=== PATIENT | female | born 1935 | race Caucasian/White ===

== ENCOUNTER → 2016-07-15 | Outpatient (CLI) | payer OTHER ==
[~2016-07-15] MED LIST: ARTISPR PO; BIOF500T PO; CALC-20 PO; CHLL PO; CHOL1000 PO; CRAN500C2 PO; CYAN1LOZ PO; FEXO1TAB49 PO; FLV1 PO; FLX10 PO; FRS/40 PO; GLC/500 PO; HYDR-5688 PO; HYDR5SYP11 PO; INSU1.2I SC; IPRA0.037 NAE; LORA-741 PO; LOSA1TAB PO; LUTE15CA PO; MAGNTAB4 PO; METH2.5T PO; METO1TAB66 PO; PANT40TA PO; POTA10CA28 PO; PROB1TAB16 PO; SIMV20TA2 PO; SPIR50TA2 PO; TOCI80IN INJ; WARF-283 PO; WARF4TAB8 PO; ZNTT/150 PO
[2016-07-15 09:33] LABS: BASO % 0.4 %; BASO ABS # 0.04 K/uL (0-0.2); COMPLETE YES; EOS % 3.8 %; HEMATOCRIT 40.1 % (37-47); IG% 0.2 %; LYMPH % 17.9 %; LYMPH ABS # 1.76 K/uL (1.2-3.4); MEAN CELL VOLUME 93.7 fL (80-100); MEAN CORPUSCULAR HGB CONC 34.2 g/dl (32-36); MEAN PLATELET VOLUME 9.4 fL (7.4-10.4); MONO % 6.1 %; NEUT % 71.6 %; PLATELET COUNT 269 K/uL (130-400); RED BLOOD COUNT 4.28 M/uL (4.2-5.4); WHITE BLOOD COUNT 9.85 K/uL (4.8-10.8)
[2016-07-15 09:42] LABS: BLOOD UREA NITROGEN 40 mg/dl (7-18); CALCIUM 9.6 mg/dl (8.5-10.1); CARBON DIOXIDE 26 mmol/L (21-32); CHLORIDE 99 mmol/L (98-107); GLUCOSE 165 mg/dl (70-99); PHOSPHORUS 3.2 mg/dl (2.5-4.9); POTASSIUM 4.4 mmol/L (3.5-5.1); SODIUM 137 mmol/L (136-145)
== END | disposition home or self-care (01) ==
LOC: C.LAB1850 08:13
PROVIDERS: ATTEND Internal Medicine Nephrology
DX: I50.22 Chronic systolic (congestive) heart failure (principal); N18.3 Chronic kidney disease, stage 3 (moderate)

== ENCOUNTER → 2016-09-11 | Outpatient (CLI) | payer OTHER ==
[~2016-09-11] MED LIST changes: +METO-452 PO; -METO1TAB66 PO
[2016-09-11 09:52] LABS: ESTIMATED AVERAGE GLUCOSE 166 mg/dl; HA1C FLAG Normal (Normal)
[2016-09-11 10:04] LABS: ALT/SGPT 27 U/L (12-78); BLOOD UREA NITROGEN 36 mg/dl (7-18); BUN/CREATININE RATIO 21.2 (10-20); CALCIUM 9.6 mg/dl (8.5-10.1); CARBON DIOXIDE 26 mmol/L (21-32); CHLORIDE 99 mmol/L (98-107); CHOLESTEROL 134 mg/dl (0-200); GLUCOSE 177 mg/dl (70-99); POTASSIUM 4.2 mmol/L (3.5-5.1); SODIUM 134 mmol/L (136-145); TRIGLYCERIDES 176 mg/dl (0-150); VERY LOW DENSITY LIPOPROT CALC 35 mg/dl
[2016-09-11 10:14] LABS: ALB/GLOB RATIO 1.1 (0.9-2); ALKALINE PHOSPHATASE 65 U/L (45-117); AST/SGOT 20 U/L (15-37); CHOLESTEROL/HDL RATIO 3.4; HDL CHOLESTEROL 40 mg/dl; LDL CHOLESTEROL CALCULATED 59 mg/dl
[2016-09-11 10:54] LABS: RATIO 18.3 mcg/mg (0-30.0)
== END | disposition home or self-care (01) ==
LOC: C.LAB1850 08:50
PROVIDERS: ATTEND Family Medicine
DX: E11.9 Type 2 diabetes mellitus without complications (principal); Z51.81 Encounter for therapeutic drug level monitoring; Z79.01 Long term (current) use of anticoagulants; I48.91 Unspecified atrial fibrillation

== ENCOUNTER → 2017-01-28 | Outpatient (CLI) | payer OTHER ==
[~2017-01-28] MED LIST changes: -CALC-20 PO; -CHOL1000 PO; -CYAN1LOZ PO; -METO-452 PO; +METO1TAB66 PO; -PROB1TAB16 PO
[2017-01-28 09:40] LABS: BASO % 0.4 %; BASO ABS # 0.03 K/uL (0-0.2); COMPLETE YES; EOS % 3.2 %; IG% 0.1 %; LYMPH % 24.2 %; LYMPH ABS # 1.65 K/uL (1.2-3.4); MEAN CELL VOLUME 97.2 fL (80-100); MEAN CORPUSCULAR HEMOGLOBIN 31.8 pg (25-34); MEAN CORPUSCULAR HGB CONC 32.7 g/dl (32-36); MEAN PLATELET VOLUME 9.7 fL (7.4-10.4); MONO % 11.9 %; NEUT % 60.2 %; PLATELET COUNT 242 K/uL (130-400); RED BLOOD COUNT 4.22 M/uL (4.2-5.4); WHITE BLOOD COUNT 6.81 K/uL (4.8-10.8)
[2017-01-28 09:57] LABS: URINE PROTIEN/CREAT RATIO 0.2 (0-0.2); URINE TOTAL PROTEIN 13.2 mg/dl (0-11.9)
[2017-01-28 10:00] LABS: BLOOD UREA NITROGEN 38 mg/dl (7-18); CALCIUM 9.2 mg/dl (8.5-10.1); CARBON DIOXIDE 29 mmol/L (21-32); CHLORIDE 103 mmol/L (98-107); CHOLESTEROL 145 mg/dl (0-200); GLUCOSE 170 mg/dl (70-99); MAGNESIUM 2.2 mg/dl (1.8-2.4); POTASSIUM 4.5 mmol/L (3.5-5.1); SODIUM 138 mmol/L (136-145)
[2017-01-28 10:03] LABS: CHOLESTEROL/HDL RATIO 3.6; HDL CHOLESTEROL 40 mg/dl; LDL CHOLESTEROL CALCULATED 62 mg/dl; PHOSPHORUS 3.1 mg/dl (2.5-4.9); TRIGLYCERIDES 216 mg/dl (0-150); VERY LOW DENSITY LIPOPROT CALC 43 mg/dl
[2017-01-28 10:07] LABS: URINE APPEARANCE CLEAR (CLEAR); URINE BILIRUBIN NEG (NEG); URINE COLOR YELLOW; URINE NITRITE NEG (NEG); URINE PH 5.5 (4.5-7.5); URINE SPECIFIC GRAVITY 1.016 (1.000-1.030); UROBILINOGEN NEG (NEG); ZZUR CULT IF INDIC CLEAN CATCH NO
[2017-01-28 10:18] LABS: MANUAL MICROSCOPIC REQUIRED? NO; REVIEW REQ? NO
[2017-01-28 10:19] LABS: ESTIMATED AVERAGE GLUCOSE 160 mg/dl; HA1C FLAG Normal (Normal)
== END | disposition home or self-care (01) ==
LOC: C.LAB1850 07:55
PROVIDERS: ATTEND Nurse Practitioner Family
DX: N18.3 Chronic kidney disease, stage 3 (moderate) (principal); I48.0 Paroxysmal atrial fibrillation; E78.5 Hyperlipidemia, unspecified; I12.9 Hypertensive chronic kidney disease with stage 1 through stage 4 chronic kidney disease, or unspecified chronic kidney disease; E11.22 Type 2 diabetes mellitus with diabetic chronic kidney disease

== ENCOUNTER → 2017-04-08 | Outpatient (CLI) | payer OTHER ==
[~2017-04-08] MED LIST changes: -CRAN500C2 PO; -LUTE15CA PO; +METO-452 PO; -METO1TAB66 PO; -ZNTT/150 PO
--- NOTE | 2017-04-09 15:22 | MAMMOGRAPHY REPORT ---
BILATERAL DIGITAL SCREENING MAMMOGRAM WITH CAD: 04/08/2017 CLINICAL HISTORY: Routine screening. Patient has no complaints. TECHNIQUE: Current study was also evaluated with a Computer Aided Detection (CAD) system. Bilateral CC and MLO views were obtained. COMPARISON: Comparison is made to exams dated: 04/07/2016 mammogram, 03/21/2015 mammogram, 01/17/2014 m ammogram, 04/28/2013 mammogram, 10/19/2012 mammogram, and 10/17/2012 mammogram - [facility] nter. BREAST COMPOSITION: The tissue of both breasts is heterogeneously dense, which may obscure small mas ses. FINDINGS: No suspicious masses, calcifications, or areas of architectural distortion are noted in ei ther breast. There has been no significant interval change compared to prior exams. Bilateral asymme tries and bilateral benign-appearing calcifications are not significantly changed. A pacemaker proje cts over the left pectoralis muscle. IMPRESSION: ACR BI-RADS CATEGORY 2: BENIGN There is no mammographic evidence of malignancy. A 1 year screening mammogram is recommended. The pa tient will receive written notification of the results. Approximately 10% of breast cancers are not detected with mammography. A negative mammographic report should not delay biopsy if a clinically suggestive mass is present. Arely Agee M.D. ah/:04/08/2017 16:11:15 Motor Vehicle Escort Driver: Ashley ESCOBAR([place])([place])([place]), [facility] letter sent: Normal 1/2 BI-RADS Code: ACR BI-RADS Category 2: Benign
== END | disposition home or self-care (01) ==
LOC: C.MAMM 09:55
PROVIDERS: ATTEND Nurse Practitioner Family
DX: Z12.31 Encounter for screening mammogram for malignant neoplasm of breast (principal)

== ENCOUNTER → 2017-05-03 | Outpatient (CLI) | payer OTHER ==
[2017-05-03 09:41] LABS: URINE APPEARANCE CLEAR (CLEAR); URINE BILIRUBIN NEG (NEG); URINE COLOR YELLOW; URINE NITRITE NEG (NEG); URINE SPECIFIC GRAVITY 1.014 (1.000-1.030); UROBILINOGEN NEG (NEG); ZZUR CULT IF INDIC CLEAN CATCH NO
[2017-05-03 09:42] LABS: MANUAL MICROSCOPIC REQUIRED? NO; REVIEW REQ? NO
[2017-05-03 09:59] LABS: CREATININE, URINE 75.5 mg/dl; URINE PROTIEN/CREAT RATIO 0.2 (0-0.2); URINE TOTAL PROTEIN 11.5 mg/dl (0-11.9)
[2017-05-03 10:00] LABS: BLOOD UREA NITROGEN 33 mg/dl (7-18); BUN/CREATININE RATIO 18.7 (10-20); CARBON DIOXIDE 29 mmol/L (21-32); CHLORIDE 100 mmol/L (98-107); CREATININE 1.78 mg/dl (0.60-1.20); GLUCOSE 136 mg/dl (70-99); MAGNESIUM 2.1 mg/dl (1.8-2.4); POTASSIUM 4.3 mmol/L (3.5-5.1); SODIUM 137 mmol/L (136-145)
[2017-05-03 10:02] LABS: PHOSPHORUS 3.3 mg/dl (2.5-4.9); TRIGLYCERIDES 135 mg/dl (0-150)
[2017-05-03 10:05] LABS: ESTIMATED AVERAGE GLUCOSE 143 mg/dl; HA1C FLAG Normal (Normal)
== END | disposition home or self-care (01) ==
LOC: C.LAB1850 07:51
PROVIDERS: ATTEND Internal Medicine Nephrology
DX: N18.3 Chronic kidney disease, stage 3 (moderate) (principal); E78.5 Hyperlipidemia, unspecified; E11.9 Type 2 diabetes mellitus without complications; E11.42 Type 2 diabetes mellitus with diabetic polyneuropathy

== ENCOUNTER → 2017-07-19 | Outpatient (CLI) | payer OTHER ==
[~2017-07-19] MED LIST changes: -ARTISPR PO; -FEXO1TAB49 PO; -FLX10 PO; -HYDR-5688 PO; -HYDR5SYP11 PO; -LORA-741 PO; -MAGNTAB4 PO; +MONT1TAB5 PO; -POTA10CA28 PO
[2017-07-19 14:59] LABS: HEMATOCRIT 41.4 % (37-47); HEMOGLOBIN 14.2 g/dL (12.0-16.0); MEAN CELL VOLUME 94.1 fL (80-100); MEAN CORPUSCULAR HEMOGLOBIN 32.3 pg (25-34); MEAN CORPUSCULAR HGB CONC 34.3 g/dl (32-36); MEAN PLATELET VOLUME 9.6 fL (7.4-10.4); PLATELET COUNT 223 K/uL (130-400); RED CELL DISTRIBUTION WIDTH CV 14.8 % (11.5-14.5); RED CELL DISTRIBUTION WIDTH SD 49.3 fL (36.4-46.3); WHITE BLOOD COUNT 8.06 K/uL (4.8-10.8)
[2017-07-19 15:29] LABS: ALBUMIN 3.9 gm/dl (3.4-5.0); ALT/SGPT 28 U/L (12-78); AST/SGOT 22 U/L (15-37); BLOOD UREA NITROGEN 42 mg/dl (7-18); CALCIUM 9.3 mg/dl (8.5-10.1); CARBON DIOXIDE 25 mmol/L (21-32); CREATININE 1.97 mg/dl (0.60-1.20); GLUCOSE 110 mg/dl (70-99); POTASSIUM 4.2 mmol/L (3.5-5.1); SODIUM 134 mmol/L (136-145)
[2017-07-19 15:39] LABS: ALKALINE PHOSPHATASE 72 U/L (45-117); TOTAL PROTEIN 7.6 gm/dl (6.4-8.2)
== END | disposition home or self-care (01) ==
LOC: C.LAB1850 14:03
PROVIDERS: ATTEND Physician Assistant
DX: I50.22 Chronic systolic (congestive) heart failure (principal); R06.02 Shortness of breath

== ENCOUNTER → 2017-08-07 | Outpatient (CLI) | payer OTHER ==
[~2017-08-07] MED LIST changes: -GLC/500 PO
[2017-08-07 07:52] LABS: BASO % 0.9 %; BASO ABS # 0.06 K/uL (0-0.2); EOS % 4.6 %; HEMATOCRIT 43.3 % (37-47); HEMOGLOBIN 14.9 g/dL (12.0-16.0); IG# 0.02 K/uL (0.00-0.02); LYMPH % 31.4 %; LYMPH ABS # 2.06 K/uL (1.2-3.4); MEAN CELL VOLUME 93.7 fL (80-100); MEAN CORPUSCULAR HEMOGLOBIN 32.3 pg (25-34); MEAN CORPUSCULAR HGB CONC 34.4 g/dl (32-36); MEAN PLATELET VOLUME 9.3 fL (7.4-10.4); MONO % 10.2 %; MONO ABS # 0.67 K/uL (0.11-0.59); NEUT % 52.6 %; NEUT ABS # 3.46 K/uL (1.4-6.5); PLATELET COUNT 229 K/uL (130-400); RED CELL DISTRIBUTION WIDTH CV 15.5 % (11.5-14.5); RED CELL DISTRIBUTION WIDTH SD 51.6 fL (36.4-46.3); WHITE BLOOD COUNT 6.57 K/uL (4.8-10.8)
[2017-08-07 08:25] LABS: ALBUMIN 4.3 gm/dl (3.4-5.0); ALT/SGPT 30 U/L (12-78); BLOOD UREA NITROGEN 54 mg/dl (7-18); CALCIUM 9.4 mg/dl (8.5-10.1); CARBON DIOXIDE 30 mmol/L (21-32); CHOLESTEROL 156 mg/dl (0-200); CREATININE 2.05 mg/dl (0.60-1.20); CREATININE RANDOM URINE 73.5 mg/dl; GLUCOSE 150 mg/dl (70-99); POTASSIUM 4.1 mmol/L (3.5-5.1); SODIUM 136 mmol/L (136-145)
[2017-08-07 08:33] LABS: ALKALINE PHOSPHATASE 87 U/L (45-117); AST/SGOT 21 U/L (15-37); LDL CHOLESTEROL CALCULATED 79 mg/dl; TOTAL PROTEIN 8.1 gm/dl (6.4-8.2)
== END | disposition home or self-care (01) ==
LOC: C.LAB 06:59
PROVIDERS: ATTEND Nurse Practitioner Family
DX: E78.5 Hyperlipidemia, unspecified (principal); I13.0 Hypertensive heart and chronic kidney disease with heart failure and stage 1 through stage 4 chronic kidney disease, or unspecified chronic kidney disease; N18.3 Chronic kidney disease, stage 3 (moderate); E11.22 Type 2 diabetes mellitus with diabetic chronic kidney disease; K21.9 Gastro-esophageal reflux disease without esophagitis; E11.42 Type 2 diabetes mellitus with diabetic polyneuropathy; I49.3 Ventricular premature depolarization; I50.22 Chronic systolic (congestive) heart failure

== ENCOUNTER → 2017-10-11 | Outpatient (CLI) | payer OTHER | END | disposition home or self-care (01) | LOC: C.LABSPEC 16:48 | PROVIDERS: ATTEND Nurse Practitioner Family | DX: R39.9 Unspecified symptoms and signs involving the genitourinary system (principal); H61.23 Impacted cerumen, bilateral ==

== ENCOUNTER → 2017-11-03 | Outpatient (CLI) | payer OTHER ==
[2017-11-03 16:35] LABS: BASO % 0.6 %; BASO ABS # 0.04 K/uL (0-0.2); EOS % 3.5 %; EOS ABS # 0.25 K/uL (0-0.5); HEMATOCRIT 44.3 % (37-47); HEMOGLOBIN 14.7 g/dL (12.0-16.0); IG# 0.01 K/uL (0.00-0.02); LYMPH % 30.1 %; LYMPH ABS # 2.17 K/uL (1.2-3.4); MEAN CELL VOLUME 96.7 fL (80-100); MEAN CORPUSCULAR HEMOGLOBIN 32.1 pg (25-34); MEAN CORPUSCULAR HGB CONC 33.2 g/dl (32-36); MEAN PLATELET VOLUME 9.9 fL (7.4-10.4); MONO ABS # 0.65 K/uL (0.11-0.59); NEUT % 56.7 %; NEUT ABS # 4.08 K/uL (1.4-6.5); PLATELET COUNT 245 K/uL (130-400); RED CELL DISTRIBUTION WIDTH SD 48.3 fL (36.4-46.3)
[2017-11-03 16:47] LABS: ALBUMIN 4.5 gm/dl (3.4-5.0); BLOOD UREA NITROGEN 39 mg/dl (7-18); CALCIUM 9.3 mg/dl (8.5-10.1); CARBON DIOXIDE 31 mmol/L (21-32); CREATININE 1.94 mg/dl (0.60-1.20); GLUCOSE 110 mg/dl (70-99); POTASSIUM 4.8 mmol/L (3.5-5.1); SODIUM 137 mmol/L (136-145)
[2017-11-03 16:48] LABS: PHOSPHORUS 3.4 mg/dl (2.5-4.9)
== END | disposition home or self-care (01) ==
LOC: C.LAB1850 15:00
PROVIDERS: ATTEND Nurse Practitioner Family
DX: N18.3 Chronic kidney disease, stage 3 (moderate) (principal); R39.9 Unspecified symptoms and signs involving the genitourinary system

== ENCOUNTER 2021-01-22 17:40 | Inpatient (IN) ==
--- NOTE | 2021-01-22 18:50 | Emergency Department Note ---
Impression & Plan Abdominal pain, Vomiting and diarrhea, MARY (acute kidney injury), Ventricular bigeminy ED Provider Note NAME: SWETHA MCCLOUD AGE: 85 SEX: F : 1935 ARRIVES VIA: Walk-In INFORMANT: Patient ED PROVIDER(S): Naeem Red DO CHIEF COMPLAINT: Nausea vomiting diarrhea HPI: Patient is an 85-year-old female who presents the ER for nausea, vomiting, and diarrhea. Her symptoms started in the past 24 hours. She notes that she is unable to keep anything down. She has a biventricular ICD in place. She has been using Coumadin. She has not been able to keep any of her medications down today. She recently started amiodarone 2 days ago when these symptoms started. They question if it is secondary to this. No dysuria, urgency, or frequency. No other exacerbating or remitting factors. She does not have any chest pain. She does have some mild shortness of breath. She does admit to some chest pain he describes as burning in the epigastric region coming up into the chest. ROS: See above HPI for pertinent positives & negatives. A total of 10 systems reviewed and were otherwise negative. PAST MEDICAL HISTORY:See Below PAST SURGICAL HISTORY:See Below FAMILY HISTORY:See Below SOCIAL HISTORY:See Below HOME MEDICATIONS:See Below ALLERGIES:See Below VITALS:See Below PHYSICAL EXAMINATION: GENERAL: Sitting up in bed, alert, chronically ill appearing, well nourished, no distress, non-toxic EYE EXAM: normal conjunctiva. OROPHARYNX: no exudate, no erythema, lips, buccal mucosa, and tongue normal and mucous membranes are moist NECK: supple, no nuchal rigidity, no adenopathy, non-tender CHEST: Pacer in left upper chest wall LUNGS: Clear to auscultation. Normal chest wall mechanics HEART: no murmurs, S1 normal and S2 normal ABDOMEN: abdomen soft, non-tender, normo-active bowel sounds, no masses, no rebound or guarding. UPPER EXTREMITIES: upper extremities are grossly normal. LOWER EXTREMITIES: No pitting edema. NEURO EXAM: Normal sensorium, cranial nerves II-XII grossly intact, normal speech, no gross weakness of arms, no gross weakness of legs. MEDICAL DECISION MAKING: Patient is an 85-year-old female who presents the ER for the above-stated complaint. She was recently in cardiology's office and switched to amiodarone due to ventricular bigeminy which was thought to be causing her slight volume overload as well as her weakness and lethargy with a heart rate in the 40s. IV was established blood was obtained. Labs show a leukocytosis 12,000. No significant anemia. BMP with mild hyponatremia 133. Creatinine at 2.38 up from a baseline of what appears to be 2.1. LFTs bilirubin was unremarkable. Lipase was normal. Troponin was negative. UA was clean. Patient was interrogated and showed paced rhythm per report. Covid was ordered. Discussed with Dr. Yung in regards to switching the amiodarone as I question if this is causing her worsening GI symptoms as she is not able to keep anything down. Also consistent with diarrhea. CT just showed gastroenteritis. Patient was given IV fluids Zofran and GI cocktail. She did feel significantly better. Dr. Copeland recommended observation. Discussed with the hospitalist Mimi Lopez was updated. Triage Nursing notes reviewed. Limited review of prior medical records performed Vital Signs: reviewed and remarkable for no significant abnormalities Differential diagnosis: Differential diagnoses includes but is not limited to gastritis, peptic ulcer disease, GERD, gallbladder disease, pancreatitis, small bowel obstruction, acute coronary syndrome, pericarditis, ischemic bowel, irritable bowel disease, irritable bowel syndrome, appendicitis, diverticulitis, malignancy, hernia, urinary tract infection, torsion, perforation, trauma, infectious. ER treatment provided: See below Diagnostics interpreted by me: ECG: Biventricular paced rated 90 with bigeminy Left axis QTC 501 No significant change from previous Cardiac Monitoring: An order was placed for continuous cardiac monitoring. The monitor shows a rate of 80 with sinus rhythm. Laboratory studies: As stated above and show below. Imaging studies: CT abdomen pelvis shows gastroenteritis Portable AP upright 1 view of the chest was unremarkable Consultation(s): Discussed with Dr. Lars Morrison from cardiology recommended admission Discussed with Mimi Lopez for admission Procedures: none Critical Care: None Past Med/Surg History Medical History Acquired claw toe of right foot Anxiety Asymmetrical right sensorineural hearing loss Biventricular ICD (implantable cardioverter-defibrillator) in place (2015) Chronic systolic congestive heart failure Degenerative joint disease (DJD) of lumbar spine Depression Diabetes mellitus with neuropathy Diabetic peripheral neuropathy Dyslipidemia Foot deformity GERD without esophagitis Hallux abducto valgus, bilateral History of basal cell carcinoma Hypertension Non-ischemic cardiomyopathy Normal coronary arteries (2015) PAC (premature atrial contraction) Rheumatoid arthritis Secondary hyperparathyroidism Sensorineural hearing loss (SNHL) of both ears SNHL (sensorineural hearing loss) Stage III chronic kidney disease Third degree AV block Surgical History S/P cataract extraction and insertion of intraocular lens S/P cholecystectomy S/P total knee arthroplasty S/P tubal ligation Family History Father Heart disease Mother Diabetes Heart disease Myocardial infarction Grandfather (Maternal) Prostate cancer Other Family history non-contributory Denies family history of Ovarian cancer Breast cancer Colorectal cancer Social History Smoking Status: Never smoker Hx Alcohol Use: No Hx Substance Use: No Preferred Language: Occitan Communication Ability: Effective Visual Impairment: No Limitations Hearing Ability: Use of Hearing Aid marital status: Current Living Situation: Spouse current occupational status: retired Feels Safe at Home: Yes Childhood Exposure to Second-Hand Smoke: Yes Dental Care, Regularly: Yes Physical Activity Frequency: Does not Exercise Seatbelt Use: always Sunscreen Use: Yes Allergies Allergies Allergy/AdvReac Type Severity Reaction Status Date / Time aspirin AdvReac Unknown history of Verified 01/22/21 18:52 ulcers nortriptyline AdvReac Unknown DOESN'T Verified 01/22/21 18:52 REMEMBER Home Meds Home Medications Medication Instructions Recorded Confirmed tocilizumab 80 mg/4 mL (20 mg/mL) 0 mg IV Q28D ml 03/03/18 01/22/21 intravenous solution ascorbate calcium-bioflavonoid 1 tab PO QAM 11/11/18 01/22/21 1,000 mg-200 mg tablet (Annamaria-C with Bioflavonoids) calcium polycarbophil 625 mg 650 mg PO QAM PRN 02/10/19 01/22/21 tablet (Fiber (calcium polycarbophil)) methotrexate sodium 2.5 mg tablet 5 mg PO SA tab 03/30/19 01/22/21 diclofenac sodium 1 % topical gel 2 g TOPICAL QID PRN 01/22/21 01/22/21 Previous Rx's Medication Instructions Recorded folic acid 1 mg tablet 1 mg PO DAILY #90 tab 07/14/19 ipratropium bromide 21 mcg (0.03 2 sprays INTNAS BID PRN #30 ml 09/29/19 %) nasal spray meclizine 25 mg tablet 25 mg PO TID PRN #30 tab 12/20/19 blood-glucose meter (OneTouch #1 ea 12/21/19 Ultra2 Meter) lorazepam 0.5 mg tablet 0.5 mg PO BID PRN #60 tab 03/12/20 cholecalciferol (vitamin D3) 50 2,000 unit PO QAM #90 cap 03/25/20 mcg (2,000 unit) capsule (Vitamin D3) blood sugar diagnostic (OneTouch #100 ea 04/17/20 Ultra Blue Test Strip) calcitriol 0.25 mcg capsule 0.25 mcg PO DAILY #90 cap 05/16/20 insulin lispro 100 unit/mL See Rx Instructions SQ AC #15 ml 05/16/20 subcutaneous pen (Humalog KwikPen (U-100) Insulin) spironolactone 50 mg tablet 50 mg PO QAM #90 tab 06/04/20 pen needle, diabetic 32 gauge x #100 ea 08/02/2006/17" (BD Ultra-Fine Micro Pen Needle) cyclobenzaprine 10 mg tablet 10 mg PO TID PRN #30 tab 08/13/20 montelukast 10 mg tablet 10 mg PO DAILY #90 tab 08/21/20 metoprolol succinate 50 mg 75 mg PO BID #270 tab 08/23/20 tablet,extended release 24 hr furosemide 40 mg tablet 40 mg PO .COMPLEX #135 tab 10/04/20 simvastatin 20 mg tablet 20 mg PO DAILY #90 tab 10/04/20 insulin glargine U-300 conc 300 22 unit SUBCUT DAILY #4.5 ml 11/26/20 unit/mL (1.5 mL) subcutaneous pen (Toujeo SoloStar U-300 Insulin) ondansetron 4 mg disintegrating 4 mg PO Q6H PRN #14 tab 12/12/20 tablet omeprazole 40 mg capsule,delayed 40 mg PO DAILY #30 cap 12/16/20 release warfarin 4 mg tablet (Jantoven) See Rx Instructions PO UD #75 tab 01/03/21 amiodarone 200 mg tablet 200 mg PO TID #90 tab 01/20/21 Results & Data (ED) Vital Signs Vital Signs - 24 hr 01/22/21 18:13 01/22/21 18:28 01/22/21 19:20 Temperature 36.5 C Temperature Source Temporal Artery Scan Pulse Rate 41 L 83 Pulse Rate from SpO2 Sensor Respiratory Rate 16 20 Respiratory Effort / Characteristics Non-Labored Spontaneous Respiratory Depth Normal Respiratory Pattern Regular Blood Pressure 117/59 L 130/64 Blood Pressure Mean 78 86 Blood Pressure Position Sitting Pulse Oximetry 93 96 94 Oxygen Delivery Method Room Air Room Air Sepsis Recent Fever Within 48 Hours No Sepsis New/Unexplained Change in Mental Status N/A Sepsis Action Taken by Nursing No Action Required 01/22/21 19:30 01/22/21 20:31 01/22/21 21:00 Temperature Temperature Source Pulse Rate 83 83 79 Pulse Rate from SpO2 Sensor 78 Respiratory Rate 18 21 22 Respiratory Effort / Characteristics Respiratory Depth Respiratory Pattern Blood Pressure 146/62 H 130/65 118/64 Blood Pressure Mean 90 86 82 Blood Pressure Position Pulse Oximetry 95 96 95 Oxygen Delivery Method Sepsis Recent Fever Within 48 Hours Sepsis New/Unexplained Change in Mental Status Sepsis Action Taken by Nursing 01/22/21 21:30 01/22/21 22:00 01/22/21 22:30 Temperature Temperature Source Pulse Rate 76 75 82 Pulse Rate from SpO2 Sensor 70 71 80 Respiratory Rate 18 18 20 Respiratory Effort / Characteristics Respiratory Depth Respiratory Pattern Blood Pressure 128/77 119/75 116/89 Blood Pressure Mean 94 89 98 Blood Pressure Position Pulse Oximetry 95 96 95 Oxygen Delivery Method Sepsis Recent Fever Within 48 Hours Sepsis New/Unexplained Change in Mental Status Sepsis Action Taken by Nursing 01/22/21 23:00 01/22/21 23:31 Temperature Temperature Source Pulse Rate 70 68 Pulse Rate from SpO2 Sensor 69 69 Respiratory Rate 17 20 Respiratory Effort / Characteristics Respiratory Depth Respiratory Pattern Blood Pressure 115/67 116/74 Blood Pressure Mean 83 88 Blood Pressure Position Pulse Oximetry 94 95 Oxygen Delivery Method Sepsis Recent Fever Within 48 Hours Sepsis New/Unexplained Change in Mental Status Sepsis Action Taken by Nursing Laboratory Data Result diagrams: 01/22/21 Unknown 01/22/21 Unknown Lab Results 01/22/21 01/22/21 01/22/21 Range/Units 18:52 22:21 Unknown WBC 12.19 H (4.8-10.8) K/uL RBC 4.33 (4.2-5.4) M/uL Hgb 13.8 (12.0-16.0) g/dL POC Hgb 14.6 (12.0-16.0) g/dl Hct 41.2 (37-47) % POC Hct 43 (37-47) % MCV 95.2 (80-100) fL MCH 31.9 (25-34) pg MCHC 33.5 (32-36) g/dL RDW Std Deviation 51.4 H (36.4-46.3) fL RDW Coeff of Shai 15.1 H (11.5-14.5) % Plt Count 211 (130-400) K/uL MPV 9.7 (7.4-10.4) fL Immature Gran % (Auto) 0.2 % Neut % (Auto) 84.2 % Lymph % (Auto) 11.9 % [place] % (Auto) 2.5 % Eos % (Auto) 1.0 % Baso % (Auto) 0.2 % Neut # (Auto) 10.26 H (1.4-6.5) K/uL Lymph # (Auto) 1.45 (1.2-3.4) K/uL [place] # (Auto) 0.31 (0.11-0.59) K/uL Eos # (Auto) 0.12 (0-0.5) K/uL Baso # (Auto) 0.02 (0-0.2) K/uL Immature Gran # (Auto) 0.03 H (0.00-0.02) K/uL APTT (21.0-31.0) Seconds PTT Ratio POC Sodium 136 (135-144) mmol/L Sodium (136-145) mmol/L POC Potassium 3.9 (3.3-5.0) mmol/L Potassium (3.5-5.1) mmol/L POC Chloride 99 L (101-112) mmol/L Chloride (98-107) mmol/L Carbon Dioxide (21-32) mmol/L POC Total CO2 23 L (24-31) mmol/L Anion Gap (3-11) POC Anion Gap 18.0 (16-25) mmol/L POC BUN 50 H (7-18) mg/dl BUN (7-18) mg/dl Creatinine (0.6-1.2) mg/dl POC Creatinine 2.6 H (0.6-1.3) mg/dl Est Cr Clr Drug Dosing ml/min Est GFR ( Amer) ml/min Est GFR (Non-Af Amer) ml/min BUN/Creatinine Ratio (10-20) Glucose (70-99) mg/dl POC Glucose (other) 127 H (70-99) mg/dl Calcium (8.5-10.1) mg/dl POC Ioniz Calcium Ghassan 1.15 (1.12-1.32) mmol/l Total Bilirubin (0.2-1) mg/dl AST (15-37) U/L ALT (12-78) U/L Alkaline Phosphatase (45-117) U/L Troponin I (0-0.045) ng/ml Total Protein (6.4-8.2) gm/dl Albumin (3.4-5.0) gm/dl Globulin (2.5-4.0) gm/dl Albumin/Globulin Ratio (0.9-2) Lipase (73-393) U/L Urine Color Yellow Urine Appearance Clear (Clear) Urine pH 5.5 (4.5-7.5) Ur Specific [place] 1.009 (1.000-1.030) Urine Protein Negative (Negative) Urine Glucose (UA) Negative (Negative) Urine Ketones Negative (Negative) Urine Blood Negative (Negative) Urine Nitrite Negative (Negative) Urine Bilirubin Negative (Negative) Urine Urobilinogen Negative (Negative) Ur Leukocyte Esterase Negative (Negative) COVID-19 Eval Order 01/22/21 01/22/21 01/23/21 Range/Units Unknown Unknown 00:09 WBC (4.8-10.8) K/uL RBC (4.2-5.4) M/uL Hgb (12.0-16.0) g/dL POC Hgb (12.0-16.0) g/dl Hct (37-47) % POC Hct (37-47) % MCV (80-100) fL MCH (25-34) pg MCHC (32-36) g/dL RDW Std Deviation (36.4-46.3) fL RDW Coeff of Shai (11.5-14.5) % Plt Count (130-400) K/uL MPV (7.4-10.4) fL Immature Gran % (Auto) % Neut % (Auto) % Lymph % (Auto) % [place] % (Auto) % Eos % (Auto) % Baso % (Auto) % Neut # (Auto) (1.4-6.5) K/uL Lymph # (Auto) (1.2-3.4) K/uL [place] # (Auto) (0.11-0.59) K/uL Eos # (Auto) (0-0.5) K/uL Baso # (Auto) (0-0.2) K/uL Immature Gran # (Auto) (0.00-0.02) K/uL APTT 31.5 H (21.0-31.0) Seconds PTT Ratio 1.2 POC Sodium (135-144) mmol/L Sodium 133 L (136-145) mmol/L POC Potassium (3.3-5.0) mmol/L Potassium 3.9 (3.5-5.1) mmol/L POC Chloride (101-112) mmol/L Chloride 101 (98-107) mmol/L Carbon Dioxide 24 (21-32) mmol/L POC Total CO2 (24-31) mmol/L Anion Gap 8.0 (3-11) POC Anion Gap (16-25) mmol/L POC BUN (7-18) mg/dl BUN 50 H (7-18) mg/dl Creatinine 2.38 H (0.6-1.2) mg/dl POC Creatinine (0.6-1.3) mg/dl Est Cr Clr Drug Dosing 20.0 ml/min Est GFR ( Amer) 21.1 ml/min Est GFR (Non-Af Amer) 18.2 ml/min BUN/Creatinine Ratio 21.0 H (10-20) Glucose 124 H (70-99) mg/dl POC Glucose (other) (70-99) mg/dl Calcium 8.9 (8.5-10.1) mg/dl POC Ioniz Calcium Ghassan (1.12-1.32) mmol/l Total Bilirubin 1.2 H (0.2-1) mg/dl AST 26 (15-37) U/L ALT 36 (12-78) U/L Alkaline Phosphatase 92 (45-117) U/L Troponin I < 0.015 (0-0.045) ng/ml Total Protein 7.5 (6.4-8.2) gm/dl Albumin 4.0 (3.4-5.0) gm/dl Globulin 3.5 (2.5-4.0) gm/dl Albumin/Globulin Ratio 1.2 (0.9-2) Lipase 171 (73-393) U/L Urine Color Urine Appearance (Clear) Urine pH (4.5-7.5) Ur Specific [place] (1.000-1.030) Urine Protein (Negative) Urine Glucose (UA) (Negative) Urine Ketones (Negative) Urine Blood (Negative) Urine Nitrite (Negative) Urine Bilirubin (Negative) Urine Urobilinogen (Negative) Ur Leukocyte Esterase (Negative) COVID-19 Eval Order Covid19 at [facility] Administered Medications Discontinued Medications Al Hydrox/Mg Hydrox/Simethicone (Gi Cocktail Ed Use) 1 dose PO ONE ONE Stop: 01/22/21 21:54 Last Admin: 01/22/21 22:22 Dose: 1 dose Documented by: [id number] Sodium Chloride (Nss 1000ml) 1,000 mls @ 999 mls/hr IV .Q1H1M ONE Stop: 01/22/21 21:00 Last Infusion: 01/22/21 22:08 Dose: 0 mls/hr Documented by: [id number] Admin: 01/22/21 20:52 Dose: 999 mls/hr Documented by: [id number] Ondansetron HCl (Ondansetron Inj 2 Mg/Ml 2 Ml Vial) 4 mg IV NOW STA Stop: 01/22/21 20:01 Last Admin: 01/22/21 20:51 Dose: 4 mg Documented by: [id number] Imaging Data Radiologist's Impression: Chest X-Ray 01/22/21 18:28 SINGLE VIEW CHEST CLINICAL HISTORY: Atypical chest pain. FINDINGS: An AP, portable, upright chest radiograph is compared to study dated 12/12/2020. The examination is mildly degraded by portable technique and patient rotation. A multilead cardiac AICD is unchanged in position and partially obscures the left lower chest. The heart is mildly enlarged noting atherosclerotic calcification of the thoracic aorta. The pulmonary vasculature is noncongested. Scarring/atelectasis is noted at the lung bases. There are scattered calcified granulomas. No airspace consolidation or large pleural effusion is identified. No pneumothorax is seen. The skeletal structures are osteopenic. The bony thorax is grossly intact. Degenerative change is seen in the shoulders. IMPRESSION: 1. Cardiomegaly and AICD with no radiographic evidence of congestive failure. 2. No airspace consolidation or large pleural effusion is identified. ACT 112: Negative or not required by law. Electronically signed by: Carlyle Lovelace M.D. 01/22/2021 7:50 PM Abdomen/Pelvis CT 01/22/21 19:17 CT SCAN OF THE ABDOMEN AND PELVIS WITHOUT IV CONTRAST CLINICAL HISTORY: Generalized abdominal pain. COMPARISON STUDY: Abdominal CT dated 12/12/2020 TECHNIQUE: CT scan of the abdomen and pelvis is performed from the lung bases to the proximal femora. Images are reviewed in the axial, sagittal, and coronal planes. IV contrast was not administered for this examination. Note that the examination was performed in significantly suboptimal fashion without oral and IV contrast. A dose lowering technique was utilized adhering to the principles of ALARA. CT DOSE: 858.88 mGy.cm FINDINGS: Lung bases: The heart is normal in size and without pericardial effusion. Pacemaker leads are noted. The lung bases are clear noting bibasilar scarring/atelectasis. Liver: The unenhanced liver is normal in size, contour, and attenuation. There is no intrahepatic biliary ductal dilatation. Pneumobilia is noted. Gallbladder: Surgically absent noting clips in the gallbladder fossa. Spleen: Normal in size and attenuation. Pancreas: The unenhanced pancreas is atrophic and grossly unremarkable. Adrenal glands: Unremarkable. Kidneys: The unenhanced kidneys are atrophic and without hydronephrosis. There are punctate nonobstructing right renal calculi. No ureteral stone is seen. Simple and complex/hyperdense renal cysts are unchanged and measure up to 3.7 cm in diameter. Abdominal vasculature: The abdominal aorta is normal in course and caliber noting advanced atherosclerotic calcification. Bowel: The gastric wall appears thickened. There is advanced colonic diverticulosis without CT evidence of acute diverticulitis. No bowel obstruction is seen. There are small duodenal diverticula. The appendix is well-visualized and normal. Peritoneum: There is no intraperitoneal free air or abdominal ascites. There is a fat-containing umbilical hernia. Lymphadenopathy: None. Pelvic viscera: The bladder, uterus, and adnexa are normal as visualized. Skeletal structures: The skeletal structures are osteopenic. There is advanced lumbosacral spondylosis. No lytic or blastic lesions are seen. Soft tissues: Question a decubitus ulcer overlying the right ischial tuberosity with surrounding infiltration. IMPRESSION: 1. Significantly suboptimal examination without oral and IV contrast 2. The gastric wall appears thickened. This is not well assessed by CT, and could potentially be seen in the setting of gastritis. Clinical correlation will be required. Endoscopy could be considered for further assessment. 3. Question a decubitus ulcer overlying the right ischial tuberosity. This could also represent a prominent skinfold and correlation with direct visualization will required. 4. Advanced colonic diverticulosis without CT evidence of acute diverticulitis. 5. Additional findings as above. ACT 112: Negative or not required by law. Electronically signed by: Carlyle Lovelace M.D. 01/22/2021 9:12 PM Discharge Plan Visit Data Chief Complaint: Cardiac Assessment Stated Complaint: VOMITING, DIARRHEA, DEHYDRATION, CHEST PAIN ED Provider: Naeem Red Discharge Problem: Abdominal pain, Vomiting and diarrhea, MARY (acute kidney injury), Ventricular bigeminy Forms Stand Alone Forms: [facility] [email or web address] Prescriptions Prescriptions: No Action tocilizumab 80 mg/4 mL (20 mg/mL) solution 0 mg IV Q28D RF: 0 folic acid 1 mg tablet 1 mg PO DAILY Qty: 90 RF: 1 ipratropium bromide 0.03 % spray,non-aerosol 2 sprays INTNAS BID PRN (Reason: Congestion) Qty: 30 RF: 1 (DME) blood-glucose meter [OneTouch Ultra2 Meter] Misc See Rx Instructions .ROUTE .MEDSUPPLY Qty: 1 RF: 0 lorazepam 0.5 mg tablet 0.5 mg PO BID PRN (Reason: anxiety) Qty: 60 RF: 2 cholecalciferol (vitamin D3) [Vitamin D3] 50 mcg (2,000 unit) capsule 2,000 unit PO QAM Qty: 90 RF: 3 (DME) OneTouch Ultra Blue Test Strip Strip See Dose Instructions .ROUTE .MEDSUPPLY Qty: 100 RF: 5 Humalog KwikPen Insulin 100 unit/mL insulin pen See Rx Instructions SQ AC Qty: 15 RF: 5 spironolactone 50 mg tablet 50 mg PO QAM Qty: 90 RF: 3 (DME) pen needle, diabetic [BD Ultra-Fine Micro Pen Needle] 32 gauge x 1/4" needle See Dose Instructions .ROUTE .MEDSUPPLY Qty: 100 RF: 5 montelukast 10 mg tablet 10 mg PO DAILY Qty: 90 RF: 1 metoprolol succinate 50 mg tablet extended release 24 hr 75 mg PO BID Qty: 270 RF: 3 simvastatin 20 mg tablet 20 mg PO DAILY Qty: 90 RF: 1 furosemide 40 mg tablet 40 mg PO .COMPLEX Qty: 135 RF: 3 Toujeo SoloStar U-300 Insulin 300 unit/mL (1.5 mL) insulin pen 22 unit subcut DAILY Qty: 4.5 RF: 1 warfarin [Jantoven] 4 mg tablet See Rx Instructions PO UD Qty: 75 RF: 1 methotrexate sodium 2.5 mg tablet 5 mg PO SA RF: 0 calcitriol 0.25 mcg capsule 0.25 mcg PO DAILY Qty: 90 RF: 3 amiodarone 200 mg tablet 200 mg PO TID Qty: 90 RF: 3 meclizine 25 mg tablet 25 mg PO TID PRN (Reason: dizziness) Qty: 30 RF: 0 omeprazole 40 mg capsule,delayed release(DR/EC) 40 mg PO DAILY Qty: 30 RF: 2 cyclobenzaprine 10 mg tablet 10 mg PO TID PRN (Reason: muscle spasm) Qty: 30 RF: 0 Annamaria-C with Bioflavonoids 1,000-200 mg Tablet 1 tab PO QAM RF: 0 calcium polycarbophil [Fiber (calcium polycarbophil)] 625 mg tablet 650 mg PO QAM PRN (Reason: constipation) RF: 0 ondansetron 4 mg tablet,disintegrating 4 mg PO Q6H PRN (Reason: nausea and vomiting) Qty: 14 RF: 0 diclofenac sodium 1 % gel 2 g topical QID PRN (Reason: Pain) RF: 0 Referrals Referrals: Neftaly Allison III, CRNP [Primary Care Provider] - Discharge Problem: Abdominal pain Qualifiers: Abdominal location: unspecified location Qualified Code(s): R10.9 - Unspecified abdominal pain
[2021-01-22 18:56] LABS: Hematocrit (blood only) 41.2 % (37-47); Hemoglobin 13.8 g/dL (12.0-16.0); Mean Corpuscular Hemoglobin 31.9 pg (25-34); Mean Corpuscular Hgb Conc 33.5 g/dL (32-36); Mean Corpuscular Volume 95.2 fL (80-100); Mean Platelet Volume 9.7 fL (7.4-10.4); Platelet Count 211 K/uL (130-400); RDW Coefficient of Variation 15.1 % (11.5-14.5); RDW Standard Deviation 51.4 fL (36.4-46.3); Red Blood Count 4.33 M/uL (4.2-5.4); White Blood Count 12.19 K/uL (4.8-10.8)
[2021-01-22 19:04] LABS: iSTAT Creatinine 2.6 mg/dl (0.6-1.3); iSTAT Hemoglobin 14.6 g/dl (12.0-16.0); iSTAT Ionized Calcium 1.15 mmol/l (1.12-1.32); iSTAT Potassium 3.9 mmol/L (3.3-5.0)
[2021-01-22 19:07] LABS: Partial Thromboplastin Ratio 1.2; Partial Thromboplastin Time 31.5 Seconds (21.0-31.0)
[2021-01-22 19:15] LABS: Alanine Aminotransferase 36 U/L (12-78); Aspartate Aminotransferase 26 U/L (15-37); Blood Urea Nitrogen 50 mg/dl (7-18); Calcium 8.9 mg/dl (8.5-10.1); Carbon Dioxide 24 mmol/L (21-32); Chloride 101 mmol/L (98-107); Est GFR (African American) 21.1 ml/min; Est GFR (Non-African American) 18.2 ml/min; Glucose 124 mg/dl (70-99); Lipase 171 U/L (73-393); Potassium 3.9 mmol/L (3.5-5.1); Sodium 133 mmol/L (136-145)
[2021-01-22 19:33] LABS: Albumin Globulin Ratio 1.2 (0.9-2); Alkaline Phosphatase 92 U/L (45-117); Bilirubin,Total 1.2 mg/dl (0.2-1); Globulin 3.5 gm/dl (2.5-4.0); Total Protein 7.5 gm/dl (6.4-8.2); Troponin I < 0.015 ng/ml (0-0.045)
[2021-01-22 19:34] LABS: Basophils # (auto) 0.02 K/uL (0-0.2); Basophils % (auto) 0.2 %; Eosinophils # (auto) 0.12 K/uL (0-0.5); Immature Granulocytes # (auto) 0.03 K/uL (0.00-0.02); Immature Granulocytes % (auto) 0.2 %; Lymphocytes # (auto) 1.45 K/uL (1.2-3.4); Lymphocytes % (auto) 11.9 %; Monocytes # (auto) 0.31 K/uL (0.11-0.59); Monocytes % (auto) 2.5 %; Neutrophils # (auto) 10.26 K/uL (1.4-6.5); Neutrophils % (auto) 84.2 %
--- NOTE | 2021-01-22 19:51 | XRay Report ---
SINGLE VIEW CHEST CLINICAL HISTORY: Atypical chest pain. FINDINGS: An AP, portable, upright chest radiograph is compared to study dated 12/12/2020. The examinat ion is mildly degraded by portable technique and patient rotation. A multilead cardiac AICD is unchan ged in position and partially obscures the left lower chest. The heart is mildly enlarged noting athe rosclerotic calcification of the thoracic aorta. The pulmonary vasculature is noncongested. Scarring/ atelectasis is noted at the lung bases. There are scattered calcified granulomas. No airspace consoli dation or large pleural effusion is identified. No pneumothorax is seen. The skeletal structures are osteopenic. The bony thorax is grossly intact. Degenerative change is seen in the shoulders. IMPRESSION: 1. Cardiomegaly and AICD with no radiographic evidence of congestive failure. 2. No airspace consolidation or large pleural effusion is identified. ACT 112: Negative or not required by law. Electronically signed by: Carlyle Lovelace M.D. 01/22/2021 7:50 PM
[2021-01-22] MEDS ORDERED: ONDANSETRON INJ 2 MG/ML 2 ML VIAL IV STA (20:00)
[2021-01-22] MEDS ORDERED: SODIUM CHLORIDE 0.9% 1000ML 1,000 ML IV ONE (20:00)
--- NOTE | 2021-01-22 21:14 | CT Scan Report ---
CT SCAN OF THE ABDOMEN AND PELVIS WITHOUT IV CONTRAST CLINICAL HISTORY: Generalized abdominal pain. COMPARISON STUDY: Abdominal CT dated 12/12/2020 TECHNIQUE: CT scan of the abdomen and pelvis is performed from the lung bases to the proximal femora. Images are reviewed in the axial, sagittal, and coronal planes. IV contrast was not administered for this examination. Note that the examination was performed in significantly suboptimal fashion withou t oral and IV contrast. A dose lowering technique was utilized adhering to the principles of ALARA. CT DOSE: 858.88 mGy.cm FINDINGS: Lung bases: The heart is normal in size and without pericardial effusion. Pacemaker leads are noted. The lung bases are clear noting bibasilar scarring/atelectasis. Liver: The unenhanced liver is normal in size, contour, and attenuation. There is no intrahepatic hal iary ductal dilatation. Pneumobilia is noted. Gallbladder: Surgically absent noting clips in the gallbladder fossa. Spleen: Normal in size and attenuation. Pancreas: The unenhanced pancreas is atrophic and grossly unremarkable. Adrenal glands: Unremarkable. Kidneys: The unenhanced kidneys are atrophic and without hydronephrosis. There are punctate nonobstru cting right renal calculi. No ureteral stone is seen. Simple and complex/hyperdense renal cysts are u nchanged and measure up to 3.7 cm in diameter. Abdominal vasculature: The abdominal aorta is normal in course and caliber noting advanced atheroscle rotic calcification. Bowel: The gastric wall appears thickened. There is advanced colonic diverticulosis without CT eviden ce of acute diverticulitis. No bowel obstruction is seen. There are small duodenal diverticula. The a ppendix is well-visualized and normal. Peritoneum: There is no intraperitoneal free air or abdominal ascites. There is a fat-containing umbi lical hernia. Lymphadenopathy: None. Pelvic viscera: The bladder, uterus, and adnexa are normal as visualized. Skeletal structures: The skeletal structures are osteopenic. There is advanced lumbosacral spondylosi s. No lytic or blastic lesions are seen. Soft tissues: Question a decubitus ulcer overlying the right ischial tuberosity with surrounding infi ltration. IMPRESSION: 1. Significantly suboptimal examination without oral and IV contrast 2. The gastric wall appears thickened. This is not well assessed by CT, and could potentially be seen in the setting of gastritis. Clinical correlation will be required. Endoscopy could be considered fo r further assessment. 3. Question a decubitus ulcer overlying the right ischial tuberosity. This could also represent a pro minent skinfold and correlation with direct visualization will required. 4. Advanced colonic diverticulosis without CT evidence of acute diverticulitis. 5. Additional findings as above. ACT 112: Negative or not required by law. Electronically signed by: Carlyle Lovelace M.D. 01/22/2021 9:12 PM
[2021-01-22] MEDS ORDERED: GI COCKTAIL ED USE PO ONE (21:53)
[2021-01-22 22:50] LABS: Appearance Urine Clear (Clear); Bilirubin Urine Negative (Negative); Blood Urine Negative (Negative); Color Urine Yellow; Glucose Urine UA Negative (Negative); Ketones Urine Negative (Negative); Leukocyte Esterase Urine Negative (Negative); Nitrite Urine Negative (Negative); Protein Urine Negative (Negative); Specific Gravity Urine 1.009 (1.000-1.030); Urobilinogen Urine Negative (Negative); pH Urine 5.5 (4.5-7.5)
--- NOTE | 2021-01-23 01:26 | Billing Data ---
Date of Service January 23, 2021 Coding Level of Care Code INT OBSERVATION CARE 50M LVL 2
--- NOTE | 2021-01-23 01:28 | History & Physical Report ---
Date of Service January 23, 2021 Assessment & Plan (1) Vomiting and diarrhea: Plan: Etiology uncertain. Symptoms may be secondary to patient's underlying rhythm, poor perfusion. She is afebrile, HD stable, non-toxic in appearance. She does have a neutrophil predominant leukocytosis possibly reactive. Liver studies, lipase and electrolytes largely unremarkable. CT scan with possible gastritis. No recent antibiotic use. Patient received 1L of NSS in the ER - will hold off on additional fluids for now given cardiac rhythm and chance for volume overload. She doesn't seem overtly overloaded on exam. -Monitor electrolytes -Zofran PRN -Protonix 40mg IV daily (2) Ventricular bigeminy: Plan: Patient with BiV AICD in place, follows with Dr. Lees. Ventricular bigeminy possibly leading to poor perfusion state as well as symptoms of fatigue/dyspnea/SOB. Is on Metoprolol 75mg po BID. Was tried on Amiodarone but unable to tolerate due to GI side effects. -Telemetry monitoring -Monitor electrolytes and replete as needed -Continue Metoprolol 75mg po BID -Cardiology consultation appreciated re: additional rhythm control agents vs pacer adjustment (3) Chronic systolic congestive heart failure: Plan: Chronic. Possibly mild failure although not overtly overloaded -Continue Metoprolol 75mg po BID -Continue Spironolactone (4) Diabetes mellitus: Plan: Chronic. Blood sugar presently 124. Last HgbA1C= 7.1 on 01/02/21 -Continue insulin, novolog sliding scale -Goal blood sugar 100 - 140 -CC diet as tolerated (5) Dyslipidemia: Plan: Chronic -Continue Simvastatin 20mg po daily (6) Hypertension: Plan: Chronic. Well controlled. -Continue Metoprolol and Spironolactone -Continue to monitor (7) Paroxysmal atrial fibrillation: Plan: Ventricular bigeminy as above -Continue Metoprolol 75mg po BID -Continue Coumadin -Check INR (8) Rheumatoid arthritis: Plan: Chronic. Well controlled. On Methotrexate weekly (9) Secondary hyperparathyroidism: Plan: Chronic -Continue Calcitriol 0.25mcg po daily (10) GERD (gastroesophageal reflux disease): Plan: Chronic -Protonix 40mg IV daily for possible gastritis History of Present Illness Chief Complaint: weakness, fatigue Primary Care Provider: Neftaly Allison, [place], [place] Cary Taylor is an 85yo female with multiple medical problems to include steroid dependent RA, DM, HTN, HLP, CHF secondary to NICM with EF of 55-60% per echo 11/[address] place as well as paroxysmal atrial fibrillation. Patient reports several months of weakness, fatigue, decreased exercise tolerance as well as generalized abdominal pain, nausea/vomiting and diarrhea. She has has not tolerated oral intake for several days. She reports SOB and CARRILLO but denies edema/orthopnea/weight gain. Patient was seen in the ER with similar complaint on 12/12/20 and had a negative workup. Patient was contacted by [facility]iology on 01/20 due to concern for some problems with her device, possible volume overload. She follows with Dr. Lees. Per his note on 01/20/21 she has had freaquent PVCs noted by pacemaker as well as EKG which have been interfering with her pacing. She is presently in ventricular bigeminy, has had HR in the 40's although her device is set to 60. Patient was seen by Dr. Lees on 01/20/21 and was started on low dose oral Amiodarone to control ventricular dysrhythmia and improve output. Unfortunately she developed severe nausea with several episodes of non-bloody/non-bilious vomiting as well as multiple episodes of diarrhea. ER Course: Maalox, Zofran, NSS Allergies Allergy/AdvReac Type Severity Reaction Status Date / Time aspirin AdvReac Unknown history of Verified 01/22/21 18:52 ulcers nortriptyline AdvReac Unknown DOESN'T Verified 01/22/21 18:52 REMEMBER Home Medications Medication Instructions Recorded Confirmed Type tocilizumab 80 mg/4 mL (20 mg/mL) 0 mg IV Q28D ml 03/03/18 01/22/21 History intravenous solution ascorbate calcium-bioflavonoid 1 tab PO QAM 11/11/18 01/22/21 History 1,000 mg-200 mg tablet (Annamaria-C with Bioflavonoids) calcium polycarbophil 625 mg 650 mg PO QAM PRN 02/10/19 01/22/21 History tablet (Fiber (calcium polycarbophil)) methotrexate sodium 2.5 mg tablet 5 mg PO SA tab 03/30/19 01/22/21 History folic acid 1 mg tablet 1 mg PO DAILY #90 tab 07/14/19 01/22/21 Rx ipratropium bromide 21 mcg (0.03 2 sprays INTNAS BID PRN #30 ml 09/29/19 01/22/21 Rx %) nasal spray meclizine 25 mg tablet 25 mg PO TID PRN #30 tab 12/20/19 01/22/21 Rx blood-glucose meter (OneTouch #1 ea 12/21/19 01/08/21 Rx Ultra2 Meter) lorazepam 0.5 mg tablet 0.5 mg PO BID PRN #60 tab 03/12/20 01/22/21 Rx cholecalciferol (vitamin D3) 50 2,000 unit PO QAM #90 cap 03/25/20 01/22/21 Rx mcg (2,000 unit) capsule (Vitamin D3) blood sugar diagnostic (OneTouch #100 ea 04/17/20 01/08/21 Rx Ultra Blue Test Strip) calcitriol 0.25 mcg capsule 0.25 mcg PO DAILY #90 cap 05/16/20 01/22/21 Rx insulin lispro 100 unit/mL See Rx Instructions SQ AC #15 ml 05/16/20 01/22/21 Rx subcutaneous pen (Humalog KwikPen (U-100) Insulin) spironolactone 50 mg tablet 50 mg PO QAM #90 tab 06/04/20 01/22/21 Rx pen needle, diabetic 32 gauge x #100 ea 08/02/20 01/08/21 Rx 1/4" (BD Ultra-Fine Micro Pen Needle) cyclobenzaprine 10 mg tablet 10 mg PO TID PRN #30 tab 08/13/20 01/22/21 Rx montelukast 10 mg tablet 10 mg PO DAILY #90 tab 08/21/20 01/22/21 Rx metoprolol succinate 50 mg 75 mg PO BID #270 tab 08/23/20 01/22/21 Rx tablet,extended release 24 hr furosemide 40 mg tablet 40 mg PO .COMPLEX #135 tab 10/04/20 01/22/21 Rx simvastatin 20 mg tablet 20 mg PO DAILY #90 tab 10/04/20 01/22/21 Rx insulin glargine U-300 conc 300 22 unit SUBCUT DAILY #4.5 ml 11/26/20 01/22/21 Rx unit/mL (1.5 mL) subcutaneous pen (Toujeo SoloStar U-300 Insulin) ondansetron 4 mg disintegrating 4 mg PO Q6H PRN #14 tab 12/12/20 01/22/21 Rx tablet omeprazole 40 mg capsule,delayed 40 mg PO DAILY #30 cap 12/16/20 01/22/21 Rx release warfarin 4 mg tablet (Jantoven) See Rx Instructions PO UD #75 tab 01/03/21 01/22/21 Rx amiodarone 200 mg tablet 200 mg PO TID #90 tab 01/20/21 01/22/21 Rx diclofenac sodium 1 % topical gel 2 g TOPICAL QID PRN 01/22/21 01/22/21 History Past Med/Surg History Medical History Acquired claw toe of right foot Anxiety Asymmetrical right sensorineural hearing loss Biventricular ICD (implantable cardioverter-defibrillator) in place (2015) Chronic systolic congestive heart failure Degenerative joint disease (DJD) of lumbar spine Depression Diabetes mellitus with neuropathy Diabetic peripheral neuropathy Dyslipidemia Foot deformity GERD without esophagitis Hallux abducto valgus, bilateral History of basal cell carcinoma Hypertension Non-ischemic cardiomyopathy Normal coronary arteries (2014) PAC (premature atrial contraction) Rheumatoid arthritis Secondary hyperparathyroidism Sensorineural hearing loss (SNHL) of both ears SNHL (sensorineural hearing loss) Stage III chronic kidney disease Third degree AV block Surgical History S/P cataract extraction and insertion of intraocular lens S/P cholecystectomy S/P total knee arthroplasty S/P tubal ligation Family History Father Heart disease Mother Diabetes Heart disease Myocardial infarction Grandfather (Maternal) Prostate cancer Other Family history non-contributory Denies family history of Ovarian cancer Breast cancer Colorectal cancer Social History Smoking Status: Never smoker Hx Alcohol Use: No Hx Substance Use: No Preferred Language: Chilean Communication Ability: Effective Visual Impairment: No Limitations Hearing Ability: Use of Hearing Aid marital status: Current Living Situation: Spouse current occupational status: retired Feels Safe at Home: Yes Childhood Exposure to Second-Hand Smoke: Yes Dental Care, Regularly: Yes Physical Activity Frequency: Does not Exercise Seatbelt Use: always Sunscreen Use: Yes Review of Systems Review of Systems: All systems reviewed & are unremarkable except as noted in HPI & below +Weakness, fatigue, SOB, CARRILLO, nausea, vomiting, diarrhea, poor exercise tolerance Physical Exam Physical Exam: General: patient resting comfortably, NAD, non-toxic in appearance, AA&O x 4 Skin: warm, dry, intact, no rashes or lesions HEENT: NC/AT, PERRL, EOMI, anicteric sclera, conjunctiva without injection, external ear normal to inspection and nontender, nares patent, moist mucus membranes, dentition intact, no oropharyngeal lesions, neck supple, trachea midline, no LAD, no thyromegaly, no JVD Heart: +S1/S2, regular with episodes of regularly irregular rhythm corresponding to ventricular bigeminy on monitor, no m/r/g Lungs: equal air entry bilaterally, crackles in bilateral bases, no rhonchi/wheezes Abd: +BS, soft, ND, mildly tender in LLQ with no rebound/guarding, peritoneal signs, no masses/organomegaly/ascites Ext: warm, 2+ pulses in UE/LE bilaterally, no clubbing/cyanosis or edema Neuro: nonfocal, patient AA&O x 4, speech intact, no facial droop, moving all extremities on command with equal strength 5/5 Results & Data Results & Data ([facility]) Vital Signs (Past 12 Hours) Vital Signs Temp Pulse Resp BP Pulse Ox 01/23/21 01:00 80 19 116/52 L 94 01/23/21 00:30 79 15 95 01/23/21 00:20 75 17 94 01/23/21 00:10 78 20 94 01/22/21 23:31 68 20 116/74 95 01/22/21 23:00 70 17 115/67 94 01/22/21 22:30 82 20 116/89 95 01/22/21 22:00 75 18 119/75 96 01/22/21 21:30 76 18 128/77 95 01/22/21 21:00 79 22 118/64 95 01/22/21 20:31 83 21 130/65 96 01/22/21 19:30 83 18 146/62 H 95 01/22/21 19:20 83 20 130/64 94 01/22/21 18:28 96 01/22/21 18:13 36.5 C 41 L 16 117/59 L 93 Laboratory Results Laboratory Results WBC 12.19 K/uL (4.8-10.8) H 01/22/21 Unknown RBC 4.33 M/uL (4.2-5.4) 01/22/21 Unknown Hgb 13.8 g/dL (12.0-16.0) 01/22/21 Unknown POC Hgb 14.6 g/dl (12.0-16.0) 01/22/21 18:52 Hct 41.2 % (37-47) 01/22/21 Unknown POC Hct 43 % (37-47) 01/22/21 18:52 MCV 95.2 fL (80-100) 01/22/21 Unknown MCH 31.9 pg (25-34) 01/22/21 Unknown MCHC 33.5 g/dL (32-36) 01/22/21 Unknown RDW Std Deviation 51.4 fL (36.4-46.3) H 01/22/21 Unknown RDW Coeff of Shai 15.1 % (11.5-14.5) H 01/22/21 Unknown Plt Count 211 K/uL (130-400) 01/22/21 Unknown MPV 9.7 fL (7.4-10.4) 01/22/21 Unknown Immature Gran % (Auto) 0.2 % 01/22/21 Unknown Neut % (Auto) 84.2 % 01/22/21 Unknown Lymph % (Auto) 11.9 % 01/22/21 Unknown [place] % (Auto) 2.5 % 01/22/21 Unknown Eos % (Auto) 1.0 % 01/22/21 Unknown Baso % (Auto) 0.2 % 01/22/21 Unknown Neut # (Auto) 10.26 K/uL (1.4-6.5) H 01/22/21 Unknown Lymph # (Auto) 1.45 K/uL (1.2-3.4) 01/22/21 Unknown [place] # (Auto) 0.31 K/uL (0.11-0.59) 01/22/21 Unknown Eos # (Auto) 0.12 K/uL (0-0.5) 01/22/21 Unknown Baso # (Auto) 0.02 K/uL (0-0.2) 01/22/21 Unknown Immature Gran # (Auto) 0.03 K/uL (0.00-0.02) H 01/22/21 Unknown APTT 31.5 Seconds (21.0-31.0) H 01/22/21 Unknown PTT Ratio 1.2 01/22/21 Unknown POC Sodium 136 mmol/L (135-144) 01/22/21 18:52 Sodium 133 mmol/L (136-145) L 01/22/21 Unknown POC Potassium 3.9 mmol/L (3.3-5.0) 01/22/21 18:52 Potassium 3.9 mmol/L (3.5-5.1) 01/22/21 Unknown POC Chloride 99 mmol/L (101-112) L 01/22/21 18:52 Chloride 101 mmol/L (98-107) 01/22/21 Unknown Carbon Dioxide 24 mmol/L (21-32) 01/22/21 Unknown POC Total CO2 23 mmol/L (24-31) L 01/22/21 18:52 Anion Gap 8.0 (3-11) 01/22/21 Unknown POC Anion Gap 18.0 mmol/L (16-25) 01/22/21 18:52 POC BUN 50 mg/dl (7-18) H 01/22/21 18:52 BUN 50 mg/dl (7-18) H 01/22/21 Unknown Creatinine 2.38 mg/dl (0.6-1.2) H 01/22/21 Unknown POC Creatinine 2.6 mg/dl (0.6-1.3) H 01/22/21 18:52 Est Cr Clr Drug Dosing 20.0 ml/min 01/22/21 Unknown Est GFR ( Amer) 21.1 ml/min 01/22/21 Unknown Est GFR (Non-Af Amer) 18.2 ml/min 01/22/21 Unknown BUN/Creatinine Ratio 21.0 (10-20) H 01/22/21 Unknown Glucose 124 mg/dl (70-99) H 01/22/21 Unknown POC Glucose (other) 127 mg/dl (70-99) H 01/22/21 18:52 Calcium 8.9 mg/dl (8.5-10.1) 01/22/21 Unknown POC Ioniz Calcium Ghassan 1.15 mmol/l (1.12-1.32) 01/22/21 18:52 Total Bilirubin 1.2 mg/dl (0.2-1) H 01/22/21 Unknown AST 26 U/L (15-37) 01/22/21 Unknown ALT 36 U/L (12-78) 01/22/21 Unknown Alkaline Phosphatase 92 U/L (45-117) 01/22/21 Unknown Troponin I < 0.015 ng/ml (0-0.045) 01/22/21 Unknown Total Protein 7.5 gm/dl (6.4-8.2) 01/22/21 Unknown Albumin 4.0 gm/dl (3.4-5.0) 01/22/21 Unknown Globulin 3.5 gm/dl (2.5-4.0) 01/22/21 Unknown Albumin/Globulin Ratio 1.2 (0.9-2) 01/22/21 Unknown Lipase 171 U/L (73-393) 01/22/21 Unknown Urine Color Yellow 01/22/21 22:21 Urine Appearance Clear (Clear) 01/22/21 22:21 Urine pH 5.5 (4.5-7.5) 01/22/21 22:21 Ur Specific [place] 1.009 (1.000-1.030) 01/22/21 22:21 Urine Protein Negative (Negative) 01/22/21 22:21 Urine Glucose (UA) Negative (Negative) 01/22/21 22:21 Urine Ketones Negative (Negative) 01/22/21 22:21 Urine Blood Negative (Negative) 01/22/21 22:21 Urine Nitrite Negative (Negative) 01/22/21 22:21 Urine Bilirubin Negative (Negative) 01/22/21 22:21 Urine Urobilinogen Negative (Negative) 01/22/21 22:21 Ur Leukocyte Esterase Negative (Negative) 01/22/21 22:21 COVID-19 Eval Order Covid19 at [facility] 01/23/21 00:09 SARS-CoV-2 (PCR) NEGATIVE (Negative) 01/23/21 00:09 Impressions Chest X-Ray 01/22/21 18:28 SINGLE VIEW CHEST CLINICAL HISTORY: Atypical chest pain. FINDINGS: An AP, portable, upright chest radiograph is compared to study dated 12/12/2020. The examination is mildly degraded by portable technique and patient rotation. A multilead cardiac AICD is unchanged in position and partially obscures the left lower chest. The heart is mildly enlarged noting atherosclerotic calcification of the thoracic aorta. The pulmonary vasculature is noncongested. Scarring/atelectasis is noted at the lung bases. There are scattered calcified granulomas. No airspace consolidation or large pleural effusion is identified. No pneumothorax is seen. The skeletal structures are osteopenic. The bony thorax is grossly intact. Degenerative change is seen in the shoulders. IMPRESSION: 1. Cardiomegaly and AICD with no radiographic evidence of congestive failure. 2. No airspace consolidation or large pleural effusion is identified. ACT 112: Negative or not required by law. Electronically signed by: Carlyle Lovelace M.D. 01/22/2021 7:50 PM Abdomen/Pelvis CT 01/22/21 19:17 CT SCAN OF THE ABDOMEN AND PELVIS WITHOUT IV CONTRAST CLINICAL HISTORY: Generalized abdominal pain. COMPARISON STUDY: Abdominal CT dated 12/12/2020 TECHNIQUE: CT scan of the abdomen and pelvis is performed from the lung bases to the proximal femora. Images are reviewed in the axial, sagittal, and coronal planes. IV contrast was not administered for this examination. Note that the examination was performed in significantly suboptimal fashion without oral and IV contrast. A dose lowering technique was utilized adhering to the principles of ALARA. CT DOSE: 858.88 mGy.cm FINDINGS: Lung bases: The heart is normal in size and without pericardial effusion. Pacemaker leads are noted. The lung bases are clear noting bibasilar scarring/atelectasis. Liver: The unenhanced liver is normal in size, contour, and attenuation. There is no intrahepatic biliary ductal dilatation. Pneumobilia is noted. Gallbladder: Surgically absent noting clips in the gallbladder fossa. Spleen: Normal in size and attenuation. Pancreas: The unenhanced pancreas is atrophic and grossly unremarkable. Adrenal glands: Unremarkable. Kidneys: The unenhanced kidneys are atrophic and without hydronephrosis. There are punctate nonobstructing right renal calculi. No ureteral stone is seen. Simple and complex/hyperdense renal cysts are unchanged and measure up to 3.7 cm in diameter. Abdominal vasculature: The abdominal aorta is normal in course and caliber noting advanced atherosclerotic calcification. Bowel: The gastric wall appears thickened. There is advanced colonic diverticulosis without CT evidence of acute diverticulitis. No bowel obstruction is seen. There are small duodenal diverticula. The appendix is well-visualized and normal. Peritoneum: There is no intraperitoneal free air or abdominal ascites. There is a fat-containing umbilical hernia. Lymphadenopathy: None. Pelvic viscera: The bladder, uterus, and adnexa are normal as visualized. Skeletal structures: The skeletal structures are osteopenic. There is advanced lumbosacral spondylosis. No lytic or blastic lesions are seen. Soft tissues: Question a decubitus ulcer overlying the right ischial tuberosity with surrounding infiltration. IMPRESSION: 1. Significantly suboptimal examination without oral and IV contrast 2. The gastric wall appears thickened. This is not well assessed by CT, and could potentially be seen in the setting of gastritis. Clinical correlation will be required. Endoscopy could be considered for further assessment. 3. Question a decubitus ulcer overlying the right ischial tuberosity. This could also represent a prominent skinfold and correlation with direct visualization will required. 4. Advanced colonic diverticulosis without CT evidence of acute diverticulitis. 5. Additional findings as above. ACT 112: Negative or not required by law. Electronically signed by: Carlyle Lovelace M.D. 01/22/2021 9:12 PM ECG Additional Comments: EKG with bigeminy pattern, paced beats followed by intrinsic beat, no acute ischemic changes PG Care Time/CCT Total # of Minutes Spent Total Time Spent with Patient: Total time spent is greater than 50% in coor dination of care (as documented) at patient's floor/unit and/or counseling patient: Coding Level of Care Code INT OBSERVATION CARE 50M LVL 2 Diagnoses Vomiting and diarrhea R11.10; R19.7 Ventricular bigeminy I49.8 Chronic systolic congestive heart failure I50.22 Diabetes mellitus E11.9 Dyslipidemia E78.5 Hypertension I10 Paroxysmal atrial fibrillation I48.0 Rheumatoid arthritis M06.9 Secondary hyperparathyroidism N25.81 GERD (gastroesophageal reflux disease) K21.9
[2021-01-23] MEDS ORDERED: GLUCAGON FOR INJ 1 MG VIAL SQ PRN (04:39)
[2021-01-23] MEDS ORDERED: DEXTROSE 50% 50 ML SYRINGE IV PRN (04:39)
[2021-01-23] MEDS ORDERED: GLUCOSE 10 TABS/TUBE PO PRN (04:39)
[2021-01-23] MEDS ORDERED: GLUCOSE 40% GEL 15 GM TUBE PO PRN (04:39)
[2021-01-23 06:01] LABS: Basophils # (auto) 0.01 K/uL (0-0.2); Basophils % (auto) 0.1 %; Eosinophils # (auto) 0.23 K/uL (0-0.5); Eosinophils % (auto) 3.3 %; Hematocrit (blood only) 38.7 % (37-47); Hemoglobin 12.6 g/dL (12.0-16.0); Immature Granulocytes # (auto) 0.01 K/uL (0.00-0.02); Immature Granulocytes % (auto) 0.1 %; Lymphocytes # (auto) 1.35 K/uL (1.2-3.4); Lymphocytes % (auto) 19.2 %; Mean Corpuscular Hemoglobin 31.3 pg (25-34); Mean Corpuscular Hgb Conc 32.6 g/dL (32-36); Mean Platelet Volume 9.5 fL (7.4-10.4); Monocytes # (auto) 0.37 K/uL (0.11-0.59); Monocytes % (auto) 5.3 %; Neutrophils # (auto) 5.07 K/uL (1.4-6.5); Platelet Count 178 K/uL (130-400); RDW Coefficient of Variation 15.3 % (11.5-14.5); RDW Standard Deviation 52.3 fL (36.4-46.3); Red Blood Count 4.03 M/uL (4.2-5.4); White Blood Count 7.04 K/uL (4.8-10.8)
[2021-01-23 06:06] LABS: INR 2.3 (0.9-1.1)
[2021-01-23] MEDS ORDERED: CYCLOBENZAPRINE HCL 10 MG TAB PO PRN (06:22)
[2021-01-23 06:23] LABS: BUN Creatinine Ratio 22.7 (10-20); Calcium 8.3 mg/dl (8.5-10.1); Creatinine Clr Calc Pharmacy 23.2 ml/min; Est GFR (African American) 24.6 ml/min; Est GFR (Non-African American) 21.2 ml/min; Magnesium 1.6 mg/dl (1.8-2.4); Potassium 3.4 mmol/L (3.5-5.1)
[2021-01-23 06:24] LABS: Phosphorus 2.5 mg/dl (2.5-4.9)
[2021-01-23 07:36] LABS: Estimated Average Glucose 157 mg/dl; Hemoglobin A1C 7.1 % (4.5-5.6)
[2021-01-23] MEDS: CALCITRIOL 0.25 MCG CAPSULE PO SCH (08:50)
[2021-01-23] MEDS: SPIRONOLACTONE 25 MG TAB PO SCH (08:50)
[2021-01-23] MEDS: SIMVASTATIN 20 MG TAB PO SCH (08:51)
[2021-01-23] MEDS: FOLIC ACID 1 MG TAB PO SCH (08:51)
[2021-01-23] MEDS: INSULIN ASPART 100 UNITS/ML 3 ML PEN SC SCH ×4 (08:51→22:00)
[2021-01-23] MEDS: METOPROLOL SUCC 25MG EXT REL TAB PO SCH ×2 (08:51→21:55)
[2021-01-23] MEDS ORDERED: INSULIN GLARGINE SOLOSTAR 100 UNITS/ML 3 ML PEN SC ONE (09:00)
[2021-01-23] MEDS ORDERED: PANTOprazole 40 MG in SYRINGE 0 ML IV SCH (11:00)
[2021-01-23] MEDS: MAGNESIUM SULFATE / D5W 1 GM/100 ML BAG IV SCH ×2 (11:15→13:18)
--- NOTE | 2021-01-23 13:28 | Electrocardiogram Report ---
Test Reason : Blood Pressure : / mmHG Vent. Rate : 090 BPM Atrial Rate : 090 BPM P-R Int : 080 ms QRS Dur : 148 ms QT Int : 410 ms P-R-T Axes : 089 082 261 degrees QTc Int : 501 ms Sinus rhythm with frequent ventricular-paced complexes and Premature supraventricular complexes in a pattern of bigeminy Abnormal ECG When compared with ECG of 12-DEC-2020 16:25, Premature ventricular complexes are no longer Present Premature supraventricular complexes are now Present Vent. rate has increased BY 4 BPM Confirmed by Palomo Chacon ([id number]) on 01/23/2021 1:28:13 PM Referred By: REFERRED SELF Confirmed By:Sam Chacon
--- NOTE | 2021-01-23 13:35 | Cardiology Consultation ---
Date of Consultation January 23, 2021 Assessment & Plan (1) Vomiting and diarrhea: (2) Frequent PVCs: (3) CARRILLO (dyspnea on exertion): (4) Biventricular ICD (implantable cardioverter-defibrillator) in place: (5) Non-ischemic cardiomyopathy: (6) Paroxysmal atrial fibrillation: (7) Anticoagulant long-term use: (8) CKD (chronic kidney disease): 1. Nausea, vomiting, diarrhea: When I saw her in the office 3 days ago she was having diarrhea and gas, I started amiodarone to control her arrhythmia and she has now developed nausea and vomiting as well. The nausea and vomiting could be due to amiodarone, it certainly does have those side effects, however her GI symptoms were present when I started it. Nevertheless I think would be prudent to discontinue it to see whether her symptoms resolved. Since she was only on it for several days I do not think it would be long before her symptoms resolved. If they do I would propose giving IV amiodarone (even if is just a loading dose) to see whether it suppresses the arrhythmia. If it does we can restart amiodarone at a lower dose since the GI side effects are usually dose related. 2. Frequent PVCs: She has developed very frequent premature ventricular beats, although her ejection fraction does not seem to have suffered from there presents she does not feel well and I think a lot of it has to do with the frequency of these beats. We need to suppress them. I still would like to use amiodarone, if that does not work we can consider ablation. 3. Dyspnea on exertion and fatigue: I believe this is due to low cardiac output from an effective low heart rate due to very frequent premature ventricular beats. We can see if she improves with control of her PVCs. 4. Biventricular ICD: Clinically it is working well, we will evaluate it here. 5. Nonischemic cardiomyopathy: Her left ventricular ejection fraction has recovered. We should continue her heart failure medications which she was tolerating before starting amiodarone, although conceivably this is part of the cause of her fatigue but I do not want to adjust them at this point. 6. Paroxysmal atrial fibrillation: This has been detected by the device, she should remain on anticoagulation. 7. Anticoagulation: I would continue her current regimen although we could switch to one of the newer agents. 8. Chronic kidney disease: She has longstanding kidney disease however her creatinine is little bit worse recently, it will be interesting to see whether improvement in her PVC burden will increase renal perfusion and decrease her creatinine by increasing her cardiac output. History of Present Illness Reason for Consultation: Possible amiodarone toxicity Attending Physician: Eunice Harris MD History of Present Illness This is an 85-year-old woman with a history of steroid-dependent rheumatoid arthritis, diabetes. She also has a history of sick sinus syndrome and a dual-ch seth pacemaker implanted on 11/19/2006, although she is in complete heart block and pacer dependent so she may have had implanted for that indication as well. Her device reached [facility] and was replaced on 04/26/2014. She had severe left ventricular dysfunction with an ejection fraction of 20-25% by echocardiography identified on 09/12/2015, she did undergo cardiac catheterization on 06/04/2015 where her coronary arteries were normal. She has a nonischemic cardiomyopathy, this is likely due to right ventricular pacing as she is pacer dependent. She underwent upgrade to a biventricular ICD on 05/2016. Her left degree ejection fraction had normalized as of April 2016. She was in atrial fibrillation following device implantation, she therefore underwent cardioversion in January 2016. Echocardiography on July 23, 2017 showed low normal left ventricular function with ejection fraction of 50 to 55%. She continued to have difficulty with exertion and a nuclear stress test was done on November 19, 2017 which was negative for ischemia and the ejection fraction was calculated at 67%. On November 20, 2020 her left ventricular ejection fraction was 55 to 60%. We have identified frequent premature ventricular beats both by pacemaker monitoring and electrocardiography. As far back as 2017 she was observed to have frequent premature ventricular beats identified by her ICD, this was interfering somewhat with biventricular pacing but with normalization of her ejection fraction we did not pursue further treatment. An electrocardiogram done December 12, 2020 shows an AV paced rhythm with ventricular bigeminy, her ventricular premature beats have been inferiorly directed and leftward axis possibly representing the right ventricular outflow tract. When I saw her in the office 3 days ago she had not been feeling well recently. She had been having weakness and tiredness for at least several months, possibly longer, she also had significant GI symptoms including diarrhea and gas. She also had dyspnea on exertion but she has been careful with diet including fluid and salt, she has been weighing herself regularly and her weight has been stable. She does check her blood pressure and pulse several times a day and notes recently that her blood pressure was a little bit on the low side or normal and her pulse is usually in the mid 40s although her device is programmed to 60. In the office she was having ventricular bigeminy lowering her effective heart rate into the 40s. I suspected a lot of her tiredness and fatigue was due to this slow heart rate and a decreased cardiac output. She was already on a reasonable dose of beta-blockade so I added amiodarone to her regimen, 200 mg 3 times daily since even at that dose it will take some time to reach therapeutic effect. She was only on this for several days before developing nausea and vomiting and she presented to the emergency room with these symptoms in the afternoon of January 22, 2021. At the time of my evaluation in the emergency room she told me she was feeling a little bit better until she ate breakfast and was having some nausea but had not vomited as yet. She has no lightheadedness or dizziness and no chest discomfort. Initial evaluation in the emergency room demonstrated very frequent premature ventricular beats, often in a bigeminal pattern, and her laboratory studies were notable for an elevated white count (which has now normalized) and a negative troponin. Allergies Allergy/AdvReac Type Severity Reaction Status Date / Time aspirin AdvReac Unknown history of Verified 01/22/21 18:52 ulcers nortriptyline AdvReac Unknown DOESN'T Verified 01/22/21 18:52 REMEMBER Home Medications Medication Instructions Recorded Confirmed Type tocilizumab 80 mg/4 mL (20 mg/mL) 0 mg IV Q28D ml 03/03/18 01/22/21 History intravenous solution ascorbate calcium-bioflavonoid 1 tab PO QAM 11/11/18 01/22/21 History 1,000 mg-200 mg tablet (Annamaria-C with Bioflavonoids) calcium polycarbophil 625 mg 650 mg PO QAM PRN 02/10/19 01/22/21 History tablet (Fiber (calcium polycarbophil)) methotrexate sodium 2.5 mg tablet 5 mg PO SA tab 03/30/19 01/22/21 History folic acid 1 mg tablet 1 mg PO DAILY #90 tab 07/14/19 01/22/21 Rx ipratropium bromide 21 mcg (0.03 2 sprays INTNAS BID PRN #30 ml 09/29/19 01/22/21 Rx %) nasal spray meclizine 25 mg tablet 25 mg PO TID PRN #30 tab 12/20/19 01/22/21 Rx blood-glucose meter (OneTouch #1 ea 12/21/19 01/08/21 Rx Ultra2 Meter) lorazepam 0.5 mg tablet 0.5 mg PO BID PRN #60 tab 03/12/20 01/22/21 Rx cholecalciferol (vitamin D3) 50 2,000 unit PO QAM #90 cap 03/25/20 01/22/21 Rx mcg (2,000 unit) capsule (Vitamin D3) blood sugar diagnostic (OneTouch #100 ea 04/17/20 01/08/21 Rx Ultra Blue Test Strip) calcitriol 0.25 mcg capsule 0.25 mcg PO DAILY #90 cap 05/16/20 01/22/21 Rx insulin lispro 100 unit/mL See Rx Instructions SQ AC #15 ml 05/16/20 01/22/21 Rx subcutaneous pen (Humalog KwikPen (U-100) Insulin) spironolactone 50 mg tablet 50 mg PO QAM #90 tab 06/04/20 01/22/21 Rx pen needle, diabetic 32 gauge x #100 ea 08/02/20 01/08/21 Rx 1/4" (BD Ultra-Fine Micro Pen Needle) cyclobenzaprine 10 mg tablet 10 mg PO TID PRN #30 tab 08/13/20 01/22/21 Rx montelukast 10 mg tablet 10 mg PO DAILY #90 tab 08/21/20 01/22/21 Rx metoprolol succinate 50 mg 75 mg PO BID #270 tab 08/23/20 01/22/21 Rx tablet,extended release 24 hr furosemide 40 mg tablet 40 mg PO .COMPLEX #135 tab 10/04/20 01/22/21 Rx simvastatin 20 mg tablet 20 mg PO DAILY #90 tab 10/04/20 01/22/21 Rx insulin glargine U-300 conc 300 22 unit SUBCUT DAILY #4.5 ml 11/26/20 01/22/21 Rx unit/mL (1.5 mL) subcutaneous pen (Touxochitlo SoloStar U-300 Insulin) ondansetron 4 mg disintegrating 4 mg PO Q6H PRN #14 tab 12/12/20 01/22/21 Rx tablet omeprazole 40 mg capsule,delayed 40 mg PO DAILY #30 cap 12/16/20 01/22/21 Rx release warfarin 4 mg tablet (Jantoven) See Rx Instructions PO UD #75 tab 01/03/21 01/22/21 Rx amiodarone 200 mg tablet 200 mg PO TID #90 tab 01/20/21 01/22/21 Rx diclofenac sodium 1 % topical gel 2 g TOPICAL QID PRN 01/22/21 01/22/21 History Patient History Medical History Acquired claw toe of right foot Anxiety Asymmetrical right sensorineural hearing loss Biventricular ICD (implantable cardioverter-defibrillator) in place (2015) Chronic systolic congestive heart failure Degenerative joint disease (DJD) of lumbar spine Depression Diabetes mellitus with neuropathy Diabetic peripheral neuropathy Dyslipidemia Foot deformity GERD without esophagitis Hallux abducto valgus, bilateral History of basal cell carcinoma Hypertension Non-ischemic cardiomyopathy Normal coronary arteries (2014) PAC (premature atrial contraction) Rheumatoid arthritis Secondary hyperparathyroidism Sensorineural hearing loss (SNHL) of both ears SNHL (sensorineural hearing loss) Stage III chronic kidney disease Third degree AV block Surgical History S/P cataract extraction and insertion of intraocular lens S/P cholecystectomy S/P total knee arthroplasty S/P tubal ligation Family History Father Heart disease Mother Diabetes Heart disease Myocardial infarction Grandfather (Maternal) Prostate cancer Other Family history non-contributory Denies family history of Ovarian cancer Breast cancer Colorectal cancer Social History Smoking Status: Never smoker Second Hand Exposure: Yes; Do You Dip or Chew Tobacco: No; Hx Alcohol Use: No Hx Substance Use: No Preferred Language: Ivorian Communication Ability: Effective Visual Impairment: No Limitations Hearing Ability: Use of Hearing Aid Beliefs That Will Affect Care: None marital status: Current Living Situation: Spouse current occupational status: retired Other Information That Helps Us Care for You: No Feels Safe at Home: Yes Safety Concerns: Feels Safe At This Time Childhood Exposure to Second-Hand Smoke: Yes Dental Care, Regularly: Yes Physical Activity Frequency: Does not Exercise Seatbelt Use: always Sunscreen Use: Yes Assistive Devices: Hearing Aid - Bilateral Physical Exam Physical Exam: Constitutional: Alert, cooperative and in no distress. HEENT: Unremarkable Neck: No jugular venous distention, carotid pulses are normal and equal bilaterally without bruits. Pulmonary: Clear to auscultation bilaterally. Cardiac: Regular rhythm with a bigeminal rhythm, no murmur, gallop or rub. Abdomen: Soft, nontender with normal bowel sounds. Extremities: +1 bilateral pedal edema. Distal pulses intact. Neurologic: No focal findings. Gait is steady but slow. Skin: No rash, ecchymoses or petechiae. The ICD site is well-healed without erythema, swelling or tenderness. Results & Data ([facility]) Vital Signs (Past 12 Hours) Vital Signs Temp Pulse Pulse Resp BP BP Pulse Ox 01/23/21 11:35 81 18 117/69 95 01/23/21 08:29 36.9 C 91 H 18 109/57 L 93 01/23/21 04:41 36.8 C 87 15 123/66 96 01/23/21 04:00 79 12 132/61 99 01/23/21 03:30 78 16 114/57 L 98 01/23/21 03:01 75 14 123/55 L 99 01/23/21 02:30 79 12 107/43 L 98 01/23/21 02:00 95 H 16 110/52 L 87 L Laboratory Results Cardiac Enzymes 01/22/21 Range/Units Unknown AST 26 (15-37) U/L Troponin I < 0.015 (0-0.045) ng/ml Coagulation 01/22/21 01/23/21 Range/Units Unknown 05:36 PT 22.0 H (9.0-12.0) Seconds APTT 31.5 H (21.0-31.0) Seconds CBC 01/22/21 01/23/21 Range/Units Unknown 05:36 WBC 12.19 H 7.04 (4.8-10.8) K/uL RBC 4.33 4.03 L (4.2-5.4) M/uL Hgb 13.8 12.6 (12.0-16.0) g/dL Hct 41.2 38.7 (37-47) % Plt Count 211 178 (130-400) K/uL Neut # (Auto) 10.26 H 5.07 (1.4-6.5) K/uL Lymph # (Auto) 1.45 1.35 (1.2-3.4) K/uL [place] # (Auto) 0.31 0.37 (0.11-0.59) K/uL Eos # (Auto) 0.12 0.23 (0-0.5) K/uL Baso # (Auto) 0.02 0.01 (0-0.2) K/uL Comprehensive Metabolic Panel 01/22/21 01/23/21 Range/Units Unknown 05:36 Sodium 133 L 139 (136-145) mmol/L Potassium 3.9 3.4 L (3.5-5.1) mmol/L Chloride 101 108 H (98-107) mmol/L Carbon Dioxide 24 26 (21-32) mmol/L BUN 50 H 48 H (7-18) mg/dl Creatinine 2.38 H 2.10 H (0.6-1.2) mg/dl Glucose 124 H 83 (70-99) mg/dl Calcium 8.9 8.3 L (8.5-10.1) mg/dl AST 26 (15-37) U/L ALT 36 (12-78) U/L Alkaline Phosphatase 92 (45-117) U/L Total Protein 7.5 (6.4-8.2) gm/dl Albumin 4.0 (3.4-5.0) gm/dl Intake and Output 01/22/21 01/23/21 01/23/21 22:59 06:59 14:59 Intake Total 1000 / 1000 0 / 1000 100 / 100 Output Total 0 / 0 Balance 1000 / 1000 0 / 1000 100 / 100 Intake: IV 1000 / 1000 100 / 100 Magnesium Sulfate / D5w 1 gm In 100 / 100 100 ml @ 50 mls/hr IV Q2H [facility] Rx#:[id number] Sodium Chloride 0.9% 1000ML 1, 1000 / 1000 000 ml @ 999 mls/hr IV .Q1H1M ONE Rx#:[id number] Oral 0 / 0 Output: Urine 0 / 0 Other: Weight 88.3 kg 92.4 kg Weight Measurement Method [facility] Diagnostic Findings Monitoring: Frequent unifocal PVCs, bigeminal frequently Electrocardiogram on presentation: AV sequential pacing with ventricular bigeminy PG Care Time/CCT Total # of Minutes Spent Total Time Spent with Patient: Total time spent is greater than 50% in coordination of care (as documented) at patient's floor/unit and/or counseling patient: Coding Level of Care Code 89546 Initial Inpt Care Lvl 3 Diagnoses Vomiting and diarrhea R11.10; R19.7 Biventricular ICD (implantable cardioverter-defibrillator) in place Z95.810 Frequent PVCs I49.3 CARRILLO (dyspnea on exertion) R06.00 Non-ischemic cardiomyopathy I42.8 Paroxysmal atrial fibrillation I48.0 Anticoagulant long-term use Z79.01 CKD (chronic kidney disease) N18.9
[2021-01-23] MEDS: WARFARIN SOD 4 MG TAB PO SCH (17:09)
--- NOTE | 2021-01-23 18:16 | History & Physical Bridge Note ---
Date of Service January 23, 2021 History & Physical Bridge Note I have examined the patient, reviewed the History & Physical and in the interval since the performance of the History & Physical I have noted the following changes of clinical significance: Pt feelin gmuch better already. Ate 3 meals today, no further nausea. Does get indigestion at times despite taking daily Prilosec at home. No CP or SOB. Does not wear O2 at home. Vitals reviewed NAD< AAOx3 RRR no mgr, +ectopy CTAB no wcr Abd +BS soft NT ND Ext no edema 85 yo female here with N/V/D with taking amiodarone. With gastritis on CT abd/pel. -improved after stopping amiodarone and with IV PPI, nausea resolved, diarrhea resolved -increase PPI IV to bid Appreciate Cardiology management of ventricular ectopy-possible start IV amiodarone tomorrow, will await further Cardiology input check CBC< BMP, mag in AM
[2021-01-23] MEDS: PANTOprazole 40 MG in SYRINGE 0 ML IV SCH (21:55)
[2021-01-23] MEDS: LORazepam 0.5 MG TAB PO PRN (22:56)
[2021-01-23] MEDS: CALCIUM CARBONATE 500 MG CHEWABLE TAB PO PRN (23:38)
[2021-01-23] MEDS: ONDANSETRON INJ 2 MG/ML 2 ML VIAL IV PRN (23:39)
[2021-01-24] MEDS ORDERED: LOPERAMIDE HCL 2 MG CAP PO STA (06:01)
[2021-01-24] MEDS: CARBOHYDRATES FOR HYPOGLYCEMIA PO PRN (07:52)
[2021-01-24 08:40] LABS: Hematocrit (blood only) 39.9 % (37-47); Hemoglobin 13.1 g/dL (12.0-16.0); Mean Corpuscular Hemoglobin 31.3 pg (25-34); Mean Corpuscular Hgb Conc 32.8 g/dL (32-36); Mean Corpuscular Volume 95.5 fL (80-100); Mean Platelet Volume 9.8 fL (7.4-10.4); Platelet Count 177 K/uL (130-400); RDW Coefficient of Variation 15.4 % (11.5-14.5); RDW Standard Deviation 52.5 fL (36.4-46.3); Red Blood Count 4.18 M/uL (4.2-5.4); White Blood Count 8.73 K/uL (4.8-10.8)
[2021-01-24] MEDS: INSULIN ASPART 100 UNITS/ML 3 ML PEN SC SCH ×4 (08:46→20:19)
[2021-01-24 08:49] LABS: INR 2.6 (0.9-1.1); Prothrombin Time 24.7 Seconds (9.0-12.0)
[2021-01-24] MEDS: PANTOprazole 40 MG in SYRINGE 0 ML IV SCH ×2 (08:49→20:19)
[2021-01-24] MEDS: METOPROLOL SUCC 25MG EXT REL TAB PO SCH ×2 (08:49→20:19)
[2021-01-24] MEDS ORDERED: INSULIN GLARGINE SOLOSTAR 100 UNITS/ML 3 ML PEN SC SCH ×2 (09:00)
[2021-01-24 09:02] LABS: Anisocytosis Present; Basophils # (auto) 0.02 K/uL (0-0.2); Basophils % (auto) 0.2 %; Eosinophils # (auto) 0.25 K/uL (0-0.5); Eosinophils % (auto) 2.9 %; Immature Granulocytes # (auto) 0.02 K/uL (0.00-0.02); Immature Granulocytes % (auto) 0.2 %; Lymphocytes # (auto) 1.39 K/uL (1.2-3.4); Lymphocytes % (auto) 15.9 %; Monocytes # (auto) 0.93 K/uL (0.11-0.59); Monocytes % (auto) 10.7 %; Neutrophils # (auto) 6.12 K/uL (1.4-6.5); Neutrophils % (auto) 70.1 %
[2021-01-24 09:18] LABS: BUN Creatinine Ratio 21.1 (10-20); Calcium 8.6 mg/dl (8.5-10.1); Est GFR (Non-African American) 18.2 ml/min; Magnesium 2.5 mg/dl (1.8-2.4)
--- NOTE | 2021-01-24 09:30 | Cardiology Progress Note ---
Date of Service January 24, 2021 Assessment & Plan (1) Vomiting and diarrhea: (2) Frequent PVCs: Plan: 1. Vomiting and diarrhea: This preceded starting amiodarone, initially she was complaining of diarrhea and gas although no she reports having nausea and vomiting preceding amiodarone therapy. The symptoms have not completely resolved although they are improved, there seems to be something GI going on that preceded the amiodarone therapy although the amiodarone aggravated it. At this point I will hold off on the intravenous amiodarone until her GI situation is sorted out but I think we should try it at that point. I would use a standard load and drip as an experiment, she would probably only need to stay in the hospital day to see whether it works. 2. Frequent PVCs: I am concerned that her PVCs are affecting her cardiac output which is probably causing a lot of her exertional symptoms, it may be affecting her kidney perfusion and it may not be good for her left ventricular function over the long run. I think we are going to need to address them, as noted above I would try IV amiodarone if we can sort out her GI situation. Other than that ablation is a reasonable option since it seems likely that these come from the right ventricular outflow tract. Admission and Anticipated Discharge Date Admission Date: January 23, 2021 Subjective She is still struggling with nausea, especially after she eats, and having diarrhea. Perhaps it is improved somewhat but not a lot. Physical Exam Physical Exam: Constitutional: Alert, cooperative and in no distress. HEENT: Unremarkable Neck: No jugular venous distention, carotid pulses are normal and equal bilaterally without bruits. Pulmonary: Clear to auscultation bilaterally. Cardiac: Regular rhythm with a bigeminal rhythm, no murmur, gallop or rub. Abdomen: Soft, nontender with normal bowel sounds. Extremities: +1 bilateral pedal edema. Distal pulses intact. Neurologic: No focal findings. Gait is steady but slow. Skin: No rash, ecchymoses or petechiae. The ICD site is well-healed without erythema, swelling or tenderness. Results & Data ([facility]) Vital Signs (Past 12 Hours) Vital Signs Temp Pulse Pulse Resp BP BP Pulse Ox 01/24/21 08:00 36.4 C L 85 20 105/58 L 90 01/24/21 07:33 77 01/24/21 02:52 36.6 C 80 18 103/62 91 01/23/21 22:55 36.3 C L 80 18 113/67 95 Laboratory Results Coagulation 01/24/21 Range/Units 08:20 PT 24.7 H (9.0-12.0) Seconds CBC 01/24/21 Range/Units 08:20 WBC 8.73 (4.8-10.8) K/uL RBC 4.18 L (4.2-5.4) M/uL Hgb 13.1 (12.0-16.0) g/dL Hct 39.9 (37-47) % Plt Count 177 (130-400) K/uL Neut # (Auto) 6.12 (1.4-6.5) K/uL Lymph # (Auto) 1.39 (1.2-3.4) K/uL [place] # (Auto) 0.93 H (0.11-0.59) K/uL Eos # (Auto) 0.25 (0-0.5) K/uL Baso # (Auto) 0.02 (0-0.2) K/uL Comprehensive Metabolic Panel 01/24/21 Range/Units 08:20 Sodium 136 (136-145) mmol/L Potassium 4.0 D (3.5-5.1) mmol/L Chloride 109 H (98-107) mmol/L Carbon Dioxide 21 (21-32) mmol/L BUN 51 H (7-18) mg/dl Creatinine 2.39 H (0.6-1.2) mg/dl Glucose 74 (70-99) mg/dl Calcium 8.6 (8.5-10.1) mg/dl Intake and Output 01/23/21 01/24/21 01/24/21 22:59 06:59 14:59 Intake Total 400 / 1033 450 / 1033 Output Total 475 / 475 Balance -75 / 558 450 / 558 Intake: Oral 400 / 850 450 / 850 Output: Urine 475 / 475 Other: # Unmeasured Voids 2 Weight 88.6 kg Diagnostic Findings Telemetry: When she first came in her PVC count appeared to be slightly down based on the trend although she still had very frequent PVCs, now it has increased somewhat possibly due to amiodarone washout which can be fairly quick when it is first started. Overall heart rate good excluding the PVCs. PG Care Time/CCT Total # of Minutes Spent Total Time Spent with Patient: Total time spent is greater than 50% in coordination of care (as documented) at patient's floor/unit and/or counseling patient: Coding Level of Care Code 25888 Subseq Hosp Care Lvl 3 Diagnoses Frequent PVCs I49.3 Vomiting and diarrhea R11.10; R19.7
[2021-01-24] MEDS: CALCITRIOL 0.25 MCG CAPSULE PO SCH (09:34)
[2021-01-24] MEDS: SPIRONOLACTONE 25 MG TAB PO SCH (09:34)
[2021-01-24] MEDS: SIMVASTATIN 20 MG TAB PO SCH (09:35)
[2021-01-24] MEDS: FOLIC ACID 1 MG TAB PO SCH (09:35)
[2021-01-24] MEDS: CALCIUM CARBONATE 500 MG CHEWABLE TAB PO PRN ×2 (11:37→17:19)
[2021-01-24] MEDS ORDERED: WARFARIN SOD 2 MG TAB PO SCH (16:00)
[2021-01-24] MEDS ORDERED: LOPERAMIDE HCL 2 MG CAP PO PRN (17:38)
--- NOTE | 2021-01-24 18:03 | Hospitalist Progress Note ---
Date of Service January 24, 2021 Assessment & Plan (1) Vomiting and diarrhea: Plan: Etiology uncertain. She has had nausea/vomiting, and diarrhea for several months, but much worse since starting amiodarone a few days prior to admission. She is afebrile, HD stable, non-toxic in appearance. She does have a neutrophil predominant leukocytosis possibly reactive. Liver studies, lipase and electrolytes largely unremarkable. CT scan with possible gastritis. No recent antibiotic use. -Nausea had been somewhat improved and she is able to eat, but will continue with antiemetics as needed -Treating gastritis with IV PPI twice daily -Continue Zofran PRN -Check C. difficile-negative -Check stool culture, ova and parasites -Start Imodium as needed -Consider GI consultation if not improving -Mildly dehydrated with slight rise in creatinine today Avoid IV fluids due to heart failure -We will wait to see if improves with metabolism of amiodarone (2) Ventricular bigeminy: Plan: Patient with BiV AICD in place, follows with Dr. Lees. Ventricular bigeminy possibly leading to poor perfusion state as well as symptoms of fatigue/dyspnea/SOB. Is on Metoprolol 75mg po BID. Was tried on Amiodarone but unable to tolerate due to GI side effects. -Telemetry monitoring shows frequent ventricular bigeminy -Monitor electrolytes and replete as needed -Continue Metoprolol 75mg po BID -Cardiology consultation appreciated re: additional rhythm control agents vs pacer adjustment-awaiting GI symptoms to improve but may need IV amiodarone (3) Chronic systolic congestive heart failure: Plan: Chronic. Volume status is mildly dry due to diarrhea -Continue Metoprolol 75mg po BID -Continue Spironolactone (4) Diabetes mellitus: Plan: Chronic. Blood sugar presently 124. Last HgbA1C= 7.1 on 01/02/21 -Continue insulin, novolog sliding scale -Goal blood sugar 100 - 140 -CC diet as tolerated (5) Dyslipidemia: Plan: Chronic -Continue Simvastatin 20mg po daily (6) Hypertension: Plan: Chronic. Well controlled. -Continue Metoprolol and Spironolactone -Continue to monitor (7) Paroxysmal atrial fibrillation: Plan: Ventricular bigeminy as above -Continue Metoprolol 75mg po BID -Continue Coumadin -INR is therapeutic, follow INR in the morning (8) Rheumatoid arthritis: Plan: Chronic. Well controlled. 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 She is still having nausea but no vomiting. No abdominal pains. She just does not feel well. She reports loose stools for several months but definitely much worse in the last few days. She thinks her last colonoscopy was over 10 years ago. She did have some hypoglycemia this morning and she felt generally weak. Telemetry with paced rhythm and PVCs with rates in the 70s to 80s with frequent ventricular bigeminy Review of Systems Review of Systems: All systems reviewed & are unremarkable except as noted in HPI & below Physical Exam Constitutional: WD/WN, vitals as above Eyes: + anicteric sclerae Neck: trachea midline, no thyromegaly Respiratory: normal respiratory effort, lungs clear to auscultation Cardiovascular: RRR, no murmur, no edema Chest (Breasts): Chest: normal inspection of chest Gastrointestinal (Abdomen): normal bowel sounds, soft, nontender, no hepatosplenomegaly Musculoskeletal: Extremities: extremities normal to inspection; no cyanosis and no clubbing Skin: no rashes, warm and dry Neurologic: moves all extremities and awake; no focal motor deficits Psychiatric: A+Ox3, euthymic affect Lymphatic: no lymphedema Results & Data Results & Data ([facility]) Vital Signs (Past 12 Hours) Vital Signs Temp Pulse Pulse Resp BP BP Pulse Ox 01/24/21 15:44 73 01/24/21 15:33 37.1 C 67 18 113/71 91 01/24/21 10:52 36.6 C 90 18 107/66 91 01/24/21 08:00 36.4 C L 85 20 105/58 L 90 01/24/21 07:33 77 Laboratory Results 01/24/21 01/24/21 01/24/21 Range/Units 20:12 16:29 13:40 WBC (4.8-10.8) K/uL RBC (4.2-5.4) M/uL Hgb (12.0-16.0) g/dL Hct (37-47) % MCV (80-100) fL MCH (25-34) pg MCHC (32-36) g/dL RDW Std Deviation (36.4-46.3) fL RDW Coeff of Shai (11.5-14.5) % Plt Count (130-400) K/uL MPV (7.4-10.4) fL Immature Gran % (Auto) % Neut % (Auto) % Lymph % (Auto) % [place] % (Auto) % Eos % (Auto) % Baso % (Auto) % Neut # (Auto) (1.4-6.5) K/uL Lymph # (Auto) (1.2-3.4) K/uL [place] # (Auto) (0.11-0.59) K/uL Eos # (Auto) (0-0.5) K/uL Baso # (Auto) (0-0.2) K/uL Immature Gran # (Auto) (0.00-0.02) K/uL Anisocytosis PT (9.0-12.0) Seconds INR (0.9-1.1) Sodium (136-145) mmol/L Potassium (3.5-5.1) mmol/L Chloride (98-107) mmol/L Carbon Dioxide (21-32) mmol/L Anion Gap (3-11) BUN (7-18) mg/dl Creatinine (0.6-1.2) mg/dl Est Cr Clr Drug Dosing ml/min Est GFR ( Amer) ml/min Est GFR (Non-Af Amer) ml/min BUN/Creatinine Ratio (10-20) Glucose (70-99) mg/dl POC Glucose 100 H 82 (70-99) mg/dl Calcium (8.5-10.1) mg/dl Magnesium (1.8-2.4) mg/dl Stl C. diff Tox B Gene (Neg) Stool Comments Pending 08/01/24/21 01/24/21 Range/Units 13:40 11:29 08:20 WBC 8.73 (4.8-10.8) K/uL RBC 4.18 L (4.2-5.4) M/uL Hgb 13.1 (12.0-16.0) g/dL Hct 39.9 (37-47) % MCV 95.5 (80-100) fL MCH 31.3 (25-34) pg MCHC 32.8 (32-36) g/dL RDW Std Deviation 52.5 H (36.4-46.3) fL RDW Coeff of Shai 15.4 H (11.5-14.5) % Plt Count 177 (130-400) K/uL MPV 9.8 (7.4-10.4) fL Immature Gran % (Auto) 0.2 % Neut % (Auto) 70.1 % Lymph % (Auto) 15.9 % [place] % (Auto) 10.7 % Eos % (Auto) 2.9 % Baso % (Auto) 0.2 % Neut # (Auto) 6.12 (1.4-6.5) K/uL Lymph # (Auto) 1.39 (1.2-3.4) K/uL [place] # (Auto) 0.93 H (0.11-0.59) K/uL Eos # (Auto) 0.25 (0-0.5) K/uL Baso # (Auto) 0.02 (0-0.2) K/uL Immature Gran # (Auto) 0.02 (0.00-0.02) K/uL Anisocytosis Present PT (9.0-12.0) Seconds INR (0.9-1.1) Sodium (136-145) mmol/L Potassium (3.5-5.1) mmol/L Chloride (98-107) mmol/L Carbon Dioxide (21-32) mmol/L Anion Gap (3-11) BUN (7-18) mg/dl Creatinine (0.6-1.2) mg/dl Est Cr Clr Drug Dosing ml/min Est GFR ( Amer) ml/min Est GFR (Non-Af Amer) ml/min BUN/Creatinine Ratio (10-20) Glucose (70-99) mg/dl POC Glucose 76 (70-99) mg/dl Calcium (8.5-10.1) mg/dl Magnesium (1.8-2.4) mg/dl Stl C. diff Tox B Gene Negative Cdiff Gene (Neg) Stool Comments 01/24/21 01/24/21 01/24/21 Range/Units 08:20 08:20 08:19 WBC (4.8-10.8) K/uL RBC (4.2-5.4) M/uL Hgb (12.0-16.0) g/dL Hct (37-47) % MCV (80-100) fL MCH (25-34) pg MCHC (32-36) g/dL RDW Std Deviation (36.4-46.3) fL RDW Coeff of Shai (11.5-14.5) % Plt Count (130-400) K/uL MPV (7.4-10.4) fL Immature Gran % (Auto) % Neut % (Auto) % Lymph % (Auto) % [place] % (Auto) % Eos % (Auto) % Baso % (Auto) % Neut # (Auto) (1.4-6.5) K/uL Lymph # (Auto) (1.2-3.4) K/uL [place] # (Auto) (0.11-0.59) K/uL Eos # (Auto) (0-0.5) K/uL Baso # (Auto) (0-0.2) K/uL Immature Gran # (Auto) (0.00-0.02) K/uL Anisocytosis PT 24.7 H (9.0-12.0) Seconds INR 2.6 H (0.9-1.1) Sodium 136 (136-145) mmol/L Potassium 4.0 D (3.5-5.1) mmol/L Chloride 109 H (98-107) mmol/L Carbon Dioxide 21 (21-32) mmol/L Anion Gap 7.0 (3-11) BUN 51 H (7-18) mg/dl Creatinine 2.39 H (0.6-1.2) mg/dl Est Cr Clr Drug Dosing 20.0 ml/min Est GFR ( Amer) 21.0 ml/min Est GFR (Non-Af Amer) 18.2 ml/min BUN/Creatinine Ratio 21.1 H (10-20) Glucose 74 (70-99) mg/dl POC Glucose 79 (70-99) mg/dl Calcium 8.6 (8.5-10.1) mg/dl Magnesium 2.5 H (1.8-2.4) mg/dl Stl C. diff Tox B Gene (Neg) Stool Comments 01/24/21 01/24/21 Range/Units 07:49 07:46 WBC (4.8-10.8) K/uL RBC (4.2-5.4) M/uL Hgb (12.0-16.0) g/dL Hct (37-47) % MCV (80-100) fL MCH (25-34) pg MCHC (32-36) g/dL RDW Std Deviation (36.4-46.3) fL RDW Coeff of Shai (11.5-14.5) % Plt Count (130-400) K/uL MPV (7.4-10.4) fL Immature Gran % (Auto) % Neut % (Auto) % Lymph % (Auto) % [place] % (Auto) % Eos % (Auto) % Baso % (Auto) % Neut # (Auto) (1.4-6.5) K/uL Lymph # (Auto) (1.2-3.4) K/uL [place] # (Auto) (0.11-0.59) K/uL Eos # (Auto) (0-0.5) K/uL Baso # (Auto) (0-0.2) K/uL Immature Gran # (Auto) (0.00-0.02) K/uL Anisocytosis PT (9.0-12.0) Seconds INR (0.9-1.1) Sodium (136-145) mmol/L Potassium (3.5-5.1) mmol/L Chloride (98-107) mmol/L Carbon Dioxide (21-32) mmol/L Anion Gap (3-11) BUN (7-18) mg/dl Creatinine (0.6-1.2) mg/dl Est Cr Clr Drug Dosing ml/min Est GFR ( Amer) ml/min Est GFR (Non-Af Amer) ml/min BUN/Creatinine Ratio (10-20) Glucose (70-99) mg/dl POC Glucose 63 L* 62 L* (70-99) mg/dl Calcium (8.5-10.1) mg/dl Magnesium (1.8-2.4) mg/dl Stl C. diff Tox B Gene (Neg) Stool Comments PG Care Time/CCT Total # of Minutes Spent Total Time Spent with Patient: Total time spent is greater than 50% in coordination of care (as documented) at patient's floor/unit and/or counseling patient: Coding Level of Care Code 34756 Subseq Hosp Care Lvl 3 Diagnoses Vomiting and diarrhea R11.10; R19.7 Ventricular bigeminy I49.8 Chronic systolic congestive heart failure I50.22 Diabetes mellitus E11.9 Dyslipidemia E78.5 Hypertension I10 Paroxysmal atrial fibrillation I48.0 Rheumatoid arthritis M06.9 Secondary hyperparathyroidism N25.81 GERD (gastroesophageal reflux disease) K21.9 CKD (chronic kidney disease) N18.9 DVT prophylaxis Z29.9
[2021-01-24] MEDS: ONDANSETRON INJ 2 MG/ML 2 ML VIAL IV PRN (18:06)
[2021-01-24] MEDS: LORazepam 0.5 MG TAB PO PRN (23:22)
[2021-01-25] MEDS: CARBOHYDRATES FOR HYPOGLYCEMIA PO PRN (01:04)
[2021-01-25 06:08] LABS: Basophils # (auto) 0.01 K/uL (0-0.2); Basophils % (auto) 0.1 %; Eosinophils # (auto) 0.24 K/uL (0-0.5); Eosinophils % (auto) 3.3 %; Hematocrit (blood only) 36.1 % (37-47); Immature Granulocytes # (auto) 0.01 K/uL (0.00-0.02); Immature Granulocytes % (auto) 0.1 %; Lymphocytes # (auto) 1.96 K/uL (1.2-3.4); Lymphocytes % (auto) 27.1 %; Mean Corpuscular Hemoglobin 31.7 pg (25-34); Mean Corpuscular Hgb Conc 33.2 g/dL (32-36); Mean Corpuscular Volume 95.5 fL (80-100); Mean Platelet Volume 9.4 fL (7.4-10.4); Monocytes # (auto) 0.78 K/uL (0.11-0.59); Monocytes % (auto) 10.8 %; Neutrophils # (auto) 4.24 K/uL (1.4-6.5); Neutrophils % (auto) 58.6 %; Platelet Count 164 K/uL (130-400); RDW Coefficient of Variation 15.2 % (11.5-14.5); RDW Standard Deviation 51.8 fL (36.4-46.3); Red Blood Count 3.78 M/uL (4.2-5.4); White Blood Count 7.24 K/uL (4.8-10.8)
[2021-01-25 06:35] LABS: Albumin Level 3.2 gm/dl (3.4-5.0); Bilirubin Direct 0.2 mg/dl (0-0.2); Bilirubin,Total 0.6 mg/dl (0.2-1); Calcium 8.2 mg/dl (8.5-10.1); Creatinine Clr Calc Pharmacy 22.8 ml/min; Est GFR (African American) 24.6 ml/min; Est GFR (Non-African American) 21.2 ml/min; Magnesium 2.5 mg/dl (1.8-2.4); Potassium 3.6 mmol/L (3.5-5.1); Total Protein 6.3 gm/dl (6.4-8.2)
[2021-01-25] MEDS ORDERED: INSULIN GLARGINE SOLOSTAR 100 UNITS/ML 3 ML PEN SC SCH (09:00)
[2021-01-25] MEDS: METOPROLOL SUCC 25MG EXT REL TAB PO SCH ×2 (09:38→20:36)
[2021-01-25] MEDS: SPIRONOLACTONE 25 MG TAB PO SCH (09:38)
[2021-01-25] MEDS: CALCITRIOL 0.25 MCG CAPSULE PO SCH (09:38)
[2021-01-25] MEDS: PANTOprazole 40 MG in SYRINGE 0 ML IV SCH ×2 (09:38→20:38)
[2021-01-25] MEDS: INSULIN ASPART 100 UNITS/ML 3 ML PEN SC SCH ×4 (09:38→20:39)
[2021-01-25] MEDS: SIMVASTATIN 20 MG TAB PO SCH (09:38)
[2021-01-25] MEDS ORDERED: POTASSIUM PHOS 3 MMOL/1 ML INFUSION IV STA (10:00)
[2021-01-25] MEDS ORDERED: POTASSIUM PHOSPHATE 15 MMOL in SODIUM CHLORIDE 0.9% 250 ML IV ONE (10:15)
[2021-01-25] MEDS ORDERED: metHOTREXate sodium 2.5 MG TAB PO ONE (15:30)
--- NOTE | 2021-01-25 15:31 | Hospitalist Progress Note ---
Date of Service January 25, 2021 Assessment & Plan (1) Vomiting and diarrhea: Plan: Etiology uncertain. She has had nausea/vomiting, and diarrhea for several months, but much worse since starting amiodarone a few days prior to admission. She is also having significantly loud belching that is frequent She is afebrile, HD stable, non-toxic in appearance. She does have a neutrophil predominant leukocytosis possibly reactive. Liver studies, lipase and electrolytes largely unremarkable. CT scan with possible gastritis. No recent antibiotic use. C. difficile stool is negative Diarrhea is improved with Imodium -Nausea had been somewhat improved and she is able to eat, but will continue with antiemetics as needed -Treating gastritis with IV PPI twice daily -Stool culture, ova and parasites are pending -Continue Imodium as needed diarrhea -Request GI consultation as per family request (2) Ventricular bigeminy: Plan: Patient with BiV AICD in place, follows with Dr. Lees. Has around 30% of daily beats as PVCs as per my discussion with cardiology. Is on Metoprolol 75mg po BID. Was tried on Amiodarone but unable to tolerate due to GI side effects. Patient is unwilling to try IV amiodarone or lower dose of oral amiodarone due to significant GI side effects This is likely contributing to her chronic fatigue and dyspnea on exertion -Telemetry monitoring shows frequent ventricular bigeminy -Monitor electrolytes and replete as needed -Continue Metoprolol 75mg po BID -Cardiology consultation appreciated re: additional rhythm control agents vs pacer adjustment versus ablation-we will see if cardiology wants to try a different antiarrhythmic while she is admitted to the hospital (3) Chronic systolic congestive heart failure: Plan: Chronic. Volume status is mildly dry due to diarrhea but improved today -Continue Metoprolol 75mg po BID -Continue Spironolactone (4) Diabetes mellitus: Plan: Chronic. With hypoglycemia on 2 mornings in a row here Daughter reports patient eats a lot more carbohydrates at home than here in the hospital Discontinue Lantus and loosen correction factor, discontinue carbohydrate coverage Last HgbA1C= 7.1 on 01/02/21 Check a 2 AM glucose tonight to look for hypoglycemia (5) Dyslipidemia: Plan: Chronic -Continue Simvastatin 20mg po daily (6) Hypertension: Plan: Chronic. Well controlled. -Continue Metoprolol and Spironolactone -Continue to monitor (7) Paroxysmal atrial fibrillation: Plan: Ventricular bigeminy as above -Continue Metoprolol 75mg po BID -Continue Coumadin -INR is therapeutic, follow INR in the morning (8) Rheumatoid arthritis: Plan: Chronic. Well controlled except having bilateral shoulder pain and left wrist pain today. 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 Awaiting GI consultation and cardiology decision on further antiarrhythmics Discussed her care with her [id number] at the bedside Admission and Anticipated Discharge Date Admission Date: January 23, 2021 Subjective Patient reports no further diarrhea since taking Imodium yesterday.Still has a little bit of nausea but was able to eat 2 full meals of solid foods today. She denies abdominal pains except for right before she has to move her bowels usually. Her [id number] is at the bedside and is requesting an inpatient GI consultation for the patient's ongoing nausea/vomiting/diarrhea for several months. The patient denies any blood in the stool. The patient and her [id number] also insist that she does not want to start back on amiodarone at all including IV amiodarone as per cardiology's original plan. They would like to discuss with cardiology about other options for controlling her frequent PVCs. Patient denies chest pains or shortness of breath. She just feels generally weak and has decreased exercise tolerance. She was ambulating around the [place] hallways before I saw her today. She was hypoglycemic this morning and her [id number] reports that the patient is eating a much healthier diet here in the hospital than at home. Telemetry with paced rhythm and multiple PVCs and frequent bigeminy. I discussed her care with cardiology, Dr. Becerra, on the phone who will review her case and see her tomorrow. Review of Systems Review of Systems: All systems reviewed & are unremarkable except as noted in HPI & below Complaining of bilateral shoulder pain and left wrist pain today that is consistent with her usual flareup of arthritis Physical Exam Constitutional: WD/WN, vitals as above Eyes: + anicteric sclerae Neck: trachea midline, no thyromegaly Respiratory: normal respiratory effort, lungs clear to auscultation Cardiovascular: RRR, no murmur, no edema (With frequent ectopy) Chest (Breasts): Chest: normal inspection of chest Gastrointestinal (Abdomen): normal bowel sounds, soft, nontender, no hepatosplenomegaly Musculoskeletal: Extremities: extremities normal to inspection; no cyanosis and no clubbing Skin: no rashes, warm and dry Neurologic: moves all extremities and awake; no focal motor deficits Psychiatric: A+Ox3, euthymic affect Lymphatic: no lymphedema Results & Data Results & Data ([place]) Vital Signs (Past 12 Hours) Vital Signs Temp Pulse Resp BP Pulse Ox 01/25/21 12:06 36.6 C 70 18 109/71 92 01/25/21 08:12 36.4 C L 51 L 20 122/74 96 01/25/21 04:39 36.6 C 71 18 118/57 L 90 Laboratory Results 01/25/21 01/25/21 01/25/21 Range/Units 20:14 16:59 11:29 WBC (4.8-10.8) K/uL RBC (4.2-5.4) M/uL Hgb (12.0-16.0) g/dL Hct (37-47) % MCV (80-100) fL MCH (25-34) pg MCHC (32-36) g/dL RDW Std Deviation (36.4-46.3) fL RDW Coeff of Shai (11.5-14.5) % Plt Count (130-400) K/uL MPV (7.4-10.4) fL Immature Gran % (Auto) % Neut % (Auto) % Lymph % (Auto) % [place] % (Auto) % Eos % (Auto) % Baso % (Auto) % Neut # (Auto) (1.4-6.5) K/uL Lymph # (Auto) (1.2-3.4) K/uL [place] # (Auto) (0.11-0.59) K/uL Eos # (Auto) (0-0.5) K/uL Baso # (Auto) (0-0.2) K/uL Immature Gran # (Auto) (0.00-0.02) K/uL Sodium (136-145) mmol/L Potassium (3.5-5.1) mmol/L Chloride (98-107) mmol/L Carbon Dioxide (21-32) mmol/L Anion Gap (3-11) BUN (7-18) mg/dl Creatinine (0.6-1.2) mg/dl Est Cr Clr Drug Dosing ml/min Est GFR ( Amer) ml/min Est GFR (Non-Af Amer) ml/min BUN/Creatinine Ratio (10-20) Glucose (70-99) mg/dl POC Glucose 120 H 102 H 87 (70-99) mg/dl Calcium (8.5-10.1) mg/dl Phosphorus (2.5-4.9) mg/dl Magnesium (1.8-2.4) mg/dl Total Bilirubin (0.2-1) mg/dl Direct Bilirubin (0-0.2) mg/dl AST (15-37) U/L ALT (12-78) U/L Alkaline Phosphatase (45-117) U/L Total Protein (6.4-8.2) gm/dl Albumin (3.4-5.0) gm/dl 01/25/21 01/25/21 01/25/21 Range/Units 07:42 07:08 05:41 WBC (4.8-10.8) K/uL RBC (4.2-5.4) M/uL Hgb (12.0-16.0) g/dL Hct (37-47) % MCV (80-100) fL MCH (25-34) pg MCHC (32-36) g/dL RDW Std Deviation (36.4-46.3) fL RDW Coeff of Shai (11.5-14.5) % Plt Count (130-400) K/uL MPV (7.4-10.4) fL Immature Gran % (Auto) % Neut % (Auto) % Lymph % (Auto) % [place] % (Auto) % Eos % (Auto) % Baso % (Auto) % Neut # (Auto) (1.4-6.5) K/uL Lymph # (Auto) (1.2-3.4) K/uL [place] # (Auto) (0.11-0.59) K/uL Eos # (Auto) (0-0.5) K/uL Baso # (Auto) (0-0.2) K/uL Immature Gran # (Auto) (0.00-0.02) K/uL Sodium 138 (136-145) mmol/L Potassium 3.6 (3.5-5.1) mmol/L Chloride 110 H (98-107) mmol/L Carbon Dioxide 23 (21-32) mmol/L Anion Gap 5.0 (3-11) BUN 46 H (7-18) mg/dl Creatinine 2.10 H (0.6-1.2) mg/dl Est Cr Clr Drug Dosing 22.8 ml/min Est GFR ( Amer) 24.6 ml/min Est GFR (Non-Af Amer) 21.2 ml/min BUN/Creatinine Ratio 22.0 H (10-20) Glucose 48 L* (70-99) mg/dl POC Glucose 93 88 (70-99) mg/dl Calcium 8.2 L (8.5-10.1) mg/dl Phosphorus 2.0 L (2.5-4.9) mg/dl Magnesium 2.5 H (1.8-2.4) mg/dl Total Bilirubin 0.6 (0.2-1) mg/dl Direct Bilirubin 0.2 (0-0.2) mg/dl AST 19 (15-37) U/L ALT 22 (12-78) U/L Alkaline Phosphatase 54 (45-117) U/L Total Protein 6.3 L (6.4-8.2) gm/dl Albumin 3.2 L (3.4-5.0) gm/dl 01/25/21 01/25/21 01/25/21 Range/Units 05:41 01:50 00:58 WBC 7.24 (4.8-10.8) K/uL RBC 3.78 L (4.2-5.4) M/uL Hgb 12.0 (12.0-16.0) g/dL Hct 36.1 L (37-47) % MCV 95.5 (80-100) fL MCH 31.7 (25-34) pg MCHC 33.2 (32-36) g/dL RDW Std Deviation 51.8 H (36.4-46.3) fL RDW Coeff of Shai 15.2 H (11.5-14.5) % Plt Count 164 (130-400) K/uL MPV 9.4 (7.4-10.4) fL Immature Gran % (Auto) 0.1 % Neut % (Auto) 58.6 % Lymph % (Auto) 27.1 % [place] % (Auto) 10.8 % Eos % (Auto) 3.3 % Baso % (Auto) 0.1 % Neut # (Auto) 4.24 (1.4-6.5) K/uL Lymph # (Auto) 1.96 (1.2-3.4) K/uL [place] # (Auto) 0.78 H (0.11-0.59) K/uL Eos # (Auto) 0.24 (0-0.5) K/uL Baso # (Auto) 0.01 (0-0.2) K/uL Immature Gran # (Auto) 0.01 (0.00-0.02) K/uL Sodium (136-145) mmol/L Potassium (3.5-5.1) mmol/L Chloride (98-107) mmol/L Carbon Dioxide (21-32) mmol/L Anion Gap (3-11) BUN (7-18) mg/dl Creatinine (0.6-1.2) mg/dl Est Cr Clr Drug Dosing ml/min Est GFR ( Amer) ml/min Est GFR (Non-Af Amer) ml/min BUN/Creatinine Ratio (10-20) Glucose (70-99) mg/dl POC Glucose 91 64 L* (70-99) mg/dl Calcium (8.5-10.1) mg/dl Phosphorus (2.5-4.9) mg/dl Magnesium (1.8-2.4) mg/dl Total Bilirubin (0.2-1) mg/dl Direct Bilirubin (0-0.2) mg/dl AST (15-37) U/L ALT (12-78) U/L Alkaline Phosphatase (45-117) U/L Total Protein (6.4-8.2) gm/dl Albumin (3.4-5.0) gm/dl 01/25/21 Range/Units 00:56 WBC (4.8-10.8) K/uL RBC (4.2-5.4) M/uL Hgb (12.0-16.0) g/dL Hct (37-47) % MCV (80-100) fL MCH (25-34) pg MCHC (32-36) g/dL RDW Std Deviation (36.4-46.3) fL RDW Coeff of Shai (11.5-14.5) % Plt Count (130-400) K/uL MPV (7.4-10.4) fL Immature Gran % (Auto) % Neut % (Auto) % Lymph % (Auto) % [place] % (Auto) % Eos % (Auto) % Baso % (Auto) % Neut # (Auto) (1.4-6.5) K/uL Lymph # (Auto) (1.2-3.4) K/uL [place] # (Auto) (0.11-0.59) K/uL Eos # (Auto) (0-0.5) K/uL Baso # (Auto) (0-0.2) K/uL Immature Gran # (Auto) (0.00-0.02) K/uL Sodium (136-145) mmol/L Potassium (3.5-5.1) mmol/L Chloride (98-107) mmol/L Carbon Dioxide (21-32) mmol/L Anion Gap (3-11) BUN (7-18) mg/dl Creatinine (0.6-1.2) mg/dl Est Cr Clr Drug Dosing ml/min Est GFR ( Amer) ml/min Est GFR (Non-Af Amer) ml/min BUN/Creatinine Ratio (10-20) Glucose (70-99) mg/dl POC Glucose 57 L* (70-99) mg/dl Calcium (8.5-10.1) mg/dl Phosphorus (2.5-4.9) mg/dl Magnesium (1.8-2.4) mg/dl Total Bilirubin (0.2-1) mg/dl Direct Bilirubin (0-0.2) mg/dl AST (15-37) U/L ALT (12-78) U/L Alkaline Phosphatase (45-117) U/L Total Protein (6.4-8.2) gm/dl Albumin (3.4-5.0) gm/dl PG Care Time/CCT Total # of Minutes Spent Total Time Spent with Patient: Total time spent is greater than 50% in coordination of care (as documented) at patient's floor/unit and/or counseling patient: Coding Level of Care Code 86223 Subseq Hosp Care Lvl 3 Diagnoses Vomiting and diarrhea R11.10; R19.7 Ventricular bigeminy I49.8 Chronic systolic congestive heart failure I50.22 Diabetes mellitus E11.9 Dyslipidemia E78.5 Hypertension I10 Paroxysmal atrial fibrillation I48.0 Rheumatoid arthritis M06.9 Secondary hyperparathyroidism N25.81 GERD (gastroesophageal reflux disease) K21.9 CKD (chronic kidney disease) N18.9 DVT prophylaxis Z29.9 Hypophosphatemia E83.39
[2021-01-25] MEDS: WARFARIN SOD 4 MG TAB PO SCH (16:20)
[2021-01-25] MEDS: DICLOFENAC SOD 1% GEL 100 GM TUBE EXT SCH ×2 (16:21→20:37)
[2021-01-25] MEDS: ACETAMINOPHEN 325 MG TAB PO PRN (22:30)
[2021-01-26] MEDS: CARBOHYDRATES FOR HYPOGLYCEMIA PO PRN (02:10)
[2021-01-26] MEDS: ACETAMINOPHEN 325 MG TAB PO PRN ×2 (02:26→10:32)
[2021-01-26 08:04] LABS: Basophils # (auto) 0.01 K/uL (0-0.2); Basophils % (auto) 0.1 %; Eosinophils # (auto) 0.13 K/uL (0-0.5); Eosinophils % (auto) 1.8 %; Hematocrit (blood only) 37.5 % (37-47); Hemoglobin 12.4 g/dL (12.0-16.0); Immature Granulocytes # (auto) 0.01 K/uL (0.00-0.02); Immature Granulocytes % (auto) 0.1 %; Lymphocytes # (auto) 1.51 K/uL (1.2-3.4); Lymphocytes % (auto) 21.2 %; Mean Corpuscular Hemoglobin 31.4 pg (25-34); Mean Corpuscular Hgb Conc 33.1 g/dL (32-36); Mean Corpuscular Volume 94.9 fL (80-100); Mean Platelet Volume 9.8 fL (7.4-10.4); Monocytes # (auto) 0.85 K/uL (0.11-0.59); Monocytes % (auto) 11.9 %; Neutrophils # (auto) 4.62 K/uL (1.4-6.5); Neutrophils % (auto) 64.9 %; Platelet Count 187 K/uL (130-400); RDW Coefficient of Variation 15.5 % (11.5-14.5); RDW Standard Deviation 52.8 fL (36.4-46.3); Red Blood Count 3.95 M/uL (4.2-5.4); White Blood Count 7.13 K/uL (4.8-10.8)
[2021-01-26] MEDS: PANTOprazole 40 MG in SYRINGE 0 ML IV SCH ×2 (08:10→20:20)
[2021-01-26] MEDS: METOPROLOL SUCC 25MG EXT REL TAB PO SCH ×2 (08:10→20:19)
[2021-01-26] MEDS: SIMVASTATIN 20 MG TAB PO SCH (08:10)
[2021-01-26] MEDS: SPIRONOLACTONE 25 MG TAB PO SCH (08:10)
[2021-01-26] MEDS: CALCITRIOL 0.25 MCG CAPSULE PO SCH (08:11)
[2021-01-26] MEDS: DICLOFENAC SOD 1% GEL 100 GM TUBE EXT SCH ×4 (08:11→20:15)
[2021-01-26] MEDS: FOLIC ACID 1 MG TAB PO SCH (08:11)
[2021-01-26 08:29] LABS: BUN Creatinine Ratio 20.2 (10-20); Calcium 8.5 mg/dl (8.5-10.1); Creatinine Clr Calc Pharmacy 23.4 ml/min; Est GFR (African American) 25.5 ml/min; Magnesium 2.4 mg/dl (1.8-2.4)
[2021-01-26 08:38] LABS: Phosphorus 2.6 mg/dl (2.5-4.9)
[2021-01-26 08:44] LABS: INR 4.1 (0.9-1.1); Prothrombin Time 37.1 Seconds (9.0-12.0)
[2021-01-26] MEDS ORDERED: INSULIN GLARGINE SOLOSTAR 100 UNITS/ML 3 ML PEN SC SCH (09:00)
[2021-01-26] MEDS: INSULIN ASPART 100 UNITS/ML 3 ML PEN SC SCH ×4 (09:58→20:19)
[2021-01-26] MEDS ORDERED: traMADol HCL 50 MG TABLET PO PRN (10:42)
[2021-01-26] MEDS: LORazepam 0.5 MG TAB PO PRN ×2 (10:57→21:42)
--- NOTE | 2021-01-26 13:08 | Gastrointestinal Consultation ---
Date of Consultation January 26, 2021 Assessment & Plan (1) Abdominal pain: (2) Vomiting and diarrhea: Supervising Physician Co-Signing Physician Notes No reports of nausea/vomiting/diarrhea to me. She is on IV PPI. Mild gastritis noted on imaging- this will likely improve with PPI therapy. Can consider carafate 1 gram qid for 28 days as an adjunct if worsening symptoms. No plans for endoscopy at this time. She is on coumadin. History of Present Illness Reason for Consultation: Nausea/vomiting/diarrhea Requesting Physician: Dr. Harris Attending Physician: Eunice Harris MD History of Present Illness 85 yo fm with a history of systolic chf, biv aicd, type 2 dm, steroid dependent ra, afib on coumadin, admitted on 01/23/21 for concerns for nausea/vomiting/diarrhea. She reports all of those symptoms have since improved. She's walking back and forth to the bathroom when I see her but not going to the bathroom bc of diarrhea. No reports of fevers, chills, chest pain, belly, nausea, vomiting, diarrhea currently. Workup thus far shows normal cbc, cmp, CT a/p showing gastritis. On IV PPI. Tolerating PO. Allergies Allergy/AdvReac Type Severity Reaction Status Date / Time aspirin AdvReac Unknown history of Verified 01/22/21 18:52 ulcers nortriptyline AdvReac Unknown DOESN'T Verified 01/22/21 18:52 REMEMBER Home Medications Medication Instructions Recorded Confirmed Type tocilizumab 80 mg/4 mL (20 mg/mL) 0 mg IV Q28D ml 03/03/18 01/22/21 History intravenous solution ascorbate calcium-bioflavonoid 1 tab PO QAM 11/11/18 01/22/21 History 1,000 mg-200 mg tablet (Annamaria-C with Bioflavonoids) calcium polycarbophil 625 mg 650 mg PO QAM PRN 02/10/19 01/22/21 History tablet (Fiber (calcium polycarbophil)) methotrexate sodium 2.5 mg tablet 5 mg PO SA tab 03/30/19 01/22/21 History folic acid 1 mg tablet 1 mg PO DAILY #90 tab 07/14/19 01/22/21 Rx ipratropium bromide 21 mcg (0.03 2 sprays INTNAS BID PRN #30 ml 09/29/19 01/22/21 Rx %) nasal spray meclizine 25 mg tablet 25 mg PO TID PRN #30 tab 12/20/19 01/22/21 Rx blood-glucose meter (OneTouch #1 ea 12/21/19 01/08/21 Rx Ultra2 Meter) lorazepam 0.5 mg tablet 0.5 mg PO BID PRN #60 tab 03/12/20 01/22/21 Rx cholecalciferol (vitamin D3) 50 2,000 unit PO QAM #90 cap 03/25/20 01/22/21 Rx mcg (2,000 unit) capsule (Vitamin D3) blood sugar diagnostic (OneTouch #100 ea 04/17/20 01/08/21 Rx Ultra Blue Test Strip) calcitriol 0.25 mcg capsule 0.25 mcg PO DAILY #90 cap 05/16/20 01/22/21 Rx insulin lispro 100 unit/mL See Rx Instructions SQ AC #15 ml 05/16/20 01/22/21 Rx subcutaneous pen (Humalog KwikPen (U-100) Insulin) spironolactone 50 mg tablet 50 mg PO QAM #90 tab 06/04/20 01/22/21 Rx pen needle, diabetic 32 gauge x #100 ea 08/02/20 01/08/21 Rx 1/4" (BD Ultra-Fine Micro Pen Needle) cyclobenzaprine 10 mg tablet 10 mg PO TID PRN #30 tab 08/13/20 01/22/21 Rx montelukast 10 mg tablet 10 mg PO DAILY #90 tab 08/21/20 01/22/21 Rx metoprolol succinate 50 mg 75 mg PO BID #270 tab 08/23/20 01/22/21 Rx tablet,extended release 24 hr furosemide 40 mg tablet 40 mg PO .COMPLEX #135 tab 10/04/20 01/22/21 Rx simvastatin 20 mg tablet 20 mg PO DAILY #90 tab 10/04/20 01/22/21 Rx insulin glargine U-300 conc 300 22 unit SUBCUT DAILY #4.5 ml 11/26/20 01/22/21 Rx unit/mL (1.5 mL) subcutaneous pen (Toujeo SoloStar U-300 Insulin) ondansetron 4 mg disintegrating 4 mg PO Q6H PRN #14 tab 12/12/20 01/22/21 Rx tablet omeprazole 40 mg capsule,delayed 40 mg PO DAILY #30 cap 12/16/20 01/22/21 Rx release warfarin 4 mg tablet (Jantoven) See Rx Instructions PO UD #75 tab 01/03/21 01/22/21 Rx amiodarone 200 mg tablet 200 mg PO TID #90 tab 01/20/21 01/22/21 Rx diclofenac sodium 1 % topical gel 2 g TOPICAL QID PRN 01/22/21 01/22/21 History Patient History Medical History Acquired claw toe of right foot Anxiety Asymmetrical right sensorineural hearing loss Biventricular ICD (implantable cardioverter-defibrillator) in place (2015) Chronic systolic congestive heart failure Degenerative joint disease (DJD) of lumbar spine Depression Diabetes mellitus with neuropathy Diabetic peripheral neuropathy Dyslipidemia Foot deformity GERD without esophagitis Hallux abducto valgus, bilateral History of basal cell carcinoma Hypertension Non-ischemic cardiomyopathy Normal coronary arteries (2014) PAC (premature atrial contraction) Rheumatoid arthritis Secondary hyperparathyroidism Sensorineural hearing loss (SNHL) of both ears SNHL (sensorineural hearing loss) Stage III chronic kidney disease Third degree AV block Surgical History S/P cataract extraction and insertion of intraocular lens S/P cholecystectomy S/P total knee arthroplasty S/P tubal ligation Family History Father Heart disease Mother Diabetes Heart disease Myocardial infarction Grandfather (Maternal) Prostate cancer Other Family history non-contributory Denies family history of Ovarian cancer Breast cancer Colorectal cancer Social History Smoking Status: Never smoker Second Hand Exposure: Yes; Do You Dip or Chew Tobacco: No; Hx Alcohol Use: No Hx Substance Use: No Preferred Language: Tanzanian Communication Ability: Effective Visual Impairment: No Limitations Hearing Ability: Use of Hearing Aid Beliefs That Will Affect Care: None marital status: Current Living Situation: Spouse current occupational status: retired Other Information That Helps Us Care for You: No Feels Safe at Home: Yes Safety Concerns: Feels Safe At This Time Childhood Exposure to Second-Hand Smoke: Yes Dental Care, Regularly: Yes Physical Activity Frequency: Does not Exercise Seatbelt Use: always Sunscreen Use: Yes Assistive Devices: Cane Review of Systems Review of Systems: All systems reviewed & are unremarkable except as noted in HPI & below Physical Exam Physical Exam: Elderly appearing female in nad, standing up without distress Respiratory: normal respiratory effort, lungs clear to auscultation Gastrointestinal (Abdomen): normal bowel sounds, soft, nontender, no hepatosplenomegaly Skin: Mild scattered moles all over Neurologic: PERRL, EOMI, accommodation nl, no face palsy, no dysarthria Results & Data ([facility]) Vital Signs (Past 12 Hours) Vital Signs Temp Pulse Pulse Resp BP Pulse Ox 01/26/21 08:09 73 148/79 H 01/26/21 07:00 79 01/26/21 06:56 36.5 C 68 18 136/73 95 01/26/21 04:35 37.0 C 65 18 125/70 96 01/26/21 02:[address] a/p reviewed- gastritis (1) Abdominal pain Abdominal location: unspecified location Qualified Code(s): R10.9 - Unspecified abdominal pain
[2021-01-26] MEDS: SUCRALFATE 1 GM/10 ML UDC PO SCH ×2 (17:06→20:20)
--- NOTE | 2021-01-26 17:57 | Hospitalist Progress Note ---
Date of Service January 26, 2021 Assessment & Plan (1) Vomiting and diarrhea: Plan: She has had nausea/vomiting, and diarrhea for several months, but much worse since starting amiodarone a few days prior to admission. She is also having significantly loud belching that is frequent She is afebrile, HD stable, non-toxic in appearance. She does have a neutrophil predominant leukocytosis possibly reactive. Liver studies, lipase and electrolytes largely unremarkable. CT scan with possible gastritis. No recent antibiotic use. C. difficile stool is negative Diarrhea is improved/resolved with taking Imodium Nausea now almost completely resolved nd belching improved since being on IV Protonix bid -continue treating gastritis with IV PPI twice daily and convert to PPI po bid on discharge -Stool culture, ova and parasites are pending -Continue Imodium as needed for diarrhea -Request GI consultation as per family request-recommends no EGD, continue PPI, add Carafate if needed--> will add Carafate qid today (2) Ventricular bigeminy: Plan: Patient with BiV AICD in place, follows with Dr. Lees. Has around 30% of daily beats as PVCs as per my discussion with cardiology. Is on Metoprolol 75mg po BID. Was tried on Amiodarone but unable to tolerate due to GI side effects. Patient is unwilling to try IV amiodarone or lower dose of oral amiodarone due to significant GI side effects This is likely contributing to her chronic fatigue and dyspnea on exertion -Telemetry monitoring shows frequent ventricular bigeminy -Monitor electrolytes and replete as needed -Continue Metoprolol 75mg po BID -Cardiology consultation appreciated re: additional rhythm control agents vs pacer adjustment versus ablation-we will see if cardiology wants to try a different antiarrhythmic while she is admitted to the hospital -awaiting return of Dr. Lees on Wednesday to decide on next step -family and patient concerned-they request that she not be discharged until a solid plan in place for antiarrhythmic she can tolerate (3) Chronic systolic congestive heart failure: Plan: euvolemic -Continue Metoprolol 75mg po BID -Continue Spironolactone, restart lasix 40mg daily in AM now that diarrhea and vomiting resolved (4) Diabetes mellitus: Plan: Chronic. With hypoglycemia several mornings Daughter reports patient eats a lot more carbohydrates at home than here in the hospital On 01/25, Discontinued Lantus and loosened correction factor, discontinued carbohydrate coverage and glucose now improved Last HgbA1C= 7.1 on 01/02/21 Recommend decreased dose of insulin upon discharge. She eats a lot more carbs at home as per daughter so will likely need some Lantus, but perhaps only Lantus 8 units daily (5) Dyslipidemia: Plan: Chronic -Continue Simvastatin 20mg po daily (6) Hypertension: Plan: Chronic. Well controlled. -Continue Metoprolol and Spironolactone, restart lasix -Continue to monitor (7) Paroxysmal atrial fibrillation: Plan: Ventricular bigeminy as above -Continue Metoprolol 75mg po BID -hold Coumadin today for INR 4.1 -follow INR in the morning (8) Rheumatoid arthritis: Plan: Chronic. Well controlled except having bilateral shoulder pain and left wrist pain the last few days. -received her Methotrexate weekly dose on Sat Continue folic acid Continue on Voltaren gel to the shoulders and wrist Heating pad for the shoulders -add tramadol prn for worsening painin wrist and left shoulder, constant (9) Secondary hyperparathyroidism: Plan: Chronic -Continue Calcitriol 0.25mcg po daily (10) GERD (gastroesophageal reflux disease): Plan: Chronic -Protonix 40mg IV twice daily for possible gastritis and then convert to po bid on discharge (11) CKD (chronic kidney disease): Plan: CKD stage III-IV Creatinine is around baseline at 2.1 -Avoid nephrotoxins -renally dose meds when appropriate -follow BMP (12) Hypophosphatemia: Plan: Replaced and resolved (13) DVT prophylaxis: Plan: Coumadin Disposition-continued stay for further treatment of ventricular bigeminy Discussed her care with her son at the bedside Admission and Anticipated Discharge Date Admission Date: January 25, 2021 Subjective Feeling much better today. Has not had a BM or diarrhea since taking one dose of Imodium 2 days ago. Nausea also almost completely gone. Still feels a" little queasy" Belching is still present but improved greatly. No abd pain, is making urine. Overall feeling better. Has left shoulder pain and left wrist pain ongoing but right shoulder pain is now improved. Tried tramadol today which helped a little bit. Review of Systems Review of Systems: All systems reviewed & are unremarkable except as noted in HPI & below Physical Exam Constitutional: WD/WN, vitals as above Eyes: + anicteric sclerae Neck: trachea midline, no thyromegaly Respiratory: normal respiratory effort, lungs clear to auscultation Cardiovascular: RRR, no murmur, no edema (With frequent ectopy) Chest (Breasts): Chest: normal inspection of chest Gastrointestinal (Abdomen): normal bowel sounds, soft, nontender, no hepatosplenomegaly Musculoskeletal: Extremities: extremities normal to inspection; no cyanosis and no clubbing +TTP over left shoulder and wrist no effusion Skin: no rashes, warm and dry Neurologic: moves all extremities and awake; no focal motor deficits Psychiatric: A+Ox3, euthymic affect Lymphatic: no lymphedema Results & Data Results & Data ([facility]) Vital Signs (Past 12 Hours) Vital Signs Temp Pulse Pulse Resp BP Pulse Ox 01/26/21 15:07 36.8 C 77 18 130/68 93 01/26/21 15:00 79 01/26/21 11:31 36.6 C 86 20 118/75 96 01/26/21 08:09 73 148/79 H 01/26/21 07:00 79 01/26/21 06:56 36.5 C 68 18 136/73 95 Laboratory Results 01/26/21 01/26/21 01/26/21 Range/Units 17:02 11:37 07:47 WBC (4.8-10.8) K/uL RBC (4.2-5.4) M/uL Hgb (12.0-16.0) g/dL Hct (37-47) % MCV (80-100) fL MCH (25-34) pg MCHC (32-36) g/dL RDW Std Deviation (36.4-46.3) fL RDW Coeff of Shai (11.5-14.5) % Plt Count (130-400) K/uL MPV (7.4-10.4) fL Immature Gran % (Auto) % Neut % (Auto) % Lymph % (Auto) % Cocke % (Auto) % Eos % (Auto) % Baso % (Auto) % Neut # (Auto) (1.4-6.5) K/uL Lymph # (Auto) (1.2-3.4) K/uL Cocke # (Auto) (0.11-0.59) K/uL Eos # (Auto) (0-0.5) K/uL Baso # (Auto) (0-0.2) K/uL Immature Gran # (Auto) (0.00-0.02) K/uL PT (9.0-12.0) Seconds INR (0.9-1.1) Sodium (136-145) mmol/L Potassium (3.5-5.1) mmol/L Chloride (98-107) mmol/L Carbon Dioxide (21-32) mmol/L Anion Gap (3-11) BUN (7-18) mg/dl Creatinine (0.6-1.2) mg/dl Est Cr Clr Drug Dosing ml/min Est GFR ( Amer) ml/min Est GFR (Non-Af Amer) ml/min BUN/Creatinine Ratio (10-20) Glucose (70-99) mg/dl POC Glucose 115 H 129 H 97 (70-99) mg/dl Calcium (8.5-10.1) mg/dl Phosphorus (2.5-4.9) mg/dl Magnesium (1.8-2.4) mg/dl 01/26/21 01/26/21 01/26/21 Range/Units 07:43 07:43 07:43 WBC 7.13 (4.8-10.8) K/uL RBC 3.95 L (4.2-5.4) M/uL Hgb 12.4 (12.0-16.0) g/dL Hct 37.5 (37-47) % MCV 94.9 (80-100) fL MCH 31.4 (25-34) pg MCHC 33.1 (32-36) g/dL RDW Std Deviation 52.8 H (36.4-46.3) fL RDW Coeff of Shai 15.5 H (11.5-14.5) % Plt Count 187 (130-400) K/uL MPV 9.8 (7.4-10.4) fL Immature Gran % (Auto) 0.1 % Neut % (Auto) 64.9 % Lymph % (Auto) 21.2 % Cocke % (Auto) 11.9 % Eos % (Auto) 1.8 % Baso % (Auto) 0.1 % Neut # (Auto) 4.62 (1.4-6.5) K/uL Lymph # (Auto) 1.51 (1.2-3.4) K/uL Cocke # (Auto) 0.85 H (0.11-0.59) K/uL Eos # (Auto) 0.13 (0-0.5) K/uL Baso # (Auto) 0.01 (0-0.2) K/uL Immature Gran # (Auto) 0.01 (0.00-0.02) K/uL PT 37.1 H (9.0-12.0) Seconds INR 4.1 H (0.9-1.1) Sodium 138 (136-145) mmol/L Potassium 4.0 (3.5-5.1) mmol/L Chloride 111 H (98-107) mmol/L Carbon Dioxide 21 (21-32) mmol/L Anion Gap 6.0 (3-11) BUN 41 H (7-18) mg/dl Creatinine 2.04 H (0.6-1.2) mg/dl Est Cr Clr Drug Dosing 23.4 ml/min Est GFR ( Amer) 25.5 ml/min Est GFR (Non-Af Amer) 22.0 ml/min BUN/Creatinine Ratio 20.2 H (10-20) Glucose 88 (70-99) mg/dl POC Glucose (70-99) mg/dl Calcium 8.5 (8.5-10.1) mg/dl Phosphorus 2.6 (2.5-4.9) mg/dl Magnesium 2.4 (1.8-2.4) mg/dl 01/26/21 01/26/21 01/26/21 Range/Units 05:03 02:26 02:08 WBC (4.8-10.8) K/uL RBC (4.2-5.4) M/uL Hgb (12.0-16.0) g/dL Hct (37-47) % MCV (80-100) fL MCH (25-34) pg MCHC (32-36) g/dL RDW Std Deviation (36.4-46.3) fL RDW Coeff of Shai (11.5-14.5) % Plt Count (130-400) K/uL MPV (7.4-10.4) fL Immature Gran % (Auto) % Neut % (Auto) % Lymph % (Auto) % Cocke % (Auto) % Eos % (Auto) % Baso % (Auto) % Neut # (Auto) (1.4-6.5) K/uL Lymph # (Auto) (1.2-3.4) K/uL Cocke # (Auto) (0.11-0.59) K/uL Eos # (Auto) (0-0.5) K/uL Baso # (Auto) (0-0.2) K/uL Immature Gran # (Auto) (0.00-0.02) K/uL PT (9.0-12.0) Seconds INR (0.9-1.1) Sodium (136-145) mmol/L Potassium (3.5-5.1) mmol/L Chloride (98-107) mmol/L Carbon Dioxide (21-32) mmol/L Anion Gap (3-11) BUN (7-18) mg/dl Creatinine (0.6-1.2) mg/dl Est Cr Clr Drug Dosing ml/min Est GFR ( Amer) ml/min Est GFR (Non-Af Amer) ml/min BUN/Creatinine Ratio (10-20) Glucose (70-99) mg/dl POC Glucose 83 80 73 (70-99) mg/dl Calcium (8.5-10.1) mg/dl Phosphorus (2.5-4.9) mg/dl Magnesium (1.8-2.4) mg/dl 01/26/21 01/25/21 Range/Units 01:59 20:14 WBC (4.8-10.8) K/uL RBC (4.2-5.4) M/uL Hgb (12.0-16.0) g/dL Hct (37-47) % MCV (80-100) fL MCH (25-34) pg MCHC (32-36) g/dL RDW Std Deviation (36.4-46.3) fL RDW Coeff of Shai (11.5-14.5) % Plt Count (130-400) K/uL MPV (7.4-10.4) fL Immature Gran % (Auto) % Neut % (Auto) % Lymph % (Auto) % Cocke % (Auto) % Eos % (Auto) % Baso % (Auto) % Neut # (Auto) (1.4-6.5) K/uL Lymph # (Auto) (1.2-3.4) K/uL Cocke # (Auto) (0.11-0.59) K/uL Eos # (Auto) (0-0.5) K/uL Baso # (Auto) (0-0.2) K/uL Immature Gran # (Auto) (0.00-0.02) K/uL PT (9.0-12.0) Seconds INR (0.9-1.1) Sodium (136-145) mmol/L Potassium (3.5-5.1) mmol/L Chloride (98-107) mmol/L Carbon Dioxide (21-32) mmol/L Anion Gap (3-11) BUN (7-18) mg/dl Creatinine (0.6-1.2) mg/dl Est Cr Clr Drug Dosing ml/min Est GFR ( Amer) ml/min Est GFR (Non-Af Amer) ml/min BUN/Creatinine Ratio (10-20) Glucose (70-99) mg/dl POC Glucose 68 L* 120 H (70-99) mg/dl Calcium (8.5-10.1) mg/dl Phosphorus (2.5-4.9) mg/dl Magnesium (1.8-2.4) mg/dl PG Care Time/CCT Total # of Minutes Spent Total Time Spent with Patient: Total time spent is greater than 50% in coordination of care (as documented) at patient's floor/unit and/or counseling patient: Coding Level of Care Code 78914 Subseq Hosp Care Lvl 2 Diagnoses Vomiting and diarrhea R11.10; R19.7 Ventricular bigeminy I49.8 Chronic systolic congestive heart failure I50.22 Diabetes mellitus E11.9 Dyslipidemia E78.5 Hypertension I10 Paroxysmal atrial fibrillation I48.0 Rheumatoid arthritis M06.9 Secondary hyperparathyroidism N25.81 GERD (gastroesophageal reflux disease) K21.9 CKD (chronic kidney disease) N18.9 Hypophosphatemia E83.39 DVT prophylaxis Z29.9
[2021-01-27 07:10] LABS: INR 3.4 (0.9-1.1); Prothrombin Time 30.9 Seconds (9.0-12.0)
[2021-01-27 07:27] LABS: BUN Creatinine Ratio 19.1 (10-20); Calcium 8.5 mg/dl (8.5-10.1); Creatinine Clr Calc Pharmacy 25.9 ml/min; Est GFR (African American) 27.8 ml/min; Potassium 4.3 mmol/L (3.5-5.1)
[2021-01-27] MEDS: SUCRALFATE 1 GM/10 ML UDC PO SCH ×4 (07:57→20:12)
[2021-01-27] MEDS: FOLIC ACID 1 MG TAB PO SCH (08:01)
[2021-01-27] MEDS: CALCITRIOL 0.25 MCG CAPSULE PO SCH (08:01)
[2021-01-27] MEDS: METOPROLOL SUCC 25MG EXT REL TAB PO SCH ×2 (08:01→20:12)
[2021-01-27] MEDS: SIMVASTATIN 20 MG TAB PO SCH (08:01)
[2021-01-27] MEDS: SPIRONOLACTONE 25 MG TAB PO SCH (08:01)
[2021-01-27] MEDS: PANTOprazole 40 MG in SYRINGE 0 ML IV SCH ×2 (08:02→20:20)
--- NOTE | 2021-01-27 08:29 | Cardiology Progress Note ---
Date of Service January 27, 2021 Assessment & Plan (1) Vomiting and diarrhea: (2) Frequent PVCs: Plan: 1. Vomiting and diarrhea: This preceded starting amiodarone, initially in the office she was complaining of diarrhea and gas although on presentation here she reports having nausea and vomiting preceding amiodarone therapy. The symptoms seem to have resolved with Protonix administration, although she is worried about going through that again. 2. Frequent PVCs: I am concerned that her PVCs are affecting her cardiac output which is probably causing a lot of her exertional symptoms, it may be affecting her kidney perfusion and it may not be good for her left ventricular function over the long run. I think we are going to need to address them, beta-jeffery sometimes work but she is already on fairly high doses (150 mg daily of metoprolol succinate). Amiodarone still may work, the GI symptoms are usually dose related and I did start her at 600 mg daily so it would not take too long to see whether it works. I discussed with her the possibility of intravenous amiodarone, it typically does not cause nausea although it could but it is unlikely it would recreate her clinical situation which was most likely a combination of amiodarone and her reflux or gastritis. If it works then we could switch to low-dose oral amiodarone which would take a long time but would be the best option. She is not certain ablation. Other antiarrhythmics are less effective although we could consider them. Admission and Anticipated Discharge Date Admission Date: January 25, 2021 Subjective She is feeling much better as far as nausea goes, she is eating breakfast and not having nausea. Physical Exam Physical Exam: Constitutional: Alert, cooperative and in no distress. HEENT: Unremarkable Neck: No jugular venous distention, carotid pulses are normal and equal bilaterally without bruits. Pulmonary: Clear to auscultation bilaterally. Cardiac: Regular rhythm with a bigeminal rhythm, no murmur, gallop or rub. Abdomen: Soft, nontender with normal bowel sounds. Extremities: +1 bilateral pedal edema. Distal pulses intact. Neurologic: No focal findings. Gait is steady but slow. Skin: No rash, ecchymoses or petechiae. The ICD site is well-healed without erythema, swelling or tenderness. Results & Data ([facility]) Vital Signs (Past 12 Hours) Vital Signs Temp Pulse Pulse Pulse Resp BP Pulse Ox 01/27/21 07:56 64 135/87 01/27/21 07:00 81 01/27/21 06:56 36.8 C 78 20 132/68 92 01/27/21 03:29 36.9 C 84 20 128/80 90 01/26/21 23:30 36.6 C 68 18 132/68 96 01/26/21 23:29 76 Laboratory Results Coagulation 01/26/21 01/27/21 Range/Units 07:43 06:08 PT 37.1 H 30.9 H (9.0-12.0) Seconds Comprehensive Metabolic Panel 01/26/21 01/27/21 Range/Units 07:43 06:08 Sodium 138 141 (136-145) mmol/L Potassium 4.0 4.3 (3.5-5.1) mmol/L Chloride 111 H 112 H (98-107) mmol/L Carbon Dioxide 21 24 (21-32) mmol/L BUN 41 H 36 H (7-18) mg/dl Creatinine 2.04 H 1.90 H (0.6-1.2) mg/dl Glucose 88 84 (70-99) mg/dl Calcium 8.5 8.5 (8.5-10.1) mg/dl Intake and Output 01/26/21 01/27/21 01/27/21 22:59 06:59 14:59 Intake Total 320 / 1655 320 / 1655 Balance 320 / 1655 320 / 1655 Intake: Oral 320 / 1655 320 / 1655 Other: Weight 94.2 kg Weight Measurement Method Standing Scale Diagnostic Findings Telemetry: Sinus rhythm with frequent PVCs PG Care Time/CCT Total # of Minutes Spent Total Time Spent with Patient: Total time spent is greater than 50% in coordination of care (as documented) at patient's floor/unit and/or counseling patient: Coding Level of Care Code 68293 Subseq Hosp Care Lvl 2 Diagnoses Vomiting and diarrhea R11.10; R19.7 Frequent PVCs I49.3
[2021-01-27] MEDS ORDERED: 0.2 MICRON FILTER SET 1 EA IV ONE (08:30)
[2021-01-27] MEDS ORDERED: AMIODARONE IV BOLUS & DRIP IV STA (08:30)
[2021-01-27] MEDS ORDERED: STAT IV Infusion **Titration per Protocol STA (08:30)
[2021-01-27] MEDS ORDERED: AMIODARONE / D5W 150 MG/100 ML BAG IV STA ×2 (08:30→16:03)
[2021-01-27] MEDS ORDERED: AMIODARONE / D5W 360 MG/200 ML BAG IV ONE ×2 (08:40→16:15)
[2021-01-27] MEDS: DICLOFENAC SOD 1% GEL 100 GM TUBE EXT SCH ×4 (09:24→20:07)
[2021-01-27] MEDS: FUROSEMIDE 40 MG TAB PO SCH (09:53)
[2021-01-27] MEDS: INSULIN ASPART 100 UNITS/ML 3 ML PEN SC SCH ×4 (09:55→20:19)
--- NOTE | 2021-01-27 13:26 | Gastroenterology Progress Note ---
Date of Service January 27, 2021 Assessment & Plan (1) Nausea: Plan: May be secondary to tocilizumab. Amiodorone also causes nausea. Gastritis (on CT) which is likely secondary to prior vomiting or from prednisone, diclofenac, methotrexate. If symptoms recur and persist then suggest EGD, colonoscopy. [facility] Consider an OP GI referral to [facility]. Consider discontinuing tocilizumab. Would discharge on a BID PPI x 1 month then daily; plus Carafate prn. GI will sign off. Present on Admission?: Yes Admission and Anticipated Discharge Date Admission Date: January 25, 2021 Supervising Physician Co-Signing Physician Notes I saw and evaluated the patient. I did have a long discussion with the patient and she wonders if her symptoms correlate with onset of use of Tocilizumab. Review of the medication shows that this is a common cause of nausea in patients. I did discuss the role of upper endoscopy and colonoscopy with the patient, she would presently like to hold on this for the present time. The patient also notes having some problems with constipation. Of note she did initially present with diarrhea. I wonder if this could be related to medication but suggested trial of MiraLAX twice daily for 5 days and then 1 time daily thereafter Recommendations Consider stopping the Tocilizumab Consider use of MiraLAX twice daily for 5 days then 1 time daily thereafter Please call with any questions or concerns GI to sign off Subjective Ms. Taylor is an 85 yr old female pt of Neftaly Allison, with a hx of CAD/CHF on amiodarone, CKD, RA on methotrexate and prednisone, admitted for nausea/vomiting/diarrhea, resolved since arrival on 01/23/21. She tells me that she believes her new infusion med for RhArthritis causes the episodes of nausea, vomiting. (Tacilozumab). Review of Systems Review of Systems: ROS: Gen: Denies weakness, fevers, weight loss Eyes: No eye redness, or pain, no recent vision changes Resp: No SOB, no cough Cardio: No palpitations/irregular beats, no chest pain GI: No abdominal pain, no nausea/vomiting : Denies pain on urination Skin: No jaundice, itching or new rashes Physical Exam Constitutional: WD/WN, vitals as above + overweight Eyes: PERRL, conjunctivae normal, anicteric sclerae ENMT: external ear and nose normal, oropharynx normal Neck: trachea midline, no thyromegaly Respiratory: normal respiratory effort, lungs clear to auscultation Cardiovascular: RRR, no murmur, no edema Chest (Breasts): normal inspection/palpation of breasts Gastrointestinal (Abdomen): normal bowel sounds, soft, nontender, no hepatosplenomegaly Musculoskeletal: no cyanosis or clubbing, extremities motor strength 5/5 Skin: no rashes, warm and dry Neurologic: PERRL, EOMI, accommodation nl, no face palsy, no dysarthria Psychiatric: A+Ox3, euthymic affect Lymphatic: no cervical or axillary lymphadenopathy Results & Data ([facility]) Vital Signs (Past 12 Hours) Vital Signs Temp Pulse Pulse Pulse Resp BP BP 01/27/21 11:45 36.4 C L 81 20 134/84 01/27/21 09:53 71 134/76 01/27/21 07:56 64 135/87 01/27/21 07:00 81 01/27/21 06:56 36.8 C 78 20 132/68 01/27/21 03:29 36.9 C 84 20 128/80 Pulse Ox 01/27/21 11:45 96 01/27/21 09:53 01/27/21 07:56 01/27/21 07:00 01/27/21 06:56 92 01/27/21 03:29 90 Laboratory Results INR 3.4; Na 141, K 4.3, BUN 36, Cr 1.9. Diagnostic Findings Non contrast CTAP 01/22/21: 1. Significantly suboptimal examination without oral and IV contrast 2. The gastric wall appears thickened. This is not well assessed by CT, and could potentially be seen in the setting of gastritis. Clinical correlation will be required. Endoscopy could be considered for further assessment. 3. Question a decubitus ulcer overlying the right ischial tuberosity. This could also represent a prominent skinfold and correlation with direct visualization will required. 4. Advanced colonic diverticulosis without CT evidence of acute diverticulitis. 5. Additional findings as above.
--- NOTE | 2021-01-27 15:52 | Hospitalist Progress Note ---
Date of Service January 27, 2021 Assessment & Plan (1) Vomiting and diarrhea: Plan: She has had nausea/vomiting, and diarrhea for several months, but much worse since starting amiodarone a few days prior to admission. She is also having significantly loud belching that is frequent She is afebrile, HD stable, non-toxic in appearance. She does have a neutrophil predominant leukocytosis possibly reactive. Liver studies, lipase and electrolytes largely unremarkable. CT scan with possible gastritis. No recent antibiotic use. C. difficile stool is negative Diarrhea is improved/resolved with taking Imodium Nausea now almost completely resolved nd belching improved since being on IV Protonix bid -continue treating gastritis with IV PPI twice daily and convert to PPI po bid on discharge -Stool culture, ova and parasites are pending -Continue Imodium as needed for diarrhea -Request GI consultation as per family request-recommends no EGD, continue PPI, add Carafate if needed--> Added Carafate qid on 01/26. Improving. (2) Ventricular bigeminy: Plan: Patient with BiV AICD in place, follows with Dr. Lees. Has around 30% of daily beats as PVCs as per my discussion with cardiology. Is on Metoprolol 75mg po BID. Was tried on Amiodarone but unable to tolerate due to GI side effects. Patient is unwilling to try IV amiodarone or lower dose of oral amiodarone due to significant GI side effects This is likely contributing to her chronic fatigue and dyspnea on exertion -Telemetry monitoring shows frequent ventricular bigeminy -Monitor electrolytes and replete as needed -Continue Metoprolol 75mg po BID -Cardiology consultation appreciated re: additional rhythm control agents vs pacer adjustment versus ablation-we will see if cardiology wants to try a different antiarrhythmic while she is admitted to the hospital -Plan for amiodarone IV today and then a lower oral dose starting tomorrow. Patient will discuss with , but feels this is a good plan. (3) Chronic systolic congestive heart failure: Plan: euvolemic -Continue Metoprolol 75mg po BID -Continue Spironolactone, restart lasix 40mg daily in AM now that diarrhea and vomiting resolved (4) Diabetes mellitus: Plan: Chronic. With hypoglycemia several mornings Daughter reports patient eats a lot more carbohydrates at home than here in the hospital On 01/25, discontinued Lantus and loosened correction factor, discontinued carbohydrate coverage and glucose now improved Last HgbA1C= 7.1 on 01/02/21 Recommend decreased dose of insulin upon discharge. She eats a lot more carbs at home as per daughter so will likely need some Lantus, but perhaps only Lantus 8 units daily (5) Dyslipidemia: Plan: Chronic -Continue Simvastatin 20mg po daily (6) Hypertension: Plan: Chronic. Well controlled. -Continue Metoprolol and Spironolactone, restart lasix -Continue to monitor (7) Paroxysmal atrial fibrillation: Plan: Ventricular bigeminy as above -Continue Metoprolol 75mg po BID -hold Coumadin today for INR 4.1 -follow INR in the morning -> Now down to 3.4. Hold for one more day. Can likely resume tomorrow. (8) Rheumatoid arthritis: Plan: Chronic. Well controlled except having bilateral shoulder pain and left wrist pain the last few days. -received her Methotrexate weekly dose on Sat Continue folic acid Continue on Voltaren gel to the shoulders and wrist Heating pad for the shoulders -add tramadol prn for worsening painin wrist and left shoulder, constant (9) Secondary hyperparathyroidism: Plan: Chronic -Continue Calcitriol 0.25mcg po daily (10) GERD (gastroesophageal reflux disease): Plan: Chronic -Protonix 40mg IV twice daily for possible gastritis and then convert to po bid on discharge (11) CKD (chronic kidney disease): Plan: CKD stage III-IV Creatinine is around baseline at 2.1 -Avoid nephrotoxins -renally dose meds when appropriate -follow BMP -> Cr on 01/27 was 1.9, at baseline. (12) Hypophosphatemia: Plan: Replaced and resolved (13) DVT prophylaxis: Plan: Coumadin Disposition-continued stay for further treatment of ventricular bigeminy Admission and Anticipated Discharge Date Admission Date: January 25, 2021 Subjective No major issues today. Reports no fevers/chills, chest pain, shortness of breath, abdominal pain, nausea, or vomiting. Physical Exam Constitutional: WD/WN, vitals as above Eyes: EOM intact bilaterally; no conjunctival abnormality ENMT: external ear and nose normal, oropharynx normal Neck: trachea midline, no thyromegaly normal visual inspection Respiratory: normal respiratory effort, lungs clear to auscultation no respiratory distress Cardiovascular: RRR, no murmur, no edema Gastrointestinal (Abdomen): Inspection/Auscultation: abdomen normal to inspection; abdomen not distended Musculoskeletal: no cyanosis or clubbing, extremities motor strength 5/5 Skin: no rashes, warm and dry Neurologic: moves all extremities and awake Psychiatric: Orientation: alert, oriented to person and cooperative Results & Data Results & Data ([facility]) Vital Signs (Past 12 Hours) Vital Signs Temp Pulse Pulse Pulse Resp BP BP 01/27/21 11:45 36.4 C L 81 20 134/84 01/27/21 09:53 71 134/76 01/27/21 07:56 64 135/87 01/27/21 07:00 81 01/27/21 06:56 36.8 C 78 20 132/68 Pulse Ox 01/27/21 11:45 96 01/27/21 09:53 01/27/21 07:56 01/27/21 07:00 01/27/21 06:56 92 PG Care Time/CCT Total # of Minutes Spent Total Time Spent with Patient: Total time spent is greater than 50% in coordination of care (as documented) at patient's floor/unit and/or counseling patient: Coding Level of Care Code 81647 Subseq Hosp Care Lvl 2 Diagnoses Vomiting and diarrhea R11.10; R19.7 Ventricular bigeminy I49.8 Chronic systolic congestive heart failure I50.22 Diabetes mellitus E11.9 Dyslipidemia E78.5 Hypertension I10 Paroxysmal atrial fibrillation I48.0 Rheumatoid arthritis M06.9 Secondary hyperparathyroidism N25.81 GERD (gastroesophageal reflux disease) K21.9 CKD (chronic kidney disease) N18.9 Hypophosphatemia E83.39 DVT prophylaxis Z29.9
[2021-01-27] MEDS: AMIODARONE / D5W 360 MG/200 ML BAG IV SCH (22:20)
[2021-01-27] MEDS: LORazepam 0.5 MG TAB PO PRN (22:35)
[2021-01-28 05:40] LABS: Hematocrit (blood only) 39.7 % (37-47); Hemoglobin 13.4 g/dL (12.0-16.0); Mean Corpuscular Hemoglobin 31.8 pg (25-34); Mean Corpuscular Hgb Conc 33.8 g/dL (32-36); Mean Corpuscular Volume 94.3 fL (80-100); Mean Platelet Volume 9.2 fL (7.4-10.4); Platelet Count 219 K/uL (130-400); RDW Coefficient of Variation 15.6 % (11.5-14.5); RDW Standard Deviation 52.7 fL (36.4-46.3); Red Blood Count 4.21 M/uL (4.2-5.4); White Blood Count 5.11 K/uL (4.8-10.8)
[2021-01-28 05:49] LABS: INR 2.1 (0.9-1.1); Prothrombin Time 19.7 Seconds (9.0-12.0)
[2021-01-28 06:14] LABS: BUN Creatinine Ratio 20.7 (10-20); Calcium 8.5 mg/dl (8.5-10.1); Est GFR (Non-African American) 20.8 ml/min
[2021-01-28] MEDS: FUROSEMIDE 40 MG TAB PO SCH (07:50)
[2021-01-28] MEDS: METOPROLOL SUCC 25MG EXT REL TAB PO SCH (07:50)
[2021-01-28] MEDS: SUCRALFATE 1 GM/10 ML UDC PO SCH ×2 (07:50→12:30)
[2021-01-28] MEDS: CALCITRIOL 0.25 MCG CAPSULE PO SCH (07:51)
[2021-01-28] MEDS: SIMVASTATIN 20 MG TAB PO SCH (07:51)
[2021-01-28] MEDS: DICLOFENAC SOD 1% GEL 100 GM TUBE EXT SCH ×2 (07:51→12:29)
[2021-01-28] MEDS: FOLIC ACID 1 MG TAB PO SCH (07:51)
[2021-01-28] MEDS: SPIRONOLACTONE 25 MG TAB PO SCH (07:51)
[2021-01-28] MEDS: PANTOprazole 40 MG in SYRINGE 0 ML IV SCH (07:54)
[2021-01-28] MEDS: INSULIN ASPART 100 UNITS/ML 3 ML PEN SC SCH ×2 (07:56→12:17)
[2021-01-28] MEDS: AMIODARONE / D5W 360 MG/200 ML BAG IV SCH (10:43)
--- NOTE | 2021-01-28 11:37 | Cardiology Progress Note ---
Date of Service January 28, 2021 Assessment & Plan (1) Vomiting and diarrhea: (2) Frequent PVCs: Plan: 1. Vomiting and diarrhea: This preceded starting amiodarone, initially in the office she was complaining of diarrhea and gas although on presentation here she reports having nausea and vomiting preceding amiodarone therapy. The symptoms seem to have resolved with Protonix administration, although she is worried about going through that again. They have not recurred on IV amiodarone. 2. Frequent PVCs: I am concerned that her PVCs are affecting her cardiac output which is probably causing a lot of her exertional symptoms, it may be affecting her kidney perfusion and it may not be good for her left ventricular function over the long run. I think we are going to need to address them, beta-jeffery sometimes work but she is already on fairly high doses (150 mg daily of metoprolol succinate). Amiodarone IV for about 24 hours was not very successful, there may have been a slight decrease in frequency but not enough that I think this will be a beneficial long-term solution. We could try other antiarrhythmics but they are not likely to work. I think the best option is ablation, we can discuss that at a future date. At this point I would discontin ue the IV amiodarone, I did increase her pacing rate to 80 bpm which should make her feel little better by shortening the post PVC interval but this is not a good long-term solution either although for the short-term it should be acceptable since her left ventricular function is normal. I would increase her metoprolol to 200 mg daily, that can be in divided doses, and this may help somewhat with the PVCs. As far as I am concerned she can go home today, I will arrange follow-up visit next week. Admission and Anticipated Discharge Date Admission Date: January 25, 2021 Subjective Physically she is feeling well although she is not tolerating the hospitalization very well, especially the ICU. She remains relatively unaware of her palpitations. She is not having difficulty on IV amiodarone with no nausea and she is able to eat. Physical Exam Physical Exam: Constitutional: Alert, cooperative and in no distress. HEENT: Unremarkable Neck: No jugular venous distention, carotid pulses are normal and equal bilaterally without bruits. Pulmonary: Clear to auscultation bilaterally. Cardiac: Regular rhythm with a bigeminal rhythm, no murmur, gallop or rub. Abdomen: Soft, nontender with normal bowel sounds. Extremities: +1 bilateral pedal edema. Distal pulses intact. Neurologic: No focal findings. Gait is steady but slow. Skin: No rash, ecchymoses or petechiae. The ICD site is well-healed without erythema, swelling or tenderness. Results & Data ([facility]) Vital Signs (Past 12 Hours) Vital Signs Temp Pulse Pulse Resp BP BP Pulse Ox 01/28/21 07:30 36.7 C 86 18 139/65 94 01/28/21 07:20 79 22 01/28/21 07:10 89 22 01/28/21 07:00 77 12 01/28/21 00:11 37.1 C 80 14 110/78 93 01/28/21 00:05 75 Laboratory Results Coagulation 01/28/21 Range/Units 05:30 PT 19.7 H (9.0-12.0) Seconds CBC 01/28/21 Range/Units 05:30 WBC 5.11 (4.8-10.8) K/uL RBC 4.21 (4.2-5.4) M/uL Hgb 13.4 (12.0-16.0) g/dL Hct 39.7 (37-47) % Plt Count 219 (130-400) K/uL Comprehensive Metabolic Panel 01/28/21 Range/Units 05:30 Sodium 138 (136-145) mmol/L Potassium 4.0 (3.5-5.1) mmol/L Chloride 108 H (98-107) mmol/L Carbon Dioxide 25 (21-32) mmol/L BUN 44 H (7-18) mg/dl Creatinine 2.14 H (0.6-1.2) mg/dl Glucose 108 H (70-99) mg/dl Calcium 8.5 (8.5-10.1) mg/dl Intake and Output 01/27/21 01/28/21 01/28/21 22:59 06:59 14:59 Intake Total 300.000 / 1580.000 240 / 1580.000 200.000 / 200.000 Balance 300.000 / 1580.000 240 / 1580.000 200.000 / 200.000 Intake: IV 300.000 / 300.000 200.000 / 200.000 Amiodarone / D5w 150 mg In 100 100 / 100 ml @ 600 mls/hr IV NOW STA Rx#: [id number] Amiodarone / D5w 360 mg In 200 200.000 / 200.000 200.000 / 200.000 ml @ 0.5 MG/MIN 16.667 mls/hr IV .Q12H [facility] Rx#:[id number] Oral 240 / 1280 Other: # Unmeasured Voids 2 2 PG Care Time/CCT Total # of Minutes Spent Total Time Spent with Patient: Total time spent is greater than 50% in coordination of care (as documented) at patient's floor/unit and/or counseling patient: Coding Level of Care Code 03372 Subseq Hosp Care Lvl 2 Diagnoses Vomiting and diarrhea R11.10; R19.7 Frequent PVCs I49.3 CPT Codes Implantable Defib Multi lead programming - [id number] ([id number])
[2021-01-28] MEDS: LORazepam 0.5 MG TAB PO PRN (12:29)
--- NOTE | 2021-01-28 13:22 | Discharge Summary ---
Date of Service January 28, 2021 Admission HPI Per Admitting Provider Cary Taylor is an 85yo female with multiple medical problems to include steroid dependent RA, DM, HTN, HLP, CHF secondary to NICM with EF of 55-60% per echo 11/[address] in place as well as paroxysmal atrial fibrillation. Patient reports several months of weakness, fatigue, decreased exercise tolerance as well as generalized abdominal pain, nausea/vomiting and diarrhea. She has has not tolerated oral intake for several days. She reports SOB and CARRILLO but denies edema/orthopnea/weight gain. Patient was seen in the ER with similar complaint on 12/12/20 and had a negative workup. Patient was contacted by [facility]iology on 01/20 due to concern for some problems with her device, possible volume overload. She follows with Dr. Lees. Per his note on 01/20/21 she has had freaquent PVCs noted by pacemaker as well as EKG which have been interfering with her pacing. She is presently in ventricular bigeminy, has had HR in the 40's although her device is set to 60. Patient was seen by Dr. eLes on 01/20/21 and was started on low dose oral Amiodarone to control ventricular dysrhythmia and improve output. Unfortunately she developed severe nausea with several episodes of non-bloody/non-bilious vomiting as well as multiple episodes of diarrhea. ER Course: Maalox, Zofran, NSS Admission Exam Per Admitting Provider General: patient resting comfortably, NAD, non-toxic in appearance, AA&O x 4 Skin: warm, dry, intact, no rashes or lesions HEENT: NC/AT, PERRL, EOMI, anicteric sclera, conjunctiva without injection, external ear normal to inspection and nontender, nares patent, moist mucus membranes, dentition intact, no oropharyngeal lesions, neck supple, trachea midline, no LAD, no thyromegaly, no JVD Heart: +S1/S2, regular with episodes of regularly irregular rhythm corresponding to ventricular bigeminy on monitor, no m/r/g Lungs: equal air entry bilaterally, crackles in bilateral bases, no rhonchi/wheezes Abd: +BS, soft, ND, mildly tender in LLQ with no rebound/guarding, peritoneal signs, no masses/organomegaly/ascites Ext: warm, 2+ pulses in UE/LE bilaterally, no clubbing/cyanosis or edema Neuro: nonfocal, patient AA&O x 4, speech intact, no facial droop, moving all extremities on command with equal strength 5/5 Principal Diagnosis Atrial fibrillation Discharge Exam GENERAL : No acute distress EYES: No icterus, gaze conjugate NOSE: No evidence of epistaxis MOUTH: No lesions or candidiasis NECK: Supple LUNGS: CTA B/L, no wheezes, rales or rhonchi HEART: Irregular, irregular with a heart rate of 85 bpm ABDOMEN: Soft, NT, ND, BS Present EXTREMITIES: No LE edema, pedal pulses intact NEURO: A&OX3 Discharge Data Allergies Allergy/AdvReac Type Severity Reaction Status Date / Time aspirin AdvReac Unknown history of Verified 01/22/21 18:52 ulcers nortriptyline AdvReac Unknown DOESN'T Verified 01/22/21 18:52 REMEMBER Consultations 01/23/21 00:00 ED Decision to Admit Stat 01/23/21 00:55 Consult Cardiology Routine 01/25/21 15:28 Consult Gastroenterology Routine Ordered Studies 01/22/21 19:17 CT Abd and Pelvis [CT abd pelvis wo con] Stat Hospital Course (1) Paroxysmal atrial fibrillation: Patient with ventricular bigeminy Patient was at 75 mg of Toprol-XL at home as well as amiodarone Patient developed severe nausea vomiting diarrhea It is suspected that this may have been caused by the oral amiodarone Patient was given IV amiodarone while inpatient with little effect and persistent PVCs Patient is being discharged with an increase of Toprol-XL from 75 mg daily to 200 mg daily ICD pacer was adjusted to 80 bpm Patient will follow up with Dr. Lees in the outpatient office setting next week for discussion of atrial ablation The patient was given a handout on atrial ablation to review to formulate questions for Dr. Lees next week. Risk of stroke with heart rate over 100 bpm for prolonged period discussed with patient. They were instructed to call the deaf/hard of hearing specialist or primary care physician in the event the tachycardia was noted. (2) Biventricular ICD (implantable cardioverter-defibrillator) in place: Rate was increased to [address] Lees prior to discharge Further management outpatient (3) Vomiting and diarrhea: Is now resolved. Patient was on amiodarone which could have vomiting diarrhea sequela Patient is also on Tocilizumab for arthritis. This could also be the culprit Discussed this with the patient. For now we will continue with the tocilizumab and discuss with physician gynecologist (4) Ventricular bigeminy: ICD defibrillator/pacer in place Metoprolol increased from 75 mg daily 200 mg daily Outpatient follow-up for discussion of ablation with Dr. Lees (5) Chronic systolic congestive heart failure: Discharge on home dose of Aldactone and furosemide (6) CKD (chronic kidney disease): Baseline Creatinine on day of discharge was 2.14 (7) Diabetes mellitus: Discharge home on Lantus and insulin lispro Discussed with daughter that it may be a good idea to follow-up with endocrinology due to patient's advanced age and diet (8) Dyslipidemia: Continue simvastatin (9) Hypertension: Metoprolol tartrate increased from 75 mg to 200 mg daily Further management per cardiology as an outpatient (10) Rheumatoid arthritis: Outpatient management by rheumatology Patient is on methotrexate and tocilizumab (11) Secondary hyperparathyroidism: Continue Calcitrol (12) GERD (gastroesophageal reflux disease): Change from omeprazole daily to pantoprazole 40 mg p.o. twice daily until seen by gastroenterology Recommend follow-up with Dr. Guallpa or Dr. Pagan for EGD and/or colonoscopy (13) DVT prophylaxis: Patient chronically anticoagulated with warfarin INR on day of discharge was 2.1 Total Time Total Time Spent Total Time Spent (In Minutes): 60 Discharge Plan Discharge Items Patient Disposition: Home - Self-Care Reason For Visit: WEAKNESS, FATIGUE Discharge Diagnosis: Nausea, fatigue, weakness Atrial fibrillation Activity: Resume your previous activity Lifting: Gradually increase as tolerated Bathing: No limitations Exercise/Sports: Gradually increase as tolerated Weightbearing: Full weightbearing Non-emergency contact: Primary Care Provider and Courtroom Deputy Or Calendar Clerk Call non-emergency contact if: you have any medication questions and your symptoms worsen Follow-up/Referrals: Heber Lees MD [Physician] - 02/06/21 2:00 pm Neftaly Allison III, CRNP [Primary Care Provider] - Diet: Carb Consistent or DM2 and Heart Healthy Addtl Attending Provider Instructions: You were admitted with weakness, nausea and vomiting, fatigue. The symptoms can sometimes be attributed to the amiodarone that you are on. They could also be attributed to an arrhythmia which is when your heart is not in normal sinus rhythm. The amiodarone is being discontinued and you are being sent home on a higher dose of Toprol-XL (metoprolol succinate). Your pacemaker/ICD was adjusted by Dr. Lees to help keep your heart rate lower to avoid increased risk of stroke. You should continue take your Coumadin (warfarin) until told to discontinue it by Dr. Lees. If you notice that your heart rate is above 100 bpm for prolonged period, call Dr. Lees's office or your primary care physician for evaluation. Dr. Lees's office should call you with an appointment in the next 10 days. It was also noted that you have some gastritis on imaging. You are being discharged home on pantoprazole (Protonix) 40 mg by mouth twice daily. Please continue this until seen by gastroenterology. She should call and schedule an appointment with Dr. Guallpa or Dr. Pagan with the [facility] gastroenterology team for consideration of EGD and/or colonoscopy. Please take all medications as prescribed. Please review the handouts on atrial ablation, endoscopy, colonoscopy. Pending Studies at Discharge: No Stand-Alone Forms: My [facility] Medications and DC Order Prescriptions: New diclofenac sodium [Voltaren Arthritis Pain] 1 % Gel 2 g EXT QID Qty: 100 RF: 0 sucralfate 100 mg/mL Suspension 3 g PO QID Qty: 420 RF: 0 pantoprazole [Protonix] 40 mg tablet,delayed release (DR/EC) 40 mg PO BID Qty: 60 RF: 0 metoprolol succinate 200 mg tablet extended release 24 hr 200 mg PO DAILY Qty: 30 RF: 0 Continued tocilizumab 80 mg/4 mL (20 mg/mL) solution 0 mg IV Q28D RF: 0 folic acid 1 mg tablet 1 mg PO DAILY Qty: 90 RF: 1 ipratropium bromide 0.03 % spray,non-aerosol 2 sprays INTNAS BID PRN (Reason: Congestion) Qty: 30 RF: 1 (DME) blood-glucose meter [OneTouch Ultra2 Meter] Misc See Rx Instructions .ROUTE .MEDSUPPLY Qty: 1 RF: 0 lorazepam 0.5 mg tablet 0.5 mg PO BID PRN (Reason: anxiety) Qty: 60 RF: 2 cholecalciferol (vitamin D3) [Vitamin D3] 50 mcg (2,000 unit) capsule 2,000 unit PO QAM Qty: 90 RF: 3 (DME) OneTouch Ultra Blue Test Strip Strip See Dose Instructions .ROUTE .MEDSUPPLY Qty: 100 RF: 5 Humalog KwikPen Insulin 100 unit/mL insulin pen See Rx Instructions SQ AC Qty: 15 RF: 5 spironolactone 50 mg tablet 50 mg PO QAM Qty: 90 RF: 3 (DME) pen needle, diabetic [BD Ultra-Fine Micro Pen Needle] 32 gauge x 1/4" needle See Dose Instructions .ROUTE .MEDSUPPLY Qty: 100 RF: 5 montelukast 10 mg tablet 10 mg PO DAILY Qty: 90 RF: 1 simvastatin 20 mg tablet 20 mg PO DAILY Qty: 90 RF: 1 furosemide 40 mg tablet 40 mg PO .COMPLEX Qty: 135 RF: 3 Toujeo SoloStar U-300 Insulin 300 unit/mL (1.5 mL) insulin pen 22 unit subcut DAILY Qty: 4.5 RF: 1 warfarin [Jantoven] 4 mg tablet See Rx Instructions PO UD Qty: 75 RF: 1 methotrexate sodium 2.5 mg tablet 5 mg PO SA RF: 0 calcitriol 0.25 mcg capsule 0.25 mcg PO DAILY Qty: 90 RF: 3 meclizine 25 mg tablet 25 mg PO TID PRN (Reason: dizziness) Qty: 30 RF: 0 cyclobenzaprine 10 mg tablet 10 mg PO TID PRN (Reason: muscle spasm) Qty: 30 RF: 0 Annamaria-C with Bioflavonoids 1,000-200 mg Tablet 1 tab PO QAM RF: 0 calcium polycarbophil [Fiber (calcium polycarbophil)] 625 mg tablet 650 mg PO QAM PRN (Reason: constipation) RF: 0 ondansetron 4 mg tablet,disintegrating 4 mg PO Q6H PRN (Reason: nausea and vomiting) Qty: 14 RF: 0 diclofenac sodium 1 % gel 2 g topical QID PRN (Reason: Pain) RF: 0 Discontinued metoprolol succinate 50 mg tablet extended release 24 hr 75 mg PO BID Qty: 270 RF: 3 amiodarone 200 mg tablet 200 mg PO TID Qty: 90 RF: 3 omeprazole 40 mg capsule,delayed release(DR/EC) 40 mg PO DAILY Qty: 30 RF: 2 Discharge Orders: Discharge Order (Routine); Ordered 01/28/21 Ordered By: Carlyle Sierra/Other Patient Handouts: A1C, Managing Type 2 Diabetes Admission Data Admit Date/Time: 01/25/21 15:31 Attending Provider: Yon Dutton Admit Provider: Denisha Lopez Primary Care Provider: Neftaly Allison III Other Providers: Denisha Lopez ; Heber Lees ; Maricruz Little Other Interventions: Discharge Summary Assessment (RN) Last Done: 01/28/21 14:20 Supervising Physician Co-Signing Physician Notes Attending note: patient seen and examined with Carlyle Krishnamurthy PA-C. I agree with his discharge summary. I personally reviewed the labs and imaging findings. patient doing better, no further nausea discussed plan with Dr. Lees, will increase Toprol, he increased her pacer settings to try to limit PVCs, stop amiodarone he will see her in the office next week family will take patient home, make sure she is okay with medications changes Coding Level of Care Code D/C DAY MANAGEMENT >30 MINS Diagnoses Paroxysmal atrial fibrillation I48.0 Biventricular ICD (implantable cardioverter-defibrillator) in place Z95.810 Vomiting and diarrhea R11.10; R19.7 Ventricular bigeminy I49.8 Chronic systolic congestive heart failure I50.22 CKD (chronic kidney disease) N18.9 Diabetes mellitus E11.9 Dyslipidemia E78.5 Hypertension I10 Rheumatoid arthritis M06.9 Secondary hyperparathyroidism N25.81 GERD (gastroesophageal reflux disease) K21.9 DVT prophylaxis Z29.9 Time Spent (min) 60
== END 2021-01-28 14:59 | disposition home or self-care (01) | DRG 309 ==
LOC: EDINP 17:40 → ED 17:40 → SUATTDRO 01-23 02:25 → 2W 01-23 08:06 → SUATTDRO 01-25 15:31 → 1E 01-27 15:42
DX: N25.81 Secondary hyperparathyroidism of renal origin; K29.70 Gastritis, unspecified, without bleeding; I48.0 Paroxysmal atrial fibrillation; F32.9 Major depressive disorder, single episode, unspecified; Z95.810 Presence of automatic (implantable) cardiac defibrillator; N18.4 Chronic kidney disease, stage 4 (severe); E83.39 Other disorders of phosphorus metabolism; R00.8 Other abnormalities of heart beat; E86.0 Dehydration; Z83.3 Family history of diabetes mellitus; N17.9 Acute kidney failure, unspecified; E78.5 Hyperlipidemia, unspecified; I11.0 Hypertensive heart disease with heart failure; K21.9 Gastro-esophageal reflux disease without esophagitis; I49.3 Ventricular premature depolarization; R19.7 Diarrhea, unspecified; H90.3 Sensorineural hearing loss, bilateral; Z79.4 Long term (current) use of insulin; I42.9 Cardiomyopathy, unspecified; I50.22 Chronic systolic (congestive) heart failure; E11.43 Type 2 diabetes mellitus with diabetic autonomic (poly)neuropathy; Z79.52 Long term (current) use of systemic steroids; E11.649 Type 2 diabetes mellitus with hypoglycemia without coma; M06.9 Rheumatoid arthritis, unspecified; Z96.659 Presence of unspecified artificial knee joint; Z79.82 Long term (current) use of aspirin

== ENCOUNTER 2021-04-15 13:59 | Inpatient (IN) ==
[2021-04-15] MEDS ORDERED: SODIUM CHLORIDE 0.9% 500 ML IV STA (14:18)
[2021-04-15] MEDS ORDERED: MoRPHine SULFATE 2 MG/ML CARP IV STA (14:20)
[2021-04-15] MEDS ORDERED: ONDANSETRON INJ 2 MG/ML 2 ML VIAL IV STA (14:20)
--- NOTE | 2021-04-15 14:22 | Emergency Department Note ---
Impression & Plan Acute hypoxemic respiratory failure due to COVID-19 ADMIT ED Provider Note HPI: The patient is an 85-year-old female with history of rheumatoid arthritis, on methotrexate, recent diagnosis of COVID-19, who presents the emergency department with a chief complaint of arthralgias. Patient states that she has a history of rheumatoid arthritis, states that her pain has been worsening over the past several months and she was recently taken off of the medication by her telecom network manager. She states that she believes her symptoms have been worsening since she was diagnosed with COVID-19 several weeks ago. Patient states she was complaining about her symptoms today to her PCP and was recommended to come to the emergency department for further evaluation. Patient states that her pain is to the point where she is having some difficulty managing her activities of daily living at home, she is having some difficulty walking throughout the house secondary to joint pain and "fatigue". She denies any recent falls, denies any chest pain or shortness of breath. She denies any recent fevers, states she has had a slight cough. On arrival to the ED the patient is afebrile, she is hemodynamically stable, she is saturating well on room air. ROS: -MSK: Arthralgias consistent with arthritis flares -General: Generalized fatigue *10 point review systems was conducted and is otherwise negative unless stated above *Outpatient medications and allergy history reviewed PE: General: Alert, NAD HEENT: Normocephalic, atraumatic, trachea midline Eyes: Extraocular eye movement is intact, no scleral erythema Pulmonary: Slightly diminished bilaterally without any wheezing Cardio: Regular rate and rhythm GI: Abdomen is soft, nontender : No suprapubic tenderness MSK: No evidence of trauma or malformation of the extremities, no edema Skin: No evidence of rash Neuro: Alert, no focal deficits Psychiatric: Cooperative surveillance monitor: Order placed, patient is in a paced rhythm on the monitor EKG: Medical Decision Making: Patient presented to the emergency department vague symptoms of generalized weakness, states she is also having some increasing joint pain that she attributes to her underlying rheumatoid arthritis. She is on methotrexate, on arrival here to the ED she is initially hemodynamically stable, afebrile. On my initial evaluation the patient has somewhat diminished bilateral breath sounds but she is in no acute distress, her abdomen is soft and nontender. Lab work was ordered, there is no leukocytosis, no left shift, chest x-ray shows evidence of a developing left-sided pneumonia, patient does have an underlying diagnosis of COVID-19 from March 28, however in addition to this finding on chest x-ray she also has an elevated procalcitonin level. Blood cultures will be drawn, opted for treatment with IV antibiotics ceftriaxone and azithromycin. I was informed by the bedside RN that the patient had some hypoxia at the bed side, she was noted to have desaturations to 88% with a reliable waveform on the monitor, I did reevaluate the patient and noticed this myself, she was therefore placed on 2 L supplemental nasal cannula oxygen, will add on INR levels as the patient is on Coumadin, also troponin, EKG. Patient denies any chest pain. She denies any shortness of breath but states she does feel very "fatigued" when she is trying to get around her home to the point where she is having difficulty. Given the patient's hypoxia, I did discuss the case with the on-call [facility], Zachary Garcia, patient was accepted to a telemetry bed for further management of COVID-19, hypoxia, and superimposed bacterial pneumonia. Patient was in agreement to the above plan and she was admitted in stable condition. * Diagnosis: COVID-19, hypoxia, community-acquired pneumonia * Disposition: Admission * CRITICAL CARE TIME: 38 min -Stabilization of hypoxia requiring supplemental oxygen via nasal cannula for correction, time spent at the bedside, interpretation of diagnostic studies, discussion with other healthcare providers Eduardo Tamez DO Emergency Medicine Past Med/Surg History Medical History (Updated 04/15/21 @ 16:31 by Eduardo Tamez DO) Anxiety and depression Atrial fibrillation Biventricular ICD (implantable cardioverter-defibrillator) in place (2015) [employer]>GETS CHECKED BY DR. VARGAS Chronic systolic congestive heart failure COVID-19 (~03/2021) Degenerative disc disease Diabetes mellitus, type 2 Diabetic neuropathy Dyslipidemia GERD without esophagitis History of basal cell carcinoma Hx of squamous cell carcinoma Hypertension Non-ischemic cardiomyopathy PAC (premature atrial contraction) Rheumatoid arthritis Sensorineural hearing loss (SNHL) of both ears Stage III chronic kidney disease Third degree AV block Surgical History History of anesthesia reaction CONFUSION WITH GALLBLADDER REMOVAL, AWARENESS DURING COLONOSCOPY History of cataract surgery RT/LEFT History of colonoscopy History of esophagogastroduodenoscopy (EGD) History of tooth extraction S/P cholecystectomy S/P total knee arthroplasty RT/LEFT S/P tubal ligation Family History Father Heart disease Mother Diabetes Heart disease Myocardial infarction Family history of diabetes mellitus Grandfather (Maternal) Prostate cancer Family history of diabetes mellitus Other Family history non-contributory No family history of adverse response to anesthesia Denies family history of Ovarian cancer Breast cancer Colorectal cancer Social History (Updated 04/11/21 @ 13:19 by Joselyn Reyes MA) Smoking Status: Never smoker Second Hand Exposure: Yes ( A CHILD); Hx Alcohol Use: Yes Alcohol type: wine Preferred Language: Welsh Communication Ability: Effective Visual Impairment: No Limitations Hearing Ability: Use of Hearing Aid Psychiatric Nursing Assistant Required: No Beliefs That Will Affect Care: None marital status: Current Living Situation: Spouse current occupational status: retired Feels Safe at Home: Yes Childhood Exposure to Second-Hand Smoke: Yes Dental Care, Regularly: Yes Physical Activity Frequency: Does not Exercise Seatbelt Use: always Sunscreen Use: Yes Assistive Devices: Glasses and Hearing Aid - Bilateral Allergies Allergies Allergy/AdvReac Type Severity Reaction Status Date / Time amiodarone AdvReac Intermediate gi distress Verified 04/15/21 15:18 aspirin AdvReac Intermediate history of Verified 04/15/21 15:18 ulcers nortriptyline AdvReac Unknown DOESN'T Verified 04/15/21 15:18 REMEMBER Home Meds Home Medications Medication Instructions Recorded Confirmed tocilizumab 80 mg/4 mL (20 mg/mL) 0 mg IV Q28D ml 03/03/18 04/15/21 intravenous solution ascorbate calcium-bioflavonoid 1 tab PO QAM 11/11/18 04/15/21 1,000 mg-200 mg tablet (Annamaria-C with Bioflavonoids) calcium polycarbophil 625 mg 650 mg PO QAM PRN 02/10/19 04/15/21 tablet (Fiber (calcium polycarbophil)) methotrexate sodium 2.5 mg tablet 5 mg PO WK tab 03/30/19 04/15/21 furosemide 40 mg tablet 60 mg PO DAILY tab 03/17/21 04/15/21 sucralfate 100 mg/mL oral 1 g PO BID PRN ml 03/17/21 04/15/21 suspension polyethylene glycol 3350 17 17 g PO BID 03/24/21 04/15/21 gram/dose oral powder (Miralax) insulin glargine U-300 conc 300 22 unit SUBCUT QAM 03/26/21 04/15/21 unit/mL (1.5 mL) subcutaneous pen (Toujeo SoloStar U-300 Insulin) warfarin 4 mg tablet (Jantoven) See Rx Instructions .ROUTE 03/26/21 04/15/21 .COMPLEX tab Previous Rx's Medication Instructions Recorded folic acid 1 mg tablet 1 mg PO DAILY #90 tab 07/14/19 ipratropium bromide 21 mcg (0.03 2 sprays INTNAS BID PRN #30 ml 09/29/19 %) nasal spray meclizine 25 mg tablet 25 mg PO TID PRN #30 tab 12/20/19 blood-glucose meter (OneTouch #1 ea 12/21/19 Ultra2 Meter) lorazepam 0.5 mg tablet 0.5 mg PO BID PRN #60 tab 03/12/20 cholecalciferol (vitamin D3) 50 2,000 unit PO QAM #90 cap 03/25/20 mcg (2,000 unit) capsule (Vitamin D3) calcitriol 0.25 mcg capsule 0.25 mcg PO DAILY #90 cap 05/16/20 insulin lispro 100 unit/mL See Rx Instructions SQ AC #15 ml 05/16/20 subcutaneous pen (Humalog KwikPen (U-100) Insulin) spironolactone 50 mg tablet 50 mg PO QAM #90 tab 06/04/20 pen needle, diabetic 32 gauge x #100 ea 08/02/2006/17" (BD Ultra-Fine Micro Pen Needle) simvastatin 20 mg tablet 20 mg PO DAILY #90 tab 10/04/20 diclofenac sodium 1 % topical gel 2 g EXT QID #100 g 01/28/21 (Voltaren Arthritis Pain) blood sugar diagnostic #100 ea 02/06/21 metoprolol succinate 200 mg 200 mg PO DAILY #90 tab 02/19/21 tablet,extended release 24 hr montelukast 10 mg tablet 10 mg PO DAILY #90 tab 02/19/21 pantoprazole 40 mg tablet,delayed 40 mg PO BID #180 tab 02/19/21 release doxycycline hyclate 100 mg tablet 100 mg PO BID 7 Days #14 tab 04/01/21 buspirone 5 mg tablet 5 mg PO BID PRN #60 tab 04/11/21 Results & Data (ED) Vital Signs Vital Signs - 24 hr 04/15/21 14:00 Temperature 37.3 C Temperature Source Oral Pulse Rate 95 H Respiratory Rate 16 Respiratory Effort / Characteristics Non-Labored Spontaneous Respiratory Depth Normal Blood Pressure 150/67 H Blood Pressure Mean 94 Blood Pressure Position Lying Pulse Oximetry 95 Oxygen Delivery Method Room Air Sepsis Recent Fever Within 48 Hours No Sepsis New/Unexplained Change in Mental Status No Sepsis Action Taken by Nursing No Action Required Laboratory Data Result diagrams: 04/15/21 14:40 04/15/21 14:40 Lab Results 04/15/21 04/15/21 04/15/21 Range/Units 14:40 14:40 14:40 WBC 9.98 (4.8-10.8) K/uL RBC 3.53 L (4.2-5.4) M/uL Hgb 11.2 L (12.0-16.0) g/dL Hct 32.3 L (37-47) % MCV 91.5 (80-100) fL MCH 31.7 (25-34) pg MCHC 34.7 (32-36) g/dL RDW Std Deviation 47.0 H (36.4-46.3) fL RDW Coeff of Shai 14.6 H (11.5-14.5) % Plt Count 249 (130-400) K/uL MPV 9.7 (7.4-10.4) fL Immature Gran % (Auto) 0.2 % Neut % (Auto) 88.7 % Lymph % (Auto) 7.4 % [place] % (Auto) 3.7 % Eos % (Auto) 0.0 % Baso % (Auto) 0.0 % Neut # (Auto) 8.85 H (1.4-6.5) K/uL Lymph # (Auto) 0.74 L (1.2-3.4) K/uL [place] # (Auto) 0.37 (0.11-0.59) K/uL Eos # (Auto) 0.00 (0-0.5) K/uL Baso # (Auto) 0.00 (0-0.2) K/uL Immature Gran # (Auto) 0.02 (0.00-0.02) K/uL Sodium 129 L (136-145) mmol/L Potassium 3.6 (3.5-5.1) mmol/L Chloride 95 L (98-107) mmol/L Carbon Dioxide 27 (21-32) mmol/L Anion Gap 7.0 (3-11) BUN 41 H (7-18) mg/dl Creatinine 2.16 H (0.6-1.2) mg/dl Est Cr Clr Drug Dosing 22.2 ml/min Est GFR ( Amer) 23.8 ml/min Est GFR (Non-Af Amer) 20.5 ml/min BUN/Creatinine Ratio 19.2 (10-20) Glucose 166 H (70-99) mg/dl Lactate (0.4-2.0) mmol/L Calcium 9.0 (8.5-10.1) mg/dl Total Bilirubin 1.6 H (0.2-1) mg/dl AST 27 (15-37) U/L ALT 25 (12-78) U/L Alkaline Phosphatase 64 (45-117) U/L Total Protein 7.3 (6.4-8.2) gm/dl Albumin 2.5 L (3.4-5.0) gm/dl Globulin 4.8 H (2.5-4.0) gm/dl Albumin/Globulin Ratio 0.5 L (0.9-2) Procalcitonin 0.55 H (0-0.5) ng/ml Urine Color Urine Appearance (Clear) Urine pH (4.5-7.5) Ur Specific Turner (1.000-1.030) Urine Protein (Negative) Urine Glucose (UA) (Negative) Urine Ketones (Negative) Urine Blood (Negative) Urine Nitrite (Negative) Urine Bilirubin (Negative) Urine Urobilinogen (Negative) Ur Leukocyte Esterase (Negative) Urine WBC (Auto) (0-5) /hpf Urine RBC (Auto) (0-4) /hpf U Hyaline Cast (Auto) (0-5) /lpf U Epithel Cells (Auto) (0-5) /lpf Urine Bacteria (Auto) (Negative) 04/15/21 04/15/21 Range/Units 14:40 15:00 WBC (4.8-10.8) K/uL RBC (4.2-5.4) M/uL Hgb (12.0-16.0) g/dL Hct (37-47) % MCV (80-100) fL MCH (25-34) pg MCHC (32-36) g/dL RDW Std Deviation (36.4-46.3) fL RDW Coeff of Shai (11.5-14.5) % Plt Count (130-400) K/uL MPV (7.4-10.4) fL Immature Gran % (Auto) % Neut % (Auto) % Lymph % (Auto) % [place] % (Auto) % Eos % (Auto) % Baso % (Auto) % Neut # (Auto) (1.4-6.5) K/uL Lymph # (Auto) (1.2-3.4) K/uL [place] # (Auto) (0.11-0.59) K/uL Eos # (Auto) (0-0.5) K/uL Baso # (Auto) (0-0.2) K/uL Immature Gran # (Auto) (0.00-0.02) K/uL Sodium (136-145) mmol/L Potassium (3.5-5.1) mmol/L Chloride (98-107) mmol/L Carbon Dioxide (21-32) mmol/L Anion Gap (3-11) BUN (7-18) mg/dl Creatinine (0.6-1.2) mg/dl Est Cr Clr Drug Dosing ml/min Est GFR ( Amer) ml/min Est GFR (Non-Af Amer) ml/min BUN/Creatinine Ratio (10-20) Glucose (70-99) mg/dl Lactate 0.9 (0.4-2.0) mmol/L Calcium (8.5-10.1) mg/dl Total Bilirubin (0.2-1) mg/dl AST (15-37) U/L ALT (12-78) U/L Alkaline Phosphatase (45-117) U/L Total Protein (6.4-8.2) gm/dl Albumin (3.4-5.0) gm/dl Globulin (2.5-4.0) gm/dl Albumin/Globulin Ratio (0.9-2) Procalcitonin (0-0.5) ng/ml Urine Color Yellow Urine Appearance Clear (Clear) Urine pH 6.5 (4.5-7.5) Ur Specific Turner 1.007 (1.000-1.030) Urine Protein Trace H (Negative) Urine Glucose (UA) Negative (Negative) Urine Ketones Negative (Negative) Urine Blood Negative (Negative) Urine Nitrite Negative (Negative) Urine Bilirubin Negative (Negative) Urine Urobilinogen Negative (Negative) Ur Leukocyte Esterase Negative (Negative) Urine WBC (Auto) 1-5 (0-5) /hpf Urine RBC (Auto) 0-4 (0-4) /hpf U Hyaline Cast (Auto) 0 (0-5) /lpf U Epithel Cells (Auto) >30 H (0-5) /lpf Urine Bacteria (Auto) Negative (Negative) Administered Medications Discontinued Medications Sodium Chloride (Nss) 500 mls @ 999 mls/hr IV .Q31M STA Stop: 04/15/21 14:48 Last Infusion: 04/15/21 15:26 Dose: 0 mls/hr Documented by: [id number] Admin: 04/15/21 14:55 Dose: 999 mls/hr Documented by: [id number] Morphine Sulfate (Morphine Sulfate 2 Mg/Ml Carp) 2 mg IV NOW STA Stop: 04/15/21 14:21 Last Admin: 04/15/21 14:54 Dose: 2 mg Documented by: [id number] Ondansetron HCl (Ondansetron Inj 2 Mg/Ml 2 Ml Vial) 4 mg IV NOW STA Stop: 04/15/21 14:21 Last Admin: 04/15/21 14:55 Dose: 4 mg Documented by: [id number] Imaging Data Radiologist's Impression: Chest X-Ray 04/15/21 14:19 XR chest 1V portable HISTORY: Weakness. COMPARISON: Chest 01/22/2021. FINDINGS: No pneumothorax. The heart remains mildly enlarged. There is a left- sided pacemaker/defibrillator. Stable calcified granuloma within the right lung apex. Stable blunting left lateral costophrenic sulcus. Questionable faint patchy hazy airspace opacities within the left lung base. No evidence for pulmonary edema. IMPRESSION: Possible faint patchy hazy airspace opacity within left lung base. This may represent a developing pneumonia. ACT 112: Negative or not required by law. Electronically signed by: Dexter Bowser M.D. 04/15/2021 3:31 PM Discharge Plan Visit Data Chief Complaint: Pain (Generalized) Stated Complaint: Fever cough ED Provider: Eduardo aTmez Discharge Problem: Acute hypoxemic respiratory failure due to COVID-19 Forms Stand Alone Forms: [facility] Prescriptions Prescriptions: No Action tocilizumab 80 mg/4 mL (20 mg/mL) solution 0 mg IV Q28D RF: 0 warfarin [Jantoven] 4 mg tablet See Rx Instructions .ROUTE .COMPLEX RF: 0 furosemide 40 mg tablet 60 mg PO DAILY RF: 0 sucralfate 100 mg/mL suspension 1 g PO BID PRN (Reason: .) RF: 0 folic acid 1 mg tablet 1 mg PO DAILY Qty: 90 RF: 1 ipratropium bromide 0.03 % spray,non-aerosol 2 sprays INTNAS BID PRN (Reason: Congestion) Qty: 30 RF: 1 (DME) blood-glucose meter [[employer]Touch Ultra2 Meter] Misc See Rx Instructions .ROUTE .MEDSUPPLY Qty: 1 RF: 0 lorazepam 0.5 mg tablet 0.5 mg PO BID PRN (Reason: anxiety) Qty: 60 RF: 2 cholecalciferol (vitamin D3) [Vitamin D3] 50 mcg (2,000 unit) capsule 2,000 unit PO QAM Qty: 90 RF: 3 Humalog KwikPen Insulin 100 unit/mL insulin pen See Rx Instructions SQ AC Qty: 15 RF: 5 spironolactone 50 mg tablet 50 mg PO QAM Qty: 90 RF: 3 (DME) pen needle, diabetic [BD Ultra-Fine Micro Pen Needle] 32 gauge x 1/4" needle See Dose Instructions .ROUTE .MEDSUPPLY Qty: 100 RF: 5 simvastatin 20 mg tablet 20 mg PO DAILY Qty: 90 RF: 1 (DME) blood sugar diagnostic Strip See Dose Instructions .ROUTE .MEDSUPPLY Qty: 100 RF: 5 montelukast 10 mg tablet 10 mg PO DAILY Qty: 90 RF: 1 metoprolol succinate 200 mg tablet extended release 24 hr 200 mg PO DAILY Qty: 90 RF: 1 pantoprazole 40 mg tablet,delayed release (DR/EC) 40 mg PO BID Qty: 180 RF: 3 methotrexate sodium 2.5 mg tablet 5 mg PO WK RF: 0 calcitriol 0.25 mcg capsule 0.25 mcg PO DAILY Qty: 90 RF: 3 doxycycline hyclate 100 mg tablet 100 mg PO BID 7 Days Qty: 14 RF: 0 meclizine 25 mg tablet 25 mg PO TID PRN (Reason: dizziness) Qty: 30 RF: 0 buspirone 5 mg tablet 5 mg PO BID PRN (Reason: anxiety) Qty: 60 RF: 0 Annamaria-C with Bioflavonoids 1,000-200 mg Tablet 1 tab PO QAM RF: 0 calcium polycarbophil [Fiber (calcium polycarbophil)] 625 mg tablet 650 mg PO QAM PRN (Reason: constipation) RF: 0 polyethylene glycol 3350 [Miralax] 17 gram/dose Powder 17 g PO BID RF: 0 Toujeo SoloStar U-300 Insulin 300 unit/mL (1.5 mL) insulin pen 22 unit subcut QAM RF: 0 diclofenac sodium [Voltaren Arthritis Pain] 1 % Gel 2 g EXT QID Qty: 100 RF: 0 Referrals Referrals: Neftaly Allison III, CRNP [Primary Care Provider] -
[2021-04-15 14:53] LABS: Hematocrit (blood only) 32.3 % (37-47); Hemoglobin 11.2 g/dL (12.0-16.0); Immature Granulocytes # (auto) 0.02 K/uL (0.00-0.02); Immature Granulocytes % (auto) 0.2 %; Lymphocytes # (auto) 0.74 K/uL (1.2-3.4); Lymphocytes % (auto) 7.4 %; Mean Corpuscular Hemoglobin 31.7 pg (25-34); Mean Corpuscular Hgb Conc 34.7 g/dL (32-36); Mean Corpuscular Volume 91.5 fL (80-100); Mean Platelet Volume 9.7 fL (7.4-10.4); Monocytes # (auto) 0.37 K/uL (0.11-0.59); Monocytes % (auto) 3.7 %; Neutrophils # (auto) 8.85 K/uL (1.4-6.5); Neutrophils % (auto) 88.7 %; Platelet Count 249 K/uL (130-400); RDW Coefficient of Variation 14.6 % (11.5-14.5); Red Blood Count 3.53 M/uL (4.2-5.4); White Blood Count 9.98 K/uL (4.8-10.8)
[2021-04-15 15:14] LABS: Appearance Urine Clear (Clear); Bacteria Urine Automated Negative (Negative); Bilirubin Urine Negative (Negative); Blood Urine Negative (Negative); Cast Urine Automated 0 /lpf (0-5); Color Urine Yellow; Epithelial Cell Urine Auto >30 /lpf (0-5); Glucose Urine UA Negative (Negative); Ketones Urine Negative (Negative); Leukocyte Esterase Urine Negative (Negative); Nitrite Urine Negative (Negative); Protein Urine Trace (Negative); RBC Urine Automated 0-4 /hpf (0-4); Specific Gravity Urine 1.007 (1.000-1.030); Urobilinogen Urine Negative (Negative); pH Urine 6.5 (4.5-7.5)
[2021-04-15 15:21] LABS: Albumin Level 2.5 gm/dl (3.4-5.0); BUN Creatinine Ratio 19.2 (10-20); Creatinine Clr Calc Pharmacy 22.2 ml/min; Est GFR (African American) 23.8 ml/min; Est GFR (Non-African American) 20.5 ml/min; Potassium 3.6 mmol/L (3.5-5.1)
[2021-04-15 15:23] LABS: Albumin Globulin Ratio 0.5 (0.9-2); Bilirubin,Total 1.6 mg/dl (0.2-1); Globulin 4.8 gm/dl (2.5-4.0); Total Protein 7.3 gm/dl (6.4-8.2)
--- NOTE | 2021-04-15 15:33 | XRay Report ---
XR chest 1V portable HISTORY: Weakness. COMPARISON: Chest 01/22/2021. FINDINGS: No pneumothorax. The heart remains mildly enlarged. There is a left-sided pacemaker/defibri llator. Stable calcified granuloma within the right lung apex. Stable blunting left lateral costophre jimbo sulcus. Questionable faint patchy hazy airspace opacities within the left lung base. No evidence for pulmonary edema. IMPRESSION: Possible faint patchy hazy airspace opacity within left lung base. This may represent a developing pn eumonia. ACT 112: Negative or not required by law. Electronically signed by: Dexetr Bowser M.D. 04/15/2021 3:31 PM
[2021-04-15] MEDS ORDERED: CEFDINIR 300 MG CAP PO STA (15:47)
[2021-04-15] MEDS ORDERED: AZITHROMYCIN 250 MG TAB PO ONE (15:47)
[2021-04-15] MEDS ORDERED: cefTRIAXone SODIUM 1,000 MG/50 ML BAG IV STA (16:07)
[2021-04-15] MEDS ORDERED: AZITHROMYCIN 500 MG in DEXTROSE 5% 250 ML IV ONE (16:07)
[2021-04-15 17:07] LABS: INR 3.4 (0.9-1.1); Prothrombin Time 31.7 Seconds (9.0-12.0)
[2021-04-15 17:19] LABS: Base Excess VBG 3.4 mEq/L; Oxygen Saturation VBG 68.5 %; pH VBG 7.42 (7.36-7.41)
--- NOTE | 2021-04-15 18:13 | History & Physical Report ---
Date of Service April 15, 2021 Assessment & Plan (1) COVID-19: Plan: Patient ~ day 14 of COVID 19 now presents with increase in fatigue and body aches - Supportive care for now secondary to decrease oral intake which is notable by her hyponatremia - Episode of hypoxia in EMD to 88% - steroid prednisone 30mg stress for RA as below - Remains with bilateral ground glass opacities - CRP pending (2) Pneumonia: Plan: Bacterial superimposed infection can not be excluded - await blood cultures - clear sputum - completed course of doxycycline but remains with elevated NLR and PCT - Continue Azithromycin and Rocephin for possible pulmonary source- de- escalation as soon as warranted- - inflammation labs secondary to ? RA/GOUT possible as well. (3) Rheumatoid arthritis: Plan: Multiple arthralgias most noted in right foot- RA flare vs. Gout - uric acid in the morning - Has not received her Toczi infusion in over 3-4 months - ? RA flare- Prednisone 30mg PO now and then daily for 2-3 days- defer to [facility] for taper- CRP 18 (4) Hyponatremia: Plan: Likely secondary to decrease intake and continued diuretic use- NA 129 - Hold diuretics for tomorrow- can likely restart after - Received 500ml saline in EMD- continue with LR x1 liter overnight - follow BMP in morning (5) Paroxysmal atrial fibrillation: Plan: With BIvPacer/AICD- currently a sensed and V paced - appropriate function - Continue Metoprolol - Coumadin on hold with supratherapeutic INR to 3.4 - restart when in goal (6) Anticoagulant long-term use: Plan: Coumadin for Afib (7) Supratherapeutic INR: Plan: As above- hold- likey secondary to decrease in her oral intake of normal foods with Vitamin K (8) Chronic systolic congestive heart failure: Plan: HFrEF non acute not exacerbation - continue BB - Hold Diruetics until euvolemia - BNP 2702 (9) DMII (diabetes mellitus, type 2): Plan: Has noted increase in her glucose levels at home in the setting of illness - Continue Basal bolus insulin - On Toujeo 22 units at home - in house equivalent - Aspart sliding scale with CF 20 and Carb ratio 1:9- follow closely with steroid dosing and oral intake (10) Chronic kidney disease, stage IV (severe): Plan: baseline Creatinine ~2 -repeat BMP am (11) Biventricular ICD (implantable cardioverter-defibrillator) in place: Plan: As above, follows with cardiology - DDDR- Low rate 70; Upper rate 130, antitachycardic pacing and VF/VT therapies on. - no acute needs (12) Dyslipidemia: Plan: Continue statin (13) Hypertension: Plan: As above achieve euvolemia (14) GERD (gastroesophageal reflux disease): Plan: Continue with Carafate and Pantoprazole History of Present Illness Primary Care Provider: Neftaly Allison, III, TRANSCRIPT CLERK 85 YOF with past medical history of: HFrEF, BIv pacer/AICD, NICM, Afib (on Coumadin), Anxiety/Depression, GERD, Hiatal Hernia, RA, sinusitis, COVID. Patient originally with symptoms of COVID starting [id number] with + test on April 03 at outside clinic. She is vaccinated and did not require hospitalization. She was also started on Doxycycline by PCP on 03/28 for 14 days (completed on ). She also declined further imaging or management at that time. Today patient comes to the EMD today via EMS secondary to increased weakness, fatigue, lack of energy and appetite. Patient voices she just feels so run down. She endorses that she still is having some chills, but no overt fevers. Multiple joint arthralgias. In the EMD she had a CXR done and routine labs performed. CXR reveals bilateral haziness and ? "evolving pneumonia". She had one episode of decrease SP02 to 88% requiring supplemental oxygenation. She does endorse a productive cough, with clear sputum, no chest pain, or orthopnea. Does endorse dyspnea with activity and multiple arthralgias in knees, shoulder, and right foot. She was started on Azithromycin and Rocephin for her CXR and elevated NLR with PCT of 0.55, blood cultures were drawn prior to antibiotics. Patient will be admitted for supportive care as this is day 14 of her COVID, follow biomarkers, continue IVF supplementation if needed, will hold diuretics in the setting of her hyponatremia and decrease oral intake. She has not received her Toczi infusion in 3-4 months for her RA- will start prednisone for possible RA flare. Will hold Coumadin for now as well as her INR is 3.4 likely related to her decrease in her normal food intake. Follow daily Patient has had her COVID vaccine and COVID test on admission is: POSITIVE Allergies Allergy/AdvReac Type Severity Reaction Status Date / Time amiodarone AdvReac Intermediate gi distress Verified 04/15/21 15:18 aspirin AdvReac Intermediate history of Verified 04/15/21 15:18 ulcers nortriptyline AdvReac Unknown DOESN'T Verified 04/15/21 15:18 REMEMBER Home Medications Medication Instructions Recorded Confirmed Type tocilizumab 80 mg/4 mL (20 mg/mL) 0 mg IV Q28D ml 03/03/18 04/15/21 History intravenous solution ascorbate calcium-bioflavonoid 1 tab PO QAM 11/11/18 04/15/21 History 1,000 mg-200 mg tablet (Annamaria-C with Bioflavonoids) calcium polycarbophil 625 mg 650 mg PO QAM PRN 02/10/19 04/15/21 History tablet (Fiber (calcium polycarbophil)) methotrexate sodium 2.5 mg tablet 5 mg PO WK tab 03/30/19 04/15/21 History folic acid 1 mg tablet 1 mg PO DAILY #90 tab 07/14/19 04/15/21 Rx ipratropium bromide 21 mcg (0.03 2 sprays INTNAS BID PRN #30 ml 09/29/19 04/15/21 Rx %) nasal spray meclizine 25 mg tablet 25 mg PO TID PRN #30 tab 12/20/19 04/15/21 Rx blood-glucose meter (OneTouch #1 ea 12/21/19 03/26/21 Rx Ultra2 Meter) lorazepam 0.5 mg tablet 0.5 mg PO BID PRN #60 tab 03/12/20 04/15/21 Rx cholecalciferol (vitamin D3) 50 2,000 unit PO QAM #90 cap 03/25/20 04/15/21 Rx mcg (2,000 unit) capsule (Vitamin D3) calcitriol 0.25 mcg capsule 0.25 mcg PO DAILY #90 cap 05/16/20 04/15/21 Rx insulin lispro 100 unit/mL See Rx Instructions SQ AC #15 ml 05/16/20 04/15/21 Rx subcutaneous pen (Humalog KwikPen (U-100) Insulin) spironolactone 50 mg tablet 50 mg PO QAM #90 tab 06/04/20 04/15/21 Rx pen needle, diabetic 32 gauge x #100 ea 08/02/20 03/26/21 Rx 1/4" (BD Ultra-Fine Micro Pen Needle) simvastatin 20 mg tablet 20 mg PO DAILY #90 tab 10/04/20 04/15/21 Rx diclofenac sodium 1 % topical gel 2 g EXT QID #100 g 01/28/21 04/15/21 Rx (Voltaren Arthritis Pain) blood sugar diagnostic #100 ea 02/06/21 03/26/21 Rx metoprolol succinate 200 mg 200 mg PO DAILY #90 tab 02/19/21 04/15/21 Rx tablet,extended release 24 hr montelukast 10 mg tablet 10 mg PO DAILY #90 tab 02/19/21 04/15/21 Rx pantoprazole 40 mg tablet,delayed 40 mg PO BID #180 tab 02/19/21 04/15/21 Rx release furosemide 40 mg tablet 60 mg PO DAILY tab 03/17/21 04/15/21 History sucralfate 100 mg/mL oral 1 g PO BID PRN ml 03/17/21 04/15/21 History suspension polyethylene glycol 3350 17 17 g PO BID 03/24/21 04/15/21 History gram/dose oral powder (Miralax) insulin glargine U-300 conc 300 22 unit SUBCUT QAM 03/26/21 04/15/21 History unit/mL (1.5 mL) subcutaneous pen (Toujeo SoloStar U-300 Insulin) warfarin 4 mg tablet (Jantoven) See Rx Instructions .ROUTE 03/26/21 04/15/21 History .COMPLEX tab doxycycline hyclate 100 mg tablet 100 mg PO BID 7 Days #14 tab 04/01/21 04/15/21 Rx buspirone 5 mg tablet 5 mg PO BID PRN #60 tab 04/11/21 04/15/21 Rx Past Med/Surg History Medical History Anxiety and depression Atrial fibrillation Biventricular ICD (implantable cardioverter-defibrillator) in place (2015) [employer]>GETS CHECKED BY DR. VARGAS Chronic systolic congestive heart failure COVID-19 (~03/2021) Degenerative disc disease Diabetes mellitus, type 2 Diabetic neuropathy Dyslipidemia GERD without esophagitis History of basal cell carcinoma Hx of squamous cell carcinoma Hypertension Non-ischemic cardiomyopathy PAC (premature atrial contraction) Rheumatoid arthritis Sensorineural hearing loss (SNHL) of both ears Stage III chronic kidney disease Third degree AV block Surgical History History of anesthesia reaction CONFUSION WITH GALLBLADDER REMOVAL, AWARENESS DURING COLONOSCOPY History of cataract surgery RT/LEFT History of colonoscopy History of esophagogastroduodenoscopy (EGD) History of tooth extraction S/P cholecystectomy S/P total knee arthroplasty RT/LEFT S/P tubal ligation Family History Father Heart disease Mother Diabetes Heart disease Myocardial infarction Family history of diabetes mellitus Grandfather (Maternal) Prostate cancer Family history of diabetes mellitus Other Family history non-contributory No family history of adverse response to anesthesia Denies family history of Ovarian cancer Breast cancer Colorectal cancer Social History Smoking Status: Never smoker Second Hand Exposure: Yes ( A CHILD); Hx Alcohol Use: No Hx Substance Use: No Preferred Language: Romanian Communication Ability: Effective Visual Impairment: No Limitations Hearing Ability: Use of Hearing Aid Web Support Engineer Required: No Beliefs That Will Affect Care: None marital status: Current Living Situation: Spouse Current Living Situation Comment: home indpendently with current occupational status: retired Other Information That Helps Us Care for You: No Feels Safe at Home: Yes Safety Concerns: Feels Safe At This Time Childhood Exposure to Second-Hand Smoke: Yes Dental Care, Regularly: Yes Physical Activity Frequency: Does not Exercise Seatbelt Use: always Sunscreen Use: Yes Assistive Devices: Brace/Splint/Immobilizer, Glasses and Hearing Aid - Right Assistive Devices Comment: BL wrist braces for RA Review of Systems Review of Systems: REVIEW OF SYSTEMS: Constitutional: (+) chills, No fever, sweats or Eyes: No diplopia, no worsening or blurred vision ENT: (+) difficulty hearing with hearing aids, no trouble swallowing Respiratory: (+) cough, sputum, dyspnea at rest or on exertion Cardiovascular: No chest pain, tightness or palpitations Abdomen: (+) decrease appetitie No pain, nausea, vomiting, diarrhea or constipation Musculoskeletal: (+) joint pain, calf pain, swelling Neurologic: No weakness, numbness/tingling, or balance problems Psychiatric: No anxiety or depression Skin: No rash or itch Physical Exam Physical Exam: PHYSICAL EXAM: General: awake, alert, fatigued appearing Head: Normocephalic, atraumatic ENT: PERRL, EOMI, no pharyngeal exudate, mucous membranes dry Neuro: AAO x 3, speech clear and appropriate, strength intact bilaterally 5/5, sensation intact and equal all extremities and dermatomes, no pronator drift Chest: equal rise and fall of the chest, no accessory muscle use, no heaves or thrills, decreased air movement in the bases, no crackles or wheeze, on room 2LNC, Cardiac: Regular rate and rhythm, telemetry reviewed- V pace- occasional PVCs, skin warm dry, cap refill <3 seconds, peripheral pulses +2 no JVD, no murmur, no edema GI: NABS x 4 quadrants, soft, nontender to palpation, no rebound, guarding or tenderness : Spontaneously voiding, no pain, no CVA tenderness, MSK: shoulder, knee, and right foot pain Psych: Normal mood and affect Skin: no rash or erythema Results & Data Results & Data ([facility]) Vital Signs (Past 12 Hours) Vital Signs Temp Pulse Resp BP Pulse Ox 04/15/21 16:30 86 18 129/77 97 04/15/21 16:00 88 20 134/102 H 97 04/15/21 15:31 20 95 04/15/21 15:30 15 88 L 04/15/21 15:23 95 H 22 90 04/15/21 14:00 37.3 C 95 H 16 150/67 H 95 Laboratory Results Abnormal lab results 04/15/21 04/15/21 04/15/21 Range/Units 14:40 14:40 14:40 RBC 3.53 L (4.2-5.4) M/uL Hgb 11.2 L (12.0-16.0) g/dL Hct 32.3 L (37-47) % RDW Std Deviation 47.0 H (36.4-46.3) fL RDW Coeff of Shai 14.6 H (11.5-14.5) % Neut # (Auto) 8.85 H (1.4-6.5) K/uL Lymph # (Auto) 0.74 L (1.2-3.4) K/uL PT (9.0-12.0) Seconds INR (0.9-1.1) VBG pH (7.36-7.41) Sodium 129 L (136-145) mmol/L Chloride 95 L (98-107) mmol/L BUN 41 H (7-18) mg/dl Creatinine 2.16 H (0.6-1.2) mg/dl Glucose 166 H (70-99) mg/dl Total Bilirubin 1.6 H (0.2-1) mg/dl Albumin 2.5 L (3.4-5.0) gm/dl Globulin 4.8 H (2.5-4.0) gm/dl Albumin/Globulin Ratio 0.5 L (0.9-2) Procalcitonin 0.55 H (0-0.5) ng/ml Urine Protein (Negative) U Epithel Cells (Auto) (0-5) /lpf SARS-CoV-2 (PCR) (Negative) 04/15/21 04/15/21 04/15/21 Range/Units 15:00 16:39 16:39 RBC (4.2-5.4) M/uL Hgb (12.0-16.0) g/dL Hct (37-47) % RDW Std Deviation (36.4-46.3) fL RDW Coeff of Shai (11.5-14.5) % Neut # (Auto) (1.4-6.5) K/uL Lymph # (Auto) (1.2-3.4) K/uL PT 31.7 H (9.0-12.0) Seconds INR 3.4 H (0.9-1.1) VBG pH 7.42 H (7.36-7.41) Sodium (136-145) mmol/L Chloride (98-107) mmol/L BUN (7-18) mg/dl Creatinine (0.6-1.2) mg/dl Glucose (70-99) mg/dl Total Bilirubin (0.2-1) mg/dl Albumin (3.4-5.0) gm/dl Globulin (2.5-4.0) gm/dl Albumin/Globulin Ratio (0.9-2) Procalcitonin (0-0.5) ng/ml Urine Protein Trace H (Negative) U Epithel Cells (Auto) >30 H (0-5) /lpf SARS-CoV-2 (PCR) (Negative) 04/15/21 Range/Units 16:41 RBC (4.2-5.4) M/uL Hgb (12.0-16.0) g/dL Hct (37-47) % RDW Std Deviation (36.4-46.3) fL RDW Coeff of Shai (11.5-14.5) % Neut # (Auto) (1.4-6.5) K/uL Lymph # (Auto) (1.2-3.4) K/uL PT (9.0-12.0) Seconds INR (0.9-1.1) VBG pH (7.36-7.41) Sodium (136-145) mmol/L Chloride (98-107) mmol/L BUN (7-18) mg/dl Creatinine (0.6-1.2) mg/dl Glucose (70-99) mg/dl Total Bilirubin (0.2-1) mg/dl Albumin (3.4-5.0) gm/dl Globulin (2.5-4.0) gm/dl Albumin/Globulin Ratio (0.9-2) Procalcitonin (0-0.5) ng/ml Urine Protein (Negative) U Epithel Cells (Auto) (0-5) /lpf SARS-CoV-2 (PCR) POSITIVE A* (Negative) Diagnostic Findings Chest X-Ray 04/15/21 14:19 XR chest 1V portable HISTORY: Weakness. COMPARISON: Chest 01/22/2021. FINDINGS: No pneumothorax. The heart remains mildly enlarged. There is a left- sided pacemaker/defibrillator. Stable calcified granuloma within the right lung apex. Stable blunting left lateral costophrenic sulcus. Questionable faint patchy hazy airspace opacities within the left lung base. No evidence for pulmonary edema. IMPRESSION: Possible faint patchy hazy airspace opacity within left lung base. This may represent a developing pneumonia. ACT 112: Negative or not required by law. Electronically signed by: Dexter Bowser M.D. 04/15/2021 3:31 PM Medications Administered Home Medications tocilizumab 80 mg/4 mL (20 mg/mL) intravenous solution 0 mg IV Q28D ml 03/03/18 [History Confirmed 04/15/21] ascorbate calcium-bioflavonoid 1,000 mg-200 mg tablet (Annamaria-C with Bioflavonoids) 1 tab PO QAM 11/11/18 [History Confirmed 04/15/21] calcium polycarbophil 625 mg tablet (Fiber (calcium polycarbophil)) 650 mg PO QAM PRN 02/10/19 [History Confirmed 04/15/21] methotrexate sodium 2.5 mg tablet 5 mg PO WK tab 03/30/19 [History Confirmed 04/15/21] folic acid 1 mg tablet 1 mg PO DAILY #90 tab 07/14/19 [Rx Confirmed 04/15/21] ipratropium bromide 21 mcg (0.03 %) nasal spray 2 sprays INTNAS BID PRN #30 ml 09/29/19 [Rx Confirmed 04/15/21] meclizine 25 mg tablet 25 mg PO TID PRN #30 tab 12/20/19 [Rx Confirmed 04/15/21] blood-glucose meter (ClarivoyTouch Ultra2 Meter) #1 ea 12/21/19 [Rx Confirmed 03/26/21] lorazepam 0.5 mg tablet 0.5 mg PO BID PRN #60 tab 03/12/20 [Rx Confirmed 04/15/21] cholecalciferol (vitamin D3) 50 mcg (2,000 unit) capsule (Vitamin D3) 2,000 unit PO QAM #90 cap 03/25/20 [Rx Confirmed 04/15/21] calcitriol 0.25 mcg capsule 0.25 mcg PO DAILY #90 cap 05/16/20 [Rx Confirmed 04/15/21] insulin lispro 100 unit/mL subcutaneous pen (Humalog KwikPen (U-100) Insulin) See Rx Instructions SQ AC #15 ml 05/16/20 [Rx Confirmed 04/15/21] spironolactone 50 mg tablet 50 mg PO QAM #90 tab 06/04/20 [Rx Confirmed 04/15/21] pen needle, diabetic 32 gauge x 1/4" (BD Ultra-Fine Micro Pen Needle) #100 ea 08/02/20 [Rx Confirmed 03/26/21] simvastatin 20 mg tablet 20 mg PO DAILY #90 tab 10/04/20 [Rx Confirmed 04/15/21] diclofenac sodium 1 % topical gel (Voltaren Arthritis Pain) 2 g EXT QID #100 g 01/28/21 [Rx Confirmed 04/15/21] blood sugar diagnostic #100 ea 02/06/21 [Rx Confirmed 03/26/21] metoprolol succinate 200 mg tablet,extended release 24 hr 200 mg PO DAILY #90 tab 02/19/21 [Rx Confirmed 04/15/21] montelukast 10 mg tablet 10 mg PO DAILY #90 tab 02/19/21 [Rx Confirmed 04/15/21] pantoprazole 40 mg tablet,delayed release 40 mg PO BID #180 tab 02/19/21 [Rx Confirmed 04/15/21] furosemide 40 mg tablet 60 mg PO DAILY tab 03/17/21 [History Confirmed 04/15/21] sucralfate 100 mg/mL oral suspension 1 g PO BID PRN ml 03/17/21 [History Confirmed 04/15/21] polyethylene glycol 3350 17 gram/dose oral powder (Miralax) 17 g PO BID 03/24/21 [History Confirmed 04/15/21] insulin glargine U-300 conc 300 unit/mL (1.5 mL) subcutaneous pen (Toujeo SoloStar U-300 Insulin) 22 unit SUBCUT QAM 03/26/21 [History Confirmed 04/15/21] warfarin 4 mg tablet (Jantoven) See Rx Instructions .ROUTE .COMPLEX tab 03/26/21 [History Confirmed 04/15/21] doxycycline hyclate 100 mg tablet 100 mg PO BID 7 Days #14 tab 04/01/21 [Rx Confirmed 04/15/21] buspirone 5 mg tablet 5 mg PO BID PRN #60 tab 04/11/21 [Rx Confirmed 04/15/21] Discontinued Medications Azithromycin (Azithromycin 250 Mg Tab) 500 mg PO NOW ONE Stop: 04/15/21 15:48 Last Admin: 04/15/21 16:48 Dose: Not Given Documented by: [id number] Cefdinir (Cefdinir 300 Mg Cap) 300 mg PO ONE STA Stop: 04/15/21 15:48 Last Admin: 04/15/21 16:48 Dose: Not Given Documented by: [id number] Sodium Chloride (Nss) 500 mls @ 999 mls/hr IV .Q31M STA Stop: 04/15/21 14:48 Last Infusion: 04/15/21 15:26 Dose: 0 mls/hr Documented by: [id number] Admin: 04/15/21 14:55 Dose: 999 mls/hr Documented by: [id number] Azithromycin 500 mg/ Dextrose 255 mls @ 125 mls/hr IV ONE ONE Stop: 04/15/21 18:09 Last Admin: 04/15/21 16:48 Dose: 125 mls/hr Documented by: [id number] Ceftriaxone Sodium (Rocephin) 1,000 mg in 50 mls @ 100 mls/hr IV NOW STA Stop: 04/15/21 16:36 Last Infusion: 04/15/21 17:03 Dose: 0 mls/hr Documented by: [id number] Admin: 04/15/21 16:33 Dose: 100 mls/hr Documented by: [id number] Morphine Sulfate (Morphine Sulfate 2 Mg/Ml Carp) 2 mg IV NOW STA Stop: 04/15/21 14:21 Last Admin: 04/15/21 14:54 Dose: 2 mg Documented by: [id number] Ondansetron HCl (Ondansetron Inj 2 Mg/Ml 2 Ml Vial) 4 mg IV NOW STA Stop: 04/15/21 14:21 Last Admin: 04/15/21 14:55 Dose: 4 mg Documented by: [id number] Additional Comments: AV dual-paced rhythm with frequent Premature ventricular complexes Biventricular pacemaker detected Abnormal ECG When compared with ECG of 22-JAN-2021 18:36, Premature ventricular complexes are now Present Premature supraventricular complexes are no longer Present Vent. rate has decreased BY 2 BPM Code Status & VTE Plan Code Status CODE: FULL VTE: SCDs, Coumadin VTE Prophylaxis Plan VTE Prophylaxis will be ordered: Yes Supervising Physician Co-Signing Physician Notes Attending Attestation and Admission Note: Pt seen/examined, chart reviewed, admission care plan d/w DENVER Garcia. I agree with the cutler components of his documentation. 86yo female with long-standing RA, h/o chronic systolic CHF, CKD stage 4, T2DM, a.fib on coumadin, pacer/ICD - presents with nearly 2 weeks of COVID symptoms. Biggest complaint is that of diffuse joint pains worst in her right hand, left shoulder, and right foot/ankle/big toe. Also with mild pain in left big toe. She has had difficulty walking because of pain. Additionally has had severe weakness and fatigue along with poor oral intake since her COVID illness began. Denies significant pulmonary symptoms. PMH, PSH, allergies, meds, sochx, famhx - reviewed VSS, afebrile gen - NAD, awake, alert; no increased work of breathing mouth - MM dry neck - no JVD heart - irregular, s1 s2 lungs - bibasilar rales, no wheeze abd - soft NT ND BS+ ext - mild right ankle and right foot edema; pulses 2+ b/l musculo - RA changes of numerous joints including fingers, etc; synovitis of multiple small joints of right hand; mild synovitis left shoulder; crepitus b/l knees with passive ROM; right ankle with synovitis and mild pain with passive ROM; right mid-foot erythema, swelling, and discomfort with palpation; bunion deformities b/l feet; active synovitis of right great toe MTP joint; scant swelling MTP joint of left great toe skin - mild erythema right foot labs - Cr 2.1 Na 129 CRP elevated cxr and EKG reviewed INR 3.4 A/P: 1. COVID-19 pneumonia with mild hypoxia 2. long-standing, severe RA; previously on tocilizumab - no infusion since the summer; remains on once weekly Methotrexate; active RA - diffuse synovitis numerous joints 3. right ankle, right mid-foot, and right great toe synovitis - RA? gout? combination? 4. CKD stage 4 5. hyponatremia 6. chronic systolic CHF - most recent echo EF 55-60%, grade 1 diastolic dysfunction (November 2020); thus, EF has improved 7. permanent a.fib supportive care, steroids for #1 check uric acid level am; start prednisone for RA (and/or gout); prednisone will cover lungs as well gentle fluids overnight; repeat BMP am hold lasix for now PT, OT evals hold coumadin; repeat INR am; resume once INR <3 left message for pt's on his cell phone voicemail this evening Jeramy Witt MD PG Care Time/CCT Total # of Minutes Spent Total Time Spent with Patient: Total time spent is greater than 50% in coordination of care (as documented) at patient's floor/unit and/or counseling patient: Coding Level of Care Code 98885 Initial Inpt Care Lvl 3 Diagnoses COVID-19 U07.1 Pneumonia J18.9 Paroxysmal atrial fibrillation I48.0 Anticoagulant long-term use Z79.01 Chronic systolic congestive heart failure I50.22 Biventricular ICD (implantable cardioverter-defibrillator) in place Z95.810 Dyslipidemia E78.5 Hypertension I10 Rheumatoid arthritis M06.9 Hyponatremia E87.1 Supratherapeutic INR R79.1 DMII (diabetes mellitus, type 2) E11.9 GERD (gastroesophageal reflux disease) K21.9 Chronic kidney disease, stage IV (severe) N18.4
[2021-04-15 18:45] LABS: Phosphorus 3.1 mg/dl (2.5-4.9)
[2021-04-15] MEDS ORDERED: predniSONE 20 MG TAB PO ONE (18:49)
[2021-04-15] MEDS ORDERED: GLUCOSE 10 TABS/TUBE PO PRN (20:31)
[2021-04-15] MEDS ORDERED: GLUCAGON FOR INJ 1 MG VIAL SQ PRN (20:31)
[2021-04-15] MEDS ORDERED: CARBOHYDRATES FOR HYPOGLYCEMIA PO PRN (20:31)
[2021-04-15] MEDS ORDERED: DEXTROSE 50% 50 ML SYRINGE IV PRN (20:31)
[2021-04-15] MEDS ORDERED: busPIRone 5 MG TAB PO PRN (20:31)
[2021-04-15] MEDS ORDERED: GLUCOSE 40% GEL 15 GM TUBE PO PRN (20:31)
[2021-04-15] MEDS ORDERED: ACETAMINOPHEN 325 MG TAB PO PRN (20:31)
[2021-04-15] MEDS ORDERED: IPRATROPIUM BROMIDE NASAL SPRAY 0.06% 15ML NAE PRN (21:19)
[2021-04-15] MEDS ORDERED: LACTATED RINGER'S 1,000 ML IV ONE (21:30)
[2021-04-15] MEDS ORDERED: ENOXAPARIN INJ 40 MG/0.4 ML SYR SQ SCH (22:00)
[2021-04-15] MEDS: PANTOprazole 40 MG TAB PO SCH (22:33)
[2021-04-15] MEDS: DICLOFENAC SOD 1% GEL 100 GM TUBE EXT SCH (22:37)
[2021-04-15] MEDS: INSULIN ASPART 100 UNITS/ML 3 ML PEN SC SCH (22:45)
[2021-04-16 07:12] LABS: Hematocrit (blood only) 32.3 % (37-47); Hemoglobin 11.1 g/dL (12.0-16.0); Immature Granulocytes # (auto) 0.01 K/uL (0.00-0.02); Immature Granulocytes % (auto) 0.2 %; Lymphocytes # (auto) 0.41 K/uL (1.2-3.4); Lymphocytes % (auto) 7.2 %; Mean Corpuscular Hemoglobin 31.9 pg (25-34); Mean Corpuscular Hgb Conc 34.4 g/dL (32-36); Mean Corpuscular Volume 92.8 fL (80-100); Mean Platelet Volume 9.8 fL (7.4-10.4); Monocytes # (auto) 0.15 K/uL (0.11-0.59); Monocytes % (auto) 2.6 %; Neutrophils # (auto) 5.15 K/uL (1.4-6.5); Platelet Count 241 K/uL (130-400); RDW Coefficient of Variation 14.6 % (11.5-14.5); RDW Standard Deviation 47.8 fL (36.4-46.3); Red Blood Count 3.48 M/uL (4.2-5.4); White Blood Count 5.72 K/uL (4.8-10.8)
--- NOTE | 2021-04-16 07:36 | Hospitalist Progress Note ---
Date of Service April 16, 2021 Assessment & Plan (1) COVID-19: Plan: Patient ~ presented approximaelty day 14 of COVID 19 increased in fatigue and body aches feels improved maybe steroid response - Supportive care - Episode of hypoxia in EMD to 88% - returns to room air -steroid prednisone 30mg stress for RA as below - Remains with bilateral ground glass opacities - CRP 18.o (2) Pneumonia: Plan: Bacterial superimposed infection can not be excluded - blood culture negative to date - clear sputum - completed course of doxycycline but remains with elevated NLR and PCT - Continue Azithromycin and Rocephin for possible pulmonary source- de- escalation as warranted- - inflammation labs secondary to ? RA/GOUT possible as well. (3) Rheumatoid arthritis: Plan: Multiple arthralgias most noted in right foot- RA flare vs. Gout - uric acid 7.8 - Has not received her Toczi infusion in over 3-4 months - ? RA flare- Prednisone 30mg PO now and then daily for 2-3 days- defer to [facility] for taper- CRP 18 (4) Hyponatremia: Plan: Likely secondary to decrease intake and continued diuretic use- NA 129 - Hold diuretics - Received 500ml saline in EMD- continue with LR x1 liter overnight - follow BMP in morning (5) Paroxysmal atrial fibrillation: Plan: With BIvPacer/AICD- currently a sensed and V paced - appropriate function - Continue Metoprolol - Coumadin on hold with supratherapeutic INR to 3.6 - restart when in goal (6) Anticoagulant long-term use: Plan: Coumadin for Afib (7) Supratherapeutic INR: Plan: As above- continue to hold- likey secondary to decrease in her oral intake of normal foods with Vitamin K (8) Chronic systolic congestive heart failure: Plan: HFrEF non acute not exacerbation - continue BB - Hold Diruetics until euvolemia - BNP 2702 (9) DMII (diabetes mellitus, type 2): Plan: Has noted increase in her glucose levels at home in the setting of illness - Continue Basal bolus insulin - On Toujeo 22 units at home - in house equivalent - Aspart sliding scale with CF 20 and Carb ratio 1:9- follow closely with steroid dosing and oral intake (10) Chronic kidney disease, stage IV (severe): Plan: baseline Creatinine ~2 (11) Biventricular ICD (implantable cardioverter-defibrillator) in place: Plan: As above, follows with cardiology - DDDR- Low rate 70; Upper rate 130, antitachycardic pacing and VF/VT therapies on. - no acute needs (12) Dyslipidemia: Plan: Continue statin (13) Hypertension: Plan: As above achieve euvolemia (14) GERD (gastroesophageal reflux disease): Plan: Continue with Carafate and Pantoprazole Admission and Anticipated Discharge Date Admission Date: April 15, 2021 Subjective Patient states she feels much better just more energy less fatigue she never really felt marked shortness of breath Review of Systems Review of Systems: Mild distress and fatigue no headache, no visual changes no speech or swallowing issues no chest pain, pressure or palpitations no shortness of breath, does have a nonproductive cough no abdominal pain, nausea or vomiting, diarrhea or constipation no dysuria, hematuria or frequency no focal joint pain or swelling no back pain, CVA tenderness or radicular pain no bruising, bleeding or rashes no focal signs of weakness or numbness or altered sensation no complaints of anxiety or depression.. Physical Exam Physical Exam: The patient appeared well nourished and normally developed. Vital signs as documented. Head exam is normocephalic atraumatic Neck is without JVD, thyromegaly, or carotid bruits. Lungs some focal crackles at the left base Cardiac exam, Rhythm is regular.. No murmurs, rubs or gallops. Abdominal exam reveals normal bowel sounds, soft non tender, no masses Extremities are nonedematous and both pedal pulses are present Neurologic exam is alert and oriented, no focal loss of strength or sensation Skin is without bruises or rashes Psychologically is without concerns for anxiety or depression Results & Data Results & Data ([facility]) Vital Signs (Past 12 Hours) Vital Signs Temp Pulse Pulse Resp BP Pulse Ox Pulse Ox 04/16/21 07:28 97.7 F 80 17 143/81 H 100 04/16/21 04:02 98.2 F 84 14 120/72 97 04/16/21 00:00 85 04/15/21 23:26 98.8 F 89 14 105/61 94 97 04/15/21 22:42 98.2 F 87 17 133/78 94 PG Care Time/CCT Total # of Minutes Spent Total Time Spent with Patient: Total time spent is greater than 50% in coordination of care (as documented) at patient's floor/unit and/or counseling patient: Coding Level of Care Code 22693 Subseq Hosp Care Lvl 2 Diagnoses COVID-19 U07.1 Pneumonia J18.9 Rheumatoid arthritis M06.9 Hyponatremia E87.1 Paroxysmal atrial fibrillation I48.0 Anticoagulant long-term use Z79.01 Supratherapeutic INR R79.1 Chronic systolic congestive heart failure I50.22 DMII (diabetes mellitus, type 2) E11.9 Chronic kidney disease, stage IV (severe) N18.4 Biventricular ICD (implantable cardioverter-defibrillator) in place Z95.810 Dyslipidemia E78.5 Hypertension I10 GERD (gastroesophageal reflux disease) K21.9
[2021-04-16 07:37] LABS: INR 3.6 (0.9-1.1); Prothrombin Time 32.8 Seconds (9.0-12.0)
[2021-04-16 07:45] LABS: BUN Creatinine Ratio 20.4 (10-20); Calcium 9.1 mg/dl (8.5-10.1); Creatinine Clr Calc Pharmacy 22.3 ml/min; Est GFR (African American) 24.2 ml/min; Est GFR (Non-African American) 20.8 ml/min; Magnesium 2.1 mg/dl (1.8-2.4); Potassium 4.3 mmol/L (3.5-5.1); Uric Acid 7.8 mg/dl (2.6-7.2)
[2021-04-16] MEDS ORDERED: INSULIN GLARGINE SOLOSTAR 100 UNITS/ML 3 ML PEN SC SCH (09:00)
[2021-04-16] MEDS ORDERED: ENOXAPARIN INJ 30 MG/0.3 ML SYR SQ SCH (09:15)
[2021-04-16] MEDS: INSULIN ASPART 100 UNITS/ML 3 ML PEN SC SCH ×4 (09:33→20:45)
[2021-04-16] MEDS: SUCRALFATE 1 GM/10 ML UDC PO PRN (09:34)
[2021-04-16] MEDS: PANTOprazole 40 MG TAB PO SCH ×2 (09:34→20:45)
[2021-04-16] MEDS: METOPROLOL SUCC 50MG EXT REL TAB PO SCH (09:35)
[2021-04-16] MEDS: MONTELUKAST SODIUM 10 MG TABLET PO SCH (09:35)
[2021-04-16] MEDS: CHOLECALCIFEROL 1,000 UNITS 25 MCG TAB PO SCH (09:35)
[2021-04-16] MEDS: FOLIC ACID 1 MG TAB PO SCH (09:35)
[2021-04-16] MEDS: SPIRONOLACTONE 25 MG TAB PO SCH (09:35)
[2021-04-16] MEDS: SIMVASTATIN 20 MG TAB PO SCH (09:36)
[2021-04-16] MEDS: predniSONE 10 MG TABLET PO SCH (09:36)
[2021-04-16] MEDS: AZITHROMYCIN 250 MG TAB PO SCH (09:36)
[2021-04-16] MEDS: DICLOFENAC SOD 1% GEL 100 GM TUBE EXT SCH ×4 (09:37→20:41)
--- NOTE | 2021-04-16 10:52 | Electrocardiogram Report ---
Test Reason : Blood Pressure : / mmHG Vent. Rate : 088 BPM Atrial Rate : 088 BPM P-R Int : 126 ms QRS Dur : 154 ms QT Int : 432 ms P-R-T Axes : 075 -61 090 degrees QTc Int : 522 ms Poor data quality, interpretation may be adversely affected AV dual-paced rhythm with frequent Premature ventricular complexes Biventricular pacemaker detected Abnormal ECG When compared with ECG of 22-JAN-2021 18:36, Premature ventricular complexes are now Present Premature supraventricular complexes are no longer Present Vent. rate has decreased BY 2 BPM Confirmed by Palomo Chacon ([id number]) on 04/16/2021 10:52:24 AM Referred By: Neftaly Allison Confirmed By:Sam Chacon
[2021-04-16] MEDS: cefTRIAXone SODIUM 2,000 MG in DEXTROSE 5% 50 ML IV SCH (16:45)
[2021-04-16] MEDS: LORazepam 0.5 MG TAB PO PRN (21:52)
[2021-04-17 06:23] LABS: Eosinophils # (auto) 0.01 K/uL (0-0.5); Eosinophils % (auto) 0.1 %; Hematocrit (blood only) 33.7 % (37-47); Hemoglobin 11.4 g/dL (12.0-16.0); Immature Granulocytes # (auto) 0.01 K/uL (0.00-0.02); Immature Granulocytes % (auto) 0.1 %; Lymphocytes # (auto) 0.43 K/uL (1.2-3.4); Lymphocytes % (auto) 4.8 %; Mean Corpuscular Hemoglobin 31.4 pg (25-34); Mean Corpuscular Hgb Conc 33.8 g/dL (32-36); Mean Corpuscular Volume 92.8 fL (80-100); Mean Platelet Volume 9.5 fL (7.4-10.4); Monocytes # (auto) 0.29 K/uL (0.11-0.59); Monocytes % (auto) 3.2 %; Neutrophils # (auto) 8.31 K/uL (1.4-6.5); Neutrophils % (auto) 91.8 %; Platelet Count 264 K/uL (130-400); RDW Coefficient of Variation 14.4 % (11.5-14.5); RDW Standard Deviation 47.4 fL (36.4-46.3); Red Blood Count 3.63 M/uL (4.2-5.4); White Blood Count 9.05 K/uL (4.8-10.8)
[2021-04-17 06:47] LABS: INR 4.3 (0.9-1.1)
[2021-04-17 07:09] LABS: BUN Creatinine Ratio 22.6 (10-20); Calcium 9.4 mg/dl (8.5-10.1); Creatinine Clr Calc Pharmacy 21.4 ml/min; Est GFR (African American) 22.6 ml/min; Est GFR (Non-African American) 19.5 ml/min; Magnesium 2.2 mg/dl (1.8-2.4); Potassium 3.7 mmol/L (3.5-5.1)
[2021-04-17] MEDS: CHOLECALCIFEROL 1,000 UNITS 25 MCG TAB PO SCH (09:04)
[2021-04-17] MEDS: SUCRALFATE 1 GM/10 ML UDC PO PRN (09:04)
[2021-04-17] MEDS: predniSONE 10 MG TABLET PO SCH (09:05)
[2021-04-17] MEDS: METOPROLOL SUCC 50MG EXT REL TAB PO SCH (09:05)
[2021-04-17] MEDS: AZITHROMYCIN 250 MG TAB PO SCH (09:05)
[2021-04-17] MEDS: SPIRONOLACTONE 25 MG TAB PO SCH (09:05)
[2021-04-17] MEDS: SIMVASTATIN 20 MG TAB PO SCH (09:05)
[2021-04-17] MEDS: FOLIC ACID 1 MG TAB PO SCH (09:05)
[2021-04-17] MEDS: MONTELUKAST SODIUM 10 MG TABLET PO SCH (09:05)
[2021-04-17] MEDS: PANTOprazole 40 MG TAB PO SCH ×2 (09:05→20:31)
[2021-04-17] MEDS: DICLOFENAC SOD 1% GEL 100 GM TUBE EXT SCH ×4 (09:10→20:29)
[2021-04-17] MEDS: INSULIN ASPART 100 UNITS/ML 3 ML PEN SC SCH ×4 (09:47→20:30)
[2021-04-17] MEDS: INSULIN GLARGINE SOLOSTAR 100 UNITS/ML 3 ML PEN SC SCH (09:48)
[2021-04-17] MEDS: LORazepam 0.5 MG TAB PO PRN (11:06)
--- NOTE | 2021-04-17 16:32 | Hospitalist Progress Note ---
Date of Service April 17, 2021 Assessment & Plan (1) COVID-19: Plan: Patient ~ presented approximately day 14 of COVID 19 increased in fatigue and body aches actually had fever overnight - Supportive care - Episode of hypoxia in EMD to 88% - returns to room air -steroid prednisone 30mg stress for RA as below - Remains with bilateral ground glass opacities - CRP 18.o (2) Pneumonia: Plan: Bacterial superimposed infection can not be excluded - blood culture negative to date - clear sputum - completed course of doxycycline but remains with elevated NLR and PCT - Continue Azithromycin and Rocephin for possible pulmonary source- fever on antibiotics - inflammation labs secondary to ? RA/GOUT possible as well. (3) Rheumatoid arthritis: Plan: Multiple arthralgias most noted in right foot- RA flare vs. Gout - uric acid 7.8 - Has not received her Toczi infusion in over 3-4 months - ? RA flare- CRP 18 (4) Hyponatremia: Plan: Likely secondary to decrease intake and continued diuretic use- NA 129 - Hold diuretics - Received 500ml saline in EMD- continue with LR x1 liter overnight - follow BMP in morning (5) Paroxysmal atrial fibrillation: Plan: With BIvPacer/AICD- currently a sensed and V paced - appropriate function - Continue Metoprolol - Coumadin on hold with supratherapeutic INR to 3.6 - restart when in goal (6) Anticoagulant long-term use: Plan: Coumadin for Afib, supratherapeutic for 2 days with it going up, will give po vitamin K (7) Supratherapeutic INR: Plan: As above- continue to hold- vitamin K (8) Chronic systolic congestive heart failure: Plan: HFrEF non acute not exacerbation, seems eovolemic - continue BB - BNP 2702 (9) DMII (diabetes mellitus, type 2): Plan: Has noted increase in her glucose levels at home in the setting of illness - Continue Basal bolus insulin - On Toujeo 22 units at home - in house equivalent - Aspart sliding scale with CF 20 and Carb ratio 1:9- follow closely with steroid dosing and oral intake (10) Chronic kidney disease, stage IV (severe): Plan: baseline Creatinine ~2 (11) Biventricular ICD (implantable cardioverter-defibrillator) in place: Plan: As above, follows with cardiology - DDDR- Low rate 70; Upper rate 130, antitachycardic pacing and VF/VT therapies on. - no acute needs (12) Dyslipidemia: Plan: Continue statin (13) Hypertension: Plan: As above achieve euvolemia (14) GERD (gastroesophageal reflux disease): Plan: Continue with Carafate and Pantoprazole Admission and Anticipated Discharge Date Admission Date: April 15, 2021 Subjective Patient states she feels horrible, has had some fever, feels short of breath but is not hypoxic Review of Systems Review of Systems: Moderate distress and fatigue no headache, no visual changes no speech or swallowing issues no chest pain, pressure or palpitations shortness of breath, does have a nonproductive cough no abdominal pain, nausea or vomiting, diarrhea or constipation no dysuria, hematuria or frequency no focal joint pain or swelling no back pain, CVA tenderness or radicular pain no bruising, bleeding or rashes no focal signs of weakness or numbness or altered sensation no complaints of anxiety or depression.. Physical Exam Physical Exam: The patient appeared well nourished and normally developed. she looks much more fatigued Vital signs as documented. Head exam is normocephalic atraumatic Neck is without JVD, thyromegaly, or carotid bruits. Lungs some focal crackles at the right base Cardiac exam, Rhythm is regular.. No murmurs, rubs or gallops. Abdominal exam reveals normal bowel sounds, soft non tender, no masses Extremities are nonedematous and both pedal pulses are present Neurologic exam is alert and oriented, no focal loss of strength or sensation Skin is without bruises or rashes Psychologically is without concerns for anxiety or depression Results & Data Results & Data ([facility]) Vital Signs (Past 12 Hours) Vital Signs Temp Pulse Resp BP Pulse Ox 04/17/21 15:30 97.7 F 92 H 22 110/50 L 94 04/17/21 12:30 100.2 F H 04/17/21 11:20 100.6 F H 101 H 22 107/56 L 94 04/17/21 10:00 101.1 F H 04/17/21 07:15 98.4 F 96 H 20 133/85 95 PG Care Time/CCT Total # of Minutes Spent Total Time Spent with Patient: Total time spent is greater than 50% in coordination of care (as documented) at patient's floor/unit and/or counseling patient: Coding Level of Care Code 09070 Subseq Hosp Care Lvl 3 Diagnoses COVID-19 U07.1 Pneumonia J18.9 Rheumatoid arthritis M06.9 Hyponatremia E87.1 Paroxysmal atrial fibrillation I48.0 Anticoagulant long-term use Z79.01 Supratherapeutic INR R79.1 Chronic systolic congestive heart failure I50.22 DMII (diabetes mellitus, type 2) E11.9 Chronic kidney disease, stage IV (severe) N18.4 Biventricular ICD (implantable cardioverter-defibrillator) in place Z95.810 Dyslipidemia E78.5 Hypertension I10 GERD (gastroesophageal reflux disease) K21.9
[2021-04-17] MEDS ORDERED: PHYTONADIONE 5 MG TAB PO STA (16:41)
[2021-04-17] MEDS: dexAMETHasone 6 MG in SYRINGE 0 ML IV SCH (17:48)
[2021-04-17] MEDS: cefTRIAXone SODIUM 2,000 MG in DEXTROSE 5% 50 ML IV SCH (17:48)
[2021-04-18 07:40] LABS: Hematocrit (blood only) 32.4 % (37-47); Immature Granulocytes # (auto) 0.03 K/uL (0.00-0.02); Immature Granulocytes % (auto) 0.3 %; Lymphocytes # (auto) 0.47 K/uL (1.2-3.4); Mean Corpuscular Hemoglobin 31.1 pg (25-34); Mean Corpuscular Volume 91.5 fL (80-100); Mean Platelet Volume 9.8 fL (7.4-10.4); Monocytes % (auto) 2.6 %; Neutrophils # (auto) 10.81 K/uL (1.4-6.5); Neutrophils % (auto) 93.1 %; Platelet Count 281 K/uL (130-400); RDW Coefficient of Variation 14.4 % (11.5-14.5); RDW Standard Deviation 46.6 fL (36.4-46.3); Red Blood Count 3.54 M/uL (4.2-5.4); White Blood Count 11.61 K/uL (4.8-10.8)
[2021-04-18 07:51] LABS: Prothrombin Time 19.3 Seconds (9.0-12.0)
[2021-04-18 08:12] LABS: BUN Creatinine Ratio 23.8 (10-20); Calcium 9.5 mg/dl (8.5-10.1); Creatinine Clr Calc Pharmacy 25.4 ml/min; Est GFR (African American) 27.6 ml/min; Est GFR (Non-African American) 23.8 ml/min; Magnesium 2.1 mg/dl (1.8-2.4); Potassium 4.1 mmol/L (3.5-5.1)
[2021-04-18] MEDS: dexAMETHasone 6 MG in SYRINGE 0 ML IV SCH (08:52)
[2021-04-18] MEDS: MONTELUKAST SODIUM 10 MG TABLET PO SCH (08:53)
[2021-04-18] MEDS: SPIRONOLACTONE 25 MG TAB PO SCH (08:53)
[2021-04-18] MEDS: SIMVASTATIN 20 MG TAB PO SCH (08:53)
[2021-04-18] MEDS: PANTOprazole 40 MG TAB PO SCH (08:53)
[2021-04-18] MEDS: CHOLECALCIFEROL 1,000 UNITS 25 MCG TAB PO SCH (08:54)
[2021-04-18] MEDS: FOLIC ACID 1 MG TAB PO SCH (08:54)
[2021-04-18] MEDS: AZITHROMYCIN 250 MG TAB PO SCH (08:54)
[2021-04-18] MEDS: METOPROLOL SUCC 50MG EXT REL TAB PO SCH (08:54)
[2021-04-18] MEDS: INSULIN ASPART 100 UNITS/ML 3 ML PEN SC SCH ×2 (08:55→12:57)
[2021-04-18] MEDS: INSULIN GLARGINE SOLOSTAR 100 UNITS/ML 3 ML PEN SC SCH (08:55)
[2021-04-18] MEDS: DICLOFENAC SOD 1% GEL 100 GM TUBE EXT SCH ×2 (08:56→13:15)
--- NOTE | 2021-04-18 16:10 | Discharge Summary ---
Date of Service April 18, 2021 Admission HPI Per Admitting Provider 85 YOF with past medical history of: HFrEF, BIv pacer/AICD, NICM, Afib (on Coumadin), Anxiety/Depression, GERD, Hiatal Hernia, RA, sinusitis, COVID. Patient originally with symptoms of COVID starting [id number] with + test on April 03 at outside clinic. She is vaccinated and did not require hospitalization. She was also started on Doxycycline by PCP on 03/28 for 14 days (completed on ). She also declined further imaging or management at that time. Today patient comes to the EMD today via EMS secondary to increased weakness, fatigue, lack of energy and appetite. Patient voices she just feels so run down. She endorses that she still is having some chills, but no overt fevers. Multiple joint arthralgias. In the EMD she had a CXR done and routine labs performed. CXR reveals bilateral haziness and ? "evolving pneumonia". She had one episode of decrease SP02 to 88% requiring supplemental oxygenation. She does endorse a productive cough, with clear sputum, no chest pain, or orthopnea. Does endorse dyspnea with activity and multiple arthralgias in knees, shoulder, and right foot. She was started on Azithromycin and Rocephin for her CXR and elevated NLR with PCT of 0.55, blood cultures were drawn prior to antibiotics. Patient will be admitted for supportive care as this is day 14 of her COVID, follow biomarkers, continue IVF supplementation if needed, will hold diuretics in the setting of her hyponatremia and decrease oral intake. She has not received her Toczi infusion in 3-4 months for her RA- will start prednisone for possible RA flare. Will hold Coumadin for now as well as her INR is 3.4 likely related to her decrease in her normal food intake. Follow daily Patient has had her COVID vaccine and COVID test on admission is: POSITIVE Principal Diagnosis covid pneumonia elevated glucose Discharge Exam The patient appeared improving Vital signs as documented. Lungs are basilar rales Cardiac exam, Rhythm is regular.. No murmurs, rubs or gallops. Abdominal exam reveals normal bowel sounds, soft non tender, no masses Extremities are trace edematous and both pedal pulses are normal. Neurologic exam is alert and oriented, no focal loss of strength or sensation Skin is without bruises or rashes Psychologically is without concerns for anxiety or depression. Discharge Data Allergies Allergy/AdvReac Type Severity Reaction Status Date / Time amiodarone AdvReac Intermediate gi distress Verified 04/15/21 15:18 aspirin AdvReac Intermediate history of Verified 04/15/21 15:18 ulcers nortriptyline AdvReac Unknown DOESN'T Verified 04/15/21 15:18 REMEMBER Hospital Course (1) COVID-19: Patient ~ presented approximately day 14 of COVID 19 increased in fatigue and body aches no additional fevers was given stress steroids for this and RA flare will complete taper at [facility] - Remains with bilateral ground glass opacities, and clinical exam - CRP 18.o (2) Pneumonia: viral pneumonia, but will complete azithro - blood culture negative to date - clear sputum (3) Rheumatoid arthritis: Multiple arthralgias most noted in right foot- RA flare vs. Gout - uric acid 7.8 - Has not received her Toczi infusion in over 3-4 months - ? RA flare- CRP 18 (4) Hyponatremia: Likely secondary to decrease intake and continued diuretic use- NA 129 - 137 (5) Paroxysmal atrial fibrillation: With BIvPacer/AICD- currently a sensed and V paced - appropriate function - Continue Metoprolol - Coumadin resumed (6) Anticoagulant long-term use: Coumadin for Afib, improved after vitamin K (7) Supratherapeutic INR: resolved (8) Chronic systolic congestive heart failure: HFrEF non acute not exacerbation, seems eovolemic - continue BB, restart diuretic - BNP 2702 (9) DMII (diabetes mellitus, type 2): Has noted increase in her glucose levels at home in the setting of illness - On Toujeo 22 units at home -carb reduced diet (10) Chronic kidney disease, stage IV (severe): baseline Creatinine ~2 (11) Biventricular ICD (implantable cardioverter-defibrillator) in place: As above, follows with cardiology - DDDR- Low rate 70; Upper rate 130, antitachycardic pacing and VF/VT therapies on. - no acute needs (12) Dyslipidemia: Continue statin (13) Hypertension: As above achieve euvolemia (14) GERD (gastroesophageal reflux disease): Continue with Carafate and Pantoprazole Total Time Total Time Spent Total Time Spent (In Minutes): It required greater than 30 minutes to prepare this patient for discharge Discharge Plan Discharge Items Patient Disposition: Home - Self-Care Reason For Visit: COVID, FAITGUE, PNEUMONIA Discharge Diagnosis: covid pneumonia Activity: Per Instructions section Activity Comment: slowly increase activity Non-emergency contact: Primary Care Provider Call non-emergency contact if: you have a fever Follow-up/Referrals: Neftaly Allison III, CRNP [Primary Care Provider] - Diet: Regular Addtl Attending Provider Instructions: Home Isolation COVID-19 Instructions, it would be advised that you remain on home isolation thru the 24 of april. Please wear a mask around people that have not had covid and avoid the public at all possible occasions. The following information about Home Isolation is from the CDC Website: https://www.cdc.gov/coronavirus/2019-ncov/hcp/ujatofyj-sxdxefx-sgbbib.html Stay home except to get medical care People who are mildly ill with COVID-19 are able to isolate at home during their illness. You should restrict activities outside your home, except for getting medical care. Do not go to work, school, or public areas. Avoid using public transportation, ride-sharing, or taxis. Separate yourself from other people and animals in your home People: As much as possible, you should stay in a specific room and away from other people in your home. Also, you should use a separate bathroom, if available. Animals: You should restrict contact with pets and other animals while you are sick with COVID-19, just like you would around other people. Although there have not been reports of pets or other animals becoming sick with COVID-19, it is still recommended that people sick with COVID-19 limit contact with animals until more information is known about the virus. When possible, have another member of your household care for your animals while you are sick. If you are sick with COVID-19, avoid contact with your pet, including petting, snuggling, being kissed or licked, and sharing food. If you must care for your pet or be around animals while you are sick, wash your hands before and after you interact with pets and wear a face mask. Call ahead before visiting your doctor If you have a medical appointment, call the healthcare provider and tell them that you have or may have COVID-19. This will help the healthcare providers office take steps to keep other people from getting infected or exposed. Wear a face mask You should wear a face mask when you are around other people (e.g., sharing a room or vehicle) or pets and before you enter a healthcare providers office. If you are not able to wear a face mask (for example, because it causes trouble breathing), then people who live with you should not stay in the same room with you, or they should wear a face mask if they enter your room. Cover your coughs and sneezes Cover your mouth and nose with a tissue when you cough or sneeze. Throw used tissues in a lined trash can. Immediately wash your hands with soap and water for at least 20 seconds or, if soap and water are not available, clean your hands with an alcohol-based hand cardiopulmonary supervisor that contains at least 60% alcohol. Clean your hands often Wash your hands often with soap and water for at least 20 seconds, especially after blowing your nose, coughing, or sneezing; going to the bathroom; and before eating or preparing food. If soap and water are not readily available, use an alcohol-based hand cardiopulmonary supervisor with at least 60% alcohol, covering all surfaces of your hands and rubbing them together until they feel dry. Soap and water are the best option if hands are visibly dirty. Avoid touching your eyes, nose, and mouth with unwashed hands. Avoid sharing personal household items You should not share dishes, drinking glasses, cups, eating utensils, towels, or bedding with other people or pets in your home. After using these items, they should be washed thoroughly with soap and water. Clean all high-touch surfaces everyday High touch surfaces include counters, tabletops, doorknobs, bathroom fixtures, toilets, phones, keyboards, tablets, and bedside tables. Also, clean any surfaces that may have blood, stool, or body fluids on them. Use a household cleaning spray or wipe, according to the label instructions. Labels contain instructions for safe and effective use of the cleaning product including precautions you should take when applying the product, such as wearing gloves and making sure you have good ventilation during use of the product. Monitor your symptoms Seek prompt medical attention if your illness is worsening (e.g., difficulty breathing).Beforeseeking care, call your healthcare provider and tell them that you have, or are being evaluated for, COVID-19. Put on a face mask before you enter the facility. These steps will help the healthcare providers office to keep other people in the office or waiting room from getting infected or exposed. Ask your healthcare provider to call the local or state health department. Persons who are placed under active monitoring or facilitated self- monitoring should follow instructions provided by their local health department or occupational health professionals, as appropriate. When working with your local health department check their available hours. If you have a medical emergency and need to call 911, notify the dispatch personnel that you have, or are being evaluated for COVID-19. If possible, put on a face mask before emergency medical services arrive. Discontinuing home isolation Patients with confirmed COVID-19 should remain under home isolation precautions until the risk of secondary transmission to others is thought to be low. The decision to discontinue home isolation precautions should be made on a [id number] basis, in consultation with healthcare providers and [facility] and [facility] health departments. Pending Studies at Discharge: No Stand-Alone Forms: My [facility], Smoking Cessation Medications and DC Order Prescriptions: New azithromycin 250 mg Tablet 250 mg PO QAM Qty: 4 RF: 0 prednisone 10 mg tablet 10 mg PO DAILY Qty: 40 RF: 0 Continued tocilizumab 80 mg/4 mL (20 mg/mL) solution 0 mg IV Q28D RF: 0 warfarin [Jantoven] 4 mg tablet See Rx Instructions .ROUTE .COMPLEX RF: 0 furosemide 40 mg tablet 60 mg PO DAILY RF: 0 sucralfate 100 mg/mL suspension 1 g PO BID PRN (Reason: .) RF: 0 folic acid 1 mg tablet 1 mg PO DAILY Qty: 90 RF: 1 ipratropium bromide 0.03 % spray,non-aerosol 2 sprays INTNAS BID PRN (Reason: Congestion) Qty: 30 RF: 1 (DME) blood-glucose meter [OneTouch Ultra2 Meter] Misc See Rx Instructions .ROUTE .MEDSUPPLY Qty: 1 RF: 0 lorazepam 0.5 mg tablet 0.5 mg PO BID PRN (Reason: anxiety) Qty: 60 RF: 2 cholecalciferol (vitamin D3) [Vitamin D3] 50 mcg (2,000 unit) capsule 2,000 unit PO QAM Qty: 90 RF: 3 Humalog KwikPen Insulin 100 unit/mL insulin pen See Rx Instructions SQ AC Qty: 15 RF: 5 spironolactone 50 mg tablet 50 mg PO QAM Qty: 90 RF: 3 (DME) pen needle, diabetic [BD Ultra-Fine Micro Pen Needle] 32 gauge x 1/4" needle See Dose Instructions .ROUTE .MEDSUPPLY Qty: 100 RF: 5 simvastatin 20 mg tablet 20 mg PO DAILY Qty: 90 RF: 1 (DME) blood sugar diagnostic Strip See Dose Instructions .ROUTE .MEDSUPPLY Qty: 100 RF: 5 montelukast 10 mg tablet 10 mg PO DAILY Qty: 90 RF: 1 metoprolol succinate 200 mg tablet extended release 24 hr 200 mg PO DAILY Qty: 90 RF: 1 pantoprazole 40 mg tablet,delayed release (DR/EC) 40 mg PO BID Qty: 180 RF: 3 methotrexate sodium 2.5 mg tablet 5 mg PO WK RF: 0 calcitriol 0.25 mcg capsule 0.25 mcg PO DAILY Qty: 90 RF: 3 meclizine 25 mg tablet 25 mg PO TID PRN (Reason: dizziness) Qty: 30 RF: 0 buspirone 5 mg tablet 5 mg PO BID PRN (Reason: anxiety) Qty: 60 RF: 0 Annamaria-C with Bioflavonoids 1,000-200 mg Tablet 1 tab PO QAM RF: 0 calcium polycarbophil [Fiber (calcium polycarbophil)] 625 mg tablet 650 mg PO QAM PRN (Reason: constipation) RF: 0 polyethylene glycol 3350 [Miralax] 17 gram/dose Powder 17 g PO BID RF: 0 Toujeo SoloStar U-300 Insulin 300 unit/mL (1.5 mL) insulin pen 22 unit subcut QAM RF: 0 diclofenac sodium [Voltaren Arthritis Pain] 1 % Gel 2 g EXT QID Qty: 100 RF: 0 Discontinued doxycycline hyclate 100 mg tablet 100 mg PO BID 7 Days Qty: 14 RF: 0 Discharge Orders: Discharge Order (Routine); Ordered 04/18/21 Ordered By: Nato Sierra/Other Patient Handouts: High Blood Sugar (Hyperglycemia), Managing Type 2 Diabetes, Special Foot Care for Diabetes Admission Data Admit Date/Time: 04/15/21 18:01 Attending Provider: Nato Mcbride Admit Provider: Jeramy Witt Primary Care Provider: Neftaly Allison III Other Interventions: Discharge Summary Assessment (RN) Last Done: 04/18/21 15:03 Coding Level of Care Code D/C DAY MANAGEMENT >30 MINS Diagnoses COVID-19 U07.1 Pneumonia J18.9 Rheumatoid arthritis M06.9 Hyponatremia E87.1 Paroxysmal atrial fibrillation I48.0 Anticoagulant long-term use Z79.01 Supratherapeutic INR R79.1 Chronic systolic congestive heart failure I50.22 DMII (diabetes mellitus, type 2) E11.9 Chronic kidney disease, stage IV (severe) N18.4 Biventricular ICD (implantable cardioverter-defibrillator) in place Z95.810 Dyslipidemia E78.5 Hypertension I10 GERD (gastroesophageal reflux disease) K21.9
[2021-04-19] MEDS ORDERED: metHOTREXate sodium 2.5 MG TAB PO SCH (09:00)
== END 2021-04-18 16:00 | disposition home or self-care (01) | DRG 177 ==
LOC: ED 13:59 → 2E 18:01 → SUATTDRO 18:01 → 2E 19:59

== ENCOUNTER 2022-05-10 19:25 | Inpatient (IN) ==
--- NOTE | 2022-05-10 19:47 | Emergency Department Note ---
Impression & Plan Ambulatory dysfunction ADMIT ED Provider Note HPI: The patient is an 87-year-old female who presents emergency department with a chief complaint of lower back pain and ambulatory dysfunction. Patient states that she has a history of chronic lower back pain, patient states over the past several weeks her pain has been getting worse to the point over the past several days where she is having difficulty walking at home. Patient states that she feels as if her bilateral lower extremities are weak. At times she does get a numb sensation as well in her bilateral lower extremities. On arrival here to the ED the patient is hemodynamically stable, she is in no acute distress on my initial evaluation. States her pain is minimal at rest but does worsen with exertion. Patient states she was concerned that she may need to be placed in a physical rehabilitation facility as she is not able to ambulate at home. ROS: -MSK: Acute on chronic lower back pain, ambulatory dysfunction -Neuro: Bilateral lower extremity weakness/numbness *10 point review systems was conducted and is otherwise negative unless stated above *Outpatient medications and allergy history reviewed PE: General: Alert HEENT: Normocephalic, trachea midline Eyes: Extraocular eye movement is intact, no scleral erythema Pulmonary: Clear to auscultation bilaterally, no wheezing Cardio: Regular rate and rhythm GI: Abdomen is soft, nontender : No suprapubic tenderness MSK: No evidence of trauma or malformation of the extremities, no edema Skin: No evidence of rash Neuro: Alert, no focal deficits Psychiatric: Cooperative cardiac monitor: - An order was placed for continuous cardiac monitoring - Patient was noted to be in sinus rhythm with a rate of 90 CT HEAD: Involutional and chronic small vessel ischemic changes. No ICH, mass-effect, or edema. No skull fracture. Radiologist: Lise Jimenez M.D. CT L SPINE: Airspace opacity left lower lobe may represent pneumonia. Osteopenia and degenerative changes. No acute fracture or subluxation. Multilevel degenerative disc disease, severe at L3-L4 and L4-L5. Multilevel facet arthropathy associated with trace anterolisthesis of L2 on L3, and 5 mm anterolisthesis of L3 on L4. There is multilevel spinal canal and foraminal narrowing. At L2-L3 disc bulging, facet arthropathy, ligamentum flavum thickening produces severe central spinal canal stenosis. There may be a disc extrusion at this level, but characterization is limited by CT. MRI may be performed. There is moderate bilateral foraminal narrowing at this level. At L3-L4, there is severe disc and facet degeneration with degenerative anterolisthesis of L3. There is severe spinal canal stenosis and severe bilateral foraminal narrowing. At L4-L5, severe disc and facet degeneration produces mild to moderate central spinal canal stenosis and severe bilateral foraminal narrowing. At L5-S1, left foramen is severely narrowed. Spinal canal and right foramen are patent. Radiologist: Lise Jimenez M.D. Study ready at 20:44 and initial results transmitted at 21:25 Interventions provided in ED: -IV morphine, IV Zofran Medical Decision Making: Patient presented to the emergency department with ambulatory dysfunction and acute on chronic lower back pain. CT imaging of the head does not show any evidence of any acute intracranial abnormality, no evidence of subacute stroke. CT imaging of the lumbar spine shows evidence of spinal stenosis, multiple degenerative changes noted throughout the lumbar spine. No acute fractures. There is mention of some airspace opacity in the left lower lobe possibly re presentative of pneumonia on CT imaging of the lumbar spine. Chest x-ray does not show any obvious infiltrate in the left lower lobe although difficult to visualize. Upon chart review, patient did test positive for influenza A on 05/06, she is currently on Tamiflu. Lab work shows evidence of a significant leukocytosis of greater than 17,000, given this blood cultures were ordered in the ED and patient was started on cefepime and azithromycin for possible bacterial pneumonia coverage. On my r eassessment patient states her pain is improved however she has had ambulatory dysfunction at home related to her chronic degenerative back pain, she does not feel safe going home given her age and multiple ongoing issues I do feel that she is fit for admission, IV antibiotics, and PT/OT consultation for possible [facility] patient and her family at the bedside are in agreement to the above plan and the patient was admitted in stable condition for further care. Diagnosis: 1. Acute on chronic lower back pain 2. Ambulatory dysfunction 3. Left lower lobe pneumonia 4. Leukocytosis 5. Recent influenza A positive Disposition: Admission Eduardo Tamez DO Emergency Medicine Past Med/Surg History Medical History Anxiety and depression Atrial fibrillation Biventricular ICD (implantable cardioverter-defibrillator) in place (2016) Chronic diarrhea Chronic systolic congestive heart failure COVID-19 (~03/2021) Degenerative disc disease Diabetes mellitus, type 2 Diabetic neuropathy Dyslipidemia GERD without esophagitis History of basal cell carcinoma Hx of squamous cell carcinoma Hypertension Non-ischemic cardiomyopathy PAC (premature atrial contraction) Rheumatoid arthritis Sensorineural hearing loss (SNHL) of both ears Stage III chronic kidney disease Third degree AV block Surgical History History of anesthesia reaction History of cataract surgery History of colonoscopy History of esophagogastroduodenoscopy (EGD) History of tooth extraction S/P cholecystectomy S/P total knee arthroplasty S/P tubal ligation Family History Father Heart disease Mother Diabetes Heart disease Myocardial infarction Family history of diabetes mellitus Grandfather (Maternal) Prostate cancer Family history of diabetes mellitus Other Family history non-contributory No family history of adverse response to anesthesia Denies family history of Ovarian cancer Breast cancer Colorectal cancer Social History (Updated 04/27/22 @ 11:42 by Tori Cook, PT, CPED) Smoking Status: Never smoker Second Hand Exposure: Yes ( A CHILD); Hx Alcohol Use: No Hx Substance Use: No Preferred Language: Romanian Communication Ability: Effective Visual Impairment: No Limitations Hearing Ability: Use of Hearing Aid 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 Beliefs That Will Affect Care: None marital status: / current occupational status: retired Feels Safe at Home: Yes Childhood Exposure to Second-Hand Smoke: Yes Dental Care, Regularly: Yes Physical Activity Frequency: Does not Exercise Seatbelt Use: always Sunscreen Use: Yes Assistive Devices: Hearing Aid - Bilateral Allergies Allergies Allergy/AdvReac Type Severity Reaction Status Date / Time amiodarone AdvReac Intermediate gi distress Verified 04/30/22 09:26 aspirin AdvReac Intermediate history of Verified 04/30/22 09:26 ulcers nortriptyline AdvReac Unknown DOESN'T Verified 04/30/22 09:26 REMEMBER Home Meds Home Medications Medication Instructions Recorded Confirmed methotrexate sodium 2.5 mg tablet 5 mg PO WK 03/30/19 05/10/22 vitamin B complex 1 tab PO DAILY 07/02/21 05/10/22 folic acid 1 mg tablet 2 mg PO DAILY 09/04/21 05/10/22 warfarin 4 mg tablet (Jantoven) See Rx Instructions PO UD 04/29/22 05/10/22 montelukast 10 mg tablet 10 mg PO HS 05/10/22 05/10/22 Previous Rx's Medication Instructions Recorded ipratropium bromide 21 mcg (0.03 2 sprays intranasal BID PRN 09/29/19 %) nasal spray Congestion #30 mL meclizine 25 mg tablet 25 mg PO TID PRN dizziness #30 tabs 12/20/19 cholecalciferol (vitamin D3) 50 2,000 unit PO QAM #90 caps 03/25/20 mcg (2,000 unit) capsule (Vitamin D3) diclofenac sodium 1 % topical gel 2 g EXT QID #100 grams 01/28/21 (Voltaren Arthritis Pain) buspirone 5 mg tablet 5 mg PO BID PRN anxiety #60 tabs 04/11/21 spironolactone 50 mg tablet 50 mg PO QAM #90 tabs 05/05/21 calcitriol 0.25 mcg capsule 0.25 mcg PO DAILY #90 caps 05/27/21 insulin lispro 100 unit/mL See Rx Instructions subcut AC #15 06/20/21 subcutaneous pen (Humalog KwikPen mL (U-100) Insulin) blood sugar diagnostic #100 ea 09/01/21 pen needle, diabetic 32 gauge x #100 ea 09/01/21 1/4" (BD Ultra-Fine Micro Pen Needle) atorvastatin 10 mg tablet 10 mg PO DAILY #90 tabs 09/11/21 flash glucose scanning reader #2 ea 10/16/21 (FreeStyle Goldie 14 Day [place]) flash glucose sensor (FreeStyle #2 ea 10/16/21 Goldie 14 Day Sensor kit) furosemide 40 mg tablet See Rx Instructions .Route 11/18/21 .COMPLEX #135 tabs insulin glargine U-300 conc 300 25 unit (0.0833 mL) subcut QAM 90 01/06/22 unit/mL (1.5 mL) subcutaneous pen days #9 mL (Toujeo SoloStar U-300 Insulin) blood sugar diagnostic #100 ea 02/17/22 walker #1 ea 02/17/22 metoprolol succinate 200 mg 200 mg PO DAILY #90 tabs 02/25/22 tablet,extended release 24 hr pantoprazole 40 mg tablet,delayed 40 mg PO BID #180 tabs 02/25/22 release gabapentin 100 mg capsule 100 mg PO TID #90 caps 04/30/22 lorazepam 0.5 mg tablet 0.5 mg PO BID PRN anxiety #60 tabs 04/30/22 miscellaneous medical supply #1 ea 05/04/22 benzonatate 200 mg capsule 200 mg PO TID PRN cough #30 caps 05/06/22 Results & Data (ED) Vital Signs Vital Signs - 24 hr 05/10/22 19:34 05/10/22 19:34 05/10/22 20:06 Temperature 36.8 C Temperature Source Oral Pulse Rate 83 Pulse Rate [Apical] 81 Pulse Rhythm Regular Regular Pulse Rhythm [Apical] Regular Pulse Strength Normal Pulse Strength [Apical] Normal Respiratory Rate 20 20 Respiratory Effort / Characteristics Non-Labored Non-Labored Respiratory Depth Normal Normal Respiratory Pattern Regular Regular Blood Pressure 130/81 Blood Pressure [Right Arm] Blood Pressure Mean 97 Blood Pressure Mean [Right Arm] Blood Pressure Position Lying Pulse Oximetry 92 91 95 Oxygen Delivery Method Room Air Room Air Room Air Oxygen Flow Rate Sepsis Recent Fever Within 48 Hours No Sepsis New/Unexplained Change in Mental Status No Sepsis Action Taken by Nursing No Action Required 05/10/22 20:30 05/10/22 22:22 Temperature Temperature Source Pulse Rate Pulse Rate [Apical] 81 86 Pulse Rhythm Pulse Rhythm [Apical] Pulse Strength Pulse Strength [Apical] Respiratory Rate 20 20 Respiratory Effort / Characteristics Non-Labored Respiratory Depth Normal Respiratory Pattern Blood Pressure Blood Pressure [Right Arm] 132/79 134/73 Blood Pressure Mean Blood Pressure Mean [Right Arm] 96 93 Blood Pressure Position Pulse Oximetry 95 93 Oxygen Delivery Method Room Air Nasal Cannula Oxygen Flow Rate 2 Sepsis Recent Fever Within 48 Hours Sepsis New/Unexplained Change in Mental Status Sepsis Action Taken by Nursing Laboratory Data Result diagrams: 05/10/22 20:03 05/10/22 20:03 Lab Results 05/10/22 05/10/22 05/10/22 Range/Units 20:03 20:03 20:03 WBC 17.10 H (4.8-10.8) K/ul RBC 4.03 (3.93-5.22) M/uL Hgb 13.1 (12.0-16.0) g/dl Hct 38.7 (34.1-44.9) % MCV 96.0 (80.0-100.0) fL MCH 32.5 (25.0-34.0) pg MCHC 33.9 (32.0-36.0) g/dL RDW Std Deviation 49.6 H (36.4-46.3) fL RDW Coeff of Shai 14.6 H (11.5-14.5) % Plt Count 155 (130-400) K/uL MPV 10.0 (9.4-12.3) fL Immature Gran % (Auto) 0.5 % Neut % (Auto) 89.1 % Lymph % (Auto) 5.6 % Dickinson % (Auto) 4.0 % Eos % (Auto) 0.6 % Baso % (Auto) 0.2 % Neut # (Auto) 15.24 H (1.4-6.5) K/uL Lymph # (Auto) 0.95 L (1.2-3.4) K/uL Dickinson # (Auto) 0.69 (0.24-0.82) K/uL Eos # (Auto) 0.11 (0-0.50) K/uL Baso # (Auto) 0.03 (0-0.2) K/uL Immature Gran # (Auto) 0.08 H (0.00-0.02) K/uL PT Cancelled INR Cancelled Sodium 132 L (136-145) mmol/L Potassium 4.6 (3.5-5.1) mmol/L Chloride 95 L (98-107) mmol/L Carbon Dioxide 29 (21-32) mmol/L Anion Gap 8 (3-11) BUN 46 H (6-23) mg/dl Creatinine 2.22 H (0.6-1.2) mg/dl Est Cr Clr Drug Dosing 21.4 ml/min Est GFR ( Amer) 22.7 ml/min Est GFR (Non-Af Amer) 19.6 ml/min BUN/Creatinine Ratio 20.7 H (10-20) Glucose 288 H (70-99(Fasting)) mg/dl Calcium 9.0 (8.5-10.1) mg/dl Total Bilirubin 1.0 (0.2-1.0) mg/dl AST 45 H (13-39) U/L ALT 28 (7-52) U/L Alkaline Phosphatase 59 (34-104) U/L Total Protein 6.6 (6.0-8.3) gm/dl Albumin 4.0 (3.4-5.0) gm/dl Globulin 2.6 (2.5-4.0) gm/dl Albumin/Globulin Ratio 1.5 (0.9-2) SARS-CoV-2, RNA, NAAT (NEGATIVE) 05/10/22 05/10/22 Range/Units 21:13 21:21 WBC (4.8-10.8) K/ul RBC (3.93-5.22) M/uL Hgb (12.0-16.0) g/dl Hct (34.1-44.9) % MCV (80.0-100.0) fL MCH (25.0-34.0) pg MCHC (32.0-36.0) g/dL RDW Std Deviation (36.4-46.3) fL RDW Coeff of Shai (11.5-14.5) % Plt Count (130-400) K/uL MPV (9.4-12.3) fL Immature Gran % (Auto) % Neut % (Auto) % Lymph % (Auto) % Dickinson % (Auto) % Eos % (Auto) % Baso % (Auto) % Neut # (Auto) (1.4-6.5) K/uL Lymph # (Auto) (1.2-3.4) K/uL Dickinson # (Auto) (0.24-0.82) K/uL Eos # (Auto) (0-0.50) K/uL Baso # (Auto) (0-0.2) K/uL Immature Gran # (Auto) (0.00-0.02) K/uL PT 38.3 H INR 3.9 H Sodium (136-145) mmol/L Potassium (3.5-5.1) mmol/L Chloride (98-107) mmol/L Carbon Dioxide (21-32) mmol/L Anion Gap (3-11) BUN (6-23) mg/dl Creatinine (0.6-1.2) mg/dl Est Cr Clr Drug Dosing ml/min Est GFR ( Amer) ml/min Est GFR (Non-Af Amer) ml/min BUN/Creatinine Ratio (10-20) Glucose (70-99(Fasting)) mg/dl Calcium (8.5-10.1) mg/dl Total Bilirubin (0.2-1.0) mg/dl AST (13-39) U/L ALT (7-52) U/L Alkaline Phosphatase (34-104) U/L Total Protein (6.0-8.3) gm/dl Albumin (3.4-5.0) gm/dl Globulin (2.5-4.0) gm/dl Albumin/Globulin Ratio (0.9-2) SARS-CoV-2, RNA, NAAT NEGATIVE (NEGATIVE) Administered Medications Discontinued Medications Sodium Chloride (Nss 1000ml) 500 mls @ 999 mls/hr IV .Q31M ONE Stop: 05/10/22 22:46 Last Infusion: 05/10/22 22:47 Dose: 0 mls/hr Documented By: Admin: 05/10/22 22:17 Dose: 999 mls/hr Documented By: ES Cefepime HCl (Maxipime) 2,000 mg in 20 mls @ 5 mls/min IV NOW STA; Protocol Stop: 05/10/22 23:12 Last Admin: 05/10/22 23:48 Dose: 5 mls/min Documented By: AN Morphine Sulfate (Morphine Sulfate 4 Mg/Ml 1 Ml Carp\\Vial) 4 mg IV NOW STA Stop: 05/10/22 23:29 Last Admin: 05/10/22 23:47 Dose: 4 mg Documented By: AN Ondansetron HCl (Ondansetron Inj 2 Mg/Ml 2 Ml Vial) Confirm Administered Dose 4 mg .ROUTE .STK-MED ONE Stop: 05/10/22 23:34 Last Admin: 05/10/22 23:39 Dose: Not Given Documented By: AN Ondansetron HCl (Ondansetron Inj 2 Mg/Ml 2 Ml Vial) 4 mg IV NOW STA Stop: 05/10/22 23:38 Last Admin: 05/10/22 23:47 Dose: 4 mg Documented By: AN Discharge Plan Visit Data Chief Complaint: Back Injury/Pain Stated Complaint: BACK PAIN/UNABLE TO AMBULATE/FALLING ED Provider: Eduardo Tamez Discharge Problem: Ambulatory dysfunction Forms Stand Alone Forms: My [facility] Prescriptions Prescriptions: No Action vitamin B complex Tablet 1 tab PO DAILY folic acid 1 mg tablet 2 mg PO DAILY Rx Instructions: per Dr. Gray warfarin [Jantoven] 4 mg tablet See Rx Instructions PO UD Rx Instructions: 4mg [facility] and 2 mg x 3 days per [facility] orally use as directed; ipratropium bromide 0.03 % spray,non-aerosol 2 sprays INTNAS BID PRN (Reason: Congestion) Qty: 30 1RF cholecalciferol (vitamin D3) [Vitamin D3] 50 mcg (2,000 unit) capsule 2,000 unit PO QAM Qty: 90 3RF spironolactone 50 mg tablet 50 mg PO QAM Qty: 90 3RF Label Comments: QAM calcitriol 0.25 mcg capsule 0.25 mcg PO DAILY Qty: 90 3RF Humalog KwikPen Insulin 100 unit/mL insulin pen See Rx Instructions SQ AC Qty: 15 5RF Rx Instructions: Inject 1 unit for every 40 mg/dL over 150 mg/dL SQ AC; (DME) blood sugar diagnostic Strip See Dose Instructions .ROUTE .MEDSUPPLY Qty: 100 5RF Rx Instructions: TEST BLOOD SUGAR THREE TIMES DAILY NEEDED (DME) pen needle, diabetic [BD Ultra-Fine Micro Pen Needle] 32 gauge x 1/4" needle See Dose Instructions .ROUTE .MEDSUPPLY Qty: 100 5RF Dose Instruction: As directed Rx Instructions: Test Four Times Daily OR As directed furosemide 40 mg tablet See Rx Instructions .ROUTE .COMPLEX Qty: 135 3RF Dose Instruction: take one tablet on wednesday, wednesday, , and wednesday and take 1 and a half tablets on wednesday, wednesday, and wednesday Rx Instructions: take one tablet on wednesday, wednesday, , and wednesday and take 1 and a half tablets on wednesday, wednesday, and wednesday (DME) maliha Dupree See Rx Instructions .MEDSUPPLY Qty: 1 0RF Rx Instructions: Jean Marie jett metoprolol succinate 200 mg tablet extended release 24 hr 200 mg PO DAILY Qty: 90 1RF Label Comments: QAM pantoprazole 40 mg tablet,delayed release (DR/EC) 40 mg PO BID Qty: 180 3RF (DME) miscellaneous medical supply Misc See Rx Instructions miscellaneous .MEDSUPPLY Qty: 1 0RF Rx Instructions: Transport wheelchair. As directed methotrexate sodium 2.5 mg tablet 5 mg PO WK Label Comments: takes 2 tabs (5mg) on Saturdays Rx Instructions: TAKES ON WEDNESDAY Cassy Garciaar U-300 Insulin 300 unit/mL (1.5 mL) insulin pen 25 unit subcut QAM 90 Days Qty: 9 3RF (DME) blood sugar diagnostic Strip See Rx Instructions .MEDSUPPLY Qty: 100 5RF Rx Instructions: Test blood glucose three times daily meclizine 25 mg tablet 25 mg PO TID PRN (Reason: dizziness) Qty: 30 0RF buspirone 5 mg tablet 5 mg PO BID PRN (Reason: anxiety) Qty: 60 0RF gabapentin 100 mg capsule 100 mg PO TID Qty: 90 2RF lorazepam 0.5 mg tablet 0.5 mg PO BID PRN (Reason: anxiety) Qty: 60 2RF Rx Instructions: May take 2-3 tablets HS PRN sleep. benzonatate 200 mg capsule 200 mg PO TID PRN (Reason: cough) Qty: 30 0RF atorvastatin 10 mg tablet 10 mg PO DAILY Qty: 90 3RF (DME) FreeStyle Goldie 14 Day [place] Misc See Rx Instructions .MEDSUPPLY Qty: 2 6RF Rx Instructions: Use to test blood glucose 3 times daily (DME) FreeStyle Goldie 14 Day Sensor Kit See Rx Instructions .MEDSUPPLY Qty: 2 6RF Rx Instructions: Use to test blood glucose 3 times daily diclofenac sodium [Voltaren Arthritis Pain] 1 % Gel 2 g EXT QID Qty: 100 0RF montelukast 10 mg tablet 10 mg PO HS Label Comments: QPM Referrals Referrals: Neftaly Allison III, CRNP [Primary Care Provider] -
[2022-05-10 20:16] LABS: Basophils # (auto) 0.03 K/uL (0-0.2); Basophils % (auto) 0.2 %; Eosinophils # (auto) 0.11 K/uL (0-0.50); Eosinophils % (auto) 0.6 %; Hematocrit (blood only) 38.7 % (34.1-44.9); Hemoglobin 13.1 g/dl (12.0-16.0); Immature Granulocytes # (auto) 0.08 K/uL (0.00-0.02); Immature Granulocytes % (auto) 0.5 %; Lymphocytes # (auto) 0.95 K/uL (1.2-3.4); Lymphocytes % (auto) 5.6 %; Mean Corpuscular Hemoglobin 32.5 pg (25.0-34.0); Mean Corpuscular Hgb Conc 33.9 g/dL (32.0-36.0); Monocytes # (auto) 0.69 K/uL (0.24-0.82); Neutrophils # (auto) 15.24 K/uL (1.4-6.5); Neutrophils % (auto) 89.1 %; Platelet Count 155 K/uL (130-400); RDW Coefficient of Variation 14.6 % (11.5-14.5); RDW Standard Deviation 49.6 fL (36.4-46.3); Red Blood Count 4.03 M/uL (3.93-5.22)
[2022-05-10 20:37] LABS: Potassium 4.6 mmol/L (3.5-5.1)
[2022-05-10 20:38] LABS: Albumin Globulin Ratio 1.5 (0.9-2); BUN Creatinine Ratio 20.7 (10-20); Creatinine Clr Calc Pharmacy 21.4 ml/min; Est GFR (African American) 22.7 ml/min; Est GFR (Non-African American) 19.6 ml/min; Globulin 2.6 gm/dl (2.5-4.0); Total Protein 6.6 gm/dl (6.0-8.3)
[2022-05-10 21:48] LABS: INR 3.9 (0.9-1.1); Prothrombin Time 38.3 Seconds (9.0-12.0)
[2022-05-10] MEDS ORDERED: SODIUM CHLORIDE 0.9% 1000ML 500 ML IV ONE (22:16)
[2022-05-10] MEDS ORDERED: AZITHROMYCIN 500 MG in DEXTROSE 5% 250 ML IV STA (23:09)
[2022-05-10] MEDS ORDERED: CEFEPIME 2,000 MG/20 ML VIAL IV STA (23:09)
[2022-05-10] MEDS ORDERED: MoRPHine SULFATE 4 MG/ML 1 ML CARP\\VIAL IV STA (23:28)
[2022-05-10] MEDS ORDERED: ONDANSETRON INJ 2 MG/ML 2 ML VIAL ONE (23:33)
[2022-05-10] MEDS ORDERED: ONDANSETRON INJ 2 MG/ML 2 ML VIAL IV STA (23:37)
--- NOTE | 2022-05-11 00:01 | History & Physical Report ---
Date of Service May 11, 2022 The patient was seen and examined on 05/10/22 Assessment & Plan (1) Ambulatory dysfunction: Plan: Ambulatory dysfunction- Multifactorial: Degenerative lumbar central and foraminal spinal stenosis, rheumatoid arthritis, additional symptomatology produced by influenza A (2) Chronic kidney disease, stage IV (severe): Plan: Creatinine 2.22 upon admission, with range 1.90-2.73 Continue to follow laboratories serially Continue calcitriol, cholecalciferol (3) GERD (gastroesophageal reflux disease): Plan: Continue pantoprazole 40 mg p.o. twice daily (4) Rheumatoid arthritis: Plan: On methotrexate 5 mg weekly as outpatient Continue folic acid, diclofenac sodium topically as needed (5) DMII (diabetes mellitus, type 2): Plan: Continue usual dosing of glargine 25 units subcu every morning Placed on Accu-Cheks before meals and at bedtime with NovoLog SSI (6) Supratherapeutic INR: Plan: Atrial fibrillation/nonischemic cardiomyopathy/biventricular ICD/hypertension- INR 3.9 upon admission Hold dose tonight, recheck in a.m., and dose warfarin when INR less than 3 Continue metoprolol succinate, spironolactone Hold furosemide (7) Pneumonia: Plan: Left lower lobe pneumonia- Noted on CT Likely secondary to decreased immune state secondary to influenza Continue cefepime 2 g IV every 12 hours and azithromycin 500 mg IV daily begun in the ED (8) Obstructive sleep apnea of adult: (9) Non-ischemic cardiomyopathy: (10) Biventricular ICD (implantable cardioverter-defibrillator) in place: (11) Degenerative lumbar spinal stenosis: (12) Anxiety and depression: Plan: Continue lorazepam (13) Atrial fibrillation: (14) Influenza A: Plan: Completed her fourth day of modified Tamiflu 45 mg daily dose for 4 days yesterday (15) Chronic anticoagulation: (16) SNHL (sensorineural hearing loss): (17) Dyslipidemia: Plan: Continue atorvastatin (18) Hypertension: (19) Diabetic neuropathy: Plan: Continue gabapentin History of Present Illness Chief Complaint: The patient presents to the emergency department with complaint of feeling generally weak, with low back pain, and bilateral lower extremity pain, causing significant ambulatory dysfunction, even with her walker. She was recently diagnosed with influenza A on 01/03/2022, and received Tamiflu 45 mg daily x4 days for reduced renal dosing. She received a decreased time of dosing of Tamiflu and said usual 5 days, due to decreased availability of the 30 mg dose. Primary Care Provider: Neftaly Allison, III, [employer] WORK[employer] The patient is an 87-year-old female with a past medical history including hypoglycemia due to insulin, diabetic neuropathy, CKD stage IV, GERD, RA, diabetes mellitus type 2, supratherapeutic INR, hyponatremia, respiratory failure due to COVID-19 infection 04/03, GERD, secondary hyperparathyroidism, SNHL of both ears, paroxysmal defibrillation, long-term anticoagulant use, ANN, ventricular bigeminy, dyslipidemia, hypertension and biventricular ICD in place. She has had chronic low back pain, and has resorted to using a walker to help with balance. She has been going to [facility]. She was diagnosed with influenza A on 05/06/2022, and is received 4 days of modified Tamiflu dosing as noted. She does report some shortness of breath, but this has been an ongoing issue, more recently worsened. She denies any productive cough. Allergies Allergy/AdvReac Type Severity Reaction Status Date / Time amiodarone AdvReac Intermediate gi distress Verified 04/30/22 09:26 aspirin AdvReac Intermediate history of Verified 04/30/22 09:26 ulcers nortriptyline AdvReac Unknown DOESN'T Verified 04/30/22 09:26 REMEMBER Home Medications Medication Instructions Recorded Confirmed Type methotrexate sodium 2.5 mg tablet 5 mg PO WK 03/30/19 05/10/22 History ipratropium bromide 21 mcg (0.03 2 sprays intranasal BID PRN 09/29/19 05/10/22 Rx %) nasal spray Congestion #30 mL meclizine 25 mg tablet 25 mg PO TID PRN dizziness #30 tabs 12/20/19 05/10/22 Rx cholecalciferol (vitamin D3) 50 2,000 unit PO QAM #90 caps 03/25/20 05/10/22 Rx mcg (2,000 unit) capsule (Vitamin D3) diclofenac sodium 1 % topical gel 2 g EXT QID #100 grams 01/28/21 05/10/22 Rx (Voltaren Arthritis Pain) buspirone 5 mg tablet 5 mg PO BID PRN anxiety #60 tabs 04/11/21 05/10/22 Rx spironolactone 50 mg tablet 50 mg PO QAM #90 tabs 05/05/21 05/10/22 Rx calcitriol 0.25 mcg capsule 0.25 mcg PO DAILY #90 caps 05/27/21 05/10/22 Rx insulin lispro 100 unit/mL See Rx Instructions subcut AC #15 06/20/21 05/10/22 Rx subcutaneous pen (Humalog KwikPen mL (U-100) Insulin) vitamin B complex 1 tab PO DAILY 07/02/21 05/10/22 History blood sugar diagnostic #100 ea 09/01/21 04/30/22 Rx pen needle, diabetic 32 gauge x #100 ea 09/01/21 04/30/22 Rx 1/4" (BD Ultra-Fine Micro Pen Needle) folic acid 1 mg tablet 2 mg PO DAILY 09/04/21 05/10/22 History atorvastatin 10 mg tablet 10 mg PO DAILY #90 tabs 09/11/21 05/10/22 Rx flash glucose scanning reader #2 ea 10/16/21 04/30/22 Rx (FreeStyle Goldie 14 Day Whiting) flash glucose sensor (FreeStyle #2 ea 10/16/21 04/30/22 Rx Goldie 14 Day Sensor kit) furosemide 40 mg tablet See Rx Instructions .Route 11/18/21 05/10/22 Rx .COMPLEX #135 tabs insulin glargine U-300 conc 300 25 unit (0.0833 mL) subcut QAM 90 01/06/22 05/10/22 Rx unit/mL (1.5 mL) subcutaneous pen days #9 mL (Cassy SolJosiasar U-300 Insulin) blood sugar diagnostic #100 ea 02/17/22 04/30/22 Rx walker #1 ea 02/17/22 04/30/22 Rx metoprolol succinate 200 mg 200 mg PO DAILY #90 tabs 02/25/22 05/10/22 Rx tablet,extended release 24 hr pantoprazole 40 mg tablet,delayed 40 mg PO BID #180 tabs 02/25/22 05/10/22 Rx release warfarin 4 mg tablet (Jantoven) See Rx Instructions PO UD 04/29/22 05/10/22 History gabapentin 100 mg capsule 100 mg PO TID #90 caps 04/30/22 05/10/22 Rx lorazepam 0.5 mg tablet 0.5 mg PO BID PRN anxiety #60 tabs 04/30/22 05/10/22 Rx miscellaneous medical supply #1 ea 05/04/22 Rx benzonatate 200 mg capsule 200 mg PO TID PRN cough #30 caps 05/06/22 05/10/22 Rx montelukast 10 mg tablet 10 mg PO HS 05/10/22 05/10/22 History Past Med/Surg History Medical History (Updated 05/11/22 @ 03:16 by Cruz Martinez MD) Anxiety and depression Atrial fibrillation Biventricular ICD (implantable cardioverter-defibrillator) in place (2015) [employer]>GETS CHECKED BY DR. VARGAS Chronic diarrhea Chronic systolic congestive heart failure COVID-19 (~03/2021) Degenerative disc disease Degenerative lumbar spinal stenosis Diabetes mellitus, type 2 Diabetic neuropathy Dyslipidemia GERD without esophagitis History of basal cell carcinoma Hx of squamous cell carcinoma Hypertension Non-ischemic cardiomyopathy PAC (premature atrial contraction) Rheumatoid arthritis Sensorineural hearing loss (SNHL) of both ears Stage III chronic kidney disease Third degree AV block Surgical History History of anesthesia reaction CONFUSION WITH GALLBLADDER REMOVAL, AWARENESS DURING COLONOSCOPY History of cataract surgery RT/LEFT History of colonoscopy History of esophagogastroduodenoscopy (EGD) History of tooth extraction S/P cholecystectomy S/P total knee arthroplasty RT/LEFT S/P tubal ligation Family History Father Heart disease Mother Diabetes Heart disease Myocardial infarction Family history of diabetes mellitus Grandfather (Maternal) Prostate cancer Family history of diabetes mellitus Other Family history non-contributory No family history of adverse response to anesthesia Denies family history of Ovarian cancer Breast cancer Colorectal cancer Social History (Updated 04/27/22 @ 11:42 by Tori Cook PT, CPED) Smoking Status: Never smoker Second Hand Exposure: Yes ( A CHILD); Hx Alcohol Use: No Hx Substance Use: No Preferred Language: Andorran Communication Ability: Effective Visual Impairment: No Limitations Hearing Ability: Use of Hearing Aid Binder Sorter Required: No Beliefs That Will Affect Care: None marital status: / current occupational status: retired Feels Safe at Home: Yes Childhood Exposure to Second-Hand Smoke: Yes Dental Care, Regularly: Yes Physical Activity Frequency: Does not Exercise Seatbelt Use: always Sunscreen Use: Yes Assistive Devices: Hearing Aid - Bilateral Review of Systems Review of Systems: The patient denies chest pain, palpitations, cough, lower extremity swelling, sore throat, fevers, chills, sweats, nausea, vomiting, diarrhea , constipation, abdominal pain, pelvic pain, blood in urine or stool, dysuria, urinary frequency or urgency, lightheadedness, dizziness, headache, memory loss, loss of consciousness, rash, abnormal bruising or bleeding, focal or generalized weakness, numbness or tingling in arms, neck pain, or night sweats. The review of systems is otherwise negative other than for that already noted above, and at least 10 systems have been reviewed. Physical Exam Physical Exam: The patient is awake, alert and oriented 3, well developed and well nourished, normocephalic and atraumatic, lying in bed and in no acute distress. HEENT--PERRL, EOMI, mucous membranes and oropharynx mildly dry. Neck--supple. No JVD. No bruits. Thyroid normal, trachea midline, no adenopathy. Heart--normal S1 and S2. No murmurs, rubs or gallops. Lungs-- Decreased breath sounds at bases bilaterally. No respiratory distress, no accessory muscle use. Abdomen--normal bowel sounds and soft. Nontender. Nondistended. Extremities--no cyanosis or clubbing. No edema. Dermatologic--normal skin turgor, normal color, no abnormal lymph nodes, no rash. Neurologic--cranial nerves II through XII grossly intact. Rheumatologic--limited exam due to pain Psychiatric--normal affect. Results & Data Results & Data ([facility]) Vital Signs (Past 12 Hours) Vital Signs Temp Pulse Pulse Resp BP BP Pulse Ox 05/10/22 22:22 86 20 134/73 93 05/10/22 20:30 81 20 132/79 95 05/10/22 20:06 95 05/10/22 19:34 81 20 91 05/10/22 19:34 36.8 C 83 20 130/81 92 O2 Del Method O2 Flow Rate 05/10/22 22:22 Nasal Cannula 2 05/10/22 20:30 Room Air 05/10/22 20:06 Room Air 05/10/22 19:34 Room Air 05/10/22 19:34 Room Air Laboratory Results Laboratory Results WBC 17.10 K/ul (4.8-10.8) H 05/10/22 20:03 RBC 4.03 M/uL (3.93-5.22) 05/10/22 20:03 Hgb 13.1 g/dl (12.0-16.0) 05/10/22 20:03 Hct 38.7 % (34.1-44.9) 05/10/22 20:03 MCV 96.0 fL (80.0-100.0) 05/10/22 20:03 MCH 32.5 pg (25.0-34.0) 05/10/22 20: MCHC 33.9 g/dL (32.0-36.0) 05/10/22 20:03 RDW Std Deviation 49.6 fL (36.4-46.3) H 05/10/22 20:03 RDW Coeff of Shai 14.6 % (11.5-14.5) H 05/10/22 20:03 Plt Count 155 K/uL (130-400) 05/10/22 20:03 MPV 10.0 fL (9.4-12.3) 05/10/22 20:03 Immature Gran % (Auto) 0.5 % 05/10/22 20: Neut % (Auto) 89.1 % 05/10/22 20: Lymph % (Auto) 5.6 % 05/10/22 20:03 Lasalle % (Auto) 4.0 % 05/10/22 20: Eos % (Auto) 0.6 % 05/10/22 20:03 Baso % (Auto) 0.2 % 05/10/22 20:03 Neut # (Auto) 15.24 K/uL (1.4-6.5) H 05/10/22 20: Lymph # (Auto) 0.95 K/uL (1.2-3.4) L 05/10/22 20: [place]alle # (Auto) 0.69 K/uL (0.24-0.82) 05/10/22 20: Eos # (Auto) 0.11 K/uL (0-0.50) 05/10/22 20:03 Baso # (Auto) 0.03 K/uL (0-0.2) 05/10/22 20:03 Immature Gran # (Auto) 0.08 K/uL (0.00-0.02) H 05/10/22 20:03 PT 38.3 Seconds (9.0-12.0) H 05/10/22 21:13 INR 3.9 (0.9-1.1) H 05/10/22 21:13 Sodium 132 mmol/L (136-145) L 05/10/22 20:03 Potassium 4.6 mmol/L (3.5-5.1) 05/10/22 20:03 Chloride 95 mmol/L (98-107) L 05/10/22 20:03 Carbon Dioxide 29 mmol/L (21-32) 05/10/22 20:03 Anion Gap 8 (3-11) 05/10/22 20:03 BUN 46 mg/dl (6-23) H 05/10/22 20:03 Creatinine 2.22 mg/dl (0.6-1.2) H 05/10/22 20:03 Est Cr Clr Drug Dosing 21.4 ml/min 05/10/22 20:03 Est GFR ( Amer) 22.7 ml/min 05/10/22 20:03 Est GFR (Non-Af Amer) 19.6 ml/min 05/10/22 20:03 BUN/Creatinine Ratio 20.7 (10-20) H 05/10/22 20:03 Glucose 288 mg/dl (70-99(Fasting)) H 05/10/22 20:03 Calcium 9.0 mg/dl (8.5-10.1) 05/10/22 20:03 Total Bilirubin 1.0 mg/dl (0.2-1.0) 05/10/22 20:03 AST 45 U/L (13-39) H 05/10/22 20:03 ALT 28 U/L (7-52) 05/10/22 20:03 Alkaline Phosphatase 59 U/L (34-104) 05/10/22 20:03 Total Protein 6.6 gm/dl (6.0-8.3) 05/10/22 20:03 Albumin 4.0 gm/dl (3.4-5.0) 05/10/22 20:03 Globulin 2.6 gm/dl (2.5-4.0) 05/10/22 20:03 Albumin/Globulin Ratio 1.5 (0.9-2) 05/10/22 20:03 Urine Color Yellow 05/10/22 23:50 Urine Appearance Clear (Clear) 05/10/22 23:50 Urine pH 5.5 (4.5-7.5) 05/10/22 23:50 Ur Specific [place] 1.009 (1.000-1.030) 05/10/22 23:50 Urine Protein Negative (Negative) 05/10/22 23:50 Urine Glucose (UA) 2+ (Negative) H 05/10/22 23:50 Urine Ketones Negative (Negative) 05/10/22 23:50 Urine Blood Negative (Negative) 05/10/22 23:50 Urine Nitrite Positive (Negative) A 05/10/22 23:50 Urine Bilirubin Negative (Negative) 05/10/22 23:50 Urine Urobilinogen Negative (Negative) 05/10/22 23:50 Ur Leukocyte Esterase 1+ (Negative) H 05/10/22 23:50 Urine WBC (Auto) 1-5 /hpf (0-5) 05/10/22 23:50 Urine RBC (Auto) 0-4 /hpf (0-4) 05/10/22 23:50 U Hyaline Cast (Auto) 0 /lpf (0-5) 05/10/22 23:50 U Epithel Cells (Auto) 5-10 /lpf (0-5) H 05/10/22 23:50 Urine Bacteria (Auto) 4+ (Negative) H 05/10/22 23:50 SARS-CoV-2, RNA, NAAT NEGATIVE (NEGATIVE) 05/10/22 21:21 Diagnostic Findings [facility] Patient: SWETHA MCCLOUD (Female) : 39 Status: ER Date: 05/10/22 20:41 Room #: History: left extremity weakness Slices: 68 Priors: Tech: IsaacAbner @ [phone] Exams: CT HEAD Contrast: Accession Numbers: [id number] Referring Physician: JANELLE CALL Preliminary Findings Only See Final Report For Complete Findings CT HEAD: Involutional and chronic small vessel ischemic changes. No ICH, mass-effect, or edema. No skull fracture. Radiologist: Lise Jimenez M.D. Study ready at 20:44 and initial results transmitted at 21:19 *This report constitutes a preliminary interpretation only. Non-acute findings felt to be unrelated to the clinical presentation may not be discussed in this report. The study will be interpreted and a final report will be generated by the local Radiologist the following shift. To reach the [facility] radiology department call [phone]. If a discrepancy is found between the preliminary and final interpretations of this study, please notify us via our Client Portal at [email or web address], under QA Exams. You can also fax this report with a description of the discrepancy, or include the final report, to our daytime fax number [phone]. If faxing, please indicate the severity of discrepancy using one of the following categories: [ ] 1 - Agree/Informational [ ] 2 - Unlikely to Affect Management [ ] 3 - Possible Eventual Change of Management [ ] 4 - Probable Immediate Change of Management For all other patient related information, please fax us at [phone]. [id number] [facility] Patient: SWETHA MCCLOUD (Female) : 39 Status: ER Date: 05/10/22 20:42 Room #: History: chronic back pain Slices: [id number] Priors: Tech: Abner Gray @ [phone] Exams: CT L SPINE Contrast: Accession Numbers: [id number] Referring Physician: JANELLE CALL Preliminary Findings Only See Final Report For Complete Findings CT L SPINE: Airspace opacity left lower lobe may represent pneumonia. Osteopenia and degenerative changes. No acute fracture or subluxation. Multilevel degenerative disc disease, severe at L3-L4 and L4-L5. Multilevel facet arthropathy associated with trace anterolisthesis of L2 on L3, and 5 mm anterolisthesis of L3 on L4. There is multilevel spinal canal and foraminal narrowing. At L2-L3 disc bulging, facet arthropathy, ligamentum flavum thickening produces severe central spinal canal stenosis. There may be a disc extrusion at this level, but characterization is limited by CT. MRI may be performed. There is moderate bilateral foraminal narrowing at this level. At L3-L4, there is severe disc and facet degeneration with degenerative anterolisthesis of L3. There is severe spinal canal stenosis and severe bilateral foraminal narrowing. At L4-L5, severe disc and facet degeneration produces mild to moderate central spinal canal stenosis and severe bilateral foraminal narrowing. At L5-S1, left foramen is severely narrowed. Spinal canal and right foramen are patent. Radiologist: Lise Jimenez M.D. Study ready at 20:44 and initial results transmitted at 21:25 *This report constitutes a preliminary interpretation only. Non-acute findings felt to be unrelated to the clinical presentation may not be discussed in this report. The study will be interpreted and a final report will be generated by the local Radiologist the following shift. To reach the [facility] radiology department call [phone]. If a discrepancy is found between the preliminary and final interpretations of this study, please notify us via our Client Portal at [email or web address], under QA Exams. You can also fax this report with a description of the discrepancy, or include the final report, to our daytime fax number [phone]. If faxing, please indicate the severity of discrepancy using one of the following categories: [ ] 1 - Agree/Informational [ ] 2 - Unlikely to Affect Management [ ] 3 - Possible Eventual Change of Management [ ] 4 - Probable Immediate Change of Management For all other patient related information, please fax us at [phone]. [id number] Code Status & VTE Plan Code Status Full code VTE Prophylaxis Plan VTE Prophylaxis will be ordered: Yes
[2022-05-11] MEDS ORDERED: ALBUT/IPRATROP 3MG/0.5MG NEB 3 ML VIAL NEB PRN (00:06)
[2022-05-11 00:26] LABS: Appearance Urine Clear (Clear); Bacteria Urine Automated 4+ (Negative); Bilirubin Urine Negative (Negative); Blood Urine Negative (Negative); Cast Urine Automated 0 /lpf (0-5); Color Urine Yellow; Glucose Urine UA 2+ (Negative); Ketones Urine Negative (Negative); Leukocyte Esterase Urine 1+ (Negative); Nitrite Urine Positive (Negative); Protein Urine Negative (Negative); RBC Urine Automated 0-4 /hpf (0-4); Specific Gravity Urine 1.009 (1.000-1.030); Urobilinogen Urine Negative (Negative); pH Urine 5.5 (4.5-7.5)
[2022-05-11] MEDS ORDERED: ONDANSETRON INJ 2 MG/ML 2 ML VIAL IV PRN (01:18)
[2022-05-11] MEDS ORDERED: IPRATROPIUM BROMIDE NASAL SPRAY 0.06% 15ML NAE PRN (01:45)
[2022-05-11] MEDS: LORazepam 0.5 MG TAB PO PRN (01:57)
[2022-05-11] MEDS: PANTOprazole 40 MG TAB PO SCH ×3 (01:57→21:00)
--- NOTE | 2022-05-11 03:26 | Billing Data ---
Date of Service May 11, 2022 Coding Level of Care Code 22095 Initial Inpt Care Lvl 3
[2022-05-11 05:48] LABS: Basophils # (auto) 0.03 K/uL (0-0.2); Basophils % (auto) 0.3 %; Eosinophils # (auto) 0.12 K/uL (0-0.50); Eosinophils % (auto) 1.1 %; Hematocrit (blood only) 34.1 % (34.1-44.9); Hemoglobin 11.8 g/dl (12.0-16.0); Immature Granulocytes # (auto) 0.03 K/uL (0.00-0.02); Immature Granulocytes % (auto) 0.3 %; Lymphocytes # (auto) 1.14 K/uL (1.2-3.4); Lymphocytes % (auto) 10.1 %; Mean Corpuscular Hemoglobin 32.7 pg (25.0-34.0); Mean Corpuscular Hgb Conc 34.6 g/dL (32.0-36.0); Mean Corpuscular Volume 94.5 fL (80.0-100.0); Mean Platelet Volume 9.4 fL (9.4-12.3); Monocytes # (auto) 0.42 K/uL (0.24-0.82); Monocytes % (auto) 3.7 %; Neutrophils # (auto) 9.58 K/uL (1.4-6.5); Neutrophils % (auto) 84.5 %; Platelet Count 149 K/uL (130-400); RDW Coefficient of Variation 14.6 % (11.5-14.5); RDW Standard Deviation 48.3 fL (36.4-46.3); Red Blood Count 3.61 M/uL (3.93-5.22); White Blood Count 11.32 K/ul (4.8-10.8)
[2022-05-11 06:08] LABS: INR 4.2 (0.9-1.1); Partial Thromboplastin Ratio 1.6; Partial Thromboplastin Time 44.7 Seconds (21.0-31.0); Prothrombin Time 41.6 Seconds (9.0-12.0)
[2022-05-11 06:16] LABS: Albumin Globulin Ratio 1.5 (0.9-2); Albumin Level 3.4 gm/dl (3.4-5.0); BUN Creatinine Ratio 21.5 (10-20); Bilirubin,Total 0.9 mg/dl (0.2-1.0); Calcium 8.3 mg/dl (8.5-10.1); Creatinine Clr Calc Pharmacy 23.7 ml/min; Est GFR (African American) 25.7 ml/min; Est GFR (Non-African American) 22.2 ml/min; Globulin 2.3 gm/dl (2.5-4.0); Magnesium 1.8 mg/dl (1.7-2.4); Total Protein 5.7 gm/dl (6.0-8.3)
[2022-05-11] MEDS: DICLOFENAC SOD 1% GEL 100 GM TUBE EXT SCH ×4 (08:10→21:52)
[2022-05-11] MEDS: CEFEPIME 1,000 MG in SYRINGE 0 ML IV SCH ×2 (08:11→21:52)
[2022-05-11] MEDS: ATORVASTATIN 10 MG TAB PO SCH (08:12)
[2022-05-11] MEDS: FUROSEMIDE 40 MG TAB PO SCH ×2 (08:12→09:00)
[2022-05-11] MEDS: CHOLECALCIFEROL 1,000 UNITS 25 MCG TAB PO SCH (08:13)
[2022-05-11] MEDS: CALCITRIOL 0.25 MCG CAPSULE PO SCH (08:13)
[2022-05-11] MEDS: VITAMIN B COMPLEX TAB PO SCH (08:14)
[2022-05-11] MEDS: GABAPENTIN 100 MG CAP PO SCH ×3 (08:14→21:00)
[2022-05-11] MEDS: METOPROLOL SUCC 50MG EXT REL TAB PO SCH (08:15)
[2022-05-11] MEDS: SPIRONOLACTONE 25 MG TAB PO SCH (08:16)
[2022-05-11] MEDS: LANTUS PER UNIT CHARGE SQ SCH (08:16)
--- NOTE | 2022-05-11 08:54 | CT Scan Report ---
CT SCAN OF THE LUMBAR SPINE WITHOUT IV CONTRAST CLINICAL HISTORY: Acute on chronic low back pain. COMPARISON STUDY: Radiographs of the lumbar spine dated 10/16/2021. CT of the lumbar spine dated 2014. Abdominal CT dated 01/22/2021. TECHNIQUE: CT scan of the lumbar spine is performed from the lower thoracic spine to the sacrum. Imag es reviewed in the axial, sagittal, and coronal planes. IV contrast was not administered for this exa mination. A dose lowering technique was utilized adhering to the principles of ALARA. FINDINGS: The skeletal structures are osteopenic. There is no evidence of acute fracture or malalignm ent involving the lumbar spine. Vertebral body height is maintained. There is minimal anterolisthesis at L2-L3 and L3-L4. Alignment is otherwise preserved. There is straightening of the lumbar lordosis. Large anterior and lateral marginal osteophytes are seen throughout. There is no evidence of spondyl olysis. No lytic or blastic lesion is seen. Advanced facet arthropathy is noted in the mid to lower l umbar region. There is severe disc space narrowing with endplate sclerosis at L3-L4 and L4-L5. Mild d isc space narrowing is seen at the remaining lumbar levels. There are posterior disc osteophyte compl exes at all lumbar levels. This contributes to multilevel acquired compromise of the central canal. T his is moderate to severe at L3-L4 and at least moderate at L4-L5. A peripherally calcified synovial cyst is suggested posteriorly on the right at L3-L4. This effaces the posterior right aspect of the t hecal sac. There are lateral disc extrusions at L3-L4, right greater than left. These likely impinge on the exiting bilateral L3 nerve roots. A large right lateral disc extrusion is seen at L4-L5 and li héctor impinges on the exiting right L4 nerve root. The visualized sacrum and bony pelvis appear intact . There is fatty atrophy of the paraspinous musculature. There is advanced atherosclerotic calcificat ion of the normal caliber abdominal aorta. Cholecystectomy clips are noted. Simple and complex bilate ral renal cysts measure up to 3 cm. Small nonobstructing bilateral renal calculi measure up to 3 mm. No retroperitoneal lymphadenopathy is seen. The partially imaged uterus contains numerous calcified f ibroids. There is advanced diverticulosis of the visualized sigmoid colon. Pneumobilia is noted. Ther e is airspace consolidation at the left lung base. The heart is enlarged and pacemaker leads are in p lace. There is a tiny hiatal hernia. Duodenal diverticula are noted. IMPRESSION: 1. Airspace consolidation at the left lung base is typical for pneumonia/aspiration pneumonitis. Clin ical correlation will be required. Radiographic follow-up is recommended. 2. No acute bony abnormality is seen involving the lumbar spine. 3. Osteopenia with advanced lumbosacral spondylosis as above. 4. Bilateral nephrolithiasis. 5. Additional findings as above. ACT 112: Negative or not required by law. Dictated: 05/11/2022 7:57 AM Transcribed: 05/11/2022 8:39 AM Meagan [id number] [email or web address]_Inez Electronically signed by: Carlyle Lovelace M.D. 05/11/2022 8:52 AM
[2022-05-11] MEDS: FOLIC ACID 1 MG TAB PO SCH (08:59)
--- NOTE | 2022-05-11 09:30 | CT Scan Report ---
CT OF THE HEAD WITHOUT CONTRAST CLINICAL HISTORY: Lower extremity weakness. COMPARISON STUDY: Head CT September 26, 2013. CT DOSE: 1794.41 mGy.cm TECHNIQUE: Helical axial images of the head were obtained without IV contrast. Automated exposure con trol was utilized for the study. A dose lowering technique was utilized adhering to the principles o f ALARA. FINDINGS: No acute intracranial hemorrhage, midline shift or mass effect is present. White matter hyp odensities favor small vessel disease. The ventricular system is unremarkable. The basal cisterns are patent. No extra-axial collections are present. There are no findings to suggest acute dural sinus t hrombosis or acute territorial infarct. No significant calvarial abnormalities are present. There is mild sinus mucosal thickening. IMPRESSION: No acute intracranial findings. ACT 112: Negative or not required by law. Electronically signed by: Fritz Evans M.D. 05/11/2022 9:28 AM
--- NOTE | 2022-05-11 10:11 | XRay Report ---
SINGLE VIEW CHEST CLINICAL HISTORY: Generalized weakness FINDINGS: An AP, portable, upright chest radiograph is compared to study dated 04/15/2021. A 3-lead ca rdiac AICD is unchanged in position. The heart is enlarged noting atherosclerotic calcification of th e thoracic aorta. The pulmonary vasculature is noncongested. A calcified granuloma is seen at the rig ht apex. Chronic interstitial thickening similar to previous. There is left basilar consolidation. No large pleural effusion or pneumothorax is seen. The skeletal structures are osteopenic. There is chr onic posttraumatic deformity of the right humerus. Arthritic change is seen in the shoulders. IMPRESSION: 1. There is left basilar consolidation. Correlate clinically for evidence of pneumonia/aspiration pne umonitis. Radiographic follow-up to resolution is recommend. 2. Cardiomegaly and AICD without radiographic evidence of congestive failure. ACT 112: Negative or not required by law. Electronically signed by: Carlyle Lovelace M.D. 05/11/2022 10:09 AM
[2022-05-11] MEDS: AZITHROMYCIN 500 MG in DEXTROSE 5% 250 ML IV SCH (13:11)
--- NOTE | 2022-05-11 15:34 | Communication Note ---
Date of Service: May 11, 2022 Please see today's history and physical exam for full assessment and plan, except as otherwise detailed below: 87-year-old patient with history of atrial fibrillation on warfarin therapy, CKD stage IV, DM2, GERD, nonischemic cardiomyopathy with biventricular ICD, hypertension admitted for ambulatory dysfunction and weakness in the setting of recent influenza A diagnosis on 05/06 and community-acquired pneumonia left lower lobe consolidation on admission CXR. Presented with some complaints of shortness of breath, with chest x-ray showing left basilar consolidation pneumonia/aspiration pneumonitis. Patient was started on Cefepime/azithromycin, will continue for community-acquired pneumonia. Patient's WBC count is improved from 16->11 after 24 hours of antibiotics. Patient already received 4 days worth of reduced dose Tamiflu prior to admission, will not continue here. Goal SPO2 greater than 92%, has been on 2LNC off and on throughout the day but without hypoxia. INR supratherapeutic to 3.9>4.2, continue to hold warfarin until within therapeutic range with daily INR. PT and OT to evaluate while admitted to evaluate for possible placement needs. MiraLAX added daily for constipation. Patient complaining of mild low back pain, with CT L-spine showing no acute bony abnormalities. Lidocaine patch to low back, Tylenol as needed for pain.
[2022-05-11] MEDS: LIDOCAINE 5% 1 PATCH TD SCH (20:59)
[2022-05-11] MEDS: MONTELUKAST SODIUM 10 MG TABLET PO SCH (21:00)
[2022-05-11] MEDS: POLYETHYLENE (MIRALAX) 17 GM PACK PO SCH (21:00)
[2022-05-11] MEDS: ACETAMINOPHEN 325 MG TAB PO PRN (21:07)
[2022-05-11] MEDS ORDERED: DEXTROSE 50% 50 ML SYRINGE IV PRN (22:26)
[2022-05-11] MEDS ORDERED: GLUCAGON FOR INJ 1 MG VIAL SQ PRN (22:26)
[2022-05-11] MEDS ORDERED: GLUCOSE 40% GEL 15 GM TUBE PO PRN (22:26)
[2022-05-11] MEDS ORDERED: CARBOHYDRATES FOR HYPOGLYCEMIA PO PRN (22:26)
[2022-05-11] MEDS ORDERED: GLUCOSE 10 TAB/TUBE PO PRN (22:26)
--- NOTE | 2022-05-12 07:10 | Hospitalist Progress Note ---
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 Can continue tramadol as needed for pain not alleviated with Tylenol, as this is what patient was on outside of the hospital for this patient she had a prescription back in October and is only used it for severe pain at home). Will get ortho spine involved tomorrow given that patient is having subjective worse weakness on the right lower extremity and has findings of moderate to severe central canal stenosis on lumbar CT, though her exam seems similar to PT notes at the beginning of April. PT and OT ordered, appreciate recommendations. Recommending rehab on discharge at this time. (2) Pneumonia: Plan: Left lower lobe pneumonia noted on CT. Likely secondary to decreased immune state secondary to influenza. Continue cefepime 2 g IV every 12 hours, azithromycin 500 mg p.o. daily. Await blood cultures. Not requiring supplemental oxygen at this time. (3) Influenza A: Plan: Completed her fourth day of modified Tamiflu 45 mg daily dose for 4 days on 05/10. Continue as needed nebulizers, benzonatate for cough. (4) Chronic kidney disease, stage IV (severe): Plan: Creatinine 2.36 on 05/12, with range 1.90-2.73. Continue to follow laboratories serially. Continue calcitriol, cholecalciferol. (5) GERD (gastroesophageal reflux disease): Plan: Continue pantoprazole 40 mg p.o. twice daily (6) Rheumatoid arthritis: Plan: On methotrexate 5 mg weekly as outpatient. Continue folic acid, diclofenac sodium topically as needed. (7) DMII (diabetes mellitus, type 2): Plan: Continue usual dosing of glargine 25 units subcu every morning. Placed on Accu-Cheks before meals and at bedtime with NovoLog SSI. (8) Supratherapeutic INR: Plan: Atrial fibrillation/nonischemic cardiomyopathy/biventricular ICD/hypertension- INR 3.9 upon admissionup to 4.7 today, continue to hold warfarin. Daily INR. Continue metoprolol succinate, spironolactone. Holding furosemide and lieu of low-sodium diet. (9) Obstructive sleep apnea of adult: Plan: History of, does not use CPAP. (10) Non-ischemic cardiomyopathy: Plan: History of nonischemic cardiomyopathy, heart failure with improved ejection fraction (most recent echo 55 to 60% EF). Status post ICD/biventricular pacemaker in 2016. (11) Biventricular ICD (implantable cardioverter-defibrillator) in place: Plan: See above (12) Degenerative lumbar spinal stenosis: Plan: See #1. (13) Anxiety and depression: Plan: Continue lorazepam. (14) Atrial fibrillation: Plan: History of, had electrocardioversion in 2016, heart rate not irregular here. (15) Chronic anticoagulation: Plan: Warfarin held as above. (16) Dyslipidemia: Plan: Continue atorvastatin. (17) Hypertension: Plan: Continue spironolactone, metoprolol succinate. (18) Diabetic neuropathy: Plan: Continue gabapentin. (19) Bacteriuria: Plan: Noted from ER urine collection, GNR >100k CFU. However, patient does not have any urinary symptoms. Current cefepime before pneumonia should cover this regardless. Plan Full code Heart healthy, low-sodium, diabetic diet INR supratherapeutic holding warfarin Telemetry for cardiac monitoring Admission and Anticipated Discharge Date Admission Date: May 11, 2022 Subjective No acute events overnight. Saturating to 95% on 2LNC this morning, and on room air this afternoon. Denies any trouble breathing at this time. Denies any urinary symptoms at this time. Complains of back pain for the last three weeks, no falls or injuries prior to the pain. Does endorse some pain and weakness in her bilateral lower extremities, this is since the end of March for which she was going to physical therapy, she reported around that time that the pain started after doing some exercises that she had not done in a while. She does not endorse any tingling in her bilateral lower extremities. She denies any bowel or bladder incontinence that is new. Review of Systems Constitutional: no fever and no chills Respiratory: no cough and no dyspnea Cardiovascular: no chest pain and no palpitations Gastrointestinal: no abdominal pain, no nausea and no vomiting Physical Exam Constitutional: WD/WN, vitals as above Respiratory: normal respiratory effort, lungs clear to auscultation Cardiovascular: RRR, no murmur, no edema Gastrointestinal (Abdomen): normal bowel sounds, soft, nontender, no hepatosplenomegaly Skin: no rashes, warm and dry Neurologic: 3/5 strength bilateral lower extremities, 5/5 strength bilateral upper extremities, sensation intact bilateral upper and lower extremities Psychiatric: A+Ox3, euthymic affect Results & Data Results & Data ([facility]) Vital Signs (Past 12 Hours) Vital Signs Temp Pulse Resp BP Pulse Ox Pulse Ox O2 Del Method 05/12/22 03:42 36.5 C 83 20 124/77 95 Nasal Cannula 05/12/22 01:18 94 05/12/22 00:00 Nasal Cannula 05/11/22 23:55 36.6 C 80 16 111/69 94 Nasal Cannula O2 Del Method O2 Flow Rate O2 Flow Rate 05/12/22 03:42 2 05/12/22 01:18 Nasal Cannula 2 05/12/22 00:00 2 05/11/22 23:55 2 PG Care Time/CCT Total # of Minutes Spent Total Time Spent with Patient: Total time spent is greater than 50% in coordination of care (as documented) at patient's floor/unit and/or counseling patient: Coding Level of Care Code 82934 Subseq Hosp Care Lvl 3 Diagnoses Ambulatory dysfunction R26.2 Pneumonia J18.9 Influenza A J10.1 Chronic kidney disease, stage IV (severe) N18.4 GERD (gastroesophageal reflux disease) K21.9 Rheumatoid arthritis M06.9 DMII (diabetes mellitus, type 2) E11.9 Supratherapeutic INR R79.1 Obstructive sleep apnea of adult G47.33 Non-ischemic cardiomyopathy I42.8 Biventricular ICD (implantable cardioverter-defibrillator) in place Z95.810 Degenerative lumbar spinal stenosis M48.061 Anxiety and depression F41.9; F32.A Atrial fibrillation I48.91 Chronic anticoagulation Z79.01 Dyslipidemia E78.5 Hypertension I10 Diabetic neuropathy E11.40 Bacteriuria R82.71
[2022-05-12 07:33] LABS: Basophils # (auto) 0.02 K/uL (0-0.2); Basophils % (auto) 0.2 %; Eosinophils # (auto) 0.25 K/uL (0-0.50); Eosinophils % (auto) 2.9 %; Hematocrit (blood only) 37.4 % (34.1-44.9); Hemoglobin 12.6 g/dl (12.0-16.0); Immature Granulocytes # (auto) 0.03 K/uL (0.00-0.02); Immature Granulocytes % (auto) 0.3 %; Lymphocytes # (auto) 1.06 K/uL (1.2-3.4); Lymphocytes % (auto) 12.3 %; Mean Corpuscular Hemoglobin 32.4 pg (25.0-34.0); Mean Corpuscular Hgb Conc 33.7 g/dL (32.0-36.0); Mean Corpuscular Volume 96.1 fL (80.0-100.0); Mean Platelet Volume 9.2 fL (9.4-12.3); Monocytes # (auto) 0.19 K/uL (0.24-0.82); Monocytes % (auto) 2.2 %; Neutrophils # (auto) 7.09 K/uL (1.4-6.5); Neutrophils % (auto) 82.1 %; Platelet Count 150 K/uL (130-400); RDW Coefficient of Variation 14.6 % (11.5-14.5); RDW Standard Deviation 49.5 fL (36.4-46.3); Red Blood Count 3.89 M/uL (3.93-5.22); White Blood Count 8.64 K/ul (4.8-10.8)
[2022-05-12 07:55] LABS: Albumin Globulin Ratio 1.4 (0.9-2); Albumin Level 3.6 gm/dl (3.4-5.0); BUN Creatinine Ratio 21.2 (10-20); Calcium 8.9 mg/dl (8.5-10.1); Creatinine Clr Calc Pharmacy 20.1 ml/min; Est GFR (African American) 21.1 ml/min; Est GFR (Non-African American) 18.2 ml/min; Globulin 2.5 gm/dl (2.5-4.0); Magnesium 1.9 mg/dl (1.7-2.4); Total Protein 6.1 gm/dl (6.0-8.3)
[2022-05-12 07:56] LABS: INR 4.7 (0.9-1.1); Partial Thromboplastin Ratio 1.6; Partial Thromboplastin Time 44.7 Seconds (21.0-31.0); Prothrombin Time 46.2 Seconds (9.0-12.0)
[2022-05-12] MEDS: LANTUS PER UNIT CHARGE SQ SCH (08:09)
[2022-05-12] MEDS: INSULIN ASPART PER UNIT SC SCH ×4 (08:09→20:20)
[2022-05-12] MEDS: GABAPENTIN 100 MG CAP PO SCH ×3 (08:14→20:20)
[2022-05-12] MEDS: PANTOprazole 40 MG TAB PO SCH ×2 (08:14→20:19)
[2022-05-12] MEDS: CALCITRIOL 0.25 MCG CAPSULE PO SCH (08:14)
[2022-05-12] MEDS: SPIRONOLACTONE 25 MG TAB PO SCH (08:14)
[2022-05-12] MEDS: VITAMIN B COMPLEX TAB PO SCH (08:14)
[2022-05-12] MEDS: ATORVASTATIN 10 MG TAB PO SCH (08:15)
[2022-05-12] MEDS: FOLIC ACID 1 MG TAB PO SCH (08:15)
[2022-05-12] MEDS: CHOLECALCIFEROL 1,000 UNITS 25 MCG TAB PO SCH (08:15)
[2022-05-12] MEDS: DICLOFENAC SOD 1% GEL 100 GM TUBE EXT SCH ×6 (08:15→20:27)
[2022-05-12] MEDS: LIDOCAINE 5% 1 PATCH TD SCH (08:15)
[2022-05-12] MEDS: CEFEPIME 1,000 MG in SYRINGE 0 ML IV SCH ×2 (08:25→20:27)
[2022-05-12] MEDS: METOPROLOL SUCC 50MG EXT REL TAB PO SCH (08:25)
[2022-05-12] MEDS: POLYETHYLENE (MIRALAX) 17 GM PACK PO SCH ×2 (08:25→20:21)
[2022-05-12] MEDS: AZITHROMYCIN 500 MG in DEXTROSE 5% 250 ML IV SCH (12:10)
[2022-05-12] MEDS ORDERED: traMADol HCL 50 MG TABLET PO STA (14:35)
[2022-05-12] MEDS ORDERED: SODIUM CHLORIDE 0.65% NA SOLN 45 ML (OCEAN) ONE (14:54)
[2022-05-12] MEDS: ACETAMINOPHEN 325 MG TAB PO PRN (20:18)
[2022-05-12] MEDS: MONTELUKAST SODIUM 10 MG TABLET PO SCH (20:19)
[2022-05-12] MEDS: LORazepam 0.5 MG TAB PO PRN (20:19)
[2022-05-13 06:25] LABS: Basophils # (auto) 0.02 K/uL (0-0.2); Basophils % (auto) 0.3 %; Eosinophils # (auto) 0.42 K/uL (0-0.50); Eosinophils % (auto) 6.5 %; Hematocrit (blood only) 35.8 % (34.1-44.9); Hemoglobin 12.3 g/dl (12.0-16.0); Immature Granulocytes # (auto) 0.03 K/uL (0.00-0.02); Immature Granulocytes % (auto) 0.5 %; Lymphocytes # (auto) 1.11 K/uL (1.2-3.4); Lymphocytes % (auto) 17.2 %; Mean Corpuscular Hemoglobin 32.5 pg (25.0-34.0); Mean Corpuscular Hgb Conc 34.4 g/dL (32.0-36.0); Mean Corpuscular Volume 94.7 fL (80.0-100.0); Mean Platelet Volume 9.7 fL (9.4-12.3); Monocytes # (auto) 0.17 K/uL (0.24-0.82); Monocytes % (auto) 2.6 %; Neutrophils % (auto) 72.9 %; Platelet Count 198 K/uL (130-400); RDW Coefficient of Variation 14.2 % (11.5-14.5); RDW Standard Deviation 47.5 fL (36.4-46.3); Red Blood Count 3.78 M/uL (3.93-5.22); White Blood Count 6.45 K/ul (4.8-10.8)
[2022-05-13] MEDS: ACETAMINOPHEN 325 MG TAB PO PRN (06:28)
[2022-05-13 07:17] LABS: INR 2.8 (0.9-1.1); Partial Thromboplastin Ratio 1.4; Partial Thromboplastin Time 37.7 Seconds (21.0-31.0); Prothrombin Time 28.5 Seconds (9.0-12.0)
[2022-05-13 07:34] LABS: Albumin Globulin Ratio 1.4 (0.9-2); Albumin Level 3.6 gm/dl (3.4-5.0); BUN Creatinine Ratio 24.9 (10-20); Bilirubin,Total 1.7 mg/dl (0.2-1.0); Calcium 9.3 mg/dl (8.5-10.1); Creatinine Clr Calc Pharmacy 23.6 ml/min; Est GFR (African American) 25.6 ml/min; Est GFR (Non-African American) 22.1 ml/min; Globulin 2.6 gm/dl (2.5-4.0); Potassium 4.3 mmol/L (3.5-5.1); Total Protein 6.2 gm/dl (6.0-8.3)
--- NOTE | 2022-05-13 07:57 | Hospitalist Progress Note ---
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 Can continue tramadol as needed for pain not alleviated with Tylenol, as this is what patient was on outside of the hospital for this patient she had a prescription back in October and is only used it for severe pain at home). Lumbar spine CT showed severe multilevel spinal stenosis. Ortho Spine consulted and appreciate recommendations; given extensive multilevel disc disease, comorbidities, opt for conservative measures (pain management, PT, OT). Pain Management consulted. PT and OT ordered, appreciate recommendations. Recommending rehab on discharge at this time. (2) Pneumonia: Plan: Left lower lobe pneumonia noted on CT. Likely secondary to decreased immune state secondary to influenza. Was started on cefepime/azithro, with improvement in WBC count, symptomatology, negative blood cultures. Transition to Augmentin/azithromycin (total of 7 days of Abx for CAP). Not requiring supplemental oxygen at this time. (3) Influenza A: Plan: Completed her fourth day of modified Tamiflu 45 mg daily dose for 4 days on 05/10. Continue as needed nebulizers, benzonatate for cough. (4) Chronic kidney disease, stage IV (severe): Plan: Creatinine 2.0 on 05/13, with range 1.90-2.73. Continue calcitriol, cholecalciferol. Renally dose medications. (5) GERD (gastroesophageal reflux disease): Plan: Continue pantoprazole 40 mg p.o. twice daily. (6) Rheumatoid arthritis: Plan: On methotrexate 5 mg weekly as outpatient. Continue folic acid, diclofenac sodium topically as needed. (7) DMII (diabetes mellitus, type 2): Plan: Continue usual dosing of glargine 25 units subcu every morning. Placed on Accu-Cheks before meals and at bedtime with NovoLog SSI. (8) Supratherapeutic INR: Plan: Atrial fibrillation/nonischemic cardiomyopathy/biventricular ICD/hypertension- INR 3.9 upon admissiondown to 2.8 today, continue to hold warfarin with INR tomorrow and anticipate resume tomorrow. Continue metoprolol succinate, spironolactone. Continue home Lasix dosing. (9) Obstructive sleep apnea of adult: Plan: History of, does not use CPAP. (10) Non-ischemic cardiomyopathy: Plan: History of nonischemic cardiomyopathy, heart failure with improved ejection fraction (most recent echo 55 to 60% EF). Status post ICD/biventricular pacemaker in 2016. (11) Biventricular ICD (implantable cardioverter-defibrillator) in place: Plan: See above (12) Degenerative lumbar spinal stenosis: Plan: See #1. (13) Anxiety and depression: Plan: Continue lorazepam. (14) Atrial fibrillation: Plan: History of, had electrocardioversion in 2016, heart rate not irregular here. (15) Chronic anticoagulation: Plan: Warfarin held as above. (16) Dyslipidemia: Plan: Continue atorvastatin. (17) Hypertension: Plan: Continue spironolactone, metoprolol succinate. (18) Diabetic neuropathy: Plan: Continue gabapentin. (19) Bacteriuria: Plan: Noted from ER urine collection, GNR >100k CFU. Has since resulted pansensitive Klebsiella. However, patient does not have any urinary symptoms. Current Abx for pneumonia should cover this regardless. Plan Full code Heart healthy, low-sodium, diabetic diet INR supratherapeutic holding warfarin Telemetry for cardiac monitoring Admission and Anticipated Discharge Date Admission Date: May 11, 2022 Subjective Patient without any acute events overnight. Does continue to complain of low back pain, relieved for the most part with as needed medications. No worsening of lower extremity weakness. Still has an annoying cough however improvement in her breathing. No urinary symptoms. Review of Systems Constitutional: no fever and no chills Respiratory: + cough; no dyspnea Cardiovascular: no chest pain and no palpitations Gastrointestinal: no abdominal pain, no nausea and no vomiting Physical Exam Constitutional: WD/WN, vitals as above Respiratory: normal respiratory effort, lungs clear to auscultation Normal respiratory effort, upper airway sounds noted and intermittent cough, otherwise clear to auscultation bilaterally Cardiovascular: RRR, no murmur, no edema Gastrointestinal (Abdomen): normal bowel sounds, soft, nontender, no hepatosplenomegaly Skin: no rashes, warm and dry Neurologic: 3/5 strength bilateral lower extremities, 5/5 strength bilateral u pper extremities, sensation intact bilateral upper and lower extremities Psychiatric: A+Ox3, euthymic affect Results & Data Results & Data ([facility]) Vital Signs (Past 12 Hours) Vital Signs Temp Pulse Pulse Resp BP Pulse Ox Pulse Ox 11/29/22 22:22 80 05/13/22 03:07 37.2 C 86 16 130/78 96 05/13/22 01:00 92 05/12/22 23:18 36.6 C 83 18 132/72 91 05/12/22 20:15 O2 Del Method O2 Del Method 05/12/22 22:22 05/13/22 03:07 Room Air 05/13/22 01:00 Room Air 05/12/22 23:18 Room Air 05/12/22 20:15 Room Air PG Care Time/CCT Total # of Minutes Spent Total Time Spent with Patient: Total time spent is greater than 50% in coordination of care (as documented) at patient's floor/unit and/or counseling patient: Coding Level of Care Code 77354 Subseq Hosp Care Lvl 3 Diagnoses Ambulatory dysfunction R26.2 Pneumonia J18.9 Influenza A J10.1 Chronic kidney disease, stage IV (severe) N18.4 GERD (gastroesophageal reflux disease) K21.9 Rheumatoid arthritis M06.9 DMII (diabetes mellitus, type 2) E11.9 Supratherapeutic INR R79.1 Obstructive sleep apnea of adult G47.33 Non-ischemic cardiomyopathy I42.8 Biventricular ICD (implantable cardioverter-defibrillator) in place Z95.810 Degenerative lumbar spinal stenosis M48.061 Anxiety and depression F41.9; F32.A Atrial fibrillation I48.91 Chronic anticoagulation Z79.01 Dyslipidemia E78.5 Hypertension I10 Diabetic neuropathy E11.40 Bacteriuria R82.71
[2022-05-13] MEDS: LANTUS PER UNIT CHARGE SQ SCH (08:14)
[2022-05-13] MEDS: INSULIN ASPART PER UNIT SC SCH ×4 (08:15→20:19)
[2022-05-13] MEDS: CEFEPIME 1,000 MG in SYRINGE 0 ML IV SCH (08:29)
[2022-05-13] MEDS: DICLOFENAC SOD 1% GEL 100 GM TUBE EXT SCH ×5 (08:29→20:31)
[2022-05-13] MEDS: GABAPENTIN 100 MG CAP PO SCH ×3 (08:30→20:30)
[2022-05-13] MEDS: PANTOprazole 40 MG TAB PO SCH ×2 (08:30→20:31)
[2022-05-13] MEDS: FOLIC ACID 1 MG TAB PO SCH (08:31)
[2022-05-13] MEDS: FUROSEMIDE 40 MG TAB PO SCH (08:31)
[2022-05-13] MEDS: POLYETHYLENE (MIRALAX) 17 GM PACK PO SCH ×2 (08:31→20:32)
[2022-05-13] MEDS: METOPROLOL SUCC 50MG EXT REL TAB PO SCH (08:32)
[2022-05-13] MEDS: VITAMIN B COMPLEX TAB PO SCH (08:32)
[2022-05-13] MEDS: CALCITRIOL 0.25 MCG CAPSULE PO SCH (08:32)
[2022-05-13] MEDS: CHOLECALCIFEROL 1,000 UNITS 25 MCG TAB PO SCH (08:33)
[2022-05-13] MEDS: ATORVASTATIN 10 MG TAB PO SCH (08:33)
[2022-05-13] MEDS: SPIRONOLACTONE 25 MG TAB PO SCH (08:33)
[2022-05-13] MEDS: AZITHROMYCIN 250 MG TAB PO SCH (08:33)
[2022-05-13] MEDS: LIDOCAINE 5% 1 PATCH TD SCH ×2 (08:34→09:57)
[2022-05-13] MEDS ORDERED: AZITHROMYCIN 250 MG TAB PO SCH (09:00)
[2022-05-13] MEDS ORDERED: COUGH DROP (SUGAR FREE) LOZ 24 LOZ/1 BOX BUCCAL ONE (10:01)
--- NOTE | 2022-05-13 11:40 | Orthopedic Consultation ---
Date of Consultation May 13, 2022 Assessment & Plan (1) Degenerative lumbar spinal stenosis: Assessment lumbar spinal stenosis with radiculopathy. Plan I did have discussion with this patient and her son reviewing her present clinical presentation and most recent CAT scan. Undoubtedly she is experiencing radiculopathy secondary to the severe multilevel spinal stenosis and obvious neural compression. Unfortunately she would be significant risk for surgical invention. She would also require a multilevel decompression possible fusion to obtain any adequate relief. Suggest she consider pain management. Unfortunately with her anticoagulation injections would be limited. Patient and her son understand my trepidation with surgery. Hopefully she will improve with rest some physical therapy and can transfer to rehab. History of Present Illness Reason for Consultation: Back and bilateral leg pain Attending Physician: Ana María Alfonso, DO History of Present Illness This is a very pleasant 87-year-old female who presents multiple issues. She is currently in the unit. She is noting significant severe pain radiating down the right leg with any activity. Transitions from bed to chair are quite debilitating. This is been recent in onset. She really recently lost her approximately 3 weeks ago. She states today she is comfortable while lying perfectly still but sitting up can reproduce symptoms. Involves primarily the right buttock posterior thigh extending down the right leg. She notes perception of weakness in the right leg. She also describes a history of bilateral peripheral neuropathy to the lower extremities. She denies any trauma or fall that may precipitated her pain. Allergies Allergy/AdvReac Type Severity Reaction Status Date / Time amiodarone AdvReac Intermediate gi distress Verified 04/30/22 09:26 aspirin AdvReac Intermediate history of Verified 04/30/22 09:26 ulcers nortriptyline AdvReac Unknown DOESN'T Verified 04/30/22 09:26 REMEMBER Home Medications Medication Instructions Recorded Confirmed Type methotrexate sodium 2.5 mg tablet 5 mg PO WK 03/30/19 05/10/22 History ipratropium bromide 21 mcg (0.03 2 sprays intranasal BID PRN 09/29/19 05/10/22 Rx %) nasal spray Congestion #30 mL meclizine 25 mg tablet 25 mg PO TID PRN dizziness #30 tabs 12/20/19 05/10/22 Rx cholecalciferol (vitamin D3) 50 2,000 unit PO QAM #90 caps 10/12/20 11/27/22 Rx mcg (2,000 unit) capsule (Vitamin D3) diclofenac sodium 1 % topical gel 2 g EXT QID #100 grams 01/28/21 05/10/22 Rx (Voltaren Arthritis Pain) buspirone 5 mg tablet 5 mg PO BID PRN anxiety #60 tabs 04/11/21 05/10/22 Rx spironolactone 50 mg tablet 50 mg PO QAM #90 tabs 05/05/21 05/10/22 Rx calcitriol 0.25 mcg capsule 0.25 mcg PO DAILY #90 caps 05/27/21 05/10/22 Rx insulin lispro 100 unit/mL See Rx Instructions subcut AC #15 06/20/21 05/10/22 Rx subcutaneous pen (Humalog KwikPen mL (U-100) Insulin) vitamin B complex 1 tab PO DAILY 07/02/21 05/10/22 History blood sugar diagnostic #100 ea 09/01/21 04/30/22 Rx pen needle, diabetic 32 gauge x #100 ea 09/01/21 04/30/22 Rx 1/4" (BD Ultra-Fine Micro Pen Needle) folic acid 1 mg tablet 2 mg PO DAILY 09/04/21 05/10/22 History atorvastatin 10 mg tablet 10 mg PO DAILY #90 tabs 09/11/21 05/10/22 Rx flash glucose scanning reader #2 ea 10/16/21 04/30/22 Rx (FreeStyle Goldie 14 Day [place]) flash glucose sensor (FreeStyle #2 ea 10/16/21 04/30/22 Rx Goldie 14 Day Sensor kit) furosemide 40 mg tablet See Rx Instructions .Route 11/18/21 05/10/22 Rx .COMPLEX #135 tabs insulin glargine U-300 conc 300 25 unit (0.0833 mL) subcut QAM 90 01/06/22 05/10/22 Rx unit/mL (1.5 mL) subcutaneous pen days #9 mL (Touxochitlo SoloStar U-300 Insulin) blood sugar diagnostic #100 ea 02/17/22 04/30/22 Rx walker #1 ea 02/17/22 04/30/22 Rx metoprolol succinate 200 mg 200 mg PO DAILY #90 tabs 02/25/22 05/10/22 Rx tablet,extended release 24 hr pantoprazole 40 mg tablet,delayed 40 mg PO BID #180 tabs 02/25/22 05/10/22 Rx release warfarin 4 mg tablet (Jantoven) See Rx Instructions PO UD 04/29/22 05/10/22 History gabapentin 100 mg capsule 100 mg PO TID #90 caps 04/30/22 05/10/22 Rx lorazepam 0.5 mg tablet 0.5 mg PO BID PRN anxiety #60 tabs 04/30/22 05/10/22 Rx miscellaneous medical supply #1 ea 05/04/22 Rx benzonatate 200 mg capsule 200 mg PO TID PRN cough #30 caps 05/06/22 05/10/22 Rx montelukast 10 mg tablet 10 mg PO HS 05/10/22 05/10/22 History Patient History Medical History (Updated 05/12/22 @ 19:35 by Ana María Alfonso, DO) Anxiety and depression Atrial fibrillation Biventricular ICD (implantable cardioverter-defibrillator) in place (2015) [employer]>GETS CHECKED BY DR. VARGAS Chronic diarrhea Chronic systolic congestive heart failure COVID-19 (~03/2021) Degenerative disc disease Degenerative lumbar spinal stenosis Diabetes mellitus, type 2 Diabetic neuropathy Dyslipidemia GERD without esophagitis History of basal cell carcinoma Hx of squamous cell carcinoma Hypertension Non-ischemic cardiomyopathy PAC (premature atrial contraction) Rheumatoid arthritis Sensorineural hearing loss (SNHL) of both ears Stage III chronic kidney disease Third degree AV block Surgical History History of anesthesia reaction CONFUSION WITH GALLBLADDER REMOVAL, AWARENESS DURING COLONOSCOPY History of cataract surgery RT/LEFT History of colonoscopy History of esophagogastroduodenoscopy (EGD) History of tooth extraction S/P cholecystectomy S/P total knee arthroplasty RT/LEFT S/P tubal ligation Family History Father Heart disease Mother Diabetes Heart disease Myocardial infarction Family history of diabetes mellitus Grandfather (Maternal) Prostate cancer Family history of diabetes mellitus Other Family history non-contributory No family history of adverse response to anesthesia Denies family history of Ovarian cancer Breast cancer Colorectal cancer Social History (Updated 04/27/22 @ 11:42 by Tori Cook, PT, CPED) Smoking Status: Never smoker Second Hand Exposure: No; Hx Alcohol Use: No Hx Substance Use: No Preferred Language: Uzbek Communication Ability: Effective Visual Impairment: No Limitations Hearing Ability: Use of Hearing Aid Insurance Producer Required: No Beliefs That Will Affect Care: None marital status: Single Current Living Situation: Alone Current Living Situation Comment: pt lives alone, has daughter and son check on her current occupational status: retired Feels Safe at Home: Yes Childhood Exposure to Second-Hand Smoke: Yes Dental Care, Regularly: Yes Physical Activity Frequency: Does not Exercise Seatbelt Use: always Sunscreen Use: Yes Assistive Devices: Walker Physical Exam Physical Exam: On exam she is in bed. She is sitting up. Her son is at the bedside. She is cooperative. She does have active strength in bilateral plantar flexion dorsiflexion left quadriceps as well as the right. Sensory is diminished but intact to pressure. Reflexes diminished. Results & Data ([facility]) Vital Signs (Past 12 Hours) Vital Signs Temp Pulse Resp BP Pulse Ox Pulse Ox O2 Del Method 05/13/22 08:00 Room Air 05/13/22 08:00 37.0 C 88 20 118/71 95 Room Air 05/13/22 03:07 37.2 C 86 16 130/78 96 Room Air 05/13/22 01:00 92 O2 Del Method 05/13/22 08:00 05/13/22 08:00 05/13/22 03:07 05/13/22 01:00 Room Air
[2022-05-13 11:56] LABS: Lyme Ab IgG w/WB Rflx Negative (Negative); Lyme Ab IgM w/WB Rflx Negative (Negative)
[2022-05-13] MEDS: BENZONATATE 100 MG CAPSULE PO PRN ×2 (13:00→20:28)
[2022-05-13] MEDS ORDERED: SOD PHOSPHATE/SOD BIPHOSPHATE ENEMA 132 ML BTL PR PRN (13:54)
[2022-05-13] MEDS: AMOXICILLIN/CLAVULANATE 500 MG TAB PO SCH (16:36)
[2022-05-13] MEDS: ACETAMINOPHEN 500 MG TAB PO SCH (17:01)
[2022-05-13] MEDS: LORazepam 0.5 MG TAB PO PRN (20:29)
[2022-05-13] MEDS: MONTELUKAST SODIUM 10 MG TABLET PO SCH (20:30)
[2022-05-13] MEDS: SENNA 8.6 MG TAB PO SCH (20:32)
[2022-05-14] MEDS: ACETAMINOPHEN 500 MG TAB PO SCH ×3 (00:15→16:49)
--- NOTE | 2022-05-14 08:06 | Hospitalist Progress Note ---
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 Can continue tramadol as needed for pain not alleviated with Tylenol, as this is what patient was on outside of the hospital for this patient she had a prescription back in October and is only used it for severe pain at home). Lumbar spine CT showed severe multilevel spinal stenosis. Ortho Spine consulted and appreciate recommendations; given extensive multilevel disc disease, comorbidities, opt for conservative measures (pain management, PT, OT). Pain Management consulted; tramadol prn ordered and will have outpatient follow up for consideration of epidural injection. Consider increasing gabapentin do sing. PT and OT ordered, appreciate recommendations. Recommending rehab on discharge at this time. (2) Pneumonia: Plan: Left lower lobe pneumonia noted on CT. Likely secondary to decreased immune state secondary to influenza. Was started on cefepime/azithro, with improvement in WBC count, symptomatology, negative blood cultures. Transition to Augmentin/azithromycin (total of 7 days of Abx for CAP). Not requiring supplemental oxygen at this time. (3) Influenza A: Plan: Completed her fourth day of modified Tamiflu 45 mg daily dose for 4 days on 05/10. Continue as needed nebulizers, benzonatate for cough. Encouraged cough medication use today with improvement in cough. (4) Chronic kidney disease, stage IV (severe): Plan: Creatinine baseline range 1.90-2.73. At baseline. Continue calcitriol, cholecalciferol. Renally dose medications. (5) GERD (gastroesophageal reflux disease): Plan: Continue pantoprazole 40 mg p.o. twice daily. (6) Rheumatoid arthritis: Plan: On methotrexate 5 mg weekly as outpatient. Continue folic acid, diclofenac sodium topically as needed. (7) DMII (diabetes mellitus, type 2): Plan: Continue usual dosing of glargine 25 units subcu every morning. Placed on Accu-Cheks before meals and at bedtime with NovoLog SSI. (8) Supratherapeutic INR: Plan: Atrial fibrillation/nonischemic cardiomyopathy/biventricular ICD/hypertension- INR 3.9 upon admissiondown to 1.7 today, resume warfarin home dosing (4 mg ///Guerra, 2 mg all other days). Continue metoprolol succinate, spironolactone. Continue home Lasix dosing. (9) Obstructive sleep apnea of adult: Plan: History of, does not use CPAP. (10) Non-ischemic cardiomyopathy: Plan: History of nonischemic cardiomyopathy, heart failure with improved ejection fraction (most recent echo 55 to 60% EF). Status post ICD/biventricular pacemaker in 2016. (11) Biventricular ICD (implantable cardioverter-defibrillator) in place: Plan: See above (12) Degenerative lumbar spinal stenosis: Plan: See #1. (13) Anxiety and depression: Plan: Continue lorazepam. (14) Atrial fibrillation: Plan: History of, had electrocardioversion in 2016, heart rate not irregular here. (15) Chronic anticoagulation: Plan: Warfarin held as above. (16) Dyslipidemia: Plan: Continue atorvastatin. (17) Hypertension: Plan: Continue spironolactone, metoprolol succinate. (18) Diabetic neuropathy: Plan: Continue gabapentin. (19) Bacteriuria: Plan: Noted from ER urine collection, GNR >100k CFU. Has since resulted pansensitive Klebsiella. However, patient does not have any urinary symptoms. Current Abx for pneumonia should cover this regardless. Plan Full code Heart healthy, low-sodium, diabetic diet Warfarin home dosing described above Telemetry for cardiac monitoring Admission and Anticipated Discharge Date Admission Date: May 11, 2022 Subjective Overnight: No acute events On room air overnight No fevers Patient complains mostly of cough and of low back pain. Lots of pain with movement, fearful of moving due to the pain. Review of Systems Constitutional: no fever and no chills Respiratory: + cough; no dyspnea Cardiovascular: no chest pain and no palpitations Gastrointestinal: no abdominal pain, no nausea and no vomiting Physical Exam Constitutional: WD/WN, vitals as above Respiratory: normal respiratory effort, lungs clear to auscultation (cough intermittent) Cardiovascular: RRR, no murmur, no edema Gastrointestinal (Abdomen): normal bowel sounds, soft, nontender, no hepatosplenomegaly Skin: no rashes, warm and dry Psychiatric: A+Ox3, euthymic affect Results & Data Results & Data ([place]) Vital Signs (Past 12 Hours) Vital Signs Temp Pulse Pulse Resp BP Pulse Ox Pulse Ox 05/14/22 07:41 36.5 C 82 20 141/80 H 91 05/13/22 22:22 80 05/14/22 03:00 36.5 C 80 15 116/72 92 05/14/22 01:00 93 05/13/22 22:56 36.6 C 82 18 111/69 92 05/13/22 20:27 O2 Del Method O2 Del Method 05/14/22 07:41 Room Air 05/13/22 22:22 05/14/22 03:00 Room Air 05/14/22 01:00 Room Air 05/13/22 22:56 Room Air 05/13/22 20:27 Room Air PG Care Time/CCT Total # of Minutes Spent Total Time Spent with Patient: Total time spent is greater than 50% in coordination of care (as documented) at patient's floor/unit and/or counseling patient: Coding Level of Care Code 22293 Subseq Hosp Care Lvl 3 Diagnoses Ambulatory dysfunction R26.2 Pneumonia J18.9 Influenza A J10.1 Chronic kidney disease, stage IV (severe) N18.4 GERD (gastroesophageal reflux disease) K21.9 Rheumatoid arthritis M06.9 DMII (diabetes mellitus, type 2) E11.9 Supratherapeutic INR R79.1 Obstructive sleep apnea of adult G47.33 Non-ischemic cardiomyopathy I42.8 Biventricular ICD (implantable cardioverter-defibrillator) in place Z95.810 Degenerative lumbar spinal stenosis M48.061 Anxiety and depression F41.9; F32.A Atrial fibrillation I48.91 Chronic anticoagulation Z79.01 Dyslipidemia E78.5 Hypertension I10 Diabetic neuropathy E11.40 Bacteriuria R82.71
[2022-05-14] MEDS: LANTUS PER UNIT CHARGE SQ SCH (08:28)
--- NOTE | 2022-05-14 08:28 | Pain Management Consultation ---
Date of Consultation May 14, 2022 Assessment & Plan (1) Degenerative lumbar spinal stenosis: (2) Ambulatory dysfunction: (3) Diabetic neuropathy: (4) Lumbar spinal stenosis: Plan 1. I have ordered Tramadol for the patient to take PRN pain. 2. Encouraged to work with physical therapy for leg strengthening and ambulatory dysfunction. 3. Could consider a lumbar epidural injection on an outpatient basis. Due to current pneumonia and on Coumadin this procedure cannot be performed during hospitalization. 4. Consider increasing Gabapentin dosage. Thank you for the consultation. Please contact with any questions or concerns. History of Present Illness Attending Physician: Ana María Alfonso, History of Present Illness Mrs. Taylor is an 87-year-old female that has been admitted to the [facility] for pneumonia, back pain, leg weakness. She notes increased pain along the lumbosacral region radiating down the legs. There is numbness and tingling from the knees to the feet. She does report significant weakness and feels like they are "paralyzed ". She has taken Tylenol once for pain. She has previously taken tramadol with some pain relief and without side effects. Patient was evaluated by Dr. Ohara to discuss possible surgical options which has been deferred. Physical therapy did come in yesterday but the patient states that she was not able to participate. No bowel/bladder incontinence, saddle anesthesia, foot drop. Case discussed with Dr. Tomasa Monet Allergies Allergy/AdvReac Type Severity Reaction Status Date / Time amiodarone AdvReac Intermediate gi distress Verified 04/30/22 09:26 aspirin AdvReac Intermediate history of Verified 04/30/22 09:26 ulcers nortriptyline AdvReac Unknown DOESN'T Verified 04/30/22 09:26 REMEMBER Home Medications Medication Instructions Recorded Confirmed Type methotrexate sodium 2.5 mg tablet 5 mg PO WK 03/30/19 05/10/22 History ipratropium bromide 21 mcg (0.03 2 sprays intranasal BID PRN 09/29/19 05/10/22 R x %) nasal spray Congestion #30 mL meclizine 25 mg tablet 25 mg PO TID PRN dizziness #30 tabs 12/20/19 05/10/22 Rx cholecalciferol (vitamin D3) 50 2,000 unit PO QAM #90 caps 03/25/20 05/10/22 Rx mcg (2,000 unit) capsule (Vitamin D3) diclofenac sodium 1 % topical gel 2 g EXT QID #100 grams 01/28/21 05/10/22 Rx (Voltaren Arthritis Pain) buspirone 5 mg tablet 5 mg PO BID PRN anxiety #60 tabs 04/11/21 05/10/22 Rx spironolactone 50 mg tablet 50 mg PO QAM #90 tabs 05/05/21 05/10/22 Rx calcitriol 0.25 mcg capsule 0.25 mcg PO DAILY #90 caps 05/27/21 05/10/22 Rx insulin lispro 100 unit/mL See Rx Instructions subcut AC #15 06/20/21 05/10/22 Rx subcutaneous pen (Humalog KwikPen mL (U-100) Insulin) vitamin B complex 1 tab PO DAILY 07/02/21 05/10/22 History blood sugar diagnostic #100 ea 09/01/21 04/30/22 Rx pen needle, diabetic 32 gauge x #100 ea 09/01/21 04/30/22 Rx 1/4" (BD Ultra-Fine Micro Pen Needle) folic acid 1 mg tablet 2 mg PO DAILY 09/04/21 05/10/22 History atorvastatin 10 mg tablet 10 mg PO DAILY #90 tabs 09/11/21 05/10/22 Rx flash glucose scanning reader #2 ea 10/16/21 04/30/22 Rx (FreeStyle Goldie 14 Day [place]) flash glucose sensor (FreeStyle #2 ea 10/16/21 04/30/22 Rx Goldie 14 Day Sensor kit) furosemide 40 mg tablet See Rx Instructions .Route 11/18/21 05/10/22 Rx .COMPLEX #135 tabs insulin glargine U-300 conc 300 25 unit (0.0833 mL) subcut QAM 90 01/06/22 05/10/22 Rx unit/mL (1.5 mL) subcutaneous pen days #9 mL (Touxochitlo SoloStar U-300 Insulin) blood sugar diagnostic #100 ea 02/17/22 04/30/22 Rx walker #1 ea 02/17/22 04/30/22 Rx metoprolol succinate 200 mg 200 mg PO DAILY #90 tabs 02/25/22 05/10/22 Rx tablet,extended release 24 hr pantoprazole 40 mg tablet,delayed 40 mg PO BID #180 tabs 02/25/22 05/10/22 Rx release warfarin 4 mg tablet (Jantoven) See Rx Instructions PO UD 04/29/22 05/10/22 History gabapentin 100 mg capsule 100 mg PO TID #90 caps 04/30/22 05/10/22 Rx lorazepam 0.5 mg tablet 0.5 mg PO BID PRN anxiety #60 tabs 04/30/22 05/10/22 Rx miscellaneous medical supply #1 ea 05/04/22 Rx benzonatate 200 mg capsule 200 mg PO TID PRN cough #30 caps 05/06/22 05/10/22 Rx montelukast 10 mg tablet 10 mg PO HS 05/10/22 05/10/22 History Patient History Medical History Anxiety and depression Atrial fibrillation Biventricular ICD (implantable cardioverter-defibrillator) in place (2015) LumatixTRONIC>GETS CHECKED BY DR. VARGAS Chronic diarrhea Chronic systolic congestive heart failure COVID-19 (~03/2021) Degenerative disc disease Degenerative lumbar spinal stenosis Diabetes mellitus, type 2 Diabetic neuropathy Dyslipidemia GERD without esophagitis History of basal cell carcinoma Hx of squamous cell carcinoma Hypertension Non-ischemic cardiomyopathy PAC (premature atrial contraction) Rheumatoid arthritis Sensorineural hearing loss (SNHL) of both ears Stage III chronic kidney disease Third degree AV block Surgical History History of anesthesia reaction CONFUSION WITH GALLBLADDER REMOVAL, AWARENESS DURING COLONOSCOPY History of cataract surgery RT/LEFT History of colonoscopy History of esophagogastroduodenoscopy (EGD) History of tooth extraction S/P cholecystectomy S/P total knee arthroplasty RT/LEFT S/P tubal ligation Family History Father Heart disease Mother Diabetes Heart disease Myocardial infarction Family history of diabetes mellitus Grandfather (Maternal) Prostate cancer Family history of diabetes mellitus Other Family history non-contributory No family history of adverse response to anesthesia Denies family history of Ovarian cancer Breast cancer Colorectal cancer Social History Smoking Status: Never smoker Second Hand Exposure: No; Hx Alcohol Use: No Hx Substance Use: No Preferred Language: Monegasque Communication Ability: Effective Visual Impairment: No Limitations Hearing Ability: Use of Hearing Aid [employer] Rep Required: No Beliefs That Will Affect Care: None marital status: Single Current Living Situation: Alone Current Living Situation Comment: pt lives alone, has daughter and son check on her current occupational status: retired Feels Safe at Home: Yes Childhood Exposure to Second-Hand Smoke: Yes Dental Care, Regularly: Yes Physical Activity Frequency: Does not Exercise Seatbelt Use: always Sunscreen Use: Yes Assistive Devices: Walker Physical Exam Physical Exam: GENERAL: This is an 87 year old female that does not appear in any acute distress. HEAD/FACE: Normocephalic and atraumatic. EYES: No drainage or conjunctival injection. ENT: Wearing mask appropriately. RESPIRATORY: Patient with unlabored breathing. No signs of respiratory distress. CHEST/AXILLA: Chest movement symmetrical. No deformities noted. ABDOMEN/GI: No distension BACK: Moves without difficulty. Mild lumbosacral tenderness. No myofascial spasm noted. No SI joint tenderness. SKIN: [place], warm and dry. No rash noted. MS/EXTREMITY: 4/5 strength of the lower extremities. NEURO: Alert and appears oriented. Speech is fluent. Cranial Nerves are grossly intact. PSYCH: Alert, pleasant, affect is calm Results (Pain Clinic) Diagnostic Review CT Findings: CT SCAN OF THE LUMBAR SPINE WITHOUT IV CONTRAST CLINICAL HISTORY: Acute on chronic low back pain. COMPARISON STUDY: Radiographs of the lumbar spine dated 10/16/2021. CT of the lumbar spine dated 06/07/2015. Abdominal CT dated 01/22/2021. TECHNIQUE: CT scan of the lumbar spine is performed from the lower thoracic spine to the sacrum. Images reviewed in the axial, sagittal, and coronal planes. IV contrast was not administered for this examination. A dose lowering technique was utilized adhering to the principles of ALARA. FINDINGS: The skeletal structures are osteopenic. There is no evidence of acute fracture or malalignment involving the lumbar spine. Vertebral body height is maintained. There is minimal anterolisthesis at L2-L3 and L3-L4. Alignment is otherwise preserved. There is straightening of the lumbar lordosis. Large anterior and lateral marginal osteophytes are seen throughout. There is no evidence of spondylolysis. No lytic or blastic lesion is seen. Advanced facet arthropathy is noted in the mid to lower lumbar region. There is severe disc space narrowing with endplate sclerosis at L3-L4 and L4-L5. Mild disc space narrowing is seen at the remaining lumbar levels. There are posterior disc osteophyte complexes at all lumbar levels. This contributes to multilevel acquired compromise of the central canal. This is moderate to severe at L3-L4 and at least moderate at L4-L5. A peripherally calcified synovial cyst is suggested posteriorly on the right at L3-L4. This effaces the posterior right aspect of the thecal sac. There are lateral disc extrusions at L3-L4, right greater than left. These likely impinge on the exiting bilateral L3 nerve roots. A large right lateral disc extrusion is seen at L4-L5 and likely impinges on the exiting right L4 nerve root. The visualized sacrum and bony pelvis appear intact. There is fatty atrophy of the paraspinous musculature. There is advanced atherosclerotic calcification of the normal caliber abdominal aorta. Cholecystectomy clips are noted. Simple and complex bilateral renal cysts measure up to 3 cm. Small nonobstructing bilateral renal calculi measure up to 3 mm. No retroperitoneal lymphadenopathy is seen. The partially imaged uterus contains numerous calcified fibroids. There is advanced diverticulosis of the visualized sigmoid colon. Pneumobilia is noted. There is airspace consolidation at the left lung base. The heart is enlarged and pacemaker leads are in place. There is a tiny hiatal hernia. Duodenal diverticula are noted. IMPRESSION: 1. Airspace consolidation at the left lung base is typical for pneumonia/aspiration pneumonitis. Clinical correlation will be required. Radiographic follow-up is recommended. 2. No acute bony abnormality is seen involving the lumbar spine. 3. Osteopenia with advanced lumbosacral spondylosis as above. 4. Bilateral nephrolithiasis. 5. Additional findings as above. ACT 112: Negative or not required by law. Dictated: 05/11/2022 7:57 AM Transcribed: 05/11/2022 8:39 AM Meagan [id number] VANNESSA_Inez Electronically signed by: Carlyle Lovelace M.D. 05/11/2022 8:52 AM
[2022-05-14] MEDS: INSULIN ASPART PER UNIT SC SCH ×4 (08:29→20:50)
[2022-05-14] MEDS: BENZONATATE 100 MG CAPSULE PO PRN ×3 (08:29→21:27)
[2022-05-14] MEDS: AMOXICILLIN/CLAVULANATE 500 MG TAB PO SCH ×2 (08:30→16:50)
[2022-05-14] MEDS: PANTOprazole 40 MG TAB PO SCH ×2 (08:30→21:27)
[2022-05-14] MEDS: MECLIZINE HCL 25 MG TAB PO PRN (08:31)
[2022-05-14] MEDS: CALCITRIOL 0.25 MCG CAPSULE PO SCH (08:31)
[2022-05-14] MEDS: METOPROLOL SUCC 50MG EXT REL TAB PO SCH (08:31)
[2022-05-14] MEDS: SPIRONOLACTONE 25 MG TAB PO SCH (08:33)
[2022-05-14] MEDS: ATORVASTATIN 10 MG TAB PO SCH (08:34)
[2022-05-14] MEDS: FUROSEMIDE 40 MG TAB PO SCH (08:34)
[2022-05-14] MEDS: FOLIC ACID 1 MG TAB PO SCH (08:34)
[2022-05-14] MEDS: CHOLECALCIFEROL 1,000 UNITS 25 MCG TAB PO SCH (08:34)
[2022-05-14] MEDS: DICLOFENAC SOD 1% GEL 100 GM TUBE EXT SCH ×4 (08:34→21:24)
[2022-05-14] MEDS: AZITHROMYCIN 250 MG TAB PO SCH (08:34)
[2022-05-14] MEDS: VITAMIN B COMPLEX TAB PO SCH (08:35)
[2022-05-14] MEDS: GABAPENTIN 100 MG CAP PO SCH ×3 (08:35→21:24)
[2022-05-14] MEDS: POLYETHYLENE (MIRALAX) 17 GM PACK PO SCH ×2 (08:35→21:28)
[2022-05-14] MEDS: LIDOCAINE 5% 1 PATCH TD SCH (08:36)
[2022-05-14] MEDS: traMADol HCL 50 MG TABLET PO PRN ×2 (09:51→21:26)
[2022-05-14 15:48] LABS: INR 1.7 (0.9-1.1); Prothrombin Time 17.5 Seconds (9.0-12.0)
[2022-05-14] MEDS ORDERED: WARFARIN SOD 2 MG TAB PO SCH (16:00)
[2022-05-14] MEDS: MONTELUKAST SODIUM 10 MG TABLET PO SCH (21:25)
[2022-05-14] MEDS: LORazepam 0.5 MG TAB PO PRN (21:27)
[2022-05-14] MEDS: SENNA 8.6 MG TAB PO SCH (21:28)
[2022-05-15] MEDS: ACETAMINOPHEN 500 MG TAB PO SCH ×3 (02:04→15:54)
[2022-05-15 07:43] LABS: Hematocrit (blood only) 38.3 % (34.1-44.9); Mean Corpuscular Hemoglobin 32.3 pg (25.0-34.0); Mean Corpuscular Hgb Conc 33.9 g/dL (32.0-36.0); Mean Platelet Volume 9.3 fL (9.4-12.3); Platelet Count 184 K/uL (130-400); RDW Coefficient of Variation 14.5 % (11.5-14.5); RDW Standard Deviation 47.9 fL (36.4-46.3); Red Blood Count 4.03 M/uL (3.93-5.22); White Blood Count 5.55 K/ul (4.8-10.8)
--- NOTE | 2022-05-15 07:47 | Hospitalist Progress Note ---
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 Lumbar spine CT showed severe multilevel spinal stenosis. Ortho Spine consulted and appreciate recommendations; given extensive multilevel disc disease, comorbidities, opt for conservative measures (pain management, PT, OT). Pain Management consulted; tramadol prn ordered and will have outpatient follow up for consideration of epidural injection. Gabapentin increased to 100mg morning and afternoon, 300mg at night (max dose for renal function is 600mg daily). PT and OT ordered, appreciate recommendations. Recommending rehab on discharge at this time. (2) Ambulatory dysfunction: Plan: secondary to #1, see above (3) Pneumonia: Plan: Left lower lobe pneumonia noted on CT. Likely secondary to decreased immune state secondary to influenza. Was started on cefepime/azithro, with improvement in WBC count, symptomatology, negative blood cultures. Transition to Augmentin/azithromycin (total of 7 days of Abx for CAP). Not requiring supplemental oxygen at this time. (4) Influenza A: Plan: Completed her fourth day of modified Tamiflu 45 mg daily dose for 4 days on 05/10. Continue as needed nebulizers, benzonatate for cough. (5) Chronic kidney disease, stage IV (severe): Plan: Creatinine baseline range 1.90-2.73. At baseline. Continue calcitriol, cholecalciferol. Renally dose medications. (6) GERD (gastroesophageal reflux disease): Plan: Continue pantoprazole 40 mg p.o. twice daily. (7) Rheumatoid arthritis: Plan: On methotrexate 5 mg weekly as outpatient. Continue folic acid, diclofenac sodium topically as needed. (8) DMII (diabetes mellitus, type 2): Plan: Continue usual dosing of glargine 25 units subcu every morning. Placed on Accu-Cheks before meals and at bedtime with NovoLog SSI. (9) Supratherapeutic INR: Plan: Atrial fibrillation/nonischemic cardiomyopathy/biventricular ICD/hypertension- INR 3.9 upon admissiondown to 1.6 today just resumed warfarin yesterday, continue home regimen (4 mg M///Guerra, 2 mg all other days). Continue metoprolol succinate, spironolactone. Continue home Lasix dosing. (10) Obstructive sleep apnea of adult: Plan: History of, does not use CPAP. (11) Non-ischemic cardiomyopathy: Plan: History of nonischemic cardiomyopathy, heart failure with improved ejection fraction (most recent echo 55 to 60% EF). Status post ICD/biventricular pacemaker in 2016. (12) Biventricular ICD (implantable cardioverter-defibrillator) in place: Plan: See above (13) Anxiety and depression: Plan: Continue lorazepam. (14) Atrial fibrillation: Plan: History of, had electrocardioversion in 2016, heart rate not irregular here. (15) Chronic anticoagulation: Plan: Warfarin as above. (16) Dyslipidemia: Plan: Continue atorvastatin. (17) Hypertension: Plan: Continue spironolactone, metoprolol succinate. (18) Diabetic neuropathy: Plan: Continue gabapentin at increased dose see #1. (19) Bacteriuria: Plan: Noted from ER urine collection, GNR >100k CFU. Has since resulted pansensitive Klebsiella. However, patient does not have any urinary symptoms. Current Abx for pneumonia should cover this regardless. Plan Full code Heart healthy, low-sodium, diabetic diet Warfarin home dosing described above Telemetry for cardiac monitoring Admission and Anticipated Discharge Date Admission Date: May 11, 2022 Subjective Overnight: No acute events overnight. Pain in lower extremities from the shins down today. Breathing well. No other complaints. Review of Systems Constitutional: no fever and no chills Respiratory: + cough; no dyspnea Cardiovascular: no chest pain and no palpitations Gastrointestinal: no abdominal pain, no nausea and no vomiting Physical Exam Constitutional: WD/WN, vitals as above Respiratory: normal respiratory effort, lungs clear to auscultation (cough intermittent) Cardiovascular: RRR, no murmur, no edema Gastrointestinal (Abdomen): normal bowel sounds, soft, nontender, no hepatosplenomegaly Skin: no rashes, warm and dry Psychiatric: A+Ox3, euthymic affect Results & Data Results & Data ([place]) Vital Signs (Past 12 Hours) Vital Signs Temp Pulse Pulse Resp BP Pulse Ox O2 Del Method 05/15/22 06:48 36.8 C 80 20 155/93 H 94 Room Air 05/14/22 20:00 Room Air 05/15/22 04:27 86 05/15/22 02:58 36.5 C 85 20 151/87 H 92 Room Air 05/14/22 23:03 36.6 C 80 22 133/76 98 Room Air PG Care Time/CCT Total # of Minutes Spent Total Time Spent with Patient: Total time spent is greater than 50% in coordination of care (as documented) at patient's floor/unit and/or counseling patient: Coding Level of Care Code 99034 Subseq Hosp Care Lvl 3 Diagnoses Lumbar spinal stenosis M48.061 Ambulatory dysfunction R26.2 Pneumonia J18.9 Influenza A J10.1 Chronic kidney disease, stage IV (severe) N18.4 GERD (gastroesophageal reflux disease) K21.9 Rheumatoid arthritis M06.9 DMII (diabetes mellitus, type 2) E11.9 Supratherapeutic INR R79.1 Obstructive sleep apnea of adult G47.33 Non-ischemic cardiomyopathy I42.8 Biventricular ICD (implantable cardioverter-defibrillator) in place Z95.810 Anxiety and depression F41.9; F32.A Atrial fibrillation I48.91 Chronic anticoagulation Z79.01 Dyslipidemia E78.5 Hypertension I10 Diabetic neuropathy E11.40 Bacteriuria R82.71
[2022-05-15 07:56] LABS: INR 1.6 (0.9-1.1); Prothrombin Time 16.2 Seconds (9.0-12.0)
[2022-05-15 08:03] LABS: BUN Creatinine Ratio 28.1 (10-20); Calcium 9.4 mg/dl (8.5-10.1); Creatinine Clr Calc Pharmacy 20.1 ml/min; Est GFR (African American) 21.2 ml/min; Est GFR (Non-African American) 18.3 ml/min; Potassium 4.3 mmol/L (3.5-5.1)
[2022-05-15] MEDS: AMOXICILLIN/CLAVULANATE 500 MG TAB PO SCH ×2 (09:10→15:57)
[2022-05-15] MEDS: GABAPENTIN 100 MG CAP PO SCH ×2 (09:11→15:54)
[2022-05-15] MEDS: FUROSEMIDE 40 MG TAB PO SCH (09:12)
[2022-05-15] MEDS: CHOLECALCIFEROL 1,000 UNITS 25 MCG TAB PO SCH (09:13)
[2022-05-15] MEDS: FOLIC ACID 1 MG TAB PO SCH (09:14)
[2022-05-15] MEDS: ATORVASTATIN 10 MG TAB PO SCH (09:15)
[2022-05-15] MEDS: CALCITRIOL 0.25 MCG CAPSULE PO SCH (09:15)
[2022-05-15] MEDS: AZITHROMYCIN 250 MG TAB PO SCH (09:16)
[2022-05-15] MEDS: DICLOFENAC SOD 1% GEL 100 GM TUBE EXT SCH ×4 (09:17→21:00)
[2022-05-15] MEDS: PANTOprazole 40 MG TAB PO SCH ×2 (09:21→21:08)
[2022-05-15] MEDS: POLYETHYLENE (MIRALAX) 17 GM PACK PO SCH ×2 (09:22→21:01)
[2022-05-15] MEDS: METOPROLOL SUCC 50MG EXT REL TAB PO SCH (09:22)
[2022-05-15] MEDS: LIDOCAINE 5% 1 PATCH TD SCH (09:23)
[2022-05-15] MEDS: VITAMIN B COMPLEX TAB PO SCH (09:24)
[2022-05-15] MEDS: SPIRONOLACTONE 25 MG TAB PO SCH (09:24)
[2022-05-15] MEDS: INSULIN ASPART PER UNIT SC SCH ×4 (09:25→21:26)
[2022-05-15] MEDS: LANTUS PER UNIT CHARGE SQ SCH (09:25)
[2022-05-15] MEDS: traMADol HCL 50 MG TABLET PO PRN ×3 (09:54→21:04)
[2022-05-15] MEDS: BENZONATATE 100 MG CAPSULE PO PRN ×2 (12:36→21:05)
[2022-05-15] MEDS ORDERED: WARFARIN SOD 4 MG TAB PO SCH (16:00)
[2022-05-15] MEDS ORDERED: GABAPENTIN 300 MG CAP PO SCH (21:00)
[2022-05-15] MEDS: SENNA 8.6 MG TAB PO SCH (21:02)
[2022-05-15] MEDS: LORazepam 0.5 MG TAB PO PRN (21:04)
[2022-05-15] MEDS: MONTELUKAST SODIUM 10 MG TABLET PO SCH (21:08)
[2022-05-16] MEDS: ACETAMINOPHEN 500 MG TAB PO SCH ×2 (01:18→08:40)
[2022-05-16 06:11] LABS: Basophils # (auto) 0.05 K/uL (0-0.2); Basophils % (auto) 0.9 %; Eosinophils % (auto) 12.8 %; Hematocrit (blood only) 36.2 % (34.1-44.9); Hemoglobin 12.4 g/dl (12.0-16.0); Immature Granulocytes # (auto) 0.03 K/uL (0.00-0.02); Immature Granulocytes % (auto) 0.5 %; Lymphocytes # (auto) 1.45 K/uL (1.2-3.4); Lymphocytes % (auto) 26.5 %; Mean Corpuscular Hemoglobin 32.4 pg (25.0-34.0); Mean Corpuscular Hgb Conc 34.3 g/dL (32.0-36.0); Mean Corpuscular Volume 94.5 fL (80.0-100.0); Mean Platelet Volume 9.3 fL (9.4-12.3); Monocytes % (auto) 7.3 %; Neutrophils # (auto) 2.84 K/uL (1.4-6.5); Platelet Count 163 K/uL (130-400); RDW Coefficient of Variation 14.6 % (11.5-14.5); RDW Standard Deviation 47.8 fL (36.4-46.3); Red Blood Count 3.83 M/uL (3.93-5.22); White Blood Count 5.47 K/ul (4.8-10.8)
[2022-05-16 06:23] LABS: INR 1.5 (0.9-1.1); Prothrombin Time 15.6 Seconds (9.0-12.0)
[2022-05-16 06:35] LABS: BUN Creatinine Ratio 26.8 (10-20); Calcium 9.2 mg/dl (8.5-10.1); Creatinine Clr Calc Pharmacy 18.9 ml/min; Est GFR (African American) 19.6 ml/min; Potassium 4.2 mmol/L (3.5-5.1)
--- NOTE | 2022-05-16 07:35 | Hospitalist Progress Note ---
Date of Service May 16, 2022 Assessment & Plan (1) Lumbar spinal stenosis: Plan: Multifactorial: Degenerative lumbar central and foraminal spinal stenosis, rheumatoid arthritis, additional symptomatology produced by influenza A/community-acquired pneumonia. Lumbar spine CT showed severe multilevel spinal stenosis. Ortho Spine consulted and appreciate recommendations; given extensive multilevel disc disease, comorbidities, opt for conservative measures (pain management, PT, OT). Pain Management consulted; tramadol prn ordered and will have outpatient follow up for consideration of epidural injection. Gabapentin increased to 100mg morning and afternoon, 300mg at night (max dose for renal function is 600mg daily). PT and OT ordered, appreciate recommendations. Recommending rehab on discharge at this time. (2) Ambulatory dysfunction: Plan: secondary to #1, see above (3) Pneumonia: Plan: Left lower lobe pneumonia noted on CT. Likely secondary to decreased immune state secondary to influenza. Was started on cefepime/azithro, with improvement in WBC count, symptomatology, negative blood cultures. Transition to Augmentin/azithromycin (total of 7 days of Abx for CAP). Not requiring supplemental oxygen at this time. (4) Influenza A: Plan: Completed her fourth day of modified Tamiflu 45 mg daily dose for 4 days on 05/10. Continue as needed nebulizers, benzonatate for cough. (5) Chronic kidney disease, stage IV (severe): Plan: Creatinine baseline range 1.90-2.73. At baseline. Continue calcitriol, cholecalciferol. Renally dose medications. (6) GERD (gastroesophageal reflux disease): Plan: Continue pantoprazole 40 mg p.o. twice daily. (7) Rheumatoid arthritis: Plan: On methotrexate 5 mg weekly as outpatient. Continue folic acid, diclofenac sodium topically as needed. (8) DMII (diabetes mellitus, type 2): Plan: Continue usual dosing of glargine 25 units subcu every morning. Placed on Accu-Cheks before meals and at bedtime with NovoLog SSI. (9) Supratherapeutic INR: Plan: Atrial fibrillation/nonischemic cardiomyopathy/biventricular ICD/hypertension- INR 3.9 upon admissiondown to 1.6 today just resumed warfarin yesterday, continue home regimen (4 mg M///Guerra, 2 mg all other days). Continue metoprolol succinate, spironolactone. Continue home Lasix dosing. (10) Obstructive sleep apnea of adult: Plan: History of, does not use CPAP. (11) Non-ischemic cardiomyopathy: Plan: History of nonischemic cardiomyopathy, heart failure with improved ejection fraction (most recent echo 55 to 60% EF). Status post ICD/biventricular pacemaker in 2016. (12) Biventricular ICD (implantable cardioverter-defibrillator) in place: Plan: See above (13) Anxiety and depression: Plan: Continue lorazepam. (14) Atrial fibrillation: Plan: History of, had electrocardioversion in 2016, heart rate not irregular here. (15) Chronic anticoagulation: Plan: Warfarin as above. (16) Dyslipidemia: Plan: Continue atorvastatin. (17) Hypertension: Plan: Continue spironolactone, metoprolol succinate. (18) Diabetic neuropathy: Plan: Continue gabapentin at increased dose see #1. (19) Bacteriuria: Plan: Noted from ER urine collection, GNR >100k CFU. Has since resulted pansensitive Klebsiella. However, patient does not have any urinary symptoms. Current Abx for pneumonia should cover this regardless. Plan Full code Heart healthy, low-sodium, diabetic diet Warfarin home dosing described above Telemetry for cardiac monitoring Admission and Anticipated Discharge Date Admission Date: May 11, 2022 Subjective No overnight events. Vitals normal. INR 1.5, Cr 2.50, C. diff negative Physical Exam Constitutional: WD/WN, vitals as above Respiratory: normal respiratory effort, lungs clear to auscultation (cough intermittent) Cardiovascular: RRR, no murmur, no edema Gastrointestinal (Abdomen): normal bowel sounds, soft, nontender, no hepatosplenomegaly Skin: no rashes, warm and dry Psychiatric: A+Ox3, euthymic affect Results & Data Results & Data ([facility]) Vital Signs (Past 12 Hours) Vital Signs Temp Pulse Pulse Resp BP BP Pulse Ox 05/16/22 07:32 36.5 C 80 18 131/83 91 05/15/22 20:00 05/16/22 04:25 82 05/16/22 04:22 36.5 C 81 15 125/85 93 05/15/22 23:39 36.8 C 80 14 115/72 92 05/15/22 20:00 36.6 C 81 12 133/79 92 O2 Del Method 05/16/22 07:32 Room Air 05/15/22 20:00 Room Air 05/16/22 04:25 05/16/22 04:22 Room Air 05/15/22 23:39 Room Air 05/15/22 20:00 Room Air PG Care Time/CCT Total # of Minutes Spent Total Time Spent with Patient: Total time spent is greater than 50% in coordination of care (as documented) at patient's floor/unit and/or counseling patient: Coding Diagnoses Lumbar spinal stenosis M48.061 Ambulatory dysfunction R26.2 Pneumonia J18.9 Influenza A J10.1 Chronic kidney disease, stage IV (severe) N18.4 GERD (gastroesophageal reflux disease) K21.9 Rheumatoid arthritis M06.9 DMII (diabetes mellitus, type 2) E11.9 Supratherapeutic INR R79.1 Obstructive sleep apnea of adult G47.33 Non-ischemic cardiomyopathy I42.8 Biventricular ICD (implantable cardioverter-defibrillator) in place Z95.810 Anxiety and depression F41.9; F32.A Atrial fibrillation I48.91 Chronic anticoagulation Z79.01 Dyslipidemia E78.5 Hypertension I10 Diabetic neuropathy E11.40 Bacteriuria R82.71
[2022-05-16] MEDS ORDERED: traMADol HCL 50 MG TABLET PO PRN (08:03)
[2022-05-16] MEDS: PANTOprazole 40 MG TAB PO SCH (08:39)
[2022-05-16] MEDS: ATORVASTATIN 10 MG TAB PO SCH (08:39)
[2022-05-16] MEDS: METOPROLOL SUCC 50MG EXT REL TAB PO SCH (08:39)
[2022-05-16] MEDS: FUROSEMIDE 40 MG TAB PO SCH (08:39)
[2022-05-16] MEDS: VITAMIN B COMPLEX TAB PO SCH (08:39)
[2022-05-16] MEDS: MECLIZINE HCL 25 MG TAB PO PRN (08:41)
[2022-05-16] MEDS: SPIRONOLACTONE 25 MG TAB PO SCH (08:41)
[2022-05-16] MEDS: CALCITRIOL 0.25 MCG CAPSULE PO SCH (08:41)
[2022-05-16] MEDS: GABAPENTIN 100 MG CAP PO SCH ×2 (08:41→12:29)
[2022-05-16] MEDS: AZITHROMYCIN 250 MG TAB PO SCH (08:42)
[2022-05-16] MEDS: FOLIC ACID 1 MG TAB PO SCH (08:42)
[2022-05-16] MEDS: CHOLECALCIFEROL 1,000 UNITS 25 MCG TAB PO SCH (08:42)
[2022-05-16] MEDS: AMOXICILLIN/CLAVULANATE 500 MG TAB PO SCH (08:42)
[2022-05-16] MEDS: DICLOFENAC SOD 1% GEL 100 GM TUBE EXT SCH ×2 (08:43→12:30)
[2022-05-16] MEDS: LIDOCAINE 5% 1 PATCH TD SCH (08:43)
[2022-05-16] MEDS: INSULIN ASPART PER UNIT SC SCH ×2 (08:44→12:28)
[2022-05-16] MEDS: LANTUS PER UNIT CHARGE SQ SCH (08:44)
[2022-05-16] MEDS: POLYETHYLENE (MIRALAX) 17 GM PACK PO SCH (08:44)
[2022-05-16] MEDS: BENZONATATE 100 MG CAPSULE PO PRN (10:07)
--- NOTE | 2022-05-16 11:24 | Discharge Summary ---
Discharge Summary Date of Service May 16, 2022 Admission HPI Per Admitting Provider The patient is an 87-year-old female with a past medical history including hypoglycemia due to insulin, diabetic neuropathy, CKD stage IV, GERD, RA, diabetes mellitus type 2, supratherapeutic INR, hyponatremia, respiratory failure due to COVID-19 infection 04/03, GERD, secondary hyperparathyroidism, SNHL of both ears, paroxysmal defibrillation, long-term anticoagulant use, ANN, ventricular bigeminy, dyslipidemia, hypertension and biventricular ICD in place. She has had chronic low back pain, and has resorted to using a walker to help with balance. [facility] to [facility]. She was diagnosed with influenza A on 05/06/2022, and is received 4 days of modified Tamiflu dosing as noted. She does report some shortness of breath, but this has been an ongoing issue, more recently worsened. She denies any productive cough. Admission Exam Per Admitting Provider The patient is awake, alert and oriented 3, well developed and well nourished, normocephalic and atraumatic, lying in bed and in no acute distress. HEENT--PERRL, EOMI, mucous membranes and oropharynx mildly dry. Neck--supple. No JVD. No bruits. Thyroid normal, trachea midline, no adenopathy. Heart--normal S1 and S2. No murmurs, rubs or gallops. Lungs-- Decreased breath sounds at bases bilaterally. No respiratory distress, no accessory muscle use. Abdomen--normal bowel sounds and soft. Nontender. Nondistended. Extremities--no cyanosis or clubbing. No edema. Dermatologic--normal skin turgor, normal color, no abnormal lymph nodes, no rash. Neurologic--cranial nerves II through XII grossly intact. Rheumatologic--limited exam due to pain Psychiatric--normal affect. Principal Dx & Hospital Course #1 = Principal Diagnosis (1) Lumbar spinal stenosis: Lumbar spinal stenosis: Multifactorial: Degenerative lumbar central and foraminal spinal stenosis, rheumatoid arthritis, additional symptomatology produced by influenza A/community-acquired pneumonia. Lumbar spine CT showed severe multilevel spinal stenosis. Ortho Spine consulted and appreciate recommendations; given extensive multilevel disc disease, comorbidities, opt for conservative measures (pain management, PT, OT). Continue tramadol 50mg q6h prn pain, pre-PT, pre-out of bed to chair. Gabapentin increased to 100mg morning and afternoon, 300mg at night (max dose for renal function is 600mg daily, may need adjustment if renal function changes). Pain Management consulted, recommends follow up for possible consideration for injection for pain. Information for office provided to patient/[facility]. PT and OT ordered, appreciate recommendations. Patient is self-limiting with regard to her progress due to pain fear and weakness. For discharge to [facility] today. Ambulatory dysfunction: secondary to #1, see above Pneumonia: Left lower lobe pneumonia noted on CT. Likely secondary to decreased immune state secondary to influenza. Was started on cefepime/azithro, with improvement in WBC count, symptomatology, negative blood cultures. To complete Augmentin on 05/17, and completed azithromycin 05/16. Not requiring supplemental oxygen at time of discharge. Influenza A: Completed her fourth day of modified Tamiflu 45 mg daily dose for 4 days on 05/10. Continue as needed nebulizers, benzonatate TID for cough. Chronic kidney disease, stage IV (severe): Creatinine baseline range 1.90-2.73. At baseline, Cr 2.5 on day of discharge. Continue calcitriol, cholecalciferol. Renally dose medications. GERD (gastroesophageal reflux disease): Continue pantoprazole 40 mg p.o. twice daily. Rheumatoid arthritis: On methotrexate 5 mg weekly as outpatient. Continue folic acid, diclofenac sodium topically as needed. DMII (diabetes mellitus, type 2): Continue usual dosing of glargine 25 units subcu every morning. Placed on Accu-Cheks before meals and at bedtime with NovoLog SSI. Subtherapeutic INR: Atrial fibrillation/nonischemic cardiomyopathy/biventricular ICD/hypertension- INR 3.9 upon admissiondown to 1.5 on day of discharge, just resumed warfarin 05/15, continue daily warfarin 4mg (increased from previous dosing at home) with repeat INR at facility. Continue metoprolol succinate, spironolactone. Continue home Lasix dosing. Obstructive sleep apnea of adult: History of, does not use CPAP. Non-ischemic cardiomyopathy: History of nonischemic cardiomyopathy, heart failure with improved ejection fraction (most recent echo 55 to 60% EF). Status post ICD/biventricular pacemaker in 2016. Biventricular ICD (implantable cardioverter-defibrillator) in place: See above Anxiety and depression: Continue lorazepam. Atrial fibrillation: History of, had electrocardioversion in 2016, heart rate not irregular here. Dyslipidemia: Continue atorvastatin. Hypertension: Continue spironolactone, metoprolol succinate. Diabetic neuropathy: Continue gabapentin at increased dose see #1. Bacteriuria: Noted from ER urine collection, GNR >100k CFU. Has since resulted pansensitive Klebsiella. However, patient does not have any urinary symptoms. Current Abx for pneumonia should cover this regardless. Constipation: Miralax as needed, Senna nightly. Can adjust as necessary for diarrhea. Had negative C diff while in hospital. (2) Ambulatory dysfunction: (3) Pneumonia: (4) Influenza A: (5) Chronic kidney disease, stage IV (severe): (6) GERD (gastroesophageal reflux disease): (7) Rheumatoid arthritis: (8) DMII (diabetes mellitus, type 2): (9) Supratherapeutic INR: (10) Obstructive sleep apnea of adult: (11) Non-ischemic cardiomyopathy: (12) Biventricular ICD (implantable cardioverter-defibrillator) in place: (13) Anxiety and depression: (14) Atrial fibrillation: (15) Chronic anticoagulation: (16) Dyslipidemia: (17) Hypertension: (18) Diabetic neuropathy: (19) Bacteriuria: Discharge Exam Constitutional WD/WN, vitals as above Respiratory normal respiratory effort, lungs clear to auscultation upper airway sounds, intermittent cough Cardiovascular RRR, no murmur, no edema Skin no rashes, warm and dry Neurologic radiculopathy pain from lumbar spinal stenosis better today compared to yesterday Psychiatric A+Ox3, euthymic affect Updated Medication List Medication Instructions Recorded Confirmed Type methotrexate sodium 2.5 mg tablet 5 mg PO WK 03/30/19 05/10/22 History ipratropium bromide 21 mcg (0.03 2 sprays intranasal BID PRN 09/29/19 05/10/22 Rx %) nasal spray Congestion #30 mL meclizine 25 mg tablet 25 mg PO TID PRN dizziness #30 tabs 12/20/19 05/10/22 Rx cholecalciferol (vitamin D3) 50 2,000 unit PO QAM #90 caps 03/25/20 05/10/22 Rx mcg (2,000 unit) capsule (Vitamin D3) diclofenac sodium 1 % topical gel 2 g EXT QID #100 grams 01/28/21 05/10/22 Rx (Voltaren Arthritis Pain) buspirone 5 mg tablet 5 mg PO BID PRN anxiety #60 tabs 04/11/21 05/10/22 Rx spironolactone 50 mg tablet 50 mg PO QAM #90 tabs 05/05/21 05/10/22 Rx calcitriol 0.25 mcg capsule 0.25 mcg PO DAILY #90 caps 05/27/21 05/10/22 Rx insulin lispro 100 unit/mL See Rx Instructions subcut AC #15 06/20/21 05/10/22 Rx subcutaneous pen (Humalog KwikPen mL (U-100) Insulin) vitamin B complex 1 tab PO DAILY 07/02/21 05/10/22 History blood sugar diagnostic #100 ea 09/01/21 04/30/22 Rx pen needle, diabetic 32 gauge x #100 ea 09/01/21 04/30/22 Rx 1/4" (BD Ultra-Fine Micro Pen Needle) folic acid 1 mg tablet 2 mg PO DAILY 09/04/21 05/10/22 History atorvastatin 10 mg tablet 10 mg PO DAILY #90 tabs 09/11/21 05/10/22 Rx flash glucose scanning reader #2 ea 10/16/21 04/30/22 Rx (FreeStyle Goldie 14 Day [place]) flash glucose sensor (FreeStyle #2 ea 10/16/21 04/30/22 Rx Goldie 14 Day Sensor kit) furosemide 40 mg tablet See Rx Instructions .Route 11/18/21 05/10/22 Rx .COMPLEX #135 tabs insulin glargine U-300 conc 300 25 unit (0.0833 mL) subcut QAM 90 01/06/22 05/10/22 Rx unit/mL (1.5 mL) subcutaneous pen days #9 mL (Toujeo SoloStar U-300 Insulin) blood sugar diagnostic #100 ea 02/17/22 04/30/22 Rx walker #1 ea 02/17/22 04/30/22 Rx metoprolol succinate 200 mg 200 mg PO DAILY #90 tabs 02/25/22 05/10/22 Rx tablet,extended release 24 hr pantoprazole 40 mg tablet,delayed 40 mg PO BID #180 tabs 02/25/22 05/10/22 Rx release lorazepam 0.5 mg tablet 0.5 mg PO BID PRN anxiety #60 tabs 04/30/22 05/10/22 Rx miscellaneous medical supply #1 ea 05/04/22 Rx benzonatate 200 mg capsule 200 mg PO TID PRN cough #30 caps 05/06/22 05/10/22 Rx montelukast 10 mg tablet 10 mg PO HS 05/10/22 05/10/22 History amoxicillin 500 mg-potassium 1 tab PO BIDM 2 days #0 tabs 05/16/22 Rx clavulanate 125 mg tablet gabapentin 100 mg capsule 100 mg PO BID@0900,1400 #0 caps 05/16/22 Rx gabapentin 300 mg capsule 300 mg PO HS #0 caps 05/16/22 Rx lidocaine 5 % topical patch 1 patch transdermal QAM #0 ea 05/16/22 Rx polyethylene glycol 3350 17 gram 17 g PO BID #0 ea 05/16/22 Rx oral powder packet (Miralax) sennosides 8.6 mg tablet (Senokot) 17.2 mg PO HS #0 tabs 05/16/22 Rx tramadol 50 mg tablet 50 mg PO Q6 PRN #0 tabs 05/16/22 Rx warfarin 4 mg tablet (Jantoven) 4 mg PO DAILY@1600 #0 tabs 05/16/22 Rx Hospital Stay Data Consultations 05/10/22 23:11 ED Decision to Admit Stat 05/13/22 08:59 Consult Orthopedic Surgery Routine 05/13/22 12:54 Consult Pain Management Routine Diagnostic Imagining Performed 05/10/22 19:45 CT head/brain wo con Stat CT lumbar spine wo con Stat Pending Results Patient Have Any Pending Studies at Discharge: No Discharge Instructions Given to Patient (Per Discharging Provider) Lumbar spinal stenosis: Multifactorial: Degenerative lumbar central and foraminal spinal stenosis, rheumatoid arthritis, additional symptomatology produced by influenza A/community-acquired pneumonia. Lumbar spine CT showed severe multilevel spinal stenosis. Ortho Spine consulted and appreciate recommendations; given extensive multilevel disc disease, comorbidities, opt for conservative measures (pain management, PT, OT). Continue tramadol 50mg q6h prn pain, pre-PT, pre-out of bed to chair. Gabapentin increased to 100mg morning and afternoon, 300mg at night (max dose for renal function is 600mg daily, may need adjustment if renal function changes). Pain Management consulted, recommends follow up for possible consideration for injection for pain. This appointment will need to be scheduled. PT and OT ordered, appreciate recommendations, for discharge to [facility] today. Patient is self-limiting with regard to her progress due to pain fear and weakness. Ambulatory dysfunction: secondary to #1, see above Pneumonia: Left lower lobe pneumonia noted on CT. Likely secondary to decreased immune state secondary to influenza. Was started on cefepime/azithro, with improvement in WBC count, symptomatology, negative blood cultures. To complete Augmentin on 05/17, and completed azithromycin 05/16. Not requiring supplemental oxygen at this time. Influenza A: Completed her fourth day of modified Tamiflu 45 mg daily dose for 4 days on 05/10. Continue as needed nebulizers, benzonatate TID for cough. Chronic kidney disease, stage IV (severe): Creatinine baseline range 1.90-2.73. At baseline, Cr 2.5 on day of discharge. Continue calcitriol, cholecalciferol. Renally dose medications. GERD (gastroesophageal reflux disease): Continue pantoprazole 40 mg p.o. twice daily. Rheumatoid arthritis: On methotrexate 5 mg weekly as outpatient. Continue folic acid, diclofenac sodium topically as needed. DMII (diabetes mellitus, type 2): Continue usual dosing of glargine 25 units subcu every morning. Placed on Accu-Cheks before meals and at bedtime with NovoLog SSI. Subtherapeutic INR: Atrial fibrillation/nonischemic cardiomyopathy/biventricular ICD/hypertension- INR 3.9 upon admissiondown to 1.5 on day of discharge, just resumed warfarin 05/15, continue daily warfarin 4mg (increased from previous dosing at home) with repeat INR at facility. Continue metoprolol succinate, spironolactone. Continue home Lasix dosing. Obstructive sleep apnea of adult: History of, does not use CPAP. Non-ischemic cardiomyopathy: History of nonischemic cardiomyopathy, heart failure with improved ejection fraction (most recent echo 55 to 60% EF). Status post ICD/biventricular pacemaker in 2016. Biventricular ICD (implantable cardioverter-defibrillator) in place: See above Anxiety and depression: Continue lorazepam. Atrial fibrillation: History of, had electrocardioversion in 2016, heart rate not irregular here. Dyslipidemia: Continue atorvastatin. Hypertension: Continue spironolactone, metoprolol succinate. Diabetic neuropathy: Continue gabapentin at increased dose see #1. Bacteriuria: Noted from ER urine collection, GNR >100k CFU. Has since resulted pansensitive Klebsiella. However, patient does not have any urinary symptoms. Current Abx for pneumonia should cover this regardless. Constipation: Miralax as needed, Senna nightly. Can adjust as necessary for diarrhea. Had negative C diff while in hospital. Total Time Total Time Spent Total Time Spent (In Minutes): 45 min Coding Level of Care Code D/C DAY MANAGEMENT >30 MINS Diagnoses Lumbar spinal stenosis M48.061 Ambulatory dysfunction R26.2 Pneumonia J18.9 Influenza A J10.1 Chronic kidney disease, stage IV (severe) N18.4 GERD (gastroesophageal reflux disease) K21.9 Rheumatoid arthritis M06.9 DMII (diabetes mellitus, type 2) E11.9 Supratherapeutic INR R79.1 Obstructive sleep apnea of adult G47.33 Non-ischemic cardiomyopathy I42.8 Biventricular ICD (implantable cardioverter-defibrillator) in place Z95.810 Anxiety and depression F41.9; F32.A Atrial fibrillation I48.91 Chronic anticoagulation Z79.01 Dyslipidemia E78.5 Hypertension I10 Diabetic neuropathy E11.40 Bacteriuria R82.71
[2022-05-16] MEDS ORDERED: WARFARIN SOD 2 MG TAB PO SCH (16:00)
[2022-05-16] MEDS ORDERED: WARFARIN SOD 4 MG TAB PO SCH (16:00)
== END 2022-05-16 15:05 | DRG 194 ==
LOC: ED 19:25 → SUATTDRO 05-11 → EDINP 05-11 → 2E 05-11 01:37

== ENCOUNTER 2022-10-21 12:25 | Inpatient (IN) ==
[2022-10-21] MEDS ORDERED: SODIUM CHLORIDE 0.9% 1000ML 1,000 ML IV STA (12:51)
--- NOTE | 2022-10-21 13:34 | XRay Report ---
XR chest 1V portable CLINICAL HISTORY: Fever TECHNIQUE: Single frontal radiograph of the chest was obtained. Comparison: Comparison is made to chest radiograph 05/10/2022 FINDINGS: Pacemaker defibrillator is seen. Calcified aortic knob is seen. The lungs are clear. No evidence of p leural effusion or pneumothorax. IMPRESSION: No acute abnormalities and in particular no radiographic evidence of pneumonia. ACT 112: Negative or not required by law. Electronically signed by: Yon Quispe M.D. 10/21/2022 1:33 PM
[2022-10-21] MEDS ORDERED: CEFEPIME 2,000 MG/20 ML VIAL IV STA (13:51)
[2022-10-21] MEDS ORDERED: ACETAMINOPHEN 500 MG TAB PO STA (14:15)
[2022-10-21 14:31] LABS: Adenovirus PCR Not Detected (NotDetected); Bordetella parapertussis PCR Not Detected (NotDetected); Bordetella pertussis PCR Not Detected (NotDetected); Chlamydia pneumoniae PCR Not Detected (NotDetected); Coronavirus 229E PCR Not Detected (NotDetected); Coronavirus CoV-2 (COVID19)PCR Not Detected (NotDetected); Coronavirus HKU1 PCR Not Detected (NotDetected); Coronavirus NL63 PCR Not Detected (NotDetected); Coronavirus OC43PCR Not Detected (NotDetected); Human Metapneumovirus PCR Not Detected (NotDetected); Influenza A PCR Not Detected (NotDetected); Influenza B PCR Not Detected (NotDetected); Mycoplasma pneumoniae PCR Not Detected (NotDetected); Parainfluenza Virus 1 PCR Not Detected (NotDetected); Parainfluenza Virus 2 PCR Not Detected (NotDetected); Parainfluenza Virus 3 PCR Not Detected (NotDetected); Parainfluenza Virus 4 PCR Not Detected (NotDetected); Respiratory Syncytial VirusPCR Not Detected (NotDetected); Rhinovirus/Enterovirus PCR Not Detected (NotDetected)
[2022-10-21] MEDS ORDERED: SODIUM CHLORIDE 0.9% 1000ML 1,300 ML IV ONE (14:52)
[2022-10-21 15:02] LABS: INR 2.7 (0.9-1.1); Prothrombin Time 27.7 Seconds (9.0-12.0)
[2022-10-21 15:11] LABS: Albumin Level 3.6 gm/dl (3.4-5.0); Bilirubin,Total 0.7 mg/dl (0.2-1.0); Calcium 9.3 mg/dl (8.6-10.3); Potassium 3.7 mmol/L (3.5-5.1)
[2022-10-21 15:17] LABS: Albumin Globulin Ratio 1.3 (0.9-2); BUN Creatinine Ratio 25.7 (10-20); Creatinine Clr Calc Pharmacy 28.6 ml/min; Est GFR (African American) 30.2 ml/min; Est GFR (Non-African American) 26.1 ml/min; Globulin 2.8 gm/dl (2.5-4.0); Total Protein 6.4 gm/dl (6.0-8.3); Troponin I High Sensitivity 14.2 pg/ml (0-14)
[2022-10-21 15:39] LABS: Basophils # (auto) 0.08 K/uL (0-0.2); Basophils % (auto) 0.3 %; Eosinophils # (auto) 0.02 K/uL (0-0.50); Eosinophils % (auto) 0.1 %; Hematocrit (blood only) 39.5 % (37.0-47.0); Hemoglobin 13.2 g/dl (12.0-16.0); Immature Granulocytes % (auto) 0.8 %; Lymphocytes # (auto) 1.02 K/uL (1.2-3.4); Lymphocytes % (auto) 4.3 %; Mean Corpuscular Hemoglobin 30.5 pg (25.0-34.0); Mean Corpuscular Hgb Conc 33.4 g/dL (32.0-36.0); Mean Corpuscular Volume 91.2 fL (80.0-100.0); Mean Platelet Volume 9.7 fL (9.4-12.4); Monocytes # (auto) 1.14 K/uL (0.11-0.59); Monocytes % (auto) 4.8 %; Neutrophils # (auto) 21.43 K/uL (1.40-6.50); Neutrophils % (auto) 89.7 %; Platelet Count 175 K/uL (130-400); Platelet Estimate Normal (Normal); RDW Coefficient of Variation 13.2 % (11.5-14.5); RDW Standard Deviation 44.6 fL (36.4-46.3); Red Blood Count 4.33 M/uL (4.20-5.40); White Blood Count 23.89 K/ul (4.8-10.8)
[2022-10-21 15:39] LABS: Appearance Urine Clear (Clear); Bacteria Urine Automated Negative (Negative); Bilirubin Urine Negative (Negative); Blood Urine Negative (Negative); Color Urine Yellow; Epithelial Cell Urine Auto >30 /lpf (0-5); Glucose Urine UA Trace (Negative); Ketones Urine Negative (Negative); Leukocyte Esterase Urine 2+ (Negative); Nitrite Urine Negative (Negative); Protein Urine Negative (Negative); RBC Urine Automated 0-4 /hpf (0-4); Specific Gravity Urine 1.009 (1.000-1.030); Urobilinogen Urine Negative (Negative); WBC Urine Automated >30 /hpf (0-5)
--- NOTE | 2022-10-21 15:46 | History & Physical Report ---
Date of Service October 21, 2022 Assessment & Plan (1) Fever: Plan: Patient is 87 y/o F with PMH nonischemic cardiomyopathy, s/p ICD, paroxysmal atrial fibrillation anticoagulated on warfarin, history of cardioversion, DM II, HTN, dyslipidemia, CKD III-IV, rheumatoid arthritis presented to ER from [facility] for fever today In ER T: 38.6C oral. WBC: 23.8, procalcitonin: 0.7. UA was not a clean-catch specimen In ER given 1300ml NSS, cefepime Lactate: 2.2 -->1.5 Blood cultures pending Obtain straight cath UA CXR: No acute abnormalities and in particular no radiographic evidence of pneumonia. CT chest: No acute abnormalities and in particular no evidence of airspace opacities. Interstitial fibrotic changes with pulmonary hypertension. Continue cefepime Denies N/V/D, abdominal pain. If would develop symptoms consider further imaging CBC, CMP in a.m. (2) Hypoxia: Plan: Noted to be hypoxic at 87% on room air at [facility]. In ER 88% on room air up to 95% on 3 L via nasal cannula Chest x-ray and CT chest scan without infiltrate. CT chest shows interstitial fibrotic changes Supplemental oxygen Incentive spirometry (3) Elevated troponin: Plan: Initial high-sensitivity troponin: 14 EKG paced rhythm Patient without chest pain or shortness of breath Trend troponin EKG in a.m. If troponins uptrending consider echo, cardiology consult (4) Non-ischemic cardiomyopathy: (5) Chronic systolic congestive heart failure: (6) Biventricular ICD (implantable cardioverter-defibrillator) in place: Plan: S/p ICD in 2015 Echo 2020: EF: 55-60%, grade 1 diastolic dysfunction Hold Lasix and spironolactone and reevaluate tomorrow (7) Paroxysmal atrial fibrillation: Plan: Chronically anticoagulated on warfarin INR: 2.7 Continue warfarin, metoprolol succinate (8) DMII (diabetes mellitus, type 2): Plan: A1c: 7.0 on 07/23/2022 Hold home insulin Basal bolus insulin per protocol A1c in a.m. (9) Stage III chronic kidney disease: Plan: Stage III-IV Cr: 1.75. Baseline 1.7-2 (10) Rheumatoid arthritis: Plan: CRP, ESR pending DDx: RA flare DVT Prophylaxis Anticoagulated on warfarin. INR therapeutic DNR/DNI as per discussion with pt Follows with Dr Gasca at [facility] for routine care Pt was seen and care coordinated with Dr Santana. See addendum I spent a total of 82 minutes reviewing notes, outpatient records, labs, medication, coordinating, documenting and providing care for this patient excluding time spent in the performance of separately billed services. History of Present Illness Chief Complaint: Fever Primary Care Provider: [facility], [employer] [facility] Patient is 87 y/o F with PMH nonischemic cardiomyopathy, s/p ICD, paroxysmal atrial fibrillation anticoagulated on warfarin, history of cardioversion, DM II, HTN, dyslipidemia, CKD III-IV, rheumatoid arthritis presented to ER for fever. Patient from [facility]. Staff reports today noticed patient had chills and was clammy and that patient reported increased joint pain. It is reported patient had pulse ox of 87% on RA today and was referred to ER. Patient states yesterday had mild frontal NGUYEN. Denies current NGUYEN. States has chronic diffuse joint pain. Patient states that approximately one week ago had some swelling to bilateral wrists and wrists felt hot and more painful. Reports urinary frequency but unsure if secondary to taking diuretic. Patient self transfers, but primarily not ambulatory. Patient reports nausea occurs approximately once a month and she thinks its related to not having full bowel movements. Denies any nausea the past week. Denies V/D/C, NGUYEN, dizziness, syncope, vision changes, CP, SOB, orthopnea, palpitations, cough, sore throat, choking, otalgia, rhinorrhea, abdominal pain, paresthesias, increased extremity weakness, extremity edema, rashes, dysuria, hematuria. Allergies Allergy/AdvReac Type Severity Reaction Status Date / Time amiodarone AdvReac Intermediate gi distress Verified 10/21/22 15:47 aspirin AdvReac Intermediate history of Verified 10/21/22 15:47 ulcers nortriptyline AdvReac Unknown DOESN'T Verified 10/21/22 15:47 REMEMBER Home Medications Medication Instructions Recorded Confirmed Type meclizine 25 mg tablet 25 mg PO TID PRN dizziness #30 tabs 12/20/19 10/21/22 Rx cholecalciferol (vitamin D3) 50 2,000 unit PO QAM #90 caps 03/25/20 10/21/22 Rx mcg (2,000 unit) capsule (Vitamin D3) buspirone 5 mg tablet 5 mg PO BID PRN anxiety #60 tabs 04/11/21 10/21/22 Rx calcitriol 0.25 mcg capsule 0.25 mcg PO DAILY #90 caps 05/27/21 10/21/22 Rx vitamin B complex 1 tab PO DAILY 07/02/21 10/21/22 History blood sugar diagnostic #100 ea 09/01/21 05/20/22 Rx pen needle, diabetic 32 gauge x #100 ea 09/01/21 05/20/22 Rx 1/4" (BD Ultra-Fine Micro Pen Needle) folic acid 1 mg tablet 2 mg PO DAILY 09/04/21 10/21/22 History atorvastatin 10 mg tablet 10 mg PO DAILY #90 tabs 09/11/21 10/21/22 Rx flash glucose scanning reader #2 ea 10/16/21 05/20/22 Rx (FreeStyle Goldie 14 Day [place]) flash glucose sensor (FreeStyle #2 ea 10/16/21 05/20/22 Rx Goldie 14 Day Sensor kit) blood sugar diagnostic #100 ea 02/17/22 05/20/22 Rx walker #1 ea 02/17/22 05/20/22 Rx metoprolol succinate 200 mg 200 mg PO DAILY #90 tabs 02/25/22 10/21/22 Rx tablet,extended release 24 hr pantoprazole 40 mg tablet,delayed 40 mg PO BID #180 tabs 02/25/22 10/21/22 Rx release lorazepam 0.5 mg tablet 0.5 mg PO BID PRN anxiety #60 tabs 04/30/22 10/21/22 Rx miscellaneous medical supply #1 ea 05/04/22 05/20/22 Rx benzonatate 200 mg capsule 200 mg PO TID PRN cough #30 caps 05/06/22 10/21/22 Rx montelukast 10 mg tablet 10 mg PO DAILY 05/10/22 10/21/22 History gabapentin 100 mg capsule 100 mg PO BID@0900,1400 #0 caps 05/16/22 10/21/22 Rx gabapentin 300 mg capsule 300 mg PO HS #0 caps 05/16/22 10/21/22 Rx warfarin 4 mg tablet (Jantoven) 4 mg PO DAILY@1600 #0 tabs 05/16/22 10/21/22 Rx acetaminophen 325 mg tablet 650 mg PO Q6 PRN Fever Or Pain 08/28/22 10/21/22 History furosemide 40 mg tablet 40 mg PO DAILY #90 tabs 08/28/22 10/21/22 Rx hydrocodone 5 mg-acetaminophen 325 1 tab PO Q4 PRN Severe Pain (Scale 08/28/22 10/21/22 History mg tablet Score 7-10) insulin glargine U-300 conc 300 25 unit subcut DAILY 08/28/22 10/21/22 History unit/mL (1.5 mL) subcutaneous pen (Toujeo SoloStar U-300 Insulin) polyethylene glycol 3350 17 gram 17 g PO DAILY PRN Constipation 08/28/22 10/21/22 History oral powder packet (Miralax) spironolactone 25 mg tablet 25 mg PO 3XWK 08/28/22 10/21/22 History venlafaxine 37.5 mg 37.5 mg PO HS 08/28/22 10/21/22 History capsule,extended release 24 hr insulin lispro 100 unit/mL 1 sliding scale dose subcut TIDM 09/21/22 10/21/22 History subcutaneous solution (Humalog U-100 Insulin) Past Med/Surg History Medical History Anxiety and depression Atrial fibrillation Biventricular ICD (implantable cardioverter-defibrillator) in place (2015) Doubles AlleyTRONIC>GETS CHECKED BY DR. VARGAS Chronic diarrhea Chronic systolic congestive heart failure COVID-19 (~03/2021) Degenerative disc disease Degenerative lumbar spinal stenosis Diabetes mellitus, type 2 Diabetic neuropathy CARRILLO (dyspnea on exertion) Dyslipidemia GERD without esophagitis History of basal cell carcinoma Hx of squamous cell carcinoma Hypertension Non-ischemic cardiomyopathy PAC (premature atrial contraction) Rheumatoid arthritis Sensorineural hearing loss (SNHL) of both ears Stage III chronic kidney disease Third degree AV block Surgical History History of anesthesia reaction CONFUSION WITH GALLBLADDER REMOVAL, AWARENESS DURING COLONOSCOPY History of cataract surgery RT/LEFT History of colonoscopy History of esophagogastroduodenoscopy (EGD) History of tooth extraction S/P cholecystectomy S/P total knee arthroplasty RT/LEFT S/P tubal ligation Family History Father Heart disease Mother Diabetes Heart disease Myocardial infarction Family history of diabetes mellitus Grandfather (Maternal) Prostate cancer Family history of diabetes mellitus Other Family history non-contributory No family history of adverse response to anesthesia Denies family history of Ovarian cancer Breast cancer Colorectal cancer Social History Smoking Status: Never smoker Second Hand Exposure: No; Do You Dip or Chew Tobacco: No; Tobacco Cessation Education Requested by Patient: No Hx Alcohol Use: No Hx Substance Use: No Preferred Language: Sami Communication Ability: Effective Communication Ability Comment: pt does have earring aids Visual Impairment: No Limitations Hearing Ability: Use of Hearing Aid Statistician Theoretical Required: No Beliefs That Will Affect Care: Scientology Scientology Beliefs: jehovah's witness marital status: Single Current Living Situation: Snf Current Living Situation Comment: pt lives alone, has daughter and son check on her current occupational status: retired Feels Safe at Home: Yes Safety Concerns: Feels Safe At This Time Childhood Exposure to Second-Hand Smoke: Yes Diet: regular Dental Care, Regularly: Yes Physical Activity Frequency: Does not Exercise Seatbelt Use: always Sunscreen Use: Yes Assistive Devices: Glasses, Hearing Aid - Bilateral and Wheelchair Review of Systems Review of Systems: All systems reviewed & are unremarkable except as noted in HPI & below Physical Exam Physical Exam: General: no distress, obese elderly female Head: normocephalic, atraumatic Eyes: conjunctiva non-injected, anicteric ENT: normal inspection external ears, nose, mucous membranes moist Neck: supple, trachea midline Lungs: no respiratory distress on current 3L via NC with sat 93%, +rales bilateral bases, no wheezing/rhonchi CV: RRR, no murmur Abd: normal BS, soft, non-tender Ext: no cyanosis, no calf tenderness; bilateral lower legs large but without pitting edema, no joint erythema noted Neuro: A&O x 3, no focal deficits noted, normal affect Skin: warm, dry Results & Data Results & Data Vital Signs (Past 12 Hours) Vital Signs Temp Pulse Pulse Resp BP BP Pulse Ox 10/21/22 15:03 80 17 95 10/21/22 15:03 110/48 L 10/21/22 15:00 80 20 96 05/10/23 15:00 91/51 L 10/21/22 14:30 80 23 94 10/21/22 14:30 128/60 10/21/22 14:00 80 21 96 10/21/22 14:00 137/63 10/21/22 14:35 36.8 C 10/21/22 13:30 80 24 95 10/21/22 13:30 107/61 10/21/22 13:00 84 16 94 10/21/22 13:00 127/66 10/21/22 13:03 38.6 C H 10/21/22 13:02 84 10/21/22 12:45 10/21/22 12:39 85 20 124/66 88 L 10/21/22 12:39 36.9 C 85 20 124/66 88 L O2 Del Method O2 Flow Rate 10/21/22 15:03 Nasal Cannula 3 10/21/22 15:03 10/21/22 15:00 Nasal Cannula 3 10/21/22 15:00 10/21/22 14:30 Nasal Cannula 3 10/21/22 14:30 10/21/22 14:00 Nasal Cannula 3 10/21/22 14:00 10/21/22 14:35 10/21/22 13:30 Nasal Cannula 4 10/21/22 13:30 10/21/22 13:00 Nasal Cannula 4 10/21/22 13:00 10/21/22 13:03 10/21/22 13:02 10/21/22 12:45 Nasal Cannula 4 10/21/22 12:39 Room Air 10/21/22 12:39 Room Air Laboratory Results Short CBC 10/21/22 Range/Units 14:21 WBC 23.89 H (4.8-10.8) K/ul Hgb 13.2 (12.0-16.0) g/dl Hct 39.5 (37.0-47.0) % Plt Count 175 (130-400) K/uL BMP 10/21/22 14:21 Sodium 133 L Potassium 3.7 Chloride 96 L Carbon Dioxide 27 BUN 45 H Creatinine 1.75 H Glucose 204 H Calcium 9.3 Liver Function 10/21/22 Range/Units 14:21 Total Bilirubin 0.7 (0.2-1.0) mg/dl AST 20 (13-39) U/L ALT 15 (7-52) U/L Alkaline Phosphatase 73 (34-104) U/L Albumin 3.6 (3.4-5.0) gm/dl Urine 10/21/22 10/21/22 Range/Units 14:50 17:10 Urine Color Yellow Yellow Urine Appearance Clear Clear (Clear) Urine pH 6.0 5.5 (4.5-7.5) Ur Specific [place] 1.009 1.009 (1.000-1.030) Urine Protein Negative Negative (Negative) Urine Glucose (UA) Trace H Trace H (Negative) Diagnostic Findings Chest X-Ray 10/21/22 12:51 XR chest 1V portable CLINICAL HISTORY: Fever TECHNIQUE: Single frontal radiograph of the chest was obtained. Comparison: Comparison is made to chest radiograph 05/10/2022 FINDINGS: Pacemaker defibrillator is seen. Calcified aortic knob is seen. The lungs are clear. No evidence of pleural effusion or pneumothorax. IMPRESSION: No acute abnormalities and in particular no radiographic evidence of pneumonia. ACT 112: Negative or not required by law. Electronically signed by: Yon Quispe M.D. 10/21/2022 1:[address] 10/21/22 14:30 CT chest diagnostic wo con CLINICAL HISTORY: fever, hypoxia TECHNIQUE: Multidetector row helical CT of the chest was performed. Coronal and sagittal reformations were obtained. Automated dose lowering techniques and/or adjustment according to patient size were utilized for this exam. CT DOSE: 618.67 mGy.cm Comparison: None available at the time of this dictation. FINDINGS: Lungs and pleura: Scarring and bronchiectasis is seen in the dependent portions of the lungs. Calcified granulomata are seen. No airspace opacities are seen. Heart and pericardium: There is cardiomegaly without evidence of pericardial effusion. Vessels: Mild atherosclerotic changes in the aorta and coronary arteries. Pulmonary trunk measures 35 mm in diameter. Mediastinum and radha: Unremarkable. Chest wall and lower neck: Unremarkable. Abdomen: A hiatal hernia is seen. Partial visualization of pneumobilia. Bones: Degenerative changes of the thoracic spine. Old healed rib fractures are seen. IMPRESSION: 1. No acute abnormalities and in particular no evidence of airspace opacities. 2. Interstitial fibrotic changes with pulmonary hypertension. ACT 112: Negative or not required by law. Electronically signed by: Yon Quispe M.D. 10/21/2022 3:45 PM ECG Findings: + paced rhythm Supervising Physician Co-Signing Physician Notes I have seen and examined the patient and have discussed the case with the provider above. I agree with the assessment and plan as stated. The patient is a 87-year-old female with rheumatoid arthritis presenting with increased weakness fever chills and new onset hypoxia within the last 24 hours. The patient reports pain in her wrists bilaterally and feels that she has been having a rheumatoid arthritis flare for the past week. She denies any respiratory symptoms but corroborates she has felt febrile and chilled. She denies any urinary symptoms but then states that she has more urinary urgency noted recently. It was hard to disassociate this from her Lasix tab which she takes daily. She reported the Lasix tab causes her a lot of issues with her urine. She denies any changes in her stool. We did discuss the history of pulmonary fibrosis which she was reportedly unaware of. She denies any chest pain shortness of breath neck pain, back pain or other focal symptoms outside of her joints and possibly her urine. On physical exam she is morbidly obese but in no acute distress. She appears resuscitated after initial treatment for sepsis. She is able to speak in full sentences and is not demonstrating any respiratory effort that is increased. Pulmonary auscultation reveals crackles in the lungs bilaterally consistent with pulmonary fibrosis seen on chest x-ray. There are no wheezes or rales otherwise. Cardiac exam is unremarkable and she appears euvolemic. She has no evidence of peripheral edema. She is somnolent but is able to awaken to questioning and appears oriented answering questions appropriately. No gross focal neurologic deficits but she does have generalized weakness. I did contact [facility] and spoke with her nurse who cares for her. She states that as of Wednesday evening the patient was able to transfer into bed independently and looked fine however yesterday she became more weak and reported pain in her joints and then this morning became clammy cold febrile with chills and was more weak generally. Her nurse also reports that she does not ambulate with a walker as the patient did report. Her nurse states that her baseline functional status is transferring independently. Work-up today includes a leukocytosis with a left shift of 24,000 WBCs. CBC is otherwise normal. INR is therapeutic at 2.7. Sodium is slightly low at 133 and BUN is 45 creatinine 1.75 with a baseline creatinine of around 1.7-2. Glucose is slightly elevated at 204. Lactate was initially elevated 2.2 with repeat of 1.5 after fluid resuscitation. Highly sensitive troponin was 14.2 procalcitonin was mildly elevated 0.7 urinalysis revealed evidence of leukocyte Estrace and white blood cells but also appears contaminated with greater than 30 epis. No bacteria was seen in the initial UA which was caught by clean-catch. A repeat straight cath sample was ordered. [facility] respiratory panel was negative. Chest CT revealed no evidence of pneumonia but interstitial fibrotic changes were seen with pulmonary hypertension. An EKG was performed revealing a V paced rhythm with a rate of 83. In the ER she was given approximately 2 L of fluid, Tylenol, cefepime. 1. sirs rule out sepsis, possibly 2/2 UTI 2. possible RA flare 3. hypoxia 4. pulmonary fibrosis 5. morbid obesity Agree with resuscitation efforts in the ER and continued empiric antibiotics for sepsis. There is no clear infectious cause at this time. Awaiting blood and urine cultures. Patient declined straight cath twice and each urinalysis appears contaminated. She does mention swollen/painful wrists for the past week and may be suffering from an RA flare or other cause of SIRS syndrome. There is no prior evidence in the outpatient or inpatient record reviews that reveal a history of pulmonary fibrosis or a workup for it. She has a h/o NICM and does not appear fluid overloaded at this time. ICD is in place. Ordering an echo with elevated trop and her history. Will trend CBC in am and continue monitoring for clinical improvement on current therapy. DO Max
[2022-10-21 17:33] LABS: Appearance Urine Clear (Clear); Bacteria Urine Automated Negative (Negative); Bilirubin Urine Negative (Negative); Blood Urine Negative (Negative); Cast Urine Automated 0 /lpf (0-5); Color Urine Yellow; Epithelial Cell Urine Auto >30 /lpf (0-5); Glucose Urine UA Trace (Negative); Ketones Urine Negative (Negative); Leukocyte Esterase Urine Trace (Negative); Nitrite Urine Negative (Negative); Protein Urine Negative (Negative); RBC Urine Automated 0-4 /hpf (0-4); Specific Gravity Urine 1.009 (1.000-1.030); Urobilinogen Urine Negative (Negative); pH Urine 5.5 (4.5-7.5)
[2022-10-21] MEDS ORDERED: GLUCAGON FOR INJ 1 MG VIAL SQ PRN (17:49)
[2022-10-21] MEDS ORDERED: DEXTROSE 50% 50 ML SYRINGE IV PRN (17:49)
[2022-10-21] MEDS ORDERED: HYDROCODONE/ACETAMOPHEN 5/325MG TAB PO PRN (17:49)
[2022-10-21] MEDS ORDERED: GLUCOSE 40% GEL 15 GM TUBE PO PRN (17:49)
[2022-10-21] MEDS ORDERED: POLYETHYLENE (MIRALAX) 17 GM PACK PO PRN (17:49)
[2022-10-21] MEDS ORDERED: GLUCOSE 10 TAB/TUBE PO PRN (17:49)
[2022-10-21] MEDS ORDERED: CARBOHYDRATES FOR HYPOGLYCEMIA PO PRN (17:49)
[2022-10-21 19:20] LABS: C Reactive Protein 1.72 mg/dl (0-0.5); Troponin I High Sensitivity 16.3 pg/ml (0-14)
[2022-10-21] MEDS: LANTUS PER UNIT CHARGE SQ SCH (21:24)
[2022-10-21] MEDS: INSULIN ASPART PER UNIT CHARGE SC SCH (21:30)
[2022-10-21] MEDS: VENLAFAXINE HCL XR 37.5 MG CAPXR PO SCH (21:34)
[2022-10-21] MEDS: GABAPENTIN 300 MG CAP PO SCH (21:34)
[2022-10-21] MEDS: PANTOprazole 40 MG TAB PO SCH (21:34)
--- NOTE | 2022-10-22 05:48 | Electrocardiogram Report ---
Test Reason : Blood Pressure : / mmHG Vent. Rate : 083 BPM Atrial Rate : 083 BPM P-R Int : 138 ms QRS Dur : 154 ms QT Int : 424 ms P-R-T Axes : 081 266 090 degrees QTc Int : 498 ms Atrial-sensed ventricular-paced rhythm Abnormal ECG When compared with ECG of 15-APR-2021 16:20, Premature ventricular complexes are no longer Present Vent. rate has decreased BY 5 BPM Confirmed by Nathan Gutierrez ([id number]) on 10/22/2022 5:47:49 AM Referred By: Briseida [facility] Confirmed By:Nathan Gutierrez
[2022-10-22 07:01] LABS: Hematocrit (blood only) 37.2 % (37.0-47.0); Hemoglobin 12.3 g/dl (12.0-16.0); Mean Corpuscular Hemoglobin 30.4 pg (25.0-34.0); Mean Corpuscular Hgb Conc 33.1 g/dL (32.0-36.0); Mean Corpuscular Volume 92.1 fL (80.0-100.0); Mean Platelet Volume 9.8 fL (9.4-12.4); Platelet Count 161 K/uL (130-400); RDW Coefficient of Variation 13.5 % (11.5-14.5); Red Blood Count 4.04 M/uL (4.20-5.40); White Blood Count 26.54 K/ul (4.8-10.8)
[2022-10-22 07:27] LABS: Basophils # (auto) 0.09 K/uL (0-0.2); Basophils % (auto) 0.3 %; Eosinophils # (auto) 0.02 K/uL (0-0.50); Eosinophils % (auto) 0.1 %; Immature Granulocytes # (auto) 0.22 K/uL (0.01-0.20); Immature Granulocytes % (auto) 0.8 %; Lymphocytes # (auto) 1.84 K/uL (1.2-3.4); Lymphocytes % (auto) 6.9 %; Monocytes # (auto) 0.88 K/uL (0.11-0.59); Monocytes % (auto) 3.3 %; Neutrophils # (auto) 23.49 K/uL (1.40-6.50); Neutrophils % (auto) 88.6 %
[2022-10-22 07:47] LABS: Calcium 8.3 mg/dl (8.6-10.3); Potassium 3.6 mmol/L (3.5-5.1)
[2022-10-22 07:53] LABS: BUN Creatinine Ratio 20.5 (10-20); Creatinine Clr Calc Pharmacy 23.9 ml/min; Est GFR (Non-African American) 21.6 ml/min
[2022-10-22 07:55] LABS: Estimated Average Glucose 166 mg/dl; Hemoglobin A1C 7.4 % (4.5-5.6)
[2022-10-22] MEDS: INSULIN ASPART PER UNIT CHARGE SC SCH ×4 (08:56→22:04)
[2022-10-22] MEDS: LANTUS PER UNIT CHARGE SQ SCH ×2 (08:56→22:04)
[2022-10-22] MEDS: CHOLECALCIFEROL 1,000 UNITS 25 MCG TAB PO SCH (08:57)
[2022-10-22] MEDS: ATORVASTATIN 10 MG TAB PO SCH (08:57)
[2022-10-22] MEDS: CALCITRIOL 0.25 MCG CAPSULE PO SCH (08:57)
[2022-10-22] MEDS: FOLIC ACID 1 MG TAB PO SCH (08:58)
[2022-10-22] MEDS: METOPROLOL SUCC 50MG EXT REL TAB PO SCH (08:58)
[2022-10-22] MEDS: MONTELUKAST SODIUM 10 MG TABLET PO SCH (08:58)
[2022-10-22] MEDS: GABAPENTIN 100 MG CAP PO SCH ×2 (08:58→14:07)
[2022-10-22] MEDS: PANTOprazole 40 MG TAB PO SCH ×2 (08:59→21:39)
[2022-10-22] MEDS ORDERED: SPIRONOLACTONE 25 MG TAB PO SCH (09:00)
--- NOTE | 2022-10-22 10:29 | Hospitalist Progress Note ---
Date of Service October 22, 2022 Assessment & Plan (1) Fever: Plan: Per admitting provider w/ addendum Patient is 87 y/o F with PMH nonischemic cardiomyopathy, s/p ICD, paroxysmal atrial fibrillation anticoagulated on warfarin, history of cardioversion, DM II, HTN, dyslipidemia, CKD III-IV, rheumatoid arthritis presented to ER from [facility] for fever today In ER T: 38.6C oral. WBC: 23.8 K , procalcitonin: 0.7. UA negat. Biofire resp. - negat. In ER given 1300ml NSS, cefepime Lactate: 2.2 -->1.5 Blood cultures pending CXR: No acute abnormalities and in particular no radiographic evidence of pneumonia. CT chest: No acute abnormalities and in particular no evidence of airspace opacities. Interstitial fibrotic changes with pulmonary hypertension. Denies N/V/D, abdominal pain. If would develop symptoms consider further imaging monitor CBC, CMP in a.m. Per admitting provider: 1. sirs rule out sepsis, possibly 2/2 UTI 2. possible RA flare 3. hypoxia 4. pulmonary fibrosis 5. morbid obesity There is no clear infectious cause at this time. Awaiting blood cultures. Patient declined straight cath twice and each urinalysis appears contaminated. She does mention swollen/painful wrists for the past week and may be suffering from an RA flare or other cause of SIRS syndrome. There is no prior evidence in the outpatient or inpatient record reviews that reveal a history of pulmonary fibrosis or a workup for it. She has a h/o NICM and does not appear fluid overloaded at this time. ICD is in place. Ordering an echo with elevated trop and her history. Will trend CBC in am and continue monitoring for clinical improvement on current therapy. Echo obtained EF 60 to 65%. Mild concentric LVH. Mild mitral annular calcification. Mild mitral regurg. Aortic valve sclerosis mild, without significant aortic valvular stenosis. Mild tricuspid regurg. Estimated systolic pulmonary pressure is 48 mmHg. Grade 1 diastolic dysfunction. Compared to prior study, there is no significant change. 10/22 White blood cell count continues to be elevated She is now afebrile continue cefepime, added doxycycline Continue to closely monitor, and follow blood cultures Encouraged incentive spirometry (2) Hypoxia: Plan: Noted to be hypoxic at 87% on room air at [facility]. In ER 88% on room air up to 95% on 3 L via nasal cannula Chest x-ray and CT chest scan without infiltrate. CT chest shows interstitial fibrotic changes Supplemental oxygen Incentive spirometry (3) Elevated troponin: Plan: Initial high-sensitivity troponin: 14,likely demand ischemia, secondary to above EKG paced rhythm Patient without chest pain or shortness of breath Trended troponin echo obtained - w/o any significant changes (4) Non-ischemic cardiomyopathy: (5) Chronic systolic congestive heart failure: (6) Biventricular ICD (implantable cardioverter-defibrillator) in place: Plan: S/p ICD in 2016 Echo 2020: EF: 55-60%, grade 1 diastolic dysfunction Hold Lasix and spironolactone and reevaluate tomorrow (7) Paroxysmal atrial fibrillation: Plan: Chronically anticoagulated on warfarin INR: 2.7 Continue warfarin, metoprolol succinate (8) DMII (diabetes mellitus, type 2): Plan: A1c: 7.0 on 07/23/2022 Hold home insulin Basal bolus insulin per protocol A1c 7.4% (9) Stage III chronic kidney disease: Plan: Stage III-IV Cr: 1.75. Baseline 1.7-2 (10) Rheumatoid arthritis: Plan: CRP 1.7 (elev), ESR (9 normal) DDx: RA flare DVT Prophylaxis Anticoagulated on warfarin. INR therapeutic DNR/DNI as per discussion with pt Follows with Dr Gasca at [facility] for routine care Admission and Anticipated Discharge Date Admission Date: October 21, 2022 Subjective Pt seen in follow up of fever, hypoxia Currently laying in bed, in no acute distress, on supplemental oxygen She is sleepy however opens eyes intermittently, and answers all questions appropriately Currently denies any fevers chills chest pain shortness of breath, denies any cough, denies abdominal pain nausea diarrhea Review of Systems Review of Systems: All systems reviewed & are unremarkable except as noted in Subjective Physical Exam Physical Exam: General: elderly F , obese, in NAD, laying in bed on suppl. O2 via NC Head: normocephalic, atraumatic Eyes: conjunctiva non-injected, anicteric ENT: normal inspection external ears, nose, mucous membranes moist Neck: supple Lungs: no respiratory distress on current 3L via NC with sat 95%, +rales bilateral bases, no wheezing/rhonchi CV: RRR, no murmur Abd: normal BS, soft, non-tender Ext: bilateral lower legs large but without pitting edema, no joint erythema noted Neuro: A&O x 3, normal affect, answers appropriately, speech fluent, moves extremities Skin: warm, dry Results & Data Results & Data Vital Signs (Past 12 Hours) Vital Signs Temp Pulse Resp BP BP Pulse Ox O2 Del Method 10/22/22 08:09 36.8 C 82 18 125/75 95 Nasal Cannula 10/22/22 02:39 36.8 C 80 18 120/68 94 Nasal Cannula 10/21/22 22:44 36.9 C 80 18 124/70 96 Nasal Cannula O2 Flow Rate 10/22/22 08:09 3.5 10/22/22 02:39 3 10/21/22 22:44 3 Laboratory Results 10/22/22 10/22/22 10/22/22 Range/Units 07:30 06:12 06:12 WBC (4.8-10.8) K/ul RBC (4.20-5.40) M/uL Hgb (12.0-16.0) g/dl Hct (37.0-47.0) % MCV (80.0-100.0) fL MCH (25.0-34.0) pg MCHC (32.0-36.0) g/dL RDW Std Deviation (36.4-46.3) fL RDW Coeff of Shai (11.5-14.5) % Plt Count (130-400) K/uL MPV (9.4-12.4) fL Immature Gran % (Auto) % Neut % (Auto) % Lymph % (Auto) % [place] % (Auto) % Eos % (Auto) % Baso % (Auto) % Neut # (Auto) (1.40-6.50) K/uL Lymph # (Auto) (1.2-3.4) K/uL [place] # (Auto) (0.11-0.59) K/uL Eos # (Auto) (0-0.50) K/uL Baso # (Auto) (0-0.2) K/uL Immature Gran # (Auto) (0.01-0.20) K/uL Platelet Estimate (Normal) ESR (0-30) mm/hr PT (9.0-12.0) Seconds INR (0.9-1.1) Sodium 138 (136-145) mmol/L Potassium 3.6 (3.5-5.1) mmol/L Chloride 102 (98-107) mmol/L Carbon Dioxide 29 (21-32) mmol/L Anion Gap 7 (3-11) BUN 42 H (6-23) mg/dl Creatinine 2.05 H D (0.6-1.2) mg/dl Est Cr Clr Drug Dosing 23.9 ml/min Est GFR ( Amer) 25.0 ml/min Est GFR (Non-Af Amer) 21.6 ml/min BUN/Creatinine Ratio 20.5 H (10-20) Glucose 124 H (70-99(Fasting)) mg/dl POC Glucose 132 H (70-99) mg/dl Estimat Average Glucose 166 mg/dl Hemoglobin A1c 7.4 H (4.5-5.6) % Lactate (0.4-2.0) mmol/L Calcium 8.3 L (8.6-10.3) mg/dl Total Bilirubin (0.2-1.0) mg/dl AST (13-39) U/L ALT (7-52) U/L Alkaline Phosphatase (34-104) U/L Troponin I High Sens (0-14) pg/ml C-Reactive Protein (0-0.5) mg/dl Total Protein (6.0-8.3) gm/dl Albumin (3.4-5.0) gm/dl Globulin (2.5-4.0) gm/dl Albumin/Globulin Ratio (0.9-2) Procalcitonin (0-0.5) ng/ml Urine Color Urine Appearance (Clear) Urine pH (4.5-7.5) Ur Specific [place] (1.000-1.030) Urine Protein (Negative) Urine Glucose (UA) (Negative) Urine Ketones (Negative) Urine Blood (Negative) Urine Nitrite (Negative) Urine Bilirubin (Negative) Urine Urobilinogen (Negative) Ur Leukocyte Esterase (Negative) Urine WBC (Auto) (0-5) /hpf Urine RBC (Auto) (0-4) /hpf U Hyaline Cast (Auto) (0-5) /lpf U Epithel Cells (Auto) (0-5) /lpf Urine Bacteria (Auto) (Negative) Adenovirus (PCR) (NotDetected) B. pertussis DNA (PCR) (NotDetected) B.parapertussis DNA PCR (NotDetected) C. pneumoniae DNA (PCR) (NotDetected) Coronavirus OC43 (PCR) (NotDetected) Coronavirus HKU1 (PCR) (NotDetected) Coronavirus 229E (PCR) (NotDetected) SARS-CoV-2 (PCR) (NotDetected) Coronavirus NL63 (PCR) (NotDetected) Human Metapneumovir PCR (NotDetected) Influenza Type A (PCR) (NotDetected) Influenza Type B (PCR) (NotDetected) M. pneumoniae (PCR) (NotDetected) Parainfluenza 1 (PCR) (NotDetected) Parainfluenza 2 (PCR) (NotDetected) Parainfluenza 3 (PCR) (NotDetected) Parainfluenza 4 (PCR) (NotDetected) RSV (PCR) (NotDetected) Entero/Rhino (PCR) (NotDetected) 10/22/22 10/22/22 10/22/22 Range/Units 06:12 06:12 00:36 WBC 26.54 H (4.8-10.8) K/ul RBC 4.04 L (4.20-5.40) M/uL Hgb 12.3 (12.0-16.0) g/dl Hct 37.2 (37.0-47.0) % MCV 92.1 (80.0-100.0) fL MCH 30.4 (25.0-34.0) pg MCHC 33.1 (32.0-36.0) g/dL RDW Std Deviation 46.0 (36.4-46.3) fL RDW Coeff of Shai 13.5 (11.5-14.5) % Plt Count 161 (130-400) K/uL MPV 9.8 (9.4-12.4) fL Immature Gran % (Auto) 0.8 % Neut % (Auto) 88.6 % Lymph % (Auto) 6.9 % [place] % (Auto) 3.3 % Eos % (Auto) 0.1 % Baso % (Auto) 0.3 % Neut # (Auto) 23.49 H (1.40-6.50) K/uL Lymph # (Auto) 1.84 (1.2-3.4) K/uL [place] # (Auto) 0.88 H (0.11-0.59) K/uL Eos # (Auto) 0.02 (0-0.50) K/uL Baso # (Auto) 0.09 (0-0.2) K/uL Immature Gran # (Auto) 0.22 H (0.01-0.20) K/uL Platelet Estimate (Normal) ESR (0-30) mm/hr PT (9.0-12.0) Seconds INR (0.9-1.1) Sodium (136-145) mmol/L Potassium (3.5-5.1) mmol/L Chloride (98-107) mmol/L Carbon Dioxide (21-32) mmol/L Anion Gap (3-11) BUN (6-23) mg/dl Creatinine (0.6-1.2) mg/dl Est Cr Clr Drug Dosing ml/min Est GFR ( Amer) ml/min Est GFR (Non-Af Amer) ml/min BUN/Creatinine Ratio (10-20) Glucose (70-99(Fasting)) mg/dl POC Glucose (70-99) mg/dl Estimat Average Glucose mg/dl Hemoglobin A1c (4.5-5.6) % Lactate (0.4-2.0) mmol/L Calcium (8.6-10.3) mg/dl Total Bilirubin (0.2-1.0) mg/dl AST (13-39) U/L ALT (7-52) U/L Alkaline Phosphatase (34-104) U/L Troponin I High Sens 13.5 14.9 H (0-14) pg/ml C-Reactive Protein (0-0.5) mg/dl Total Protein (6.0-8.3) gm/dl Albumin (3.4-5.0) gm/dl Globulin (2.5-4.0) gm/dl Albumin/Globulin Ratio (0.9-2) Procalcitonin (0-0.5) ng/ml Urine Color Urine Appearance (Clear) Urine pH (4.5-7.5) Ur Specific [place] (1.000-1.030) Urine Protein (Negative) Urine Glucose (UA) (Negative) Urine Ketones (Negative) Urine Blood (Negative) Urine Nitrite (Negative) Urine Bilirubin (Negative) Urine Urobilinogen (Negative) Ur Leukocyte Esterase (Negative) Urine WBC (Auto) (0-5) /hpf Urine RBC (Auto) (0-4) /hpf U Hyaline Cast (Auto) (0-5) /lpf U Epithel Cells (Auto) (0-5) /lpf Urine Bacteria (Auto) (Negative) Adenovirus (PCR) (NotDetected) B. pertussis DNA (PCR) (NotDetected) B.parapertussis DNA PCR (NotDetected) C. pneumoniae DNA (PCR) (NotDetected) Coronavirus OC43 (PCR) (NotDetected) Coronavirus HKU1 (PCR) (NotDetected) Coronavirus 229E (PCR) (NotDetected) SARS-CoV-2 (PCR) (NotDetected) Coronavirus NL63 (PCR) (NotDetected) Human Metapneumovir PCR (NotDetected) Influenza Type A (PCR) (NotDetected) Influenza Type B (PCR) (NotDetected) M. pneumoniae (PCR) (NotDetected) Parainfluenza 1 (PCR) (NotDetected) Parainfluenza 2 (PCR) (NotDetected) Parainfluenza 3 (PCR) (NotDetected) Parainfluenza 4 (PCR) (NotDetected) RSV (PCR) (NotDetected) Entero/Rhino (PCR) (NotDetected) 10/21/22 10/21/22 10/21/22 Range/Units Unknown 21:21 18:27 WBC (4.8-10.8) K/ul RBC (4.20-5.40) M/uL Hgb (12.0-16.0) g/dl Hct (37.0-47.0) % MCV (80.0-100.0) fL MCH (25.0-34.0) pg MCHC (32.0-36.0) g/dL RDW Std Deviation (36.4-46.3) fL RDW Coeff of Shai (11.5-14.5) % Plt Count (130-400) K/uL MPV (9.4-12.4) fL Immature Gran % (Auto) % Neut % (Auto) % Lymph % (Auto) % [place] % (Auto) % Eos % (Auto) % Baso % (Auto) % Neut # (Auto) (1.40-6.50) K/uL Lymph # (Auto) (1.2-3.4) K/uL [place] # (Auto) (0.11-0.59) K/uL Eos # (Auto) (0-0.50) K/uL Baso # (Auto) (0-0.2) K/uL Immature Gran # (Auto) (0.01-0.20) K/uL Platelet Estimate (Normal) ESR (0-30) mm/hr PT (9.0-12.0) Seconds INR (0.9-1.1) Sodium (136-145) mmol/L Potassium (3.5-5.1) mmol/L Chloride (98-107) mmol/L Carbon Dioxide (21-32) mmol/L Anion Gap (3-11) BUN (6-23) mg/dl Creatinine (0.6-1.2) mg/dl Est Cr Clr Drug Dosing ml/min Est GFR ( Amer) ml/min Est GFR (Non-Af Amer) ml/min BUN/Creatinine Ratio (10-20) Glucose (70-99(Fasting)) mg/dl POC Glucose 164 H (70-99) mg/dl Estimat Average Glucose mg/dl Hemoglobin A1c (4.5-5.6) % Lactate (0.4-2.0) mmol/L Calcium (8.6-10.3) mg/dl Total Bilirubin (0.2-1.0) mg/dl AST (13-39) U/L ALT (7-52) U/L Alkaline Phosphatase (34-104) U/L Troponin I High Sens 16.3 H (0-14) pg/ml C-Reactive Protein 1.72 H (0-0.5) mg/dl Total Protein (6.0-8.3) gm/dl Albumin (3.4-5.0) gm/dl Globulin (2.5-4.0) gm/dl Albumin/Globulin Ratio (0.9-2) Procalcitonin (0-0.5) ng/ml Urine Color Urine Appearance (Clear) Urine pH (4.5-7.5) Ur Specific [place] (1.000-1.030) Urine Protein (Negative) Urine Glucose (UA) (Negative) Urine Ketones (Negative) Urine Blood (Negative) Urine Nitrite (Negative) Urine Bilirubin (Negative) Urine Urobilinogen (Negative) Ur Leukocyte Esterase (Negative) Urine WBC (Auto) (0-5) /hpf Urine RBC (Auto) (0-4) /hpf U Hyaline Cast (Auto) (0-5) /lpf U Epithel Cells (Auto) (0-5) /lpf Urine Bacteria (Auto) (Negative) Adenovirus (PCR) Not Detected (NotDetected) B. pertussis DNA (PCR) Not Detected (NotDetected) B.parapertussis DNA PCR Not Detected (NotDetected) C. pneumoniae DNA (PCR) Not Detected (NotDetected) Coronavirus OC43 (PCR) Not Detected (NotDetected) Coronavirus HKU1 (PCR) Not Detected (NotDetected) Coronavirus 229E (PCR) Not Detected (NotDetected) SARS-CoV-2 (PCR) Not Detected (NotDetected) Coronavirus NL63 (PCR) Not Detected (NotDetected) Human Metapneumovir PCR Not Detected (NotDetected) Influenza Type A (PCR) Not Detected (NotDetected) Influenza Type B (PCR) Not Detected (NotDetected) M. pneumoniae (PCR) Not Detected (NotDetected) Parainfluenza 1 (PCR) Not Detected (NotDetected) Parainfluenza 2 (PCR) Not Detected (NotDetected) Parainfluenza 3 (PCR) Not Detected (NotDetected) Parainfluenza 4 (PCR) Not Detected (NotDetected) RSV (PCR) Not Detected (NotDetected) Entero/Rhino (PCR) Not Detected (NotDetected) 10/21/22 10/21/22 10/21/22 Range/Units 18:27 17:10 16:20 WBC (4.8-10.8) K/ul RBC (4.20-5.40) M/uL Hgb (12.0-16.0) g/dl Hct (37.0-47.0) % MCV (80.0-100.0) fL MCH (25.0-34.0) pg MCHC (32.0-36.0) g/dL RDW Std Deviation (36.4-46.3) fL RDW Coeff of Shai (11.5-14.5) % Plt Count (130-400) K/uL MPV (9.4-12.4) fL Immature Gran % (Auto) % Neut % (Auto) % Lymph % (Auto) % [place] % (Auto) % Eos % (Auto) % Baso % (Auto) % Neut # (Auto) (1.40-6.50) K/uL Lymph # (Auto) (1.2-3.4) K/uL [place] # (Auto) (0.11-0.59) K/uL Eos # (Auto) (0-0.50) K/uL Baso # (Auto) (0-0.2) K/uL Immature Gran # (Auto) (0.01-0.20) K/uL Platelet Estimate (Normal) ESR 9 (0-30) mm/hr PT (9.0-12.0) Seconds INR (0.9-1.1) Sodium (136-145) mmol/L Potassium (3.5-5.1) mmol/L Chloride (98-107) mmol/L Carbon Dioxide (21-32) mmol/L Anion Gap (3-11) BUN (6-23) mg/dl Creatinine (0.6-1.2) mg/dl Est Cr Clr Drug Dosing ml/min Est GFR ( Amer) ml/min Est GFR (Non-Af Amer) ml/min BUN/Creatinine Ratio (10-20) Glucose (70-99(Fasting)) mg/dl POC Glucose (70-99) mg/dl Estimat Average Glucose mg/dl Hemoglobin A1c (4.5-5.6) % Lactate 1.5 (0.4-2.0) mmol/L Calcium (8.6-10.3) mg/dl Total Bilirubin (0.2-1.0) mg/dl AST (13-39) U/L ALT (7-52) U/L Alkaline Phosphatase (34-104) U/L Troponin I High Sens (0-14) pg/ml C-Reactive Protein (0-0.5) mg/dl Total Protein (6.0-8.3) gm/dl Albumin (3.4-5.0) gm/dl Globulin (2.5-4.0) gm/dl Albumin/Globulin Ratio (0.9-2) Procalcitonin (0-0.5) ng/ml Urine Color Yellow Urine Appearance Clear (Clear) Urine pH 5.5 (4.5-7.5) Ur Specific [place] 1.009 (1.000-1.030) Urine Protein Negative (Negative) Urine Glucose (UA) Trace H (Negative) Urine Ketones Negative (Negative) Urine Blood Negative (Negative) Urine Nitrite Negative (Negative) Urine Bilirubin Negative (Negative) Urine Urobilinogen Negative (Negative) Ur Leukocyte Esterase Trace H (Negative) Urine WBC (Auto) 5-10 H (0-5) /hpf Urine RBC (Auto) 0-4 (0-4) /hpf U Hyaline Cast (Auto) 0 (0-5) /lpf U Epithel Cells (Auto) >30 H (0-5) /lpf Urine Bacteria (Auto) Negative (Negative) Adenovirus (PCR) (NotDetected) B. pertussis DNA (PCR) (NotDetected) B.parapertussis DNA PCR (NotDetected) C. pneumoniae DNA (PCR) (NotDetected) Coronavirus OC43 (PCR) (NotDetected) Coronavirus HKU1 (PCR) (NotDetected) Coronavirus 229E (PCR) (NotDetected) SARS-CoV-2 (PCR) (NotDetected) Coronavirus NL63 (PCR) (NotDetected) Human Metapneumovir PCR (NotDetected) Influenza Type A (PCR) (NotDetected) Influenza Type B (PCR) (NotDetected) M. pneumoniae (PCR) (NotDetected) Parainfluenza 1 (PCR) (NotDetected) Parainfluenza 2 (PCR) (NotDetected) Parainfluenza 3 (PCR) (NotDetected) Parainfluenza 4 (PCR) (NotDetected) RSV (PCR) (NotDetected) Entero/Rhino (PCR) (NotDetected) 10/21/22 10/21/22 10/21/22 Range/Units 14:50 14:21 14:21 WBC (4.8-10.8) K/ul RBC (4.20-5.40) M/uL Hgb (12.0-16.0) g/dl Hct (37.0-47.0) % MCV (80.0-100.0) fL MCH (25.0-34.0) pg MCHC (32.0-36.0) g/dL RDW Std Deviation (36.4-46.3) fL RDW Coeff of Shai (11.5-14.5) % Plt Count (130-400) K/uL MPV (9.4-12.4) fL Immature Gran % (Auto) % Neut % (Auto) % Lymph % (Auto) % [place] % (Auto) % Eos % (Auto) % Baso % (Auto) % Neut # (Auto) (1.40-6.50) K/uL Lymph # (Auto) (1.2-3.4) K/uL [place] # (Auto) (0.11-0.59) K/uL Eos # (Auto) (0-0.50) K/uL Baso # (Auto) (0-0.2) K/uL Immature Gran # (Auto) (0.01-0.20) K/uL Platelet Estimate (Normal) ESR (0-30) mm/hr PT (9.0-12.0) Seconds INR (0.9-1.1) Sodium (136-145) mmol/L Potassium (3.5-5.1) mmol/L Chloride (98-107) mmol/L Carbon Dioxide (21-32) mmol/L Anion Gap (3-11) BUN (6-23) mg/dl Creatinine (0.6-1.2) mg/dl Est Cr Clr Drug Dosing ml/min Est GFR ( Amer) ml/min Est GFR (Non-Af Amer) ml/min BUN/Creatinine Ratio (10-20) Glucose (70-99(Fasting)) mg/dl POC Glucose (70-99) mg/dl Estimat Average Glucose mg/dl Hemoglobin A1c (4.5-5.6) % Lactate 2.2 H* (0.4-2.0) mmol/L Calcium (8.6-10.3) mg/dl Total Bilirubin (0.2-1.0) mg/dl AST (13-39) U/L ALT (7-52) U/L Alkaline Phosphatase (34-104) U/L Troponin I High Sens (0-14) pg/ml C-Reactive Protein (0-0.5) mg/dl Total Protein (6.0-8.3) gm/dl Albumin (3.4-5.0) gm/dl Globulin (2.5-4.0) gm/dl Albumin/Globulin Ratio (0.9-2) Procalcitonin 0.70 H (0-0.5) ng/ml Urine Color Yellow Urine Appearance Clear (Clear) Urine pH 6.0 (4.5-7.5) Ur Specific [place] 1.009 (1.000-1.030) Urine Protein Negative (Negative) Urine Glucose (UA) Trace H (Negative) Urine Ketones Negative (Negative) Urine Blood Negative (Negative) Urine Nitrite Negative (Negative) Urine Bilirubin Negative (Negative) Urine Urobilinogen Negative (Negative) Ur Leukocyte Esterase 2+ H (Negative) Urine WBC (Auto) >30 H (0-5) /hpf Urine RBC (Auto) 0-4 (0-4) /hpf U Hyaline Cast (Auto) 1-5 (0-5) /lpf U Epithel Cells (Auto) >30 H (0-5) /lpf Urine Bacteria (Auto) Negative (Negative) Adenovirus (PCR) (NotDetected) B. pertussis DNA (PCR) (NotDetected) B.parapertussis DNA PCR (NotDetected) C. pneumoniae DNA (PCR) (NotDetected) Coronavirus OC43 (PCR) (NotDetected) Coronavirus HKU1 (PCR) (NotDetected) Coronavirus 229E (PCR) (NotDetected) SARS-CoV-2 (PCR) (NotDetected) Coronavirus NL63 (PCR) (NotDetected) Human Metapneumovir PCR (NotDetected) Influenza Type A (PCR) (NotDetected) Influenza Type B (PCR) (NotDetected) M. pneumoniae (PCR) (NotDetected) Parainfluenza 1 (PCR) (NotDetected) Parainfluenza 2 (PCR) (NotDetected) Parainfluenza 3 (PCR) (NotDetected) Parainfluenza 4 (PCR) (NotDetected) RSV (PCR) (NotDetected) Entero/Rhino (PCR) (NotDetected) 10/21/22 10/21/22 10/21/22 Range/Units 14:21 14:21 14:21 WBC 23.89 H (4.8-10.8) K/ul RBC 4.33 (4.20-5.40) M/uL Hgb 13.2 (12.0-16.0) g/dl Hct 39.5 (37.0-47.0) % MCV 91.2 (80.0-100.0) fL MCH 30.5 (25.0-34.0) pg MCHC 33.4 (32.0-36.0) g/dL RDW Std Deviation 44.6 (36.4-46.3) fL RDW Coeff of Shai 13.2 (11.5-14.5) % Plt Count 175 (130-400) K/uL MPV 9.7 (9.4-12.4) fL Immature Gran % (Auto) 0.8 % Neut % (Auto) 89.7 % Lymph % (Auto) 4.3 % [place] % (Auto) 4.8 % Eos % (Auto) 0.1 % Baso % (Auto) 0.3 % Neut # (Auto) 21.43 H (1.40-6.50) K/uL Lymph # (Auto) 1.02 L (1.2-3.4) K/uL [place] # (Auto) 1.14 H (0.11-0.59) K/uL Eos # (Auto) 0.02 (0-0.50) K/uL Baso # (Auto) 0.08 (0-0.2) K/uL Immature Gran # (Auto) 0.20 (0.01-0.20) K/uL Platelet Estimate Normal (Normal) ESR (0-30) mm/hr PT 27.7 H (9.0-12.0) Seconds INR 2.7 H (0.9-1.1) Sodium 133 L (136-145) mmol/L Potassium 3.7 (3.5-5.1) mmol/L Chloride 96 L (98-107) mmol/L Carbon Dioxide 27 (21-32) mmol/L Anion Gap 10 (3-11) BUN 45 H (6-23) mg/dl Creatinine 1.75 H (0.6-1.2) mg/dl Est Cr Clr Drug Dosing 28.6 ml/min Est GFR ( Amer) 30.2 ml/min Est GFR (Non-Af Amer) 26.1 ml/min BUN/Creatinine Ratio 25.7 H (10-20) Glucose 204 H (70-99(Fasting)) mg/dl POC Glucose (70-99) mg/dl Estimat Average Glucose mg/dl Hemoglobin A1c (4.5-5.6) % Lactate (0.4-2.0) mmol/L Calcium 9.3 (8.6-10.3) mg/dl Total Bilirubin 0.7 (0.2-1.0) mg/dl AST 20 (13-39) U/L ALT 15 (7-52) U/L Alkaline Phosphatase 73 (34-104) U/L Troponin I High Sens 14.2 H (0-14) pg/ml C-Reactive Protein (0-0.5) mg/dl Total Protein 6.4 (6.0-8.3) gm/dl Albumin 3.6 (3.4-5.0) gm/dl Globulin 2.8 (2.5-4.0) gm/dl Albumin/Globulin Ratio 1.3 (0.9-2) Procalcitonin (0-0.5) ng/ml Urine Color Urine Appearance (Clear) Urine pH (4.5-7.5) Ur Specific [place] (1.000-1.030) Urine Protein (Negative) Urine Glucose (UA) (Negative) Urine Ketones (Negative) Urine Blood (Negative) Urine Nitrite (Negative) Urine Bilirubin (Negative) Urine Urobilinogen (Negative) Ur Leukocyte Esterase (Negative) Urine WBC (Auto) (0-5) /hpf Urine RBC (Auto) (0-4) /hpf U Hyaline Cast (Auto) (0-5) /lpf U Epithel Cells (Auto) (0-5) /lpf Urine Bacteria (Auto) (Negative) Adenovirus (PCR) (NotDetected) B. pertussis DNA (PCR) (NotDetected) B.parapertussis DNA PCR (NotDetected) C. pneumoniae DNA (PCR) (NotDetected) Coronavirus OC43 (PCR) (NotDetected) Coronavirus HKU1 (PCR) (NotDetected) Coronavirus 229E (PCR) (NotDetected) SARS-CoV-2 (PCR) (NotDetected) Coronavirus NL63 (PCR) (NotDetected) Human Metapneumovir PCR (NotDetected) Influenza Type A (PCR) (NotDetected) Influenza Type B (PCR) (NotDetected) M. pneumoniae (PCR) (NotDetected) Parainfluenza 1 (PCR) (NotDetected) Parainfluenza 2 (PCR) (NotDetected) Parainfluenza 3 (PCR) (NotDetected) Parainfluenza 4 (PCR) (NotDetected) RSV (PCR) (NotDetected) Entero/Rhino (PCR) (NotDetected) Medications Administered Current Inpatient Medications Acetaminophen (Acetaminophen 325 Mg Tab) 650 mg PO Q4H PRN PRN Reason: Pain or Fever Stop: 11/20/22 17:48 Hydrocodone Bitart/Acetaminophen (Hydrocodone/Acetamophen 5/325mg Tab) 1 tab PO Q4 PRN PRN Reason: Severe Pain (Scale Score 7-10) Stop: 11/04/22 17:48 Atorvastatin Calcium (Atorvastatin 10 Mg Tab) 10 mg PO DAILY [facility] Stop: 11/21/22 08:59 Last Admin: 10/22/22 08:57 Dose: 10 mg Buspirone HCl (Buspirone 5 Mg Tab) 5 mg PO BID PRN PRN Reason: anxiety Stop: 11/20/22 17:48 Calcitriol (Calcitriol 0.25 Mcg Capsule) 0.25 mcg PO DAILY [facility] Stop: 11/21/22 08:59 Last Admin: 10/22/22 08:57 Dose: 0.25 mcg Dextrose (Dextrose 50% 50 Ml Syringe) 25 - 50 ml IV UD PRN; Protocol PRN Reason: Hypoglycemia Protocol Stop: 11/20/22 17:48 Folic Acid (Folic Acid 1 Mg Tab) 2 mg PO DAILY [facility] Stop: 11/21/22 08:59 Last Admin: 10/22/22 08:58 Dose: 2 mg Gabapentin (Gabapentin 300 Mg Cap) 300 mg PO HS [facility] Stop: 11/20/22 20:59 Last Admin: 10/21/22 21:34 Dose: 300 mg Gabapentin (Gabapentin 100 Mg Cap) 100 mg PO BID@0900,1400 [facility] Stop: 11/21/22 08:59 Last Admin: 10/22/22 08:58 Dose: 100 mg Glucagon (Glucagon For Inj 1 Mg Vial) 1 mg SQ UD PRN; Protocol PRN Reason: Hypoglycemia Protocol Stop: 11/20/22 17:48 Glucose (Glucose 10 Tab/Tube) 4 - 8 tab PO UD PRN; Protocol PRN Reason: Hypoglycemia Treatment Stop: 11/20/22 17:48 Glucose (Glucose 40% Gel 15 Gm Tube) 15 - 30 gm PO UD PRN; Protocol PRN Reason: Hypoglycemia Protocol Stop: 11/20/22 17:48 Cefepime HCl 2,000 mg/ Syringe 20 mls @ 5 mls/min IV Q24H [facility]; Protocol Stop: 10/24/22 11:59 Doxycycline Hyclate 100 mg/ (Dextrose) 110 mls @ 50 mls/hr IV Q12H [facility] Stop: 10/24/22 09:59 Insulin Aspart (Insulin Aspart Per Unit Charge) 0 units SC ACHS [facility] Stop: 11/20/22 20:59 Last Admin: 10/22/22 08:56 Dose: 5 units Insulin Glargine (Lantus Per Unit Charge) 13 units SQ BID [facility] Stop: 11/20/22 20:59 Last Admin: 10/22/22 08:56 Dose: 13 units Metoprolol Succinate (Metoprolol Succ 50mg Ext Rel Tab) 200 mg PO DAILY [facility] Stop: 11/21/22 08:59 Last Admin: 10/22/22 08:58 Dose: 200 mg Miscellaneous (Carbohydrates For Hypoglycemia ) 15 - 30 gm PO UD PRN PRN Reason: Hypoglycemia Protocol Stop: 11/20/22 17:48 Montelukast Sodium (Montelukast Sodium 10 Mg Tablet) 10 mg PO DAILY [facility] Stop: 11/21/22 08:59 Last Admin: 10/22/22 08:58 Dose: 10 mg Pantoprazole Sodium (Pantoprazole 40 Mg Tab) 40 mg PO BID [facility] Stop: 11/20/22 20:59 Last Admin: 10/22/22 08:59 Dose: 40 mg Polyethylene Glycol (Polyethylene (Miralax) 17 Gm Pack) 17 gm PO DAILY PRN PRN Reason: Constipation Stop: 11/20/22 17:48 Venlafaxine HCl (Venlafaxine Hcl Xr 37.5 Mg Capxr) 37.5 mg PO HS [facility] Stop: 11/20/22 20:59 Last Admin: 10/21/22 21:34 Dose: 37.5 mg Vitamin D (Cholecalciferol 1,000 Units 25 Mcg Tab) 2,000 units PO QAM [facility] Stop: 11/21/22 08:59 Last Admin: 10/22/22 08:57 Dose: 2,000 units Warfarin Sodium (Warfarin Sod 4 Mg Tab) 4 mg PO DAILY@1600 [facility] Stop: 11/21/22 15:59
[2022-10-22 11:41] LABS: Lyme Ab IgG w/WB Rflx Negative (Negative); Lyme Ab IgM w/WB Rflx Negative (Negative)
[2022-10-22] MEDS: CEFEPIME 2,000 MG in SYRINGE 0 ML IV SCH (12:13)
[2022-10-22] MEDS: DOXYCYCLINE HYCLATE 100 MG in DEXTROSE 5% 100 ML IV SCH ×2 (14:06→21:59)
[2022-10-22] MEDS: WARFARIN SOD 4 MG TAB PO SCH (16:53)
[2022-10-22] MEDS: GABAPENTIN 300 MG CAP PO SCH (21:39)
[2022-10-22] MEDS: VENLAFAXINE HCL XR 37.5 MG CAPXR PO SCH (21:39)
[2022-10-22] MEDS: busPIRone 5 MG TAB PO PRN (21:59)
--- NOTE | 2022-10-23 05:28 | Electrocardiogram Report ---
Test Reason : Blood Pressure : / mmHG Vent. Rate : 083 BPM Atrial Rate : 083 BPM P-R Int : 122 ms QRS Dur : 176 ms QT Int : 454 ms P-R-T Axes : 065 -89 093 degrees QTc Int : 533 ms Atrial-sensed ventricular-paced rhythm with AV dual-paced complexes Biventricular pacemaker detected Abnormal ECG When compared with ECG of 21-OCT-2022 12:36, No significant change was found Confirmed by Nathan Gutierrez ([id number]) on 10/23/2022 5:28:24 AM Referred By: Briseida [employer] Confirmed By:Nathan Gutierrez
[2022-10-23] MEDS: INSULIN ASPART PER UNIT CHARGE SC SCH ×4 (08:25→20:52)
[2022-10-23] MEDS: LANTUS PER UNIT CHARGE SQ SCH ×2 (08:26→20:52)
[2022-10-23] MEDS: ATORVASTATIN 10 MG TAB PO SCH (08:29)
[2022-10-23] MEDS: FOLIC ACID 1 MG TAB PO SCH (08:29)
[2022-10-23] MEDS: CALCITRIOL 0.25 MCG CAPSULE PO SCH (08:29)
[2022-10-23] MEDS: CHOLECALCIFEROL 1,000 UNITS 25 MCG TAB PO SCH (08:29)
[2022-10-23] MEDS: GABAPENTIN 100 MG CAP PO SCH ×2 (08:29→15:28)
[2022-10-23] MEDS: PANTOprazole 40 MG TAB PO SCH ×2 (08:30→20:54)
[2022-10-23] MEDS: METOPROLOL SUCC 50MG EXT REL TAB PO SCH (08:30)
[2022-10-23] MEDS: MONTELUKAST SODIUM 10 MG TABLET PO SCH (08:30)
--- NOTE | 2022-10-23 08:34 | Hospitalist Progress Note ---
Date of Service October 23, 2022 Assessment & Plan (1) Fever: Plan: Per admitting provider w/ addendum Patient is 87 y/o F with PMH nonischemic cardiomyopathy, s/p ICD, paroxysmal atrial fibrillation anticoagulated on warfarin, history of cardioversion, DM II, HTN, dyslipidemia, CKD III-IV, rheumatoid arthritis presented to ER from [facility] for fever today In ER T: 38.6C oral. WBC: 23.8 K , procalcitonin: 0.7. UA negat. Biofire resp. - negat. In ER given 1300ml NSS, cefepime Lactate: 2.2 -->1.5 Blood cultures negat. in 48 hrs CXR: No acute abnormalities and in particular no radiographic evidence of pneumonia. CT chest: No acute abnormalities and in particular no evidence of airspace opacities. Interstitial fibrotic changes with pulmonary hypertension. Denies N/V/D, abdominal pain. monitor CBC, CMP in a.m. Per admitting provider: 1. sirs rule out sepsis, possibly 2/2 UTI 2. possible RA flare 3. hypoxia 4. pulmonary fibrosis 5. morbid obesity There is no clear infectious cause at this time. Awaiting blood cultures. She does mention swollen/painful wrists for the past week and may be suffering from an RA flare or other cause of SIRS syndrome. There is no prior evidence in the outpatient or inpatient record reviews that reveal a history of pulmonary fibrosis or a workup for it. She has a h/o NICM and does not appear fluid overloaded at this time. ICD is in place. Echo obtained with elevated trop and her history. Will trend CBC in am and continue monitoring for clinical improvement on current therapy. Echo obtained EF 60 to 65%. Mild concentric LVH. Mild mitral annular calcification. Mild mitral regurg. Aortic valve sclerosis mild, without significant aortic valvular stenosis. Mild tricuspid regurg. Estimated systolic pulmonary pressure is 48 mmHg. Grade 1 diastolic dysfunction. Compared to prior study, there is no significant change. 10/22 White blood cell count continues to be elevated She is now afebrile continue cefepime, added doxycycline Continue to closely monitor, and follow blood cultures Encouraged incentive spirometry 10/23 Pt clinically much improved. She is currently on RA saturating 96%, afebrile, feeling well overall. WBC elevated but improved. (2) Hypoxia: Plan: Noted to be hypoxic at 87% on room air at [facility]. In ER 88% on room air up to 95% on 3 L via nasal cannula Chest x-ray and CT chest scan without infiltrate. CT chest shows interstitial fibrotic changes Supplemental oxygen Incentive spirometry 10/23 Resolved - Currently on RA and saturating 96% (3) Elevated troponin: Plan: Initial high-sensitivity troponin: 14,likely demand ischemia, secondary to above EKG paced rhythm Patient without chest pain or shortness of breath Trended troponin echo obtained - w/o any significant changes (4) Non-ischemic cardiomyopathy: (5) Chronic systolic congestive heart failure: (6) Biventricular ICD (implantable cardioverter-defibrillator) in place: Plan: S/p ICD in 2015 Echo 2020: EF: 55-60%, grade 1 diastolic dysfunction Hold Lasix and spironolactone and reevaluate tomorrow (7) Paroxysmal atrial fibrillation: Plan: Chronically anticoagulated on warfarin INR: 2.7 Continue warfarin, metoprolol succinate (8) DMII (diabetes mellitus, type 2): Plan: A1c: 7.0 on 07/23/2022 Hold home insulin Basal bolus insulin per protocol A1c 7.4% (9) Stage III chronic kidney disease: Plan: Stage III-IV Cr: 1.75. Baseline 1.7-2 (10) Rheumatoid arthritis: Plan: CRP 1.7 (elev), ESR (9 normal) DDx: RA flare DVT Prophylaxis Anticoagulated on warfarin. INR therapeutic DNR/DNI as per discussion with pt Follows with Dr Gasca at [facility] for routine care Admission and Anticipated Discharge Date Admission Date: October 21, 2022 Subjective Pt seen in follow up of fever, hypoxia Currently sitting up in bed, in no acute distress, awake alert, feeling well Breathing on RA (saturating 96%) Currently denies any fevers chills chest pain shortness of breath, denies any cough, denies abdominal pain nausea diarrhea Pt' s daughter updated over the phone at the bedside. Review of Systems Review of Systems: All systems reviewed & are unremarkable except as noted in Subjective Physical Exam Physical Exam: General: elderly F , obese, in NAD, on RA Head: normocephalic, atraumatic Eyes: conjunctiva non-injected, anicteric ENT: normal inspection external ears, nose, mucous membranes moist Neck: supple Lungs: no respiratory distress, CTAB, no wheezing/rhonchi CV: RRR, no murmur Abd: normal BS, soft, non-tender Ext: bilateral lower legs large but without pitting edema, no joint erythema noted Neuro: A&O x 3, normal affect, answers appropriately, speech fluent, moves extremities Skin: warm, dry Results & Data Results & Data Vital Signs (Past 12 Hours) Vital Signs Temp Pulse Pulse Resp BP Pulse Ox O2 Del Method 10/23/22 07:46 36.6 C 80 20 148/81 H 95 Nasal Cannula 10/23/22 05:29 36.6 C 79 18 152/74 H 94 Nasal Cannula 10/22/22 22:00 62 10/22/22 22:47 36.7 C 91 H 18 119/68 95 Nasal Cannula O2 Flow Rate 10/23/22 07:46 1 10/23/22 05:29 1 10/22/22 22:00 10/22/22 22:47 1 Laboratory Results 10/23/22 10/23/22 10/23/22 Range/Units 07:49 07:49 07:49 WBC Pending RBC Pending Hgb Pending Hct Pending MCV Pending MCH Pending MCHC Pending Plt Count Pending PT Pending INR Pending Sodium Pending Potassium Pending Chloride Pending Carbon Dioxide Pending Anion Gap Pending BUN Pending Creatinine Pending Est Cr Clr Drug Dosing Pending Est GFR ( Amer) Pending Est GFR (Non-Af Amer) Pending BUN/Creatinine Ratio Pending Glucose Pending POC Glucose (70-99) mg/dl Calcium Pending Phosphorus Pending Magnesium Pending Lyme Disease IgG Ab (Negative) Lyme Disease IgM Ab (Negative) 10/23/22 10/22/22 10/22/22 Range/Units 07:28 20:10 16:16 WBC RBC Hgb Hct MCV MCH MCHC Plt Count PT INR Sodium Potassium Chloride Carbon Dioxide Anion Gap BUN Creatinine Est Cr Clr Drug Dosing Est GFR ( Amer) Est GFR (Non-Af Amer) BUN/Creatinine Ratio Glucose POC Glucose 125 H 193 H 79 (70-99) mg/dl Calcium Phosphorus Magnesium Lyme Disease IgG Ab (Negative) Lyme Disease IgM Ab (Negative) 10/22/22 10/21/22 Range/Units 11:29 14:21 WBC RBC Hgb Hct MCV MCH MCHC Plt Count PT INR Sodium Potassium Chloride Carbon Dioxide Anion Gap BUN Creatinine Est Cr Clr Drug Dosing Est GFR ( Amer) Est GFR (Non-Af Amer) BUN/Creatinine Ratio Glucose POC Glucose 270 H (70-99) mg/dl Calcium Phosphorus Magnesium Lyme Disease IgG Ab Negative (Negative) Lyme Disease IgM Ab Negative (Negative) Medications Administered Current Inpatient Medications Acetaminophen (Acetaminophen 325 Mg Tab) 650 mg PO Q4H PRN PRN Reason: Pain or Fever Stop: 11/20/22 17:48 Hydrocodone Bitart/Acetaminophen (Hydrocodone/Acetamophen 5/325mg Tab) 1 tab PO Q4 PRN PRN Reason: Severe Pain (Scale Score 7-10) Stop: 11/04/22 17:48 Atorvastatin Calcium (Atorvastatin 10 Mg Tab) 10 mg PO DAILY [facility] Stop: 11/21/22 08:59 Last Admin: 10/23/22 08:29 Dose: 10 mg Buspirone HCl (Buspirone 5 Mg Tab) 5 mg PO BID PRN PRN Reason: anxiety Stop: 11/20/22 17:48 Last Admin: 10/22/22 21:59 Dose: 5 mg Calcitriol (Calcitriol 0.25 Mcg Capsule) 0.25 mcg PO DAILY [facility] Stop: 11/21/22 08:59 Last Admin: 10/23/22 08:29 Dose: 0.25 mcg Dextrose (Dextrose 50% 50 Ml Syringe) 25 - 50 ml IV UD PRN; Protocol PRN Reason: Hypoglycemia Protocol Stop: 11/20/22 17:48 Folic Acid (Folic Acid 1 Mg Tab) 2 mg PO DAILY [facility] Stop: 11/21/22 08:59 Last Admin: 10/23/22 08:29 Dose: 2 mg Gabapentin (Gabapentin 300 Mg Cap) 300 mg PO HS [facility] Stop: 11/20/22 20:59 Last Admin: 10/22/22 21:39 Dose: 300 mg Gabapentin (Gabapentin 100 Mg Cap) 100 mg PO BID@0900,1400 [facility] Stop: 11/21/22 08:59 Last Admin: 10/23/22 08:29 Dose: 100 mg Glucagon (Glucagon For Inj 1 Mg Vial) 1 mg SQ UD PRN; Protocol PRN Reason: Hypoglycemia Protocol Stop: 11/20/22 17:48 Glucose (Glucose 10 Tab/Tube) 4 - 8 tab PO UD PRN; Protocol PRN Reason: Hypoglycemia Treatment Stop: 11/20/22 17:48 Glucose (Glucose 40% Gel 15 Gm Tube) 15 - 30 gm PO UD PRN; Protocol PRN Reason: Hypoglycemia Protocol Stop: 11/20/22 17:48 Cefepime HCl 2,000 mg/ Syringe 20 mls @ 5 mls/min IV Q24H [facility]; Protocol Stop: 10/24/22 11:59 Last Admin: 10/22/22 12:13 Dose: 5 mls/min Doxycycline Hyclate 100 mg/ (Dextrose) 110 mls @ 50 mls/hr IV Q12H [facility] Stop: 10/24/22 09:59 Last Infusion: 10/23/22 00:00 Dose: Infused Insulin Aspart (Insulin Aspart Per Unit Charge) 0 units SC ACHS [facility] Stop: 11/20/22 20:59 Last Admin: 10/23/22 08:25 Dose: 5 units Insulin Glargine (Lantus Per Unit Charge) 13 units SQ BID [facility] Stop: 11/20/22 20:59 Last Admin: 10/23/22 08:26 Dose: 13 units Metoprolol Succinate (Metoprolol Succ 50mg Ext Rel Tab) 200 mg PO DAILY [facility] Stop: 11/21/22 08:59 Last Admin: 10/23/22 08:30 Dose: 200 mg Miscellaneous (Carbohydrates For Hypoglycemia ) 15 - 30 gm PO UD PRN PRN Reason: Hypoglycemia Protocol Stop: 11/20/22 17:48 Montelukast Sodium (Montelukast Sodium 10 Mg Tablet) 10 mg PO DAILY [facility] Stop: 11/21/22 08:59 Last Admin: 10/23/22 08:30 Dose: 10 mg Pantoprazole Sodium (Pantoprazole 40 Mg Tab) 40 mg PO BID [facility] Stop: 11/20/22 20:59 Last Admin: 10/23/22 08:30 Dose: 40 mg Polyethylene Glycol (Polyethylene (Miralax) 17 Gm Pack) 17 gm PO DAILY PRN PRN Reason: Constipation Stop: 11/20/22 17:48 Venlafaxine HCl (Venlafaxine Hcl Xr 37.5 Mg Capxr) 37.5 mg PO HS [facility] Stop: 11/20/22 20:59 Last Admin: 10/22/22 21:39 Dose: 37.5 mg Vitamin D (Cholecalciferol 1,000 Units 25 Mcg Tab) 2,000 units PO QAM [facility] Stop: 11/21/22 08:59 Last Admin: 10/23/22 08:29 Dose: 2,000 units Warfarin Sodium (Warfarin Sod 4 Mg Tab) 4 mg PO DAILY@1600 [facility] Stop: 11/21/22 15:59 Last Admin: 10/22/22 16:53 Dose: 4 mg
[2022-10-23 08:39] LABS: Basophils # (auto) 0.07 K/uL (0-0.2); Basophils % (auto) 0.4 %; Eosinophils # (auto) 0.32 K/uL (0-0.50); Eosinophils % (auto) 1.7 %; Hematocrit (blood only) 38.8 % (37.0-47.0); Hemoglobin 13.1 g/dl (12.0-16.0); Immature Granulocytes % (auto) 0.5 %; Lymphocytes % (auto) 13.1 %; Mean Corpuscular Hemoglobin 30.6 pg (25.0-34.0); Mean Corpuscular Hgb Conc 33.8 g/dL (32.0-36.0); Mean Corpuscular Volume 90.7 fL (80.0-100.0); Mean Platelet Volume 9.9 fL (9.4-12.4); Monocytes # (auto) 1.26 K/uL (0.11-0.59); Monocytes % (auto) 6.6 %; Neutrophils # (auto) 14.89 K/uL (1.40-6.50); Neutrophils % (auto) 77.7 %; Platelet Count 168 K/uL (130-400); RDW Coefficient of Variation 13.6 % (11.5-14.5); RDW Standard Deviation 45.1 fL (36.4-46.3); Red Blood Count 4.28 M/uL (4.20-5.40); White Blood Count 19.14 K/ul (4.8-10.8)
[2022-10-23 08:59] LABS: BUN Creatinine Ratio 21.3 (10-20); Est GFR (African American) 27.7 ml/min; Est GFR (Non-African American) 23.9 ml/min; Magnesium 1.7 mg/dl (1.7-2.4); Phosphorus 2.9 mg/dl (2.5-4.9); Potassium 3.9 mmol/L (3.5-5.1)
[2022-10-23 09:05] LABS: INR 1.6 (0.9-1.1); Prothrombin Time 17.3 Seconds (9.0-12.0)
[2022-10-23] MEDS: DOXYCYCLINE HYCLATE 100 MG in DEXTROSE 5% 100 ML IV SCH ×2 (10:10→22:23)
[2022-10-23] MEDS: CEFEPIME 2,000 MG in SYRINGE 0 ML IV SCH (13:15)
[2022-10-23] MEDS: WARFARIN SOD 4 MG TAB PO SCH (15:28)
[2022-10-23] MEDS: GABAPENTIN 300 MG CAP PO SCH (20:54)
[2022-10-23] MEDS: VENLAFAXINE HCL XR 37.5 MG CAPXR PO SCH (20:55)
[2022-10-23] MEDS: ACETAMINOPHEN 325 MG TAB PO PRN (23:23)
[2022-10-24 06:30] LABS: Basophils # (auto) 0.04 K/uL (0-0.2); Basophils % (auto) 0.4 %; Eosinophils # (auto) 0.39 K/uL (0-0.50); Hemoglobin 12.7 g/dl (12.0-16.0); Immature Granulocytes # (auto) 0.04 K/uL (0.01-0.20); Immature Granulocytes % (auto) 0.4 %; Lymphocytes # (auto) 2.47 K/uL (1.2-3.4); Lymphocytes % (auto) 25.6 %; Mean Corpuscular Hemoglobin 30.4 pg (25.0-34.0); Mean Corpuscular Hgb Conc 33.4 g/dL (32.0-36.0); Mean Corpuscular Volume 90.9 fL (80.0-100.0); Mean Platelet Volume 9.4 fL (9.4-12.4); Monocytes % (auto) 12.4 %; Neutrophils % (auto) 57.2 %; Platelet Count 170 K/uL (130-400); RDW Coefficient of Variation 13.2 % (11.5-14.5); RDW Standard Deviation 43.9 fL (36.4-46.3); Red Blood Count 4.18 M/uL (4.20-5.40); White Blood Count 9.64 K/ul (4.8-10.8)
[2022-10-24 06:40] LABS: BUN Creatinine Ratio 24.4 (10-20); Calcium 9.5 mg/dl (8.6-10.3); Creatinine Clr Calc Pharmacy 30.5 ml/min; Est GFR (African American) 33.7 ml/min; Est GFR (Non-African American) 29.1 ml/min; Magnesium 1.7 mg/dl (1.7-2.4); Phosphorus 3.3 mg/dl (2.5-4.9); Potassium 3.6 mmol/L (3.5-5.1)
[2022-10-24 07:26] LABS: INR 1.5 (0.9-1.1); Prothrombin Time 16.2 Seconds (9.0-12.0)
--- NOTE | 2022-10-24 07:54 | Hospitalist Progress Note ---
Date of Service October 24, 2022 Assessment & Plan (1) Fever: Plan: Per admitting provider w/ addendum Patient is 87 y/o F with PMH nonischemic cardiomyopathy, s/p ICD, paroxysmal atrial fibrillation anticoagulated on warfarin, history of cardioversion, DM II, HTN, dyslipidemia, CKD III-IV, rheumatoid arthritis presented to ER from [facility] for fever today In ER T: 38.6C oral. WBC: 23.8 K , procalcitonin: 0.7. UA negat. and ucultx + for mixed romulo, ? probably skin romulo, poss. UTI? Biofire resp. - negat. In ER given 1300ml NSS, cefepime Lactate: 2.2 -->1.5 Blood cultures negat. in 48 hrs CXR: No acute abnormalities and in particular no radiographic evidence of pneumonia. CT chest: No acute abnormalities and in particular no evidence of airspace opacities. Interstitial fibrotic changes with pulmonary hypertension. Denies N/V/D, abdominal pain. monitor CBC, CMP in a.m. Per admitting provider: 1. sirs rule out sepsis, possibly 2/2 UTI 2. possible RA flare 3. hypoxia 4. pulmonary fibrosis 5. morbid obesity There is no clear infectious cause at this time. Awaiting blood cultures. She does mention swollen/painful wrists for the past week and may be suffering from an RA flare or other cause of SIRS syndrome. There is no prior evidence in the outpatient or inpatient record reviews that reveal a history of pulmonary fibrosis or a workup for it. She has a h/o NICM and does not appear fluid overloaded at this time. ICD is in place. Echo obtained with elevated trop and her history. Will trend CBC in am and continue monitoring for clinical improvement on current therapy. Echo obtained EF 60 to 65%. Mild concentric LVH. Mild mitral annular calcification. Mild mitral regurg. Aortic valve sclerosis mild, without significant aortic valvular stenosis. Mild tricuspid regurg. Estimated systolic pulmonary pressure is 48 mmHg. Grade 1 diastolic dysfunction. Compared to prior study, there is no significant change. 10/22 White blood cell count continues to be elevated She is now afebrile continue cefepime, added doxycycline Continue to closely monitor, and follow blood cultures Encouraged incentive spirometry 10/23 Pt clinically much improved. She is currently on RA saturating 96%, afebrile, feeling well overall. WBC elevated but improved. 10/24 patient is afebrile, and breathing comfortably on room air. WBC normalized now. Source of infection unclear, however responded well to antibiotics. Urine culture showed mixed romulo, and pt has prior history of UTI, therefore questionable UTI. (2) Hypoxia: Plan: Noted to be hypoxic at 87% on room air at [facility]. In ER 88% on room air up to 95% on 3 L via nasal cannula Chest x-ray and CT chest scan without infiltrate. CT chest shows interstitial fibrotic changes Supplemental oxygen Incentive spirometry 10/23 Resolved - Currently on RA and saturating 96% (3) Elevated troponin: Plan: Initial high-sensitivity troponin: 14,likely demand ischemia, secondary to above EKG paced rhythm Patient without chest pain or shortness of breath Trended troponin echo obtained - w/o any significant changes (4) Non-ischemic cardiomyopathy: (5) Chronic systolic congestive heart failure: (6) Biventricular ICD (implantable cardioverter-defibrillator) in place: Plan: S/p ICD in 2015 Echo 2020: EF: 55-60%, grade 1 diastolic dysfunction Hold Lasix and spironolactone and reevaluate tomorrow (7) Paroxysmal atrial fibrillation: Plan: Chronically anticoagulated on warfarin INR: 2.7 Continue warfarin, metoprolol succinate (8) DMII (diabetes mellitus, type 2): Plan: A1c: 7.0 on 07/23/2022 Hold home insulin Basal bolus insulin per protocol A1c 7.4% (9) Stage III chronic kidney disease: Plan: Stage III-IV Cr: 1.75. Baseline 1.7-2 (10) Rheumatoid arthritis: Plan: CRP 1.7 (elev), ESR (9 normal) DDx: RA flare DVT Prophylaxis Anticoagulated on warfarin. INR therapeutic DNR/DNI as per discussion with pt Follows with Dr Gasca at [facility] for routine care Admission and Anticipated Discharge Date Admission Date: October 21, 2022 Subjective Pt seen in follow up of fever, hypoxia Currently laying in bed, in no acute distress, resting Breathing on RA Currently denies any fevers chills chest pain shortness of breath, denies any cough, denies abdominal pain nausea diarrhea Pt' s daughter updated over the phone at the bedside yesterday. Pt is inquiring about discharge. WBC normalized. Review of Systems Review of Systems: All systems reviewed & are unremarkable except as noted in Subjective Physical Exam Physical Exam: General: elderly F , obese, in NAD, on RA Head: normocephalic, atraumatic Eyes: conjunctiva non-injected, anicteric ENT: normal inspection external ears, nose, mucous membranes moist Neck: supple Lungs: no respiratory distress, CTAB, no wheezing/rhonchi CV: RRR, no murmur Abd: normal BS, soft, non-tender Ext: bilateral lower legs large but without pitting edema, no joint erythema noted Neuro: A&O x 3, normal affect, answers appropriately, speech fluent, moves extremities Skin: warm, dry Results & Data Results & Data Vital Signs (Past 12 Hours) Vital Signs Temp Pulse Pulse Resp BP BP Pulse Ox 10/24/22 06:02 80 10/23/22 21:59 79 10/24/22 03:06 36.4 C L 81 20 152/77 H 95 10/23/22 22:30 36.9 C 80 18 164/78 H 96 O2 Del Method 10/24/22 06:02 10/23/22 21:59 10/24/22 03:06 Room Air 10/23/22 22:30 Room Air Laboratory Results 10/24/22 10/24/22 10/24/22 Range/Units 07:38 05:48 05:48 WBC 9.64 (4.8-10.8) K/ul RBC 4.18 L (4.20-5.40) M/uL Hgb 12.7 (12.0-16.0) g/dl Hct 38.0 (37.0-47.0) % MCV 90.9 (80.0-100.0) fL MCH 30.4 (25.0-34.0) pg MCHC 33.4 (32.0-36.0) g/dL RDW Std Deviation 43.9 (36.4-46.3) fL RDW Coeff of Shai 13.2 (11.5-14.5) % Plt Count 170 (130-400) K/uL MPV 9.4 (9.4-12.4) fL Immature Gran % (Auto) 0.4 % Neut % (Auto) 57.2 % Lymph % (Auto) 25.6 % [place] % (Auto) 12.4 % Eos % (Auto) 4.0 % Baso % (Auto) 0.4 % Neut # (Auto) 5.50 (1.40-6.50) K/uL Lymph # (Auto) 2.47 (1.2-3.4) K/uL [place] # (Auto) 1.20 H (0.11-0.59) K/uL Eos # (Auto) 0.39 (0-0.50) K/uL Baso # (Auto) 0.04 (0-0.2) K/uL Immature Gran # (Auto) 0.04 (0.01-0.20) K/uL PT (9.0-12.0) Seconds INR (0.9-1.1) Sodium 141 (136-145) mmol/L Potassium 3.6 (3.5-5.1) mmol/L Chloride 105 (98-107) mmol/L Carbon Dioxide 31 (21-32) mmol/L Anion Gap 5 (3-11) BUN 39 H (6-23) mg/dl Creatinine 1.60 H (0.6-1.2) mg/dl Est Cr Clr Drug Dosing 30.5 ml/min Est GFR ( Amer) 33.7 ml/min Est GFR (Non-Af Amer) 29.1 ml/min BUN/Creatinine Ratio 24.4 H (10-20) Glucose 83 (70-99(Fasting)) mg/dl POC Glucose 94 (70-99) mg/dl Calcium 9.5 (8.6-10.3) mg/dl Phosphorus 3.3 (2.5-4.9) mg/dl Magnesium 1.7 (1.7-2.4) mg/dl 10/24/22 10/23/22 10/23/22 Range/Units 05:48 20:26 16:35 WBC (4.8-10.8) K/ul RBC (4.20-5.40) M/uL Hgb (12.0-16.0) g/dl Hct (37.0-47.0) % MCV (80.0-100.0) fL MCH (25.0-34.0) pg MCHC (32.0-36.0) g/dL RDW Std Deviation (36.4-46.3) fL RDW Coeff of Shai (11.5-14.5) % Plt Count (130-400) K/uL MPV (9.4-12.4) fL Immature Gran % (Auto) % Neut % (Auto) % Lymph % (Auto) % [place] % (Auto) % Eos % (Auto) % Baso % (Auto) % Neut # (Auto) (1.40-6.50) K/uL Lymph # (Auto) (1.2-3.4) K/uL [place] # (Auto) (0.11-0.59) K/uL Eos # (Auto) (0-0.50) K/uL Baso # (Auto) (0-0.2) K/uL Immature Gran # (Auto) (0.01-0.20) K/uL PT 16.2 H (9.0-12.0) Seconds INR 1.5 H (0.9-1.1) Sodium (136-145) mmol/L Potassium (3.5-5.1) mmol/L Chloride (98-107) mmol/L Carbon Dioxide (21-32) mmol/L Anion Gap (3-11) BUN (6-23) mg/dl Creatinine (0.6-1.2) mg/dl Est Cr Clr Drug Dosing ml/min Est GFR ( Amer) ml/min Est GFR (Non-Af Amer) ml/min BUN/Creatinine Ratio (10-20) Glucose (70-99(Fasting)) mg/dl POC Glucose 216 H 73 (70-99) mg/dl Calcium (8.6-10.3) mg/dl Phosphorus (2.5-4.9) mg/dl Magnesium (1.7-2.4) mg/dl 10/23/22 10/23/22 10/23/22 Range/Units 11:50 07:49 07:49 WBC 19.14 H (4.8-10.8) K/ul RBC 4.28 (4.20-5.40) M/uL Hgb 13.1 (12.0-16.0) g/dl Hct 38.8 (37.0-47.0) % MCV 90.7 (80.0-100.0) fL MCH 30.6 (25.0-34.0) pg MCHC 33.8 (32.0-36.0) g/dL RDW Std Deviation 45.1 (36.4-46.3) fL RDW Coeff of Shai 13.6 (11.5-14.5) % Plt Count 168 (130-400) K/uL MPV 9.9 (9.4-12.4) fL Immature Gran % (Auto) 0.5 % Neut % (Auto) 77.7 % Lymph % (Auto) 13.1 % [place] % (Auto) 6.6 % Eos % (Auto) 1.7 % Baso % (Auto) 0.4 % Neut # (Auto) 14.89 H (1.40-6.50) K/uL Lymph # (Auto) 2.50 (1.2-3.4) K/uL [place] # (Auto) 1.26 H (0.11-0.59) K/uL Eos # (Auto) 0.32 (0-0.50) K/uL Baso # (Auto) 0.07 (0-0.2) K/uL Immature Gran # (Auto) 0.10 (0.01-0.20) K/uL PT (9.0-12.0) Seconds INR (0.9-1.1) Sodium 139 (136-145) mmol/L Potassium 3.9 (3.5-5.1) mmol/L Chloride 104 (98-107) mmol/L Carbon Dioxide 29 (21-32) mmol/L Anion Gap 6 (3-11) BUN 40 H (6-23) mg/dl Creatinine 1.88 H (0.6-1.2) mg/dl Est Cr Clr Drug Dosing 26.0 ml/min Est GFR ( Amer) 27.7 ml/min Est GFR (Non-Af Amer) 23.9 ml/min BUN/Creatinine Ratio 21.3 H (10-20) Glucose 132 H (70-99(Fasting)) mg/dl POC Glucose 149 H (70-99) mg/dl Calcium 9.0 (8.6-10.3) mg/dl Phosphorus 2.9 (2.5-4.9) mg/dl Magnesium 1.7 (1.7-2.4) mg/dl 10/23/22 Range/Units 07:49 WBC (4.8-10.8) K/ul RBC (4.20-5.40) M/uL Hgb (12.0-16.0) g/dl Hct (37.0-47.0) % MCV (80.0-100.0) fL MCH (25.0-34.0) pg MCHC (32.0-36.0) g/dL RDW Std Deviation (36.4-46.3) fL RDW Coeff of Shai (11.5-14.5) % Plt Count (130-400) K/uL MPV (9.4-12.4) fL Immature Gran % (Auto) % Neut % (Auto) % Lymph % (Auto) % [place] % (Auto) % Eos % (Auto) % Baso % (Auto) % Neut # (Auto) (1.40-6.50) K/uL Lymph # (Auto) (1.2-3.4) K/uL [place] # (Auto) (0.11-0.59) K/uL Eos # (Auto) (0-0.50) K/uL Baso # (Auto) (0-0.2) K/uL Immature Gran # (Auto) (0.01-0.20) K/uL PT 17.3 H (9.0-12.0) Seconds INR 1.6 H (0.9-1.1) Sodium (136-145) mmol/L Potassium (3.5-5.1) mmol/L Chloride (98-107) mmol/L Carbon Dioxide (21-32) mmol/L Anion Gap (3-11) BUN (6-23) mg/dl Creatinine (0.6-1.2) mg/dl Est Cr Clr Drug Dosing ml/min Est GFR ( Amer) ml/min Est GFR (Non-Af Amer) ml/min BUN/Creatinine Ratio (10-20) Glucose (70-99(Fasting)) mg/dl POC Glucose (70-99) mg/dl Calcium (8.6-10.3) mg/dl Phosphorus (2.5-4.9) mg/dl Magnesium (1.7-2.4) mg/dl Medications Administered Current Inpatient Medications Acetaminophen (Acetaminophen 325 Mg Tab) 650 mg PO Q4H PRN PRN Reason: Pain or Fever Stop: 11/20/22 17:48 Last Admin: 10/23/22 23:23 Dose: 650 mg Hydrocodone Bitart/Acetaminophen (Hydrocodone/Acetamophen 5/325mg Tab) 1 tab PO Q4 PRN PRN Reason: Severe Pain (Scale Score 7-10) Stop: 11/04/22 17:48 Atorvastatin Calcium (Atorvastatin 10 Mg Tab) 10 mg PO DAILY NIHARIKA Stop: 11/21/22 08:59 Last Admin: 10/24/22 08:00 Dose: 10 mg Buspirone HCl (Buspirone 5 Mg Tab) 5 mg PO BID PRN PRN Reason: anxiety Stop: 11/20/22 17:48 Last Admin: 10/22/22 21:59 Dose: 5 mg Calcitriol (Calcitriol 0.25 Mcg Capsule) 0.25 mcg PO DAILY NIHARIKA Stop: 11/21/22 08:59 Last Admin: 10/24/22 08:00 Dose: 0.25 mcg Dextrose (Dextrose 50% 50 Ml Syringe) 25 - 50 ml IV UD PRN; Protocol PRN Reason: Hypoglycemia Protocol Stop: 11/20/22 17:48 Folic Acid (Folic Acid 1 Mg Tab) 2 mg PO DAILY NIHARIKA Stop: 11/21/22 08:59 Last Admin: 10/24/22 08:00 Dose: 2 mg Gabapentin (Gabapentin 300 Mg Cap) 300 mg PO HS NIHARIKA Stop: 11/20/22 20:59 Last Admin: 10/23/22 20:54 Dose: 300 mg Gabapentin (Gabapentin 100 Mg Cap) 100 mg PO BID@0900,1400 NIHARIKA Stop: 11/21/22 08:59 Last Admin: 10/24/22 13:49 Dose: 100 mg Glucagon (Glucagon For Inj 1 Mg Vial) 1 mg SQ UD PRN; Protocol PRN Reason: Hypoglycemia Protocol Stop: 11/20/22 17:48 Glucose (Glucose 10 Tab/Tube) 4 - 8 tab PO UD PRN; Protocol PRN Reason: Hypoglycemia Treatment Stop: 11/20/22 17:48 Glucose (Glucose 40% Gel 15 Gm Tube) 15 - 30 gm PO UD PRN; Protocol PRN Reason: Hypoglycemia Protocol Stop: 11/20/22 17:48 Doxycycline Hyclate 100 mg/ (Dextrose) 110 mls @ 50 mls/hr IV Q12H NIHARIKA Stop: 10/26/22 12:59 Last Infusion: 10/24/22 14:10 Dose: 0 mls/hr Cefepime HCl 1,000 mg/ Syringe 10 mls @ 5 mls/min IV Q12H [facility]; Protocol Stop: 10/26/22 12:59 Last Admin: 10/24/22 13:49 Dose: 5 mls/min Insulin Aspart (Insulin Aspart Per Unit Charge) 0 units SC ACHS [facility] Stop: 11/20/22 20:59 Last Admin: 10/24/22 12:05 Dose: 5 units Insulin Glargine (Lantus Per Unit Charge) 13 units SQ BID [facility] Stop: 11/20/22 20:59 Last Admin: 10/24/22 07:56 Dose: 13 units Metoprolol Succinate (Metoprolol Succ 50mg Ext Rel Tab) 200 mg PO DAILY NIHARIKA Stop: 11/21/22 08:59 Last Admin: 10/24/22 08:00 Dose: 200 mg Miscellaneous (Carbohydrates For Hypoglycemia ) 15 - 30 gm PO UD PRN PRN Reason: Hypoglycemia Protocol Stop: 11/20/22 17:48 Montelukast Sodium (Montelukast Sodium 10 Mg Tablet) 10 mg PO DAILY [facility] Stop: 11/21/22 08:59 Last Admin: 10/24/22 08:01 Dose: 10 mg Pantoprazole Sodium (Pantoprazole 40 Mg Tab) 40 mg PO BID [facility] Stop: 11/20/22 20:59 Last Admin: 10/24/22 08:00 Dose: 40 mg Polyethylene Glycol (Polyethylene (Miralax) 17 Gm Pack) 17 gm PO DAILY PRN PRN Reason: Constipation Stop: 11/20/22 17:48 Venlafaxine HCl (Venlafaxine Hcl Xr 37.5 Mg Capxr) 37.5 mg PO HS [facility] Stop: 11/20/22 20:59 Last Admin: 10/23/22 20:55 Dose: 37.5 mg Vitamin D (Cholecalciferol 1,000 Units 25 Mcg Tab) 2,000 units PO QAM [facility] Stop: 11/21/22 08:59 Last Admin: 10/24/22 08:00 Dose: 2,000 units Warfarin Sodium (Warfarin Sod 4 Mg Tab) 4 mg PO DAILY@1600 [facility] Stop: 11/21/22 15:59 Last Admin: 10/23/22 15:28 Dose: 4 mg
[2022-10-24] MEDS: LANTUS PER UNIT CHARGE SQ SCH ×2 (07:56→20:52)
[2022-10-24] MEDS: INSULIN ASPART PER UNIT CHARGE SC SCH ×5 (07:57→20:53)
[2022-10-24] MEDS: PANTOprazole 40 MG TAB PO SCH ×2 (08:00→20:54)
[2022-10-24] MEDS: METOPROLOL SUCC 50MG EXT REL TAB PO SCH (08:00)
[2022-10-24] MEDS: GABAPENTIN 100 MG CAP PO SCH ×2 (08:00→13:49)
[2022-10-24] MEDS: CALCITRIOL 0.25 MCG CAPSULE PO SCH (08:00)
[2022-10-24] MEDS: FOLIC ACID 1 MG TAB PO SCH (08:00)
[2022-10-24] MEDS: CHOLECALCIFEROL 1,000 UNITS 25 MCG TAB PO SCH (08:00)
[2022-10-24] MEDS: ATORVASTATIN 10 MG TAB PO SCH (08:00)
[2022-10-24] MEDS: MONTELUKAST SODIUM 10 MG TABLET PO SCH (08:01)
--- NOTE | 2022-10-24 08:05 | Emergency Department Note ---
Impression & Plan Fever, Hypoxia ED Provider Note CHIEF COMPLAINT: Fever HISTORY OF PRESENT ILLNESS: This 87-year-old female with past medical history of patient atrial fibrillation on warfarin, spinal stenosis, anxiety, diabetes with peripheral neuropathy, chronic kidney disease, GERD, rheumatoid arthritis, presents to the emergency department with complaints of weakness, generalized illness and some shortness of breath. Patient resides at [facility] where she was noted to have a fever after complaints of a headache. She was given Tylenol at 0830 and transported to the hospital via EMS. The patient states she has just felt fatigued but has no complaints otherwise. She denies any significant coughing or wheezing. REVIEW OF SYSTEMS: A review of systems was performed with positives and pertinent negatives listed in the history of present illness. 10 systems were reviewed and are otherwise negative. ALLERGIES: see below MEDICATIONS: see below PMH: see below SOCIAL HISTORY: see below DDx: UTI, viral upper respiratory infection, pneumonia, dehydration, hypo/hyper glycemia, reactive airway disease, renal failure as well as other pathologies. PHYSICAL EXAM: Vital signs reviewed. Noted to be febrile General: Generally well-appearing 87-year-old female, on nasal cannula oxygen but in no significant distress. HEENT: No scleral icterus, PERRLA, neck supple. Moist mucous membranes Cardiovascular: Regular rate and rhythm, no extra sounds. Pulmonary: Clear to auscultation bilaterally, normal work of breathing. Abdomen: Soft, nontender, nondistended, positive bowel sounds. Musculoskeletal: Atraumatic, no peripheral edema. Neurologic: Patient awake alert and oriented x 3, speech is clear Skin: Warm, dry, no rash EMERGENCY DEPARTMENT COURSE/MDM: This patient was evaluated and appeared to be in no significant distress. Patient is noted to be febrile and hypoxic. She was placed on nasal cannula oxygen and given 1 g of oral Tylenol. IV fluids were initiated. Blood cultures are pending. Chest x-ray was performed and is clear. Upper respiratory bio fire panel was performed and is negative. UA was obtained and is contaminated but will be sent for culture. The patient did receive IV cefepime. The etiology of the fever is unclear at this time. Given her hypoxia and markedly elevated WBC at 23, the patient will be evaluated by the hospitalist service for admission and further management. Patient was made aware of the plan and agreed. MONITORING: An order for cardiac monitoring was placed and the patient is noted to be in a paced rhythm at 80 beats per minute. RADIOLOGY: Chest x-ray to my interpretation reveals no evidence of focal lung consolidation or failure. Otherwise defer to radiology. Chest CT per rads IMPRESSION: 1. No acute abnormalities and in particular no evidence of airspace opacities. 2. Interstitial fibrotic changes with pulmonary hypertension. EKG: To my interpretation reveals an atrially sensed and ventricularly paced rhythm at 83 bpm. QTc is prolonged at 498. Normal ST segments. When compared to previous dated April 15, 2021, PVCs have resolved. DISPOSITION: Admit Past Med/Surg History Medical History Anxiety and depression Atrial fibrillation Biventricular ICD (implantable cardioverter-defibrillator) in place (2015) [employer]>GETS CHECKED BY DR. VARGAS Chronic diarrhea Chronic systolic congestive heart failure COVID-19 (~03/2021) Degenerative disc disease Degenerative lumbar spinal stenosis Diabetes mellitus, type 2 Diabetic neuropathy CARRILLO (dyspnea on exertion) Dyslipidemia GERD without esophagitis History of basal cell carcinoma Hx of squamous cell carcinoma Hypertension Non-ischemic cardiomyopathy PAC (premature atrial contraction) Rheumatoid arthritis Sensorineural hearing loss (SNHL) of both ears Stage III chronic kidney disease Third degree AV block Surgical History History of anesthesia reaction CONFUSION WITH GALLBLADDER REMOVAL, AWARENESS DURING COLONOSCOPY History of cataract surgery RT/LEFT History of colonoscopy History of esophagogastroduodenoscopy (EGD) History of tooth extraction S/P cholecystectomy S/P total knee arthroplasty RT/LEFT S/P tubal ligation Family History Father Heart disease Mother Diabetes Heart disease Myocardial infarction Family history of diabetes mellitus Grandfather (Maternal) Prostate cancer Family history of diabetes mellitus Other Family history non-contributory No family history of adverse response to anesthesia Denies family history of Ovarian cancer Breast cancer Colorectal cancer Social History Smoking Status: Never smoker Second Hand Exposure: No; Do You Dip or Chew Tobacco: No; Tobacco Cessation Education Requested by Patient: No Hx Alcohol Use: No Hx Substance Use: No Preferred Language: Latvian Communication Ability: Effective Communication Ability Comment: pt does have earring aids Visual Impairment: No Limitations Hearing Ability: Use of Hearing Aid Burlesque Dancer Required: No Beliefs That Will Affect Care: Episcopalian Episcopalian Beliefs: pentecostalism marital status: Single Current Living Situation: Snf Current Living Situation Comment: pt lives alone, has daughter and son check on her current occupational status: retired Feels Safe at Home: Yes Safety Concerns: Feels Safe At This Time Childhood Exposure to Second-Hand Smoke: Yes Diet: regular Dental Care, Regularly: Yes Physical Activity Frequency: Does not Exercise Seatbelt Use: always Sunscreen Use: Yes Assistive Devices: Wheelchair Allergies Allergies Allergy/AdvReac Type Severity Reaction Status Date / Time amiodarone AdvReac Intermediate gi distress Verified 10/21/22 15:47 aspirin AdvReac Intermediate history of Verified 10/21/22 15:47 ulcers nortriptyline AdvReac Unknown DOESN'T Verified 10/21/22 15:47 REMEMBER Home Meds Home Medications Medication Instructions Recorded Confirmed vitamin B complex 1 tab PO DAILY 07/02/21 10/21/22 folic acid 1 mg tablet 2 mg PO DAILY 09/04/21 10/21/22 montelukast 10 mg tablet 10 mg PO DAILY 05/10/22 10/21/22 acetaminophen 325 mg tablet 650 mg PO Q6 PRN Fever Or Pain 08/28/22 10/21/22 hydrocodone 5 mg-acetaminophen 325 1 tab PO Q4 PRN Severe Pain (Scale 08/28/22 10/21/22 mg tablet Score 7-10) insulin glargine U-300 conc 300 25 unit subcut DAILY 08/28/22 10/21/22 unit/mL (1.5 mL) subcutaneous pen (Toujeo SoloStar U-300 Insulin) polyethylene glycol 3350 17 gram 17 g PO DAILY PRN Constipation 08/28/22 10/21/22 oral powder packet (Miralax) spironolactone 25 mg tablet 25 mg PO 3XWK 08/28/22 10/21/22 venlafaxine 37.5 mg 37.5 mg PO HS 08/28/22 10/21/22 capsule,extended release 24 hr insulin lispro 100 unit/mL 1 sliding scale dose subcut TIDM 09/21/22 10/21/22 subcutaneous solution (Humalog U-100 Insulin) Previous Rx's Medication Instructions Recorded meclizine 25 mg tablet 25 mg PO TID PRN dizziness #30 tabs 12/20/19 cholecalciferol (vitamin D3) 50 2,000 unit PO QAM #90 caps 03/25/20 mcg (2,000 unit) capsule (Vitamin D3) buspirone 5 mg tablet 5 mg PO BID PRN anxiety #60 tabs 04/11/21 calcitriol 0.25 mcg capsule 0.25 mcg PO DAILY #90 caps 05/27/21 blood sugar diagnostic #100 ea 09/01/21 pen needle, diabetic 32 gauge x #100 ea 09/01/2106/17" (BD Ultra-Fine Micro Pen Needle) atorvastatin 10 mg tablet 10 mg PO DAILY #90 tabs 09/11/21 flash glucose scanning reader #2 ea 10/16/21 (FreeStyle Goldie 14 Day Gallion) flash glucose sensor (FreeStyle #2 ea 10/16/21 Goldie 14 Day Sensor kit) blood sugar diagnostic #100 ea 02/17/22 walker #1 ea 02/17/22 metoprolol succinate 200 mg 200 mg PO DAILY #90 tabs 02/25/22 tablet,extended release 24 hr pantoprazole 40 mg tablet,delayed 40 mg PO BID #180 tabs 02/25/22 release lorazepam 0.5 mg tablet 0.5 mg PO BID PRN anxiety #60 tabs 04/30/22 miscellaneous medical supply #1 ea 05/04/22 benzonatate 200 mg capsule 200 mg PO TID PRN cough #30 caps 05/06/22 gabapentin 100 mg capsule 100 mg PO BID@0900,1400 #0 caps 05/16/22 gabapentin 300 mg capsule 300 mg PO HS #0 caps 05/16/22 warfarin 4 mg tablet (Jantoven) 4 mg PO DAILY@1600 #0 tabs 05/16/22 furosemide 40 mg tablet 40 mg PO DAILY #90 tabs 08/28/22 Results & Data (ED) Home Medications Current Medication List: was personally reviewed by me Laboratory Data Attestation: I reviewed the patient's lab results. 10/24/22 05:48 10/24/22 05:48 Lab Results 10/21/22 10/21/22 10/21/22 Range/Units 14:21 14:21 14:21 WBC 23.89 H (4.8-10.8) K/ul RBC 4.33 (4.20-5.40) M/uL Hgb 13.2 (12.0-16.0) g/dl Hct 39.5 (37.0-47.0) % MCV 91.2 (80.0-100.0) fL MCH 30.5 (25.0-34.0) pg MCHC 33.4 (32.0-36.0) g/dL RDW Std Deviation 44.6 (36.4-46.3) fL RDW Coeff of Shai 13.2 (11.5-14.5) % Plt Count 175 (130-400) K/uL MPV 9.7 (9.4-12.4) fL Immature Gran % (Auto) 0.8 % Neut % (Auto) 89.7 % Lymph % (Auto) 4.3 % [place] % (Auto) 4.8 % Eos % (Auto) 0.1 % Baso % (Auto) 0.3 % Neut # (Auto) 21.43 H (1.40-6.50) K/uL Lymph # (Auto) 1.02 L (1.2-3.4) K/uL [place] # (Auto) 1.14 H (0.11-0.59) K/uL Eos # (Auto) 0.02 (0-0.50) K/uL Baso # (Auto) 0.08 (0-0.2) K/uL Immature Gran # (Auto) 0.20 (0.01-0.20) K/uL Platelet Estimate Normal (Normal) PT 27.7 H (9.0-12.0) Seconds INR 2.7 H (0.9-1.1) Sodium 133 L (136-145) mmol/L Potassium 3.7 (3.5-5.1) mmol/L Chloride 96 L (98-107) mmol/L Carbon Dioxide 27 (21-32) mmol/L Anion Gap 10 (3-11) BUN 45 H (6-23) mg/dl Creatinine 1.75 H (0.6-1.2) mg/dl Est Cr Clr Drug Dosing 28.6 ml/min Est GFR ( Amer) 30.2 ml/min Est GFR (Non-Af Amer) 26.1 ml/min BUN/Creatinine Ratio 25.7 H (10-20) Glucose 204 H (70-99(Fasting)) mg/dl Lactate (0.4-2.0) mmol/L Calcium 9.3 (8.6-10.3) mg/dl Total Bilirubin 0.7 (0.2-1.0) mg/dl AST 20 (13-39) U/L ALT 15 (7-52) U/L Alkaline Phosphatase 73 (34-104) U/L Troponin I High Sens 14.2 H (0-14) pg/ml Total Protein 6.4 (6.0-8.3) gm/dl Albumin 3.6 (3.4-5.0) gm/dl Globulin 2.8 (2.5-4.0) gm/dl Albumin/Globulin Ratio 1.3 (0.9-2) Procalcitonin (0-0.5) ng/ml Urine Color Urine Appearance (Clear) Urine pH (4.5-7.5) Ur Specific [place] (1.000-1.030) Urine Protein (Negative) Urine Glucose (UA) (Negative) Urine Ketones (Negative) Urine Blood (Negative) Urine Nitrite (Negative) Urine Bilirubin (Negative) Urine Urobilinogen (Negative) Ur Leukocyte Esterase (Negative) Urine WBC (Auto) (0-5) /hpf Urine RBC (Auto) (0-4) /hpf U Hyaline Cast (Auto) (0-5) /lpf U Epithel Cells (Auto) (0-5) /lpf Urine Bacteria (Auto) (Negative) Lyme Disease IgG Ab (Negative) Lyme Disease IgM Ab (Negative) 10/21/22 10/21/22 10/21/22 Range/Units 14:21 14:21 14:21 WBC (4.8-10.8) K/ul RBC (4.20-5.40) M/uL Hgb (12.0-16.0) g/dl Hct (37.0-47.0) % MCV (80.0-100.0) fL MCH (25.0-34.0) pg MCHC (32.0-36.0) g/dL RDW Std Deviation (36.4-46.3) fL RDW Coeff of Shai (11.5-14.5) % Plt Count (130-400) K/uL MPV (9.4-12.4) fL Immature Gran % (Auto) % Neut % (Auto) % Lymph % (Auto) % [place] % (Auto) % Eos % (Auto) % Baso % (Auto) % Neut # (Auto) (1.40-6.50) K/uL Lymph # (Auto) (1.2-3.4) K/uL [place] # (Auto) (0.11-0.59) K/uL Eos # (Auto) (0-0.50) K/uL Baso # (Auto) (0-0.2) K/uL Immature Gran # (Auto) (0.01-0.20) K/uL Platelet Estimate (Normal) PT (9.0-12.0) Seconds INR (0.9-1.1) Sodium (136-145) mmol/L Potassium (3.5-5.1) mmol/L Chloride (98-107) mmol/L Carbon Dioxide (21-32) mmol/L Anion Gap (3-11) BUN (6-23) mg/dl Creatinine (0.6-1.2) mg/dl Est Cr Clr Drug Dosing ml/min Est GFR ( Amer) ml/min Est GFR (Non-Af Amer) ml/min BUN/Creatinine Ratio (10-20) Glucose (70-99(Fasting)) mg/dl Lactate 2.2 H* (0.4-2.0) mmol/L Calcium (8.6-10.3) mg/dl Total Bilirubin (0.2-1.0) mg/dl AST (13-39) U/L ALT (7-52) U/L Alkaline Phosphatase (34-104) U/L Troponin I High Sens (0-14) pg/ml Total Protein (6.0-8.3) gm/dl Albumin (3.4-5.0) gm/dl Globulin (2.5-4.0) gm/dl Albumin/Globulin Ratio (0.9-2) Procalcitonin 0.70 H (0-0.5) ng/ml Urine Color Urine Appearance (Clear) Urine pH (4.5-7.5) Ur Specific [place] (1.000-1.030) Urine Protein (Negative) Urine Glucose (UA) (Negative) Urine Ketones (Negative) Urine Blood (Negative) Urine Nitrite (Negative) Urine Bilirubin (Negative) Urine Urobilinogen (Negative) Ur Leukocyte Esterase (Negative) Urine WBC (Auto) (0-5) /hpf Urine RBC (Auto) (0-4) /hpf U Hyaline Cast (Auto) (0-5) /lpf U Epithel Cells (Auto) (0-5) /lpf Urine Bacteria (Auto) (Negative) Lyme Disease IgG Ab Negative (Negative) Lyme Disease IgM Ab Negative (Negative) 10/21/22 Range/Units 14:50 WBC (4.8-10.8) K/ul RBC (4.20-5.40) M/uL Hgb (12.0-16.0) g/dl Hct (37.0-47.0) % MCV (80.0-100.0) fL MCH (25.0-34.0) pg MCHC (32.0-36.0) g/dL RDW Std Deviation (36.4-46.3) fL RDW Coeff of Shai (11.5-14.5) % Plt Count (130-400) K/uL MPV (9.4-12.4) fL Immature Gran % (Auto) % Neut % (Auto) % Lymph % (Auto) % [place] % (Auto) % Eos % (Auto) % Baso % (Auto) % Neut # (Auto) (1.40-6.50) K/uL Lymph # (Auto) (1.2-3.4) K/uL [place] # (Auto) (0.11-0.59) K/uL Eos # (Auto) (0-0.50) K/uL Baso # (Auto) (0-0.2) K/uL Immature Gran # (Auto) (0.01-0.20) K/uL Platelet Estimate (Normal) PT (9.0-12.0) Seconds INR (0.9-1.1) Sodium (136-145) mmol/L Potassium (3.5-5.1) mmol/L Chloride (98-107) mmol/L Carbon Dioxide (21-32) mmol/L Anion Gap (3-11) BUN (6-23) mg/dl Creatinine (0.6-1.2) mg/dl Est Cr Clr Drug Dosing ml/min Est GFR ( Amer) ml/min Est GFR (Non-Af Amer) ml/min BUN/Creatinine Ratio (10-20) Glucose (70-99(Fasting)) mg/dl Lactate (0.4-2.0) mmol/L Calcium (8.6-10.3) mg/dl Total Bilirubin (0.2-1.0) mg/dl AST (13-39) U/L ALT (7-52) U/L Alkaline Phosphatase (34-104) U/L Troponin I High Sens (0-14) pg/ml Total Protein (6.0-8.3) gm/dl Albumin (3.4-5.0) gm/dl Globulin (2.5-4.0) gm/dl Albumin/Globulin Ratio (0.9-2) Procalcitonin (0-0.5) ng/ml Urine Color Yellow Urine Appearance Clear (Clear) Urine pH 6.0 (4.5-7.5) Ur Specific [place] 1.009 (1.000-1.030) Urine Protein Negative (Negative) Urine Glucose (UA) Trace H (Negative) Urine Ketones Negative (Negative) Urine Blood Negative (Negative) Urine Nitrite Negative (Negative) Urine Bilirubin Negative (Negative) Urine Urobilinogen Negative (Negative) Ur Leukocyte Esterase 2+ H (Negative) Urine WBC (Auto) >30 H (0-5) /hpf Urine RBC (Auto) 0-4 (0-4) /hpf U Hyaline Cast (Auto) 1-5 (0-5) /lpf U Epithel Cells (Auto) >30 H (0-5) /lpf Urine Bacteria (Auto) Negative (Negative) Lyme Disease IgG Ab (Negative) Lyme Disease IgM Ab (Negative) Administered Medications Acetaminophen (Acetaminophen 325 Mg Tab) 650 mg PO Q4H PRN PRN Reason: Pain or Fever Stop: 11/20/22 17:48 Last Admin: 10/23/22 23:23 Dose: 650 mg Documented By: QG Atorvastatin Calcium (Atorvastatin 10 Mg Tab) 10 mg PO DAILY NIHARIKA Stop: 11/21/22 08:59 Last Admin: 10/23/22 08:29 Dose: 10 mg Documented By: Admin: 10/22/22 08:57 Dose: 10 mg Documented By: RRR Buspirone HCl (Buspirone 5 Mg Tab) 5 mg PO BID PRN PRN Reason: anxiety Stop: 11/20/22 17:48 Last Admin: 10/22/22 21:59 Dose: 5 mg Documented By: AKANKSHA Calcitriol (Calcitriol 0.25 Mcg Capsule) 0.25 mcg PO DAILY NIHARIKA Stop: 11/21/22 08:59 Last Admin: 10/23/22 08:29 Dose: 0.25 mcg Documented By: Admin: 10/22/22 08:57 Dose: 0.25 mcg Documented By: RRR Folic Acid (Folic Acid 1 Mg Tab) 2 mg PO DAILY NIHARIKA Stop: 11/21/22 08:59 Last Admin: 10/23/22 08:29 Dose: 2 mg Documented By: Admin: 10/22/22 08:58 Dose: 2 mg Documented By: JESSICAR Gabapentin (Gabapentin 300 Mg Cap) 300 mg PO HS NIHARIKA Stop: 11/20/22 20:59 Last Admin: 10/23/22 20:54 Dose: 300 mg Documented By: Admin: 10/22/22 21:39 Dose: 300 mg Documented By: Admin: 10/21/22 21:34 Dose: 300 mg Documented By: AKANKSHA Gabapentin (Gabapentin 100 Mg Cap) 100 mg PO BID@0900,1400 NIHARIKA Stop: 11/21/22 08:59 Last Admin: 10/23/22 15:28 Dose: 100 mg Documented By: Admin: 10/23/22 08:29 Dose: 100 mg Documented By: Admin: 10/22/22 14:07 Dose: 100 mg Documented By: Admin: 10/22/22 08:58 Dose: 100 mg Documented By: LOUISA Cefepime HCl 2,000 mg/ Syringe 20 mls @ 5 mls/min IV Q24H NIHARIKA; Protocol Stop: 10/24/22 11:59 Last Admin: 10/23/22 13:15 Dose: 5 mls/min Documented By: Admin: 10/22/22 12:13 Dose: 5 mls/min Documented By: RRR Doxycycline Hyclate 100 mg/ (Dextrose) 110 mls @ 50 mls/hr IV Q12H NIHARIKA Stop: 10/24/22 09:59 Last Infusion: 10/24/22 01:18 Dose: 0 mls/hr Documented By: Admin: 10/23/22 22:23 Dose: 50 mls/hr Documented By: Infusion: 10/23/22 13:52 Dose: 0 mls/hr Documented By: Admin: 10/23/22 10:10 Dose: 50 mls/hr Documented By: Infusion: 10/23/22 00:00 Dose: 0 mls/hr Documented By: Admin: 10/22/22 21:59 Dose: 55 mls/hr Documented By: Infusion: 10/22/22 16:50 Dose: 0 mls/hr Documented By: RRAquiles Admin: 10/22/22 14:06 Dose: 50 mls/hr Documented By: LOUISA Insulin Aspart (Insulin Aspart Per Unit Charge) 0 units SC ACHS NIHARIKA Stop: 11/20/22 20:59 Last Admin: 10/23/22 20:52 Dose: 2 units Documented By: LIVAN Co-signed By: ALEXEI Admin: 10/23/22 17:06 Dose: 2 units Documented By: RRAquiles Co-signed By: SEAN Admin: 10/23/22 12:30 Dose: 3 units Documented By: RRAquiles Co-signed By: KELSY Admin: 10/23/22 08:25 Dose: 5 units Documented By: LOUISA Co-signed By: KELSY Admin: 10/22/22 22:04 Dose: 2 units Documented By: AKANKSHA Co-signed By: KATHLEEN Admin: 10/22/22 17:48 Dose: Not Given Documented By: RRAquiles Admin: 10/22/22 12:04 Dose: 8 units Documented By: RRR Co-signed By: GABBY Admin: 10/22/22 08:56 Dose: 5 units Documented By: RRR Co-signed By: MAEVE Admin: 10/21/22 21:30 Dose: 2 units Documented By: AKANKSHA Co-signed By: JER Insulin Glargine (Lantus Per Unit Charge) 13 units SQ BID NIHARIKA Stop: 11/20/22 20:59 Last Admin: 10/23/22 20:52 Dose: 13 units Documented By: LIVAN Co-signed By: ALEXEI Admin: 10/23/22 08:26 Dose: 13 units Documented By: LOUISA Co-signed By: KELSY Admin: 10/22/22 22:04 Dose: 13 units Documented By: AKANKSHA Co-signed By: LAT Admin: 10/22/22 08:56 Dose: 13 units Documented By: LOUISA Co-signed By: KRISTINEA Admin: 10/21/22 21:24 Dose: Not Given Documented By: AKANKSHA Metoprolol Succinate (Metoprolol Succ 50mg Ext Rel Tab) 200 mg PO DAILY NIHARIKA Stop: 11/21/22 08:59 Last Admin: 10/23/22 08:30 Dose: 200 mg Documented By: Admin: 10/22/22 08:58 Dose: 200 mg Documented By: RRR Montelukast Sodium (Montelukast Sodium 10 Mg Tablet) 10 mg PO DAILY NIHARIKA Stop: 11/21/22 08:59 Last Admin: 10/23/22 08:30 Dose: 10 mg Documented By: Admin: 10/22/22 08:58 Dose: 10 mg Documented By: RRR Pantoprazole Sodium (Pantoprazole 40 Mg Tab) 40 mg PO BID NIHARIKA Stop: 11/20/22 20:59 Last Admin: 10/23/22 20:54 Dose: 40 mg Documented By: Admin: 10/23/22 08:30 Dose: 40 mg Documented By: Admin: 10/22/22 21:39 Dose: 40 mg Documented By: Admin: 10/22/22 08:59 Dose: 40 mg Documented By: Admin: 10/21/22 21:34 Dose: 40 mg Documented By: AKANKSHA Venlafaxine HCl (Venlafaxine Hcl Xr 37.5 Mg Capxr) 37.5 mg PO HS NIHARIKA Stop: 11/20/22 20:59 Last Admin: 10/23/22 20:55 Dose: 37.5 mg Documented By: Admin: 10/22/22 21:39 Dose: 37.5 mg Documented By: Admin: 10/21/22 21:34 Dose: 37.5 mg Documented By: AKANKSHA Vitamin D (Cholecalciferol 1,000 Units 25 Mcg Tab) 2,000 units PO QAM NIHARIKA Stop: 11/21/22 08:59 Last Admin: 10/23/22 08:29 Dose: 2,000 units Documented By: Admin: 10/22/22 08:57 Dose: 2,000 units Documented By: RRR Warfarin Sodium (Warfarin Sod 4 Mg Tab) 4 mg PO DAILY@1600 NIHARIKA Stop: 11/21/22 15:59 Last Admin: 10/23/22 15:28 Dose: 4 mg Documented By: Admin: 10/22/22 16:53 Dose: 4 mg Documented By: RRR Discontinued Medications Acetaminophen (Acetaminophen 500 Mg Tab) 1,000 mg PO NOW STA Stop: 10/21/22 14:16 Last Admin: 10/21/22 14:36 Dose: 1,000 mg Documented By: MOLINA Sodium Chloride (Nss 1000ml) 1,000 mls @ 125 mls/hr IV .Q8H STA Stop: 10/21/22 20:50 Last Infusion: 10/21/22 21:24 Dose: 0 mls/hr Documented By: Admin: 10/21/22 13:12 Dose: 125 mls/hr Documented By: CRISTI Cefepime HCl (Maxipime) 2,000 mg in 20 mls @ 5 mls/min IV NOW STA; Protocol Stop: 10/21/22 13:54 Last Admin: 10/21/22 14:37 Dose: 5 mls/min Documented By: MOLINA Sodium Chloride (Nss 1000ml) 1,300 mls @ 999 mls/hr IV .Q1H19M ONE Stop: 10/21/22 16:10 Last Infusion: 10/21/22 18:25 Dose: 0 mls/hr Documented By: Admin: 10/21/22 15:31 Dose: 999 mls/hr Documented By: Discharge Plan Visit Data Chief Complaint: Fever Stated Complaint: FEVER, LETHARGY ED Provider: Nicole Herzog Discharge Problem: Fever, Hypoxia Patient Disposition: Admitted As Inpatient Discharge Instructions Interventions: ED Discharge Assessment Last Done: 10/21/22 17:31
[2022-10-24] MEDS ORDERED: CEFEPIME 2,000 MG in SYRINGE 0 ML IV SCH (12:45)
[2022-10-24] MEDS: CEFEPIME 1,000 MG in SYRINGE 0 ML IV SCH (13:49)
[2022-10-24] MEDS: DOXYCYCLINE HYCLATE 100 MG in DEXTROSE 5% 100 ML IV SCH (13:50)
[2022-10-24] MEDS: WARFARIN SOD 4 MG TAB PO SCH (15:51)
[2022-10-24] MEDS: VENLAFAXINE HCL XR 37.5 MG CAPXR PO SCH (20:53)
[2022-10-24] MEDS: GABAPENTIN 300 MG CAP PO SCH (20:53)
[2022-10-25] MEDS: CEFEPIME 1,000 MG in SYRINGE 0 ML IV SCH ×2 (01:45→13:33)
[2022-10-25] MEDS: DOXYCYCLINE HYCLATE 100 MG in DEXTROSE 5% 100 ML IV SCH ×2 (01:46→13:34)
[2022-10-25] MEDS: busPIRone 5 MG TAB PO PRN (03:34)
[2022-10-25 06:49] LABS: BUN Creatinine Ratio 23.7 (10-20); Calcium 9.8 mg/dl (8.6-10.3); Creatinine Clr Calc Pharmacy 32.1 ml/min; Est GFR (African American) 35.9 ml/min; Est GFR (Non-African American) 30.9 ml/min; Potassium 3.8 mmol/L (3.5-5.1)
[2022-10-25 07:22] LABS: INR 1.5 (0.9-1.1); Prothrombin Time 16.1 Seconds (9.0-12.0)
--- NOTE | 2022-10-25 08:08 | Hospitalist Progress Note ---
Date of Service October 25, 2022 Assessment & Plan (1) Fever: Plan: Per admitting provider w/ addendum Patient is 87 y/o F with PMH nonischemic cardiomyopathy, s/p ICD, paroxysmal atrial fibrillation anticoagulated on warfarin, history of cardioversion, DM II, HTN, dyslipidemia, CKD III-IV, rheumatoid arthritis presented to ER from [facility] for fever today In ER T: 38.6C oral. WBC: 23.8 K , procalcitonin: 0.7. UA negat. and ucultx + for mixed romulo, ? probably skin romulo, poss. UTI? Biofire resp. - negat. In ER given 1300ml NSS, cefepime Lactate: 2.2 -->1.5 Blood cultures negat. in 48 hrs CXR: No acute abnormalities and in particular no radiographic evidence of pneumonia. CT chest: No acute abnormalities and in particular no evidence of airspace opacities. Interstitial fibrotic changes with pulmonary hypertension. Denies N/V/D, abdominal pain. monitor CBC, CMP in a.m. Per admitting provider: 1. sirs rule out sepsis, possibly 2/2 UTI 2. possible RA flare 3. hypoxia 4. pulmonary fibrosis 5. morbid obesity There is no clear infectious cause at this time. Awaiting blood cultures. She does mention swollen/painful wrists for the past week and may be suffering from an RA flare or other cause of SIRS syndrome. There is no prior evidence in the outpatient or inpatient record reviews that reveal a history of pulmonary fibrosis or a workup for it. She has a h/o NICM and does not appear fluid overloaded at this time. ICD is in place. Echo obtained with elevated trop and her history. Will trend CBC in am and continue monitoring for clinical improvement on current therapy. Echo obtained EF 60 to 65%. Mild concentric LVH. Mild mitral annular calcification. Mild mitral regurg. Aortic valve sclerosis mild, without significant aortic valvular stenosis. Mild tricuspid regurg. Estimated systolic pulmonary pressure is 48 mmHg. Grade 1 diastolic dysfunction. Compared to prior study, there is no significant change. 10/22 White blood cell count continues to be elevated She is now afebrile continue cefepime, added doxycycline Continue to closely monitor, and follow blood cultures Encouraged incentive spirometry 10/23 Pt clinically much improved. She is currently on RA saturating 96%, afebrile, feeling well overall. WBC elevated but improved. 10/24 patient is afebrile, and breathing comfortably on room air. WBC normalized now. Source of infection unclear, however responded well to antibiotics. Urine culture showed mixed romulo, and pt has prior history of UTI, therefore possible UTI. 10/25 Pt continues to do well. Afebrile and on RA. Plan to DC, CM involved. (2) Hypoxia: Plan: Noted to be hypoxic at 87% on room air at [facility]. In ER 88% on room air up to 95% on 3 L via nasal cannula Chest x-ray and CT chest scan without infiltrate. CT chest shows interstitial fibrotic changes Supplemental oxygen Incentive spirometry 10/23 Resolved - Currently on RA and saturating 96% (3) Elevated troponin: Plan: Initial high-sensitivity troponin: 14,likely demand ischemia, secondary to above EKG paced rhythm Patient without chest pain or shortness of breath Trended troponin echo obtained - w/o any significant changes (4) Non-ischemic cardiomyopathy: (5) Chronic systolic congestive heart failure: (6) Biventricular ICD (implantable cardioverter-defibrillator) in place: Plan: S/p ICD in 2015 Echo 2020: EF: 55-60%, grade 1 diastolic dysfunction Hold Lasix and spironolactone and reevaluate tomorrow (7) Paroxysmal atrial fibrillation: Plan: Chronically anticoagulated on warfarin INR: 2.7 Continue warfarin, metoprolol succinate (8) DMII (diabetes mellitus, type 2): Plan: A1c: 7.0 on 07/23/2022 Hold home insulin Basal bolus insulin per protocol A1c 7.4% (9) Stage III chronic kidney disease: Plan: Stage III-IV Cr: 1.75. Baseline 1.7-2 (10) Rheumatoid arthritis: Plan: CRP 1.7 (elev), ESR (9 normal) DDx: RA flare DVT Prophylaxis - warfarin. DNR/DNI as per discussion with pt Follows with Dr Gasca at [facility] for routine care Admission and Anticipated Discharge Date Admission Date: October 21, 2022 Subjective Pt seen in follow up of fever, hypoxia Currently laying in bed, in no acute distress, resting Breathing on RA Currently denies any fevers chills chest pain shortness of breath, denies any cough, denies abdominal pain nausea diarrhea Pt' s son at the bedside. WBC normalized yesterday. Plan for DC, CM involved. Review of Systems Review of Systems: All systems reviewed & are unremarkable except as noted in Subjective Physical Exam Physical Exam: General: elderly F , obese, in NAD, on RA Head: normocephalic, atraumatic Eyes: conjunctiva non-injected, anicteric ENT: normal inspection external ears, nose, mucous membranes moist Neck: supple Lungs: no respiratory distress, CTAB, no wheezing/rhonchi CV: RRR, no murmur Abd: normal BS, soft, non-tender Ext: bilateral lower legs large but without pitting edema, no joint erythema noted Neuro: A&O x 3, normal affect, answers appropriately, speech fluent, moves extremities Skin: warm, dry Results & Data Results & Data Vital Signs (Past 12 Hours) Vital Signs Temp Pulse Pulse Resp BP BP Pulse Ox 10/25/22 07:15 36.4 C L 82 18 160/85 H 96 10/25/22 06:01 83 10/25/22 03:29 36.5 C 79 18 157/88 H 93 10/24/22 22:06 81 10/24/22 23:15 36.6 C 84 18 157/89 H 95 O2 Del Method 10/25/22 07:15 Room Air 10/25/22 06:01 10/25/22 03:29 Room Air 10/24/22 22:06 10/24/22 23:15 Room Air Laboratory Results 10/25/22 10/25/22 10/25/22 Range/Units 11:31 07:37 05:38 PT (9.0-12.0) Seconds INR (0.9-1.1) Sodium 141 (136-145) mmol/L Potassium 3.8 (3.5-5.1) mmol/L Chloride 104 (98-107) mmol/L Carbon Dioxide 31 (21-32) mmol/L Anion Gap 6 (3-11) BUN 36 H (6-23) mg/dl Creatinine 1.52 H (0.6-1.2) mg/dl Est Cr Clr Drug Dosing 32.1 ml/min Est GFR ( Amer) 35.9 ml/min Est GFR (Non-Af Amer) 30.9 ml/min BUN/Creatinine Ratio 23.7 H (10-20) Glucose 117 H (70-99(Fasting)) mg/dl POC Glucose 158 H 111 H (70-99) mg/dl Calcium 9.8 (8.6-10.3) mg/dl 10/25/22 10/24/22 10/24/22 Range/Units 05:38 20:30 16:26 PT 16.1 H (9.0-12.0) Seconds INR 1.5 H (0.9-1.1) Sodium (136-145) mmol/L Potassium (3.5-5.1) mmol/L Chloride (98-107) mmol/L Carbon Dioxide (21-32) mmol/L Anion Gap (3-11) BUN (6-23) mg/dl Creatinine (0.6-1.2) mg/dl Est Cr Clr Drug Dosing ml/min Est GFR ( Amer) ml/min Est GFR (Non-Af Amer) ml/min BUN/Creatinine Ratio (10-20) Glucose (70-99(Fasting)) mg/dl POC Glucose 98 95 (70-99) mg/dl Calcium (8.6-10.3) mg/dl Medications Administered Current Inpatient Medications Acetaminophen (Acetaminophen 325 Mg Tab) 650 mg PO Q4H PRN PRN Reason: Pain or Fever Stop: 11/20/22 17:48 Last Admin: 10/23/22 23:23 Dose: 650 mg Hydrocodone Bitart/Acetaminophen (Hydrocodone/Acetamophen 5/325mg Tab) 1 tab PO Q4 PRN PRN Reason: Severe Pain (Scale Score 7-10) Stop: 11/04/22 17:48 Atorvastatin Calcium (Atorvastatin 10 Mg Tab) 10 mg PO DAILY NIHARIKA Stop: 11/21/22 08:59 Last Admin: 10/24/22 08:00 Dose: 10 mg Buspirone HCl (Buspirone 5 Mg Tab) 5 mg PO BID PRN PRN Reason: anxiety Stop: 11/20/22 17:48 Last Admin: 10/25/22 03:34 Dose: 5 mg Calcitriol (Calcitriol 0.25 Mcg Capsule) 0.25 mcg PO DAILY NIHARIKA Stop: 11/21/22 08:59 Last Admin: 10/24/22 08:00 Dose: 0.25 mcg Dextrose (Dextrose 50% 50 Ml Syringe) 25 - 50 ml IV UD PRN; Protocol PRN Reason: Hypoglycemia Protocol Stop: 11/20/22 17:48 Folic Acid (Folic Acid 1 Mg Tab) 2 mg PO DAILY NIHARIKA Stop: 11/21/22 08:59 Last Admin: 10/24/22 08:00 Dose: 2 mg Gabapentin (Gabapentin 300 Mg Cap) 300 mg PO HS NIHARIKA Stop: 11/20/22 20:59 Last Admin: 10/24/22 20:53 Dose: 300 mg Gabapentin (Gabapentin 100 Mg Cap) 100 mg PO BID@0900,1400 NIHARIKA Stop: 11/21/22 08:59 Last Admin: 10/24/22 13:49 Dose: 100 mg Glucagon (Glucagon For Inj 1 Mg Vial) 1 mg SQ UD PRN; Protocol PRN Reason: Hypoglycemia Protocol Stop: 11/20/22 17:48 Glucose (Glucose 10 Tab/Tube) 4 - 8 tab PO UD PRN; Protocol PRN Reason: Hypoglycemia Treatment Stop: 11/20/22 17:48 Glucose (Glucose 40% Gel 15 Gm Tube) 15 - 30 gm PO UD PRN; Protocol PRN Reason: Hypoglycemia Protocol Stop: 11/20/22 17:48 Doxycycline Hyclate 100 mg/ (Dextrose) 110 mls @ 50 mls/hr IV Q12H [facility] Stop: 10/26/22 12:59 Last Infusion: 10/25/22 04:59 Dose: Infused Cefepime HCl 1,000 mg/ Syringe 10 mls @ 5 mls/min IV Q12H [facility]; Protocol Stop: 10/26/22 12:59 Last Admin: 10/25/22 01:45 Dose: 5 mls/min Insulin Aspart (Insulin Aspart Per Unit Charge) 0 units SC ACHS NIHARIKA Stop: 11/20/22 20:59 Last Admin: 10/24/22 20:53 Dose: Not Given Insulin Glargine (Lantus Per Unit Charge) 13 units SQ BID NIHARIKA Stop: 11/20/22 20:59 Last Admin: 10/24/22 20:52 Dose: 13 units Metoprolol Succinate (Metoprolol Succ 50mg Ext Rel Tab) 200 mg PO DAILY NIHARIKA Stop: 11/21/22 08:59 Last Admin: 10/24/22 08:00 Dose: 200 mg Miscellaneous (Carbohydrates For Hypoglycemia ) 15 - 30 gm PO UD PRN PRN Reason: Hypoglycemia Protocol Stop: 11/20/22 17:48 Montelukast Sodium (Montelukast Sodium 10 Mg Tablet) 10 mg PO DAILY NIHARIKA Stop: 11/21/22 08:59 Last Admin: 10/24/22 08:01 Dose: 10 mg Pantoprazole Sodium (Pantoprazole 40 Mg Tab) 40 mg PO BID NIHARIKA Stop: 11/20/22 20:59 Last Admin: 10/24/22 20:54 Dose: 40 mg Polyethylene Glycol (Polyethylene (Miralax) 17 Gm Pack) 17 gm PO DAILY PRN PRN Reason: Constipation Stop: 11/20/22 17:48 Venlafaxine HCl (Venlafaxine Hcl Xr 37.5 Mg Capxr) 37.5 mg PO HS [facility] Stop: 11/20/22 20:59 Last Admin: 10/24/22 20:53 Dose: 37.5 mg Vitamin D (Cholecalciferol 1,000 Units 25 Mcg Tab) 2,000 units PO QAM NIHARIKA Stop: 11/21/22 08:59 Last Admin: 10/24/22 08:00 Dose: 2,000 units Warfarin Sodium (Warfarin Sod 4 Mg Tab) 4 mg PO DAILY@1600 NIHARIKA Stop: 11/21/22 15:59 Last Admin: 10/24/22 15:51 Dose: 4 mg
[2022-10-25] MEDS: INSULIN ASPART PER UNIT CHARGE SC SCH ×4 (08:11→21:25)
[2022-10-25] MEDS: LANTUS PER UNIT CHARGE SQ SCH ×2 (08:12→21:23)
[2022-10-25] MEDS: GABAPENTIN 100 MG CAP PO SCH ×2 (08:14→13:33)
[2022-10-25] MEDS: PANTOprazole 40 MG TAB PO SCH ×2 (08:14→20:05)
[2022-10-25] MEDS: CHOLECALCIFEROL 1,000 UNITS 25 MCG TAB PO SCH (08:14)
[2022-10-25] MEDS: METOPROLOL SUCC 50MG EXT REL TAB PO SCH (08:14)
[2022-10-25] MEDS: ATORVASTATIN 10 MG TAB PO SCH (08:14)
[2022-10-25] MEDS: FOLIC ACID 1 MG TAB PO SCH (08:14)
[2022-10-25] MEDS: MONTELUKAST SODIUM 10 MG TABLET PO SCH (08:14)
[2022-10-25] MEDS: CALCITRIOL 0.25 MCG CAPSULE PO SCH (08:14)
[2022-10-25] MEDS: WARFARIN SOD 4 MG TAB PO SCH (14:54)
[2022-10-25] MEDS: FUROSEMIDE 20 MG TAB PO SCH (14:54)
[2022-10-25] MEDS: VENLAFAXINE HCL XR 37.5 MG CAPXR PO SCH (20:05)
[2022-10-25] MEDS: GABAPENTIN 300 MG CAP PO SCH (20:06)
[2022-10-26] MEDS ORDERED: CEFEPIME 2,000 MG in SYRINGE 0 ML IV SCH (01:00)
[2022-10-26] MEDS: DOXYCYCLINE HYCLATE 100 MG in DEXTROSE 5% 100 ML IV SCH (01:18)
[2022-10-26] MEDS: ACETAMINOPHEN 325 MG TAB PO PRN (05:10)
[2022-10-26 06:37] LABS: BUN Creatinine Ratio 25.6 (10-20); Creatinine Clr Calc Pharmacy 29.7 ml/min; Est GFR (African American) 32.7 ml/min; Est GFR (Non-African American) 28.2 ml/min
[2022-10-26 07:12] LABS: INR 1.5 (0.9-1.1); Prothrombin Time 16.2 Seconds (9.0-12.0)
[2022-10-26] MEDS: INSULIN ASPART PER UNIT CHARGE SC SCH ×2 (08:34→11:49)
[2022-10-26] MEDS: LANTUS PER UNIT CHARGE SQ SCH (08:35)
[2022-10-26] MEDS: FOLIC ACID 1 MG TAB PO SCH (08:36)
[2022-10-26] MEDS: MONTELUKAST SODIUM 10 MG TABLET PO SCH (08:36)
[2022-10-26] MEDS: METOPROLOL SUCC 50MG EXT REL TAB PO SCH (08:36)
[2022-10-26] MEDS: GABAPENTIN 100 MG CAP PO SCH (08:36)
[2022-10-26] MEDS: FUROSEMIDE 20 MG TAB PO SCH (08:36)
[2022-10-26] MEDS: PANTOprazole 40 MG TAB PO SCH (08:36)
[2022-10-26] MEDS: CHOLECALCIFEROL 1,000 UNITS 25 MCG TAB PO SCH (08:36)
[2022-10-26] MEDS: ATORVASTATIN 10 MG TAB PO SCH (08:36)
[2022-10-26] MEDS: CALCITRIOL 0.25 MCG CAPSULE PO SCH (08:36)
[2022-10-26] MEDS ORDERED: ADVANCED PROBIOTIC 1250 MG CAPSULE PO SCH (09:45)
--- NOTE | 2022-10-26 10:06 | Discharge Summary ---
Date of Service October 26, 2022 Admission HPI Per Admitting Provider Patient is 87 y/o F with PMH nonischemic cardiomyopathy, s/p ICD, paroxysmal atrial fibrillation anticoagulated on warfarin, history of cardioversion, DM II, HTN, dyslipidemia, CKD III-IV, rheumatoid arthritis presented to ER for fever. Patient from [facility]. Staff reports today noticed patient had chills and was clammy and that patient reported increased joint pain. It is reported patient had pulse ox of 87% on RA today and was referred to ER. Patient states yesterday had mild frontal NGUYEN. Denies current NGUYEN. States has chronic diffuse joint pain. Patient states that approximately one week ago had some swelling to bilateral wrists and wrists felt hot and more painful. Reports urinary frequency but unsure if secondary to taking diuretic. Patient self transfers, but primarily not ambulatory. Patient reports nausea occurs approximately once a month and she thinks its related to not having full bowel movements. Denies any nausea the past week. Denies V/D/C, NGUYEN, dizziness, syncope, vision changes, CP, SOB, orthopnea, palpitations, cough, sore throat, choking, otalgia, rhinorrhea, abdominal pain, paresthesias, increased extremity weakness, extremity edema, rashes, dysuria, hematuria. Admission Exam Per Admitting Provider General: no distress, obese elderly female Head: normocephalic, atraumatic Eyes: conjunctiva non-injected, anicteric ENT: normal inspection external ears, nose, mucous membranes moist Neck: supple, trachea midline Lungs: no respiratory distress on current 3L via NC with sat 93%, +rales bilateral bases, no wheezing/rhonchi CV: RRR, no murmur Abd: normal BS, soft, non-tender Ext: no cyanosis, no calf tenderness; bilateral lower legs large but without pitting edema, no joint erythema noted Neuro: A&O x 3, no focal deficits noted, normal affect Skin: warm, dry Principal Diagnosis Fever, hypoxia, likely secondary to UTI Discharge Exam General: elderly F , obese, in NAD, on RA Head: normocephalic, atraumatic Eyes: conjunctiva non-injected, anicteric ENT: normal inspection external ears, nose, mucous membranes moist Neck: supple Lungs: no respiratory distress, CTAB, no wheezing/rhonchi CV: RRR, no murmur Abd: normal BS, soft, non-tender Ext: bilateral lower legs large but without pitting edema, no joint erythema noted Neuro: A&O x 3, normal affect, answers appropriately, speech fluent, moves extremities Skin: warm, dry Discharge Data Allergies Allergy/AdvReac Type Severity Reaction Status Date / Time amiodarone AdvReac Intermediate gi distress Verified 10/21/22 15:47 aspirin AdvReac Intermediate history of Verified 10/21/22 15:47 ulcers nortriptyline AdvReac Unknown DOESN'T Verified 10/21/22 15:47 REMEMBER Consultations 10/21/22 15:22 ED Decision to Admit Stat Ordered Studies 10/21/22 14:30 CT chest diagnostic wo con Stat FINDINGS: Lungs and pleura: Scarring and bronchiectasis is seen in the dependent portions of the lungs. Calcified granulomata are seen. No airspace opacities are seen. Heart and pericardium: There is cardiomegaly without evidence of pericardial effusion. Vessels: Mild atherosclerotic changes in the aorta and coronary arteries. Pulmonary trunk measures 35 mm in diameter. Mediastinum and radha: Unremarkable. Chest wall and lower neck: Unremarkable. Abdomen: A hiatal hernia is seen. Partial visualization of pneumobilia. Bones: Degenerative changes of the thoracic spine. Old healed rib fractures are seen. IMPRESSION: 1. No acute abnormalities and in particular no evidence of airspace opacities. 2. Interstitial fibrotic changes with pulmonary hypertension. Hospital Course (1) Fever: Per admitting provider w/ addendum Patient is 87 y/o F with PMH nonischemic cardiomyopathy, s/p ICD, paroxysmal atrial fibrillation anticoagulated on warfarin, history of cardioversion, DM II, HTN, dyslipidemia, CKD III-IV, rheumatoid arthritis presented to ER from [facility] for fever today In ER T: 38.6C oral. WBC: 23.8 K , procalcitonin: 0.7. UA negat. and ucultx + for mixed romulo, ? probably skin romulo, poss. UTI? Biofire resp. - negat. In ER given 1300ml NSS, cefepime Lactate: 2.2 -->1.5 Blood cultures negat. in 48 hrs CXR: No acute abnormalities and in particular no radiographic evidence of pneumonia. CT chest: No acute abnormalities and in particular no evidence of airspace opacities. Interstitial fibrotic changes with pulmonary hypertension. Denies N/V/D, abdominal pain. monitor CBC, CMP in a.m. Per admitting provider: 1. sirs rule out sepsis, possibly 2/2 UTI 2. possible RA flare 3. hypoxia 4. pulmonary fibrosis 5. morbid obesity There is no clear infectious cause at this time. Awaiting blood cultures. She does mention swollen/painful wrists for the past week and may be suffering from an RA flare or other cause of SIRS syndrome. There is no prior evidence in the outpatient or inpatient record reviews that reveal a history of pulmonary fibrosis or a workup for it. She has a h/o NICM and does not appear fluid overloaded at this time. ICD is in place. Echo obtained with elevated trop and her history. Will trend CBC in am and continue monitoring for clinical improvement on current therapy. Echo obtained EF 60 to 65%. Mild concentric LVH. Mild mitral annular calcification. Mild mitral regurg. Aortic valve sclerosis mild, without significant aortic valvular stenosis. Mild tricuspid regurg. Estimated systolic pulmonary pressure is 48 mmHg. Grade 1 diastolic dysfunction. Compared to prior study, there is no significant change. 10/22 White blood cell count continues to be elevated She is now afebrile continue cefepime, added doxycycline Continue to closely monitor, and follow blood cultures Encouraged incentive spirometry 10/23 Pt clinically much improved. She is currently on RA saturating 96%, afebrile, feeling well overall. WBC elevated but improved. 10/24 patient is afebrile, and breathing comfortably on room air. WBC normalized now. Source of infection unclear, however responded well to antibiotics. Urine culture showed mixed romulo, and pt has prior history of UTI, therefore possible UTI. 10/25 Pt continues to do well. Afebrile and on RA. Plan to DC, CM involved. (2) Hypoxia: Noted to be hypoxic at 87% on room air at [facility]. In ER 88% on room air up to 95% on 3 L via nasal cannula Chest x-ray and CT chest scan without infiltrate. CT chest shows interstitial fibrotic changes Supplemental oxygen Incentive spirometry 10/23 Resolved - Currently on RA and saturating 96% (3) Elevated troponin: Initial high-sensitivity troponin: 14,likely demand ischemia, secondary to above EKG paced rhythm Patient without chest pain or shortness of breath Trended troponin echo obtained - w/o any significant changes (4) Non-ischemic cardiomyopathy: (5) Chronic systolic congestive heart failure: (6) Biventricular ICD (implantable cardioverter-defibrillator) in place: S/p ICD in 2015 Echo 2020: EF: 55-60%, grade 1 diastolic dysfunction Hold Lasix and spironolactone and reevaluate tomorrow (7) Paroxysmal atrial fibrillation: Chronically anticoagulated on warfarin INR: 2.7 Continue warfarin, metoprolol succinate (8) DMII (diabetes mellitus, type 2): A1c: 7.0 on 07/23/2022 Hold home insulin Basal bolus insulin per protocol A1c 7.4% (9) Stage III chronic kidney disease: Stage III-IV Cr: 1.75. Baseline 1.7-2 (10) Rheumatoid arthritis: CRP 1.7 (elev), ESR (9 normal) DDx: RA flare Follows with Dr Gasca at [facility] for routine care Total Time Total Time Spent Total Time Spent (In Minutes): 40 Discharge Plan Discharge Items Patient Disposition: Personal Fpc Reason For Visit: FEVER Discharge Diagnosis: Fever, hypoxia, likely secondary to UTI Activity: Per Instructions section Non-emergency contact: Primary Care Provider Call non-emergency contact if: you have any medication questions and your symptoms worsen Follow-up/Referrals: [facility] [employer] [Primary Care Provider] - Diet: Carb Consistent or DM2 and Low Sodium (2gm) Addtl Attending Provider Instructions: Follow-up with your primary care physician within 1 week. Follow-up with your other outpatient providers as scheduled. Finish antibiotic treatment with Augmentin and doxycycline for next 2 days, as prescribed. Pending Studies at Discharge: Yes Studies:: final blood cultx results Stand-Alone Forms: [employer], Smoking Cessation Skilled Items Patient informed of condition?: Yes DNR: Yes Discharge Level of Care: Other Communicable Disease: No Discharge Prognosis: Stable Lines: None Urinary Catheter: No Medications and DC Order Prescriptions: New doxycycline hyclate 100 mg capsule 100 mg PO BID 2 Days Qty: 4 0RF amoxicillin-pot clavulanate 875-125 mg tablet 1 tab PO BID 2 Days Qty: 4 0RF Advanced Probiotic 625 mg (10 billion cell) Capsule 2 cap PO DAILY 5 Days Qty: 10 0RF Continued vitamin B complex Tablet 1 tab PO DAILY folic acid 1 mg tablet 2 mg PO DAILY Rx Instructions: per Dr. Gray cholecalciferol (vitamin D3) [Vitamin D3] 50 mcg (2,000 unit) capsule 2,000 unit PO QAM Qty: 90 3RF calcitriol 0.25 mcg capsule 0.25 mcg PO DAILY Qty: 90 3RF (DME) blood sugar diagnostic Strip See Dose Instructions .ROUTE .MEDSUPPLY Qty: 100 5RF Rx Instructions: TEST BLOOD SUGAR THREE TIMES DAILY NEEDED (DME) pen needle, diabetic [BD Ultra-Fine Micro Pen Needle] 32 gauge x 1/4" needle See Dose Instructions .ROUTE .MEDSUPPLY Qty: 100 5RF Dose Instruction: As directed Rx Instructions: Test Four Times Daily OR As directed (DME) walker [facility] See Rx Instructions .MEDSUPPLY Qty: 1 0RF Rx Instructions: Jean Marie jett metoprolol succinate 200 mg tablet extended release 24 hr 200 mg PO DAILY Qty: 90 1RF Patient Comments: QAM pantoprazole 40 mg tablet,delayed release (DR/EC) 40 mg PO BID Qty: 180 3RF (DME) miscellaneous medical supply [facility] See Rx Instructions miscellaneous .MEDSUPPLY Qty: 1 0RF Rx Instructions: Transport wheelchair. As directed furosemide 40 mg tablet 40 mg PO DAILY Qty: 90 3RF Rx Instructions: Take 40 mg daily until you lose 5 pounds, then take 40 mg every other day. start weight 215lbs (DME) blood sugar diagnostic Strip See Rx Instructions .MEDSUPPLY Qty: 100 5RF Rx Instructions: Test blood glucose three times daily insulin lispro [Humalog U-100 Insulin] 100 unit/mL solution 1 sliding scale dose subcut TIDM Rx Instructions: BSG < 150=0 units, 151-175=2u, 176-200=3u, 201-250=4u, 251-300=5u, 301- 350=6u, 351-400=8u meclizine 25 mg tablet 25 mg PO TID PRN (Reason: dizziness) Qty: 30 0RF buspirone 5 mg tablet 5 mg PO BID PRN (Reason: anxiety) Qty: 60 0RF lorazepam 0.5 mg tablet 0.5 mg PO BID PRN (Reason: anxiety) Qty: 60 2RF benzonatate 200 mg capsule 200 mg PO TID PRN (Reason: cough) Qty: 30 0RF atorvastatin 10 mg tablet 10 mg PO DAILY Qty: 90 3RF (DME) FreeStyle Goldie 14 Day [place] Misc See Rx Instructions .MEDSUPPLY Qty: 2 6RF Rx Instructions: Use to test blood glucose 3 times daily (DME) FreeStyle Goldie 14 Day Sensor Kit See Rx Instructions .MEDSUPPLY Qty: 2 6RF Rx Instructions: Use to test blood glucose 3 times daily montelukast 10 mg tablet 10 mg PO DAILY Patient Comments: QPM warfarin [Jantoven] 4 mg Tablet 4 mg PO DAILY@1600 Qty: 0 0RF gabapentin 100 mg Capsule 100 mg PO BID@0900,1400 Qty: 0 0RF gabapentin 300 mg Capsule 300 mg PO HS Qty: 0 0RF polyethylene glycol 3350 [Miralax] 17 gram powder in packet 17 g PO DAILY PRN (Reason: Constipation) spironolactone 25 mg Tablet 25 mg PO 3XWK Rx Instructions: take daily on wednesday,wednesday,wednesday venlafaxine 37.5 mg capsule,extended release 24hr 37.5 mg PO HS Cassy BarneyDary U-300 Insulin 300 unit/mL (1.5 mL) insulin pen 25 unit SUBCUT DAILY acetaminophen 325 mg Tablet 650 mg PO Q6 MDD 3g PRN (Reason: Fever Or Pain) hydrocodone-acetaminophen 5-325 mg tablet 1 tab PO Q4 MDD 3g APAP PRN (Reason: Severe Pain (Scale Score 7-10)) Discharge Orders: Discharge Order (Routine); Ordered 10/26/22 Ordered By: Dharmesh Sierra/Other Patient Handouts: Managing Type 2 Diabetes, Special Foot [facility] for Diabetes Admission Data Admit Date/Time: 10/21/22 15:49 Attending Provider: Dharmesh West Admit Provider: Hortensia Santana Primary Care Provider: Coke [email or web address] Other Providers: Hortensia Santana
[2022-10-26] MEDS ORDERED: WARFARIN SOD 6 MG TAB PO ONE (10:34)
== END 2022-10-26 12:20 | disposition home or self-care (01) | DRG 872 ==
LOC: ED 12:25 → SUATTDRO 15:49 → 2W 15:49

== ENCOUNTER 2023-05-01 14:27 | Inpatient (IN) ==
--- NOTE | 2023-05-01 14:39 | Emergency Department Note ---
History of Present Illness General Chief complaint: Shortness of Breath/Dyspnea Time Seen by Provider: 05/01/23 14:29 History of Present Illness 88-year-old female presents via EMS from [facility]. This morning she was complaining of joint pain she asked for 2 Tylenol because she has a history of rheumatoid arthritis. Patient was also complaining of a cough. Patient was swabbed at the [facility] and is positive for COVID and then they monitored the patient's pulse oximetry and noticed that it may be below 80. They called EMS due to that. Patient has had some cough cold and congestion for the past 2 days. Patient had a prior history of COVID and she states that she had pneumonia at that time 2. Patient denies any chest pain denies any significant shortness of breath typically does not wear oxygen. Patient denies nausea vomiting diarrhea abdominal pain. There are no other complaints. No other mitigating or alleviating factors Home Medications Medication Instructions Recorded Confirmed Type meclizine 25 mg tablet 25 mg PO TID PRN dizziness #30 tabs 12/20/19 04/05/23 Rx cholecalciferol (vitamin D3) 50 2,000 unit PO QAM #90 caps 03/25/20 04/05/23 Rx mcg (2,000 unit) capsule (Vitamin D3) buspirone 5 mg tablet 5 mg PO BID PRN anxiety #60 tabs 04/11/21 04/05/23 Rx calcitriol 0.25 mcg capsule 0.25 mcg PO DAILY #90 caps 05/27/21 04/05/23 Rx vitamin B complex 1 tab PO DAILY 07/02/21 04/05/23 History blood sugar diagnostic #100 ea 09/01/21 12/24/22 Rx pen needle, diabetic 32 gauge x #100 ea 09/01/21 12/24/22 Rx 1/4" (BD Ultra-Fine Micro Pen Needle) folic acid 1 mg tablet 2 mg PO DAILY 09/04/21 04/05/23 History atorvastatin 10 mg tablet 10 mg PO DAILY #90 tabs 09/11/21 04/05/23 Rx flash glucose scanning reader #2 ea 10/16/21 12/24/22 Rx (FreeStyle Goldie 14 Day [place]) flash glucose sensor (FreeStyle #2 ea 10/16/21 12/24/22 Rx Goldie 14 Day Sensor kit) blood sugar diagnostic #100 ea 02/17/22 12/24/22 Rx walker #1 ea 02/17/22 04/05/23 Rx metoprolol succinate 200 mg 200 mg PO DAILY #90 tabs 02/25/22 04/05/23 Rx tablet,extended release 24 hr pantoprazole 40 mg tablet,delayed 40 mg PO BID #180 tabs 02/25/22 04/05/23 Rx release lorazepam 0.5 mg tablet 0.5 mg PO BID PRN anxiety #60 tabs 04/30/22 04/05/23 Rx miscellaneous medical supply #1 ea 05/04/22 12/24/22 Rx montelukast 10 mg tablet 10 mg PO DAILY 05/10/22 04/05/23 History gabapentin 100 mg capsule 100 mg PO BID@0900,1400 #0 caps 05/16/22 04/05/23 Rx gabapentin 300 mg capsule 300 mg PO HS #0 caps 05/16/22 04/05/23 Rx acetaminophen 325 mg tablet 650 mg PO Q6 PRN Fever Or Pain 08/28/22 04/05/23 History furosemide 40 mg tablet 40 mg PO DAILY #90 tabs 08/28/22 04/05/23 Rx hydrocodone 5 mg-acetaminophen 325 1 tab PO Q4 PRN Severe Pain (Scale 08/28/22 04/05/23 History mg tablet Score 7-10) insulin glargine U-300 conc 300 25 unit subcut DAILY 08/28/22 04/05/23 History unit/mL (1.5 mL) subcutaneous pen ([employer] SoloStar U-300 Insulin) polyethylene glycol 3350 17 gram 17 g PO DAILY PRN Constipation 08/28/22 04/05/23 History oral powder packet (Miralax) spironolactone 25 mg tablet 25 mg PO 3XWK 08/28/22 04/05/23 History venlafaxine 37.5 mg 37.5 mg PO HS 08/28/22 04/05/23 History capsule,extended release 24 hr insulin lispro 100 unit/mL 1 sliding scale dose subcut TIDM 09/21/22 04/05/23 History subcutaneous solution (Humalog U-100 Insulin) apixaban 2.5 mg tablet (Eliquis) 2.5 mg PO BID #180 tabs 04/05/23 Rx Allergies Allergy/AdvReac Type Severity Reaction Status Date / Time amiodarone AdvReac Intermediate gi distress Verified 04/05/23 11:04 aspirin AdvReac Intermediate history of Verified 04/05/23 11:04 ulcers nortriptyline AdvReac Unknown DOESN'T Verified 04/05/23 11:04 REMEMBER Past Med/Surg History Medical History Degenerative lumbar spinal stenosis COVID-19 (~03/2021) Chronic diarrhea Diabetic neuropathy Degenerative disc disease Diabetes mellitus, type 2 Hx of squamous cell carcinoma Atrial fibrillation Anxiety and depression CARRILLO (dyspnea on exertion) Sensorineural hearing loss (SNHL) of both ears Chronic systolic congestive heart failure History of basal cell carcinoma Biventricular ICD (implantable cardioverter-defibrillator) in place (2015) [employer]>GETS CHECKED BY DR. VARGAS Dyslipidemia GERD without esophagitis Hypertension PAC (premature atrial contraction) Rheumatoid arthritis Stage III chronic kidney disease Third degree AV block Non-ischemic cardiomyopathy Surgical History History of anesthesia reaction CONFUSION WITH GALLBLADDER REMOVAL, AWARENESS DURING COLONOSCOPY History of esophagogastroduodenoscopy (EGD) History of colonoscopy History of tooth extraction History of cataract surgery RT/LEFT S/P tubal ligation S/P total knee arthroplasty RT/LEFT S/P cholecystectomy Family History Father Heart disease Mother Diabetes Heart disease Myocardial infarction Family history of diabetes mellitus Grandfather (Maternal) Prostate cancer Family history of diabetes mellitus Other Family history non-contributory No family history of adverse response to anesthesia Denies family history of Ovarian cancer Breast cancer Colorectal cancer Social History Smoking Status: Never smoker Second Hand Exposure: No; Do You Dip or Chew Tobacco: No; Hx Alcohol Use: No Hx Substance Use: No Preferred Language: Urdu Communication Ability: Effective Communication Ability Comment: pt does have earring aids Visual Impairment: No Limitations Hearing Ability: Use of Hearing Aid Synthetic Soil Blocks Pulper Required: No Beliefs That Will Affect Care: Alevism Alevism Beliefs: baptist marital status: Single Current Living Situation: Long-Term Current Living Situation Comment: pt lives alone, has daughter and son check on her current occupational status: retired Feels Safe at Home: Yes Childhood Exposure to Second-Hand Smoke: Yes Diet: regular Dental Care, Regularly: Yes Physical Activity Frequency: Does not Exercise Seatbelt Use: always Sunscreen Use: Yes Assistive Devices: Wheelchair Review of Systems A total of 10 systems reviewed and were otherwise negative Constitutional: + fever and + body aches Respiratory: + cough and + dyspnea Physical Exam Vital Signs Vital Signs - 24 hr 05/01/23 14:46 05/01/23 14:46 05/01/23 14:46 Temperature 36.6 C 36.6 C Temperature Source Oral Oral Pulse Rate 80 Pulse Rate [Bilateral] 80 Respiratory Rate 18 18 Respiratory Depth Normal Blood Pressure 121/92 Blood Pressure [Right Arm] 121/92 Blood Pressure Mean 101 Blood Pressure Mean [Right Arm] 101 Pulse Oximetry 97 85 L 97 Oxygen Delivery Method Nasal Cannula Room Air Nasal Cannula Oxygen Flow Rate 3 4 Sepsis Recent Fever Within 48 Hours No Sepsis New/Unexplained Change in Mental Status N/A Sepsis Action Taken by Nursing No Action Required Oxygen Flow Rate - Titration 4 Pulse Oximetry Post Tiitration 97 05/01/23 14:46 05/01/23 14:51 Temperature Temperature Source Pulse Rate 81 Pulse Rate [Bilateral] Respiratory Rate Respiratory Depth Blood Pressure Blood Pressure [Right Arm] Blood Pressure Mean Blood Pressure Mean [Right Arm] Pulse Oximetry 97 Oxygen Delivery Method Nasal Cannula Oxygen Flow Rate 4 Sepsis Recent Fever Within 48 Hours Sepsis New/Unexplained Change in Mental Status Sepsis Action Taken by Nursing Oxygen Flow Rate - Titration Pulse Oximetry Post Tiitration GENERAL: Patient is awake alert in no acute distress patient is resting comfortably and showing no signs of anxiety EYES: The conjunctivae are clear. The pupils are round and reactive. EARS, NOSE, MOUTH AND THROAT: The nose is without any evidence of any deformity. Mucous membranes are moist. Tongue is midline. NECK: The neck is nontender and supple. RESPIRATORY: Normal respiratory effort is noted there is rhonchi present right lung CARDIOVASCULAR: Regular rate and rhythm noted there no murmurs rubs or gallops normal S1 normal S2. GASTROINTESTINAL: The abdomen is soft. Abdomen is nontender. BACK: No midline tenderness or or step-off noted range of motion in flexion extension as well as rotation no signs of muscle spasm noted MUSCULOSKELETAL/EXTREMITIES: There is no evidence of gross deformity full range of motion is noted in the hips and shoulders. SKIN: There is no obvious evidence of any rash. There are no petechiae, pallor or cyanosis noted. NEUROLOGIC: Patient is awake alert and oriented x3 strength is symmetric Course Reevaluation(s) Reevaluation #1: Patient required oxygen 4 L during the emergency department evaluation and if she was taken off of it she would decrease her saturation to 88%. [facility]. The patient is in no respiratory distress at the time of disposition Time: 15:58 Consultations Consultation #1: Case was discussed with [facility] for admission Time: 15:58 Medical Decision Making Medical Records Attestation: I reviewed the patient's medical records. Home Medications Current Medication List: was personally reviewed by me Laboratory Data Attestation: I reviewed the patient's lab results. Lab results interpreted by me patient has an elevated creatinine, elevated blood sugar 05/01/23 14:57 11 14:57 Lab Results 05/01/23 Range/Units 14:57 WBC 8.31 (4.8-10.8) K/ul RBC 4.21 (4.20-5.40) M/uL Hgb 13.2 (12.0-16.0) g/dl Hct 40.7 (37.0-47.0) % MCV 96.7 (80.0-100.0) fL MCH 31.4 (25.0-34.0) pg MCHC 32.4 (32.0-36.0) g/dL RDW Std Deviation 52.3 H (36.4-46.3) fL RDW Coeff of Shai 15.6 H (11.5-14.5) % Plt Count 171 (130-400) K/uL MPV 9.6 (9.4-12.4) fL Immature Gran % (Auto) 0.7 % Neut % (Auto) 70.0 % Lymph % (Auto) 12.8 % [place] % (Auto) 12.0 % Eos % (Auto) 4.0 % Baso % (Auto) 0.5 % Neut # (Auto) 5.82 (1.40-6.50) K/uL Lymph # (Auto) 1.06 L (1.20-3.40) K/uL [place] # (Auto) 1.00 H (0.11-0.59) K/uL Eos # (Auto) 0.33 (0.00-0.50) K/uL Baso # (Auto) 0.04 (0.00-0.20) K/uL Immature Gran # (Auto) 0.06 (0.01-0.20) K/uL PT 11.9 (9.0-12.0) Seconds INR 1.1 (0.9-1.1) APTT 26.4 (21.0-31.0) Seconds PTT Ratio 0.9 Sodium 139 (136-145) mmol/L Potassium 4.0 (3.5-5.1) mmol/L Chloride 99 (98-107) mmol/L Carbon Dioxide 34 H (21-32) mmol/L Anion Gap 6 (3-11) BUN 37 H (6-23) mg/dl Creatinine 2.10 H (0.6-1.2) mg/dl Est Cr Clr Drug Dosing Not Reportable Est GFR ( Amer) 24.1 ml/min Est GFR (Non-Af Amer) 20.8 ml/min BUN/Creatinine Ratio 17.6 (10-20) Glucose 164 H (70-99(Fasting)) mg/dl Lactate 1.7 (0.4-2.0) mmol/L Calcium 10.1 (8.6-10.3) mg/dl Magnesium 1.9 (1.7-2.4) mg/dl Total Bilirubin 0.5 (0.2-1.0) mg/dl Direct Bilirubin 0.1 (0-0.2) mg/dl AST 30 (13-39) U/L ALT 28 (7-52) U/L Alkaline Phosphatase 82 (34-104) U/L Troponin I High Sens 9.2 (0-14) pg/ml Total Protein 7.0 (6.0-8.3) gm/dl Albumin 4.2 (3.4-5.0) gm/dl Imaging Data Attestation: I personally reviewed and interpreted this imaging study as follows: My Impression: Chest x-ray interpreted by me slight increased markings bilaterally, pacemaker is present ECG Data Attestation: I personally reviewed and interpreted this ECG as follows: Additional Comments: EKG interpreted by me paced rhythm rate of 85, no obvious ST segment elevation or depression, right axis deviation Telemetry was ordered by me, interpreted as paced rhythm rate of 85 MDM Narrative Medical decision making differential diagnosis includes sepsis, pneumonia, COVID, hypoxia, metabolic derangement Plan is to check sepsis labs, COVID swab, monitor pulse oximetry The EMS squad gave me bedside report regarding the patient's presentation I have reviewed the [facility] transfer notes of today and their treatment of the patient with COVID, giving her Tylenol and monitoring her pulse oximetry Patient is COVID-positive with hypoxia is currently requiring oxygen. Patient will be admitted for further evaluation and treatment. Patient does not appear to be septic at this time. Patient's not septic shock at the time of admission. Patient has a normal white blood cell count normal lactate normal procalcitonin Impression & Plan COVID-19, Hypoxia Discharge Plan Visit Data Chief Complaint: Shortness of Breath/Dyspnea ED Provider: Abner Boggs Discharge Problem: COVID-19, Hypoxia Patient Disposition: Admitted As Inpatient Forms Stand Alone Forms: My [facility] Prescriptions Prescriptions: No Action vitamin B complex Tablet 1 tab PO DAILY folic acid 1 mg tablet 2 mg PO DAILY Rx Instructions: per Dr. Gray cholecalciferol (vitamin D3) [Vitamin D3] 50 mcg (2,000 unit) capsule 2,000 unit PO QAM Qty: 90 3RF calcitriol 0.25 mcg capsule 0.25 mcg PO DAILY Qty: 90 3RF (DME) blood sugar diagnostic Strip See Dose Instructions .ROUTE .MEDSUPPLY Qty: 100 5RF Rx Instructions: TEST BLOOD SUGAR THREE TIMES DAILY NEEDED (DME) pen needle, diabetic [BD Ultra-Fine Micro Pen Needle] 32 gauge x 1/4" needle See Dose Instructions .ROUTE .MEDSUPPLY Qty: 100 5RF Dose Instruction: As directed Rx Instructions: Test Four Times Daily OR As directed (DME) walker Mis See Rx Instructions .MEDSUPPLY Qty: 1 0RF Rx Instructions: Jean Marie jett metoprolol succinate 200 mg tablet extended release 24 hr 200 mg PO DAILY Qty: 90 1RF Patient Comments: QAM pantoprazole 40 mg tablet,delayed release (DR/EC) 40 mg PO BID Qty: 180 3RF (DME) miscellaneous medical supply Misc See Rx Instructions miscellaneous .MEDSUPPLY Qty: 1 0RF Rx Instructions: Transport wheelchair. As directed furosemide 40 mg tablet 40 mg PO DAILY Qty: 90 3RF Rx Instructions: Take 40 mg daily until you lose 5 pounds, then take 40 mg every other day. start weight 215lbs Eliquis 2.5 mg tablet 2.5 mg PO BID Qty: 180 3RF (DME) blood sugar diagnostic Strip See Rx Instructions .MEDSUPPLY Qty: 100 5RF Rx Instructions: Test blood glucose three times daily insulin lispro [Humalog U-100 Insulin] 100 unit/mL solution 1 sliding scale dose subcut TIDM Rx Instructions: BSG < 150=0 units, 151-175=2u, 176-200=3u, 201-250=4u, 251-300=5u, 301- 350=6u, 351-400=8u meclizine 25 mg tablet 25 mg PO TID PRN (Reason: dizziness) Qty: 30 0RF buspirone 5 mg tablet 5 mg PO BID PRN (Reason: anxiety) Qty: 60 0RF lorazepam 0.5 mg tablet 0.5 mg PO BID PRN (Reason: anxiety) Qty: 60 2RF atorvastatin 10 mg tablet 10 mg PO DAILY Qty: 90 3RF (DME) FreeStyle Goldie 14 Day [place] Misc See Rx Instructions .MEDSUPPLY Qty: 2 6RF Rx Instructions: Use to test blood glucose 3 times daily (DME) FreeStyle Goldie 14 Day Sensor Kit See Rx Instructions .MEDSUPPLY Qty: 2 6RF Rx Instructions: Use to test blood glucose 3 times daily montelukast 10 mg tablet 10 mg PO DAILY Patient Comments: QPM gabapentin 100 mg Capsule 100 mg PO BID@0900,1400 Qty: 0 0RF gabapentin 300 mg Capsule 300 mg PO HS Qty: 0 0RF polyethylene glycol 3350 [Miralax] 17 gram powder in packet 17 g PO DAILY PRN (Reason: Constipation) spironolactone 25 mg Tablet 25 mg PO 3XWK Rx Instructions: take daily on wednesday,wednesday,wednesday venlafaxine 37.5 mg capsule,extended release 24hr 37.5 mg PO HS [employer] SoloStar U-300 Insulin 300 unit/mL (1.5 mL) insulin pen 25 unit SUBCUT DAILY acetaminophen 325 mg Tablet 650 mg PO Q6 MDD 3g PRN (Reason: Fever Or Pain) hydrocodone-acetaminophen 5-325 mg tablet 1 tab PO Q4 MDD 3g APAP PRN (Reason: Severe Pain (Scale Score 7-10)) [facility]errals [facility] -
[2023-05-01 15:19] LABS: Basophils # (auto) 0.04 K/uL (0.00-0.20); Basophils % (auto) 0.5 %; Eosinophils # (auto) 0.33 K/uL (0.00-0.50); Hematocrit (blood only) 40.7 % (37.0-47.0); Hemoglobin 13.2 g/dl (12.0-16.0); Immature Granulocytes # (auto) 0.06 K/uL (0.01-0.20); Immature Granulocytes % (auto) 0.7 %; Lymphocytes # (auto) 1.06 K/uL (1.20-3.40); Lymphocytes % (auto) 12.8 %; Mean Corpuscular Hemoglobin 31.4 pg (25.0-34.0); Mean Corpuscular Hgb Conc 32.4 g/dL (32.0-36.0); Mean Corpuscular Volume 96.7 fL (80.0-100.0); Mean Platelet Volume 9.6 fL (9.4-12.4); Neutrophils # (auto) 5.82 K/uL (1.40-6.50); Platelet Count 171 K/uL (130-400); RDW Coefficient of Variation 15.6 % (11.5-14.5); RDW Standard Deviation 52.3 fL (36.4-46.3); Red Blood Count 4.21 M/uL (4.20-5.40); White Blood Count 8.31 K/ul (4.8-10.8)
[2023-05-01 15:45] LABS: Alanine Aminotransferase 28 U/L (7-52); Albumin Level 4.2 gm/dl (3.4-5.0); Alkaline Phosphatase 82 U/L (34-104); Anion Gap 6 (3-11); Aspartate Aminotransferase 30 U/L (13-39); BUN Creatinine Ratio 17.6 (10-20); Bilirubin Direct 0.1 mg/dl (0-0.2); Bilirubin,Total 0.5 mg/dl (0.2-1.0); Blood Urea Nitrogen 37 mg/dl (6-23); Calcium 10.1 mg/dl (8.6-10.3); Carbon Dioxide 34 mmol/L (21-32); Chloride 99 mmol/L (98-107); Est GFR (African American) 24.1 ml/min; Est GFR (Non-African American) 20.8 ml/min; Glucose 164 mg/dl (70-99(Fasting)); Magnesium 1.9 mg/dl (1.7-2.4); Sodium 139 mmol/L (136-145); Troponin I High Sensitivity 9.2 pg/ml (0-14)
[2023-05-01 15:46] LABS: INR 1.1 (0.9-1.1); Partial Thromboplastin Ratio 0.9; Partial Thromboplastin Time 26.4 Seconds (21.0-31.0); Prothrombin Time 11.9 Seconds (9.0-12.0)
--- NOTE | 2023-05-01 16:21 | History & Physical Report ---
Date of Service May 01, 2023 Assessment & Plan (1) COVID-19 in immunocompromised patient: Plan: Patient is vaccinated against novel coronavirus. Acute infections with symptoms starting just yesterday (11-17). No evidence of pneumonia on initial CXR. Con t isolation for 10 days at least. Lives in [facility], so high risk of infection from this community. Cont symptom management as needed. Decadron daily. Flonase daily. Supplemental oxygen-wean as tolerated. (2) Hypoxia: Plan: related to COVID-19 infection. No evidence of acute heart failure with clear CXR. PE considered but thought to be less likely as patient is on apixaban regularly and is not sedentary with symptoms starting only just yesterday. (3) Chronic kidney disease, stage IV (severe): Plan: chronic, stable with creat around 2.1. Cont home medications and monitor for any changes, especially if diarrhea persists. Daily BMP. Cont calcitriol per home regimen. (4) Rheumatoid arthritis: Plan: chronic, stable. Tylenol PRN. Holding MTX at this time. (5) DMII (diabetes mellitus, type 2): Plan: chronic, stable. Cont basal/bolus insulin with stress level 3 given decadron administration. Diabetic diet, and repeat A1C in am. (6) Obstructive sleep apnea of adult: Plan: history of this per records, but states that she never pursued treatment of this and is not interested at this time. (7) Chronic systolic congestive heart failure: Plan: chronic, stable. Appears euvolemic to dry on exam. Cont home medications including Toprol XL, MRA. RADi contraindicated in setting of CKD. Also, pt reports frequent issues with urinating, especially at night. Should have this looked into prior to considering empagliflozin (per GDMT). Follows with Dr. Buchanan ([facility] [place] cardiology) (8) Biventricular ICD (implantable cardioverter-defibrillator) in place: Plan: chronic, stable. h/o low EF. Nonischemic cardiomyopathy. (9) Paroxysmal atrial fibrillation: Plan: Sinus rhythm, paced on EKG. Underwent cardioversion in 2016. Cont apixaban/metoprolol per home regimen. (10) Morbid obesity: Plan: Lifestyle changes for weight loss recommended. DVT proph-TEDs/SCDs/Apixaban DNR as confirmed with patient and her son on admission Disp-to telemetry. Back to [facility] when hypoxia has resolved, likely a few days from now. Encouraged physical activity. PT/OT ordered. I spent a total of 75minutes coordinating, documenting, and providing care for this patient excluding time spent in the performance of separately billed services DO [facility] History of Present Illness Chief Complaint: illness, hypoxia Primary Care Provider: Abner Bowman MD 88-year-old female presents after being found hypoxic at outside half-way. She has a history of nonischemic cardiomyopathy status post ICD paroxysmal atrial fibrillation anticoagulated on warfarin with history of cardioversion, di abetes type 2, hypertension, dyslipidemia, CKD, rheumatoid arthritis who currently resides at [facility]. Per EMS report she was found hypoxic after reporting to syncope asking for Tylenol and reporting having cough, looking ill to staff. COVID swab this morning was positive. On presentation to the ER she was placed on 2 L nasal cannula of oxygen supplementation with improvement. She was later taken off oxygen supplementation and dropped into the high 80s per ER physician. She currently is on 4 L nasal cannula and oxygenating well. Reports covid "very bad" for 3 months last year. Reported generalized body aches at that time. Somewhat feels that way now. Denies joint RA flare at this time or significant pain anywhere. Symptoms started yesterday. Some loose st ool today but up until yesterday no symptoms. Denies appetite changes, states she eats "too well." She denies any SOB or chest pain. +nasal congestion. Son is at bedside and assists with the history. Allergies Allergy/AdvReac Type Severity Reaction Status Date / Time amiodarone AdvReac Intermediate gi distress Verified 04/05/23 11:04 aspirin AdvReac Intermediate history of Verified 04/05/23 11:04 ulcers nortriptyline AdvReac Unknown DOESN'T Verified 04/05/23 11:04 REMEMBER Home Medications Medication Instructions Recorded Confirmed Type meclizine 25 mg tablet 25 mg PO TID PRN dizziness #30 tabs 12/20/19 05/01/23 Rx cholecalciferol (vitamin D3) 50 2,000 unit PO QAM #90 caps 03/25/20 05/01/23 Rx mcg (2,000 unit) capsule (Vitamin D3) buspirone 5 mg tablet 5 mg PO BID PRN anxiety #60 tabs 04/11/21 05/01/23 Rx calcitriol 0.25 mcg capsule 0.25 mcg PO DAILY #90 caps 05/27/21 05/01/23 Rx vitamin B complex 1 tab PO DAILY 07/02/21 05/01/23 History blood sugar diagnostic #100 ea 09/01/21 12/24/22 Rx pen needle, diabetic 32 gauge x #100 ea 09/01/21 12/24/22 Rx 1/4" (BD Ultra-Fine Micro Pen Needle) folic acid 1 mg tablet 2 mg PO DAILY 09/04/21 05/01/23 History atorvastatin 10 mg tablet 10 mg PO DAILY #90 tabs 09/11/21 05/01/23 Rx flash glucose scanning reader #2 ea 10/16/21 12/24/22 Rx (FreeStyle Goldie 14 Day [place]) flash glucose sensor (FreeStyle #2 ea 10/16/21 12/24/22 Rx Goldie 14 Day Sensor kit) blood sugar diagnostic #100 ea 02/17/22 12/24/22 Rx walker #1 ea 02/17/22 04/05/23 Rx metoprolol succinate 200 mg 200 mg PO DAILY #90 tabs 02/25/22 05/01/23 Rx tablet,extended release 24 hr pantoprazole 40 mg tablet,delayed 40 mg PO BID #180 tabs 02/25/22 05/01/23 Rx release lorazepam 0.5 mg tablet 0.5 mg PO BID PRN anxiety #60 tabs 04/30/22 05/01/23 Rx miscellaneous medical supply #1 ea 05/04/22 12/24/22 Rx montelukast 10 mg tablet 10 mg PO DAILY 05/10/22 05/01/23 History gabapentin 100 mg capsule 100 mg PO BID@0900,1400 #0 caps 05/16/22 05/01/23 Rx gabapentin 300 mg capsule 300 mg PO HS #0 caps 05/16/22 05/01/23 Rx acetaminophen 325 mg tablet 650 mg PO Q6 PRN Fever Or Pain 08/28/22 05/01/23 History hydrocodone 5 mg-acetaminophen 325 1 tab PO Q4 PRN Severe Pain (Scale 08/28/22 05/01/23 History mg tablet Score 7-10) insulin glargine U-300 conc 300 25 unit subcut DAILY 08/28/22 05/01/23 History unit/mL (1.5 mL) subcutaneous pen (Toujeo SoloStar U-300 Insulin) polyethylene glycol 3350 17 gram 17 g PO DAILY PRN Constipation 08/28/22 05/01/23 History oral powder packet (Miralax) spironolactone 25 mg tablet 25 mg PO 3XWK 08/28/22 05/01/23 History venlafaxine 37.5 mg 37.5 mg PO HS 08/28/22 05/01/23 History capsule,extended release 24 hr insulin lispro 100 unit/mL 1 sliding scale dose subcut TIDM 09/21/22 05/01/23 History subcutaneous solution (Humalog U-100 Insulin) apixaban 2.5 mg tablet (Eliquis) 2.5 mg PO BID #180 tabs 04/05/23 05/01/23 Rx benzonatate 200 mg capsule 200 mg PO TID PRN Cough 05/01/23 05/01/23 History carbamide peroxide 6.5 % ear drops 5 - 10 drp otic (ear) BID PRN ear 05/01/23 05/01/23 History wax removal furosemide 40 mg tablet 40 mg PO Q2D 05/01/23 05/01/23 History loperamide 2 mg tablet 2 mg PO UD PRN Loose Stool 05/01/23 05/01/23 History (Anti-Diarrheal (loperamide)) methotrexate sodium 2.5 mg tablet 5 mg PO WK 05/01/23 05/01/23 History peg 400-propylene glycol (PF) 0.4 1 drp ophthalmic (eye) TID 05/01/23 05/01/23 History %-0.3 % eye drops in a dropperette (Systane (PF)) Past Med/Surg History Medical History Degenerative lumbar spinal stenosis COVID-19 (~03/2021) Chronic diarrhea Diabetic neuropathy Degenerative disc disease Diabetes mellitus, type 2 Hx of squamous cell carcinoma Atrial fibrillation Anxiety and depression CARRILLO (dyspnea on exertion) Sensorineural hearing loss (SNHL) of both ears Chronic systolic congestive heart failure History of basal cell carcinoma Biventricular ICD (implantable cardioverter-defibrillator) in place (2015) [employer]>GETS CHECKED BY DR. VARGAS Dyslipidemia GERD without esophagitis Hypertension PAC (premature atrial contraction) Rheumatoid arthritis Stage III chronic kidney disease Third degree AV block Non-ischemic cardiomyopathy Surgical History History of anesthesia reaction CONFUSION WITH GALLBLADDER REMOVAL, AWARENESS DURING COLONOSCOPY History of esophagogastroduodenoscopy (EGD) History of colonoscopy History of tooth extraction History of cataract surgery RT/LEFT S/P tubal ligation S/P total knee arthroplasty RT/LEFT S/P cholecystectomy Family History Father Heart disease Mother Diabetes Heart disease Myocardial infarction Family history of diabetes mellitus Grandfather (Maternal) Prostate cancer Family history of diabetes mellitus Other Family history non-contributory No family history of adverse response to anesthesia Denies family history of Ovarian cancer Breast cancer Colorectal cancer Social History Smoking Status: Never smoker Second Hand Exposure: No; Do You Dip or Chew Tobacco: No; Hx Alcohol Use: No Hx Substance Use: No Preferred Language: Serbian Communication Ability: Effective Communication Ability Comment: pt does have earring aids Visual Impairment: No Limitations Hearing Ability: Use of Hearing Aid College Teacher Required: No Beliefs That Will Affect Care: [employer] Beliefs: spiritism marital status: Single Current Living Situation: Group Home Current Living Situation Comment: pt lives alone, has daughter and son check on her current occupational status: retired Feels Safe at Home: Yes Childhood Exposure to Second-Hand Smoke: Yes Diet: regular Dental Care, Regularly: Yes Physical Activity Frequency: Does not Exercise Seatbelt Use: always Sunscreen Use: Yes Assistive Devices: Wheelchair Physical Exam Physical Exam: CONSTITUTIONAL: obese, vitals as above, generally ill-appearing, NAD EYES: PERRL, normal conjunctivae, no scleral icterus ENT: external ear and nose normal, mucous membranes were moist. NECK: trachea midline RESPIRATORY: clear to auscultation bilaterally, no crackles, rales or wheezes, normal respiratory effort CARDIOVASCULAR: regular rate and rhythm, S1 and 2 heard without murmurs, gallops or rubs, no JVD, no peripheral edema, appears euvolemic to dry. CHEST: +ICD to left chest wall. GASTROINTESTINAL: soft, protuberant abdomen, nontender, no guarding. MUSCULOSKELETAL: strength 5/5 throughout, head is normocephalic and atraumatic, SKIN: warm and dry NEUROLOGIC: CN 2-12 grossly intact, no sensory deficit, normal cognition, normal speech, no tremor PSYCHIATRIC: alert cooperative and oriented to person, place and time. Euthymic mood, makes good eye contact, language grossly intact, recent and remote memory grossly intact. Results & Data Results & Data Vital Signs (Past 12 Hours) Vital Signs Temp Pulse Pulse Resp BP BP Pulse Ox 05/01/23 14:51 81 05/01/23 14:46 97 05/01/23 14:46 36.6 C 80 18 121/92 97 05/01/23 14:46 85 L 05/01/23 14:46 36.6 C 80 18 121/92 97 O2 Del Method O2 Flow Rate 05/01/23 14:51 05/01/23 14:46 Nasal Cannula 4 05/01/23 14:46 Nasal Cannula 4 05/01/23 14:46 Room Air 05/01/23 14:46 Nasal Cannula 3 Laboratory Results Short CBC 05/01/23 Range/Units 14:57 WBC 8.31 (4.8-10.8) K/ul Hgb 13.2 (12.0-16.0) g/dl Hct 40.7 (37.0-47.0) % Plt Count 171 (130-400) K/uL BMP 05/01/23 14:57 Sodium 139 Potassium 4.0 Chloride 99 Carbon Dioxide 34 H BUN 37 H Creatinine 2.10 H Glucose 164 H Calcium 10.1 Liver Function 05/01/23 Range/Units 14:57 Total Bilirubin 0.5 (0.2-1.0) mg/dl Direct Bilirubin 0.1 (0-0.2) mg/dl AST 30 (13-39) U/L ALT 28 (7-52) U/L Alkaline Phosphatase 82 (34-104) U/L Albumin 4.2 (3.4-5.0) gm/dl
[2023-05-01] MEDS ORDERED: DEXAMETHASONE SOD INJ 4 MG/ML VIAL IV STA (16:22)
--- NOTE | 2023-05-01 16:43 | XRay Report ---
SINGLE VIEW CHEST CLINICAL HISTORY: Sepsis. FINDINGS: An AP, portable, upright chest radiograph is compared to chest x-ray and chest CT dated 10/12. A 3-lead cardiac AICD is unchanged in position. The heart is enlarged noting atherosclerotic calcification of the thoracic aorta. The pulmonary vasculature is noncongested. Chronic interstitial thickening is similar to previous. There is bibasilar scarring/atelectasis. No airspace consolidation or large pleural effusion is identified. There are scattered calcified granulomas. No pneumothorax i s seen. The skeletal structures are osteopenic. There is chronic posttraumatic deformity of the right proximal humerus. Arthritic change is seen in the shoulders. IMPRESSION: 1. Cardiomegaly and AICD without radiographic evidence of congestive failure. 2. No airspace consolidation or large pleural effusion is identified. ACT 112: Negative or not required by law. Electronically signed by: Carlyle Lovelace M.D. 05/01/2023 4:42 PM
[2023-05-01 17:03] LABS: Influenza A virus by PCR Negative (Neg); Influenza B virus by PCR Negative (Neg); RSV by PCR Negative (Neg)
[2023-05-01 17:04] LABS: SARS CoV2 RNA(COVID-19) Ceph POSITIVE (Negative)
[2023-05-01 18:06] LABS: Appearance Urine Clear (Clear); Bilirubin Urine Negative (Negative); Blood Urine Negative (Negative); Color Urine Yellow; Glucose Urine UA Negative (Negative); Ketones Urine Negative (Negative); Leukocyte Esterase Urine Negative (Negative); Nitrite Urine Negative (Negative); Protein Urine Negative (Negative); Specific Gravity Urine 1.007 (1.000-1.030); Urobilinogen Urine Negative (Negative)
[2023-05-01] MEDS ORDERED: BENZONATATE 100 MG CAPSULE PO PRN (21:53)
[2023-05-01] MEDS ORDERED: GLUCOSE 40% GEL 15 GM TUBE PO PRN (21:53)
[2023-05-01] MEDS ORDERED: DEXTROSE 50% 50 ML SYRINGE IV PRN (21:53)
[2023-05-01] MEDS ORDERED: CARBOHYDRATES FOR HYPOGLYCEMIA PO PRN (21:53)
[2023-05-01] MEDS ORDERED: busPIRone 5 MG TAB PO PRN (21:53)
[2023-05-01] MEDS ORDERED: GLUCOSE 10 TAB/TUBE PO PRN (21:53)
[2023-05-01] MEDS ORDERED: GLUCAGON FOR INJ 1 MG VIAL SQ PRN (21:53)
[2023-05-01] MEDS ORDERED: LORazepam 0.5 MG TAB PO PRN (21:53)
[2023-05-01] MEDS: LANTUS PER UNIT CHARGE SQ SCH (22:43)
[2023-05-01] MEDS: APIXABAN 2.5 MG TAB PO SCH (22:43)
[2023-05-01] MEDS: INSULIN ASPART PER UNIT CHARGE SC SCH (22:43)
[2023-05-01] MEDS: GABAPENTIN 300 MG CAP PO SCH (22:43)
[2023-05-01] MEDS: FLUTICASONE PROPIONATE NA SPR 16 GM BTL NAE SCH (22:43)
[2023-05-01] MEDS: PANTOprazole 40 MG TAB PO SCH (22:45)
[2023-05-01] MEDS: VENLAFAXINE HCL XR 37.5 MG CAPXR PO SCH (22:45)
[2023-05-01] MEDS: ACETAMINOPHEN 325 MG TAB PO PRN (23:53)
[2023-05-02 06:49] LABS: Hematocrit (blood only) 36.6 % (37.0-47.0); Hemoglobin 12.2 g/dl (12.0-16.0); Mean Corpuscular Hemoglobin 31.9 pg (25.0-34.0); Mean Corpuscular Hgb Conc 33.3 g/dL (32.0-36.0); Mean Corpuscular Volume 95.6 fL (80.0-100.0); Mean Platelet Volume 9.8 fL (9.4-12.4); Platelet Count 176 K/uL (130-400); RDW Coefficient of Variation 15.8 % (11.5-14.5); RDW Standard Deviation 52.9 fL (36.4-46.3); Red Blood Count 3.83 M/uL (4.20-5.40); White Blood Count 10.21 K/ul (4.8-10.8)
[2023-05-02 07:06] LABS: Anion Gap 8 (3-11); BUN Creatinine Ratio 16.5 (10-20); Blood Urea Nitrogen 33 mg/dl (6-23); C Reactive Protein < 0.50 mg/dl (0-0.5); Calcium 9.4 mg/dl (8.6-10.3); Carbon Dioxide 31 mmol/L (21-32); Chloride 101 mmol/L (98-107); Creatinine Clr Calc Pharmacy 23.6 ml/min; Est GFR (African American) 25.6 ml/min; Glucose 161 mg/dl (70-99(Fasting)); Potassium 4.1 mmol/L (3.5-5.1); Sodium 140 mmol/L (136-145)
[2023-05-02 07:49] LABS: Estimated Average Glucose 157 mg/dl; Hemoglobin A1C 7.1 % (4.5-5.6)
[2023-05-02] MEDS: PANTOprazole 40 MG TAB PO SCH ×2 (08:39→21:00)
[2023-05-02] MEDS: dexAMETHasone 4 MG TAB PO SCH (08:39)
[2023-05-02] MEDS: MONTELUKAST SODIUM 10 MG TABLET PO SCH (08:39)
[2023-05-02] MEDS: CALCITRIOL 0.25 MCG CAPSULE PO SCH (08:39)
[2023-05-02] MEDS: ATORVASTATIN 10 MG TAB PO SCH (08:39)
[2023-05-02] MEDS: GABAPENTIN 100 MG CAP PO SCH ×2 (08:40→14:11)
[2023-05-02] MEDS: METOPROLOL SUCC 50MG EXT REL TAB PO SCH (08:41)
[2023-05-02] MEDS: FOLIC ACID 1 MG TAB PO SCH (08:41)
[2023-05-02] MEDS: APIXABAN 2.5 MG TAB PO SCH ×2 (08:41→21:01)
[2023-05-02] MEDS: CHOLECALCIFEROL 1,000 UNITS 25 MCG TAB PO SCH (08:41)
[2023-05-02] MEDS: ARTIFICIAL TEARS OP SCH ×3 (08:42→21:01)
[2023-05-02] MEDS ORDERED: FUROSEMIDE 40 MG TAB PO SCH (09:00)
[2023-05-02] MEDS: INSULIN ASPART PER UNIT CHARGE SC SCH ×4 (09:18→20:58)
[2023-05-02] MEDS: LANTUS PER UNIT CHARGE SQ SCH ×2 (09:19→20:57)
--- NOTE | 2023-05-02 19:47 | Hospitalist Progress Note ---
Date of Service May 02, 2023 Assessment & Plan (1) Morbid obesity: (2) COVID-19 in immunocompromised patient: (3) Elevated troponin: (4) Hypoxia: (5) Fever: Plan 88-year-old female with a history of nonischemic cardiomyopathy status post ICD paroxysmal atrial fibrillation anticoagulated on warfarin with history of cardioversion, diabetes type 2, hypertension, dyslipidemia, CKD, rheumatoid arthritis presenting with acute hypoxic respiratory failure in the setting of a covid infection. COVID-19 in immunocompromised patient Found to be hypoxic at personal halfway Patient is vaccinated against novel coronavirus. Acute infection with symptoms starting 04-30 No evidence of pneumonia on initial CXR. Cont isolation for 10 days at least. Cont symptom management as needed. Decadron daily. Flonase daily. Supplemental oxygen-wean as tolerated Hypoxia related to COVID-19 infection. No evidence of acute heart failure with clear CXR. PE considered but thought to be less likely as patient is on apixaban regularly and is not sedentary with symptoms starting only day before presentation Chronic kidney disease, stage IV (severe) chronic, stable with creat around 2.1. Cont home medications and monitor for any changes, especially if diarrhea persists. Daily BMP. Cont calcitriol per home regimen. Rheumatoid arthritis chronic, stable. Tylenol PRN. Holding MTX at this time. DMII (diabetes mellitus, type 2) hgba1c of 7.1 chronic, stable. Cont basal/bolus insulin with stress level 3 given decadron administration. Diabetic diet Obstructive sleep apnea of adult history of this per records, but states that she never pursued treatment of this and is not interested at this time Chronic systolic congestive heart failure chronic, stable. Appears euvolemic to dry on exam Cont home medications including Toprol XL Also, pt reports frequent issues with urinating, especially at night. Should have this looked into prior to considering empagliflozin (per GDMT). Follows with Dr. Buchanan ([facility] [place] cardiology) Biventricular ICD (implantable cardioverter-defibrillator) in place chronic, stable. h/o low EF. Nonischemic cardiomyopathy Paroxysmal atrial fibrillation Sinus rhythm, paced on EKG Underwent cardioversion in 2016 Cont apixaban/metoprolol per home regimen Morbid obesity Lifestyle changes for weight loss recommended. Diet: DMII, low sodium DVT proph-TEDs/SCDs/Apixaban DNR as confirmed with patient and her son on admission Admission and Anticipated Discharge Date Admission Date: May 01, 2023 Subjective Pt seated in a chair at bedside. States she took off the oxygen to latter day. Denied SOB or chest tightness. States she was thirsty. Review of Systems Review of Systems: All systems reviewed & are unremarkable except as noted in Subjective Physical Exam Physical Exam: General: Alert, oriented. No acute distress Skin: No noted rashes or bruises Psych: Appropriate mood and affect Neuro: No gross deficits HEENT: NC/AT Chest: Nontender to palpation. CV: RRR, Normal s1, s2. No murmurs appreciated Resp: Breath sounds clear bilaterally, no increased effort of breathing. Abdomen:Soft, nontender, nondistended. Extremities: +++ edema in lower extremities bilaterally. Results & Data Results & Data Vital Signs (Past 12 Hours) Vital Signs Temp Pulse Resp BP Pulse Ox O2 Del Method O2 Flow Rate 05/02/23 15:00 37.1 C 85 16 133/85 88 L Room Air 05/02/23 11:43 36.4 C L 82 16 151/88 H 93 Room Air 05/02/23 08:00 Nasal Cannula 2 05/02/23 07:32 37.2 C 78 16 139/75 93 Nasal Cannula 1
[2023-05-02] MEDS: FLUTICASONE PROPIONATE NA SPR 16 GM BTL NAE SCH (20:59)
[2023-05-02] MEDS: GABAPENTIN 300 MG CAP PO SCH (21:00)
[2023-05-02] MEDS: VENLAFAXINE HCL XR 37.5 MG CAPXR PO SCH (21:02)
[2023-05-02] MEDS: ACETAMINOPHEN 325 MG TAB PO PRN (21:04)
[2023-05-03 07:26] LABS: Basophils # (auto) 0.01 K/uL (0.00-0.20); Basophils % (auto) 0.1 %; Hematocrit (blood only) 36.9 % (37.0-47.0); Hemoglobin 12.2 g/dl (12.0-16.0); Immature Granulocytes % (auto) 1.5 %; Lymphocytes # (auto) 1.65 K/uL (1.20-3.40); Lymphocytes % (auto) 24.3 %; Mean Corpuscular Hemoglobin 31.7 pg (25.0-34.0); Mean Corpuscular Hgb Conc 33.1 g/dL (32.0-36.0); Mean Corpuscular Volume 95.8 fL (80.0-100.0); Mean Platelet Volume 9.1 fL (9.4-12.4); Monocytes # (auto) 0.62 K/uL (0.11-0.59); Monocytes % (auto) 9.1 %; Neutrophils # (auto) 4.42 K/uL (1.40-6.50); Platelet Count 177 K/uL (130-400); RDW Coefficient of Variation 15.4 % (11.5-14.5); RDW Standard Deviation 52.5 fL (36.4-46.3); Red Blood Count 3.85 M/uL (4.20-5.40)
[2023-05-03] MEDS ORDERED: SPIRONOLACTONE 25 MG TAB PO SCH (09:00)
[2023-05-03] MEDS: MONTELUKAST SODIUM 10 MG TABLET PO SCH (09:26)
[2023-05-03] MEDS: CALCITRIOL 0.25 MCG CAPSULE PO SCH (09:26)
[2023-05-03] MEDS: CHOLECALCIFEROL 1,000 UNITS 25 MCG TAB PO SCH (09:26)
[2023-05-03] MEDS: ATORVASTATIN 10 MG TAB PO SCH (09:26)
[2023-05-03] MEDS: dexAMETHasone 4 MG TAB PO SCH (09:26)
[2023-05-03] MEDS: GABAPENTIN 100 MG CAP PO SCH ×2 (09:26→13:48)
[2023-05-03] MEDS: FOLIC ACID 1 MG TAB PO SCH (09:27)
[2023-05-03] MEDS: ARTIFICIAL TEARS OP SCH ×2 (09:27→13:48)
[2023-05-03] MEDS: METOPROLOL SUCC 50MG EXT REL TAB PO SCH (09:27)
[2023-05-03] MEDS: APIXABAN 2.5 MG TAB PO SCH (09:27)
[2023-05-03] MEDS: PANTOprazole 40 MG TAB PO SCH (09:27)
[2023-05-03 09:34] LABS: Albumin Globulin Ratio 1.6 (0.9-2); Albumin Level 3.9 gm/dl (3.4-5.0); BUN Creatinine Ratio 19.4 (10-20); Bilirubin,Total 0.7 mg/dl (0.2-1.0); Calcium 9.4 mg/dl (8.6-10.3); Creatinine Clr Calc Pharmacy 22.6 ml/min; Est GFR (Non-African American) 20.7 ml/min; Globulin 2.4 gm/dl (2.5-4.0); Magnesium 1.8 mg/dl (1.7-2.4); Phosphorus 3.5 mg/dl (2.5-4.9); Potassium 3.3 mmol/L (3.5-5.1); Total Protein 6.3 gm/dl (6.0-8.3)
[2023-05-03] MEDS: LANTUS PER UNIT CHARGE SQ SCH (09:35)
[2023-05-03] MEDS: INSULIN ASPART PER UNIT CHARGE SC SCH ×2 (09:35→12:49)
[2023-05-03] MEDS ORDERED: POTASSIUM CHLORIDE CRTAB 20 MEQ TABCR PO STA (09:42)
--- NOTE | 2023-05-03 16:12 | Discharge Summary ---
Discharge Summary Date of Service May 03, 2023 Notes For Next Care Provider Close follow up of COVID infection, requiring discharge with 2L of oxygen for use mostly with ambulation Pt received 2 days of Decadron, closely monitor glucose levels Medication Changes From Visit Discharged with: -Flonase nasal spray -albuterol inhaler for wheezing or SOB PRN -Cough syrup (dextromethorphan- guaifenesin) -Oxygen 2L with ambulation Admission HPI Per Admitting Provider 88-year-old female presents after being found hypoxic at outside [facility]. She has a history of nonischemic cardiomyopathy status post ICD paroxysmal atrial fibrillation anticoagulated on warfarin with history of cardioversion, diabetes type 2, hypertension, dyslipidemia, CKD, rheumatoid arthritis who currently resides at [facility]. Per EMS report she was found hypoxic after reporting to syncope asking for Tylenol and reporting having cough, looking ill to staff. COVID swab this morning was positive. On presentation to the ER she was placed on 2 L nasal cannula of oxygen supplementation with improvement. She was later taken off oxygen suppleme ntation and dropped into the high 80s per ER physician. She currently is on 4 L nasal cannula and oxygenating well. Reports covid "very bad" for 3 months last year. Reported generalized body aches at that time. Somewhat feels that way now. Denies joint RA flare at this time or significant pain anywhere. Symptoms started yesterday. Some loose stool today but up until yesterday no symptoms. Denies appetite changes, states she eats "too well." She denies any SOB or chest pain. +nasal congestion. Son is at bedside and assists with the history. Principal Dx & Hospital Course #1 = Principal Diagnosis (1) Morbid obesity: (2) COVID-19 in immunocompromised patient: (3) Elevated troponin: (4) Hypoxia: (5) Fever: Plan 88-year-old female with a history of nonischemic cardiomyopathy status post ICD paroxysmal atrial fibrillation anticoagulated on warfarin with history of cardioversion, diabetes type 2, hypertension, dyslipidemia, CKD, rheumatoid arthritis presenting with acute hypoxic respiratory failure in the setting of a covid infection. COVID-19 in immunocompromised patient Found to be hypoxic at personal halfway Patient is vaccinated against novel coronavirus. Acute infection with symptoms starting 1117 No evidence of pneumonia on initial CXR. Cont isolation for 10 days at least. Cont symptom management as needed. Decadron daily. Flonase daily. Supplemental oxygen-wean as tolerated Hypoxia related to COVID-19 infection. No evidence of acute heart failure with clear CXR. PE considered but thought to be less likely as patient is on apixaban regularly and is not sedentary with symptoms starting only day before presentation Chronic kidney disease, stage IV (severe) chronic, stable with creat around 2.1. Cont home medications and monitor for any changes, especially if diarrhea persists. Daily BMP. Cont calcitriol per home regimen. Rheumatoid arthritis chronic, stable. Tylenol PRN. Holding MTX at this time. DMII (diabetes mellitus, type 2) hgba1c of 7.1 chronic, stable. Cont basal/bolus insulin with stress level 3 given decadron administration. Diabetic diet Obstructive sleep apnea of adult history of this per records, but states that she never pursued treatment of this and is not interested at this time Chronic systolic congestive heart failure chronic, stable. Appears euvolemic to dry on exam Cont home medications including Toprol XL Also, pt reports frequent issues with urinating, especially at night. Should have this looked into prior to considering empagliflozin (per GDMT). Follows with Dr. Buchanan ([facility] cardiology) Biventricular ICD (implantable cardioverter-defibrillator) in place chronic, stable. h/o low EF. Nonischemic cardiomyopathy Paroxysmal atrial fibrillation Sinus rhythm, paced on EKG Underwent cardioversion in 2016 Cont apixaban/metoprolol per home regimen Morbid obesity Lifestyle changes for weight loss recommended. Diet: DMII, low sodium DVT proph-TEDs/SCDs/Apixaban DNR as confirmed with patient and her son on admission Discharge Exam General: Alert, oriented. No acute distress Skin: No noted rashes or bruises Psych: Appropriate mood and affect Neuro: No gross deficits HEENT: NC/AT Chest: Nontender to palpation. CV: RRR, Normal s1, s2. No murmurs appreciated Resp: Breath sounds clear bilaterally, no increased effort of breathing. Abdomen:Soft, nontender, nondistended. Extremities: +++ edema in lower extremities bilaterally. Updated Medication List Medication Instructions Recorded Confirmed Type meclizine 25 mg tablet 25 mg PO TID PRN dizziness #30 tabs 12/20/19 05/01/23 Rx cholecalciferol (vitamin D3) 50 2,000 unit PO QAM #90 caps 03/25/20 05/01/23 Rx mcg (2,000 unit) capsule (Vitamin D3) buspirone 5 mg tablet 5 mg PO BID PRN anxiety #60 tabs 04/11/21 05/01/23 Rx calcitriol 0.25 mcg capsule 0.25 mcg PO DAILY #90 caps 05/27/21 05/01/23 Rx vitamin B complex 1 tab PO DAILY 07/02/21 05/01/23 History blood sugar diagnostic #100 ea 09/01/21 12/24/22 Rx pen needle, diabetic 32 gauge x #100 ea 09/01/21 12/24/22 Rx 1/4" (BD Ultra-Fine Micro Pen Needle) folic acid 1 mg tablet 2 mg PO DAILY 09/04/21 05/01/23 History atorvastatin 10 mg tablet 10 mg PO DAILY #90 tabs 09/11/21 05/01/23 Rx flash glucose scanning reader #2 ea 10/16/21 12/24/22 Rx (FreeStyle Goldie 14 Day [place]) flash glucose sensor (FreeStyle #2 ea 10/16/21 12/24/22 Rx Goldie 14 Day Sensor kit) blood sugar diagnostic #100 ea 02/17/22 12/24/22 Rx walker #1 ea 02/17/22 04/05/23 Rx metoprolol succinate 200 mg 200 mg PO DAILY #90 tabs 02/25/22 05/01/23 Rx tablet,extended release 24 hr pantoprazole 40 mg tablet,delayed 40 mg PO BID #180 tabs 02/25/22 05/01/23 Rx release lorazepam 0.5 mg tablet 0.5 mg PO BID PRN anxiety #60 tabs 04/30/22 05/01/23 Rx miscellaneous medical supply #1 ea 05/04/22 12/24/22 Rx montelukast 10 mg tablet 10 mg PO DAILY 05/10/22 05/01/23 History gabapentin 100 mg capsule 100 mg PO BID@0900,1400 #0 caps 05/16/22 05/01/23 Rx gabapentin 300 mg capsule 300 mg PO HS #0 caps 05/16/22 05/01/23 Rx acetaminophen 325 mg tablet 650 mg PO Q6 PRN Fever Or Pain 08/28/22 05/01/23 History hydrocodone 5 mg-acetaminophen 325 1 tab PO Q4 PRN Severe Pain (Scale 08/28/22 05/01/23 History mg tablet Score 7-10) insulin glargine U-300 conc 300 25 unit subcut DAILY 08/28/22 05/01/23 History unit/mL (1.5 mL) subcutaneous pen (Toujeo SoloStar U-300 Insulin) polyethylene glycol 3350 17 gram 17 g PO DAILY PRN Constipation 08/28/22 05/01/23 History oral powder packet (Miralax) spironolactone 25 mg tablet 25 mg PO 3XWK 08/28/22 05/01/23 History venlafaxine 37.5 mg 37.5 mg PO HS 08/28/22 05/01/23 History capsule,extended release 24 hr insulin lispro 100 unit/mL 1 sliding scale dose subcut TIDM 09/21/22 05/01/23 History subcutaneous solution (Humalog U-100 Insulin) apixaban 2.5 mg tablet (Eliquis) 2.5 mg PO BID #180 tabs 04/05/23 05/01/23 Rx benzonatate 200 mg capsule 200 mg PO TID PRN Cough 05/01/23 05/01/23 History carbamide peroxide 6.5 % ear drops 5 - 10 drp otic (ear) BID PRN ear 05/01/23 05/01/23 History wax removal furosemide 40 mg tablet 40 mg PO Q2D 05/01/23 05/01/23 History loperamide 2 mg tablet 2 mg PO UD PRN Loose Stool 05/01/23 05/01/23 History (Anti-Diarrheal (loperamide)) methotrexate sodium 2.5 mg tablet 5 mg PO WK 05/01/23 05/01/23 History peg 400-propylene glycol (PF) 0.4 1 drp ophthalmic (eye) TID 05/01/23 05/01/23 History %-0.3 % eye drops in a dropperette (Systane (PF)) albuterol sulfate 90 mcg/actuation 2 inh inhalation Q8H PRN shortness 05/03/23 Rx aerosol inhaler of breath or wheezing #8.5 grams dextromethorphan-guaifenesin 5 10 ml PO Q8H PRN cough #118 mL 05/03/23 Rx mg-100 mg/5 mL oral liquid (Robitussin Honey Max DM) fluticasone propionate 50 2 spray JEROD Q24H #16 grams 05/03/23 Rx mcg/actuation nasal spray,suspension Hospital Stay Data Consultations 05/01/23 15:56 ED Decision to Admit Stat Pending Results Patient Have Any Pending Studies at Discharge: No Discharge Instructions Given to Patient (Per Discharging Provider) Ms. Taylor, You were admitted with trouble breathing due to a covid infection. We treated you with steroids and we helped you with oxygen. It looks like you will need to use oxygen at home. Please use it as directed especially when you are up and moving around. Since you are infected with covid, we ask that you isolate for a total of 10 days from the start of your symptoms (04/30). Please continue to treat your symptoms with over the counter cough medication (also prescribed for you), tylenol (to help with any associated muscle aches), inhaler (prescribed) and nasal sprays (prescribed for you). You can also continue to use your home tessalon/benzonatate to help with your cough. Please do not hesitate to come back to the emergency room if your symptoms worsen or do not get better. We also ask that you keep close follow up with your primary care provider. Take care, and it was truly a pleasure taking care of you while you were here.
--- NOTE | 2023-05-04 21:52 | Electrocardiogram Report ---
Test Reason : Blood Pressure : / mmHG Vent. Rate : 085 BPM Atrial Rate : 085 BPM P-R Int : 128 ms QRS Dur : 156 ms QT Int : 442 ms P-R-T Axes : 094 253 114 degrees QTc Int : 525 ms AV dual-paced rhythm Abnormal ECG When compared with ECG of 22-OCT-2022 05:11, Vent. rate has increased BY 2 BPM Confirmed by Nathan Gutierrez ([id number]) on 05/04/2023 9:52:05 PM Referred By: REFERRED SELF Confirmed By:Nathan Gutierrez
== END 2023-05-03 17:04 | disposition home or self-care (01) | DRG 177 ==
LOC: ED 14:27 → 2N 17:48 → SUATTDRO 17:48 → 2N 21:33

== ENCOUNTER 2023-05-30 19:21 | Observation (INO) ==
[2023-05-30 20:00] LABS: Base Excess VBG 10.7 mEq/L; Basophils # (auto) 0.05 K/uL (0.00-0.20); Basophils % (auto) 0.5 %; Eosinophils # (auto) 0.55 K/uL (0.00-0.50); HCO3 VBG 37 mmol/L; Hematocrit (blood only) 40.2 % (37.0-47.0); Hemoglobin 13.1 g/dl (12.0-16.0); Immature Granulocytes # (auto) 0.04 K/uL (0.01-0.20); Immature Granulocytes % (auto) 0.4 %; Lymphocytes # (auto) 1.89 K/uL (1.20-3.40); Lymphocytes % (auto) 20.6 %; Mean Corpuscular Hemoglobin 32.1 pg (25.0-34.0); Mean Corpuscular Hgb Conc 32.6 g/dL (32.0-36.0); Mean Corpuscular Volume 98.5 fL (80.0-100.0); Mean Platelet Volume 9.5 fL (9.4-12.4); Monocytes # (auto) 0.91 K/uL (0.11-0.59); Monocytes % (auto) 9.9 %; Neutrophils # (auto) 5.75 K/uL (1.40-6.50); Neutrophils % (auto) 62.6 %; Oxygen Saturation VBG 61.4 %; PCO2 VBG 56 mmHg (38-50); PO2 VBG 40 mmHg; Platelet Count 194 K/uL (130-400); RDW Coefficient of Variation 15.4 % (11.5-14.5); RDW Standard Deviation 53.5 fL (36.4-46.3); Red Blood Count 4.08 M/uL (4.20-5.40); White Blood Count 9.19 K/ul (4.8-10.8); pH VBG 7.43 (7.36-7.41)
--- NOTE | 2023-05-30 20:01 | Emergency Department Note ---
History of Present Illness General Chief Complaint: Shortness of Breath/Dyspnea Stated Complaint: SOB, LOW OX LEVEL Time Seen by Provider: 05/30/23 19:34 History of Present Illness Provider Complaint: shortness of breath Onset (ago): week(s) (1) Consistency/Duration: + progressively worsening Relieved By: + oxygen Known history of: congestive heart failure Associated symptoms: + cough; no chest pain, no fever, no polyuria, no palpitations or no hemoptysis Treatment prior to arrival: none HPI Narrative: Patient is on Eliquis. Patient recently had COVID and was discharged with oxygen but states she has not been wearing it Home Medications Medication Instructions Recorded Confirmed Type Systane Lubricant Eye Drops 1 drp OPB TID 05/30/23 05/30/23 History acetaminophen 325 mg tablet 650 mg PO Q6 PRN Fever Or Pain 05/30/23 05/30/23 History albuterol sulfate 90 mcg/actuation 2 inh inhalation Q8 PRN Shortness 05/30/23 05/30/23 History aerosol inhaler Of Breath Or Wheezing apixaban 2.5 mg tablet (Eliquis) 2.5 mg PO BID 05/30/23 05/30/23 History atorvastatin 10 mg tablet 10 mg PO DAILY 05/30/23 05/30/23 History benzonatate 200 mg capsule 200 mg PO TID PRN Cough 05/30/23 05/30/23 History buspirone 5 mg tablet 5 mg PO BID PRN Anxiety 05/30/23 05/30/23 History calcitriol 0.25 mcg capsule 0.25 mcg PO DAILY 05/30/23 05/30/23 History carbamide peroxide 6.5 % ear drops 5 - 10 drp otic (ear) BID PRN .Wax 05/30/23 05/30/23 History removal cholecalciferol (vitamin D3) 50 2,000 unit PO DAILY 05/30/23 05/30/23 History mcg (2,000 unit) capsule (Vitamin D3) dextromethorphan-guaifenesin 5 10 ml PO Q8H PRN Cough 05/30/23 05/30/23 History mg-100 mg/5 mL oral liquid (Robitussin Honey Max DM) fluticasone propionate 50 2 spray intranasal DAILY 05/30/23 05/30/23 History mcg/actuation nasal spray,suspension (Flonase Allergy Relief) folic acid 1 mg tablet 2 mg PO DAILY 05/30/23 05/30/23 History furosemide 40 mg tablet (Lasix) 40 mg PO Q OTHER DAY 05/30/23 05/30/23 History gabapentin 100 mg capsule 100 mg PO BID 05/30/23 05/30/23 History gabapentin 300 mg capsule 300 mg PO DAILY 05/30/23 05/30/23 History hydrocodone 5 mg-acetaminophen 325 1 tab PO Q4H PRN .SEVERER PIAN 05/30/23 05/30/23 History mg tablet insulin glargine U-300 conc 300 25 unit subcut DAILY 05/30/23 05/30/23 History unit/mL (1.5 mL) subcutaneous pen (Toujeo SoloStar U-300 Insulin) insulin lispro 100 unit/mL 1 sliding scale dose subcut TIDM 05/30/23 05/30/23 History subcutaneous solution (Humalog U-100 Insulin) loperamide 2 mg tablet 2 mg PO DIRECTED PRN Diarrhea 05/30/23 05/30/23 History lorazepam 0.5 mg tablet 0.5 mg PO BID PRN Anxiety 05/30/23 05/30/23 History methotrexate sodium 2.5 mg tablet 5 mg PO WE 05/30/23 05/30/23 History metoprolol succinate 200 mg 200 mg PO DAILY 05/30/23 05/30/23 History tablet,extended release 24 hr montelukast 10 mg tablet 10 mg PO DAILY 05/30/23 05/30/23 History pantoprazole 40 mg tablet,delayed 40 mg PO BID 05/30/23 05/30/23 History release polyethylene glycol 3350 17 gram 17 g PO DAILY PRN Constipation 05/30/23 05/30/23 History oral powder packet (Miralax) spironolactone 25 mg tablet 25 mg PO 3XWK 05/30/23 05/30/23 History venlafaxine 37.5 mg tablet 37.5 mg PO HS 05/30/23 05/30/23 History vitamin B complex 1 tab PO DAILY 05/30/23 05/30/23 History Allergies Allergy/AdvReac Type Severity Reaction Status Date / Time amiodarone AdvReac Intermediate gi distress Verified 05/30/23 21:22 aspirin AdvReac Intermediate history of Verified 05/30/23 21:22 ulcers nortriptyline AdvReac Unknown DOESN'T Verified 05/30/23 21:22 REMEMBER Past Med/Surg History Medical History Degenerative lumbar spinal stenosis COVID-19 (~03/2021) Chronic diarrhea Diabetic neuropathy Degenerative disc disease Diabetes mellitus, type 2 Hx of squamous cell carcinoma Atrial fibrillation Anxiety and depression CARRILLO (dyspnea on exertion) Sensorineural hearing loss (SNHL) of both ears Chronic systolic congestive heart failure History of basal cell carcinoma Biventricular ICD (implantable cardioverter-defibrillator) in place (2016) [employer]>GETS CHECKED BY DR. VARGAS Dyslipidemia GERD without esophagitis Hypertension PAC (premature atrial contraction) Rheumatoid arthritis Stage III chronic kidney disease Third degree AV block Non-ischemic cardiomyopathy Surgical History History of anesthesia reaction CONFUSION WITH GALLBLADDER REMOVAL, AWARENESS DURING COLONOSCOPY History of esophagogastroduodenoscopy (EGD) History of colonoscopy History of tooth extraction History of cataract surgery RT/LEFT S/P tubal ligation S/P total knee arthroplasty RT/LEFT S/P cholecystectomy Family History Father Heart disease Mother Diabetes Heart disease Myocardial infarction Family history of diabetes mellitus Grandfather (Maternal) Prostate cancer Family history of diabetes mellitus Other Family history non-contributory No family history of adverse response to anesthesia Denies family history of Ovarian cancer Breast cancer Colorectal cancer Social History Smoking Status: Never smoker Second Hand Exposure: No; Do You Dip or Chew Tobacco: Yes; Hx Alcohol Use: Yes Alcohol type: wine Hx Substance Use: No Preferred Language: Sami Communication Ability: Effective Communication Ability Comment: pt does have earring aids Visual Impairment: No Limitations Hearing Ability: Use of Hearing Aid [employer] Required: No Beliefs That Will Affect Care: None marital status: Single Current Living Situation: Personal Care Facility Current Living Situation Comment: pt lives alone, has daughter and son check on her current occupational status: retired Feels Safe at Home: Yes Childhood Exposure to Second-Hand Smoke: Yes Diet: regular Dental Care, Regularly: Yes Physical Activity Frequency: Does not Exercise Seatbelt Use: always Sunscreen Use: Yes Assistive Devices: Walker and Wheelchair Physical Exam 2 Vital Signs: Vital Signs - 24 hr 05/30/23 19:35 05/30/23 19:41 05/30/23 19:48 Temperature 36.4 C L Temperature Source Oral Pulse Rate 83 81 Pulse Rate from Sp O2 Sensor Respiratory Rate 17 Respiratory Effort / Characteristics Non-Labored Respiratory Depth Normal Blood Pressure 179/94 H Blood Pressure Inga n 122 Pulse Oximetry 80 L 97 Oxygen Delivery Me thod Room Air Nasal Cannula Oxygen Flow Rate 3 Sepsis Recent Feve r Within 48 Hours No Sepsis New/Unexpla ined Change in Men cesar Status No Sepsis Action Take n by Nursing No Action Required 05/30/23 19:49 05/30/23 19:50 05/30/23 19:51 Temperature Temperature Source Pulse Rate 80 80 Pulse Rate from Sp O2 Sensor 80 Respiratory Rate 21 15 Respiratory Effort / Characteristics Respiratory Depth Blood Pressure 169/103 H Blood Pressure Inga n 125 Pulse Oximetry 95 Oxygen Delivery Me thod Oxygen Flow Rate Sepsis Recent Feve r Within 48 Hours Sepsis New/Unexpla ined Change in Men cesar Status Sepsis Action Take n by Nursing 05/30/23 19:51 05/30/23 19:54 05/30/23 20:00 Temperature Temperature Source Pulse Rate 80 80 Pulse Rate from Sp O2 Sensor 80 79 Respiratory Rate 18 16 Respiratory Effort / Characteristics Respiratory Depth Blood Pressure Blood Pressure Inga n Pulse Oximetry 94 95 94 Oxygen Delivery Me thod Nasal Cannula Oxygen Flow Rate 3 Sepsis Recent Feve r Within 48 Hours Sepsis New/Unexpla ined Change in Men cesar Status Sepsis Action Take n by Nursing 05/30/23 20:00 05/30/23 20:10 05/30/23 20:20 Temperature Temperature Source Pulse Rate 82 82 Pulse Rate from Sp O2 Sensor 82 82 Respiratory Rate 15 21 Respiratory Effort / Characteristics Respiratory Depth Blood Pressure 169/96 H Blood Pressure Inga n 114 Pulse Oximetry 96 94 Oxygen Delivery Me thod Oxygen Flow Rate 2 Sepsis Recent Feve r Within 48 Hours Sepsis New/Unexpla ined Change in Men cesar Status Sepsis Action Take n by Nursing 05/30/23 20:30 05/30/23 20:30 05/30/23 20:40 Temperature Temperature Source Pulse Rate 87 80 Pulse Rate from Sp O2 Sensor 86 80 Respiratory Rate 17 13 Respiratory Effort / Characteristics Respiratory Depth Blood Pressure 165/98 H Blood Pressure Inga n 134 Pulse Oximetry 92 93 Oxygen Delivery Me thod Oxygen Flow Rate Sepsis Recent Feve r Within 48 Hours Sepsis New/Unexpla ined Change in Men cesar Status Sepsis Action Take n by Nursing 05/30/23 20:50 05/30/23 21:00 05/30/23 21:00 Temperature Temperature Source Pulse Rate 82 80 Pulse Rate from Sp O2 Sensor 82 82 Respiratory Rate 23 16 Respiratory Effort / Characteristics Respiratory Depth Blood Pressure 161/104 H Blood Pressure Inga n 116 Pulse Oximetry 96 98 Oxygen Delivery Me thod Oxygen Flow Rate Sepsis Recent Feve r Within 48 Hours Sepsis New/Unexpla ined Change in Men cesar Status Sepsis Action Take n by Nursing 05/30/23 21:10 05/30/23 21:20 05/30/23 21:30 Temperature Temperature Source Pulse Rate 82 81 88 Pulse Rate from Sp O2 Sensor 83 81 88 Respiratory Rate 13 15 23 Respiratory Effort / Characteristics Respiratory Depth Blood Pressure Blood Pressure Inga n Pulse Oximetry 97 97 97 Oxygen Delivery Me thod Oxygen Flow Rate Sepsis Recent Feve r Within 48 Hours Sepsis New/Unexpla ined Change in Men cesar Status Sepsis Action Take n by Nursing 05/30/23 21:32 05/30/23 21:32 05/30/23 21:40 Temperature Temperature Source Pulse Rate 86 80 Pulse Rate from Sp O2 Sensor 86 80 Respiratory Rate 18 12 Respiratory Effort / Characteristics Respiratory Depth Blood Pressure 173/105 H Blood Pressure Inga n 136 Pulse Oximetry 96 95 Oxygen Delivery Me thod Oxygen Flow Rate Sepsis Recent Feve r Within 48 Hours Sepsis New/Unexpla ined Change in Men cesar Status Sepsis Action Take n by Nursing 05/30/23 21:50 05/30/23 22:00 05/30/23 22:10 Temperature Temperature Source Pulse Rate 80 85 80 Pulse Rate from Sp O2 Sensor 80 85 80 Respiratory Rate 16 18 18 Respiratory Effort / Characteristics Respiratory Depth Blood Pressure Blood Pressure Inga n Pulse Oximetry 94 96 93 Oxygen Delivery Me thod Oxygen Flow Rate Sepsis Recent Feve r Within 48 Hours Sepsis New/Unexpla ined Change in Men cesar Status Sepsis Action Take n by Nursing 05/30/23 22:20 05/30/23 22:30 Temperature Temperature Source Pulse Rate 82 79 Pulse Rate from Sp O2 Sensor 82 79 Respiratory Rate 19 17 Respiratory Effort / Characteristics Respiratory Depth Blood Pressure Blood Pressure Inga n Pulse Oximetry 95 95 Oxygen Delivery Me thod Oxygen Flow Rate Sepsis Recent Feve r Within 48 Hours Sepsis New/Unexpla ined Change in Men cesar Status Sepsis Action Take n by Nursing Physical Exam: Physical Exam GENERAL: oriented to person, place, and time. appears well-developed and well- nourished. HENT: Exam performed. - Head: Normocephalic and atraumatic. EYES: Conjunctivae and EOM are normal. Right eye exhibits no discharge. Left eye exhibits no discharge. No scleral icterus. NECK: Normal range of motion. Neck supple. No JVD present. CV: Normal rate, regular rhythm, normal heart sounds and intact distal pulses. There is no peripheral edema. Palpable radial pulses bue. PULM/CHEST: Rhonchi bilaterally. ABD: The abdomen is soft. There is no tenderness. NEURO: Motor and sensation grossly intact. SKIN: Skin is warm and dry. He is not diaphoretic. PSYCH: normal mood and affect. Behavior is normal. Judgment and thought content normal. Course Course 1933: The patient was evaluated in room B3. A complete history and physical exam was performed Cardiac monitoring: An order was placed for continuous cardiac monitoring. The monitor shows a rate of 80 with sinus rhythm interpreted by me Patient was hypoxic on room air and her oxygen levels got better with supplemental oxygen via nasal cannula. 2114: Vital signs stable on supplemental oxygen via nasal cannula. Chest x-ray reviewed by me shows cardiomegaly with mild cephalization. BNP mildly elevated. Lasix ordered for the patient. Patient is still COVID-positive. Unclear if this is acute infection or remnants of her previous infection. [facility]. Administered Medications Discontinued Medications Furosemide (Furosemide 40 Mg/4 Ml Vial) 40 mg IV ONE ONE Stop: 05/30/23 21:16 Last Admin: 05/30/23 21:35 Dose: 40 mg Documented By: DUDLEY Medical Decision Making Laboratory Data Attestation: I reviewed the patient's lab results. 05/30/23 19:45 05/30/23 19:45 Lab Results 05/30/23 Range/Units 19:45 WBC 9.19 (4.8-10.8) K/ul RBC 4.08 L (4.20-5.40) M/uL Hgb 13.1 (12.0-16.0) g/dl Hct 40.2 (37.0-47.0) % MCV 98.5 (80.0-100.0) fL MCH 32.1 (25.0-34.0) pg MCHC 32.6 (32.0-36.0) g/dL RDW Std Deviation 53.5 H (36.4-46.3) fL RDW Coeff of Shai 15.4 H (11.5-14.5) % Plt Count 194 (130-400) K/uL MPV 9.5 (9.4-12.4) fL Immature Gran % (Auto) 0.4 % Neut % (Auto) 62.6 % Lymph % (Auto) 20.6 % Kendall % (Auto) 9.9 % Eos % (Auto) 6.0 % Baso % (Auto) 0.5 % Neut # (Auto) 5.75 (1.40-6.50) K/uL Lymph # (Auto) 1.89 (1.20-3.40) K/uL Kendall # (Auto) 0.91 H (0.11-0.59) K/uL Eos # (Auto) 0.55 H (0.00-0.50) K/uL Baso # (Auto) 0.05 (0.00-0.20) K/uL Immature Gran # (Auto) 0.04 (0.01-0.20) K/uL PT 11.4 (9.0-12.0) Seconds INR 1.0 (0.9-1.1) APTT 25 (21-31) Seconds PTT Ratio 0.9 D-Dimer 460 (0-500) ug/L FEU VBG pH 7.43 H (7.36-7.41) VBG pCO2 56 H (38-50) mmHg VBG pO2 40 mmHg VBG HCO3 37 mmol/L VBG O2 Saturation 61.4 % VBG Base Excess 10.7 mEq/L Sodium 139 (136-145) mmol/L Potassium 3.9 (3.5-5.1) mmol/L Chloride 96 L (98-107) mmol/L Carbon Dioxide 35 H (21-32) mmol/L Anion Gap 8 (3-11) BUN 43 H (6-23) mg/dl Creatinine 2.10 H (0.6-1.2) mg/dl Est Cr Clr Drug Dosing 23.2 ml/min Est GFR ( Amer) 24.1 ml/min Est GFR (Non-Af Amer) 20.8 ml/min BUN/Creatinine Ratio 20.5 H (10-20) Glucose 202 H (70-99(Fasting)) mg/dl Calcium 10.6 H (8.6-10.3) mg/dl Magnesium 1.7 (1.7-2.4) mg/dl Total Bilirubin 0.6 (0.2-1.0) mg/dl AST 36 (13-39) U/L ALT 35 (7-52) U/L Alkaline Phosphatase 108 H (34-104) U/L Troponin I High Sens 9.3 (0-14) pg/ml B-Natriuretic Peptide 116 H (0-100) pg/ml Total Protein 6.9 (6.0-8.3) gm/dl Albumin 4.2 (3.4-5.0) gm/dl Globulin 2.7 (2.5-4.0) gm/dl Albumin/Globulin Ratio 1.6 (0.9-2) Lipase 36 (11-82) U/L SARS-CoV-2 (PCR) POSITIVE A* (Negative) Influenza Type A (PCR) Negative (Neg) Influenza Type B (PCR) Negative (Neg) RSV (RT-PCR) Negative (Neg) Imaging Data Attestation: I personally reviewed and interpreted this imaging study as follows: My Impression: Chest x-ray: Cardiomegaly with mild cephalization ECG Data Attestation: I personally reviewed and interpreted this ECG as follows: Interpretation: Paced rhythm with a rate of [address] elevation or ST depression. [facility] Narrative 1933: The patient was evaluated in room B3. A complete history and physical exam was performed Cardiac monitoring: An order was placed for continuous cardiac monitoring. The monitor shows a rate of 80 with sinus rhythm interpreted by me Patient was hypoxic on room air and her oxygen levels got better with supplemental oxygen via nasal cannula. 2114: Vital signs stable on supplemental oxygen via nasal cannula. Chest x-ray reviewed by me shows cardiomegaly with mild cephalization. BNP mildly elevated. Lasix ordered for the patient. Patient is still COVID-positive. Unclear if this is acute infection or remnants of her previous infection. Patient will be admitted to the [facility] team. Impression & Plan Hypoxia, COVID-19, Chronic systolic congestive heart failure Discharge Plan Visit Data Chief Complaint: Shortness of Breath/Dyspnea Stated Complaint: SOB, LOW OX LEVEL ED Provider: Tonio Valles Discharge Problem: Hypoxia, COVID-19, Chronic systolic congestive heart failure Patient Disposition: Admitted As Inpatient Forms Stand Alone Forms: My [facility] Prescriptions Prescriptions: No Action albuterol sulfate 90 mcg/actuation Hfa Aerosol Inhaler 2 inh INHALATION Q8 PRN (Reason: Shortness Of Breath Or Wheezing) furosemide [Lasix] 40 mg Tablet 40 mg PO Q OTHER DAY buspirone [BuSpar] 5 mg Tablet 5 mg PO BID PRN (Reason: Anxiety) acetaminophen 325 mg Tablet 650 mg PO Q6 PRN (Reason: Fever Or Pain) polyethylene glycol 3350 [Miralax] 17 gram Powder In Packet 17 g PO DAILY PRN (Reason: Constipation) atorvastatin 10 mg Tablet 10 mg PO DAILY benzonatate 200 mg Capsule 200 mg PO TID PRN (Reason: Cough) hydrocodone-acetaminophen [Lortab 5-325] 5-325 mg Tablet 1 tab PO Q4H PRN (Reason: .SEVERER PIAN) metoprolol succinate 200 mg Tablet Extended Release 24 Hr 200 mg PO DAILY loperamide [Anti-Diarrhea] 2 mg Tablet 2 mg PO DIRECTED PRN (Reason: Diarrhea) Rx Instructions: administer after each loose stool until symptoms controlled; do not exceed 8 mg per 24 hrs spironolactone 25 mg Tablet 25 mg PO 3XWK Rx Instructions: MON, WED, FRI lorazepam 0.5 mg Tablet 0.5 mg PO BID PRN (Reason: Anxiety) methotrexate sodium 2.5 mg Tablet 5 mg PO WE pantoprazole 40 mg Tablet,Delayed Release (Dr/Ec) 40 mg PO BID venlafaxine 37.5 mg Tablet 37.5 mg PO HS Ear Drops Earwax Aid 6.5 % Drops 5 - 10 drp OTIC (EAR) BID PRN (Reason: .Wax removal) Rx Instructions: Up to 4 days PRN, then flush gabapentin 300 mg Capsule 300 mg PO DAILY vitamin B complex Tablet 1 tab PO DAILY folic acid 1 mg Tablet 2 mg PO DAILY montelukast 10 mg Tablet 10 mg PO DAILY gabapentin 100 mg Capsule 100 mg PO BID insulin lispro [Humalog U-100 Insulin] 100 unit/mL Solution 1 sliding scale dose SUBCUT TIDM Rx Instructions: 151-175=2units, 176-200=3units, 201-260 =4units, 251-300=5units, 301- 350=6units, 351-400= 8units Robitussin Honey Max DM 5-100 mg/5 mL Liquid 10 ml PO Q8H PRN (Reason: Cough) fluticasone propionate [Flonase Allergy Relief] 50 mcg/actuation Reeders,Suspension 2 spray INTRANASAL DAILY Rx Instructions: administer into each nostril calcitriol 0.25 mcg Capsule 0.25 mcg PO DAILY cholecalciferol (vitamin D3) [Vitamin D3] 50 mcg (2,000 unit) Capsule 2,000 unit PO DAILY Eliquis 2.5 mg Tablet 2.5 mg PO BID Toujeo SoloStar U-300 Insulin 300 unit/mL (1.5 mL) Insulin Pen 25 unit SUBCUT DAILY Systane Lubricant Eye Drops 1 drp OPB TID Referrals Referrals: Abner Bowman MD [Primary Care Provider] -
[2023-05-30 20:12] LABS: Partial Thromboplastin Ratio 0.9; Partial Thromboplastin Time 25 Seconds (21-31); Prothrombin Time 11.4 Seconds (9.0-12.0)
[2023-05-30 20:20] LABS: Albumin Globulin Ratio 1.6 (0.9-2); Albumin Level 4.2 gm/dl (3.4-5.0); BUN Creatinine Ratio 20.5 (10-20); Bilirubin,Total 0.6 mg/dl (0.2-1.0); Calcium 10.6 mg/dl (8.6-10.3); Creatinine Clr Calc Pharmacy 23.2 ml/min; Est GFR (African American) 24.1 ml/min; Est GFR (Non-African American) 20.8 ml/min; Globulin 2.7 gm/dl (2.5-4.0); Potassium 3.9 mmol/L (3.5-5.1); Total Protein 6.9 gm/dl (6.0-8.3)
[2023-05-30 20:26] LABS: Troponin I High Sensitivity 9.3 pg/ml (0-14)
[2023-05-30 20:30] LABS: Influenza A virus by PCR Negative (Neg); Influenza B virus by PCR Negative (Neg); RSV by PCR Negative (Neg)
[2023-05-30 20:35] LABS: SARS CoV2 RNA(COVID-19) Ceph POSITIVE (Negative)
[2023-05-30] MEDS ORDERED: FUROSEMIDE 40 MG/4 ML VIAL IV ONE (21:15)
[2023-05-30 22:01] LABS: Magnesium 1.7 mg/dl (1.7-2.4)
[2023-05-30] MEDS ORDERED: ALBUMIN 25% 25 GM/100 ML VIAL IV STA (22:54)
[2023-05-30 23:05] LABS: D Dimer 460 ug/L FEU (0-500)
--- NOTE | 2023-05-30 23:13 | XRay Report ---
SINGLE VIEW CHEST CLINICAL HISTORY: Atypical chest pain. FINDINGS: An AP, portable, upright chest radiograph is compared to study dated 05/01/2023. Correlatio n is made with chest CT dated 10/21/2022. A 3-lead cardiac ICD is unchanged in position. The heart is enlarged noting atherosclerotic calcification of the thoracic aorta. The pulmonary vascular is noncon gested. There is bibasilar scarring/atelectasis. No airspace consolidation or large pleural effusion is identified. No pneumothorax is seen. The skeletal structures are osteopenic. The bony thorax is gr ossly intact. There is chronic deformity of the right proximal humerus. IMPRESSION: 1. Cardiomegaly and AICD without radiographic evidence of congestive failure. 2. No airspace consolidation or large pleural effusion is identified. ACT 112: Negative or not required by law. Electronically signed by: Carlyle Lovelace M.D. 05/30/2023 11:10 PM
[2023-05-31] MEDS ORDERED: DOXYCYCLINE HYCLATE 100 MG in DEXTROSE 5% MINI-B 100 ML IV STA (00:03)
--- NOTE | 2023-05-31 00:06 | History & Physical Report ---
Date of Service May 31, 2023 Assessment & Plan (1) Hypoxemia: Plan: History COVID-19 illness last month Underlying pulmonary hypertension, ANN/CPAP noncompliance Traumatic RLE cellulitis, no sepsis for now Mild hypercalcemia chronic diastolic heart failure (EF 60 to 65%, TTE 2022), equivocal volume status history of nonischemic cardiomyopathy status post biventricular ICD PAF on Eliquis, paced rhythm third-degree AV block as per records valvular heart disease (mild MR/TR) CRI, creatinine at baseline DM insulin requiring, well-controlled as of recent hemoglobin A1c of 7.1 last month rheumatoid arthritis, at baseline Medical telemetry Supplemental O2 Pulmonology consult re: respiratory failure, underlying pulm hypertension Doxycycline for RLE cellulitis Hold calcitriol for now given mild hypercalcemia Basal bolus insulin, ISS BG goal 1 10-1 40, carb count coverage DVT prophylaxis. Eliquis DNR as per patient's prior directives. Text document was generated using [employer] voice recognition software. It may contain grammatical or spelling errors. Kindly contact undersigned for clarification of any documentation item in question. History of Present Illness Chief Complaint: Shortness of breath, low oxygen Primary Care Provider: Ry Gasca, History obtained from patient and records. Medical history significant for chronic diastolic heart failure (EF 60 to 65%, TTE 2022), history of nonischemic cardiomyopathy status post biventricular ICD, PAF on Eliquis, third-degree AV block as per records, valvular heart disease (mild MR/TR), pulmonary hypertension, ANN (CPAP intolerance), CRI (baseline creatinine 2s), DM insulin requiring, rheumatoid arthritis. Recent confinement last month for hypoxemia secondary to COVID-19 infection. Patient completed Decadron course. Shortness of breath slightly improved, cough symptoms resolved on discharge. Patient noted worsening shortness of breath symptoms even at rest the last few days. No unusual cough symptoms. Patient denies chest pain or fluid retention. Right lower leg injury/bruising from fall a few days ago. No fever, no chills. Patient sent to ER for evaluation. O2 sats 80s upon arrival at the ER IV Lasix administered at the ER. 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 Allergies Allergy/AdvReac Type Severity Reaction Status Date / Time amiodarone AdvReac Intermediate gi distress Verified 05/30/23 21:22 aspirin AdvReac Intermediate history of Verified 05/30/23 21:22 ulcers nortriptyline AdvReac Unknown DOESN'T Verified 05/30/23 21:22 REMEMBER Home Medications Medication Instructions Recorded Confirmed Type Systane Lubricant Eye Drops 1 drp OPB TID 05/30/23 05/30/23 History acetaminophen 325 mg tablet 650 mg PO Q6 PRN Fever Or Pain 05/30/23 05/30/23 History albuterol sulfate 90 mcg/actuation 2 inh inhalation Q8 PRN Shortness 05/30/23 05/30/23 History aerosol inhaler Of Breath Or Wheezing apixaban 2.5 mg tablet (Eliquis) 2.5 mg PO BID 05/30/23 05/30/23 History atorvastatin 10 mg tablet 10 mg PO DAILY 05/30/23 05/30/23 History benzonatate 200 mg capsule 200 mg PO TID PRN Cough 05/30/23 05/30/23 History buspirone 5 mg tablet 5 mg PO BID PRN Anxiety 05/30/23 05/30/23 History calcitriol 0.25 mcg capsule 0.25 mcg PO DAILY 05/30/23 05/30/23 History carbamide peroxide 6.5 % ear drops 5 - 10 drp otic (ear) BID PRN .Wax 05/30/23 05/30/23 History removal cholecalciferol (vitamin D3) 50 2,000 unit PO DAILY 05/30/23 05/30/23 History mcg (2,000 unit) capsule (Vitamin D3) dextromethorphan-guaifenesin 5 10 ml PO Q8H PRN Cough 05/30/23 05/30/23 History mg-100 mg/5 mL oral liquid (Robitussin Honey Max DM) fluticasone propionate 50 2 spray intranasal DAILY 05/30/23 05/30/23 History mcg/actuation nasal spray,suspension (Flonase Allergy Relief) folic acid 1 mg tablet 2 mg PO DAILY 05/30/23 05/30/23 History furosemide 40 mg tablet (Lasix) 40 mg PO Q OTHER DAY 05/30/23 05/30/23 History gabapentin 100 mg capsule 100 mg PO BID 05/30/23 05/30/23 History gabapentin 300 mg capsule 300 mg PO DAILY 05/30/23 05/30/23 History hydrocodone 5 mg-acetaminophen 325 1 tab PO Q4H PRN .SEVERER PIAN 05/30/23 05/30/23 History mg tablet insulin glargine U-300 conc 300 25 unit subcut DAILY 05/30/23 05/30/23 History unit/mL (1.5 mL) subcutaneous pen (Toujeo SoloStar U-300 Insulin) insulin lispro 100 unit/mL 1 sliding scale dose subcut TIDM 05/30/23 05/30/23 History subcutaneous solution (Humalog U-100 Insulin) loperamide 2 mg tablet 2 mg PO DIRECTED PRN Diarrhea 05/30/23 05/30/23 History lorazepam 0.5 mg tablet 0.5 mg PO BID PRN Anxiety 05/30/23 05/30/23 History methotrexate sodium 2.5 mg tablet 5 mg PO WE 05/30/23 05/30/23 History metoprolol succinate 200 mg 200 mg PO DAILY 05/30/23 05/30/23 History tablet,extended release 24 hr montelukast 10 mg tablet 10 mg PO DAILY 05/30/23 05/30/23 History pantoprazole 40 mg tablet,delayed 40 mg PO BID 05/30/23 05/30/23 History release polyethylene glycol 3350 17 gram 17 g PO DAILY PRN Constipation 05/30/23 05/30/23 History oral powder packet (Miralax) spironolactone 25 mg tablet 25 mg PO 3XWK 05/30/23 05/30/23 History venlafaxine 37.5 mg tablet 37.5 mg PO HS 05/30/23 05/30/23 History vitamin B complex 1 tab PO DAILY 05/30/23 05/30/23 History Past Med/Surg History Medical History Degenerative lumbar spinal stenosis COVID-19 (~03/2021) Chronic diarrhea Diabetic neuropathy Degenerative disc disease Diabetes mellitus, type 2 Hx of squamous cell carcinoma Atrial fibrillation Anxiety and depression CARRILLO (dyspnea on exertion) Sensorineural hearing loss (SNHL) of both ears Chronic systolic congestive heart failure History of basal cell carcinoma Biventricular ICD (implantable cardioverter-defibrillator) in place (2016) [employer]>GETS CHECKED BY DR. VARGAS Dyslipidemia GERD without esophagitis Hypertension PAC (premature atrial contraction) Rheumatoid arthritis Stage III chronic kidney disease Third degree AV block Non-ischemic cardiomyopathy Surgical History History of anesthesia reaction CONFUSION WITH GALLBLADDER REMOVAL, AWARENESS DURING COLONOSCOPY History of esophagogastroduodenoscopy (EGD) History of colonoscopy History of tooth extraction History of cataract surgery RT/LEFT S/P tubal ligation S/P total knee arthroplasty RT/LEFT S/P cholecystectomy Family History Father Heart disease Mother Diabetes Heart disease Myocardial infarction Family history of diabetes mellitus Grandfather (Maternal) Prostate cancer Family history of diabetes mellitus Other Family history non-contributory No family history of adverse response to anesthesia Denies family history of Ovarian cancer Breast cancer Colorectal cancer Social History Smoking Status: Never smoker Second Hand Exposure: No; Do You Dip or Chew Tobacco: Yes; Hx Alcohol Use: No Hx Substance Use: No Preferred Language: Senegalese Communication Ability: Effective Communication Ability Comment: pt does have earring aids Visual Impairment: No Limitations Hearing Ability: Use of Hearing Aid Reliability Engineer Required: No Beliefs That Will Affect Care: None marital status: Single Current Living Situation: Personal Care Facility Current Living Situation Comment: pt lives alone, has daughter and son check on her current occupational status: retired Feels Safe at Home: Yes Safety Concerns: Feels Safe At This Time Childhood Exposure to Second-Hand Smoke: Yes Diet: regular Dental Care, Regularly: Yes Physical Activity Frequency: Does not Exercise Seatbelt Use: always Sunscreen Use: Yes Assistive Devices: Glasses, Hearing Aid - Bilateral, Walker and Wheelchair Review of Systems Review of Systems: As per HPI, all other systems reviewed and negative Physical Exam Physical Exam: GENERAL: Comfortable, pleasant, slightly hard of hearing, obese, no respiratory distress SKIN: Normal color, warm HEENT: [place] palpebral conjunctivae, no ptosis, dry buccal mucosa, nasal cannula in place NECK : Supple, short neck, no tenderness CHEST : Decreased breath sounds, no tenderness HEART : RRR, systolic murmur ABDOMEN: Some distention, nontender EXTREMITIES : RLE erythema with dressing, minimal tenderness, no other conspicuous deformities noted NEUROLOGIC : Coherent, no facial asymmetry, slightly hard of hearing, no other gross focality Results & Data Results & Data Vital Signs (Past 12 Hours) Vital Signs Temp Pulse Resp BP Pulse Ox O2 Del Method O2 Flow Rate 05/30/23 23:50 79 05/30/23 22:30 79 17 95 05/30/23 22:20 82 19 95 05/30/23 22:10 80 18 93 05/30/23 22:00 85 18 96 05/30/23 21:50 80 16 94 05/30/23 21:40 80 12 95 05/30/23 21:32 173/105 H 05/30/23 21:32 86 18 96 05/30/23 21:30 88 23 97 05/30/23 21:20 81 15 97 05/30/23 21:10 82 13 97 05/30/23 21:00 161/104 H 05/30/23 21:00 80 16 98 05/30/23 20:50 82 23 96 05/30/23 20:40 80 13 93 05/30/23 20:30 87 17 92 05/30/23 20:30 165/98 H 05/30/23 20:20 82 21 94 05/30/23 20:10 82 15 96 2 05/30/23 20:00 169/96 H 05/30/23 20:00 80 16 94 05/30/23 19:54 95 Nasal Cannula 3 05/30/23 19:51 80 18 94 05/30/23 19:51 169/103 H 05/30/23 19:50 80 15 95 05/30/23 19:49 80 21 05/30/23 19:48 81 05/30/23 19:41 97 Nasal Cannula 3 05/30/23 19:35 36.4 C L 83 17 179/94 H 80 L Room Air Laboratory Results Laboratory Results WBC 9.19 K/ul (4.8-10.8) 05/30/23 19:45 RBC 4.08 M/uL (4.20-5.40) L 05/30/23 19:45 Hgb 13.1 g/dl (12.0-16.0) 05/30/23 19:45 Hct 40.2 % (37.0-47.0) 05/30/23 19:45 MCV 98.5 fL (80.0-100.0) 05/30/23 19:45 MCH 32.1 pg (25.0-34.0) 05/30/23 19:45 MCHC 32.6 g/dL (32.0-36.0) 05/30/23 19:45 RDW Std Deviation 53.5 fL (36.4-46.3) H 05/30/23 19:45 RDW Coeff of Shai 15.4 % (11.5-14.5) H 05/30/23 19:45 Plt Count 194 K/uL (130-400) 05/30/23 19:45 MPV 9.5 fL (9.4-12.4) 05/30/23 19:45 Immature Gran % (Auto) 0.4 % 05/30/23 19:45 Neut % (Auto) 62.6 % 05/30/23 19:45 Lymph % (Auto) 20.6 % 05/30/23 19:45 Crawford % (Auto) 9.9 % 05/30/23 19:45 Eos % (Auto) 6.0 % 05/30/23 19:45 Baso % (Auto) 0.5 % 05/30/23 19:45 Neut # (Auto) 5.75 K/uL (1.40-6.50) 05/30/23 19:45 Lymph # (Auto) 1.89 K/uL (1.20-3.40) 05/30/23 19:45 Crawford # (Auto) 0.91 K/uL (0.11-0.59) H 05/30/23 19:45 Eos # (Auto) 0.55 K/uL (0.00-0.50) H 05/30/23 19:45 Baso # (Auto) 0.05 K/uL (0.00-0.20) 05/30/23 19:45 Immature Gran # (Auto) 0.04 K/uL (0.01-0.20) 05/30/23 19:45 PT 11.4 Seconds (9.0-12.0) 05/30/23 19:45 INR 1.0 (0.9-1.1) 05/30/23 19:45 APTT 25 Seconds (21-31) 05/30/23 19:45 PTT Ratio 0.9 05/30/23 19:45 D-Dimer 460 ug/L FEU (0-500) 05/30/23 19:45 VBG pH 7.43 (7.36-7.41) H 05/30/23 19:45 VBG pCO2 56 mmHg (38-50) H 05/30/23 19:45 VBG pO2 40 mmHg 05/30/23 19:45 VBG HCO3 37 mmol/L 05/30/23 19:45 VBG O2 Saturation 61.4 % 05/30/23 19:45 VBG Base Excess 10.7 mEq/L 05/30/23 19:45 Sodium 139 mmol/L (136-145) 05/30/23 19:45 Potassium 3.9 mmol/L (3.5-5.1) 05/30/23 19:45 Chloride 96 mmol/L (98-107) L 05/30/23 19:45 Carbon Dioxide 35 mmol/L (21-32) H 05/30/23 19:45 Anion Gap 8 (3-11) 05/30/23 19:45 BUN 43 mg/dl (6-23) H 05/30/23 19:45 Creatinine 2.10 mg/dl (0.6-1.2) H 05/30/23 19:45 Est Cr Clr Drug Dosing 23.2 ml/min 05/30/23 19:45 Est GFR ( Amer) 24.1 ml/min 05/30/23 19:45 Est GFR (Non-Af Amer) 20.8 ml/min 05/30/23 19:45 BUN/Creatinine Ratio 20.5 (10-20) H 05/30/23 19:45 Glucose 202 mg/dl (70-99(Fasting)) H 05/30/23 19:45 Calcium 10.6 mg/dl (8.6-10.3) H 05/30/23 19:45 Magnesium 1.7 mg/dl (1.7-2.4) 05/30/23 19:45 Total Bilirubin 0.6 mg/dl (0.2-1.0) 05/30/23 19:45 AST 36 U/L (13-39) 05/30/23 19:45 ALT 35 U/L (7-52) 05/30/23 19:45 Alkaline Phosphatase 108 U/L (34-104) H 05/30/23 19:45 Troponin I High Sens 9.3 pg/ml (0-14) 05/30/23 19:45 B-Natriuretic Peptide 116 pg/ml (0-100) H 05/30/23 19:45 Total Protein 6.9 gm/dl (6.0-8.3) 05/30/23 19:45 Albumin 4.2 gm/dl (3.4-5.0) 05/30/23 19:45 Globulin 2.7 gm/dl (2.5-4.0) 05/30/23 19:45 Albumin/Globulin Ratio 1.6 (0.9-2) 05/30/23 19:45 Lipase 36 U/L (11-82) 05/30/23 19:45 SARS-CoV-2 (PCR) POSITIVE (Negative) A* 05/30/23 19:45 Influenza Type A (PCR) Negative (Neg) 05/30/23 19:45 Influenza Type B (PCR) Negative (Neg) 05/30/23 19:45 RSV (RT-PCR) Negative (Neg) 05/30/23 19:45 Impressions Chest X-Ray 05/30/23 19:41 SINGLE VIEW CHEST CLINICAL HISTORY: Atypical chest pain. FINDINGS: An AP, portable, upright chest radiograph is compared to study dated 05/01/2023. Correlation is made with chest CT dated 10/21/2022. A 3-lead cardiac ICD is unchanged in position. The heart is enlarged noting atherosclerotic calcification of the thoracic aorta. The pulmonary vascular is noncongested. There is bibasilar scarring/atelectasis. No airspace consolidation or large pleural effusion is identified. No pneumothorax is seen. The skeletal structures are osteopenic. The bony thorax is grossly intact. There is chronic deformity of the right proximal humerus. IMPRESSION: 1. Cardiomegaly and AICD without radiographic evidence of congestive failure. 2. No airspace consolidation or large pleural effusion is identified. ACT 112: Negative or not required by law. Electronically signed by: Carlyle Lovelace M.D. 05/30/2023 11:10 PM Diagnostic Findings EKG as per my interpretation :Rate 80, paced rhythm
[2023-05-31] MEDS ORDERED: PROMETHAZINE HCL 12.5 MG in SODIUM CHLORIDE 0.9% 50 ML IV PRN (00:13)
[2023-05-31] MEDS ORDERED: amLODIPine BESYLATE 5 MG TAB PO STA (00:19)
[2023-05-31] MEDS ORDERED: BENZONATATE 100 MG CAPSULE PO PRN (01:24)
[2023-05-31] MEDS ORDERED: busPIRone 5 MG TAB PO PRN (01:24)
[2023-05-31] MEDS ORDERED: ACETAMINOPHEN 325 MG TAB PO PRN (01:24)
[2023-05-31] MEDS ORDERED: GLUCOSE 40% GEL 15 GM TUBE PO PRN (01:24)
[2023-05-31] MEDS ORDERED: CARBOHYDRATES FOR HYPOGLYCEMIA PO PRN (01:24)
[2023-05-31] MEDS ORDERED: HYDROCODONE/ACETAMOPHEN 5/325MG TAB PO PRN (01:24)
[2023-05-31] MEDS ORDERED: LORazepam 0.5 MG TAB PO PRN (01:24)
[2023-05-31] MEDS ORDERED: GLUCAGON FOR INJ 1 MG VIAL SQ PRN (01:24)
[2023-05-31] MEDS ORDERED: DEXTROSE 50% 50 ML SYRINGE IV PRN (01:24)
[2023-05-31] MEDS ORDERED: GLUCOSE 10 TAB/TUBE PO PRN (01:24)
[2023-05-31] MEDS ORDERED: POLYETHYLENE (MIRALAX) 17 GM PACK PO PRN (01:24)
[2023-05-31 02:02] LABS: Phosphorus 4.2 mg/dl (2.5-4.9)
[2023-05-31] MEDS: INSULIN ASPART PER UNIT CHARGE SC SCH ×5 (04:24→21:57)
[2023-05-31 04:48] LABS: Basophils # (auto) 0.05 K/uL (0.00-0.20); Basophils % (auto) 0.7 %; Eosinophils # (auto) 0.44 K/uL (0.00-0.50); Eosinophils % (auto) 6.3 %; Hemoglobin 12.2 g/dl (12.0-16.0); Immature Granulocytes # (auto) 0.01 K/uL (0.01-0.20); Immature Granulocytes % (auto) 0.1 %; Lymphocytes % (auto) 20.2 %; Mean Corpuscular Hemoglobin 31.7 pg (25.0-34.0); Mean Corpuscular Volume 96.1 fL (80.0-100.0); Mean Platelet Volume 9.5 fL (9.4-12.4); Monocytes # (auto) 0.74 K/uL (0.11-0.59); Monocytes % (auto) 10.7 %; Platelet Count 185 K/uL (130-400); RDW Coefficient of Variation 15.5 % (11.5-14.5); RDW Standard Deviation 52.6 fL (36.4-46.3); Red Blood Count 3.85 M/uL (4.20-5.40); White Blood Count 6.94 K/ul (4.8-10.8)
[2023-05-31 05:00] LABS: BUN Creatinine Ratio 21.1 (10-20); Calcium 10.4 mg/dl (8.6-10.3); Creatinine Clr Calc Pharmacy 26.3 ml/min; Est GFR (African American) 28.1 ml/min; Est GFR (Non-African American) 24.2 ml/min; Potassium 3.6 mmol/L (3.5-5.1)
--- NOTE | 2023-05-31 05:00 | CT Scan Report ---
Exam(s): CT CHEST Without Contrast EXAM: CT Chest Without Intravenous Contrast CLINICAL HISTORY: Reason for exam: low o2. TECHNIQUE: Axial computed tomography images of the chest without intravenous contrast. Automated exposure control was utilized for the study. A dose lowering technique was utilized adhering to the principles of ALARA. COMPARISON: Chest x-ray 05/30/2023, CT chest 10/21/2022.. FINDINGS: Lungs: Left basilar atelectasis.. No mass. No consolidation. Unchanged mild diffuse interstitial scarring. Pleural space: Unremarkable. No pneumothorax. No pleural effusion. Heart: No cardiomegaly. No significant pericardial effusion. Coronary artery calcifications. Bones/joints: Degenerative changes of the spine and bilateral shoulders. No acute fracture. Soft tissues: Unremarkable. Vasculature: Atherosclerotic vascular calcifications.. 4.1 cm AP diameter ascending thoracic aortic aneurysm. Lines: Left subclavian dual-chamber pacemaker with AICD. Abdomen: Redemonstrated pneumobilia. IMPRESSION: No significant change from 10/21/2022. 4.1 cm AP diameter ascending aortic aneurysm. Mild chronic interstitial fibrotic changes. No focal pneumonia. Minimal left basilar atelectasis. Otherwise no change. Electronically signed by: Ry Jeffers M.D. 05/31/23 04:59 AM
--- NOTE | 2023-05-31 05:29 | CT Scan Report ---
Exam(s): CT EXTREMITY RIGHT LOWER Without Contrast EXAM: CT Right Lower Extremity Without Intravenous Contrast CLINICAL HISTORY: Reason for exam: RLE bruising/swelling. TECHNIQUE: Axial computed tomography images of the right lower extremity without intravenous contrast. Automated exposure control was utilized for the study. A dose lowering technique was utilized adhering to the principles of ALARA. COMPARISON: No relevant prior studies available. FINDINGS: Bones/joints: There is right knee arthroplasty. Moderate degenerative arthritic changes seen at the ankle joint. No acute fracture. No dislocation. Soft tissues: Multiple areas of soft tissue edema identified in the right leg, most prominently seen around the right ankle. No soft tissue abscess. No soft tissue air. Vasculature: Extensive atherosclerotic calcifications are seen in the arteries of the right leg. IMPRESSION: 1. Soft tissue edema most prominently around the right ankle, could be from cellulitis. No soft tissue abscess 2. No acute fracture Electronically signed by: Teto Stewart MD 05/31/23 05:28 AM
[2023-05-31] MEDS ORDERED: ALBUMIN 25% 25 GM/100 ML VIAL IV ONE (06:39)
[2023-05-31] MEDS ORDERED: LANTUS PER UNIT CHARGE SQ SCH ×4 (09:00→11:30)
[2023-05-31] MEDS: VITAMIN B COMPLEX TAB PO SCH (10:48)
[2023-05-31] MEDS: PANTOprazole 40 MG TAB PO SCH ×2 (10:48→21:58)
[2023-05-31] MEDS: ATORVASTATIN 10 MG TAB PO SCH (10:49)
[2023-05-31] MEDS: GABAPENTIN 300 MG CAP PO SCH (10:49)
[2023-05-31] MEDS: METOPROLOL SUCC 50MG EXT REL TAB PO SCH (10:49)
[2023-05-31] MEDS: FOLIC ACID 1 MG TAB PO SCH (10:49)
[2023-05-31] MEDS: GABAPENTIN 100 MG CAP PO SCH ×2 (10:50→21:58)
[2023-05-31] MEDS: FLUTICASONE PROPIONATE NA SPR 16 GM BTL SCH (10:53)
[2023-05-31] MEDS: APIXABAN 2.5 MG TAB PO SCH ×2 (10:59→21:58)
[2023-05-31] MEDS: MONTELUKAST SODIUM 10 MG TABLET PO SCH (11:01)
[2023-05-31] MEDS: ARTIFICIAL TEARS OP SCH ×3 (11:01→21:59)
--- NOTE | 2023-05-31 12:15 | Pulmonary Consultation ---
Date of Consultation May 31, 2023 Assessment & Plan (1) Hypoxia: (2) Morbid obesity: (3) Rheumatoid arthritis: (4) History of COVID-19: (5) Abnormal CT scan, chest: Plan 88-year-old female with a history of rheumatoid arthritis, morbid obesity, diabetes mellitus, ANN, diastolic CHF and paroxysmal atrial fibrillation who presented to the hospital due to shortness of breath and hypoxia. She is now requiring 2 to 3 L of oxygen to maintain saturations above 89%. I suspect her oxygen requirements are chronic as opposed to acute. Her CT chest does not reveal any acute findings. She has mildly increased interstitial markings at the bases. She may have a mild form of interstitial lung disease related to rheumatoid arthritis or other condition. UIP/IPF also in the differential. She does have some minimal traction bronchiectasis in the lower lobes, right greater than left. There is no evidence of honeycombing. Additionally, her hypoxemia is exacerbated by morbid obesity, paroxysmal atrial fibrillation and diastolic heart failure. She appears to have probable p ulmonary hypertension secondary to left-sided heart disease. Recommend repeat echocardiogram to evaluate LV and RV function. She is testing positive for COVID-19, but I suspect this represents nonviable virus that is lingering due to her recent infection. I do not recommend any specific therapy such as dexamethasone or remdesivir. I spoke with the patient's hospitalist, son at bedside and daughter over the phone. All questions were answered to the best of my ability. Will defer disposition to the primary service. History of Present Illness Reason for Consultation: "resp failure, pulm hypertension" Attending Physician: Neli Du MD History of Present Illness 88-year-old female with a past medical history of diastolic heart failure, CKD stage IV, DJD, paroxysmal atrial fibrillation and ANN who presented to the hospital due to shortness of breath. She notes that a medical center director at [facility] checked her oxygen levels at home and they were in the 80s. She was sent to the ER. She is currently on 3 L of supplemental oxygen. She denies any shortness of breath or cough at present. She does endorse increasing weakness over the past few weeks. She denies any fevers, chills or night sweats. She did test positive for COVID-19 during this admission. Of note, she was discharged from the hospital April due to viral illness related to COVID- 19. She notes that she is a lifelong non-smoker. She was exposed to secondhand smoke as a child. She had an echo in October 2022 which revealed an LVEF of 60 to 65% and mild aortic valve sclerosis. RVSP was estimated at [address] chest obtained 05/31/2023. Radiology interpretation noted with no significant change compared to October. Mild chronic interstitial fibrotic changes noted particular at the bases. No acute infiltrates were seen. No significant leukocytosis noted. BNP was minimally and elevated to 116. EKG revealed a dual paced rhythm without any signs of ischemia. Troponin was negative on admission. Allergies Allergy/AdvReac Type Severity Reaction Status Date / Time amiodarone AdvReac Intermediate gi distress Verified 05/30/23 21:22 aspirin AdvReac Intermediate history of Verified 05/30/23 21:22 ulcers nortriptyline AdvReac Unknown DOESN'T Verified 05/30/23 21:22 REMEMBER Home Medications Medication Instructions Recorded Confirmed Type Systane Lubricant Eye Drops 1 drp OPB TID 05/30/23 05/30/23 History acetaminophen 325 mg tablet 650 mg PO Q6 PRN Fever Or Pain 05/30/23 05/30/23 History albuterol sulfate 90 mcg/actuation 2 inh inhalation Q8 PRN Shortness 05/30/23 05/30/23 History aerosol inhaler Of Breath Or Wheezing apixaban 2.5 mg tablet (Eliquis) 2.5 mg PO BID 05/30/23 05/30/23 History atorvastatin 10 mg tablet 10 mg PO DAILY 05/30/23 05/30/23 History benzonatate 200 mg capsule 200 mg PO TID PRN Cough 05/30/23 05/30/23 History buspirone 5 mg tablet 5 mg PO BID PRN Anxiety 05/30/23 05/30/23 History calcitriol 0.25 mcg capsule 0.25 mcg PO DAILY 05/30/23 05/30/23 History carbamide peroxide 6.5 % ear drops 5 - 10 drp otic (ear) BID PRN .Wax 05/30/23 05/30/23 History removal cholecalciferol (vitamin D3) 50 2,000 unit PO DAILY 05/30/23 05/30/23 History mcg (2,000 unit) capsule (Vitamin D3) dextromethorphan-guaifenesin 5 10 ml PO Q8H PRN Cough 05/30/23 05/30/23 History mg-100 mg/5 mL oral liquid (Robitussin Honey Max DM) fluticasone propionate 50 2 spray intranasal DAILY 05/30/23 05/30/23 History mcg/actuation nasal spray,suspension (Flonase Allergy Relief) folic acid 1 mg tablet 2 mg PO DAILY 05/30/23 05/30/23 History furosemide 40 mg tablet (Lasix) 40 mg PO Q OTHER DAY 05/30/23 05/30/23 History gabapentin 100 mg capsule 100 mg PO BID 05/30/23 05/30/23 History gabapentin 300 mg capsule 300 mg PO DAILY 05/30/23 05/30/23 History hydrocodone 5 mg-acetaminophen 325 1 tab PO Q4H PRN .SEVERER PIAN 05/30/23 05/30/23 History mg tablet insulin glargine U-300 conc 300 25 unit subcut DAILY 05/30/23 05/30/23 History unit/mL (1.5 mL) subcutaneous pen (Toujeo SoloStar U-300 Insulin) insulin lispro 100 unit/mL 1 sliding scale dose subcut TIDM 05/30/23 05/30/23 History subcutaneous solution (Humalog U-100 Insulin) loperamide 2 mg tablet 2 mg PO DIRECTED PRN Diarrhea 05/30/23 05/30/23 History lorazepam 0.5 mg tablet 0.5 mg PO BID PRN Anxiety 05/30/23 05/30/23 History methotrexate sodium 2.5 mg tablet 5 mg PO WE 05/30/23 05/30/23 History metoprolol succinate 200 mg 200 mg PO DAILY 05/30/23 05/30/23 History tablet,extended release 24 hr montelukast 10 mg tablet 10 mg PO DAILY 05/30/23 05/30/23 History pantoprazole 40 mg tablet,delayed 40 mg PO BID 05/30/23 05/30/23 History release polyethylene glycol 3350 17 gram 17 g PO DAILY PRN Constipation 05/30/23 05/30/23 History oral powder packet (Miralax) spironolactone 25 mg tablet 25 mg PO 3XWK 05/30/23 05/30/23 History venlafaxine 37.5 mg tablet 37.5 mg PO HS 05/30/23 05/30/23 History vitamin B complex 1 tab PO DAILY 05/30/23 05/30/23 History Patient History Medical History (Updated 05/31/23 @ 12:10 by Javier Jacinto MD) Abnormal CT scan, chest History of COVID-19 Degenerative lumbar spinal stenosis COVID-19 (~03/2021) Chronic diarrhea Diabetic neuropathy Degenerative disc disease Diabetes mellitus, type 2 Hx of squamous cell carcinoma Atrial fibrillation Anxiety and depression CARRILLO (dyspnea on exertion) Sensorineural hearing loss (SNHL) of both ears Chronic systolic congestive heart failure History of basal cell carcinoma Biventricular ICD (implantable cardioverter-defibrillator) in place (2015) [employer]>GETS CHECKED BY DR. VARGAS Dyslipidemia GERD without esophagitis Hypertension PAC (premature atrial contraction) Rheumatoid arthritis Stage III chronic kidney disease Third degree AV block Non-ischemic cardiomyopathy Surgical History History of anesthesia reaction CONFUSION WITH GALLBLADDER REMOVAL, AWARENESS DURING COLONOSCOPY History of esophagogastroduodenoscopy (EGD) History of colonoscopy History of tooth extraction History of cataract surgery RT/LEFT S/P tubal ligation S/P total knee arthroplasty RT/LEFT S/P cholecystectomy Family History Father Heart disease Mother Diabetes Heart disease Myocardial infarction Family history of diabetes mellitus Grandfather (Maternal) Prostate cancer Family history of diabetes mellitus Other Family history non-contributory No family history of adverse response to anesthesia Denies family history of Ovarian cancer Breast cancer Colorectal cancer Social History Smoking Status: Never smoker Second Hand Exposure: No; Do You Dip or Chew Tobacco: Yes; Hx Alcohol Use: No Hx Substance Use: No Preferred Language: [place] Communication Ability: Effective Communication Ability Comment: pt does have earring aids Visual Impairment: No Limitations Hearing Ability: Use of Hearing Aid 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 Required: No Beliefs That Will Affect Care: None marital status: Single Current Living Situation: Personal Care Facility Current Living Situation Comment: pt lives alone, has daughter and son check on her current occupational status: retired Feels Safe at Home: Yes Safety Concerns: Feels Safe At This Time Childhood Exposure to Second-Hand Smoke: Yes Diet: regular Dental Care, Regularly: Yes Physical Activity Frequency: Does not Exercise Seatbelt Use: always Sunscreen Use: Yes Assistive Devices: Glasses, Hearing Aid - Bilateral, Walker and Wheelchair Review of Systems 2 Review of Systems: All systems reviewed & are unremarkable except as noted in HPI & below Physical Exam Physical Exam: Constitutional: Patient appears to be of their stated age. Patient is in no apparent distress. Obese. Eyes: Pupils are equal round and reactive to light. Conjunctivae are normal. Anicteric sclera. Ears nose, mouth and throat: Mallampati class 2. Normal posterior oropharynx. Uvula is midline. Neck: Trachea is midline. Visual inspection is normal. Respiratory: Mild crackles in the lower lobes bilaterally. No wheezes or rails. Cardiovascular: Regular rate and rhythm. No murmurs. No edema. Gastrointestinal: Normal bowel sounds, soft, nontender and nondistended. No hepatosplenomegaly noted. Musculoskeletal: No cyanosis. Patient is able to move all extremities. Strength is 5 out of 5 in the upper and lower extremities. Skin: No rashes, warm dry and intact. Neurologic: No obvious focal neurological deficits seen. Psychiatric: Alert and oriented x3 with a euthymic affect. Results & Data Results & Data Vital Signs (Past 12 Hours) Vital Signs Pulse Pulse Resp BP BP Pulse Ox Pulse Ox 05/31/23 07:07 80 05/31/23 06:00 86 18 134/71 97 05/31/23 05:00 80 19 156/94 H 97 05/31/23 04:01 80 15 138/77 97 05/31/23 03:40 05/31/23 03:40 86 18 134/71 95 05/31/23 03:30 80 12 94 05/31/23 03:03 84 21 134/74 94 05/31/23 03:00 05/31/23 03:00 94 05/31/23 02:40 80 16 95 05/31/23 02:30 161/93 H 05/31/23 02:30 80 17 97 05/31/23 02:20 83 13 94 05/31/23 02:10 80 19 97 05/31/23 02:00 160/90 H 05/31/23 02:00 80 22 95 05/31/23 01:50 80 20 96 05/31/23 01:40 80 15 95 05/31/23 01:30 155/86 H 05/31/23 01:30 80 12 94 05/31/23 01:25 83 05/31/23 01:20 162/90 H 05/31/23 01:20 83 18 94 05/31/23 01:11 94 05/31/23 00:40 80 23 96 05/31/23 00:30 180/98 H 05/31/23 00:30 80 15 89 L 05/31/23 00:20 80 16 90 05/31/23 00:10 80 21 97 O2 Del Method O2 Del Method O2 Flow Rate 05/31/23 07:07 05/31/23 06:00 Oxymask 3 05/31/23 05:00 Oxymask 3 05/31/23 04:01 Oxymask 3 05/31/23 03:40 Oxymask 3 05/31/23 03:40 Oxymask 3 05/31/23 03:30 Nasal Cannula 4 05/31/23 03:03 Nasal Cannula 4 05/31/23 03:00 Nasal Cannula 3 05/31/23 03:00 Room Air 05/31/23 02:40 05/31/23 02:30 05/31/23 02:30 05/31/23 02:20 05/31/23 02:10 05/31/23 02:00 05/31/23 02:00 05/31/23 01:50 05/31/23 01:40 05/31/23 01:30 05/31/23 01:30 05/31/23 01:25 05/31/23 01:20 05/31/23 01:20 05/31/23 01:11 05/31/23 00:40 05/31/23 00:30 05/31/23 00:30 05/31/23 00:20 05/31/23 00:10 PG Care Time/CCT Total # of Minutes Spent Total Time Spent with Patient: Total time spent is greater than 50% in coordination of care (as documented) at patient's floor/unit and/or counseling patient: Coding Level of Care Code 53085 INT INP/OBS CARE 3/75MIN Diagnoses Hypoxia R09.02 Morbid obesity E66.01 Rheumatoid arthritis M06.9 History of COVID-[address] scan, chest R93.89
--- NOTE | 2023-05-31 18:30 | Communication Note ---
Date of Service: May 31, 2023 Pt seen multiple times during the day. Originally asked to see pt while she was still in the ED and she stated that she wanted to go home. Was seen by pulmonology and pt agreed to further 2 step evaluation for oxygen need, CM input to set up oxygen for home use and discharge in the early AM. Pt states that she has a derm appt tomorrow at about 11AM that she states that she has waited over a year and half for, and does not want to miss it. States that her oxygen tanks were taken back by the company after noncompliance but she is willing to use it regularly now. Later once a room was available, notified that pt did not want to be placed in a "covid room". On arrival, pt was sitting in wheelchair outside of the room. She stated that she does NOT have covid and she will fransisco if she is placed in a room with another covid patient. States that she is immunocompromised and is very susceptible to getting infections. Pt was advised that she is still testing positive for covid and given her immunosuppression, the virus is likely still lingering. Explained that the concern was putting her in a room with someone withOUT covid, and having her transmit the virus to them. Pt eventually agreed to being placed in a room alone with covid precautions. Was placed in room 252 For further info regarding pt's admission and clinical course, please see H&P from the same date.
[2023-05-31] MEDS ORDERED: VENLAFAXINE HCL 37.5 MG TAB PO SCH (21:00)
[2023-05-31] MEDS: DOXYCYCLINE HYCLATE 100 MG CAP PO SCH (21:58)
[2023-06-01 04:53] LABS: Basophils # (auto) 0.04 K/uL (0.00-0.20); Basophils % (auto) 0.6 %; Eosinophils # (auto) 0.47 K/uL (0.00-0.50); Eosinophils % (auto) 7.6 %; Hematocrit (blood only) 35.6 % (37.0-47.0); Hemoglobin 11.8 g/dl (12.0-16.0); Immature Granulocytes # (auto) 0.02 K/uL (0.01-0.20); Immature Granulocytes % (auto) 0.3 %; Lymphocytes # (auto) 1.44 K/uL (1.20-3.40); Lymphocytes % (auto) 23.3 %; Mean Corpuscular Hgb Conc 33.1 g/dL (32.0-36.0); Mean Corpuscular Volume 96.5 fL (80.0-100.0); Mean Platelet Volume 9.8 fL (9.4-12.4); Monocytes # (auto) 0.43 K/uL (0.11-0.59); Monocytes % (auto) 6.9 %; Neutrophils # (auto) 3.79 K/uL (1.40-6.50); Neutrophils % (auto) 61.3 %; Platelet Count 199 K/uL (130-400); RDW Standard Deviation 51.4 fL (36.4-46.3); Red Blood Count 3.69 M/uL (4.20-5.40); White Blood Count 6.19 K/ul (4.8-10.8)
[2023-06-01 05:03] LABS: Albumin Level 4.1 gm/dl (3.4-5.0); BUN Creatinine Ratio 22.4 (10-20); Calcium 10.4 mg/dl (8.6-10.3); Creatinine Clr Calc Pharmacy 26.6 ml/min; Est GFR (African American) 28.5 ml/min; Est GFR (Non-African American) 24.5 ml/min; Magnesium 1.6 mg/dl (1.7-2.4); Phosphorus 4.1 mg/dl (2.5-4.9); Potassium 3.6 mmol/L (3.5-5.1); Total Protein 6.1 gm/dl (6.0-8.3)
--- NOTE | 2023-06-01 06:13 | Electrocardiogram Report ---
Test Reason : Blood Pressure : / mmHG Vent. Rate : 081 BPM Atrial Rate : 081 BPM P-R Int : 128 ms QRS Dur : 152 ms QT Int : 432 ms P-R-T Axes : 088 266 103 degrees QTc Int : 501 ms AV dual-paced rhythm Abnormal ECG When compared with ECG of 01-MAY-2023 14:46, Vent. rate has decreased BY 4 BPM Confirmed by Nathan Gutierrez ([id number]) on 06/01/2023 6:12:31 AM Referred By: REFERRED SELF Confirmed By:Nathan Gutierrez
--- NOTE | 2023-06-01 08:10 | Discharge Summary ---
Discharge Summary Date of Service June 01, 2023 Notes For Next Care Provider Please ensure close pulmonology followup Please encourage oxygen use at home Please ensure resolution of RLE cellulitis Medication Changes From Visit Doxycycline 100mg BID for 9 more days Admission HPI Per Admitting Provider History obtained from patient and records. Medical history significant for chronic diastolic heart failure (EF 60 to 65%, TTE 2022), history of nonischemic cardiomyopathy status post biventricular ICD, PAF on Eliquis, third-degree AV block as per records, valvular heart disease (mild MR/TR), pulmonary hypertension, ANN (CPAP intolerance), CRI (baseline creatinine 2s), DM insulin requiring, rheumatoid arthritis. Recent confinement last month for hypoxemia secondary to COVID-19 infection. Patient completed Decadron course. Shortness of breath slightly improved, cough symptoms resolved on discharge. Patient noted worsening shortness of breath symptoms even at rest the last few days. No unusual cough symptoms. Patient denies chest pain or fluid retention. Right lower leg injury/bruising from fall a few days ago. No fever, no chills. Patient sent to ER for evaluation. O2 sats 80s upon arrival at the ER IV Lasix administered at the ER. 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 resident Admission Exam Per Admitting Provider GENERAL: Comfortable, pleasant, slightly hard of hearing, obese, no respiratory distress SKIN: Normal color, warm HEENT: [place] palpebral conjunctivae, no ptosis, dry buccal mucosa, nasal cannula in place NECK : Supple, short neck, no tenderness CHEST : Decreased breath sounds, no tenderness HEART : RRR, systolic murmur ABDOMEN: Some distention, nontender EXTREMITIES : RLE erythema with dressing, minimal tenderness, no other conspicuous deformities noted NEUROLOGIC : Coherent, no facial asymmetry, slightly hard of hearing, no other gross focality Principal Dx & Hospital Course #1 = Principal Diagnosis (1) Hypoxemia: (2) Acute hypoxic respiratory failure: (3) COVID-19 in immunocompromised patient: (4) Morbid obesity: Plan History COVID-19 illness last month Underlying pulmonary hypertension, ANN/CPAP noncompliance Traumatic RLE cellulitis, no sepsis for now Mild hypercalcemia chronic diastolic heart failure (EF 60 to 65%, TTE 2022), equivocal volume status history of nonischemic cardiomyopathy status post biventricular ICD PAF on Eliquis, paced rhythm third-degree AV block as per records valvular heart disease (mild MR/TR) CKD, creatinine at baseline DM insulin requiring, well-controlled as of recent hemoglobin A1c of 7.1 last month rheumatoid arthritis, at baseline Pt's acute hypoxic respiratory failure was treated with supplemental O2. She underwent testing that showed she needed 2L at rest and with activity. Pt agrees to use at home. Discharged with oxygen once more for home use. Pulmonology consult re: respiratory failure, underlying pulm hypertension -recommending updated echocardiogram -recommending further evaluation for possible interstitial lung disease, notes "may have a mild form of interstitial lung disease related to rheumatoid arthritis or other condition. UIP/IPF also in the differential." Doxycycline for RLE cellulitis, discharged with 9 more days and pcp followup Held calcitriol for elevated calcium, but ionized calcium was normal, can resume on discharge with pcp followup Discharge Exam General: Alert, oriented. No acute distress Skin: No noted rashes or bruises Psych: Appropriate mood and affect Neuro: No gross deficits HEENT: NC/AT Chest: Nontender to palpation. CV: RRR Resp: Breath sounds coarse at the bases, no increased effort of breathing. Abdomen: Soft, nontender, nondistended. Extremities: ++ edema in lower extremities bilaterally. Updated Medication List Medication Instructions Recorded Confirmed Type Systane Lubricant Eye Drops 1 drp OPB TID 05/30/23 05/30/23 History acetaminophen 325 mg tablet 650 mg PO Q6 PRN Fever Or Pain 05/30/23 05/30/23 History albuterol sulfate 90 mcg/actuation 2 inh inhalation Q8 PRN Shortness 05/30/23 05/30/23 History aerosol inhaler Of Breath Or Wheezing apixaban 2.5 mg tablet (Eliquis) 2.5 mg PO BID 05/30/23 05/30/23 History atorvastatin 10 mg tablet 10 mg PO DAILY 05/30/23 05/30/23 History benzonatate 200 mg capsule 200 mg PO TID PRN Cough 05/30/23 05/30/23 History buspirone 5 mg tablet 5 mg PO BID PRN Anxiety 05/30/23 05/30/23 History calcitriol 0.25 mcg capsule 0.25 mcg PO DAILY 05/30/23 05/30/23 History carbamide peroxide 6.5 % ear drops 5 - 10 drp otic (ear) BID PRN .Wax 05/30/23 1 07/31/22 History removal cholecalciferol (vitamin D3) 50 2,000 unit PO DAILY 05/30/23 05/30/23 History mcg (2,000 unit) capsule (Vitamin D3) dextromethorphan-guaifenesin 5 10 ml PO Q8H PRN Cough 05/30/23 05/30/23 History mg-100 mg/5 mL oral liquid (Robitussin Honey Max DM) fluticasone propionate 50 2 spray intranasal DAILY 05/30/23 05/30/23 History mcg/actuation nasal spray,suspension (Flonase Allergy Relief) folic acid 1 mg tablet 2 mg PO DAILY 05/30/23 05/30/23 History furosemide 40 mg tablet (Lasix) 40 mg PO Q OTHER DAY 05/30/23 05/30/23 History gabapentin 100 mg capsule 100 mg PO BID 05/30/23 05/30/23 History gabapentin 300 mg capsule 300 mg PO DAILY 05/30/23 05/30/23 History hydrocodone 5 mg-acetaminophen 325 1 tab PO Q4H PRN .SEVERER PIAN 05/30/23 05/30/23 History mg tablet insulin glargine U-300 conc 300 25 unit subcut DAILY 05/30/23 05/30/23 History unit/mL (1.5 mL) subcutaneous pen (Toujeo SoloStar U-300 Insulin) insulin lispro 100 unit/mL 1 sliding scale dose subcut TIDM 05/30/23 05/30/23 History subcutaneous solution (Humalog U-100 Insulin) loperamide 2 mg tablet 2 mg PO DIRECTED PRN Diarrhea 05/30/23 05/30/23 History lorazepam 0.5 mg tablet 0.5 mg PO BID PRN Anxiety 05/30/23 05/30/23 History methotrexate sodium 2.5 mg tablet 5 mg PO WE 05/30/23 05/30/23 History metoprolol succinate 200 mg 200 mg PO DAILY 05/30/23 05/30/23 History tablet,extended release 24 hr montelukast 10 mg tablet 10 mg PO DAILY 05/30/23 05/30/23 History pantoprazole 40 mg tablet,delayed 40 mg PO BID 05/30/23 05/30/23 History release polyethylene glycol 3350 17 gram 17 g PO DAILY PRN Constipation 05/30/23 05/30/23 History oral powder packet (Miralax) spironolactone 25 mg tablet 25 mg PO 3XWK 05/30/23 05/30/23 History venlafaxine 37.5 mg tablet 37.5 mg PO HS 05/30/23 05/30/23 History vitamin B complex 1 tab PO DAILY 05/30/23 05/30/23 History doxycycline hyclate 100 mg capsule 100 mg PO BID #18 caps 06/01/23 Rx Hospital Stay Data Consultations 05/30/23 21:16 ED Decision to Admit Stat 05/31/23 05:08 Consult Pulmonology Routine Diagnostic Imagining Performed 05/31/23 00:03 CT chest diagnostic wo con Stat 05/31/23 00:04 CT tib/fib RT wo con Stat Chest X-Ray 05/30/23 19:41 SINGLE VIEW CHEST CLINICAL HISTORY: Atypical chest pain. FINDINGS: An AP, portable, upright chest radiograph is compared to study dated 05/01/2023. Correlation is made with chest CT dated 10/21/2022. A 3-lead cardiac ICD is unchanged in position. The heart is enlarged noting atherosclerotic calcification of the thoracic aorta. The pulmonary vascular is noncongested. There is bibasilar scarring/atelectasis. No airspace consolidation or large pleural effusion is identified. No pneumothorax is seen. The skeletal structures are osteopenic. The bony thorax is grossly intact. There is chronic deformity of the right proximal humerus. IMPRESSION: 1. Cardiomegaly and AICD without radiographic evidence of congestive failure. 2. No airspace consolidation or large pleural effusion is identified. ACT 112: Negative or not required by law. Electronically signed by: Carlyle Lovelace M.D. 05/30/2023 11:[address] 05/31/23 00:03 Exam(s): CT CHEST Without Contrast EXAM: CT Chest Without Intravenous Contrast CLINICAL HISTORY: Reason for exam: low o2. TECHNIQUE: Axial computed tomography images of the chest without intravenous contrast. Automated exposure control was utilized for the study. A dose lowering technique was utilized adhering to the principles of ALARA. COMPARISON: Chest x-ray 05/30/2023, CT chest 10/21/2022.. FINDINGS: Lungs: Left basilar atelectasis.. No mass. No consolidation. Unchanged mild diffuse interstitial scarring. Pleural space: Unremarkable. No pneumothorax. No pleural effusion. Heart: No cardiomegaly. No significant pericardial effusion. Coronary artery calcifications. Bones/joints: Degenerative changes of the spine and bilateral shoulders. No acute fracture. Soft tissues: Unremarkable. Vasculature: Atherosclerotic vascular calcifications.. 4.1 cm AP diameter ascending thoracic aortic aneurysm. Lines: Left subclavian dual-chamber pacemaker with AICD. Abdomen: Redemonstrated pneumobilia. IMPRESSION: No significant change from 10/21/2022. 4.1 cm AP diameter ascending aortic aneurysm. Mild chronic interstitial fibrotic changes. No focal pneumonia. Minimal left basilar atelectasis. Otherwise no change. Electronically signed by: Ry Jeffers M.D. 05/31/23 04:[address] 05/31/23 00:04 Exam(s): CT EXTREMITY RIGHT LOWER Without Contrast EXAM: CT Right Lower Extremity Without Intravenous Contrast CLINICAL HISTORY: Reason for exam: RLE bruising/swelling. TECHNIQUE: Axial computed tomography images of the right lower extremity without intravenous contrast. Automated exposure control was utilized for the study. A dose lowering technique was utilized adhering to the principles of ALARA. COMPARISON: No relevant prior studies available. FINDINGS: Bones/joints: There is right knee arthroplasty. Moderate degenerative arthritic changes seen at the ankle joint. No acute fracture. No dislocation. Soft tissues: Multiple areas of soft tissue edema identified in the right leg, most prominently seen around the right ankle. No soft tissue abscess. No soft tissue air. Vasculature: Extensive atherosclerotic calcifications are seen in the arteries of the right leg. IMPRESSION: 1. Soft tissue edema most prominently around the right ankle, could be from cellulitis. No soft tissue abscess 2. No acute fracture Electronically signed by: Teto Stewart MD 05/31/23 05:28 AM Pending Results Patient Have Any Pending Studies at Discharge: No Discharge Instructions Given to Patient (Per Discharging Provider) Ms. Taylor, You were admitted as you had an increased oxygen requirement once more. You were seen by the hand woven carpet and rug mender and they are recommending that we discharge you home with oxygen with further followup to determine the true nature of your lung disease. You also tested positive for covid. While this could be a new infection, it is also likely that due to your immunosuppression from your rheumatoid arthritis medications, that your body is slowly clearing out the virus. Please be careful at home with your contacts as you could still be shedding the virus. We are discharging you home with oxygen. Please use as directed. We treated you for a cellulitis infection of you right lower extremity. Discharging you with antibiotics to help with that for an additional 9 days. Please keep close follow up with your primary care provider to ensure resolution. Again, please keep close follow up with both your primary care provider and hand woven carpet and rug mender after discharge. It was a pleasure taking care of you while you were here. Total Time Total Time Spent Total Time Spent (In Minutes): > 30 minutes
[2023-06-01] MEDS ORDERED: MAGNESIUM OXIDE 400 MG TAB PO ONE (08:28)
[2023-06-01] MEDS ORDERED: LANTUS PER UNIT CHARGE SQ SCH (09:00)
[2023-06-01] MEDS: DOXYCYCLINE HYCLATE 100 MG CAP PO SCH (09:07)
[2023-06-01] MEDS: METOPROLOL SUCC 50MG EXT REL TAB PO SCH (09:07)
[2023-06-01] MEDS: FOLIC ACID 1 MG TAB PO SCH (09:08)
[2023-06-01] MEDS: APIXABAN 2.5 MG TAB PO SCH (09:08)
[2023-06-01] MEDS: PANTOprazole 40 MG TAB PO SCH (09:08)
[2023-06-01] MEDS: GABAPENTIN 100 MG CAP PO SCH (09:08)
[2023-06-01] MEDS: ARTIFICIAL TEARS OP SCH (09:09)
[2023-06-01] MEDS: GABAPENTIN 300 MG CAP PO SCH (09:09)
[2023-06-01] MEDS: ATORVASTATIN 10 MG TAB PO SCH (09:09)
[2023-06-01] MEDS: FLUTICASONE PROPIONATE NA SPR 16 GM BTL SCH (09:09)
[2023-06-01] MEDS: VITAMIN B COMPLEX TAB PO SCH (09:10)
[2023-06-01] MEDS: MONTELUKAST SODIUM 10 MG TABLET PO SCH (09:10)
[2023-06-01] MEDS: INSULIN ASPART PER UNIT CHARGE SC SCH (09:20)
--- NOTE | 2023-06-01 09:58 | Communication Note ---
Date of Service: June 01, 2023 By CMS guidelines, a determination that the admission or continued stay is not medically necessary has been made by a member of the UR committee and a physician for this hospital stay, therefore a Code 44 will be completed and the Inpatient admission will be changed to outpatient.
--- NOTE | 2023-06-01 15:17 | Communication Note ---
Date of Service: June 01, 2023 By CMS guidelines, a determination that the admission or continued stay is not medically necessary has been made by a member of the UR committee and trey gillette for this hospital stay, therefore a Code 44 will be completed and the Inpatient admission will be changed to outpatient.
--- NOTE | 2023-06-01 19:21 | XCELERA ---
[id number]
== END 2023-06-01 10:24 | disposition home or self-care (01) ==
LOC: ED 19:21 → EDINP 05-31 01:02 → INTOOBSV 05-31 01:02 → 2W 05-31 01:25 → 2N 05-31 13:15 → 2W 05-31 14:06

== ENCOUNTER 2023-09-13 10:33 | Inpatient (IN) ==
[2023-09-13 11:09] LABS: Basophils # (auto) 0.03 K/uL (0.00-0.20); Basophils % (auto) 0.4 %; Eosinophils # (auto) 0.16 K/uL (0.00-0.50); Eosinophils % (auto) 2.2 %; Hematocrit (blood only) 36.2 % (37.0-47.0); Hemoglobin 11.6 g/dl (12.0-16.0); Immature Granulocytes # (auto) 0.04 K/uL (0.01-0.20); Immature Granulocytes % (auto) 0.6 %; Lymphocytes # (auto) 1.09 K/uL (1.20-3.40); Lymphocytes % (auto) 15.3 %; Mean Corpuscular Hemoglobin 31.9 pg (25.0-34.0); Mean Corpuscular Volume 99.5 fL (80.0-100.0); Mean Platelet Volume 9.1 fL (9.4-12.4); Monocytes # (auto) 0.52 K/uL (0.11-0.59); Monocytes % (auto) 7.3 %; Neutrophils % (auto) 74.2 %; Platelet Count 221 K/uL (130-400); RDW Coefficient of Variation 15.1 % (11.5-14.5); RDW Standard Deviation 53.4 fL (36.4-46.3); Red Blood Count 3.64 M/uL (4.20-5.40); White Blood Count 7.14 K/ul (4.8-10.8)
[2023-09-13 11:25] LABS: Alanine Aminotransferase 44 U/L (7-52); Albumin Globulin Ratio 1.5 (0.9-2); Albumin Level 3.9 gm/dl (3.4-5.0); Alkaline Phosphatase 99 U/L (34-104); Anion Gap 6 (3-11); Aspartate Aminotransferase 47 U/L (13-39); BUN Creatinine Ratio 18.3 (10-20); Bilirubin,Total 0.6 mg/dl (0.2-1.0); Blood Urea Nitrogen 34 mg/dl (6-23); Calcium 9.3 mg/dl (8.6-10.3); Carbon Dioxide 32 mmol/L (21-32); Chloride 95 mmol/L (98-107); Est GFR (African American) 27.9 ml/min; Est GFR (Non-African American) 24.1 ml/min; Globulin 2.6 gm/dl (2.5-4.0); Glucose 242 mg/dl (70-99(Fasting)); Sodium 133 mmol/L (136-145); Total Protein 6.5 gm/dl (6.0-8.3)
[2023-09-13] MEDS: fentaNYL citrate PF 100 MCG/2 ML VIAL IV STA (11:45)
--- NOTE | 2023-09-13 11:48 | Emergency Department Note ---
Impression & Plan Closed compression fracture of body of L1 vertebra ED Provider Note Provider: Tawanda Bach MD DATE OF SERVICE: 09/13/2023 CHIEF COMPLAINT: Worsening low back pain HISTORY OF PRESENT ILLNESS: Patient is a 88-year-old female history of AICD, atrial fibrillation on Eliquis, CKD, diabetic neuropathy, diabetes, hypertension, arthritis presenting here today with son for evaluation of worsening back pain with sciatica over the past week and a half or so. Both patient and patient's son provide history. Report patient has had some ongoing back issues. Has been using some tramadol recently from her primary doctor's office. Had x-rays last week reportedly without acute fractures of her back. While it reported that she did not suffer a true fall did slide to the ground by the rough report. Denies striking her head. Denies head neck pain. Denies chest pain or abdominal pain. Pain in the low back region rating to both hips and down both legs. Has had some constipation but this has been improving recently. Due to uncontrolled worsening pain came here today and are interested in referral to Dr. Rosales. Patient stable on her chronic oxygen. Patient reports a little bit of chronic unchanged numbness again in the lower extremities for which she has had physical therapy before. PAST MEDICAL HISTORY: As noted above MEDICATIONS: Reviewed home medication list SOCIAL HISTORY: Resides at [facility] PHYSICAL EXAM: GENERAL: alert and oriented in no acute distress on stretcher Head: normocephalic and atraumatic EYES: No injection, discharge or icterus. NECK: Trachea midline ENT: Mucous membranes pink and moist. LUNGS: Airway patent. No retractions. Breath sounds clear with good air entry bilaterally. HEART: Regular rate and rhythm. No chest wall tenderness ABDOMEN: Soft and non-tender, without guarding or rebound. No bilateral flank tenderness. SKIN: Acyanotic, warm, dry, without rashes EXTREMITIES: Without swelling, tenderness or deformity NEUROLOGICAL: No focal deficits. No aphasia. No facial droop or slurred speech. PDMP was checked without noted issue. Patient's laboratory studies and imaging reviewed. Differential includes Musculoskeletal, disc herniation, fracture, metastatic disease, cord compression, discitis, sciatica, cauda equina, infection, aortic disease, renal colic, gastrointestinal, as well as other pathologies. IMPRESSION/MEDICAL DECISION MAKING: No significant trauma history reported. Is on anticoagulants. Worsening pain with sciatic symptoms. Anticoagulated lower suspicion for DVT or clot. No significant trauma history and lower suspicion for occult bleed but will obtain a CT of the lumbar spine to exclude any bleeding issues here or evidence of occult fracture. Has had outpatient x-rays with reports in the patient's position that I reviewed in the room without significant findings beyond arthritic changes. No significant acute new neurological deficits reported or noted. Will try a small amount of fentanyl to help with pain but the patient does chronically use Ativan and has recently been using some tramadol. Stable on her chronic O2. Will monitor carefully for any respiratory distraction. Fairly benign abdomen otherwise and I doubt acute intra-abdominal pathology such as diverticulitis, volvulus, bowel obstruction, perforation among others. Not a candidate for MRI given her AICD but low suspicion this represents cauda equina. Family and patient question referral and evaluation by Dr. Rosales. Feel this would be reasonable as an outpatient but does not do inpatient/ER evaluations. Patient evidently has not seen before but other family members have. Basic blood work was ordered from triage with stable mild anemia. No leukocytosis. Stable CKD without significant electrolyte abnormalities with mild hyponatremia noted. Does not seem consistent with lack of nausea or vomiting to represent pancreatitis or hepatitis. CT of the lumbar spine with an L1 endplate compression fracture. Discussed with patient and son as well as patient's daughter via phone. Pain has improved here some. She has concerns about ability to function at home with this pain given the personal-care status at [facility]. Shared decision making she was to stay overnight to ensure her pain regiment is controlling her pain as well as not causing oversedation or respiratory issues with her chronic respiratory problems. Hospitalist team contacted. DIAGNOSIS: Low back pain, sciatica DISPOSITION: Hospitalist will evaluate Patient was agreeable with this plan. Past Med/Surg History Medical History Abnormal CT scan, chest History of COVID-19 Degenerative lumbar spinal stenosis COVID-19 (~03/2021) Chronic diarrhea Diabetic neuropathy Degenerative disc disease Diabetes mellitus, type 2 Hx of squamous cell carcinoma Atrial fibrillation Anxiety and depression CARRILLO (dyspnea on exertion) Sensorineural hearing loss (SNHL) of both ears Chronic systolic congestive heart failure History of basal cell carcinoma Biventricular ICD (implantable cardioverter-defibrillator) in place (2015) Dyslipidemia GERD without esophagitis Hypertension PAC (premature atrial contraction) Rheumatoid arthritis Stage III chronic kidney disease Third degree AV block Non-ischemic cardiomyopathy Surgical History History of anesthesia reaction History of esophagogastroduodenoscopy (EGD) History of colonoscopy History of tooth extraction History of cataract surgery S/P tubal ligation S/P total knee arthroplasty S/P cholecystectomy Family History Father Heart disease Mother Diabetes Heart disease Myocardial infarction Family history of diabetes mellitus Grandfather (Maternal) Prostate cancer Family history of diabetes mellitus Other Family history non-contributory No family history of adverse response to anesthesia Denies family history of Ovarian cancer Breast cancer Colorectal cancer Social History Smoking Status: Never smoker Second Hand Exposure: No; Do You Dip or Chew Tobacco: Yes; Hx Alcohol Use: No Hx Substance Use: No Preferred Language: Kyrgyz Communication Ability: Effective Communication Ability Comment: pt does have earring aids Visual Impairment: No Limitations Hearing Ability: Use of Hearing Aid Bread Jockey Required: No Beliefs That Will Affect Care: None marital status: Single Current Living Situation: Personal Care Facility Current Living Situation Comment: pt lives alone, has daughter and son check on her current occupational status: retired Feels Safe at Home: Yes Childhood Exposure to Second-Hand Smoke: Yes Diet: regular Dental Care, Regularly: Yes Physical Activity Frequency: Does not Exercise Seatbelt Use: always Sunscreen Use: Yes Assistive Devices: Glasses, Hearing Aid - Bilateral, Walker and Wheelchair Allergies Allergies Allergy/AdvReac Type Severity Reaction Status Date / Time amiodarone AdvReac Intermediate gi distress Verified 09/09/23 14:18 aspirin AdvReac Intermediate history of Verified 09/09/23 14:18 ulcers nortriptyline AdvReac Unknown DOESN'T Verified 09/09/23 14:18 REMEMBER Home Meds Home Medications Medication Instructions Recorded Confirmed Systane Lubricant Eye Drops 1 drp OPB TID 05/30/23 09/13/23 acetaminophen 325 mg tablet 650 mg PO Q6 PRN Fever Or Pain 05/30/23 09/13/23 albuterol sulfate 90 mcg/actuation 2 inh inhalation Q8 PRN Shortness 05/30/23 09/13/23 aerosol inhaler Of Breath Or Wheezing apixaban 2.5 mg tablet (Eliquis) 2.5 mg PO BID 05/30/23 09/13/23 atorvastatin 10 mg tablet 10 mg PO DAILY 05/30/23 09/13/23 benzonatate 200 mg capsule 200 mg PO TID PRN Cough 05/30/23 09/13/23 buspirone 5 mg tablet 5 mg PO BID PRN Anxiety 05/30/23 09/13/23 carbamide peroxide 6.5 % ear drops 5 - 10 drp otic (ear) BID PRN .Wax 05/30/23 09/13/23 removal cholecalciferol (vitamin D3) 50 2,000 unit PO DAILY 05/30/23 09/13/23 mcg (2,000 unit) capsule (Vitamin D3) dextromethorphan-guaifenesin 5 10 ml PO Q8H PRN Cough 05/30/23 09/13/23 mg-100 mg/5 mL oral liquid (Robitussin Honey Max DM) fluticasone propionate 50 2 spray intranasal DAILY PRN Other 05/30/23 09/13/23 mcg/actuation nasal spray,suspension (Flonase Allergy Relief) folic acid 1 mg tablet 2 mg PO DAILY 05/30/23 09/13/23 gabapentin 100 mg capsule 100 mg PO BID 05/30/23 09/13/23 gabapentin 300 mg capsule 300 mg PO DAILY 05/30/23 09/13/23 insulin glargine U-300 conc 300 25 unit subcut DAILY 05/30/23 09/13/23 unit/mL (1.5 mL) subcutaneous pen (Toujeo SoloStar U-300 Insulin) insulin lispro 100 unit/mL 1 sliding scale dose subcut TIDM 05/30/23 09/13/23 subcutaneous solution (Humalog U-100 Insulin) loperamide 2 mg tablet 2 mg PO DIRECTED PRN Diarrhea 05/30/23 09/13/23 lorazepam 0.5 mg tablet 0.5 mg PO BID PRN Anxiety 05/30/23 09/13/23 methotrexate sodium 2.5 mg tablet 5 mg PO .Wednesday05/30/23 09/13/23 metoprolol succinate 200 mg 200 mg PO DAILY 05/30/23 09/13/23 tablet,extended release 24 hr montelukast 10 mg tablet 10 mg PO DAILY 05/30/23 09/13/23 pantoprazole 40 mg tablet,delayed 40 mg PO BID 05/30/23 09/13/23 release spironolactone 25 mg tablet 25 mg PO 3XWK 05/30/23 09/13/23 venlafaxine 37.5 mg tablet 37.5 mg PO HS 05/30/23 09/13/23 vitamin B complex 1 tab PO DAILY 05/30/23 09/13/23 calcium carbonate 300 mg (750 mg) 300 mg PO DAILY PRN Indigestion 08/18/23 09/13/23 chewable tablet (Calcium Antacid) docusate sodium 100 mg capsule 100 mg PO DAILY 08/18/23 09/13/23 (Colace) lidocaine 4 % topical patch 1 patch topical DAILY PRN Other 08/26/23 09/13/23 (AsperFlex (lidocaine)) Ky Jelly 1 applic miscellaneous DAILY PRN 09/13/23 09/13/23 dry nostrils due to oxygen use furosemide 40 mg tablet (Lasix) 40 mg PO DAILY 09/13/23 09/13/23 tramadol 50 mg tablet 50 mg PO Q4H PRN Pain 09/13/23 09/13/23 Previous Rx's Medication Instructions Recorded hydrocortisone 2.5 % topical cream 1 applic ND BID hemorrhoids 2 08/25/23 with perineal applicator weeks #30 grams polyethylene glycol 3350 17 17 g PO DAILY #510 grams 08/25/23 gram/dose oral powder (Miralax) Results & Data (ED) Vital Signs Vital Signs - 24 hr 09/13/23 10:36 09/13/23 12:13 09/13/23 12:20 Temperature 36.6 C Temperature Source Oral Pulse Rate 82 92 H 80 Pulse Rate [Finger] Pulse Rate from SpO2 Sensor 88 80 Pulse Rhythm Regular Pulse Strength Normal Respiratory Rate 20 18 18 Respiratory Effort / Characteristics Non-Labored Spontaneous Respiratory Depth Normal Respiratory Pattern Regular Blood Pressure 123/80 Blood Pressure [Left Arm] Blood Pressure Mean 94 Blood Pressure Mean [Left Arm] Blood Pressure Position Sitting Pulse Oximetry 98 98 91 Oxygen Delivery Method Room Air Sepsis Recent Fever Within 48 Hours No Sepsis New/Unexplained Change in Mental Status No Sepsis Action Taken by Nursing No Action Required 09/13/23 12:21 09/13/23 12:22 09/13/23 12:30 Temperature Temperature Source Pulse Rate 80 Pulse Rate [Finger] 80 Pulse Rate from SpO2 Sensor 80 Pulse Rhythm Pulse Strength Respiratory Rate 20 14 Respiratory Effort / Characteristics Non-Labored Spontaneous Respiratory Depth Normal Respiratory Pattern Blood Pressure 159/91 H Blood Pressure [Left Arm] 173/88 H Blood Pressure Mean 113 Blood Pressure Mean [Left Arm] 116 Blood Pressure Position Pulse Oximetry 98 98 95 Oxygen Delivery Method Room Air Room Air Sepsis Recent Fever Within 48 Hours Sepsis New/Unexplained Change in Mental Status Sepsis Action Taken by Nursing 09/13/23 12:40 09/13/23 12:43 09/13/23 12:50 Temperature Temperature Source Pulse Rate 81 89 84 Pulse Rate [Finger] Pulse Rate from SpO2 Sensor 81 83 Pulse Rhythm Pulse Strength Respiratory Rate 17 13 Respiratory Effort / Characteristics Respiratory Depth Respiratory Pattern Blood Pressure Blood Pressure [Left Arm] Blood Pressure Mean Blood Pressure Mean [Left Arm] Blood Pressure Position Pulse Oximetry 94 94 Oxygen Delivery Method Sepsis Recent Fever Within 48 Hours Sepsis New/Unexplained Change in Mental Status Sepsis Action Taken by Nursing 09/13/23 13:00 09/13/23 13:10 09/13/23 13:20 Temperature Temperature Source Pulse Rate 82 81 82 Pulse Rate [Finger] Pulse Rate from SpO2 Sensor 83 81 81 Pulse Rhythm Pulse Strength Respiratory Rate 18 14 17 Respiratory Effort / Characteristics Respiratory Depth Respiratory Pattern Blood Pressure 166/99 H Blood Pressure [Left Arm] Blood Pressure Mean 121 Blood Pressure Mean [Left Arm] Blood Pressure Position Pulse Oximetry 97 92 96 Oxygen Delivery Method Sepsis Recent Fever Within 48 Hours Sepsis New/Unexplained Change in Mental Status Sepsis Action Taken by Nursing 09/13/23 13:30 09/13/23 13:30 09/13/23 13:40 Temperature Temperature Source Pulse Rate 82 81 Pulse Rate [Finger] Pulse Rate from SpO2 Sensor 82 81 Pulse Rhythm Pulse Strength Respiratory Rate 19 18 Respiratory Effort / Characteristics Respiratory Depth Respiratory Pattern Blood Pressure 145/85 H Blood Pressure [Left Arm] Blood Pressure Mean 117 Blood Pressure Mean [Left Arm] Blood Pressure Position Pulse Oximetry 97 97 Oxygen Delivery Method Sepsis Recent Fever Within 48 Hours Sepsis New/Unexplained Change in Mental Status Sepsis Action Taken by Nursing 09/13/23 13:50 09/13/23 14:00 09/13/23 14:10 Temperature Temperature Source Pulse Rate 80 82 82 Pulse Rate [Finger] Pulse Rate from SpO2 Sensor 81 82 Pulse Rhythm Pulse Strength Respiratory Rate 21 18 20 Respiratory Effort / Characteristics Respiratory Depth Respiratory Pattern Blood Pressure 173/96 H Blood Pressure [Left Arm] Blood Pressure Mean 121 Blood Pressure Mean [Left Arm] Blood Pressure Position Pulse Oximetry 97 96 Oxygen Delivery Method Sepsis Recent Fever Within 48 Hours Sepsis New/Unexplained Change in Mental Status Sepsis Action Taken by Nursing 09/13/23 14:20 09/13/23 14:30 09/13/23 15:00 Temperature Temperature Source Pulse Rate 83 80 Pulse Rate [Finger] Pulse Rate from SpO2 Sensor Pulse Rhythm Pulse Strength Respiratory Rate 12 12 Respiratory Effort / Characteristics Respiratory Depth Respiratory Pattern Blood Pressure 174/110 H 180/129 H Blood Pressure [Left Arm] Blood Pressure Mean 131 135 Blood Pressure Mean [Left Arm] Blood Pressure Position Pulse Oximetry Oxygen Delivery Method Sepsis Recent Fever Within 48 Hours Sepsis New/Unexplained Change in Mental Status Sepsis Action Taken by Nursing 09/13/23 15:00 Temperature Temperature Source Pulse Rate 84 Pulse Rate [Finger] Pulse Rate from SpO2 Sensor 83 Pulse Rhythm Pulse Strength Respiratory Rate 12 Respiratory Effort / Characteristics Respiratory Depth Respiratory Pattern Blood Pressure Blood Pressure [Left Arm] Blood Pressure Mean Blood Pressure Mean [Left Arm] Blood Pressure Position Pulse Oximetry 97 Oxygen Delivery Method Sepsis Recent Fever Within 48 Hours Sepsis New/Unexplained Change in Mental Status Sepsis Action Taken by Nursing Laboratory Data 09/13/23 10:45 09/13/23 10:45 Lab Results 09/13/23 Range/Units 10:45 WBC 7.14 (4.8-10.8) K/ul RBC 3.64 L (4.20-5.40) M/uL Hgb 11.6 L (12.0-16.0) g/dl Hct 36.2 L (37.0-47.0) % MCV 99.5 (80.0-100.0) fL MCH 31.9 (25.0-34.0) pg MCHC 32.0 (32.0-36.0) g/dL RDW Std Deviation 53.4 H (36.4-46.3) fL RDW Coeff of Shai 15.1 H (11.5-14.5) % Plt Count 221 (130-400) K/uL MPV 9.1 L (9.4-12.4) fL Immature Gran % (Auto) 0.6 % Neut % (Auto) 74.2 % Lymph % (Auto) 15.3 % [place] % (Auto) 7.3 % Eos % (Auto) 2.2 % Baso % (Auto) 0.4 % Neut # (Auto) 5.30 (1.40-6.50) K/uL Lymph # (Auto) 1.09 L (1.20-3.40) K/uL [place] # (Auto) 0.52 (0.11-0.59) K/uL Eos # (Auto) 0.16 (0.00-0.50) K/uL Baso # (Auto) 0.03 (0.00-0.20) K/uL Immature Gran # (Auto) 0.04 (0.01-0.20) K/uL Sodium 133 L (136-145) mmol/L Potassium 4.0 (3.5-5.1) mmol/L Chloride 95 L (98-107) mmol/L Carbon Dioxide 32 (21-32) mmol/L Anion Gap 6 (3-11) BUN 34 H (6-23) mg/dl Creatinine 1.86 H (0.6-1.2) mg/dl Est Cr Clr Drug Dosing Not Reportable Est GFR ( Amer) 27.9 ml/min Est GFR (Non-Af Amer) 24.1 ml/min BUN/Creatinine Ratio 18.3 (10-20) Glucose 242 H (70-99(Fasting)) mg/dl Calcium 9.3 (8.6-10.3) mg/dl Total Bilirubin 0.6 (0.2-1.0) mg/dl AST 47 H (13-39) U/L ALT 44 (7-52) U/L Alkaline Phosphatase 99 (34-104) U/L Total Protein 6.5 (6.0-8.3) gm/dl Albumin 3.9 (3.4-5.0) gm/dl Globulin 2.6 (2.5-4.0) gm/dl Albumin/Globulin Ratio 1.5 (0.9-2) Administered Medications Acetaminophen (Acetaminophen 500 Mg Tab) 1,000 mg PO Q8H NIHARIKA Stop: 10/13/23 16:59 Last Admin: 09/13/23 17:58 Dose: 1,000 mg Documented By: ACC Insulin Aspart (Insulin Aspart Per Unit Charge) 0 units SC ACHS NIHARIKA Stop: 05/01/24 18:33 Last Admin: 09/13/23 18:43 Dose: Not Given Documented By: AMS Discontinued Medications Fentanyl Citrate (Fentanyl Citrate Pf 100 Mcg/2 Ml Vial) 50 mcg IV NOW STA Stop: 09/13/23 11:40 Last Admin: 09/13/23 11:45 Dose: 50 mcg Documented By: CRISTY Lorazepam 0.5 mg/ Syringe 0.5 mls @ 2 mls/min IV NOW STA Stop: 09/13/23 15:22 Last Admin: 09/13/23 15:46 Dose: 2 mls/min Documented By: ACC Imaging Data Radiologist's Impression: Lumbar Spine CT 09/13/23 11:39 CT lumbar spine wo con CLINICAL HISTORY: back pain, sciatic TECHNIQUE: Multidetector row helical CT of the lumbar spine was performed without administration of intravenous contrast. Coronal and sagittal reformations were obtained. Automated dose lowering techniques and/or adjustment according to patient size were utilized for this exam. CT DOSE: 1059.06 mGy.cm Comparison: Comparison is made to CT lumbar spine 05/10/2022 FINDINGS: For counting purposes, the last complete intervertebral disc space is considered L5-S1. There is an acute fracture of the superior endplate of L1 without extension to the posterior elements. Degenerative changes are noted in the visualized spine. Vertebral body alignment is within normal limits. Atherosclerotic changes are seen in the aorta. IMPRESSION: Acute fracture of the superior endplate of L1. No significant retropulsion and no involvement of the posterior elements. ACT 112: Negative or not required by law. Electronically signed by: Yon Quispe M.D. 09/13/2023 12:27 PM Discharge Plan Visit Data Chief Complaint: Back Injury/Pain Stated Complaint: LOWER BACK PAINS ED Provider: Tawanda Bach Discharge Problem: Closed compression fracture of body of L1 vertebra Patient Disposition: Admitted As Inpatient Discharge Instructions Interventions: ED Discharge Assessment Last Done: 09/13/23 17:55
--- NOTE | 2023-09-13 12:29 | CT Scan Report ---
CT lumbar spine wo con CLINICAL HISTORY: back pain, sciatic TECHNIQUE: Multidetector row helical CT of the lumbar spine was performed without administration of i ntravenous contrast. Coronal and sagittal reformations were obtained. Automated dose lowering techniq ues and/or adjustment according to patient size were utilized for this exam. CT DOSE: 1059.06 mGy.cm Comparison: Comparison is made to CT lumbar spine 05/10/2022 FINDINGS: For counting purposes, the last complete intervertebral disc space is considered L5-S1. There is an acute fracture of the superior endplate of L1 without extension to the posterior elements . Degenerative changes are noted in the visualized spine. Vertebral body alignment is within normal l imits. Atherosclerotic changes are seen in the aorta. IMPRESSION: Acute fracture of the superior endplate of L1. No significant retropulsion and no involvement of the posterior elements. ACT 112: Negative or not required by law. Electronically signed by: Yon Quispe M.D. 09/13/2023 12:27 PM
--- NOTE | 2023-09-13 14:17 | History & Physical Report ---
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 Pt reports recent mechanical fall, after which the worsening pain started. Work-up in the ED showed acute L1 superior end-plate fracture. Pt was referred for admission for pain management, possible evaluation by spine surgery. - Admit to med surg - PT/OT evaluations, fall precautions - Pain meds - scheduled acetaminophen, prn oxy for severe pain. Continue lidocaine patch. - Consult ortho spine for recommendations (2) Chronic hypoxic respiratory failure, on home oxygen therapy: Plan: Stable O2 requirements (3) Paroxysmal atrial fibrillation: Plan: Chronic, not currently in atrial fibrillation Continue anticoagulation (4) Rheumatoid arthritis: Plan: Chronic, stable Continue outpatient meds (5) DMII (diabetes mellitus, type 2): Plan: Chronic, stable Continue basal insulin, novolog sliding scale (6) Diabetic neuropathy: Plan: Chronic, stable Continue gabapentin (7) Chronic kidney disease, stage IV (severe): Plan: Creatinine appears at baseline Labs in the AM (8) GERD (gastroesophageal reflux disease): Plan: Chronic, stable Continue outpatient PPI therapy Plan Pt seen and reviewed with collaborating physician, Dr. Du. Plan of care discussed and as outlined above. Code Status: DNR/DNI per pt DVT Prophylaxis: on Eliquis BID, will continue Aissatou Ray PA-C History of Present Illness Chief Complaint: Back pain Primary Care Provider: Ry Gasca DO This is an 88 y/o female with chronic diastolic heart failure, nonischemic cardiomyopathy s/p biventricular ICD, PAF on Eliquis, prior 3rd degree heart block s/p PPM, mild MR/TR, pulmonary HTN, ANN intolerant to CPAP, insulin- requiring DM, rheumatoid arthritis, CKD, and chronic hypoxic respiratory failure requiring 2L of O2 at baseline who presented to the ED with acute on chronic back pain. Pt reports a fall over the weekend when she tripped on her slippers and fell landing on her buttocks. Since that fall, she has noticed worsening on her chronic back pain. The pain radiates down both of her legs, associated numbness and tingling which is chronic. She is unsure what she was taking for pain before the ED but thinks it may have been Tramadol or Tylenol. She reports whatever she took usually works for her pain but did not help since the fall. She denies weakness in the legs or sensation of the legs giving out on her. She denies any recent illness. Pt lives at [facility]. Otherwise ROS was limited as she became aggravated and stated that she had already answered these questions and didn't want to again. Allergies Allergy/AdvReac Type Severity Reaction Status Date / Time amiodarone AdvReac Intermediate gi distress Verified 09/09/23 14:18 aspirin AdvReac Intermediate history of Verified 09/09/23 14:18 ulcers nortriptyline AdvReac Unknown DOESN'T Verified 09/09/23 14:18 REMEMBER Home Medications Medication Instructions Recorded Confirmed Type Systane Lubricant Eye Drops 1 drp OPB TID 05/30/23 09/13/23 History acetaminophen 325 mg tablet 650 mg PO Q6 PRN Fever Or Pain 05/30/23 09/13/23 History albuterol sulfate 90 mcg/actuation 2 inh inhalation Q8 PRN Shortness 05/30/23 09/13/23 History aerosol inhaler Of Breath Or Wheezing apixaban 2.5 mg tablet (Eliquis) 2.5 mg PO BID 05/30/23 09/13/23 History atorvastatin 10 mg tablet 10 mg PO DAILY 05/30/23 09/13/23 History benzonatate 200 mg capsule 200 mg PO TID PRN Cough 05/30/23 09/13/23 History buspirone 5 mg tablet 5 mg PO BID PRN Anxiety 05/30/23 09/13/23 History carbamide peroxide 6.5 % ear drops 5 - 10 drp otic (ear) BID PRN .Wax 05/30/23 09/13/23 History removal cholecalciferol (vitamin D3) 50 2,000 unit PO DAILY 05/30/23 09/13/23 History mcg (2,000 unit) capsule (Vitamin D3) dextromethorphan-guaifenesin 5 10 ml PO Q8H PRN Cough 05/30/23 09/13/23 History mg-100 mg/5 mL oral liquid (Robitussin Honey Max DM) fluticasone propionate 50 2 spray intranasal DAILY PRN Other 05/30/23 09/13/23 History mcg/actuation nasal spray,suspension (Flonase Allergy Relief) folic acid 1 mg tablet 2 mg PO DAILY 05/30/23 09/13/23 History gabapentin 100 mg capsule 100 mg PO BID 05/30/23 09/13/23 History gabapentin 300 mg capsule 300 mg PO DAILY 05/30/23 09/13/23 History insulin glargine U-300 conc 300 25 unit subcut DAILY 05/30/23 09/13/23 History unit/mL (1.5 mL) subcutaneous pen (Toujeo SoloStar U-300 Insulin) insulin lispro 100 unit/mL 1 sliding scale dose subcut TIDM 05/30/23 09/13/23 History subcutaneous solution (Humalog U-100 Insulin) loperamide 2 mg tablet 2 mg PO DIRECTED PRN Diarrhea 05/30/23 09/13/23 History lorazepam 0.5 mg tablet 0.5 mg PO BID PRN Anxiety 05/30/23 09/13/23 History methotrexate sodium 2.5 mg tablet 5 mg PO .Wednesday05/30/23 09/13/23 History metoprolol succinate 200 mg 200 mg PO DAILY 05/30/23 09/13/23 History tablet,extended release 24 hr montelukast 10 mg tablet 10 mg PO DAILY 05/30/23 09/13/23 History pantoprazole 40 mg tablet,delayed 40 mg PO BID 05/30/23 09/13/23 History release spironolactone 25 mg tablet 25 mg PO 3XWK 05/30/23 09/13/23 History venlafaxine 37.5 mg tablet 37.5 mg PO HS 05/30/23 09/13/23 History vitamin B complex 1 tab PO DAILY 05/30/23 09/13/23 History calcium carbonate 300 mg (750 mg) 300 mg PO DAILY PRN Indigestion 08/18/23 09/13/23 History chewable tablet (Calcium Antacid) docusate sodium 100 mg capsule 100 mg PO DAILY 08/18/23 09/13/23 History (Colace) hydrocortisone 2.5 % topical cream 1 applic SC BID hemorrhoids 2 08/25/23 09/13/23 Rx with perineal applicator weeks #30 grams polyethylene glycol 3350 17 17 g PO DAILY #510 grams 08/25/23 09/13/23 Rx gram/dose oral powder (Miralax) lidocaine 4 % topical patch 1 patch topical DAILY PRN Other 08/26/23 09/13/23 H istory (AsperFlex (lidocaine)) Ky Jelly 1 applic miscellaneous DAILY PRN 09/13/23 09/13/23 History dry nostrils due to oxygen use furosemide 40 mg tablet (Lasix) 40 mg PO DAILY 09/13/23 09/13/23 History tramadol 50 mg tablet 50 mg PO Q4H PRN Pain 09/13/23 09/13/23 History Past Med/Surg History Medical History Abnormal CT scan, chest History of COVID-19 Degenerative lumbar spinal stenosis COVID-19 (~03/2021) Chronic diarrhea Diabetic neuropathy Degenerative disc disease Diabetes mellitus, type 2 Hx of squamous cell carcinoma Atrial fibrillation Anxiety and depression CARRILLO (dyspnea on exertion) Sensorineural hearing loss (SNHL) of both ears Chronic systolic congestive heart failure History of basal cell carcinoma Biventricular ICD (implantable cardioverter-defibrillator) in place (2015) Dyslipidemia GERD without esophagitis Hypertension PAC (premature atrial contraction) Rheumatoid arthritis Stage III chronic kidney disease Third degree AV block Non-ischemic cardiomyopathy Surgical History History of anesthesia reaction History of esophagogastroduodenoscopy (EGD) History of colonoscopy History of tooth extraction History of cataract surgery S/P tubal ligation S/P total knee arthroplasty S/P cholecystectomy Family History Father Heart disease Mother Diabetes Heart disease Myocardial infarction Family history of diabetes mellitus Grandfather (Maternal) Prostate cancer Family history of diabetes mellitus Other Family history non-contributory No family history of adverse response to anesthesia Denies family history of Ovarian cancer Breast cancer Colorectal cancer Social History Smoking Status: Unknown if ever smoked Second Hand Exposure: No; Do You Dip or Chew Tobacco: Yes; Hx Alcohol Use: No Hx Substance Use: No Preferred Language: Setswana Communication Ability: Effective Communication Ability Comment: pt does have earring aids Visual Impairment: No Limitations Hearing Ability: Use of Hearing Aid Wallpaper Hanger Required: No Beliefs That Will Affect Care: None marital status: Single Current Living Situation: Personal Care Facility Current Living Situation Comment: pt lives alone, has daughter and son check on her current occupational status: retired Other Information That Helps Us Care for You: No Feels Safe at Home: Yes Safety Concerns: Feels Safe At This Time Childhood Exposure to Second-Hand Smoke: Yes Diet: regular Dental Care, Regularly: Yes Physical Activity Frequency: Does not Exercise Seatbelt Use: always Sunscreen Use: Yes Assistive Devices: Walker Review of Systems Review of Systems: Limited - see HPI Physical Exam Physical Exam: General: awake, alert, irritable but NAD HEENT: no scleral icterus, moist oral mucosa Heart: RRR Lungs: CTA bilaterally Abdomen: soft, NT, +BS Extremities: chronic non-pitting edema bilateral LE MSK: pain in lower back with plantarflexion but strength intact and equal bilaterally Neurologic: no confusion or dysarthria though pt had difficulty with recall of timing of recent events, current medications Results & Data Results & Data Vital Signs (Past 12 Hours) Vital Signs Temp Pulse Pulse Resp BP BP Pulse Ox 09/13/23 12:43 89 09/13/23 12:22 98 09/13/23 12:21 80 20 173/88 H 98 09/13/23 10:36 36.6 C 82 20 123/80 98 O2 Del Method 09/13/23 12:43 09/13/23 12:22 Room Air 09/13/23 12:21 Room Air 09/13/23 10:36 Room Air Laboratory Results Laboratory Results - last 24 hr 09/13/23 10:45 WBC 7.14 RBC 3.64 L Hgb 11.6 L Hct 36.2 L MCV 99.5 MCH 31.9 MCHC 32.0 RDW Std Deviation 53.4 H RDW Coeff of Shai 15.1 H Plt Count 221 MPV 9.1 L Immature Gran % (Auto) 0.6 Neut % (Auto) 74.2 Lymph % (Auto) 15.3 [place] % (Auto) 7.3 Eos % (Auto) 2.2 Baso % (Auto) 0.4 Neut # (Auto) 5.30 Lymph # (Auto) 1.09 L [place] # (Auto) 0.52 Eos # (Auto) 0.16 Baso # (Auto) 0.03 Immature Gran # (Auto) 0.04 Sodium 133 L Potassium 4.0 Chloride 95 L Carbon Dioxide 32 Anion Gap 6 BUN 34 H Creatinine 1.86 H Est Cr Clr Drug Dosing Not Reportable Est GFR ( Amer) 27.9 Est GFR (Non-Af Amer) 24.1 BUN/Creatinine Ratio 18.3 Glucose 242 H Calcium 9.3 Total Bilirubin 0.6 AST 47 H ALT 44 Alkaline Phosphatase 99 Total Protein 6.5 Albumin 3.9 Globulin 2.6 Albumin/Globulin Ratio 1.5 Diagnostic Findings Lumbar Spine CT 09/13/23 11:39 CT lumbar spine wo con CLINICAL HISTORY: back pain, sciatic TECHNIQUE: Multidetector row helical CT of the lumbar spine was performed without administration of intravenous contrast. Coronal and sagittal reformations were obtained. Automated dose lowering techniques and/or adjustment according to patient size were utilized for this exam. CT DOSE: 1059.06 mGy.cm Comparison: Comparison is made to CT lumbar spine 05/10/2022 FINDINGS: For counting purposes, the last complete intervertebral disc space is considered L5-S1. There is an acute fracture of the superior endplate of L1 without extension to the posterior elements. Degenerative changes are noted in the visualized spine. Vertebral body alignment is within normal limits. Atherosclerotic changes are seen in the aorta. IMPRESSION: Acute fracture of the superior endplate of L1. No significant retropulsion and no involvement of the posterior elements. ACT 112: Negative or not required by law. Electronically signed by: Yon Quispe M.D. 09/13/2023 12:27 PM Medications Administered Discontinued Medications Fentanyl Citrate (Fentanyl Citrate Pf 100 Mcg/2 Ml Vial) 50 mcg IV NOW STA Stop: 09/13/23 11:40 Last Admin: 09/13/23 11:45 Dose: 50 mcg Documented By: MNE Supervising Physician Co-Signing Physician Notes Pt was seen and examined by myself, Neli Du MD on the day of service. Care was coordinated with Jacqueline Ray PA-C. 88yoF presenting with intractable back pain, worsening over the last week. Was being worked up outpatient. Noted that she was comfortable at time of exam, very thirsty. Lumbar spine CT noting acute fracture at L1. Lumbar fracture-Pain control, ortho spine consult- pt would prefer to see Dr Rosales/[facility] ortho spine. Hyponatremia- Noted from june, currently lowest at 133. Continue to follow with AM labs and workup further as needed with urine osm, urine sodium, etc if persistently low. CKD- stable, cr at baseline at 1.8 DMII-Basal/bolus Insulin Otherwise as above. I spent a total [id number] coordinating, documenting, and providing care for this patient excluding time spent in the performance of separately billed services (1) Closed L1 vertebral fracture Encounter type: initial encounter Fracture morphology: unspecified fracture morphology Qualified Code(s): S32.019A - Unspecified fracture of first lumbar vertebra, initial encounter for closed fracture (4) Rheumatoid arthritis Rheumatoid arthritis location: unspecified site Rheumatoid factor presence: unspecified presence Qualified Code(s): M06.9 - Rheumatoid arthritis, unspecified (5) DMII (diabetes mellitus, type 2) Diabetes mellitus complication detail: with polyneuropathy Diabetes mellitus complication status: with neurologic complications 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
[2023-09-13] MEDS: LORazepam 0.5 MG in SYRINGE 0.25 ML IV STA (15:46)
[2023-09-13] MEDS: ACETAMINOPHEN 500 MG TAB PO SCH (17:58)
[2023-09-13] MEDS ORDERED: FLUTICASONE PROPIONATE NA SPR 16 GM BTL PRN (18:34)
[2023-09-13] MEDS ORDERED: CARBOHYDRATES FOR HYPOGLYCEMIA PO PRN (18:34)
[2023-09-13] MEDS ORDERED: GLUCOSE 40% GEL 15 GM TUBE PO PRN (18:34)
[2023-09-13] MEDS ORDERED: ALBUTEROL HFA 8 GM INHALER INH PRN (18:34)
[2023-09-13] MEDS ORDERED: GLUCAGON FOR INJ 1 MG VIAL SQ PRN (18:34)
[2023-09-13] MEDS ORDERED: GLUCOSE 10 TAB/TUBE PO PRN (18:34)
[2023-09-13] MEDS ORDERED: DEXTROSE 50% 50 ML SYRINGE IV PRN (18:34)
[2023-09-13] MEDS: INSULIN ASPART PER UNIT CHARGE SC SCH (18:43)
[2023-09-13] MEDS: APIXABAN 2.5 MG TAB PO SCH (21:27)
[2023-09-13] MEDS: LANTUS PER UNIT CHARGE SQ SCH (21:27)
[2023-09-13] MEDS: GABAPENTIN 100 MG CAP PO SCH (21:28)
[2023-09-13] MEDS: PANTOprazole 40 MG TAB PO SCH (21:28)
[2023-09-13] MEDS: VENLAFAXINE HCL 37.5 MG TAB PO SCH (21:29)
[2023-09-13] MEDS: ARTIFICIAL TEARS OPB SCH (21:31)
[2023-09-13 21:37] LABS: Appearance Urine Clear (Clear); Bilirubin Urine Negative (Negative); Blood Urine Negative (Negative); Color Urine Yellow; Glucose Urine UA Negative (Negative); Ketones Urine Negative (Negative); Leukocyte Esterase Urine Negative (Negative); Nitrite Urine Negative (Negative); Protein Urine Negative (Negative); Specific Gravity Urine 1.008 (1.000-1.030); Urobilinogen Urine Negative (Negative)
[2023-09-14] MEDS: oxyCODONE HCL IR 5 MG TAB (IMMEDIATE RELEASE) PO PRN ×2 (01:14→12:35)
[2023-09-14] MEDS: oxyCODONE HCL IR 5 MG TAB (IMMEDIATE RELEASE) PO STA (05:25)
[2023-09-14] MEDS: VITAMIN B COMPLEX TAB PO SCH (08:03)
[2023-09-14] MEDS: FUROSEMIDE 40 MG TAB PO SCH (08:03)
[2023-09-14] MEDS: CHOLECALCIFEROL 25 MCG (1000 UNITS) TAB PO SCH (08:03)
[2023-09-14] MEDS: MONTELUKAST SODIUM 10 MG TABLET PO SCH (08:03)
[2023-09-14] MEDS: GABAPENTIN 300 MG CAP PO SCH (08:04)
[2023-09-14] MEDS: METOPROLOL SUCC 50MG EXT REL TAB PO SCH (08:04)
[2023-09-14] MEDS: LIDOCAINE 5% 1 PATCH TD SCH (08:05)
[2023-09-14] MEDS: FOLIC ACID 1 MG TAB PO SCH (08:05)
[2023-09-14] MEDS: ATORVASTATIN 10 MG TAB PO SCH (08:05)
[2023-09-14] MEDS: POLYETHYLENE (MIRALAX) 17 GM PACK PO SCH (08:05)
[2023-09-14] MEDS: DOCUSATE SODIUM 100 MG CAP PO SCH (08:05)
[2023-09-14] MEDS: traMADol HCL 50 MG TABLET PO PRN (08:13)
[2023-09-14] MEDS ORDERED: SIMETHICONE 80 MG CHEW PO PRN (08:33)
[2023-09-14 08:34] LABS: Estimated Average Glucose 140 mg/dl; Hemoglobin A1C 6.5 % (4.5-5.6)
[2023-09-14] MEDS: SIMETHICONE 80 MG CHEW PO ONE (09:04)
[2023-09-14] MEDS: LORazepam 0.5 MG TAB PO PRN (11:37)
--- NOTE | 2023-09-14 12:17 | Hospitalist Progress Note ---
Date of Service September 14, 2023 Assessment & Plan (1) Osteoporotic compression fracture of spine: (2) Closed L1 vertebral fracture: Plan: This is an 88 y/o female with chronic diastolic heart failure, nonischemic cardiomyopathy s/p biventricular ICD, PAF on Eliquis, prior 3rd degree heart block s/p PPM, mild MR/TR, pulmonary HTN, ANN intolerant to CPAP, insulin- requiring DM, rheumatoid arthritis, CKD, and chronic hypoxic respiratory failure requiring 2L of O2 at baseline who presented to the ED with acute on chronic back pain. Pt reports recent mechanical fall, after which the worsening pain started. Work-up in the ED showed acute L1 superior end-plate fracture. Pt was referred for admission for pain management, possible evaluation by spine surgery. - Admit to med surg - PT/OT evaluations, fall precautions -Will adjust pain medication, increased oxycodone to 5 mg every 4 hours as needed for pain, continue scheduled Tylenol, lidocaine patch and add ice -Await recommendations of orthopedic spine -continue colace, miralax for bowel regimen -age related compression fracture of spine (3) Chronic hypoxic respiratory failure, on home oxygen therapy: Plan: Stable O2 requirements (4) Paroxysmal atrial fibrillation: Plan: Chronic, not currently in atrial fibrillation Continue anticoagulation with Eliquis, 2.5mg bid 2/2 age/kidney function (5) Non-ischemic cardiomyopathy: (6) Chronic systolic congestive heart failure: Plan: Follows [facility] cardiology History of nonischemic cardiomyopathy with EF of 20 to 25% which subsequently improved to most recent value of 60 to 65% status post ICD/biventricular pacemaker in 2016 Daily weights, strict I's and O's Continue Eliquis, statin, metoprolol, Aldactone and Lasix Monitor renal function (7) Rheumatoid arthritis: Plan: Chronic, stable Continue outpatient meds, methotrexate (8) DMII (diabetes mellitus, type 2): Plan: Chronic, stable Continue basal insulin, novolog sliding scale obtain a1c in a.m. (9) Diabetic neuropathy: Plan: Chronic, stable Continue gabapentin (10) Chronic kidney disease, stage IV (severe): Plan: Chronic, stable baseline cr 1.8 monitor (11) GERD (gastroesophageal reflux disease): Plan: Chronic, stable Continue outpatient PPI therapy Plan Dispo: admit to medical, PT/OT consults to determine dispo, pain management, once this obtained pt likely can be discharged, consult orthotics DVT ppx: Sagar DNR/DNI PCP: Campos A total of 50 minutes was spent coordinating, documenting, and providing care for this patient excluding time spent in the performance of separately billed services. This included personally viewing all current laboratories and imaging studies, medication reconciliation, outpatient chart review, and discussion with specialists. Admission and Anticipated Discharge Date Admission Date: September 13, 2023 Supervising Physician Co-Signing Physician Notes Likely age-related osteoporotic fracture of the L1 vertebra Subjective Patient was seen and examined in 378. Follow-up compression fracture. She is complaining of significant amount of low back pain. She is also complaining of belching. She did not eat much for breakfast. She denies fever, chills, sweats, lightheadedness, dizziness, chest pain, shortness breath, nausea, vomiting or abdominal pain. Review of Systems Review of Systems: All systems reviewed & are unremarkable except as noted in HPI & below Physical Exam Physical Exam: Gen: WD/WN, elderly, female, able to logroll in bed but slowly NAD, A&O x3 HEENT: Normocephalic, atraumatic, conjunctivae moist, sclerae anicteric, mucous membranes moist. Lung: Clear to Auscultation bilaterally, no wheezes/rales/rhonchi Heart: Regular rate, regular rhythm, no murmurs, rubs, or gallops Abdomen: Soft, NT, ND +BS x 4 Extremities: No edema MSK: Pinpoint tenderness to vertebral processes and lumbar region, no paraspinal muscular tenderness Skin: Warm, no rash, negative turgor. Results & Data Results & Data Vital Signs (Past 12 Hours) Vital Signs Temp Pulse Resp BP Pulse Ox O2 Del Method O2 Flow Rate 09/14/23 08:05 36.3 C L 79 20 154/85 H 96 Nasal Cannula 2 Laboratory Results Urine 09/13/23 Range/Units 21:20 Urine Color Yellow Urine Appearance Clear (Clear) Urine pH 7.0 (4.5-7.5) Ur Specific [place] 1.008 (1.000-1.030) Urine Protein Negative (Negative) Urine Glucose (UA) Negative (Negative) Medications Administered Current Inpatient Medications Acetaminophen (Acetaminophen 500 Mg Tab) 1,000 mg PO Q8H NIHARIKA Stop: 10/13/23 16:59 Last Admin: 04/02/24 08:14 Dose: 1,000 mg Albuterol (Albuterol Hfa 8 Gm Inhaler) 2 puffs INH Q8 PRN PRN Reason: Shortness Of Breath Or Wheezing Stop: 10/13/23 18:33 Apixaban (Apixaban 2.5 Mg Tab) 2.5 mg PO BID NIHARIKA Stop: 10/13/23 20:59 Last Admin: 09/14/23 08:05 Dose: 2.5 mg Artificial Tears (Artificial Tears) 1 drops OPB TID NIHARIKA Stop: 10/13/23 20:59 Last Admin: 09/14/23 09:04 Dose: 1 drops Atorvastatin Calcium (Atorvastatin 10 Mg Tab) 10 mg PO DAILY NIHARIKA Stop: 10/14/23 08:59 Last Admin: 09/14/23 08:05 Dose: 10 mg Dextrose (Dextrose 50% 50 Ml Syringe) 25 - 50 ml IV UD PRN; Protocol PRN Reason: Hypoglycemia Protocol Stop: 10/13/23 18:33 Docusate Sodium (Docusate Sodium 100 Mg Cap) 100 mg PO DAILY NIHARIKA Stop: 10/14/23 08:59 Last Admin: 09/14/23 08:05 Dose: 100 mg Fluticasone Propionate (Fluticasone Propionate Na Spr 16 Gm Btl) 2 sprays NA DAILY PRN PRN Reason: Other Stop: 10/13/23 18:33 Folic Acid (Folic Acid 1 Mg Tab) 2 mg PO DAILY NIHARIKA Stop: 10/14/23 08:59 Last Admin: 09/14/23 08:05 Dose: 2 mg Furosemide (Furosemide 40 Mg Tab) 40 mg PO DAILY NIHARIKA Stop: 10/14/23 08:59 Last Admin: 09/14/23 08:03 Dose: 40 mg Gabapentin (Gabapentin 100 Mg Cap) 100 mg PO BID NIHARIKA Stop: 10/13/23 20:59 Last Admin: 09/14/23 08:05 Dose: 100 mg Gabapentin (Gabapentin 300 Mg Cap) 300 mg PO DAILY [facility]ARIKA Stop: 10/14/23 08:59 Last Admin: 09/14/23 08:04 Dose: 300 mg Glucagon (Glucagon For Inj 1 Mg Vial) 1 mg SQ UD PRN; Protocol PRN Reason: Hypoglycemia Protocol Stop: 10/13/23 18:33 Glucose (Glucose 10 Tab/Tube) 4 - 8 tab PO UD PRN; Protocol PRN Reason: Hypoglycemia Treatment Stop: 10/13/23 18:33 Glucose (Glucose 40% Gel 15 Gm Tube) 15 - 30 gm PO UD PRN; Protocol PRN Reason: Hypoglycemia Protocol Stop: 10/13/23 18:33 Insulin Aspart (Insulin Aspart Per Unit Charge) 0 units SC ACHS [facility] Stop: 10/13/23 18:33 Last Admin: 09/14/23 08:14 Dose: 4 units Insulin Glargine (Lantus Per Unit Charge) 8 units SQ BID NIHARIKA Stop: 10/13/23 20:59 Last Admin: 09/14/23 08:14 Dose: 8 units Lidocaine (Lidocaine 5% 1 Patch) 1 patch TD DAILY [facility] Stop: 10/14/23 08:59 Last Admin: 09/14/23 08:05 Dose: 1 patch Lorazepam (Lorazepam 0.5 Mg Tab) 0.5 mg PO BID PRN PRN Reason: Anxiety Stop: 10/13/23 18:33 Last Admin: 09/14/23 11:37 Dose: 0.5 mg Methotrexate (Methotrexate Sodium 2.5 Mg Tab) 5 mg PO Sa@0900 [facility] Stop: 10/18/23 08:59 Metoprolol Succinate (Metoprolol Succ 50mg Ext Rel Tab) 200 mg PO DAILY [facility] Stop: 10/14/23 08:59 Last Admin: 09/14/23 08:04 Dose: 200 mg Miscellaneous (Carbohydrates For Hypoglycemia ) 15 - 30 gm PO UD PRN PRN Reason: Hypoglycemia Protocol Stop: 10/13/23 18:33 Miscellaneous (Remove Lidoderm Patch) 1 each N/A DAILY@2100 [facility] Stop: 10/13/23 20:59 Last Admin: 09/13/23 21:29 Dose: 1 each Montelukast Sodium (Montelukast Sodium 10 Mg Tablet) 10 mg PO DAILY [facility] Stop: 10/14/23 08:59 Last Admin: 09/14/23 08:03 Dose: 10 mg Oxycodone HCl (Oxycodone Hcl Ir 5 Mg Tab (Immediate Release)) 5 mg PO Q4H PRN PRN Reason: Severe Pain (Scale 7, 8, 9,10) Stop: 09/27/23 16:56 Pantoprazole Sodium (Pantoprazole 40 Mg Tab) 40 mg PO BID [facility] Stop: 10/13/23 20:59 Last Admin: 09/14/23 08:05 Dose: 40 mg Polyethylene Glycol (Polyethylene (Miralax) 17 Gm Pack) 17 gm PO DAILY [facility] Stop: 10/14/23 08:59 Last Admin: 09/14/23 08:05 Dose: 17 gm Simethicone (Simethicone 80 Mg Chew) 80 mg PO Q6H PRN PRN Reason: Flatulence Stop: 10/14/23 08:32 Spironolactone (Spironolactone 25 Mg Tab) 25 mg PO MoWeFr@0900 [facility] Stop: 10/15/23 08:59 Venlafaxine HCl (Venlafaxine Hcl 37.5 Mg Tab) 37.5 mg PO HS [facility] Stop: 10/13/23 20:59 Last Admin: 09/13/23 21:29 Dose: 37.5 mg Vitamin B Complex (Vitamin B Complex Tab) 1 tab PO DAILY [facility] Stop: 10/14/23 08:59 Last Admin: 09/14/23 08:03 Dose: 1 tab Vitamin D (Cholecalciferol 25 Mcg (1000 Units) Tab) 50 mcg PO DAILY [facility] Stop: 10/14/23 08:59 Last Admin: 09/14/23 08:03 Dose: 50 mcg (2) Closed L1 vertebral fracture Encounter type: initial encounter Fracture morphology: unspecified fracture morphology Qualified Code(s): S32.019A - Unspecified fracture of first lumbar vertebra, initial encounter for closed fracture (7) Rheumatoid arthritis Rheumatoid arthritis location: unspecified site Rheumatoid factor presence: unspecified presence Qualified Code(s): M06.9 - Rheumatoid arthritis, unspecified (8) DMII (diabetes mellitus, type 2) Diabetes mellitus complication detail: with polyneuropathy Diabetes mellitus complication status: with neurologic complications Diabetes mellitus alf insulin use: with alf use Qualified Code(s): E11.42 - Type 2 diabetes mellitus with diabetic polyneuropathy; Z79.4 - terminal 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
--- NOTE | 2023-09-14 13:25 | Orthopedic Consultation ---
Date of Service September 14, 2023 Assessment & Plan (1) Closed compression fracture of body of L1 vertebra: I had a long discussion today with the patient about her lumbar spine pathology with ample amount of time for the patient to ask any questions or state any concerns. All questions and concerns were answered to the patient's satisfaction. At this point, we can proceed with nonoperative management of her L1 superior endplate fracture. We would recommend her working with physical therapy working on ambulation and range of motion. Modifications of aggravating activities of the lumbar spine. Continue with current analgesics regimen due to the patient's symptoms that were discussed yesterday are currently resolved. We could also proceed with a back brace if patient's symptoms are to be exacerbated with physical therapy. This may have to be ordered through orthotics due to patient's body habitus. We will have to watch the fracture closely so she should follow-up with [facility] orthopedics or an orthopedic practice of her choosing upon discharge. She will follow-up 1 to 2 weeks post discharge. Please see Dr. Love amendment for any changes per his request. Medical management and DVT prophylaxis per primary. Please [place] text or reach out to [facility] orthopedics if this patient's situation is to change. Patient seen and examined, back pain is situated in the lumbar spine but neurologically intact. I discussed with patient the nature of the injury and treatment plan, she will be following up in the office with brace treatment and follow-up radiographs. History of Present Illness Reason for Consultation: . Compression fracture of the body of L1 vertebra Requesting Physician: . Attending Physician: Artie Narvaez MD . Cary is a 88-year-old female who presents yesterday to the emergency department due to worsening back pain over the past week and a half. She does have a history of lumbar stenosis and is previously diagnosed at one of her multiple hospital visits. She was seen by Dr. Ohara on consultation back about a year ago in which he did discuss nonoperative treatment for this. She did follow-up with pain management but does states she has not really been following with pain management or with a spine surgeon since. An x-ray that was completed yesterday in the emergency department did show an L1 superior endplate fracture which is new from previous films. She does note that she did fall over the weekend and landed on her buttocks. She noted yesterday that the pain radiated down both her legs. She does have associated numbness and tingling which is chronic down bilateral legs. At this point, she was admitted to the hospital an d orthopedics was consulted. She is currently scheduled acetaminophen and as needed oxycodone for severe pain as well as a lidocaine patch. Today, she notes that her pain is very well-controlled. She notes that she does have discomfort with direct palpation over the lumbar spine. She denies any symptoms down her legs at this present moment. She denies any other concerns at the time of my examination. Allergies Allergy/AdvReac Type Severity Reaction Status Date / Time amiodarone AdvReac Intermediate gi distress Verified 09/09/23 14:18 aspirin AdvReac Intermediate history of Verified 09/09/23 14:18 ulcers nortriptyline AdvReac Unknown DOESN'T Verified 09/09/23 14:18 REMEMBER Home Medications Medication Instructions Recorded Confirmed Type Systane Lubricant Eye Drops 1 drp OPB TID 05/30/23 09/13/23 History acetaminophen 325 mg tablet 650 mg PO Q6 PRN Fever Or Pain 05/30/23 09/13/23 History albuterol sulfate 90 mcg/actuation 2 inh inhalation Q8 PRN Shortness 05/30/23 09/13/23 History aerosol inhaler Of Breath Or Wheezing apixaban 2.5 mg tablet (Eliquis) 2.5 mg PO BID 05/30/23 09/13/23 History atorvastatin 10 mg tablet 10 mg PO DAILY 05/30/23 09/13/23 History benzonatate 200 mg capsule 200 mg PO TID PRN Cough 05/30/23 09/13/23 History buspirone 5 mg tablet 5 mg PO BID PRN Anxiety 05/30/23 09/13/23 History carbamide peroxide 6.5 % ear drops 5 - 10 drp otic (ear) BID PRN .Wax 05/30/23 09/13/23 History removal cholecalciferol (vitamin D3) 50 2,000 unit PO DAILY 05/30/23 09/13/23 History mcg (2,000 unit) capsule (Vitamin D3) dextromethorphan-guaifenesin 5 10 ml PO Q8H PRN Cough 05/30/23 09/13/23 History mg-100 mg/5 mL oral liquid (Robitussin Honey Max DM) fluticasone propionate 50 2 spray intranasal DAILY PRN Other 05/30/23 09/13/23 History mcg/actuation nasal spray,suspension (Flonase Allergy Relief) folic acid 1 mg tablet 2 mg PO DAILY 05/30/23 09/13/23 History gabapentin 100 mg capsule 100 mg PO BID 05/30/23 09/13/23 History gabapentin 300 mg capsule 300 mg PO DAILY 05/30/23 09/13/23 History insulin glargine U-300 conc 300 25 unit subcut DAILY 05/30/23 09/13/23 History unit/mL (1.5 mL) subcutaneous pen (Toujeo SoloStar U-300 Insulin) insulin lispro 100 unit/mL 1 sliding scale dose subcut TIDM 05/30/23 09/13/23 History subcutaneous solution (Humalog U-100 Insulin) loperamide 2 mg tablet 2 mg PO DIRECTED PRN Diarrhea 05/30/23 09/13/23 History lorazepam 0.5 mg tablet 0.5 mg PO BID PRN Anxiety 05/30/23 09/13/23 History methotrexate sodium 2.5 mg tablet 5 mg PO .Wednesday05/30/23 09/13/23 History metoprolol succinate 200 mg 200 mg PO DAILY 05/30/23 09/13/23 History tablet,extended release 24 hr montelukast 10 mg tablet 10 mg PO DAILY 05/30/23 09/13/23 History pantoprazole 40 mg tablet,delayed 40 mg PO BID 05/30/23 09/13/23 History release spironolactone 25 mg tablet 25 mg PO 3XWK 05/30/23 09/13/23 History venlafaxine 37.5 mg tablet 37.5 mg PO HS 05/30/23 09/13/23 History vitamin B complex 1 tab PO DAILY 05/30/23 09/13/23 History calcium carbonate 300 mg (750 mg) 300 mg PO DAILY PRN Indigestion 08/18/23 09/13/23 History chewable tablet (Calcium Antacid) docusate sodium 100 mg capsule 100 mg PO DAILY 08/18/23 09/13/23 History (Colace) hydrocortisone 2.5 % topical cream 1 applic TN BID hemorrhoids 2 08/25/23 09/13/23 Rx with perineal applicator weeks #30 grams polyethylene glycol 3350 17 17 g PO DAILY #510 grams 08/25/23 09/13/23 Rx gram/dose oral powder (Miralax) lidocaine 4 % topical patch 1 patch topical DAILY PRN Other 08/26/23 09/13/23 History (AsperFlex (lidocaine)) Ky Jelly 1 applic miscellaneous DAILY PRN 09/13/23 09/13/23 History dry nostrils due to oxygen use furosemide 40 mg tablet (Lasix) 40 mg PO DAILY 09/13/23 09/13/23 History acetaminophen 500 mg tablet 1,000 mg (2 x 500 mg) PO Q8H 7 09/15/23 Rx (Tylenol Extra Strength) days #42 tabs lidocaine 5 % topical patch See Rx Instructions topical 09/15/23 Rx .COMPLEX #15 ea oxycodone 5 mg capsule 5 mg PO Q4H PRN pain #12 caps 09/15/23 Rx Past Med/Surg History Medical History Abnormal CT scan, chest History of COVID-19 Degenerative lumbar spinal stenosis COVID-19 (~03/2021) Chronic diarrhea Diabetic neuropathy Degenerative disc disease Diabetes mellitus, type 2 Hx of squamous cell carcinoma Atrial fibrillation Anxiety and depression CARRILLO (dyspnea on exertion) Sensorineural hearing loss (SNHL) of both ears Chronic systolic congestive heart failure History of basal cell carcinoma Biventricular ICD (implantable cardioverter-defibrillator) in place (2015) Dyslipidemia GERD without esophagitis Hypertension PAC (premature atrial contraction) Rheumatoid arthritis Stage III chronic kidney disease Third degree AV block Non-ischemic cardiomyopathy Surgical History History of anesthesia reaction History of esophagogastroduodenoscopy (EGD) History of colonoscopy History of tooth extraction History of cataract surgery S/P tubal ligation S/P total knee arthroplasty S/P cholecystectomy Family History Father Heart disease Mother Diabetes Heart disease Myocardial infarction Family history of diabetes mellitus Grandfather (Maternal) Prostate cancer Family history of diabetes mellitus Other Family history non-contributory No family history of adverse response to anesthesia Denies family history of Ovarian cancer Breast cancer Colorectal cancer Social History Smoking Status: Unknown if ever smoked Second Hand Exposure: No; Do You Dip or Chew Tobacco: Yes; Hx Alcohol Use: No Hx Substance Use: No Preferred Language: Chinese Communication Ability: Effective Communication Ability Comment: pt does have earring aids Visual Impairment: No Limitations Hearing Ability: Use of Hearing Aid School Transportation Supervisor Required: No Beliefs That Will Affect Care: None marital status: Single Current Living Situation: Personal Care Facility Current Living Situation Comment: pt lives alone, has daughter and son check on her current occupational status: retired Other Information That Helps Us Care for You: No Feels Safe at Home: Yes Safety Concerns: Feels Safe At This Time Childhood Exposure to Second-Hand Smoke: Yes Diet: regular Dental Care, Regularly: Yes Physical Activity Frequency: Does not Exercise Seatbelt Use: always Sunscreen Use: Yes Assistive Devices: Walker Review of Systems All systems reviewed & are unremarkable except as noted in HPI & below. Physical Exam . General: awake, alert, irritable but NAD HEENT: no scleral icterus, moist oral mucosa Heart: RRR Lungs: CTA bilaterally Abdomen: soft, NT, +BS Extremities: chronic non-pitting edema bilateral LE Neurologic: no confusion or dysarthria though pt had difficulty with recall of timing of recent events, current medications Musculoskeletal On examination of the lumbar spine, she does have tenderness approximately around L1 of the lumbar spine. She is grossly intact motor and sensory function diffusely throughout the lower extremities. No pain is reducible with active or passive range of motion during my examination. She is able to produce a straight leg raise bilaterally. Plantarflexion and dorsiflexion equal in strength bilaterally. She has equal strength over FLH bilaterally. +2 DP and PT pulses. Less than 2-second capillary refill. Intact sensation and at baseline per patient. Neurovascular intact. Results & Data Results & Data Laboratory Results . Diagnostic Findings . Lumbar Spine CT 09/13/23 11:39 CT lumbar spine wo con CLINICAL HISTORY: back pain, sciatic TECHNIQUE: Multidetector row helical CT of the lumbar spine was performed without administration of intravenous contrast. Coronal and sagittal reformations were obtained. Automated dose lowering techniques and/or adjustment according to patient size were utilized for this exam. CT DOSE: 1059.06 mGy.cm Comparison: Comparison is made to CT lumbar spine 05/10/2022 FINDINGS: For counting purposes, the last complete intervertebral disc space is considered L5-S1. There is an acute fracture of the superior endplate of L1 without extension to the posterior elements. Degenerative changes are noted in the visualized spine. Vertebral body alignment is within normal limits. Atherosclerotic changes are seen in the aorta. IMPRESSION: Acute fracture of the superior endplate of L1. No significant retropulsion and no involvement of the posterior elements. ACT 112: Negative or not required by law. Electronically signed by: Yon Quispe M.D. 09/13/2023 12:27 PM PG Care Time/CCT Total # of Minutes Spent Total Time Spent with Patient: Total time spent is greater than 50% in coordination of care (as documented) at patient's floor/unit and/or counseling patient: Coding Level of Care Code 24660 IN/OBS CONSULT LVL 3,45M Diagnoses Closed compression fracture of body of L1 vertebra S32.010A Additional Codes Fx Spine - Vertebral body: Vertebral Body ([id number])
[2023-09-15 07:08] LABS: Albumin Globulin Ratio 1.5 (0.9-2); Albumin Level 3.7 gm/dl (3.4-5.0); BUN Creatinine Ratio 16.3 (10-20); Calcium 9.7 mg/dl (8.6-10.3); Creatinine Clr Calc Pharmacy 28.1 ml/min; Est GFR (African American) 29.4 ml/min; Est GFR (Non-African American) 25.4 ml/min; Globulin 2.4 gm/dl (2.5-4.0); Potassium 3.9 mmol/L (3.5-5.1); Total Protein 6.1 gm/dl (6.0-8.3)
[2023-09-15 07:16] LABS: Basophils # (auto) 0.04 K/uL (0.00-0.20); Basophils % (auto) 0.6 %; Eosinophils # (auto) 0.44 K/uL (0.00-0.50); Eosinophils % (auto) 6.6 %; Hematocrit (blood only) 34.6 % (37.0-47.0); Hemoglobin 11.7 g/dl (12.0-16.0); Immature Granulocytes # (auto) 0.02 K/uL (0.01-0.20); Immature Granulocytes % (auto) 0.3 %; Lymphocytes # (auto) 1.45 K/uL (1.20-3.40); Lymphocytes % (auto) 21.6 %; Mean Corpuscular Hemoglobin 32.3 pg (25.0-34.0); Mean Corpuscular Hgb Conc 33.8 g/dL (32.0-36.0); Mean Corpuscular Volume 95.6 fL (80.0-100.0); Mean Platelet Volume 9.7 fL (9.4-12.4); Monocytes # (auto) 0.28 K/uL (0.11-0.59); Monocytes % (auto) 4.2 %; Neutrophils # (auto) 4.48 K/uL (1.40-6.50); Neutrophils % (auto) 66.7 %; Platelet Count 232 K/uL (130-400); Platelet Estimate Normal (Normal); RDW Coefficient of Variation 14.9 % (11.5-14.5); Red Blood Count 3.62 M/uL (4.20-5.40); White Blood Count 6.71 K/ul (4.8-10.8)
[2023-09-15 07:41] LABS: Estimated Average Glucose 137 mg/dl; Hemoglobin A1C 6.4 % (4.5-5.6)
[2023-09-15] MEDS: SPIRONOLACTONE 25 MG TAB PO SCH (08:10)
--- NOTE | 2023-09-15 12:00 | Hospitalist Progress Note ---
Date of Service September 15, 2023 Assessment & Plan (1) Osteoporotic compression fracture of spine: (2) Closed L1 vertebral fracture: Plan: This is an 88 y/o female with chronic diastolic heart failure, nonischemic cardiomyopathy s/p biventricular ICD, PAF on Eliquis, prior 3rd degree heart block s/p PPM, mild MR/TR, pulmonary HTN, ANN intolerant to CPAP, insulin- requiring DM, rheumatoid arthritis, CKD, and chronic hypoxic respiratory failure requiring 2L of O2 at baseline who presented to the ED with acute on chronic back pain. Pt reports recent mechanical fall, after which the worsening pain started. Work-up in the ED showed acute L1 superior end-plate fracture. Pt was referred for admission for pain management, possible evaluation by spine surgery. - Admitted to med surg - PT/OT evaluations feel she is able to go back to [facility]; [facility] - fall precautions -Continue Oxy IR 5 mg every 4 hours as needed for pain, continue scheduled Tylenol, lidocaine patch and add ice -LSO brace ordered -appreciate orthospine consult: plan for conservative management -continue colace, miralax for bowel regimen -age related compression fracture of spine (3) Chronic hypoxic respiratory failure, on home oxygen therapy: Plan: Stable O2 requirements (4) Paroxysmal atrial fibrillation: Plan: Chronic, not currently in atrial fibrillation Continue anticoagulation with Eliquis, 2.5mg bid 2/2 age/kidney function (5) Non-ischemic cardiomyopathy: (6) Chronic systolic congestive heart failure: Plan: Follows [facility] cardiology History of nonischemic cardiomyopathy with EF of 20 to 25% which subsequently improved to most recent value of 60 to 65% status post ICD/biventricular pacemaker in 2016 Daily weights, strict I's and O's Continue Eliquis, statin, metoprolol, Aldactone and Lasix Monitor renal function (7) Rheumatoid arthritis: Plan: Chronic, stable Continue outpatient meds, methotrexate (8) DMII (diabetes mellitus, type 2): Plan: Chronic, stable Continue basal insulin, novolog sliding scale obtain a1c in a.m. (9) Diabetic neuropathy: Plan: Chronic, stable Continue gabapentin (10) Chronic kidney disease, stage IV (severe): Plan: Chronic, stable baseline cr 1.8 monitor (11) GERD (gastroesophageal reflux disease): Plan: Chronic, stable Continue outpatient PPI therapy Plan Dispo: D/C back to [facility] today DVT ppx: Sagar DNR/DNI PCP: Campos A total of 45 minutes was spent coordinating, documenting, and providing care for this patient excluding time spent in the performance of separately billed services. This included personally viewing all current laboratories and imaging studies, medication reconciliation, outpatient chart review, and discussion with specialists. Admission and Anticipated Discharge Date Admission Date: September 13, 2023 Subjective Patient was seen and examined in 378. Follow-up compression fracture. She feels pain is controlled. She worked with therapy yesterday. She got a back brace. Denies f/c/s, chest pain, sob,n/v/d. + gas Review of Systems Review of Systems: All systems reviewed & are unremarkable except as noted in HPI & below Physical Exam Physical Exam: Gen: WD/WN, elderly, female, lying in bed, NAD, A&O x3 HEENT: Normocephalic, atraumatic, conjunctivae moist, sclerae anicteric, mucous membranes moist. Lung: Clear to Auscultation bilaterally, no wheezes/rales/rhonchi Heart: Regular rate, regular rhythm, no murmurs, rubs, or gallops Abdomen: Soft, NT, ND +BS x 4 Extremities: No edema Skin: Warm, no rash, negative turgor. Results & Data Results & Data Vital Signs (Past 12 Hours) Vital Signs Temp Pulse Resp BP Pulse Ox O2 Del Method O2 Flow Rate 09/15/23 08:59 Nasal Cannula 2 09/15/23 07:53 36.5 C 80 18 159/85 H 93 Nasal Cannula 2 Medications Administered Current Inpatient Medications Acetaminophen (Acetaminophen 500 Mg Tab) 1,000 mg PO Q8H [facility] Stop: 10/13/23 16:59 Last Admin: 09/15/23 08:16 Dose: 1,000 mg Albuterol (Albuterol Hfa 8 Gm Inhaler) 2 puffs INH Q8 PRN PRN Reason: Shortness Of Breath Or Wheezing Stop: 10/13/23 18:33 Apixaban (Apixaban 2.5 Mg Tab) 2.5 mg PO BID [facility] Stop: 10/13/23 20:59 Last Admin: 09/15/23 08:09 Dose: 2.5 mg Artificial Tears (Artificial Tears) 1 drops OPB TID [facility]IKA Stop: 10/13/23 20:59 Last Admin: 09/15/23 08:11 Dose: 1 drops Atorvastatin Calcium (Atorvastatin 10 Mg Tab) 10 mg PO DAILY [facility] Stop: 10/14/23 08:59 Last Admin: 09/15/23 08:09 Dose: 10 mg Dextrose (Dextrose 50% 50 Ml Syringe) 25 - 50 ml IV UD PRN; Protocol PRN Reason: Hypoglycemia Protocol Stop: 10/13/23 18:33 Docusate Sodium (Docusate Sodium 100 Mg Cap) 100 mg PO DAILY [facility]ARIKA Stop: 10/14/23 08:59 Last Admin: 09/15/23 08:10 Dose: 100 mg Fluticasone Propionate (Fluticasone Propionate Na Spr 16 Gm Btl) 2 sprays NA DAILY PRN PRN Reason: Other Stop: 10/13/23 18:33 Folic Acid (Folic Acid 1 Mg Tab) 2 mg PO DAILY [facility] Stop: 10/14/23 08:59 Last Admin: 09/15/23 08:09 Dose: 2 mg Furosemide (Furosemide 40 Mg Tab) 40 mg PO DAILY [facility] Stop: 10/14/23 08:59 Last Admin: 09/15/23 08:10 Dose: 40 mg Gabapentin (Gabapentin 100 Mg Cap) 100 mg PO BID [facility] Stop: 10/13/23 20:59 Last Admin: 09/15/23 08:10 Dose: 100 mg Gabapentin (Gabapentin 300 Mg Cap) 300 mg PO DAILY [facility] Stop: 10/14/23 08:59 Last Admin: 09/15/23 08:10 Dose: 300 mg Glucagon (Glucagon For Inj 1 Mg Vial) 1 mg SQ UD PRN; Protocol PRN Reason: Hypoglycemia Protocol Stop: 10/13/23 18:33 Glucose (Glucose 10 Tab/Tube) 4 - 8 tab PO UD PRN; Protocol PRN Reason: Hypoglycemia Treatment Stop: 10/13/23 18:33 Glucose (Glucose 40% Gel 15 Gm Tube) 15 - 30 gm PO UD PRN; Protocol PRN Reason: Hypoglycemia Protocol Stop: 10/13/23 18:33 Insulin Aspart (Insulin Aspart Per Unit Charge) 0 units SC ACHS [facility]ARIKA Stop: 10/13/23 18:33 Last Admin: 09/15/23 08:17 Dose: 4 units Insulin Glargine (Lantus Per Unit Charge) 8 units SQ BID [facility] Stop: 10/13/23 20:59 Last Admin: 09/15/23 10:06 Dose: 8 units Lidocaine (Lidocaine 5% 1 Patch) 1 patch TD DAILY [facility] Stop: 10/14/23 08:59 Last Admin: 09/15/23 08:08 Dose: 1 patch Lorazepam (Lorazepam 0.5 Mg Tab) 0.5 mg PO BID PRN PRN Reason: Anxiety Stop: 10/13/23 18:33 Last Admin: 09/15/23 00:03 Dose: 0.5 mg Methotrexate (Methotrexate Sodium 2.5 Mg Tab) 5 mg PO Sa@0900 [facility] Stop: 10/18/23 08:59 Metoprolol Succinate (Metoprolol Succ 50mg Ext Rel Tab) 200 mg PO DAILY [facility] Stop: 10/14/23 08:59 Last Admin: 09/15/23 08:09 Dose: 200 mg Miscellaneous (Carbohydrates For Hypoglycemia ) 15 - 30 gm PO UD PRN PRN Reason: Hypoglycemia Protocol Stop: 10/13/23 18:33 Miscellaneous (Remove Lidoderm Patch) 1 each N/A DAILY@2100 [facility] Stop: 10/13/23 20:59 Last Admin: 09/14/23 20:11 Dose: Not Given Montelukast Sodium (Montelukast Sodium 10 Mg Tablet) 10 mg PO DAILY [facility] Stop: 10/14/23 08:59 Last Admin: 09/15/23 08:09 Dose: 10 mg Oxycodone HCl (Oxycodone Hcl Ir 5 Mg Tab (Immediate Release)) 5 mg PO Q4H PRN PRN Reason: Severe Pain (Scale 7, 8, 9,10) Stop: 09/27/23 16:56 Last Admin: 09/15/23 08:16 Dose: 5 mg Pantoprazole Sodium (Pantoprazole 40 Mg Tab) 40 mg PO BID [facility] Stop: 10/13/23 20:59 Last Admin: 09/15/23 08:10 Dose: 40 mg Polyethylene Glycol (Polyethylene (Miralax) 17 Gm Pack) 17 gm PO DAILY [facility] Stop: 10/14/23 08:59 Last Admin: 09/15/23 10:07 Dose: 17 gm Simethicone (Simethicone 80 Mg Chew) 80 mg PO Q6H PRN PRN Reason: Flatulence Stop: 10/14/23 08:32 Spironolactone (Spironolactone 25 Mg Tab) 25 mg PO MoWeFr@0900 [facility] Stop: 10/15/23 08:59 Last Admin: 09/15/23 08:10 Dose: 25 mg Venlafaxine HCl (Venlafaxine Hcl 37.5 Mg Tab) 37.5 mg PO HS [facility] Stop: 10/13/23 20:59 Last Admin: 09/14/23 20:07 Dose: 37.5 mg Vitamin B Complex (Vitamin B Complex Tab) 1 tab PO DAILY [facility] Stop: 10/14/23 08:59 Last Admin: 09/15/23 08:09 Dose: 1 tab Vitamin D (Cholecalciferol 25 Mcg (1000 Units) Tab) 50 mcg PO DAILY [facility] Stop: 10/14/23 08:59 Last Admin: 09/15/23 08:10 Dose: 50 mcg (2) Closed L1 vertebral fracture Encounter type: initial encounter Fracture morphology: unspecified fracture morphology Qualified Code(s): S32.019A - Unspecified fracture of first lumbar vertebra, initial encounter for closed fracture (7) Rheumatoid arthritis Rheumatoid arthritis location: unspecified site Rheumatoid factor presence: unspecified presence Qualified Code(s): M06.9 - Rheumatoid arthritis, unspecified (8) DMII (diabetes mellitus, type 2) Diabetes mellitus snf insulin use: with snf use Diabetes mellitus complication status: with neurologic complications Diabetes mellitus complication detail: with polyneuropathy Qualified Code(s): E11.42 - Type 2 diabetes mellitus with diabetic polyneuropathy; 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
--- NOTE | 2023-09-15 13:09 | Discharge Summary ---
Discharge Summary Date of Service September 15, 2023 Notes For Next Care Provider Please have patient follow up with Orthopedic Spine at [facility], Dr. Love in 1-2 weeks. Recommend ICE three times a day. Medication Changes From Visit * Please utilize Tylenol 1000 mg every 8 hours for 2 weeks. At that point in time please reassess if this medication is still needed for optimal pain control. * Oxycodone 5 mg every 4 hours as needed for severe pain. * Lidocaine patch 5% transdermal, please apply to most painful area and leave on for 12 hours and then remove. Please do this daily. * While utilizing oxycodone please take Colace 100 mg 1 tablet daily as well as MiraLAX 17 g once daily. STOP: * Tramadol Admission HPI Per Admitting Provider This is an 88 y/o female with chronic diastolic heart failure, nonischemic cardiomyopathy s/p biventricular ICD, PAF on Eliquis, prior 3rd degree heart block s/p PPM, mild MR/TR, pulmonary HTN, ANN intolerant to CPAP, insulin- requiring DM, rheumatoid arthritis, CKD, and chronic hypoxic respiratory failure requiring 2L of O2 at baseline who presented to the ED with acute on chronic back pain. Pt reports a fall over the weekend when she tripped on her slippers and fell landing on her buttocks. Since that fall, she has noticed worsening on her chronic back pain. The pain radiates down both of her legs, associated numbness and tingling which is chronic. She is unsure what she was taking for pain before the ED but thinks it may have been Tramadol or Tylenol. She reports whatever she took usually works for her pain but did not help since the fall. She denies weakness in the legs or sensation of the legs giving out on her. She denies any recent illness. Pt lives at [facility]. Otherwise ROS was limited as she became aggravated and stated that she had already answered these questions and didn't want to again. Admission Exam Per Admitting Provider General: awake, alert, irritable but NAD HEENT: no scleral icterus, moist oral mucosa Heart: RRR Lungs: CTA bilaterally Abdomen: soft, NT, +BS Extremities: chronic non-pitting edema bilateral LE MSK: pain in lower back with plantarflexion but strength intact and equal bilaterally Neurologic: no confusion or dysarthria though pt had difficulty with recall of timing of recent events, current medications Principal Dx & Hospital Course #1 = Principal Diagnosis (1) Osteoporotic compression fracture of spine: (2) Closed L1 vertebral fracture: This is an 88 y/o female with chronic diastolic heart failure, nonischemic cardiomyopathy s/p biventricular ICD, PAF on Eliquis, prior 3rd degree heart block s/p PPM, mild MR/TR, pulmonary HTN, ANN intolerant to CPAP, insulin- requiring DM, rheumatoid arthritis, CKD, and chronic hypoxic respiratory failure requiring 2L of O2 at baseline who presented to the ED with acute on chronic back pain. Pt reports recent mechanical fall, after which the worsening pain started. Work-up in the ED showed acute L1 superior end-plate fracture. Pt was referred for admission for pain management, possible evaluation by spine surgery. She was seen and evaluated by orthopedic spine who recommended conservative management at this time. They also recommended LSO brace as well as PT OT evaluations. She was seen and evaluated by PT and OT and was able to ambulate at baseline and therefore was deemed capable to return back to personal care facility with continued home health and PT OT. Her pain was managed on as needed oxycodone 5 mg every 4 hours, scheduled Tylenol and lidocaine patch. Ice was always encouraged 3 times a day. On day of discharge she was in good spirits. She was hopeful to return back to personal care facility. She is passing gas. She is also tolerating diet. She had no medical complications while hospitalized. (3) Chronic hypoxic respiratory failure, on home oxygen therapy: (4) Paroxysmal atrial fibrillation: (5) Non-ischemic cardiomyopathy: (6) Chronic systolic congestive heart failure: (7) Rheumatoid arthritis: (8) DMII (diabetes mellitus, type 2): (9) Diabetic neuropathy: (10) Chronic kidney disease, stage IV (severe): (11) GERD (gastroesophageal reflux disease): Discharge Exam Gen: WD/WN, elderly, female, lying in bed, NAD, A&O x3 HEENT: Normocephalic, atraumatic, conjunctivae moist, sclerae anicteric, mucous membranes moist. Lung: Clear to Auscultation bilaterally, no wheezes/rales/rhonchi Heart: Regular rate, regular rhythm, no murmurs, rubs, or gallops Abdomen: Soft, NT, ND +BS x 4 Extremities: No edema Skin: Warm, no rash, negative turgor. Updated Medication List Medication Instructions Recorded Confirmed Type Systane Lubricant Eye Drops 1 drp OPB TID 05/30/23 09/13/23 History acetaminophen 325 mg tablet 650 mg PO Q6 PRN Fever Or Pain 05/30/23 09/13/23 History albuterol sulfate 90 mcg/actuation 2 inh inhalation Q8 PRN Shortness 05/30/23 09/13/23 History aerosol inhaler Of Breath Or Wheezing apixaban 2.5 mg tablet (Eliquis) 2.5 mg PO BID 05/30/23 09/13/23 History atorvastatin 10 mg tablet 10 mg PO DAILY 05/30/23 09/13/23 History benzonatate 200 mg capsule 200 mg PO TID PRN Cough 05/30/23 09/13/23 History buspirone 5 mg tablet 5 mg PO BID PRN Anxiety 05/30/23 09/13/23 History carbamide peroxide 6.5 % ear drops 5 - 10 drp otic (ear) BID PRN .Wax 05/30/23 09/13/23 History removal cholecalciferol (vitamin D3) 50 2,000 unit PO DAILY 05/30/23 09/13/23 History mcg (2,000 unit) capsule (Vitamin D3) dextromethorphan-guaifenesin 5 10 ml PO Q8H PRN Cough 05/30/23 09/13/23 History mg-100 mg/5 mL oral liquid (Robitussin Honey Max DM) fluticasone propionate 50 2 spray intranasal DAILY PRN Other 05/30/23 09/13/23 History mcg/actuation nasal spray,suspension (Flonase Allergy Relief) folic acid 1 mg tablet 2 mg PO DAILY 05/30/23 09/13/23 History gabapentin 100 mg capsule 100 mg PO BID 05/30/23 09/13/23 History gabapentin 300 mg capsule 300 mg PO DAILY 05/30/23 09/13/23 History insulin glargine U-300 conc 300 25 unit subcut DAILY 05/30/23 09/13/23 History unit/mL (1.5 mL) subcutaneous pen (Toujeo SoloStar U-300 Insulin) insulin lispro 100 unit/mL 1 sliding scale dose subcut TIDM 05/30/23 09/13/23 History subcutaneous solution (Humalog U-100 Insulin) loperamide 2 mg tablet 2 mg PO DIRECTED PRN Diarrhea 05/30/23 09/13/23 History lorazepam 0.5 mg tablet 0.5 mg PO BID PRN Anxiety 05/30/23 09/13/23 History methotrexate sodium 2.5 mg tablet 5 mg PO .Wednesday05/30/23 09/13/23 History metoprolol succinate 200 mg 200 mg PO DAILY 05/30/23 09/13/23 History tablet,extended release 24 hr montelukast 10 mg tablet 10 mg PO DAILY 05/30/23 09/13/23 History pantoprazole 40 mg tablet,delayed 40 mg PO BID 05/30/23 09/13/23 History release spironolactone 25 mg tablet 25 mg PO 3XWK 05/30/23 09/13/23 History venlafaxine 37.5 mg tablet 37.5 mg PO HS 05/30/23 09/13/23 History vitamin B complex 1 tab PO DAILY 05/30/23 09/13/23 History calcium carbonate 300 mg (750 mg) 300 mg PO DAILY PRN Indigestion 08/18/23 0407/07 History chewable tablet (Calcium Antacid) docusate sodium 100 mg capsule 100 mg PO DAILY 08/18/23 09/13/23 History (Colace) hydrocortisone 2.5 % topical cream 1 applic SC BID hemorrhoids 2 08/25/23 09/13/23 Rx with perineal applicator weeks #30 grams polyethylene glycol 3350 17 17 g PO DAILY #510 grams 08/25/23 09/13/23 Rx gram/dose oral powder (Miralax) lidocaine 4 % topical patch 1 patch topical DAILY PRN Other 08/26/23 09/13/23 History (AsperFlex (lidocaine)) Ky Jelly 1 applic miscellaneous DAILY PRN 09/13/23 09/13/23 History dry nostrils due to oxygen use furosemide 40 mg tablet (Lasix) 40 mg PO DAILY 09/13/23 09/13/23 History acetaminophen 500 mg tablet 1,000 mg (2 x 500 mg) PO Q8H 7 09/15/23 Rx (Tylenol Extra Strength) days #42 tabs lidocaine 5 % topical patch See Rx Instructions topical 09/15/23 Rx .COMPLEX #15 ea oxycodone 5 mg tablet 5 mg PO Q4H PRN pain #12 tabs 09/15/23 Rx Hospital Stay Data Consultations 09/13/23 14:07 ED Decision to Admit Stat 09/13/23 18:34 Consult Orthopedic Spine Surgery Routine Diagnostic Imagining Performed Lumbar Spine CT 09/13/23 11:39 CT lumbar spine wo con CLINICAL HISTORY: back pain, sciatic TECHNIQUE: Multidetector row helical CT of the lumbar spine was performed without administration of intravenous contrast. Coronal and sagittal reformations were obtained. Automated dose lowering techniques and/or adjustment according to patient size were utilized for this exam. CT DOSE: 1059.06 mGy.cm Comparison: Comparison is made to CT lumbar spine 05/10/2022 FINDINGS: For counting purposes, the last complete intervertebral disc space is considered L5-S1. There is an acute fracture of the superior endplate of L1 without extension to the posterior elements. Degenerative changes are noted in the visualized spine. Vertebral body alignment is within normal limits. Atherosclerotic changes are seen in the aorta. IMPRESSION: Acute fracture of the superior endplate of L1. No significant retropulsion and no involvement of the posterior elements. ACT 112: Negative or not required by law. Electronically signed by: Yon Quispe M.D. 09/13/2023 12:27 PM Pending Results Patient Have Any Pending Studies at Discharge: No Discharge Instructions Given to Patient (Per Discharging Provider) MEDICATION CHANGES: * Please utilize Tylenol 1000 mg every 8 hours for 2 weeks. At that point in time please reassess if this medication is still needed for optimal pain control. * Oxycodone 5 mg every 4 hours as needed for severe pain. * Lidocaine patch 5% transdermal, please apply to most painful area and leave on for 12 hours and then remove. Please do this daily. * While utilizing oxycodone please take Colace 100 mg 1 tablet daily as well as MiraLAX 17 g once daily. STOP: * Tramadol SUMMARY OF TEST RESULTS: You were admitted to hospital after sustaining a fall. You were found to have a compression fracture of your lumbar spine. You were seen and evaluated by orthopedic spine, Dr. Love. You will follow up with him as an outpatient. It is recommended that you wear your lumbar support brace when out of bed and ambulating. PENDING TEST RESULTS: None RECOMMENDATIONS FOR FOLLOW-UP: Please follow-up with your primary care provider at personal care facility. Please follow-up with orthopedic spine, Dr. Love in 1-2 weeks. They will arrange this appointment. If you do not hear from them please contact [facility]. Please take all medications as prescribed. Recommend you take a daily stool softener while on pain medications as this will cause constipation. Recommend ICE three times a day. A1C was 6.4. OTHER INSTRUCTIONS: Seek medical attention if you have: * temperature above 101 * chest pain or trouble breathing * abdominal pain, nausea, vomiting * diarrhea, dark stools or bloody stools * any unanswered questions or concerns Call 911 if symptoms are severe. Please take good care of yourself. It has been a pleasure taking care of you. Please take care of yourself. If you have any questions regarding your recent hospitalization please contact [facility] and request Renee Farmer @ [phone]. Total Time Total Time Spent Total Time Spent (In Minutes): 45 minutes Supervising Physician Co-Signing Physician Notes Likely age-related osteoporotic fracture of the L1 vertebra
[2023-09-18] MEDS ORDERED: metHOTREXate sodium 2.5 MG TAB PO SCH (09:00)
== END 2023-09-15 14:24 | disposition home or self-care (01) | DRG 543 ==
LOC: ED 10:33 → 3N 15:03 → SUATTDRO 15:03 → 3N 17:55

== ENCOUNTER 2024-06-06 07:49 | Inpatient (IN) ==
--- NOTE | 2024-06-06 08:13 | Emergency Department Note ---
Impression & Plan HTN (hypertension), MARY (acute kidney injury), Weakness ED Provider Note NAME: SWETHA MCCLOUD AGE: 89 SEX: F : 1935 ARRIVES VIA: Ambulance INFORMANT: Patient ED PROVIDER(S): Naeem Red DO CHIEF COMPLAINT: Elevated blood pressure HPI: Patient is an 89-year-old female with a past medical history of diabetes, GERD, hyponatremia, CKD, A-fib on Eliquis, ICD, chronic respiratory failure on 2 L nasal cannula who presents to the ER elevated blood pressure. Per the nurse at the [facility] patient was complaining of pain all over which is typical for her and she checked her blood pressure and vitals and blood pressure was elevated at 180s. She gave her hydrocodone instead of the Ativan that she normally gets. She notes that that improved her pain just slightly but her blood pressure was still elevated and consequently she called for EMS. Patient denies any headache or change in vision. No chest pain or shortness of breath. No belly pain. No nausea, vomiting, or diarrhea. No weakness or numbness in the arms or legs. Nurse also provides additional history that she did not get any of her morning meds including her metoprolol. ADDITIONAL HISTORY OBTAINED: Per HPI Chronic Medical/Social Conditions Affecting Care: Per HPI PAST MEDICAL HISTORY:See Below PAST SURGICAL HISTORY:See Below FAMILY HISTORY:See Below SOCIAL HISTORY:See Below HOME MEDICATIONS:See Below ALLERGIES:See Below VITALS:See Below PHYSICAL EXAMINATION: GENERAL: Sitting up in bed, alert, well appearing, well nourished, no distress, non-toxic EYE EXAM: normal conjunctiva. PERRL and EOM's grossly intact. OROPHARYNX: no exudate, no erythema, lips, buccal mucosa, and tongue normal and mucous membranes are moist NECK: supple, no nuchal rigidity, no adenopathy, non-tender LUNGS: Clear to auscultation. Normal chest wall mechanics HEART: no murmurs, S1 normal and S2 normal ABDOMEN: abdomen soft, non-tender, normo-active bowel sounds, no masses, no rebound or guarding. BACK: Back is symmetrical on inspection and there is no deformity, no midline tenderness, no CVA tenderness. SKIN: no rashes and no bruising UPPER EXTREMITIES: upper extremities are grossly normal. LOWER EXTREMITIES: No pitting edema. NEURO EXAM: Normal sensorium, cranial nerves II-XII intact, normal speech, no weakness of arms, no weakness of legs. No drift. Finger to nose intact. Gross sensation intact. MEDICAL DECISION MAKING: Patient is an 89-year-old female who presents ER for the above-stated complaint. IV was established and blood work was obtained. Labs show a leukopenia at nearly 4000. No significant anemia. BMP with a creatinine of 2.5 up from baseline of about 1.7. LFTs bilirubin was unremarkable. Troponin was negative. Lipase normal. UA clean. COVID-negative. Patient was given IV fluids. Chest x-ray was clean. Patient was updated at bedside and discussed the case with the hospitalist for further evaluation management and treatment with her blood pressure is up around 180s and BMP suggesting MARY. Consults/Care Managements Discussions: Per [facility] Triage Nursing notes reviewed. Limited review of prior medical records performed Vital Signs: reviewed and remarkable for no significant abnormalities Differential diagnosis: Infection, dehydration, metabolic abnormality, hypo/hyperglycemia, electrolyte disturbance, anemia, hypoxia, cardiac sources, intracerebral event, toxicologic, neurologic, as well as other pathologies. ER treatment provided: See below Diagnostics interpreted by me include EKG and cardiac monitoring as listed below: -Cardiac Monitoring: An order was placed for continuous cardiac monitoring. The monitor shows a rate of 80 with paced rhythm. -ECG: Paced rate of 84 Normal axis no PVCs QTc 508 -Laboratory studies:Interpreted by me as stated above in [facility] and shown below. Imaging studies: Xrays: As interpreted by me: Portable AP upright 1 view of the chest shows no focal infiltrate CTs show: none Procedures:none Critical Care: None Past Med/Surg History Problem List (Updated 06/06/24 @ 13:13 by Naeem Red DO) Weakness (Acute) MARY (acute kidney injury) (Acute) HTN (hypertension) (Acute) UTI (urinary tract infection) Acute worsening of stage 4 chronic kidney disease Hypertensive urgency Chronic constipation Skin tear of upper extremity (Acute) Closed compression fracture of L2 vertebra Osteoporotic compression fracture of spine Chronic hypoxic respiratory failure, on home oxygen therapy ICD (implantable cardioverter-defibrillator) battery depletion Abnormal CT scan, chest History of COVID-19 Morbid obesity COVID-19 in immunocompromised patient Lower extremity weakness Lumbar disc herniation with radiculopathy Lumbar spinal stenosis Atrial fibrillation Anxiety and depression Degenerative lumbar spinal stenosis Influenza A Ambulatory dysfunction (Acute) Callus of foot Hypoglycemia due to insulin Diabetic neuropathy (Chronic) Chronic kidney disease, stage IV (severe) GERD (gastroesophageal reflux disease) Rheumatoid arthritis DMII (diabetes mellitus, type 2) Hyponatremia Acute hypoxemic respiratory failure due to COVID-19 (Acute) COVID-19 (Acute ~03/2021) Abnormal CT of the abdomen GERD (gastroesophageal reflux disease) (Chronic) Secondary hyperparathyroidism (Chronic) SNHL (sensorineural hearing loss) Paroxysmal atrial fibrillation (Chronic) Degenerative joint disease (DJD) of lumbar spine (Chronic) Anticoagulant long-term use (Chronic) Diverticulosis of sigmoid colon (Chronic) Diabetic peripheral neuropathy associated with type 2 diabetes mellitus (Chronic) Diabetes mellitus (Chronic) Obstructive sleep apnea of adult Loss of protective sensation of skin of foot (Chronic) Dysesthesia (Chronic) Asymmetrical right sensorineural hearing loss Breast mass Lower back pain Frequent PVCs Ventricular bigeminy (Acute) Hypophosphatemia Chronic anticoagulation (Chronic) Abnormal CT of the abdomen Sensorineural hearing loss (SNHL) of both ears Chronic systolic congestive heart failure (Chronic) Non-ischemic cardiomyopathy (Chronic) Biventricular ICD (implantable cardioverter-defibrillator) in place (Chronic 2016) [facility] [employer] [facility]>GETS CHECKED BY DR. VARGAS Dyslipidemia (Chronic) Hypertension (Chronic) Rheumatoid arthritis (Chronic) Stage III chronic kidney disease (Chronic) Medical History Chronic diarrhea Degenerative disc disease Diabetes mellitus, type 2 Hx of squamous cell carcinoma CARRILLO (dyspnea on exertion) History of basal cell carcinoma GERD without esophagitis PAC (premature atrial contraction) Third degree AV block Surgical History History of anesthesia reaction CONFUSION WITH GALLBLADDER REMOVAL, AWARENESS DURING COLONOSCOPY History of esophagogastroduodenoscopy (EGD) History of colonoscopy History of tooth extraction History of cataract surgery RT/LEFT S/P tubal ligation S/P total knee arthroplasty RT/LEFT S/P cholecystectomy Family History Father Heart disease Mother Diabetes Heart disease Myocardial infarction Family history of diabetes mellitus Grandfather (Maternal) Prostate cancer Family history of diabetes mellitus Other Family history non-contributory No family history of adverse response to anesthesia Denies family history of Ovarian cancer Breast cancer Colorectal cancer Social History Smoking Status: Unknown if ever smoked Second Hand Exposure: No; Do You Dip or Chew Tobacco: Yes; Hx Alcohol Use: No Hx Substance Use: No Preferred Language: Macedonian Communication Ability: Effective Communication Ability Comment: pt does have earring aids Visual Impairment: No Limitations Hearing Ability: Use of Hearing Aid Bridge Operator Required: No Beliefs That Will Affect Care: None marital status: Single Current Living Situation: Personal Care Facility Current Living Situation Comment: pt lives alone, has daughter and son check on her current occupational status: retired Feels Safe at Home: Yes Childhood Exposure to Second-Hand Smoke: Yes Diet: regular Dental Care, Regularly: Yes Physical Activity Frequency: Does not Exercise Seatbelt Use: always Sunscreen Use: Yes Assistive Devices: Walker Allergies Allergies Allergy/AdvReac Type Severity Reaction Status Date / Time amiodarone AdvReac Intermediate gi distress Verified 06/02/24 13:43 aspirin AdvReac Intermediate history of Verified 06/02/24 13:43 ulcers nortriptyline AdvReac Unknown DOESN'T Verified 06/02/24 13:43 REMEMBER Home Meds Home Medications Medication Instructions Recorded Confirmed apixaban 2.5 mg tablet (Eliquis) 2.5 mg PO BID 05/30/23 06/06/24 atorvastatin 10 mg tablet 10 mg PO HS 05/30/23 06/06/24 benzonatate 200 mg capsule 200 mg PO TID PRN Cough 05/30/23 06/06/24 cholecalciferol (vitamin D3) 50 2,000 unit PO DAILY 05/30/23 06/06/24 mcg (2,000 unit) capsule (Vitamin D3) folic acid 1 mg tablet 2 mg PO DAILY 05/30/23 06/06/24 loperamide 2 mg tablet 2 mg PO DIRECTED PRN Diarrhea 05/30/23 06/06/24 methotrexate sodium 2.5 mg tablet 5 mg PO .Wednesday05/30/23 06/06/24 metoprolol succinate 200 mg 200 mg PO DAILY 05/30/23 06/06/24 tablet,extended release 24 hr montelukast 10 mg tablet 10 mg PO QPM 05/30/23 06/06/24 pantoprazole 40 mg tablet,delayed 40 mg PO BID 05/30/23 06/06/24 release spironolactone 25 mg tablet 25 mg PO 3XWK 05/30/23 06/06/24 vitamin B complex 1 tab PO DAILY 05/30/23 06/06/24 lidocaine 4 % topical patch 1 patch topical DAILY PRN Other 08/26/23 06/06/24 (AsperFlex (lidocaine)) furosemide 40 mg tablet (Lasix) 40 mg PO DAILY 09/13/23 06/06/24 calcium carbonate (Antacid Ext Str 300 mg PO TID PRN stomach acid 10/27/23 06/06/24 (calcium carb)) quetiapine 25 mg tablet 25 mg PO HS 10/27/23 06/06/24 gabapentin 300 mg capsule 300 mg PO HS 12/15/23 06/06/24 insulin glargine 100 unit/mL (3 25 unit subcut QAM 12/15/23 06/06/24 mL) subcutaneous pen (Lantus Solostar U-100 Insulin) acetaminophen 500 mg tablet 1,000 mg PO BID 03/09/24 06/06/24 buspirone 7.5 mg tablet 7.5 mg PO TID 03/09/24 06/06/24 hydrocodone 10 mg-acetaminophen 1 tab PO TID Moderate Pain (Scale 03/09/24 06/06/24 300 mg tablet Score 5-6) lorazepam 1 mg tablet 1 mg PO BID 03/09/24 06/06/24 lorazepam 1 mg tablet 1 mg PO DAILY PRN Anxiety 03/09/24 06/06/24 multivitamin (Daily-Kerry tablet) 1 tab PO DAILY 03/09/24 06/06/24 venlafaxine 75 mg capsule,extended 75 mg PO HS 03/09/24 06/06/24 release 24 hr vit C 250 mg-vit E 90 mg-zinc 40 1 tab PO BID 03/09/24 06/06/24 mg-copper 1 [id number] capsule (PreserVision AREDS-2) docusate sodium 100 mg capsule 100 mg PO DAILY 04/05/24 06/06/24 (Colace) gabapentin 100 mg capsule 100 mg PO DAILY 04/06/24 06/06/24 sulfamethoxazole 800 1 tab PO BID 06/06/24 06/06/24 mg-trimethoprim 160 mg tablet (Bactrim DS) Previous Rx's Medication Instructions Recorded ondansetron 4 mg disintegrating 4 mg PO .daily prn #30 tabs 04/05/24 tablet polyethylene glycol 3350 17 gram 17 g PO DAILY PRN Constipation #30 04/05/24 oral powder packet (Miralax) ea simethicone 180 mg capsule 180 mg PO TID 30 days #90 caps 04/05/24 (Phazyme) Results & Data (ED) Vital Signs Vital Signs - 24 hr 06/06/24 07:44 06/06/24 07:44 06/06/24 07:56 Temperature 36.8 C Temperature Source Oral Pulse Rate 88 Pulse Rate from SpO2 Sensor Respiratory Rate 18 Blood Pressure 183/102 H 183/102 H Blood Pressure Mean 129 127 Pulse Oximetry 96 Oxygen Delivery Method Room Air Room Air Oxygen Flow Rate Sepsis Recent Fever Within 48 Hours No Sepsis New/Unexplained Change in Mental Status No Sepsis Action Taken by Nursing No Action Required 06/06/24 07:56 06/06/24 07:58 06/06/24 08:00 Temperature Temperature Source Pulse Rate 84 86 Pulse Rate from SpO2 Sensor 85 Respiratory Rate 14 Blood Pressure 183/102 H Blood Pressure Mean 127 Pulse Oximetry 92 Oxygen Delivery Method Oxygen Flow Rate Sepsis Recent Fever Within 48 Hours Sepsis New/Unexplained Change in Mental Status Sepsis Action Taken by Nursing 06/06/24 08:00 06/06/24 08:30 06/06/24 08:30 Temperature Temperature Source Pulse Rate 80 Pulse Rate from SpO2 Sensor 80 Respiratory Rate 20 Blood Pressure 178/107 H 152/114 H Blood Pressure Mean 151 126 Pulse Oximetry 96 Oxygen Delivery Method Oxygen Flow Rate Sepsis Recent Fever Within 48 Hours Sepsis New/Unexplained Change in Mental Status Sepsis Action Taken by Nursing 06/06/24 08:48 06/06/24 08:59 06/06/24 09:00 Temperature Temperature Source Pulse Rate 86 Pulse Rate from SpO2 Sensor Respiratory Rate 15 Blood Pressure 169/90 H 174/88 H Blood Pressure Mean 112 139 Pulse Oximetry Oxygen Delivery Method Oxygen Flow Rate Sepsis Recent Fever Within 48 Hours Sepsis New/Unexplained Change in Mental Status Sepsis Action Taken by Nursing 06/06/24 09:15 06/06/24 09:18 06/06/24 09:30 Temperature Temperature Source Pulse Rate 81 80 Pulse Rate from SpO2 Sensor Respiratory Rate Blood Pressure 149/88 H Blood Pressure Mean 106 Pulse Oximetry Oxygen Delivery Method Oxygen Flow Rate Sepsis Recent Fever Within 48 Hours Sepsis New/Unexplained Change in Mental Status Sepsis Action Taken by Nursing 06/06/24 10:12 Temperature Temperature Source Pulse Rate 80 Pulse Rate from SpO2 Sensor Respiratory Rate 16 Blood Pressure Blood Pressure Mean Pulse Oximetry 100 Oxygen Delivery Method Oxygen Flow Rate 2 Sepsis Recent Fever Within 48 Hours Sepsis New/Unexplained Change in Mental Status Sepsis Action Taken by Nursing Laboratory Data 06/06/24 08:13 06/06/24 08:13 Lab Results 06/06/24 06/06/24 06/06/24 Range/Units 08:13 09:09 09:42 WBC 3.99 L (4.8-10.8) K/ul RBC 3.80 L (4.20-5.40) M/uL Hgb 12.3 (12.0-16.0) g/dl Hct 37.9 (37.0-47.0) % MCV 99.7 (80.0-100.0) fL MCH 32.4 (25.0-34.0) pg MCHC 32.5 (32.0-36.0) g/dL RDW Std Deviation 53.1 H (36.4-46.3) fL RDW Coeff of Shai 14.9 H (11.5-14.5) % Plt Count 176 (130-400) K/uL MPV 9.1 L (9.4-12.4) fL Immature Gran % (Auto) 0.3 % Neut % (Auto) 50.9 % Lymph % (Auto) 33.8 % [place] % (Auto) 8.0 % Eos % (Auto) 6.0 % Baso % (Auto) 1.0 % Neut # (Auto) 2.03 (1.40-6.50) K/uL Lymph # (Auto) 1.35 (1.20-3.40) K/uL [place] # (Auto) 0.32 (0.11-0.59) K/uL Eos # (Auto) 0.24 (0.00-0.50) K/uL Baso # (Auto) 0.04 (0.00-0.20) K/uL Immature Gran # (Auto) 0.01 (0.01-0.20) K/uL Sodium 140 (136-145) mmol/L Potassium 4.4 (3.5-5.1) mmol/L Chloride 102 (98-107) mmol/L Carbon Dioxide 34 H (21-32) mmol/L Anion Gap 4 (3-11) BUN 34 H (6-23) mg/dl Creatinine 2.55 H (0.6-1.2) mg/dl Est Cr Clr Drug Dosing 17.7 ml/min eGFR 17.73 BUN/Creatinine Ratio 13.3 (10-20) Glucose 77 (70-99(Fasting)) mg/dl Calcium 9.4 (8.6-10.3) mg/dl Total Bilirubin 0.5 (0.2-1.0) mg/dl AST 28 (13-39) U/L ALT 21 (7-52) U/L Alkaline Phosphatase 74 (34-104) U/L Troponin I High Sens 9.8 (0-14) pg/ml B-Natriuretic Peptide 118 H (0-100) pg/ml Total Protein 6.5 (6.0-8.3) gm/dl Albumin 4.1 (3.4-5.0) gm/dl Globulin 2.4 L (2.5-4.0) gm/dl Albumin/Globulin Ratio 1.7 (0.9-2) Lipase 23 (11-82) U/L Urine Color Yellow Urine Appearance Clear (Clear) Urine pH 8.0 H (4.5-7.5) Ur Specific [place] 1.011 (1.000-1.030) Urine Protein Trace H (Negative) Urine Glucose (UA) Negative (Negative) Urine Ketones Negative (Negative) Urine Blood Negative (Negative) Urine Nitrite Negative (Negative) Urine Bilirubin Negative (Negative) Urine Urobilinogen Negative (Negative) Ur Leukocyte Esterase Negative (Negative) Urine WBC (Auto) 0-5 (0-5) /hpf Urine RBC (Auto) 6-10 H (0-2) /hpf U Hyaline Cast (Auto) 0-2 (0-2) /lpf U Epithel Cells (Auto) 0-2 (0-2) /hpf Urine Bacteria (Auto) None Seen (None Seen) SARS-CoV-2, RNA, NAAT NEGATIVE (NEGATIVE) Administered Medications Discontinued Medications Sodium Chloride (Nss) 500 mls @ 999 mls/hr IV .Q31M ONE Stop: 06/06/24 09:52 Last Infusion: 06/06/24 12:27 Dose: Infused Documented By: Admin: 06/06/24 09:48 Dose: 999 mls/hr Documented By: NIDA Lorazepam (Lorazepam 1 Mg Tab) 1 mg SL NOW STA Stop: 06/06/24 08:14 Last Admin: 06/06/24 08:31 Dose: 1 mg Documented By: NIDA Metoprolol Succinate (Metoprolol Succ 50mg Ext Rel Tab) 200 mg PO NOW STA Stop: 06/06/24 08:14 Last Admin: 06/06/24 08:31 Dose: 200 mg Documented By: NIDA Imaging Data Radiologist's Impression: Chest X-Ray 06/06/24 08:05 XR chest 1V portable CLINICAL HISTORY: Chest pain, nonspecific TECHNIQUE: Single frontal radiograph of the chest was obtained. Comparison: Comparison is made to chest radiograph 01/28/2024 FINDINGS: Lines and tubes are stable. Calcified aortic knob is seen. Lungs are underinflated but clear. No evidence of pleural effusion or pneumothorax. Degenerative changes are seen in the shoulder joints. IMPRESSION: No acute chest disease. ACT 112: Negative or not required by law. Electronically signed by: Yon Quispe M.D. 06/06/2024 8:23 AM Discharge Plan Visit Data Chief Complaint: Hypertension Stated Complaint: BODY PAIN ED Provider: Naeem Red Discharge Problem: HTN (hypertension), MARY (acute kidney injury), Weakness Patient Disposition: Admitted As Inpatient Discharge Instructions Interventions: ED Discharge Assessment Last Done: 06/06/24 12:02 Discharge Problem: HTN (hypertension) Qualifiers: Hypertension type: unspecified Qualified Code(s): I10 - Essential (primary) hypertension
--- NOTE | 2024-06-06 08:25 | XRay Report ---
XR chest 1V portable CLINICAL HISTORY: Chest pain, nonspecific TECHNIQUE: Single frontal radiograph of the chest was obtained. Comparison: Comparison is made to chest radiograph 01/28/2024 FINDINGS: Lines and tubes are stable. Calcified aortic knob is seen. Lungs are underinflated but clear. No evid ence of pleural effusion or pneumothorax. Degenerative changes are seen in the shoulder joints. IMPRESSION: No acute chest disease. ACT 112: Negative or not required by law. Electronically signed by: Yon Quispe M.D. 06/06/2024 8:23 AM
[2024-06-06] MEDS: LORazepam 1 MG TAB SL STA (08:31)
[2024-06-06] MEDS: METOPROLOL SUCC 50MG EXT REL TAB PO STA (08:31)
[2024-06-06 08:46] LABS: Albumin Globulin Ratio 1.7 (0.9-2); Albumin Level 4.1 gm/dl (3.4-5.0); BUN Creatinine Ratio 13.3 (10-20); Bilirubin,Total 0.5 mg/dl (0.2-1.0); Calcium 9.4 mg/dl (8.6-10.3); Creatinine Clr Calc Pharmacy 17.7 ml/min; Globulin 2.4 gm/dl (2.5-4.0); Potassium 4.4 mmol/L (3.5-5.1); Total Protein 6.5 gm/dl (6.0-8.3)
[2024-06-06 08:49] LABS: Basophils # (auto) 0.04 K/uL (0.00-0.20); Eosinophils # (auto) 0.24 K/uL (0.00-0.50); Hematocrit (blood only) 37.9 % (37.0-47.0); Hemoglobin 12.3 g/dl (12.0-16.0); Immature Granulocytes # (auto) 0.01 K/uL (0.01-0.20); Immature Granulocytes % (auto) 0.3 %; Lymphocytes # (auto) 1.35 K/uL (1.20-3.40); Lymphocytes % (auto) 33.8 %; Mean Corpuscular Hemoglobin 32.4 pg (25.0-34.0); Mean Corpuscular Hgb Conc 32.5 g/dL (32.0-36.0); Mean Corpuscular Volume 99.7 fL (80.0-100.0); Mean Platelet Volume 9.1 fL (9.4-12.4); Monocytes # (auto) 0.32 K/uL (0.11-0.59); Neutrophils # (auto) 2.03 K/uL (1.40-6.50); Neutrophils % (auto) 50.9 %; Platelet Count 176 K/uL (130-400); RDW Coefficient of Variation 14.9 % (11.5-14.5); RDW Standard Deviation 53.1 fL (36.4-46.3); White Blood Count 3.99 K/ul (4.8-10.8)
[2024-06-06 08:51] LABS: Troponin I High Sensitivity 9.8 pg/ml (0-14)
[2024-06-06] MEDS: SODIUM CHLORIDE 0.9% 500 ML IV ONE (09:48)
--- NOTE | 2024-06-06 11:06 | History & Physical Report ---
Date of Service June 06, 2024 Assessment & Plan (1) Hypertensive urgency: Plan: BP was 183/103 on presentation Got Metoprolol succinate in ER BP now 149/88 Continue home antihypertensives and monitor (2) Acute worsening of stage 4 chronic kidney disease: Plan: Cr is 2.55 Baseline seem to be in 1.7 to 1.9 Increased Cr likely related to Bactrim patient has been on in the past week Bactrim stopped Will monitor. If does not improve or worsens, consult [facility] that follows patient outpatient Continue home diuretic considering leg edema (3) UTI (urinary tract infection): Plan: UCx from 05/29/24 grew Klebsiella pneumonia Per [facility] records, she has been on Bactrim since Patient still reports urinary freq Get UA and Urine culture Stop bactrim as above and continue IV ceftriaxone for now (4) Chronic hypoxic respiratory failure, on home oxygen therapy: Plan: Stable Continue home oxygen (5) Atrial fibrillation: Plan: Paroxysmal Afib Rate controlled Continue metoprolol and AFib (6) DMII (diabetes mellitus, type 2): Plan: HbA1c was 6.4 in 09/2023 Continue home lantus 25U daily ISS Monitor (7) Rheumatoid arthritis: Plan: Pain control Continue weekly methotrexate (8) Anxiety and depression: Plan: Continue home ativan and seroquel (9) Non-ischemic cardiomyopathy: Plan: Continue toprol XL, lasix and spironolactone Follows with [facility] Reports chronic leg edema DVT ppx: eliquis Code status: DNR per patient COVID is negative Considering report of sinus congestion, will check RSV/flu. I spent a total of 75 minutes coordinating, documenting and providing care for this patient excluding time spent in performance of separately billed services History of Present Illness Chief Complaint: Generalized pain Primary Care Provider: [facility] 89 year old woman with history of Paroxysmal Afib on eliquis, CKD, DM2, Nonischemic cardiomyopathy (EF 20-25% subsequently improved to most recent value of 60-65%) s/p biventricular ICD, ANN intolerant to CPAP, rheumatoid arthritis, CKD, and chronic hypoxic respiratory failure requiring 2L of O2 Rheumatoid arthritis, lumbar degenerative disease who was sent in from [facility] for generalized pain and elevated blood pressure. Patient reported that she has chronic generalized body pains especially in hands, feet and low back due to her arthritis. She also reported peripheral neuropathy with paresthesia However last night, she had increased body pains and was not feeling well She stated the RN at the facility check her BP and it was elevated and sent her in. She reports no fever, chills, nausea, vomiting, abd pain, diarrhea She uses oxygen at 2L/min chronically Reports sinus congestion and occasional rhinorrhea which she thinks is due to allergy but denied sore throat, SOB at rest or chest pain Reports chronic leg swelling and uses wheel chair to ambulate Reports urinary frequency that is increased within the past week. Was diagnosed of UTI and has been on antibiotic but symptoms persist Denied dysuria, low abd pain or flank pain. Allergies Allergy/AdvReac Type Severity Reaction Status Date / Time amiodarone AdvReac Intermediate gi distress Verified 06/02/24 13:43 aspirin AdvReac Intermediate history of Verified 06/02/24 13:43 ulcers nortriptyline AdvReac Unknown DOESN'T Verified 06/02/24 13:43 REMEMBER Home Medications Medication Instructions Recorded Confirmed Type apixaban 2.5 mg tablet (Eliquis) 2.5 mg PO BID 05/30/23 06/06/24 History atorvastatin 10 mg tablet 10 mg PO HS 05/30/23 06/06/24 History benzonatate 200 mg capsule 200 mg PO TID PRN Cough 05/30/23 06/06/24 History cholecalciferol (vitamin D3) 50 2,000 unit PO DAILY 05/30/23 06/06/24 History mcg (2,000 unit) capsule (Vitamin D3) folic acid 1 mg tablet 2 mg PO DAILY 05/30/23 06/06/24 History loperamide 2 mg tablet 2 mg PO DIRECTED PRN Diarrhea 05/30/23 06/06/24 History methotrexate sodium 2.5 mg tablet 5 mg PO .Wednesday05/30/23 06/06/24 History metoprolol succinate 200 mg 200 mg PO DAILY 05/30/23 06/06/24 History tablet,extended release 24 hr montelukast 10 mg tablet 10 mg PO QPM 05/30/23 06/06/24 History pantoprazole 40 mg tablet,delayed 40 mg PO BID 05/30/23 06/06/24 History release spironolactone 25 mg tablet 25 mg PO 3XWK 05/30/23 06/06/24 History vitamin B complex 1 tab PO DAILY 05/30/23 06/06/24 History lidocaine 4 % topical patch 1 patch topical DAILY PRN Other 08/26/23 06/06/24 History (AsperFlex (lidocaine)) furosemide 40 mg tablet (Lasix) 40 mg PO DAILY 09/13/23 06/06/24 History calcium carbonate (Antacid Ext Str 300 mg PO TID PRN stomach acid 10/27/23 06/06/24 History (calcium carb)) quetiapine 25 mg tablet 25 mg PO HS 10/27/23 06/06/24 History gabapentin 300 mg capsule 300 mg PO HS 12/15/23 06/06/24 History insulin glargine 100 unit/mL (3 25 unit subcut QAM 12/15/23 06/06/24 History mL) subcutaneous pen (Lantus Solostar U-100 Insulin) acetaminophen 500 mg tablet 1,000 mg PO BID 03/09/24 06/06/24 History buspirone 7.5 mg tablet 7.5 mg PO TID 03/09/24 06/06/24 History hydrocodone 10 mg-acetaminophen 1 tab PO TID Moderate Pain (Scale 03/09/24 06/06/24 History 300 mg tablet Score 5-6) lorazepam 1 mg tablet 1 mg PO BID 03/09/24 06/06/24 History lorazepam 1 mg tablet 1 mg PO DAILY PRN Anxiety 03/09/24 06/06/24 History multivitamin (Daily-Kerry tablet) 1 tab PO DAILY 03/09/24 06/06/24 History venlafaxine 75 mg capsule,extended 75 mg PO HS 03/09/24 06/06/24 History release 24 hr vit C 250 mg-vit E 90 mg-zinc 40 1 tab PO BID 03/09/24 06/06/24 History mg-copper 1 [id number] capsule (PreserVision AREDS-2) docusate sodium 100 mg capsule 100 mg PO DAILY 04/05/24 06/06/24 History (Colace) ondansetron 4 mg disintegrating 4 mg PO .daily prn #30 tabs 04/05/24 06/06/24 Rx tablet polyethylene glycol 3350 17 gram 17 g PO DAILY PRN Constipation #30 04/05/24 06/06/24 Rx oral powder packet (Miralax) ea simethicone 180 mg capsule 180 mg PO TID 30 days #90 caps 04/05/24 06/06/24 Rx (Phazyme) gabapentin 100 mg capsule 100 mg PO DAILY 04/06/24 06/06/24 History sulfamethoxazole 800 1 tab PO BID 06/06/24 06/06/24 History mg-trimethoprim 160 mg tablet (Bactrim DS) Past Med/Surg History Problem List (Updated 06/06/24 @ 11:32 by Heather Ray MD) UTI (urinary tract infection) Acute worsening of stage 4 chronic kidney disease Hypertensive urgency Chronic constipation Skin tear of upper extremity (Acute) Closed compression fracture of L2 vertebra Osteoporotic compression fracture of spine Chronic hypoxic respiratory failure, on home oxygen therapy ICD (implantable cardioverter-defibrillator) battery depletion Abnormal CT scan, chest History of COVID-19 Morbid obesity COVID-19 in immunocompromised patient Lower extremity weakness Lumbar disc herniation with radiculopathy Lumbar spinal stenosis Atrial fibrillation Anxiety and depression Degenerative lumbar spinal stenosis Influenza A Ambulatory dysfunction (Acute) Callus of foot Hypoglycemia due to insulin Diabetic neuropathy (Chronic) Chronic kidney disease, stage IV (severe) GERD (gastroesophageal reflux disease) Rheumatoid arthritis DMII (diabetes mellitus, type 2) Hyponatremia Acute hypoxemic respiratory failure due to COVID-19 (Acute) COVID-19 (Acute ~03/2021) Abnormal CT of the abdomen GERD (gastroesophageal reflux disease) (Chronic) Secondary hyperparathyroidism (Chronic) SNHL (sensorineural hearing loss) Paroxysmal atrial fibrillation (Chronic) Degenerative joint disease (DJD) of lumbar spine (Chronic) Anticoagulant long-term use (Chronic) Diverticulosis of sigmoid colon (Chronic) Diabetic peripheral neuropathy associated with type 2 diabetes mellitus (Chronic) Diabetes mellitus (Chronic) Obstructive sleep apnea of adult Loss of protective sensation of skin of foot (Chronic) Dysesthesia (Chronic) Asymmetrical right sensorineural hearing loss Breast mass Lower back pain Frequent PVCs Ventricular bigeminy (Acute) Hypophosphatemia Chronic anticoagulation (Chronic) Abnormal CT of the abdomen Sensorineural hearing loss (SNHL) of both ears Chronic systolic congestive heart failure (Chronic) Non-ischemic cardiomyopathy (Chronic) Biventricular ICD (implantable cardioverter-defibrillator) in place (Chronic 2016) Eyestorm>GETS CHECKED BY DR. VARGAS Dyslipidemia (Chronic) Hypertension (Chronic) Rheumatoid arthritis (Chronic) Stage III chronic kidney disease (Chronic) Medical History Chronic diarrhea Degenerative disc disease Diabetes mellitus, type 2 Hx of squamous cell carcinoma CARRILLO (dyspnea on exertion) History of basal cell carcinoma GERD without esophagitis PAC (premature atrial contraction) Third degree AV block Surgical History History of anesthesia reaction CONFUSION WITH GALLBLADDER REMOVAL, AWARENESS DURING COLONOSCOPY History of esophagogastroduodenoscopy (EGD) History of colonoscopy History of tooth extraction History of cataract surgery RT/LEFT S/P tubal ligation S/P total knee arthroplasty RT/LEFT S/P cholecystectomy Family History Father Heart disease Mother Diabetes Heart disease Myocardial infarction Family history of diabetes mellitus Grandfather (Maternal) Prostate cancer Family history of diabetes mellitus Other Family history non-contributory No family history of adverse response to anesthesia Denies family history of Ovarian cancer Breast cancer Colorectal cancer Social History Smoking Status: Unknown if ever smoked Second Hand Exposure: No; Do You Dip or Chew Tobacco: Yes; Hx Alcohol Use: No Hx Substance Use: No Preferred Language: Faroese Communication Ability: Effective Communication Ability Comment: pt does have earring aids Visual Impairment: No Limitations Hearing Ability: Use of Hearing Aid Teletypesetter Monitor Required: No Beliefs That Will Affect Care: None marital status: Single Current Living Situation: Personal Care Facility Current Living Situation Comment: pt lives alone, has daughter and son check on her current occupational status: retired Feels Safe at Home: Yes Childhood Exposure to Second-Hand Smoke: Yes Diet: regular Dental Care, Regularly: Yes Physical Activity Frequency: Does not Exercise Seatbelt Use: always Sunscreen Use: Yes Assistive Devices: Walker Review of Systems Review of Systems: All systems reviewed & are unremarkable except as noted in HPI & below Physical Exam Constitutional: + well hydrated and + obese; no acute di stress Eyes: PERRL, conjunctivae normal, anicteric sclerae ENMT: external ear and nose normal, oropharynx normal Respiratory: normal respiratory effort; no respiratory distress Auscultation: lungs clear to auscultation bilaterally Cardiovascular: RRR S1 S2 Gastrointestinal (Abdomen): normal bowel sounds, soft, nontender, no hepatosplenomegaly Musculoskeletal: Bilateral pedal edema Neurologic: PERRL, EOMI, accommodation nl, no face palsy, no dysarthria Psychiatric: A+Ox3, euthymic affect Results & Data Results & Data Vital Signs (Past 12 Hours) Vital Signs Temp Pulse Resp BP Pulse Ox O2 Del Method O2 Flow Rate 06/06/24 10:12 80 16 100 2 06/06/24 09:30 149/88 H 06/06/24 09:18 80 06/06/24 09:15 81 06/06/24 09:00 174/88 H 06/06/24 08:59 169/90 H 06/06/24 08:48 86 15 06/06/24 08:30 80 20 96 06/06/24 08:30 152/114 H 06/06/24 08:00 178/107 H 06/06/24 08:00 86 14 92 06/06/24 07:58 84 06/06/24 07:56 183/102 H 06/06/24 07:56 183/102 H 06/06/24 07:44 Room Air 06/06/24 07:44 36.8 C 88 18 183/102 H 96 Room Air Laboratory Results Abnormal lab results 06/06/24 Range/Units 08:13 WBC 3.99 L (4.8-10.8) K/ul RBC 3.80 L (4.20-5.40) M/uL RDW Std Deviation 53.1 H (36.4-46.3) fL RDW Coeff of Shai 14.9 H (11.5-14.5) % MPV 9.1 L (9.4-12.4) fL Carbon Dioxide 34 H (21-32) mmol/L BUN 34 H (6-23) mg/dl Creatinine 2.55 H (0.6-1.2) mg/dl B-Natriuretic Peptide 118 H (0-100) pg/ml Globulin 2.4 L (2.5-4.0) gm/dl Diagnostic Findings XR chest 1V portable CLINICAL HISTORY: Chest pain, nonspecific TECHNIQUE: Single frontal radiograph of the chest was obtained. Comparison: Comparison is made to chest radiograph 01/28/2024 FINDINGS: Lines and tubes are stable. Calcified aortic knob is seen. Lungs are underinflated but clear. No evidence of pleural effusion or pneumothorax. Degenerative changes are seen in the shoulder joints. IMPRESSION: No acute chest disease. Code Status & VTE Plan Code Status DNR (6) DMII (diabetes mellitus, type 2) Diabetes mellitus complication detail: with polyneuropathy Diabetes mellitus complication status: with neurologic complications Diabetes mellitus chcf insulin use: with chcf use Qualified Code(s): E11.42 - Type 2 diabetes mellitus with diabetic polyneuropathy; Z79.4 - emt intermediate (current) use of insulin
[2024-06-06 12:09] LABS: Appearance Urine Clear (Clear); Bacteria Urine Automated None Seen (None Seen); Bilirubin Urine Negative (Negative); Blood Urine Negative (Negative); Cast Urine Automated 0-2 /lpf (0-2); Color Urine Yellow; Epithelial Cell Urine Auto 0-2 /hpf (0-2); Glucose Urine UA Negative (Negative); Ketones Urine Negative (Negative); Leukocyte Esterase Urine Negative (Negative); Nitrite Urine Negative (Negative); Protein Urine Trace (Negative); Specific Gravity Urine 1.011 (1.000-1.030); Urobilinogen Urine Negative (Negative); WBC Urine Automated 0-5 /hpf (0-5)
[2024-06-06] MEDS ORDERED: ONDANSETRON 4 MG OD TAB PO PRN (12:26)
[2024-06-06] MEDS ORDERED: POLYETHYLENE (MIRALAX) 17 GM PACK PO PRN (12:26)
[2024-06-06] MEDS ORDERED: CALCIUM CARBONATE 1250MG TAB PO PRN (12:38)
[2024-06-06] MEDS ORDERED: DEXTROSE 50% 50 ML SYRINGE IV PRN ×2 (13:00→19:40)
[2024-06-06] MEDS ORDERED: GLUCOSE 10 TAB/TUBE PO PRN ×2 (13:00→19:40)
[2024-06-06] MEDS ORDERED: GLUCAGON FOR INJ 1 MG VIAL SQ PRN ×2 (13:00→19:40)
[2024-06-06] MEDS ORDERED: GLUCOSE 40% GEL 15 GM TUBE PO PRN ×2 (13:00→19:40)
[2024-06-06] MEDS ORDERED: CARBOHYDRATES FOR HYPOGLYCEMIA PO PRN ×2 (13:00→19:40)
[2024-06-06] MEDS: busPIRone 7.5 MG TAB PO SCH (13:26)
[2024-06-06] MEDS: HYDROcodone/ACETAMINOPHEN 10/325 TAB PO PRN (13:26)
[2024-06-06] MEDS: INSULIN ASPART PER UNIT CHARGE SC SCH (13:44)
[2024-06-06] MEDS: LANTUS PER UNIT CHARGE SQ SCH (13:45)
[2024-06-06] MEDS: cefTRIAXone SODIUM 2,000 MG/50 ML BAG IV SCH (14:02)
[2024-06-06] MEDS: SIMETHICONE 80 MG CHEW PO SCH (14:02)
--- NOTE | 2024-06-06 16:26 | Electrocardiogram Report ---
Test Reason : Blood Pressure : */* mmHG Vent. Rate : 84 BPM Atrial Rate : 84 BPM P-R Int : 166 ms QRS Dur : 148 ms QT Int : 430 ms P-R-T Axes : 93 258 77 degrees QTcB Int : 508 ms AV dual-paced rhythm Abnormal ECG When compared with ECG of 03-Oct-2023 12:08, Vent. rate has decreased by 6 bpm Confirmed by Palomo Chacon ([id number]) on 06/06/2024 4:25:38 PM Referred By: Confirmed By: Palomo Chacon
[2024-06-06] MEDS: ACETAMINOPHEN 500 MG TAB ONE (19:58)
[2024-06-06] MEDS: hydrALAZINE HCL 25 MG TAB PO STA (19:58)
[2024-06-06] MEDS: ACETAMINOPHEN 500 MG TAB PO SCH (19:58)
[2024-06-06] MEDS: LORazepam 1 MG TAB PO SCH (19:58)
[2024-06-06] MEDS: PANTOprazole 40 MG TAB PO SCH (20:01)
[2024-06-06 20:02] LABS: Influenza A virus by PCR Negative (Neg); Influenza B virus by PCR Negative (Neg); RSV by PCR Negative (Neg); SARS CoV2 RNA(COVID-19) Ceph NEGATIVE (Negative)
[2024-06-06] MEDS: APIXABAN 2.5 MG TAB PO SCH (20:02)
[2024-06-06] MEDS: GABAPENTIN 300 MG CAP PO SCH (20:02)
[2024-06-06] MEDS: ATORVASTATIN 10 MG TAB PO SCH (20:02)
[2024-06-06] MEDS: CEROVITE ADV FORMULA TAB PO SCH (20:02)
[2024-06-06] MEDS: QUEtiapine FUMARATE 25 MG TABLET PO SCH (20:03)
[2024-06-06] MEDS: MONTELUKAST SODIUM 10 MG TABLET PO SCH (20:03)
[2024-06-06] MEDS: VENLAFAXINE HCL XR 75 MG CAPXR PO SCH (20:05)
[2024-06-07 06:12] LABS: Basophils # (auto) 0.02 K/uL (0.00-0.20); Basophils % (auto) 0.3 %; Eosinophils # (auto) 0.23 K/uL (0.00-0.50); Eosinophils % (auto) 3.4 %; Hematocrit (blood only) 35.6 % (37.0-47.0); Hemoglobin 11.6 g/dl (12.0-16.0); Immature Granulocytes # (auto) 0.02 K/uL (0.01-0.20); Immature Granulocytes % (auto) 0.3 %; Lymphocytes # (auto) 0.36 K/uL (1.20-3.40); Lymphocytes % (auto) 5.3 %; Mean Corpuscular Hemoglobin 32.6 pg (25.0-34.0); Mean Corpuscular Hgb Conc 32.6 g/dL (32.0-36.0); Mean Platelet Volume 9.3 fL (9.4-12.4); Monocytes # (auto) 0.09 K/uL (0.11-0.59); Monocytes % (auto) 1.3 %; Neutrophils # (auto) 6.13 K/uL (1.40-6.50); Neutrophils % (auto) 89.4 %; Platelet Count 171 K/uL (130-400); RDW Coefficient of Variation 14.6 % (11.5-14.5); RDW Standard Deviation 52.7 fL (36.4-46.3); Red Blood Count 3.56 M/uL (4.20-5.40); White Blood Count 6.85 K/ul (4.8-10.8)
[2024-06-07 06:41] LABS: BUN Creatinine Ratio 13.5 (10-20); Calcium 9.3 mg/dl (8.6-10.3); Creatinine Clr Calc Pharmacy 17.1 ml/min; Phosphorus 4.1 mg/dl (2.5-4.9); Potassium 4.3 mmol/L (3.5-5.1)
[2024-06-07] MEDS ORDERED: CHOLECALCIFEROL 25 MCG (1000 UNITS) TAB PO SCH (09:00)
[2024-06-07] MEDS: LANTUS PER UNIT CHARGE SQ SCH (09:43)
[2024-06-07] MEDS: CHOLECALCIFEROL 25 MCG (1000 UNITS) TAB PO SCH (09:44)
[2024-06-07] MEDS: DOCUSATE SODIUM 100 MG CAP PO SCH (09:45)
[2024-06-07] MEDS: FOLIC ACID 1 MG TAB PO SCH (09:47)
[2024-06-07] MEDS: METOPROLOL SUCC 50MG EXT REL TAB PO SCH (09:48)
[2024-06-07] MEDS: MULTIVITAMIN TAB PO SCH (09:49)
[2024-06-07] MEDS: FUROSEMIDE 40 MG TAB PO SCH (09:49)
[2024-06-07] MEDS: GABAPENTIN 100 MG CAP PO SCH (09:49)
[2024-06-07] MEDS: VITAMIN B COMPLEX TAB PO SCH (09:52)
--- NOTE | 2024-06-07 11:58 | XRay Report ---
EXAM: Radiographs of the Lumbosacral Spine 2 Views INDICATION: Low back pain. TECHNIQUE: AP and lateral views were obtained. COMPARISON: CT lumbar spine 01/29/2024 FINDINGS: Limitations: None. Vertebrae: The bones are demineralized. There is stable moderate to severe diffuse facet arthrosis, spondylosis and uncal spurring. Stable chronic compression deformity of L2. No acute fracture noted. Stable degenerative anterolisthesis noted at multiple levels. Sacrum/coccyx: No acute change noted. Disc spaces: There is stable multilevel moderate to severe disc narrowing and foraminal stenosis. Soft tissues: No abnormality noted. No radiopaque foreign body noted. IMPRESSION: Stable chronic changes. No acute abnormality identified. ACT 112: Negative or not required by law. Electronically signed by Adela Reyes 06-07-2024 11:58 AM
[2024-06-07] MEDS: LIDOCAINE 5% 1 PATCH TD PRN (13:56)
[2024-06-07] MEDS ORDERED: SPIRONOLACTONE 25 MG TAB PO SCH (14:00)
--- NOTE | 2024-06-07 17:39 | Hospitalist Progress Note ---
Date of Service June 07, 2024 Assessment & Plan (1) MARY (acute kidney injury): Plan 89-year-old lady with PMH of PAF on Eliquis, CKD, T2DM, nonischemic cardiomyopathy [EF of 20 to 25% subsequently improved to most recent value of 60 to 65%] status post biventricular ICD, ANN intolerant to CPAP, rheumatoid arthritis, lumbar degenerative disease, CKD and chronic hypoxic respiratory failure requiring 2 L of oxygen was sent in from [facility] for generalized pain and elevated blood pressure. She is being managed for the following: Hypertensive urgency: BP was 183/103 on presentation. Got Metoprolol succinate in ER. BP has been stable thereafter. Continue with home antihypertensive and as needed blood pressure medication. Lasix and Aldactone on hold due to acute on chronic kidney disease. Acute worsening of stage 4 chronic kidney disease: Admitting creatinine of 2.55, baseline creatinine around 1.7-1.9. Creatinine elevated likely in the setting of recent Bactrim use, Bactrim has been stopped. Creatinine uptrending today, holding Lasix and Aldactone, will not utilize IV fluid yet given slightly hypervolemic status and high blood pressure. Nephrology consult, await recommendation. Labs in a.m., avoid nephrotoxic's. UTI (urinary tract infection): Metabolic encephalopathy: patient appears confused in the setting of recent Bactrim use. Hold Bactrim. Continue to monitor. UCx from 05/29/24 grew Klebsiella pneumonia Per [facility] records, she has been on Bactrim since Patient still reports urinary freq, Admitting urine culture pending. Stop bactrim as above and continue IV ceftriaxone 06/06 for now Other chronic medical conditions: Continue with/resume home meds as and when able. Chronic hypoxic respiratory failure, on home oxygen therapy: Continue home oxygen. Stable. Atrial fibrillation: Paroxysmal A-fib, rate controlled, continue home metoprolol And Eliquis. T2DM: A1c of 6.4 in 10/05. Continue sliding scale insulin. Rheumatoid arthritis: Pain control. Continue weekly methotrexate. She has chronic generalized body pains especially in hands, feet and low back due to her arthritis. Anxiety and depression: Continue home Ativan and Seroquel Nonischemic cardiomyopathy: Continue home Toprol-XL. Lasix and Aldactone on hold due to MARY over CKD. See above. Follows [facility] cardiology. Has chronic leg edema. DVT prophylaxis: Patient on Eliquis. CODE STATUS: DNR/DNI PT/OT, CM to assist with DC planning. Admission and Anticipated Discharge Date Admission Date: June 06, 2024 Subjective Patient was seen and examined at bedside. Patient was lying in bed, on 3 L oxygen via nasal cannula, reporting pain all over her body. Patient had vomited times 1 in the morning, last bowel movement was 1 to 2 days ago. Patient appears confused and ROS is not able in detail. Patient was again seen at bedside later in the morning when patient's son was at bedside. Patient's son states that patient is confused and reports she has chronic generalized body pain. Otherwise patient appears stable. Due to vomiting in the morning, her diet was downgraded to clear liquid, will get chest x-ray to rule out aspiration. Since her MARY over CKD is not improving, we will hold her Lasix and Aldactone and consult her nephrology. Will not use IVF yet as pt has mild hypervolemic on exam w/ trace to 1+ edema. Patient's son and patient's KINGSTON were updated, they voiced understanding and were agreeable to plan of care. Physical Exam Physical Exam: Constitutional: + well hydrated a nd + obese, appear s confused Eyes: PERRL, conjunctiva e normal, anicteri c sclerae ENMT: external ear and n ose normal, oropha rynx normal Respiratory: normal respiratory effort; no respir atory distress Au scultation: lungs clear to auscultat ion bilaterally Cardiovascular: RRR S1 S2 Gastrointestinal ( Abdomen): normal bowel sound s, soft, nontender , no hepatosplenom egaly Musculoskeletal: Bilateral pedal e alfie trace to 1+ Neurologic: PERRL, EOMI, accom modation nl, no fa ce palsy, no dysar thria Psychiatric: A+Ox3, euthymic af fect Results & Data Results & Data Vital Signs (Past 12 Hours) Vital Signs Temp Pulse Pulse Resp BP Pulse Ox O2 Del Method 06/07/24 16:00 36.6 C 89 18 139/70 96 Nasal Cannula 06/07/24 14:39 82 06/07/24 13:24 36.5 C 88 17 100/65 97 Nasal Cannula 06/07/24 11:30 36.9 C 104 H 20 135/65 93 Nasal Cannula 06/07/24 07:53 36.7 C 83 18 146/77 H 93 Nasal Cannula 06/07/24 07:46 Nasal Cannula O2 Flow Rate 06/07/24 16:00 3 06/07/24 14:39 06/07/24 13:24 3 06/07/24 11:30 2 06/07/24 07:53 3.0 06/07/24 07:46 2
--- NOTE | 2024-06-07 17:52 | XRay Report ---
EXAM: Radiograph of the Chest 1 View INDICATION: Evaluate for aspiration. TECHNIQUE: Frontal view of the chest. COMPARISON: 01/28/2024 and 10/03/2023 FINDINGS: Lungs and pleural spaces: Shallow inspiration. There is stable chronic interstitial thickening. There is no change in slight increased density of the left base with loss of the left diaphragmatic shadow. Heart: Stable enlargement and numerous pacing wires unchanged. Mediastinum: Normal contour. Bones/joints: Degenerative changes noted throughout the spine. No acute osseous abnormality seen. Soft tissues: No abnormality noted. No radiopaque foreign body noted. Upper abdomen: No abnormality noted. IMPRESSION: Stable increased density in the left lung base which may reflect atelectasis and pleural effusion. Consider aspiration and mucous plugging. Underlying chronic interstitial changes present. ACT 112: Negative or not required by law. Electronically signed by Adela Reyes 06-07-2024 5:51 PM
[2024-06-07] MEDS: ACETAMINOPHEN 1,000 MG/100 ML VIAL IV PRN (22:28)
[2024-06-08 08:09] LABS: BUN Creatinine Ratio 13.3 (10-20); Calcium 9.2 mg/dl (8.6-10.3); Creatinine Clr Calc Pharmacy 12.2 ml/min; Hematocrit (blood only) 36.8 % (37.0-47.0); Magnesium 1.9 mg/dl (1.7-2.4); Mean Corpuscular Hemoglobin 32.6 pg (25.0-34.0); Mean Corpuscular Hgb Conc 32.6 g/dL (32.0-36.0); Mean Platelet Volume 10.1 fL (9.4-12.4); Phosphorus 3.8 mg/dl (2.5-4.9); Platelet Count 107 K/uL (130-400); Potassium 5.4 mmol/L (3.5-5.1); RDW Coefficient of Variation 15.1 % (11.5-14.5); RDW Standard Deviation 53.5 fL (36.4-46.3); Red Blood Count 3.68 M/uL (4.20-5.40); White Blood Count 24.27 K/ul (4.8-10.8)
[2024-06-08] MEDS: SODIUM CHLORIDE 0.9% 1,000 ML IV SCH (09:43)
--- NOTE | 2024-06-08 11:02 | Electrocardiogram Report ---
Test Reason : Blood Pressure : */* mmHG Vent. Rate : 99 BPM Atrial Rate : 99 BPM P-R Int : 168 ms QRS Dur : 174 ms QT Int : 398 ms P-R-T Axes : 86 -49 95 degrees QTcB Int : 510 ms Atrial-sensed ventricular-paced rhythm Biventricular pacemaker detected Abnormal ECG When compared with ECG of 06-Jun-2024 07:56, Vent. rate has increased by 15 bpm Confirmed by Palomo Chacon ([id number]) on 06/08/2024 11:02:17 AM Referred By: [facility] Confirmed By: Palomo Chacon
[2024-06-08] MEDS ORDERED: PIPERACILLIN/TAZOBACTAM 4.5 GM/100 ML BAG IV SCH (11:30)
--- NOTE | 2024-06-08 11:55 | Nephrology Consultation ---
Date of Consultation June 08, 2024 Assessment & Plan (1) MARY (acute kidney injury): (2) HTN (hypertension): (3) UTI (urinary tract infection): (4) Weakness: (5) Hyperkalemia: Plan 89-year-old female with stage IIIb/IV CKD baseline creatinine 1.8-2.0 mg/dl secondary to microvascular disease with history of hypertension, diabetes versus cardiorenal syndrome with nonischemic cardiomyopathy. Urinalysis with no proteinuria. Prior imaging showed stable bilateral simple cyst. Admitted with hypertensive urgency and generalized pain and weakness, blood pressure improved significantly. Recently was on Bactrim for UTI which was stopped. On admission lab was notable for MARY, creatinine was 2.6 which worsened to 3.6 this morning associated with hyperkalemia. She was recently on Bactrim for UTI which has now stopped. Repeat urinalysis in hospital was negative for proteinuria bacteriuria but CBC this morning was notable for significant leukocytosis and chest x-ray concerning for left lower lobe consolidation versus aspiration. Blood pressure rapidly improved and down to high 90s to 120s. Volume status seems reasonable, off of spironolactone and Lasix. MARY could be secondary to Bactrim however also could be secondary to some impaired autoregulation with rap id drop in blood pressure. Postrenal obstruction seems less likely. -- Encouraged increased p.o. intake, recommend stopping the IV fluid after the current bag -- Repeat renal panel in a.m., continue to monitor volume status. If any further worsening of kidney function, will get renal ultrasound to exclude possibility for postrenal obstruction although since less likely. -- Considering significant leukocytosis and concern for left lower lobe pneumonia, may need to resume broad-spectrum antibiotic. -- Continue on low potassium diet, continue to hold spironolactone and Lasix for now Thank you for allowing me to participate in your patient's care. It was a pleasure to see Cary. History of Present Illness Reason for Consultation: MARY, hyperkalemia Attending Physician: Naun Seals MD History of Present Illness Ms. Cary Taylor is a 89 year old F with PMH significant for stage IIIb/IV CKD, Paroxysmal Afib, DM2, Nonischemic cardiomyopathy s/p biventricular ICD, ANN admitted to the hospital with hypertensive urgency and noted to have MARY and hyperkalemia. Nephrology consult was requested for management of MARY and hyperkalemia with advanced CKD. EMR records were reviewed in detail during patient's visit. Her son was at bedside and [id number] Maggi was attending via phone call. Cary was admitted on 06/06/24 after she was noted to have hypertensive urgency with systolic blood pressure 180s when checked by the nurse at the detention. Blood pressure has since improved significantly in fact her blood pressure was staying over last 24 hours somewhere from high 90s to 120s. She was recently found to have a UTI as an outpatient on lab on 05/29/2024, culture was growing Klebsiella and she was on Bactrim. On admission she was noted to have MARY, creatinine was 2.6 which stayed stable yesterday but this morning labs showed MARY with creatinine 3.6 and potassium 5.4. Bactrim was stopped and she was briefly started on ceftriaxone which was stopped as well. Repeat urinalysis was negative for proteinuria, pyuria or bacteriuria, noted to have microscopic hematuria with 6-10 RBC/HPF. Chest x-ray showed left lung base increased density possibly due to atelectasis versus aspiration. WBC was 24, platelet dropped to 107, hemoglobin was stable at 12.0. Prior CT abdomen pelvis in September 2023 showed bilateral renal cyst which was stable and similar to prior imaging. She was on spironolactone and lisinopril which was stopped this morning. She was started on IV fluid. Intake and output unmeasured as she has incontinence but according to the report she was having wet diapers and her weight was lower than admission weight. Did not have any shortness of breath, she does use 2 L nasal cannula oxygen for chronic hypoxic respiratory failure and obstructive sleep apnea. Has stage IIIb/IV CKD, baseline creatinine has been around 1.8-2.0 mg/dl with history of nonischemic cardiomyopathy, hypertension, diabetes. No significant proteinuria. Nonischemic cardiomyopathy (EF 20-25% subsequently improved to most recent value of 60-65%) s/p biventricular ICD, ANN intolerant to CPAP, rheumatoid arthritis, chronic hypoxic respiratory failure requiring 2L of O2 , lumbar degenerative disease. She lives in [facility]. She looked otherwise comfortable and denied any specific symptoms this morning other than pain all over which has been chronic. Allergies Allergy/AdvReac Type Severity Reaction Status Date / Time amiodarone AdvReac Intermediate gi distress Verified 12/20/24 13:43 aspirin AdvReac Intermediate history of Verified 06/02/24 13:43 ulcers nortriptyline AdvReac Unknown DOESN'T Verified 06/02/24 13:43 REMEMBER Home Medications Medication Instructions Recorded Confirmed Type apixaban 2.5 mg tablet (Eliquis) 2.5 mg PO BID 05/30/23 06/06/24 History atorvastatin 10 mg tablet 10 mg PO HS 05/30/23 06/06/24 History benzonatate 200 mg capsule 200 mg PO TID PRN Cough 05/30/23 06/06/24 History cholecalciferol (vitamin D3) 50 2,000 unit PO DAILY 05/30/23 06/06/24 History mcg (2,000 unit) capsule (Vitamin D3) folic acid 1 mg tablet 2 mg PO DAILY 05/30/23 06/06/24 History loperamide 2 mg tablet 2 mg PO DIRECTED PRN Diarrhea 05/30/23 06/06/24 History methotrexate sodium 2.5 mg tablet 5 mg PO .Wednesday05/30/23 06/06/24 History metoprolol succinate 200 mg 200 mg PO DAILY 05/30/23 06/06/24 History tablet,extended release 24 hr montelukast 10 mg tablet 10 mg PO QPM 05/30/23 06/06/24 History pantoprazole 40 mg tablet,delayed 40 mg PO BID 05/30/23 06/06/24 History release spironolactone 25 mg tablet 25 mg PO 3XWK 05/30/23 06/06/24 History vitamin B complex 1 tab PO DAILY 05/30/23 06/06/24 History lidocaine 4 % topical patch 1 patch topical DAILY PRN Other 08/26/23 06/06/24 History (AsperFlex (lidocaine)) furosemide 40 mg tablet (Lasix) 40 mg PO DAILY 09/13/23 06/06/24 History calcium carbonate (Antacid Ext Str 300 mg PO TID PRN stomach acid 10/27/23 06/06/24 History (calcium carb)) quetiapine 25 mg tablet 25 mg PO HS 10/27/23 06/06/24 History gabapentin 300 mg capsule 300 mg PO HS 12/15/23 06/06/24 History insulin glargine 100 unit/mL (3 25 unit subcut QAM 12/15/23 06/06/24 History mL) subcutaneous pen (Lantus Solostar U-100 Insulin) acetaminophen 500 mg tablet 1,000 mg PO BID 03/09/24 06/06/24 History buspirone 7.5 mg tablet 7.5 mg PO TID 03/09/24 06/06/24 History hydrocodone 10 mg-acetaminophen 1 tab PO TID Moderate Pain (Scale 03/09/24 06/06/24 History 300 mg tablet Score 5-6) lorazepam 1 mg tablet 1 mg PO BID 03/09/24 06/06/24 History lorazepam 1 mg tablet 1 mg PO DAILY PRN Anxiety 03/09/24 06/06/24 History multivitamin (Daily-Kerry tablet) 1 tab PO DAILY 03/09/24 06/06/24 History venlafaxine 75 mg capsule,extended 75 mg PO HS 03/09/24 06/06/24 History release 24 hr vit C 250 mg-vit E 90 mg-zinc 40 1 tab PO BID 03/09/24 06/06/24 History mg-copper 1 bj-vjzayc-pxalex capsule (PreserVision AREDS-2) docusate sodium 100 mg capsule 100 mg PO DAILY 04/05/24 06/06/24 History (Colace) ondansetron 4 mg disintegrating 4 mg PO .daily prn #30 tabs 04/05/24 06/06/24 Rx tablet polyethylene glycol 3350 17 gram 17 g PO DAILY PRN Constipation #30 04/05/24 06/06/24 Rx oral powder packet (Miralax) ea simethicone 180 mg capsule 180 mg PO TID 30 days #90 caps 04/05/24 06/06/24 Rx (Phazyme) gabapentin 100 mg capsule 100 mg PO DAILY 04/06/24 06/06/24 History sulfamethoxazole 800 1 tab PO BID 06/06/24 06/06/24 History mg-trimethoprim 160 mg tablet (Bactrim DS) Patient History Medical History Chronic diarrhea Degenerative disc disease Diabetes mellitus, type 2 Hx of squamous cell carcinoma CARRILLO (dyspnea on exertion) History of basal cell carcinoma GERD without esophagitis PAC (premature atrial contraction) Third degree AV block Surgical History History of anesthesia reaction CONFUSION WITH GALLBLADDER REMOVAL, AWARENESS DURING COLONOSCOPY History of esophagogastroduodenoscopy (EGD) History of colonoscopy History of tooth extraction History of cataract surgery RT/LEFT S/P tubal ligation S/P total knee arthroplasty RT/LEFT S/P cholecystectomy Family History Father Heart disease Mother Diabetes Heart disease Myocardial infarction Family history of diabetes mellitus Grandfather (Maternal) Prostate cancer Family history of diabetes mellitus Other Family history non-contributory No family history of adverse response to anesthesia Denies family history of Ovarian cancer Breast cancer Colorectal cancer Social History Smoking Status: Never smoker Second Hand Exposure: No; Do You Dip or Chew Tobacco: Yes; Hx Alcohol Use: No Hx Substance Use: No Preferred Language: Luxembourgish Communication Ability: Effective Communication Ability Comment: pt does have earring aids Visual Impairment: No Limitations Hearing Ability: Use of Hearing Aid [place] 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 Required: No Beliefs That Will Affect Care: None marital status: Single Current Living Situation: Personal Care Facility Current Living Situation Comment: [facility] current occupational status: retired Other Information That Helps Us Care for You: No Feels Safe at Home: Yes Safety Concerns: Feels Safe At This Time Childhood Exposure to Second-Hand Smoke: Yes Diet: regular Dental Care, Regularly: Yes Physical Activity Frequency: Does not Exercise Seatbelt Use: always Sunscreen Use: Yes Assistive Devices: Walker and Wheelchair Review of Systems Review of Systems: Detailed review of system was done and pertinent positives and negatives are mentioned above. Physical Exam Constitutional: WD/WN, vitals as above no acute distress Eyes: + anicteric sclerae Neck: normal visual inspection Respiratory: no respiratory distress Auscultation: + diminished lung sounds and + crackles (left base); no wheezes Cardiovascular: Rate/Rhythm: regular rate and regular rhythm Heart Sounds: normal S1 and normal S2 Extremities: + edema (trace b/l LE edema) Gastrointestinal (Abdomen): Inspection/Auscultation: abdomen normal to inspection Percussion/Palpation: abdomen soft; abdomen nontender Musculoskeletal: Extremities: extremities normal to inspection Neurologic: no focal motor deficits Psychiatric: Orientation: alert and oriented x 3 Affect: euthymic affect Results & Data Vital Signs (Past 12 Hours) Vital Signs Temp Pulse Resp BP BP Pulse Ox O2 Del Method 06/08/24 10:48 37.2 C 78 20 91/54 L 96 Room Air 06/08/24 07:32 36.8 C 80 17 120/66 95 Nasal Cannula 06/08/24 05:07 37.3 C 06/08/24 03:37 37.1 C 78 18 140/70 98 Nasal Cannula O2 Flow Rate 06/08/24 10:48 06/08/24 07:32 4 06/08/24 05:07 06/08/24 03:37 3.0 PG Care Time/CCT Total # of Minutes Spent Total Time Spent with Patient: Total time spent is greater than 50% in coordination of care (as documented) at patient's floor/unit and/or counseling patient: Coding Level of Care Code 79715 INT INP/OBS CARE 375MIN Diagnoses MARY (acute kidney injury) N17.9 HTN (hypertension) I10 Hypertension type: unspecified UTI (urinary tract infection) N39.0 Weakness R53.1 Hyperkalemia E87.5 (2) HTN (hypertension) Hypertension type: unspecified Qualified Code(s): I10 - Essential (primary) hypertension
[2024-06-08] MEDS: ADVANCED PROBIOTIC 625 MG CAPSULE PO SCH (14:01)
[2024-06-08] MEDS: 4.5GM X1 IV STA (15:00)
--- NOTE | 2024-06-08 16:23 | Hospitalist Progress Note ---
Date of Service June 08, 2024 Assessment & Plan (1) MARY (acute kidney injury): Plan 89-year-old lady with PMH of PAF on Eliquis, CKD, T2DM, nonischemic cardiomyopathy [EF of 20 to 25% subsequently improved to most recent value of 60 to 65%] status post biventricular ICD, ANN intolerant to CPAP, rheumatoid arthritis, lumbar degenerative disease, CKD and chronic hypoxic respiratory failure requiring 2 L of oxygen was sent in from [place] for generalized pain and elevated blood pressure. She is being managed for the following: Hypertensive urgency: BP was 183/103 on presentation. Got Metoprolol succinate in ER. BP has been stable thereafter. Continue with home antihypertensive and as needed blood pressure medication. Lasix and Aldactone on hold due to acute on chronic kidney disease. Acute worsening of stage 4 chronic kidney disease: Admitting creatinine of 2.55, baseline creatinine around 1.7-1.9. Creatinine elevated likely in the setting of recent Bactrim use, Bactrim has been stopped. Creatinine uptrending today, Lasix and Aldactone on hold, gentle ivf x 1 bag, Nephrology onboard, appreciate recommendation. Labs in a.m., avoid nephrotoxic's. UTI (urinary tract infection): Metabolic encephalopathy: patient appears confused in the setting of recent Bactrim use. Hold Bactrim. Continue to monitor. UCx from 05/29/24 grew Klebsiella pneumonia Per [facility] records, she has been on Bactrim since Patient still reports urinary freq, Admitting urine culture no growth Stopped bactrim as above and continue IV ceftriaxone 06/06 for now --> to diff atb, see below. Aspiration pneumonia: Patient vomited in a.m. of 06/07, follow-up CXR with left lung base opacity. WBC peaked at 24.2K on 06/08. Will DC Rocephin and initiate Zosyn 06/08. Continue to monitor vitals and clinical status. Other chronic medical conditions: Continue with/resume home meds as and when able. Chronic hypoxic respiratory failure, on home oxygen therapy: Continue home oxygen. Stable. Atrial fibrillation: Paroxysmal A-fib, rate controlled, continue home metoprolol And Eliquis. T2DM: A1c of 6.4 in 10/05. Continue sliding scale insulin. Rheumatoid arthritis: Pain control. Continue weekly methotrexate. She has chronic generalized body pains especially in hands, feet and low back due to her arthritis. Anxiety and depression: Continue home Ativan and Seroquel Nonischemic cardiomyopathy: Continue home Toprol-XL. Lasix and Aldactone on hold due to MARY over CKD. See above. Follows [facility] cardiology. Has chronic leg edema. DVT prophylaxis: Patient on Eliquis. CODE STATUS: DNR/DNI PT/OT, CM to assist with DC planning. Admission and Anticipated Discharge Date Admission Date: June 06, 2024 Subjective Patient was seen and examined at bedside. Patient was lying in bed, on 3 L oxygen via nasal cannula, Denies increased baseline pain today. Patient overall feels better today, patient's son at bedside who was also updated on plan of care. Patient less confused today, denies sore throat and belly pain. Per RN, patient is eating okay. Physical Exam Physical Exam: Constitutional: + well hydrated a nd + obese, appear s confused Eyes: PERRL, conjunctiva e normal, anicteri c sclerae ENMT: external ear and n ose normal, oropha rynx normal Respiratory: normal respiratory effort; no respir atory distress Au scultation: lll cr ackles Cardiovascular: RRR S1 S2 Gastrointestinal ( Abdomen): normal bowel sound s, soft, nontender , no hepatosplenom egaly Musculoskeletal: Bilateral pedal e alfie trace to 1+ Neurologic: PERRL, EOMI, accom modation nl, no fa ce palsy, no dysar thria Psychiatric: A+Ox3, euthymic af fect Results & Data Results & Data Vital Signs (Past 12 Hours) Vital Signs Temp Pulse Pulse Resp BP BP Pulse Ox 06/08/24 14:49 80 06/08/24 14:10 79 18 112/72 98 06/08/24 10:48 37.2 C 78 20 91/54 L 96 06/08/24 08:15 06/08/24 07:32 36.8 C 80 17 120/66 95 06/08/24 07:00 83 06/08/24 05:07 37.3 C O2 Del Method O2 Flow Rate 06/08/24 14:49 06/08/24 14:10 Nasal Cannula 3 06/08/24 10:48 Room Air 06/08/24 08:15 Nasal Cannula 4 06/08/24 07:32 Nasal Cannula 4 06/08/24 07:00 06/08/24 05:07
[2024-06-08] MEDS: 4.5GM EXT INFUSION IV SCH (23:38)
[2024-06-09 08:18] LABS: Albumin Level 3.2 gm/dl (3.4-5.0); BUN Creatinine Ratio 14.1 (10-20); Calcium 8.7 mg/dl (8.6-10.3); Creatinine Clr Calc Pharmacy 10.8 ml/min; Phosphorus 4.2 mg/dl (2.5-4.9); Potassium 5.1 mmol/L (3.5-5.1)
[2024-06-09 08:37] LABS: Hematocrit (blood only) 34.4 % (37.0-47.0); Hemoglobin 11.1 g/dl (12.0-16.0); Mean Corpuscular Hemoglobin 32.4 pg (25.0-34.0); Mean Corpuscular Hgb Conc 32.3 g/dL (32.0-36.0); Mean Corpuscular Volume 100.3 fL (80.0-100.0); Mean Platelet Volume 10.1 fL (9.4-12.4); Platelet Count 63 K/uL (130-400); Platelet Estimate Decreased (Normal); RDW Coefficient of Variation 15.4 % (11.5-14.5); RDW Standard Deviation 54.9 fL (36.4-46.3); Red Blood Count 3.43 M/uL (4.20-5.40); White Blood Count 19.77 K/ul (4.8-10.8)
--- NOTE | 2024-06-09 11:33 | Nephrology Progress Note ---
Date of Service June 09, 2024 Assessment & Plan (1) MARY (acute kidney injury): (2) HTN (hypertension): (3) UTI (urinary tract infection): (4) Weakness: (5) Hyperkalemia: Plan 89-year-old female with stage IIIb/IV CKD baseline creatinine 1.8-2.0 mg/dl secondary to microvascular disease with history of hypertension, diabetes versus cardiorenal syndrome with nonischemic cardiomyopathy. Urinalysis with no proteinuria. Prior imaging showed stable bilateral simple cyst. Admitted with hypertensive urgency and generalized pain and weakness, blood pressure improved significantly. Recently was on Bactrim for UTI which was stopped. On admission lab was notable for MARY, creatinine was 2.6 which worsened to 3.6 this morning associated with hyperkalemia. She was recently on Bactrim for UTI which has now stopped. Repeat urinalysis in hospital was negative for proteinuria bacteriuria but CBC this morning was notable for significant leukocytosis and chest x-ray concerning for left lower lobe consolidation versus aspiration. Blood pressure rapidly improved and down to high 90s to 120s. Volume status seems reasonable, off of spironolactone and Lasix. MARY could be secondary to Bactrim and possibly hemodynamically mediated with some impaired autoregulation with rapid drop in blood pressure. --Renal ultrasound considering progressive worsening of kidney function and recommend Nicole catheter placement for accurate intake and output. --encouraged increased p.o. intake. --Continue on low potassium diet, continue to hold spironolactone and Lasix for now Admission and Anticipated Discharge Date Admission Date: June 06, 2024 Simon Townsend all over the place seen and evaluated this morning her son at bedside and [id number] attending over telephone. She looked comfortable, was lying in bed, reports decent appetite and had breakfast this morning. Denied any shortness of breath or chest pain. Remained incontinent of urine, exact urine output unknown. Blood pressure well-controlled. Her kidney function continues to worsen, cr up to 4.1 this morning. Review of Systems Review of Systems: Detailed review of system was done and pertinent positives and negatives are mentioned above. Physical Exam Constitutional: WD/WN, vitals as above no acute distress Eyes: + anicteric sclerae Respiratory: no respiratory distress Auscultation: + diminished lung sounds and + crackles (left base); no wheezes Cardiovascular: Rate/Rhythm: regular rate and regular rhythm Heart Sounds: normal S1 and normal S2 Extremities: + edema (trace b/l LE edema) Gastrointestinal (Abdomen): Inspection/Auscultation: abdomen normal to inspection Percussion/Palpation: abdomen soft; abdomen nontender Musculoskeletal: Extremities: extremities normal to inspection Neurologic: no focal motor deficits Psychiatric: Orientation: alert and oriented x 3 Affect: euthymic affect Results & Data Vital Signs (Past 12 Hours) Vital Signs Temp Pulse Pulse Resp BP Pulse Ox O2 Del Method 06/09/24 08:30 Nasal Cannula 06/09/24 07:30 36.8 C 78 18 118/70 95 Nasal Cannula 06/09/24 07:17 82 06/09/24 02:47 36.5 C 81 19 110/76 93 Nasal Cannula O2 Flow Rate 06/09/24 08:30 3 06/09/24 07:30 3 06/09/24 07:17 06/09/24 02:47 3.0 PG Care Time/CCT Total # of Minutes Spent Total Time Spent with Patient: Total time spent is greater than 50% in coordination of care (as documented) at patient's floor/unit and/or counseling patient: Coding Level of Care Code 95973 SUB INP/OBS CARE 2/35MIN Diagnoses MARY (acute kidney injury) N17.9 HTN (hypertension) I10 Hypertension type: unspecified UTI (urinary tract infection) N39.0 Weakness R53.1 Hyperkalemia E87.5 (2) HTN (hypertension) Hypertension type: unspecified Qualified Code(s): I10 - Essential (primary) hypertension
--- NOTE | 2024-06-09 15:58 | Ultrasound Report ---
US renal/blad retro comp CLINICAL HISTORY: acute kidney injury TECHNIQUE: Multiple sonographic real-time images of the kidneys and bladder were obtained. COMPARISON: Comparison is made to CT abdomen pelvis 10/03/2023 FINDINGS: The right kidney measures 11.5 cm in length, and the left kidney measures 10.7 cm in length. The right kidney is normal in size, contour, cortical thickness, and echogenicity. Pelviectasis is se en without hydronephrosis. Multiple cysts noted, the largest measuring 2.8 x 2.2 x 2.9 cm. The left kidney is normal in size, contour, cortical thickness and echogenicity. No hydronephrosis i s identified. Multiple cysts noted, the largest measuring 4.8 x 3.8 x 2.9. The bladder is partially distended. No large intraluminal mass is seen. IMPRESSION: 1. Multiple simple appearing renal cysts are seen. No suspicious renal lesions. 2. Right pelviectasis without hydronephrosis. ACT 112: Negative or not required by law. Electronically signed by: Yon Quispe M.D. 06/09/2024 3:56 PM
--- NOTE | 2024-06-09 16:22 | Hospitalist Progress Note ---
Date of Service June 09, 2024 Assessment & Plan (1) MARY (acute kidney injury): Plan 89-year-old lady with PMH of PAF on Eliquis, CKD, T2DM, nonischemic cardiomyopathy [EF of 20 to 25% subsequently improved to most recent value of 60 to 65%] status post biventricular ICD, ANN intolerant to CPAP, rheumatoid arthritis, lumbar degenerative disease, CKD and chronic hypoxic respiratory failure requiring 2 L of oxygen was sent in from [place] for generalized pain and elevated blood pressure. She is being managed for the following: Hypertensive urgency: BP was 183/103 on presentation. Got Metoprolol succinate in ER. BP has been stable thereafter. Continue with home antihypertensive and as needed blood pressure medication. Lasix and Aldactone on hold due to acute on chronic kidney disease. Acute worsening of stage 4 chronic kidney disease: Admitting creatinine of 2.55, baseline creatinine around 1.7-1.9. Creatinine elevated likely in the setting of recent Bactrim use, Bactrim has been stopped. Creatinine uptrending 4.1, Lasix and Aldactone on hold, s/p gentle iVF, encourage PO intake. US renal w/ no obstruction. Nephrology onboard, appreciate recommendation. Labs in a.m., avoid nephrotoxic's. UTI (urinary tract infection): Metabolic encephalopathy: patient appears confused in the setting of recent Bactrim use. Hold Bactrim. Continue to monitor. UCx from 05/29/24 grew Klebsiella pneumonia Per [facility] records, she has been on Bactrim since Patient still reports urinary freq, Admitting urine culture no growth Stopped bactrim as above and continue IV ceftriaxone 06/06 for now --> to diff atb, see below. Aspiration pneumonia: Patient vomited in a.m. of 06/07, follow-up CXR with left lung base opacity. WBC peaked at 24.2K on 06/08. DC'd Rocephin and initiated Zosyn 06/08. Continue to monitor vitals and clinical status. Afebrile, wbc trending down. Other chronic medical conditions: Continue with/resume home meds as and when able. Chronic hypoxic respiratory failure, on home oxygen therapy: Continue home oxygen. Stable. Atrial fibrillation: Paroxysmal A-fib, rate controlled, continue home metoprolol And Eliquis. T2DM: A1c of 6.4 in 10/05. Continue sliding scale insulin. Rheumatoid arthritis: Pain control. Continue weekly methotrexate. She has chronic generalized body pains especially in hands, feet and low back due to her arthritis. Anxiety and depression: Continue home Ativan and Seroquel Nonischemic cardiomyopathy: Continue home Toprol-XL. Lasix and Aldactone on hold due to MARY over CKD. See above. Follows [facility] cardiology. Has chronic leg edema. DVT prophylaxis: Patient on Eliquis. CODE STATUS: DNR/DNI PT/OT, CM to assist with DC planning. Admission and Anticipated Discharge Date Admission Date: June 06, 2024 Subjective Patient was seen and examined at bedside. Patient was lying in bed, on 3 L oxygen via nasal cannula, Denies increased baseline pain today. Is oriented x 3 today. Patient overall feels better, patient's son at bedside who was also updated on plan of care. Patient denies sore throat and belly pain. Per RN, patient is eating okay. Physical Exam Physical Exam: Constitutional: + well hydrated a nd + obese, appear s ill/sick, is mookie ented x 3 today. Eyes: PERRL, conjunctiva e normal, anicteri c sclerae ENMT: external ear and n ose normal, oropha rynx normal Respiratory: normal respiratory effort; no respir atory distress Au scultation: lll cr ackles Cardiovascular: RRR S1 S2 Gastrointestinal ( Abdomen): normal bowel sound s, soft, nontender , no hepatosplenom egaly Musculoskeletal: Bilateral pedal e alfie trace to 1+ Neurologic: PERRL, EOMI, accom modation nl, no fa ce palsy, no dysar thria Psychiatric: A+Ox3, euthymic af fect Results & Data Results & Data Vital Signs (Past 12 Hours) Vital Signs Temp Pulse Pulse Resp BP Pulse Ox O2 Del Method 06/09/24 16:07 36.4 C L 84 18 107/72 99 Nasal Cannula 06/09/24 13:00 89 06/09/24 12:18 36.5 C 80 20 116/72 99 Nasal Cannula 06/09/24 08:30 Nasal Cannula 06/09/24 07:30 36.8 C 78 18 118/70 95 Nasal Cannula 06/09/24 07:17 82 O2 Flow Rate 06/09/24 16:07 2 06/09/24 13:00 06/09/24 12:18 3 06/09/24 08:30 3 06/09/24 07:30 3 06/09/24 07:17
[2024-06-10 09:30] LABS: Albumin Level 3.1 gm/dl (3.4-5.0); BUN Creatinine Ratio 15.5 (10-20); Creatinine Clr Calc Pharmacy 12.7 ml/min; Phosphorus 2.9 mg/dl (2.5-4.9); Potassium 4.6 mmol/L (3.5-5.1)
[2024-06-10 09:31] LABS: Hematocrit (blood only) 34.3 % (37.0-47.0); Hemoglobin 11.3 g/dl (12.0-16.0); Mean Corpuscular Hemoglobin 32.2 pg (25.0-34.0); Mean Corpuscular Hgb Conc 32.9 g/dL (32.0-36.0); Mean Corpuscular Volume 97.7 fL (80.0-100.0); Mean Platelet Volume 11.2 fL (9.4-12.4); Platelet Count 76 K/uL (130-400); RDW Standard Deviation 52.8 fL (36.4-46.3); Red Blood Count 3.51 M/uL (4.20-5.40); White Blood Count 17.43 K/ul (4.8-10.8)
--- NOTE | 2024-06-10 11:20 | Nephrology Progress Note ---
Date of Service June 10, 2024 Assessment & Plan (1) MARY (acute kidney injury): (2) HTN (hypertension): (3) UTI (urinary tract infection): (4) Weakness: (5) Hyperkalemia: Plan 89-year-old female with stage IIIb/IV CKD baseline creatinine 1.8-2.0 mg/dl secondary to microvascular disease with history of hypertension, diabetes versus cardiorenal syndrome with nonischemic cardiomyopathy. Urinalysis with no proteinuria. Prior imaging showed stable bilateral simple cyst. Admitted with hypertensive urgency and generalized pain and weakness, blood pressure improved significantly. Recently was on Bactrim for UTI which was stopped. On admission lab was notable for MARY, creatinine was 2.6 which worsened to 3.6 this morning associated with hyperkalemia. She was recently on Bactrim for UTI which has now stopped. Repeat urinalysis in hospital was negative for proteinuria bacteriuria but CBC this morning was notable for significant leukocytosis and chest x-ray concerning for left lower lobe consolidation versus aspiration. Renal ultrasound with simple cyst and mild right-sided pelvicaliectasis without kenny hydronephrosis. Blood pressure rapidly improved and has been stable. Volume status seems reasonable, off of spironolactone and Lasix, net negative. MARY could be secondary to Bactrim and possibly hemodynamically mediated with some impaired autoregulation with rapid drop in blood pressure. Creatinine may have peaked and now started to improve, down to 3.5 this morning. Volume status acceptable. Electrolyte acceptable. --encouraged increased p.o. intake and aim to keep net even. --Continue to hold spironolactone and Lasix for now --Repeat renal panel in AM. Admission and Anticipated Discharge Date Admission Date: June 06, 2024 Simon Townsend was seen and evaluated with her family at bedside. Overall doing better, seems comfortable. Has been up out of bed to the chair. Blood pressure stable. Decent urine output, net negative more than 1 L. Slight improvement in kidney function noted, creatinine down to 3.5 mg/dl, electrolyte acceptable. Review of Systems Review of Systems: Detailed review of system was done and pertinent positives and negatives are mentioned above. Physical Exam Constitutional: WD/WN, vitals as above no acute distress Eyes: + anicteric sclerae Respiratory: no respiratory distress Auscultation: + diminished lung sounds and + crackles (left base); no wheezes Cardiovascular: Rate/Rhythm: regular rate and regular rhythm Heart Sounds: normal S1 and normal S2 Musculoskeletal: Extremities: extremities normal to inspection Neurologic: no focal motor deficits Psychiatric: Orientation: alert and oriented x 3 Affect: euthymic affect Results & Data Vital Signs (Past 12 Hours) Vital Signs Temp Pulse Pulse Resp BP Pulse Ox O2 Del Method 06/10/24 07:58 36.6 C 84 18 138/70 95 Nasal Cannula 06/10/24 07:45 Nasal Cannula 06/10/24 03:49 37.0 C 88 19 130/58 L 96 Nasal Cannula 06/09/24 23:44 81 06/09/24 23:28 Nasal Cannula O2 Flow Rate 06/10/24 07:58 1 06/10/24 07:45 1 06/10/24 03:49 1.0 06/09/24 23:44 06/09/24 23:28 1 PG Care Time/CCT Total # of Minutes Spent Total Time Spent with Patient: Total time spent is greater than 50% in coordination of care (as documented) at patient's floor/unit and/or counseling patient: Coding Level of Care Code 86163 SUB INP/OBS CARE 235MIN Diagnoses MARY (acute kidney injury) N17.9 HTN (hypertension) I10 Hypertension type: unspecified UTI (urinary tract infection) N39.0 Weakness R53.1 Hyperkalemia E87.5 (2) HTN (hypertension) Hypertension type: unspecified Qualified Code(s): I10 - Essential (primary) hypertension
[2024-06-10] MEDS: LIDOCAINE VISCOUS 2% 15 ML UDC MT PRN (12:31)
--- NOTE | 2024-06-10 16:01 | Hospitalist Progress Note ---
Date of Service June 10, 2024 Assessment & Plan (1) MARY (acute kidney injury): Plan 89-year-old lady with PMH of PAF on Eliquis, CKD, T2DM, nonischemic cardiomyopathy [EF of 20 to 25% subsequently improved to most recent value of 60 to 65%] status post biventricular ICD, ANN intolerant to CPAP, rheumatoid arthritis, lumbar degenerative disease, CKD and chronic hypoxic respiratory failure requiring 2 L of oxygen was sent in from [place] for generalized pain and elevated blood pressure. She is being managed for the following: Hypertensive urgency: BP was 183/103 on presentation. Got Metoprolol succinate in ER. BP has been stable thereafter. Continue with home antihypertensive and as needed blood pressure medication. Lasix and Aldactone on hold due to acute on chronic kidney disease. Acute worsening of stage 4 chronic kidney disease: Admitting creatinine of 2.55, baseline creatinine around 1.7-1.9. Creatinine elevated likely in the setting of recent Bactrim use, Bactrim has been stopped. Creatinine uptrending 4.1, Lasix and Aldactone on hold, s/p gentle iVF, encourage PO intake. US renal w/ no obstruction. Nephrology onboard, appreciate recommendation. Labs in a.m., avoid nephrotoxic's. UTI (urinary tract infection): Metabolic encephalopathy: patient appears confused in the setting of recent Bactrim use. Hold Bactrim. Continue to monitor. UCx from 05/29/24 grew Klebsiella pneumonia Per [facility] records, she has been on Bactrim since Patient still reported urinary freq at presentation, Admitting urine culture no growth Stopped bactrim as above and continue IV ceftriaxone 06/06 for now --> to diff atb, see below. Aspiration pneumonia: Patient vomited in a.m. of 06/07, follow-up CXR with left lung base opacity. WBC peaked at 24.2K on 06/08. DC'd Rocephin and initiated Zosyn 06/08. Continue to monitor vitals and clinical status. Afebrile, wbc trending down. Pt feeling better. Other chronic medical conditions: Continue with/resume home meds as and when able. Chronic hypoxic respiratory failure, on home oxygen therapy: Continue home oxygen. Stable. Atrial fibrillation: Paroxysmal A-fib, rate controlled, continue home metoprolol And Eliquis. T2DM: A1c of 6.4 in 10/05. Continue sliding scale insulin. Rheumatoid arthritis: Pain control. Continue weekly methotrexate. She has chronic generalized body pains especially in hands, feet and low back due to her arthritis. Anxiety and depression: Continue home Ativan and Seroquel Nonischemic cardiomyopathy: Continue home Toprol-XL. Lasix and Aldactone on hold due to MARY over CKD. See above. Follows [facility] cardiology. Has chronic leg edema. DVT prophylaxis: Patient on Eliquis. CODE STATUS: DNR/DNI PT/OT, CM to assist with DC planning. Admission and Anticipated Discharge Date Admission Date: June 06, 2024 Subjective Patient was seen and examined at bedside. Patient was Sitting up in chair, on 1 L oxygen via nasal cannula, Denies increased baseline pain today. Is oriented x 3 today. Patient overall feels better, patient reports muscle, no white patch or oral ulcers noted on exam. Patient denies sore throat and belly pain. Per RN, patient is eating okay And moving bowels okay, no new acute event overnight. Physical Exam Physical Exam: Constitutional: + well hydrated a nd + obese, appear s ill/sick, is mookie ented x 3 today. Eyes: PERRL, conjunctiva e normal, anicteri c sclerae ENMT: external ear and n ose normal, oropha rynx normal Respiratory: normal respiratory effort; no respir atory distress Au scultation: lll cr ackles Cardiovascular: RRR S1 S2 Gastrointestinal ( Abdomen): normal bowel sound s, soft, nontender , no hepatosplenom egaly Musculoskeletal: Bilateral pedal e alfie trace to 1+ Neurologic: PERRL, EOMI, accom modation nl, no fa ce palsy, no dysar thria Psychiatric: A+Ox3, euthymic af fect Results & Data Results & Data Vital Signs (Past 12 Hours) Vital Signs Temp Pulse Resp BP Pulse Ox O2 Del Method O2 Flow Rate 06/10/24 15:51 36.9 C 80 18 121/73 90 Room Air 06/10/24 11:31 36.6 C 79 18 119/71 92 Nasal Cannula 1 06/10/24 07:58 36.6 C 84 18 138/70 95 Nasal Cannula 1 06/10/24 07:45 Nasal Cannula 1
[2024-06-11 07:52] LABS: Hematocrit (blood only) 31.8 % (37.0-47.0); Hemoglobin 10.7 g/dl (12.0-16.0); Mean Corpuscular Hemoglobin 32.6 pg (25.0-34.0); Mean Corpuscular Hgb Conc 33.6 g/dL (32.0-36.0); Mean Platelet Volume 10.5 fL (9.4-12.4); Platelet Count 116 K/uL (130-400); RDW Standard Deviation 52.8 fL (36.4-46.3); Red Blood Count 3.28 M/uL (4.20-5.40); White Blood Count 12.11 K/ul (4.8-10.8)
[2024-06-11 08:19] LABS: Albumin Level 3.1 gm/dl (3.4-5.0); Calcium 8.9 mg/dl (8.6-10.3); Potassium 4.3 mmol/L (3.5-5.1)
[2024-06-11 08:25] LABS: BUN Creatinine Ratio 17.5 (10-20); Creatinine Clr Calc Pharmacy 15.4 ml/min; Phosphorus 2.8 mg/dl (2.5-4.9)
[2024-06-11] MEDS: DICLOFENAC SOD 1% GEL 100 GM TUBE EXT PRN (09:10)
--- NOTE | 2024-06-11 11:53 | Nephrology Progress Note ---
Date of Service June 11, 2024 Assessment & Plan (1) MARY (acute kidney injury): (2) HTN (hypertension): (3) UTI (urinary tract infection): (4) Weakness: (5) Hyperkalemia: Plan 89-year-old female with stage IIIb/IV CKD baseline creatinine 1.8-2.0 mg/dl secondary to microvascular disease with history of hypertension, diabetes versus cardiorenal syndrome with nonischemic cardiomyopathy. Urinalysis with no proteinuria. Prior imaging showed stable bilateral simple cyst. Admitted with hypertensive urgency and generalized pain and weakness, blood pressure improved significantly. Recently was on Bactrim for UTI which was stopped. On admission lab was notable for MARY, creatinine was 2.6 which worsened to 3.6 this morning associated with hyperkalemia. She was recently on Bactrim for UTI which has now stopped. Repeat urinalysis in hospital was negative for proteinuria bacteriuria but CBC this morning was notable for significant leukocytosis and chest x-ray concerning for left lower lobe consolidation versus aspiration. Renal ultrasound with simple cyst and mild right-sided pelvicaliectasis without kenny hydronephrosis. Blood pressure improved and has been stable. Volume status seems reasonable, off of spironolactone and Lasix, net negative. MARY could be secondary to Bactrim and possibly hemodynamically mediated with some impaired autoregulation with rapid drop in blood pressure. Kidney function continues to improve, Cr down to 2.9 this morning. Volume status acceptable. Electrolyte acceptable. --encouraged increased p.o. intake and aim to keep net even. --Continue to hold spironolactone and Lasix for now as remains negative without diuretics. --Repeat renal panel in AM. --discontinue Nicole catheter, monitor intake and output. Admission and Anticipated Discharge Date Admission Date: June 06, 2024 Simon Townsend was seen and evaluated this morning. Overall doing better, denied any SOB, CP or other concerns. Blood pressure stable. Decent urine output, net negative more than 1 L off of diuretics. Continued and improvement in kidney function noted, creatinine down to 2.9 mg/dl, electrolyte acceptable. Review of Systems Review of Systems: Detailed review of system was done and pertinent positives and negatives are mentioned above. Physical Exam Constitutional: WD/WN, vitals as above no acute distress Eyes: + anicteric sclerae Respiratory: no respiratory distress Auscultation: + diminished lung sounds and + crackles (left base); no wheezes Cardiovascular: Rate/Rhythm: regular rate and regular rhythm Heart Sounds: normal S1 and normal S2 Musculoskeletal: Extremities: extremities normal to inspection Neurologic: no focal motor deficits Psychiatric: Orientation: alert and oriented x 3 Affect: euthymic affect Results & Data Vital Signs (Past 12 Hours) Vital Signs Temp Pulse Pulse Resp BP Pulse Ox O2 Del Method 06/11/24 11:27 36.7 C 83 18 156/76 H 93 Room Air 06/11/24 07:41 80 06/11/24 07:30 36.7 C 79 18 158/85 H 92 Room Air 06/11/24 04:00 36.2 C L 80 20 144/74 H 92 Room Air 06/11/24 00:32 87 PG Care Time/CCT Total # of Minutes Spent Total Time Spent with Patient: Total time spent is greater than 50% in coordination of care (as documented) at patient's floor/unit and/or counseling patient: Coding Level of Care Code 56333 SUB INP/OBS CARE 2/35MIN Diagnoses MARY (acute kidney injury) N17.9 HTN (hypertension) I10 Hypertension type: unspecified UTI (urinary tract infection) N39.0 Weakness R53.1 Hyperkalemia E87.5 (2) HTN (hypertension) Hypertension type: unspecified Qualified Code(s): I10 - Essential (primary) hypertension
--- NOTE | 2024-06-11 15:41 | Hospitalist Progress Note ---
Date of Service June 11, 2024 Assessment & Plan (1) MARY (acute kidney injury): Plan 89-year-old lady with PMH of PAF on Eliquis, CKD, T2DM, nonischemic cardiomyopathy [EF of 20 to 25% subsequently improved to most recent value of 60 to 65%] status post biventricular ICD, ANN intolerant to CPAP, rheumatoid arthritis, lumbar degenerative disease, CKD and chronic hypoxic respiratory failure requiring 2 L of oxygen was sent in from [place] for generalized pain and elevated blood pressure. She is being managed for the following: Hypertensive urgency: BP was 183/103 on presentation. Got Metoprolol succinate in ER. BP has been stable thereafter. Continue with home antihypertensive and as needed blood pressure medication. Lasix and Aldactone on hold due to acute on chronic kidney disease. Acute worsening of stage 4 chronic kidney disease: Admitting creatinine of 2.55, baseline creatinine around 1.7-1.9. Creatinine elevated likely in the setting of recent Bactrim use, Bactrim has been stopped. Creatinine uptrended to 4.1, Lasix and Aldactone on hold, s/p gentle iVF, encourage PO intake. US renal w/ no obstruction. Cr improving, Nephrology onboard, appreciate recommendation. Labs in a.m., avoid nephrotoxic's. UTI (urinary tract infection): Metabolic encephalopathy: patient appears confused in the setting of recent Bactrim use. Hold Bactrim. Continue to monitor. UCx from 05/29/24 grew Klebsiella pneumonia Per [facility] records, she has been on Bactrim since Patient still reported urinary freq at presentation, Admitting urine culture no growth Stopped bactrim as above and continue IV ceftriaxone 06/06 for now --> to diff atb, see below. Aspiration pneumonia: Patient vomited in a.m. of 06/07, follow-up CXR with left lung base opacity. WBC peaked at 24.2K on 06/08. DC'd Rocephin and initiated Zosyn 06/08. Continue to monitor vitals and clinical status. Afebrile, wbc trending down. Pt feeling better. Other chronic medical conditions: Continue with/resume home meds as and when able. Chronic hypoxic respiratory failure, on home oxygen therapy: Continue home oxygen. Stable. Atrial fibrillation: Paroxysmal A-fib, rate controlled, continue home metoprolol And Eliquis. T2DM: A1c of 6.4 in 10/05. Continue sliding scale insulin. Rheumatoid arthritis: Pain control. Continue weekly methotrexate. She has chronic generalized body pains especially in hands, feet and low back due to her arthritis. Anxiety and depression: Continue home Ativan and Seroquel Nonischemic cardiomyopathy: Continue home Toprol-XL. Lasix and Aldactone on hold due to MARY over CKD. See above. Follows [facility] cardiology. Has chronic leg edema. DVT prophylaxis: Patient on Eliquis. CODE STATUS: DNR/DNI PT/OT, CM to assist with DC planning. Admission and Anticipated Discharge Date Admission Date: June 06, 2024 Subjective Patient was seen and examined at bedside. Patient was sitting up in chair, on 1 RA, reports baseline pain today. Patient overall feels better. Patient denies sore throat and belly pain. Per RN, patient is eating okay , last bm 2 d ago. Physical Exam Physical Exam: Constitutional: + well hydrated a nd + obese, appear s ill/sick, is mookie ented x 3 today. Eyes: PERRL, conjunctiva e normal, anicteri c sclerae ENMT: external ear and n ose normal, oropha rynx normal Respiratory: normal respiratory effort; no respir atory distress Au scultation: lll cr ackles Cardiovascular: RRR S1 S2 Gastrointestinal ( Abdomen): normal bowel sound s, soft, nontender , no hepatosplenom egaly Musculoskeletal: Bilateral pedal e alfie trace to 1+ Neurologic: PERRL, EOMI, accom modation nl, no fa ce palsy, no dysar thria Psychiatric: A+Ox3, euthymic af fect Results & Data Results & Data Vital Signs (Past 12 Hours) Vital Signs Temp Pulse Pulse Resp BP Pulse Ox O2 Del Method 06/11/24 15:26 36.5 C 81 18 152/83 H 90 Room Air 06/11/24 14:06 80 06/11/24 11:27 36.7 C 83 18 156/76 H 93 Room Air 06/11/24 07:41 80 06/11/24 07:30 36.7 C 79 18 158/85 H 92 Room Air 06/11/24 04:00 36.2 C L 80 20 144/74 H 92 Room Air
[2024-06-12 07:20] LABS: Hematocrit (blood only) 33.3 % (37.0-47.0); Hemoglobin 11.1 g/dl (12.0-16.0); Mean Corpuscular Hemoglobin 32.6 pg (25.0-34.0); Mean Corpuscular Hgb Conc 33.3 g/dL (32.0-36.0); Mean Corpuscular Volume 97.7 fL (80.0-100.0); Mean Platelet Volume 9.9 fL (9.4-12.4); Platelet Count 159 K/uL (130-400); RDW Coefficient of Variation 15.3 % (11.5-14.5); RDW Standard Deviation 54.1 fL (36.4-46.3); Red Blood Count 3.41 M/uL (4.20-5.40); White Blood Count 12.65 K/ul (4.8-10.8)
[2024-06-12 07:39] LABS: Albumin Level 3.2 gm/dl (3.4-5.0); BUN Creatinine Ratio 17.4 (10-20); Calcium 9.1 mg/dl (8.6-10.3); Creatinine Clr Calc Pharmacy 18.6 ml/min; Potassium 4.3 mmol/L (3.5-5.1)
--- NOTE | 2024-06-12 08:18 | Nephrology Progress Note ---
Date of Service June 12, 2024 Assessment & Plan (1) MARY (acute kidney injury): Plan: * MARY likely due to combination of dehydration and bactrim therapy * Bactrim and lasix have been stopped * Creatinine peaked at 4.1 but has improved to 2.4 today * Patient is nonoliguric. She is net +400 cc since admission * Electrolyte balance is acceptable. No acute indication for HD at this time * Monitor PRP, UO (2) HTN (hypertension): Plan: * SBP is again trending up * Will resume spironolactone at 12.5 mg daily * Monitor BP, BMP (3) UTI (urinary tract infection): Plan: * h/o klebsiella UTI * 06/06/24 urine culture was probable skin romulo only (4) Hyperkalemia: Plan: * Resolved (5) Weakness: Plan: * Continue PT Admission and Anticipated Discharge Date Admission Date: June 06, 2024 Subjective Ms. Taylor was evaluated in her hospital room this morning. She c/o pain and swelling involving her hands bilaterally. She reports a h/o arthritis. Ms. Taylor denied NGUYEN, angina, dyspnea. Review of Systems Constitutional: no fever Eyes: no problem reported Ear, Nose, Mouth, Throat: no problem reported Respiratory: no cough and no dyspnea Cardiovascular: no chest pain Gastrointestinal: no abdominal pain Genitourinary: no dysuria Musculoskeletal: bilateral hand/wrist discomfort Physical Exam Eyes: PERRL, conjunctivae normal, anicteric sclerae ENMT: external ear and nose normal, oropharynx normal Neck: trachea midline, no thyromegaly Respiratory: normal respiratory effort, lungs clear to auscultation Cardiovascular: Rate/Rhythm: regular rate and regular rhythm Extremities: + edema (trace LE swelling) Gastrointestinal (Abdomen): normal bowel sounds, soft, nontender, no hepatosplenomegaly Musculoskeletal: Extremities: no cyanosis and no clubbing Results & Data Vital Signs (Past 12 Hours) Vital Signs Temp Pulse Resp BP Pulse Ox O2 Del Method O2 Flow Rate 06/12/24 07:25 36.4 C L 80 18 180/78 H 96 Nasal Cannula 1 06/12/24 03:10 36.8 C 80 18 159/80 H 97 Nasal Cannula 1.0 06/11/24 23:09 36.9 C 80 18 116/71 92 Nasal Cannula 1.0 Laboratory Results Laboratory Results - last 24 hr 06/11/24 06/11/24 06/11/24 07:28 11:14 16:05 WBC RBC Hgb Hct MCV MCH MCHC RDW Std Deviation RDW Coeff of Shai Plt Count MPV Sodium 136 Potassium 4.3 Chloride 103 Carbon Dioxide 25 Anion Gap 8 BUN 51 H Creatinine 2.91 H D Est Cr Clr Drug Dosing 15.4 eGFR 15.13 BUN/Creatinine Ratio 17.5 Glucose 132 H POC Glucose 228 H 292 H Calcium 8.9 Phosphorus 2.8 Magnesium 2.0 Albumin 3.1 L 06/11/24 06/12/24 06/12/24 20:19 06:55 07:24 WBC 12.65 H RBC 3.41 L Hgb 11.1 L Hct 33.3 L MCV 97.7 MCH 32.6 MCHC 33.3 RDW Std Deviation 54.1 H RDW Coeff of Shai 15.3 H Plt Count 159 MPV 9.9 Sodium 137 Potassium 4.3 Chloride 105 Carbon Dioxide 26 Anion Gap 6 BUN 42 H Creatinine 2.41 H D Est Cr Clr Drug Dosing 18.6 eGFR 18.98 BUN/Creatinine Ratio 17.4 Glucose 137 H POC Glucose 160 H 126 H Calcium 9.1 Phosphorus 3.0 Magnesium Albumin 3.2 L PG Care Time/CCT Total # of Minutes Spent Total Time Spent with Patient: Total time spent is greater than 50% in coordination of care (as documented) at patient's floor/unit and/or counseling patient: Coding Level of Care Code 87377 SUB INP/OBS CARE 3/50MIN Diagnoses MARY (acute kidney injury) N17.9 HTN (hypertension) I10 Hypertension type: unspecified UTI (urinary tract infection) N39.0 Hyperkalemia E87.5 Weakness R53.1 (2) HTN (hypertension) Hypertension type: unspecified Qualified Code(s): I10 - Essential (primary) hypertension
[2024-06-12] MEDS: SPIRONOLACTONE 12.5 MG TAB PO SCH (09:34)
--- NOTE | 2024-06-12 15:58 | Hospitalist Progress Note ---
Date of Service June 12, 2024 Assessment & Plan (1) MARY (acute kidney injury): Plan 89-year-old lady with PMH of PAF on Eliquis, CKD, T2DM, nonischemic cardiomyopathy [EF of 20 to 25% subsequently improved to most recent value of 60 to 65%] status post biventricular ICD, ANN intolerant to CPAP, rheumatoid arthritis, lumbar degenerative disease, CKD and chronic hypoxic respiratory failure requiring 2 L of oxygen was sent in from [place] for generalized pain and elevated blood pressure. She is being managed for the following: Hypertensive urgency: BP was 183/103 on presentation. Got Metoprolol succinate in ER. BP has been stable thereafter. Continue with home antihypertensive and as needed blood pressure medication. Lasix and Aldactone on hold due to acute on chronic kidney disease. Acute worsening of stage 4 chronic kidney disease: Admitting creatinine of 2.55, baseline creatinine around 1.7-1.9. Creatinine elevated likely in the setting of recent Bactrim use, Bactrim has been stopped. Creatinine uptrended to 4.1, Lasix and Aldactone on hold, s/p gentle iVF, encourage PO intake. US renal w/ no obstruction. Cr improving, Nephrology onboard, appreciate recommendation. Aldactone resumed t rob, lasix still on hold. Labs in a.m., avoid nephrotoxic's. UTI (urinary tract infection): Metabolic encephalopathy: patient appears confused in the setting of recent Ba ctrim use. Hold Bactrim. Continue to monitor. UCx from 05/29/24 grew Klebsiella pneumonia Per [facility] records, she has been on Bactrim since Patient still reported urinary freq at presentation, Admitting urine culture no growth Stopped bactrim as above and continue IV ceftriaxone 06/06 for now --> to diff atb, see below. Aspiration pneumonia: Patient vomited in a.m. of 06/07, follow-up CXR with left lung base opacity. WBC peaked at 24.2K on 06/08. DC'd Rocephin and initiated Zosyn 06/08. Continue to monitor vitals and clinical status. Afebrile, wbc trending down. Pt feeling better. will complete 7-10 day antibiotic course. Other chronic medical conditions: Continue with/resume home meds as and when able. Chronic hypoxic respiratory failure, on home oxygen therapy: Continue home oxygen. Stable. Atrial fibrillation: Paroxysmal A-fib, rate controlled, continue home metoprolol And Eliquis. T2DM: A1c of 6.4 in 10/05. Continue sliding scale insulin. Rheumatoid arthritis: Pain control. Continue weekly methotrexate. She has chronic generalized body pains especially in hands, feet and low back due to her arthritis. Anxiety and depression: Continue home Ativan and Seroquel Nonischemic cardiomyopathy: Continue home Toprol-XL. Lasix and Aldactone on hold due to MARY over CKD. See above. Follows [facility] cardiology. Has chronic leg edema. DVT prophylaxis: Patient on Eliquis. CODE STATUS: DNR/DNI PT/OT, CM to assist with DC planning. Admission and Anticipated Discharge Date Admission Date: June 06, 2024 Subjective Patient was seen and examined at bedside. Patient was lying in bed, on 2L NC O2, reports bue swelling and pain. Family stated steroid helps w/ her bue symptoms in the past, will utilize small dose of steroid for 5 days. Patient overall feels about the same today as yesterday. Patient denies sore throat and belly pain. Per RN, patient is eating okay , last bm 3 d ago. Physical Exam Physical Exam: Constitutional: + well hydrated a nd + obese, appear s ill/sick, is mookie ented x 3 today. Eyes: PERRL, conjunctiva e normal, anicteri c sclerae ENMT: external ear and n ose normal, oropha rynx normal Respiratory: normal respiratory effort; no respir atory distress Au scultation: lll cr ackles Cardiovascular: RRR S1 S2 Gastrointestinal ( Abdomen): normal bowel sound s, soft, nontender , no hepatosplenom egaly Musculoskeletal: Bilateral pedal e alfie 1+, bue edema noted. Neurologic: PERRL, EOMI, accom modation nl, no fa ce palsy, no dysar thria Psychiatric: A+Ox3, euthymic af fect Results & Data Results & Data Vital Signs (Past 12 Hours) Vital Signs Temp Pulse Resp BP BP Pulse Ox O2 Del Method 06/12/24 15:20 36.6 C 80 16 156/81 H 97 Nasal Cannula 06/12/24 13:59 Nasal Cannula 06/12/24 11:09 36.5 C 80 18 135/80 94 Nasal Cannula 06/12/24 07:25 36.4 C L 80 18 180/78 H 96 Nasal Cannula O2 Flow Rate 06/12/24 15:20 1 06/12/24 13:59 1 06/12/24 11:09 1 06/12/24 07:25 1
[2024-06-12] MEDS: POLYETHYLENE (MIRALAX) 17 GM PACK PO SCH (16:46)
[2024-06-13 08:00] LABS: Hematocrit (blood only) 33.2 % (37.0-47.0); Hemoglobin 10.8 g/dl (12.0-16.0); Mean Corpuscular Hemoglobin 32.3 pg (25.0-34.0); Mean Corpuscular Hgb Conc 32.5 g/dL (32.0-36.0); Mean Corpuscular Volume 99.4 fL (80.0-100.0); Mean Platelet Volume 9.8 fL (9.4-12.4); Platelet Count 209 K/uL (130-400); RDW Coefficient of Variation 15.9 % (11.5-14.5); RDW Standard Deviation 56.2 fL (36.4-46.3); Red Blood Count 3.34 M/uL (4.20-5.40); White Blood Count 10.35 K/ul (4.8-10.8)
[2024-06-13] MEDS: predniSONE 5 MG TAB PO SCH (08:20)
[2024-06-13 08:25] LABS: BUN Creatinine Ratio 16.6 (10-20); Calcium 9.1 mg/dl (8.6-10.3); Creatinine Clr Calc Pharmacy 19.1 ml/min; Magnesium 1.6 mg/dl (1.7-2.4); Phosphorus 3.4 mg/dl (2.5-4.9)
--- NOTE | 2024-06-13 08:38 | Nephrology Progress Note ---
Date of Service June 13, 2024 Assessment & Plan (1) MARY (acute kidney injury): Plan: * MARY likely due to combination of dehydration and bactrim therapy * Bactrim has been stopped * Creatinine peaked at 4.1 but has improved to 2.3 today * Patient is nonoliguric * She appears clinically volume contracted * Will provide 500 cc 0.9 NS IV x1 today * Patient does have inspiratory rales. Suspect atelectasis. Will order portable CXR * Electrolyte balance is acceptable. No acute indication for HD at this time * Monitor PRP, UO (2) HTN (hypertension): Plan: * SBP remains elevated * Continue spironolactone 12.5 mg daily * Start amlodipine 2.5 mg daily * Monitor BP, BMP (3) UTI (urinary tract infection): Plan: * h/o klebsiella UTI * 06/06/24 urine culture was probable skin romulo only (4) Hyperkalemia: Plan: * Resolved (5) Weakness: Plan: * Continue PT Admission and Anticipated Discharge Date Admission Date: June 06, 2024 Subjective Ms. Taylor was evaluated in her hospital room this morning. She denied NGUYEN, angina, dyspnea. She voiced no new medical concerns Review of Systems Constitutional: no fever Eyes: no problem reported Ear, Nose, Mouth, Throat: no problem reported Respiratory: no cough and no dyspnea Cardiovascular: no chest pain Gastrointestinal: no abdominal pain Genitourinary: no dysuria Physical Exam Eyes: PERRL, conjunctivae normal, anicteric sclerae ENMT: external ear and nose normal, oropharynx normal Neck: trachea midline, no thyromegaly Respiratory: normal respiratory effort, lungs clear to auscultation Cardiovascular: Rate/Rhythm: regular rate and regular rhythm Extremities: + edema (trace LE swelling) Gastrointestinal (Abdomen): normal bowel sounds, soft, nontender, no hepatosplenomegaly Musculoskeletal: Extremities: no cyanosis and no clubbing Results & Data Vital Signs (Past 12 Hours) Vital Signs Temp Pulse Pulse Resp BP Pulse Ox O2 Del Method 06/13/24 07:30 36.6 C 80 18 155/77 H 92 Nasal Cannula 06/13/24 07:00 80 06/13/24 02:52 36.5 C 79 18 157/91 H 95 Nasal Cannula 06/12/24 22:49 36.8 C 79 18 115/66 94 Nasal Cannula 06/12/24 21:22 148/72 H 06/12/24 21:00 Nasal Cannula O2 Flow Rate 06/13/24 07:30 1 06/13/24 07:00 06/13/24 02:52 2.0 06/12/24 22:49 2.0 06/12/24 21:22 06/12/24 21:00 1 Laboratory Results Laboratory Results - last 24 hr 06/12/24 06/12/24 06/12/24 11:16 16:11 20:16 WBC RBC Hgb Hct MCV MCH MCHC RDW Std Deviation RDW Coeff of Shai Plt Count MPV Sodium Potassium Chloride Carbon Dioxide Anion Gap BUN Creatinine Est Cr Clr Drug Dosing eGFR BUN/Creatinine Ratio Glucose POC Glucose 180 H 205 H 159 H Calcium Phosphorus Magnesium 06/13/24 06/13/24 07:25 07:28 WBC 10.35 RBC 3.34 L Hgb 10.8 L Hct 33.2 L MCV 99.4 MCH 32.3 MCHC 32.5 RDW Std Deviation 56.2 H RDW Coeff of Shai 15.9 H Plt Count 209 MPV 9.8 Sodium 137 Potassium 4.0 Chloride 104 Carbon Dioxide 27 Anion Gap 6 BUN 39 H Creatinine 2.35 H Est Cr Clr Drug Dosing 19.1 eGFR 19.56 BUN/Creatinine Ratio 16.6 Glucose 123 H POC Glucose 143 H Calcium 9.1 Phosphorus 3.4 Magnesium 1.6 L PG Care Time/CCT Total # of Minutes Spent Total Time Spent with Patient: Total time spent is greater than 50% in coordination of care (as documented) at patient's floor/unit and/or counseling patient: Coding Level of Care Code 42066 SUB INP/OBS CARE 3/50MIN Diagnoses MARY (acute kidney injury) N17.9 HTN (hypertension) I10 Hypertension type: unspecified UTI (urinary tract infection) N39.0 Hyperkalemia E87.5 Weakness R53.1 (2) HTN (hypertension) Hypertension type: unspecified Qualified Code(s): I10 - Essential (primary) hypertension
[2024-06-13] MEDS: SODIUM CHLORIDE 0.9% 500 ML IV SCH (11:12)
[2024-06-13] MEDS: amLODIPine BESYLATE 5 MG TAB PO SCH (11:13)
--- NOTE | 2024-06-13 11:20 | XRay Report ---
XR chest 1V portable CLINICAL HISTORY: BLL rales - atelectasis? COMPARISON STUDY: Chest CT May 31, 2023. Chest radiograph June 07, 2024. FINDINGS: An old proximal right humeral fracture is incidentally noted. A left subclavian biventricul ar pacer/AICD is in place. Cardiomegaly is again noted. Pulmonary vascular congestion with suspected mild pulmonary edema has developed. There is no consolidation to suggest pneumonia. There is no pneum othorax or pleural effusion. IMPRESSION: 1. Cardiomegaly. Perivascular congestion with suspected mild pulmonary edema. 2. No definite consolidation to suggest pneumonia. Apparent left basilar opacity. Favor atelectasis o r artifact. ACT 112: Negative or not required by law. Electronically signed by: Fritz Evans M.D. 06/13/2024 11:19 AM
--- NOTE | 2024-06-13 16:35 | Hospitalist Progress Note ---
Date of Service June 13, 2024 Assessment & Plan (1) MARY (acute kidney injury): Plan 89-year-old lady with PMH of PAF on Eliquis, CKD, T2DM, nonischemic cardiomyopathy [EF of 20 to 25% subsequently improved to most recent value of 60 to 65%] status post biventricular ICD, ANN intolerant to CPAP, rheumatoid arthritis, lumbar degenerative disease, CKD and chronic hypoxic respiratory failure requiring 2 L of oxygen was sent in from [place] for generalized pain and elevated blood pressure. She is being managed for the following: Hypertensive urgency: BP was 183/103 on presentation. Got Metoprolol succinate in ER. BP has been stable thereafter. Continue with home antihypertensive and as needed blood pressure medication. BP is reasonably controlled with current medications on spironolactone 12.5 mg daily and amlodipine 2.5 mg daily on top follow-up metoprolol succinate 200 mg daily Will observe in the hospital Acute worsening of stage 4 chronic kidney disease: Admitting creatinine of 2.55, baseline creatinine around 1.7-1.9. Secondary to dehydration and Bactrim therapy Lasix is on hold and Aldactone has been continued US renal w/ no obstruction. Cr improving, Nephrology onboard, appreciate recommendation. Aldactone resumed today, lasix still on hold. Avoid nephrotoxins Has been getting cautious amount of intravenous fluid for worsening creatinine Will monitor PRP UTI (urinary tract infection): Metabolic encephalopathy: patient appears confused in the setting of recent Bactrim use. Hold Bactrim. Continue to monitor. UCx from 05/29/24 grew Klebsiella pneumonia Per [facility] records, she has been on Bactrim since Patient still reported urinary freq at presentation, Admitting urine culture no growth Stopped bactrim as above and continue IV ceftriaxone 06/06 for now --> to diff atb, see below. Has been on intravenous Zosyn which will cover UTI and also possible aspiration pneumonia To finish a course of antibiotic for 7 to 10 days in total Aspiration pneumonia: Patient vomited in a.m. of 06/07, follow-up CXR with left lung base opacity. WBC peaked at 24.2K on 06/08. DC'd Rocephin and initiated Zosyn 06/08. Continue to monitor vitals and clinical status. Afebrile, wbc trending down. Pt feeling better. will complete 7-10 day antibiotic course. Other chronic medical conditions: Continue with/resume home meds as and when able. Chronic hypoxic respiratory failure, on home oxygen therapy: Continue home oxygen. Stable. Atrial fibrillation: Paroxysmal A-fib, rate controlled, continue home metoprolol And Eliquis. T2DM: A1c of 6.4 in 10/05. Continue sliding scale insulin. Rheumatoid arthritis: Pain control. Continue weekly methotrexate. She has chronic generalized body pains especially in hands, feet and low back due to her arthritis. Anxiety and depression: Continue home Ativan and Seroquel Nonischemic cardiomyopathy: Continue home Toprol-XL. Lasix and Aldactone on hold due to MARY over CKD. See above. Follows [facility] cardiology. Has chronic leg edema. DVT prophylaxis: Patient on Eliquis. CODE STATUS: DNR/DNI PT/OT, CM to assist with DC planning. Discussed with the family members Admission and Anticipated Discharge Date Admission Date: June 06, 2024 Subjective 06/13/2024 The patient was seen and examined in telemetry unit in presence of the family members She has been stable and making out less urine She is on intravenous fluid and denies any significant symptoms Review of Systems Review of Systems: All systems reviewed and are unremarkable except as noted below Physical Exam Physical Exam: Lying in bed without any acute distress Constitutional: well developed, well nourished, + ill appearing and + obese Eyes: PERRL, conjunctivae normal, anicteric sclerae ENMT: external ear and nose normal, oropharynx normal Neck: trachea midline, no thyromegaly Respiratory: no respiratory distress Auscultation: lungs clear to auscultation bilaterally Cardiovascular: Rate/Rhythm: regular rate and regular rhythm; not tachycardic Heart Sounds: normal S1 and normal S2; no murmur Extremities: + edema ( trace edema bilaterally) Gastrointestinal (Abdomen): Inspection/Auscultation: normal bowel sounds; abdomen not distended Percussion/Palpation: abdomen soft; abdomen nontender Musculoskeletal: No acute arthritis involving any of the joint Neurologic: normal touch/pain/proprioception and moves all extremities; no focal motor deficits Lymphatic: no cervical or axillary lymphadenopathy Results & Data Results & Data Vital Signs (Past 12 Hours) Vital Signs Temp Pulse Pulse Resp BP BP Pulse Ox 06/13/24 15:12 36.5 C 81 18 168/78 H 95 06/13/24 14:50 80 12/31/24 11:21 36.6 C 82 18 151/79 H 92 06/13/24 08:00 06/13/24 07:30 36.6 C 80 18 155/77 H 92 06/13/24 07:00 80 O2 Del Method O2 Flow Rate 06/13/24 15:12 Nasal Cannula 1 06/13/24 14:50 06/13/24 11:21 Nasal Cannula 1 06/13/24 08:00 Nasal Cannula 06/13/24 07:30 Nasal Cannula 1 06/13/24 07:00 Laboratory Results Short CBC 06/13/24 Range/Units 07:28 WBC 10.35 (4.8-10.8) K/ul Hgb 10.8 L (12.0-16.0) g/dl Hct 33.2 L (37.0-47.0) % Plt Count 209 (130-400) K/uL BMP 06/13/24 07:28 Sodium 137 Potassium 4.0 Chloride 104 Carbon Dioxide 27 BUN 39 H Creatinine 2.35 H Glucose 123 H Calcium 9.1 Medications Administered Current Inpatient Medications Acetaminophen (Acetaminophen 500 Mg Tab) 1,000 mg PO BID NIHARIKA Stop: 07/06/24 20:59 Last Admin: 06/13/24 08:24 Dose: 1,000 mg Hydrocodone Bitart/Acetaminophen (Hydrocodone/Acetaminophen 10/325 Tab) 1 tab PO TID PRN PRN Reason: Moderate pain Stop: 06/20/24 12:39 Last Admin: 06/13/24 06:18 Dose: 1 tab Amlodipine Besylate (Amlodipine Besylate 5 Mg Tab) 2.5 mg PO QAM NIHARIKA Stop: 07/13/24 10:14 Last Admin: 06/13/24 11:13 Dose: 2.5 mg Apixaban (Apixaban 2.5 Mg Tab) 2.5 mg PO BID NIHARIKA Stop: 07/06/24 20:59 Last Admin: 06/13/24 08:19 Dose: 2.5 mg Atorvastatin Calcium (Atorvastatin 10 Mg Tab) 10 mg PO HS NIHARIKA Stop: 07/06/24 20:59 Last Admin: 06/12/24 20:04 Dose: 10 mg Benzonatate (Benzonatate 100 Mg Capsule) 200 mg PO TID PRN PRN Reason: Cough Stop: 07/06/24 12:25 Buspirone HCl (Buspirone 7.5 Mg Tab) 7.5 mg PO TID NIHARIKA Stop: 07/06/24 13:59 Last Admin: 06/13/24 12:32 Dose: 7.5 mg Calcium Carbonate (Calcium Carbonate 1250mg Tab) 1 tab PO TID PRN PRN Reason: stomach acid Stop: 07/06/24 12:37 Calcium Carbonate (Calcium Carbonate 500 Mg Chewable Tab) 1,000 mg PO Q8H PRN PRN Reason: Indigestion Stop: 07/07/24 17:25 Dextrose (Dextrose 50% 50 Ml Syringe) 25 - 50 ml IV UD PRN; Protocol PRN Reason: Hypoglycemia Protocol Stop: 07/06/24 19:39 Diclofenac Sodium (Diclofenac Sod 1% Gel 100 Gm Tube) 2 gm EXT Q6H PRN; Protocol PRN Reason: pain Stop: 07/11/24 08:14 Last Admin: 06/11/24 14:59 Dose: 2 gm Docusate Sodium (Docusate Sodium 100 Mg Cap) 100 mg PO DAILY NIHARIKA Stop: 07/07/24 08:59 Last Admin: 06/13/24 08:24 Dose: 100 mg Folic Acid (Folic Acid 1 Mg Tab) 2 mg PO DAILY NIHARIKA Stop: 07/07/24 08:59 Last Admin: 06/13/24 08:18 Dose: 2 mg Furosemide (Furosemide 40 Mg Tab) 40 mg PO DAILY NIHARIKA Stop: 07/07/24 08:59 Last Admin: 06/07/24 09:49 Dose: 40 mg Gabapentin (Gabapentin 300 Mg Cap) 300 mg PO HS NIHARIKA Stop: 07/06/24 20:59 Last Admin: 06/12/24 20:05 Dose: 300 mg Gabapentin (Gabapentin 100 Mg Cap) 100 mg PO DAILY NIHARIKA Stop: 07/07/24 08:59 Last Admin: 06/13/24 08:19 Dose: 100 mg Glucagon (Glucagon For Inj 1 Mg Vial) 1 mg SQ UD PRN; Protocol PRN Reason: Hypoglycemia Protocol Stop: 07/06/24 19:39 Glucose (Glucose 40% Gel 15 Gm Tube) 15 - 30 gm PO UD PRN; Protocol PRN Reason: Hypoglycemia Protocol Stop: 07/06/24 19:39 Glucose (Glucose 10 Tab/Tube) 4 - 8 tab PO UD PRN; Protocol PRN Reason: Hypoglycemia Protocol Stop: 07/06/24 19:39 Piperacillin Sod/Tazobactam Sod (Zosyn) 4.5 gm in 100 mls @ 25 mls/hr IV Q12H [facility]; Protocol Stop: 06/13/24 22:59 Last Infusion: 06/13/24 15:14 Dose: Infused Sodium Chloride (Nss) 500 mls @ 80 mls/hr IV .Q6H15M [facility] Stop: 06/13/24 16:29 Last Admin: 06/13/24 11:12 Dose: 80 mls/hr Insulin Aspart (Insulin Aspart Per Unit Charge) 0 units SC ACHS [facility] Stop: 07/06/24 12:25 Last Admin: 06/13/24 12:31 Dose: 5 units Insulin Glargine (Lantus Per Unit Charge) 25 units SQ QAM [facility] Stop: 07/07/24 08:59 Last Admin: 06/13/24 08:17 Dose: 25 units Labetalol HCl (Labetalol Hcl Iv 5 Mg/Ml 20ml) 5 mg IV Q4H PRN PRN Reason: HTN Stop: 07/07/24 17:40 Lactobacillus Acidophilus (Advanced Probiotic 625 Mg Capsule) 1,250 mg PO DAILY [facility] Stop: 07/08/24 11:44 Last Admin: 06/13/24 08:18 Dose: 1,250 mg Lidocaine (Lidocaine 5% 1 Patch) 1 patch TD DAILY PRN PRN Reason: Other Stop: 07/06/24 12:40 Last Admin: 06/07/24 13:56 Dose: 1 patch Lidocaine HCl (Lidocaine Viscous 2% 15 Ml Udc) 15 ml MT TID PRN PRN Reason: for sore mouth Stop: 07/09/24 17:41 Last Admin: 06/10/24 12:31 Dose: 15 ml Lorazepam (Lorazepam 1 Mg Tab) 1 mg PO DAILY PRN PRN Reason: Anxiety Stop: 07/06/24 12:25 Lorazepam (Lorazepam 1 Mg Tab) 1 mg PO BID [facility] Stop: 07/06/24 20:59 Last Admin: 06/13/24 08:24 Dose: 1 mg Metoprolol Succinate (Metoprolol Succ 50mg Ext Rel Tab) 200 mg PO DAILY [facility] Stop: 07/07/24 08:59 Last Admin: 06/13/24 08:18 Dose: 200 mg Miscellaneous (Carbohydrates For Hypoglycemia ) 15 - 30 gm PO UD PRN PRN Reason: Hypoglycemia Protocol Stop: 07/06/24 19:39 Montelukast Sodium (Montelukast Sodium 10 Mg Tablet) 10 mg PO QPM NIHARIKA Stop: 07/06/24 20:59 Last Admin: 06/12/24 20:04 Dose: 10 mg Multivitamins/Minerals (Cerovite Adv Formula Tab) 1 tab PO BID NIHARIKA Stop: 07/06/24 20:59 Last Admin: 06/13/24 08:20 Dose: 1 tab Ondansetron HCl (Ondansetron 4 Mg Od Tab) 4 mg PO DAILY PRN PRN Reason: Nausea And Vomiting Stop: 07/06/24 12:25 Pantoprazole Sodium (Pantoprazole 40 Mg Tab) 40 mg PO BID NIHARIKA Stop: 07/06/24 20:59 Last Admin: 06/13/24 08:18 Dose: 40 mg Polyethylene Glycol (Polyethylene (Miralax) 17 Gm Pack) 17 gm PO DAILY NIHARIKA Stop: 07/12/24 15:59 Last Admin: 06/13/24 08:24 Dose: 17 gm Prednisone (Prednisone 5 Mg Tab) 5 mg PO QAM NIHARIKA Stop: 06/17/24 09:01 Last Admin: 06/13/24 08:20 Dose: 5 mg Quetiapine Fumarate (Quetiapine Fumarate 25 Mg Tablet) 25 mg PO HS NIHARIKA Stop: 07/06/24 20:59 Last Admin: 06/12/24 20:05 Dose: 25 mg Simethicone (Simethicone 80 Mg Chew) 160 mg PO TIDM NIHARIKA Stop: 07/06/24 13:59 Last Admin: 06/13/24 12:31 Dose: 160 mg Spironolactone (Spironolactone 12.5 Mg Tab) 12.5 mg PO DAILY NIHARIKA Stop: 07/12/24 08:59 Last Admin: 06/13/24 08:20 Dose: 12.5 mg Venlafaxine HCl (Venlafaxine Hcl Xr 75 Mg Capxr) 75 mg PO HS NIHARIKA Stop: 07/06/24 20:59 Last Admin: 06/12/24 20:04 Dose: 75 mg Vitamin B Complex (Vitamin B Complex Tab) 1 tab PO DAILY NIHARIKA Stop: 07/07/24 08:59 Last Admin: 06/13/24 08:20 Dose: 1 tab Vitamin D (Cholecalciferol 25 Mcg (1000 Units) Tab) 25 mcg PO DAILY NIHARIKA Stop: 07/07/24 08:59 Last Admin: 06/13/24 08:20 Dose: 25 mcg
[2024-06-14 08:34] LABS: Hematocrit (blood only) 32.6 % (37.0-47.0); Hemoglobin 10.5 g/dl (12.0-16.0); Mean Corpuscular Hemoglobin 32.6 pg (25.0-34.0); Mean Corpuscular Hgb Conc 32.2 g/dL (32.0-36.0); Mean Corpuscular Volume 101.2 fL (80.0-100.0); Mean Platelet Volume 9.7 fL (9.4-12.4); Platelet Count 259 K/uL (130-400); RDW Coefficient of Variation 15.8 % (11.5-14.5); RDW Standard Deviation 57.1 fL (36.4-46.3); Red Blood Count 3.22 M/uL (4.20-5.40); White Blood Count 8.89 K/ul (4.8-10.8)
[2024-06-14 08:59] LABS: BUN Creatinine Ratio 16.7 (10-20); Basophils # (auto) 0.06 K/uL (0.00-0.20); Basophils % (auto) 0.7 %; Calcium 9.1 mg/dl (8.6-10.3); Creatinine Clr Calc Pharmacy 21.3 ml/min; Eosinophils # (auto) 0.42 K/uL (0.00-0.50); Eosinophils % (auto) 4.7 %; Immature Granulocytes # (auto) 0.64 K/uL (0.01-0.20); Immature Granulocytes % (auto) 7.2 %; Lymphocytes # (auto) 2.68 K/uL (1.20-3.40); Lymphocytes % (auto) 30.1 %; Monocytes # (auto) 1.37 K/uL (0.11-0.59); Monocytes % (auto) 15.4 %; Neutrophils # (auto) 3.72 K/uL (1.40-6.50); Neutrophils % (auto) 41.9 %
--- NOTE | 2024-06-14 08:59 | Nephrology Progress Note ---
Date of Service June 14, 2024 Assessment & Plan (1) MARY (acute kidney injury): Plan: * MARY likely due to combination of dehydration and bactrim therapy - resolved * Baseline Cr has been ~ 2.0 * Patient remains nonoliguric * Patient does have inspiratory rales. Suspect atelectasis. 06/13/24 CXR negative for overt CHF or infiltrated * Electrolyte balance remains acceptable, hyperkalemia has been corrected * Encourage oral hydration * Monitor PRP, UO (2) HTN (hypertension): Plan: * SBP remains elevated * Continue spironolactone 12.5 mg daily * Increase amlodipine to 5 mg daily * Monitor BP, BMP (3) UTI (urinary tract infection): Plan: * h/o klebsiella UTI * 06/06/24 urine culture was probable skin romulo only (4) Hyperkalemia: Plan: * Resolved (5) Weakness: Plan: * Continue PT Admission and Anticipated Discharge Date Admission Date: June 06, 2024 Subjective Ms. Taylor was evaluated in her hospital room this morning. She denied NGUYEN, angina, dyspnea. She voiced no new medical concerns Review of Systems Constitutional: no fever Eyes: no problem reported Ear, Nose, Mouth, Throat: no problem reported Respiratory: no cough and no dyspnea Cardiovascular: no chest pain Gastrointestinal: no abdominal pain Genitourinary: no dysuria Physical Exam Eyes: PERRL, conjunctivae normal, anicteric sclerae ENMT: external ear and nose normal, oropharynx normal Neck: trachea midline, no thyromegaly Respiratory: normal respiratory effort, lungs clear to auscultation Cardiovascular: Rate/Rhythm: regular rate and regular rhythm Extremities: + edema (trace LE swelling) Gastrointestinal (Abdomen): normal bowel sounds, soft, nontender, no hepatosplenomegaly Musculoskeletal: Extremities: no cyanosis and no clubbing Results & Data Vital Signs (Past 12 Hours) Vital Signs Temp Pulse Pulse Resp BP BP Pulse Ox 06/14/24 07:30 80 06/14/24 07:17 36.3 C L 81 19 185/82 H 100 06/14/24 03:01 36.9 C 79 20 156/77 H 98 06/13/24 23:56 06/13/24 23:56 80 06/13/24 23:51 36.7 C 81 22 147/66 H 95 O2 Del Method O2 Flow Rate 06/14/24 07:30 06/14/24 07:17 Nasal Cannula 2 06/14/24 03:01 Nasal Cannula 2 06/13/24 23:56 Nasal Cannula 2 06/13/24 23:56 06/13/24 23:51 Nasal Cannula 2 Laboratory Results Laboratory Results - last 24 hr 06/13/24 06/13/24 06/13/24 11:19 16:02 20:46 WBC RBC Hgb Hct MCV MCH MCHC RDW Std Deviation RDW Coeff of Shai Plt Count MPV Immature Gran % (Auto) Neut % (Auto) Lymph % (Auto) [place] % (Auto) Eos % (Auto) Baso % (Auto) Neut # (Auto) Lymph # (Auto) [place] # (Auto) Eos # (Auto) Baso # (Auto) Immature Gran # (Auto) Sodium Potassium Chloride Carbon Dioxide Anion Gap BUN Creatinine Est Cr Clr Drug Dosing eGFR BUN/Creatinine Ratio Glucose POC Glucose 183 H 147 H 203 H Calcium 06/14/24 06/14/24 07:15 07:35 WBC 8.89 RBC 3.22 L Hgb 10.5 L Hct 32.6 L MCV 101.2 H MCH 32.6 MCHC 32.2 RDW Std Deviation 57.1 H RDW Coeff of Shai 15.8 H Plt Count 259 MPV 9.7 Immature Gran % (Auto) 7.2 Neut % (Auto) 41.9 Lymph % (Auto) 30.1 [place] % (Auto) 15.4 Eos % (Auto) 4.7 Baso % (Auto) 0.7 Neut # (Auto) 3.72 Lymph # (Auto) 2.68 [place] # (Auto) 1.37 H Eos # (Auto) 0.42 Baso # (Auto) 0.06 Immature Gran # (Auto) 0.64 H Sodium 140 Potassium 4.0 Chloride 106 Carbon Dioxide 26 Anion Gap 8 BUN 35 H Creatinine 2.09 H Est Cr Clr Drug Dosing 21.3 eGFR 22.51 BUN/Creatinine Ratio 16.7 Glucose 119 H POC Glucose 127 H Calcium 9.1 PG Care Time/CCT Total # of Minutes Spent Total Time Spent with Patient: Total time spent is greater than 50% in coordination of care (as documented) at patient's floor/unit and/or counseling patient: Coding Level of Care Code 57817 SUB INP/OBS CARE 3/50MIN Diagnoses MARY (acute kidney injury) N17.9 HTN (hypertension) I10 Hypertension type: unspecified UTI (urinary tract infection) N39.0 Hyperkalemia E87.5 Weakness R53.1 (2) HTN (hypertension) Hypertension type: unspecified Qualified Code(s): I10 - Essential (primary) hypertension
[2024-06-14] MEDS: amLODIPine BESYLATE 5 MG TAB PO STA (10:20)
[2024-06-14] MEDS: LORazepam 1 MG TAB PO PRN (14:34)
[2024-06-14] MEDS: BENZONATATE 100 MG CAPSULE PO PRN (14:34)
--- NOTE | 2024-06-14 14:38 | Hospitalist Progress Note ---
Date of Service June 14, 2024 Assessment & Plan (1) MARY (acute kidney injury): Plan 89-year-old lady with PMH of PAF on Eliquis, CKD, T2DM, nonischemic cardiomyopathy [EF of 20 to 25% subsequently improved to most recent value of 60 to 65%] status post biventricular ICD, ANN intolerant to CPAP, rheumatoid arthritis, lumbar degenerative disease, CKD and chronic hypoxic respiratory failure requiring 2 L of oxygen was sent in from [place] for generalized pain and elevated blood pressure. She is being managed for the following: Hypertensive urgency: BP was 183/103 on presentation. Got Metoprolol succinate in ER. BP has been stable thereafter. Continue with home antihypertensive and as needed blood pressure medication. 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 Secondary to dehydration and Bactrim therapy Lasix is on hold and Aldactone has been continued US renal w/ no obstruction. Cr improving, Nephrology onboard, appreciate recommendation. Aldactone resumed today, lasix still on hold. Avoid nephrotoxins Has been getting cautious amount of intravenous fluid for worsening creatinine Creatinine has improved to 2.09 from 2.35 Strongly advised to drink more fluid UTI (urinary tract infection): Metabolic encephalopathy: patient appears confused in the setting of recent Bactrim use. Hold Bactrim. Continue to monitor. UCx from 05/29/24 grew Klebsiella pneumonia Per [facility] records, she has been on Bactrim since Patient still reported urinary freq at presentation, Admitting urine culture no growth Stopped bactrim as above and continue IV ceftriaxone 06/06 for now --> to diff atb, see below. Has been on intravenous Zosyn which will cover UTI and also possible aspiration pneumonia Antibiotic has been discontinued for UTI Aspiration pneumonia: Patient vomited in a.m. of 06/07, follow-up CXR with left lung base opacity. WBC peaked at 24.2K on 06/08. DC'd Rocephin and initiated Zosyn 06/08. Continue to monitor vitals and clinical status. Afebrile, wbc trending down. Pt feeling better. will complete 7-10 day antibiotic course. Chest x-ray did not show any evidence of pneumonia Zosyn has been discontinued Other chronic medical conditions: Continue with/resume home meds as and when able. Chronic hypoxic respiratory failure, on home oxygen therapy: Continue home oxygen. Stable. Atrial fibrillation: Paroxysmal A-fib, rate controlled, continue home metoprolol And Eliquis. T2DM: A1c of 6.4 in 10/05. Continue sliding scale insulin. Rheumatoid arthritis: Pain control. Continue weekly methotrexate. She has chronic generalized body pains especially in hands, feet and low back due to her arthritis. Anxiety and depression: Continue home Ativan and Seroquel Nonischemic cardiomyopathy: Continue home Toprol-XL. Lasix and Aldactone on hold due to MARY over CKD. See above. Follows [facility] cardiology. Has chronic leg edema. DVT prophylaxis: Patient on Eliquis. CODE STATUS: DNR/DNI PT/OT, CM to assist with DC planning. Discussed with the family members Admission and Anticipated Discharge Date Admission Date: June 06, 2024 Subjective 06/13/2024 The patient was seen and examined in telemetry unit in presence of the family members She has been stable and making out less urine She is on intravenous fluid and denies any significant symptoms 06/14/2024 Patient was seen and examined in telemetry unit She has been feeling much better and denies any significant symptoms except weakness She has been waiting to be placed Review of Systems Review of Systems: All systems reviewed and are unremarkable except as noted below Physical Exam Physical Exam: Lying in bed without any acute distress Constitutional: well developed, well nourished, + ill appearing and + obese Eyes: PERRL, conjunctivae normal, anicteric sclerae ENMT: external ear and nose normal, oropharynx normal Neck: trachea midline, no thyromegaly Respiratory: no respiratory distress Auscultation: lungs clear to auscultation bilaterally Cardiovascular: Rate/Rhythm: regular rate and regular rhythm; not tachycardic Heart Sounds: normal S1 and normal S2; no murmur Extremities: + edema ( trace edema bilaterally) Gastrointestinal (Abdomen): Inspection/Auscultation: normal bowel sounds; abdomen not distended Percussion/Palpation: abdomen soft; abdomen nontender Neurologic: normal touch/pain/proprioception and moves all extremities; no focal motor deficits Lymphatic: no cervical or axillary lymphadenopathy Results & Data Results & Data Vital Signs (Past 12 Hours) Vital Signs Temp Pulse Pulse Resp BP BP Pulse Ox 06/14/24 14:00 80 06/14/24 10:42 36.6 C 78 19 179/84 H 93 06/14/24 09:00 142/77 H 06/14/24 07:30 80 06/14/24 07:17 36.3 C L 81 19 185/82 H 100 06/14/24 03:01 36.9 C 79 20 156/77 H 98 O2 Del Method O2 Flow Rate 06/14/24 14:00 06/14/24 10:42 Nasal Cannula 2 06/14/24 09:00 06/14/24 07:30 06/14/24 07:17 Nasal Cannula 2 06/14/24 03:01 Nasal Cannula 2 Laboratory Results Short CBC 06/14/24 Range/Units 07:35 WBC 8.89 (4.8-10.8) K/ul Hgb 10.5 L (12.0-16.0) g/dl Hct 32.6 L (37.0-47.0) % Plt Count 259 (130-400) K/uL BMP 06/14/24 07:35 Sodium 140 Potassium 4.0 Chloride 106 Carbon Dioxide 26 BUN 35 H Creatinine 2.09 H Glucose 119 H Calcium 9.1 Medications Administered Current Inpatient Medications Acetaminophen (Acetaminophen 500 Mg Tab) 1,000 mg PO BID NIHARIKA Stop: 07/06/24 20:59 Last Admin: 06/14/24 08:27 Dose: 1,000 mg Hydrocodone Bitart/Acetaminophen (Hydrocodone/Acetaminophen 10/325 Tab) 1 tab PO TID PRN PRN Reason: Moderate pain Stop: 06/20/24 12:39 Last Admin: 06/14/24 14:34 Dose: 1 tab Amlodipine Besylate (Amlodipine Besylate 5 Mg Tab) 5 mg PO QAM NIHARIKA Stop: 07/15/24 08:59 Apixaban (Apixaban 2.5 Mg Tab) 2.5 mg PO BID NIHARIKA Stop: 07/06/24 20:59 Last Admin: 06/14/24 08:19 Dose: 2.5 mg Atorvastatin Calcium (Atorvastatin 10 Mg Tab) 10 mg PO HS NIHARIKA Stop: 07/06/24 20:59 Last Admin: 06/13/24 21:24 Dose: 10 mg Benzonatate (Benzonatate 100 Mg Capsule) 200 mg PO TID PRN PRN Reason: Cough Stop: 07/06/24 12:25 Last Admin: 06/14/24 14:34 Dose: 200 mg Buspirone HCl (Buspirone 7.5 Mg Tab) 7.5 mg PO TID NIHARIKA Stop: 07/06/24 13:59 Last Admin: 06/14/24 14:34 Dose: 7.5 mg Calcium Carbonate (Calcium Carbonate 1250mg Tab) 1 tab PO TID PRN PRN Reason: stomach acid Stop: 07/06/24 12:37 Calcium Carbonate (Calcium Carbonate 500 Mg Chewable Tab) 1,000 mg PO Q8H PRN PRN Reason: Indigestion Stop: 07/07/24 17:25 Dextrose (Dextrose 50% 50 Ml Syringe) 25 - 50 ml IV UD PRN; Protocol PRN Reason: Hypoglycemia Protocol Stop: 07/06/24 19:39 Diclofenac Sodium (Diclofenac Sod 1% Gel 100 Gm Tube) 2 gm EXT Q6H PRN; Protocol PRN Reason: pain Stop: 07/11/24 08:14 Last Admin: 06/14/24 08:17 Dose: 2 gm Docusate Sodium (Docusate Sodium 100 Mg Cap) 100 mg PO DAILY NIHARIKA Stop: 07/07/24 08:59 Last Admin: 06/14/24 08:20 Dose: 100 mg Folic Acid (Folic Acid 1 Mg Tab) 2 mg PO DAILY NIHARIKA Stop: 07/07/24 08:59 Last Admin: 06/14/24 08:19 Dose: 2 mg Furosemide (Furosemide 40 Mg Tab) 40 mg PO DAILY NIHARIKA Stop: 07/07/24 08:59 Last Admin: 06/07/24 09:49 Dose: 40 mg Gabapentin (Gabapentin 300 Mg Cap) 300 mg PO HS NIHARIKA Stop: 07/06/24 20:59 Last Admin: 06/13/24 21:25 Dose: 300 mg Gabapentin (Gabapentin 100 Mg Cap) 100 mg PO DAILY NIHARIKA Stop: 07/07/24 08:59 Last Admin: 06/14/24 08:19 Dose: 100 mg Glucagon (Glucagon For Inj 1 Mg Vial) 1 mg SQ UD PRN; Protocol PRN Reason: Hypoglycemia Protocol Stop: 07/06/24 19:39 Glucose (Glucose 40% Gel 15 Gm Tube) 15 - 30 gm PO UD PRN; Protocol PRN Reason: Hypoglycemia Protocol Stop: 07/06/24 19:39 Glucose (Glucose 10 Tab/Tube) 4 - 8 tab PO UD PRN; Protocol PRN Reason: Hypoglycemia Protocol Stop: 07/06/24 19:39 Insulin Aspart (Insulin Aspart Per Unit Charge) 0 units SC ACHS [facility] Stop: 07/06/24 12:25 Last Admin: 06/14/24 12:14 Dose: Not Given Insulin Glargine (Lantus Per Unit Charge) 25 units SQ QAM NIHARIKA Stop: 07/07/24 08:59 Last Admin: 06/14/24 08:17 Dose: 25 units Labetalol HCl (Labetalol Hcl Iv 5 Mg/Ml 20ml) 5 mg IV Q4H PRN PRN Reason: HTN Stop: 07/07/24 17:40 Lactobacillus Acidophilus (Advanced Probiotic 625 Mg Capsule) 1,250 mg PO DAILY [facility] Stop: 07/08/24 11:44 Last Admin: 06/14/24 08:19 Dose: 1,250 mg Lidocaine (Lidocaine 5% 1 Patch) 1 patch TD DAILY PRN PRN Reason: Other Stop: 07/06/24 12:40 Last Admin: 06/07/24 13:56 Dose: 1 patch Lidocaine HCl (Lidocaine Viscous 2% 15 Ml Udc) 15 ml MT TID PRN PRN Reason: for sore mouth Stop: 07/09/24 17:41 Last Admin: 06/10/24 12:31 Dose: 15 ml Lorazepam (Lorazepam 1 Mg Tab) 1 mg PO DAILY PRN PRN Reason: Anxiety Stop: 07/06/24 12:25 Last Admin: 06/14/24 14:34 Dose: 1 mg Lorazepam (Lorazepam 1 Mg Tab) 1 mg PO BID [facility] Stop: 07/06/24 20:59 Last Admin: 06/14/24 08:20 Dose: 1 mg Metoprolol Succinate (Metoprolol Succ 50mg Ext Rel Tab) 200 mg PO DAILY [facility] Stop: 07/07/24 08:59 Last Admin: 06/14/24 08:18 Dose: 200 mg Miscellaneous (Carbohydrates For Hypoglycemia ) 15 - 30 gm PO UD PRN PRN Reason: Hypoglycemia Protocol Stop: 07/06/24 19:39 Montelukast Sodium (Montelukast Sodium 10 Mg Tablet) 10 mg PO QPM NIHARIKA Stop: 07/06/24 20:59 Last Admin: 06/13/24 21:22 Dose: 10 mg Multivitamins/Minerals (Cerovite Adv Formula Tab) 1 tab PO BID NIHARIKA Stop: 07/06/24 20:59 Last Admin: 06/14/24 08:18 Dose: 1 tab Ondansetron HCl (Ondansetron 4 Mg Od Tab) 4 mg PO DAILY PRN PRN Reason: Nausea And Vomiting Stop: 07/06/24 12:25 Pantoprazole Sodium (Pantoprazole 40 Mg Tab) 40 mg PO BID NIHARIKA Stop: 07/06/24 20:59 Last Admin: 06/14/24 08:19 Dose: 40 mg Polyethylene Glycol (Polyethylene (Miralax) 17 Gm Pack) 17 gm PO DAILY NIHARIKA Stop: 07/12/24 15:59 Last Admin: 06/14/24 08:17 Dose: 17 gm Prednisone (Prednisone 5 Mg Tab) 5 mg PO QAM NIHARIKA Stop: 06/17/24 09:01 Last Admin: 06/14/24 08:19 Dose: 5 mg Quetiapine Fumarate (Quetiapine Fumarate 25 Mg Tablet) 25 mg PO HS NIHARIKA Stop: 07/06/24 20:59 Last Admin: 06/13/24 21:23 Dose: 25 mg Simethicone (Simethicone 80 Mg Chew) 160 mg PO TIDM NIHARIKA Stop: 07/06/24 13:59 Last Admin: 06/14/24 13:05 Dose: Not Given Spironolactone (Spironolactone 12.5 Mg Tab) 12.5 mg PO DAILY NIHARIKA Stop: 07/12/24 08:59 Last Admin: 06/14/24 08:19 Dose: 12.5 mg Venlafaxine HCl (Venlafaxine Hcl Xr 75 Mg Capxr) 75 mg PO HS NIHARIKA Stop: 07/06/24 20:59 Last Admin: 06/13/24 21:24 Dose: 75 mg Vitamin B Complex (Vitamin B Complex Tab) 1 tab PO DAILY NIHARIKA Stop: 07/07/24 08:59 Last Admin: 06/14/24 08:19 Dose: 1 tab Vitamin D (Cholecalciferol 25 Mcg (1000 Units) Tab) 25 mcg PO DAILY NIHARIKA Stop: 07/07/24 08:59 Last Admin: 06/14/24 08:19 Dose: 25 mcg
[2024-06-15 07:27] LABS: Basophils # (auto) 0.07 K/uL (0.00-0.20); Basophils % (auto) 0.6 %; Eosinophils % (auto) 3.4 %; Hematocrit (blood only) 33.5 % (37.0-47.0); Hemoglobin 10.6 g/dl (12.0-16.0); Immature Granulocytes # (auto) 0.55 K/uL (0.01-0.20); Immature Granulocytes % (auto) 4.6 %; Lymphocytes # (auto) 2.92 K/uL (1.20-3.40); Lymphocytes % (auto) 24.7 %; Mean Corpuscular Hemoglobin 31.5 pg (25.0-34.0); Mean Corpuscular Hgb Conc 31.6 g/dL (32.0-36.0); Mean Corpuscular Volume 99.7 fL (80.0-100.0); Mean Platelet Volume 9.3 fL (9.4-12.4); Monocytes # (auto) 1.34 K/uL (0.11-0.59); Monocytes % (auto) 11.3 %; Neutrophils # (auto) 6.55 K/uL (1.40-6.50); Neutrophils % (auto) 55.4 %; Platelet Count 312 K/uL (130-400); RDW Coefficient of Variation 15.5 % (11.5-14.5); RDW Standard Deviation 55.8 fL (36.4-46.3); Red Blood Count 3.36 M/uL (4.20-5.40); White Blood Count 11.83 K/ul (4.8-10.8)
[2024-06-15 08:01] LABS: BUN Creatinine Ratio 19.5 (10-20); Calcium 9.1 mg/dl (8.6-10.3); Creatinine Clr Calc Pharmacy 26.3 ml/min; Potassium 4.1 mmol/L (3.5-5.1)
--- NOTE | 2024-06-15 08:30 | Nephrology Progress Note ---
Date of Service June 15, 2024 Assessment & Plan (1) MARY (acute kidney injury): Plan: * MARY likely due to combination of dehydration and bactrim therapy - resolved * Hyperkalemia - resolved * Baseline Cr has been ~ 2.0 * Patient remains nonoliguric * Patient does have inspiratory rales. Suspect atelectasis. 06/13/24 CXR negative for overt CHF or infiltrate * Electrolyte balance remains acceptable, hyperkalemia has been corrected * Encourage oral hydration * No further nephrology evaluation needed at this time. Will sign off. I have instructed my office staff to contact long-term and arrange outpatient follow up w/ Dr. Smith in 7-14 days (2) HTN (hypertension): Plan: * SBP is mildly improved * Continue spironolactone 12.5 mg daily * Continue amlodipine 5 mg daily * May consider restarting low dose diuretic as outpatient * Monitor BP, BMP (3) UTI (urinary tract infection): Plan: * h/o klebsiella UTI * 06/06/24 urine culture was probable skin romulo only (4) Hyperkalemia: Plan: * Resolved (5) Weakness: Plan: * Continue PT Admission and Anticipated Discharge Date Admission Date: June 06, 2024 Subjective Ms. Taylor was evaluated in her hospital room this morning. She denied NGUYEN, angina, dyspnea. She voiced no new medical concerns Review of Systems Constitutional: no fever Eyes: no problem reported Ear, Nose, Mouth, Throat: no problem reported Respiratory: no cough and no dyspnea Cardiovascular: no chest pain Gastrointestinal: no abdominal pain Genitourinary: no dysuria Physical Exam Eyes: PERRL, conjunctivae normal, anicteric sclerae ENMT: external ear and nose normal, oropharynx normal Neck: trachea midline, no thyromegaly Respiratory: normal respiratory effort, lungs clear to auscultation Cardiovascular: Rate/Rhythm: regular rate and regular rhythm Extremities: + edema (trace LE swelling) Gastrointestinal (Abdomen): normal bowel sounds, soft, nontender, no hepatosplenomegaly Musculoskeletal: Extremities: no cyanosis and no clubbing Results & Data Vital Signs (Past 12 Hours) Vital Signs Temp Pulse Pulse Resp BP Pulse Ox O2 Del Method 06/15/24 03:20 36.3 C L 90 18 185/89 H 97 Nasal Cannula 06/14/24 23:36 36.5 C 80 17 152/81 H 96 Nasal Cannula 06/14/24 23:27 80 06/14/24 23:13 Nasal Cannula O2 Flow Rate 06/15/24 03:20 2 06/14/24 23:36 2 06/14/24 23:27 06/14/24 23:13 2 Laboratory Results Laboratory Results - last 24 hr 06/14/24 06/14/24 06/14/24 07:35 10:53 16:04 WBC 8.89 RBC 3.22 L Hgb 10.5 L Hct 32.6 L MCV 101.2 H MCH 32.6 MCHC 32.2 RDW Std Deviation 57.1 H RDW Coeff of Shai 15.8 H Plt Count 259 MPV 9.7 Immature Gran % (Auto) 7.2 Neut % (Auto) 41.9 Lymph % (Auto) 30.1 Teller % (Auto) 15.4 Eos % (Auto) 4.7 Baso % (Auto) 0.7 Neut # (Auto) 3.72 Lymph # (Auto) 2.68 Teller # (Auto) 1.37 H Eos # (Auto) 0.42 Baso # (Auto) 0.06 Immature Gran # (Auto) 0.64 H Sodium 140 Potassium 4.0 Chloride 106 Carbon Dioxide 26 Anion Gap 8 BUN 35 H Creatinine 2.09 H Est Cr Clr Drug Dosing 21.3 eGFR 22.51 BUN/Creatinine Ratio 16.7 Glucose 119 H POC Glucose 97 165 H Calcium 9.1 06/14/24 06/15/24 06/15/24 21:08 06:40 07:11 WBC 11.83 H RBC 3.36 L Hgb 10.6 L Hct 33.5 L MCV 99.7 MCH 31.5 MCHC 31.6 L RDW Std Deviation 55.8 H RDW Coeff of Shai 15.5 H Plt Count 312 MPV 9.3 L Immature Gran % (Auto) 4.6 Neut % (Auto) 55.4 Lymph % (Auto) 24.7 Teller % (Auto) 11.3 Eos % (Auto) 3.4 Baso % (Auto) 0.6 Neut # (Auto) 6.55 H Lymph # (Auto) 2.92 Teller # (Auto) 1.34 H Eos # (Auto) 0.40 Baso # (Auto) 0.07 Immature Gran # (Auto) 0.55 H Sodium 141 Potassium 4.1 Chloride 107 Carbon Dioxide 29 Anion Gap 5 BUN 33 H Creatinine 1.69 H D Est Cr Clr Drug Dosing 26.3 eGFR 29.05 BUN/Creatinine Ratio 19.5 Glucose 98 POC Glucose 126 H 98 Calcium 9.1 PG Care Time/CCT Total # of Minutes Spent Total Time Spent with Patient: Total time spent is greater than 50% in coordination of care (as documented) at patient's floor/unit and/or counseling patient: Coding Level of Care Code 16490 SUB INP/OBS CARE 3/50MIN Diagnoses MARY (acute kidney injury) N17.9 HTN (hypertension) I10 Hypertension type: unspecified UTI (urinary tract infection) N39.0 Hyperkalemia E87.5 Weakness R53.1 (2) HTN (hypertension) Hypertension type: unspecified Qualified Code(s): I10 - Essential (primary) hypertension
[2024-06-15] MEDS: CALCIUM CARBONATE 500 MG CHEWABLE TAB PO PRN (09:16)
[2024-06-15] MEDS: amLODIPine BESYLATE 5 MG TAB PO SCH (09:18)
--- NOTE | 2024-06-15 15:57 | Hospitalist Progress Note ---
Date of Service June 15, 2024 Assessment & Plan (1) MARY (acute kidney injury): Plan 89-year-old lady with PMH of PAF on Eliquis, CKD, T2DM, nonischemic cardiomyopathy [EF of 20 to 25% subsequently improved to most recent value of 60 to 65%] status post biventricular ICD, ANN intolerant to CPAP, rheumatoid arthritis, lumbar degenerative disease, CKD and chronic hypoxic respiratory failure requiring 2 L of oxygen was sent in from [place] for generalized pain and elevated blood pressure. She is being managed for the following: Hypertensive urgency: BP was 183/103 on presentation. Got Metoprolol succinate in ER. BP has been stable thereafter. Continue with home antihypertensive and as needed blood pressure medication. BP is reasonably controlled with current medications on spironolactone 12.5 mg daily and amlodipine 2.5 mg daily on top follow-up metoprolol succinate 200 mg daily Blood pressure remains on the upper side at 179/84 and amlodipine has been increased to 5 mg once daily by the call center dispatcher Will monitor Blood pressure remains on the upper side at 173/83 and will observe for now Acute worsening of stage 4 chronic kidney disease: Admitting creatinine of 2.55, baseline creatinine around 1.7-1.9. Secondary to dehydration and Bactrim therapy Lasix is on hold and Aldactone has been continued US renal w/ no obstruction. Cr improving, Nephrology onboard, appreciate recommendation. Aldactone resumed today, lasix still on hold. Avoid nephrotoxins Has been getting cautious amount of intravenous fluid for worsening creatinine Creatinine has improved to 2.09 from 2.35 Strongly advised to drink more fluid Kidney function has been improving creatinine is reduced to 1.69 today UTI (urinary tract infection): Metabolic encephalopathy: patient appears confused in the setting of recent Bactrim use. Hold Bactrim. Continue to monitor. UCx from 05/29/24 grew Klebsiella pneumonia Per [facility] records, she has been on Bactrim since Patient still reported urinary freq at presentation, Admitting urine culture no growth Stopped bactrim as above and continue IV ceftriaxone 06/06 for now --> to diff atb, see below. Has been on intravenous Zosyn which will cover UTI and also possible aspiration pneumonia Antibiotic has been discontinued for UTI Aspiration pneumonia: Patient vomited in a.m. of 06/07, follow-up CXR with left lung base opacity. WBC peaked at 24.2K on 06/08. DC'd Rocephin and initiated Zosyn 06/08. Continue to monitor vitals and clinical status. Afebrile, wbc trending down. Pt feeling better. will complete 7-10 day antibiotic course. Chest x-ray did not show any evidence of pneumonia Zosyn has been discontinued ,no signs and or symptoms of infection Other chronic medical conditions: Continue with/resume home meds as and when able. Chronic hypoxic respiratory failure, on home oxygen therapy: Continue home oxygen. Stable. Atrial fibrillation: Paroxysmal A-fib, rate controlled, continue home metoprolol And Eliquis. T2DM: A1c of 6.4 in 10/05. Continue sliding scale insulin. Rheumatoid arthritis: Pain control. Continue weekly methotrexate. She has chronic generalized body pains especially in hands, feet and low back due to her arthritis. Anxiety and depression: Continue home Ativan and Seroquel Nonischemic cardiomyopathy: Continue home Toprol-XL. Lasix and Aldactone on hold due to MARY over CKD. See above. Follows [facility] cardiology. Has chronic leg edema. DVT prophylaxis: Patient on Eliquis. CODE STATUS: DNR/DNI PT/OT, CM to assist with DC planning. Discussed with the family members Discussed with the family members likely transfer tomorrow Admission and Anticipated Discharge Date Admission Date: June 06, 2024 Subjective 06/13/2024 The patient was seen and examined in telemetry unit in presence of the family members She has been stable and making out less urine She is on intravenous fluid and denies any significant symptoms 06/14/2024 Patient was seen and examined in telemetry unit She has been feeling much better and denies any significant symptoms except weakness She has been waiting to be placed 06/15/2024 The patient was seen and examined in telemetry unit She has been much better today without any symptoms except weakness Noted to have minimally elevated white count of more than 11,000 The family members and daughter wanted to have the white count to be trending down before discharge Review of Systems Review of Systems: All systems reviewed and are unremarkable except as noted below Physical Exam Physical Exam: Lying in bed without any acute distress Constitutional: well developed, well nourished, + ill appearing and + obese Eyes: PERRL, conjunctivae normal, anicteric sclerae ENMT: external ear and nose normal, oropharynx normal Neck: trachea midline, no thyromegaly Respiratory: no respiratory distress Auscultation: lungs clear to auscultation bilaterally Cardiovascular: Rate/Rhythm: regular rate and regular rhythm; not tachycardic Heart Sounds: normal S1 and normal S2; no murmur Extremities: + edema ( trace edema bilaterally) Gastrointestinal (Abdomen): Inspection/Auscultation: normal bowel sounds; abdomen not distended Percussion/Palpation: abdomen soft; abdomen nontender Neurologic: normal touch/pain/proprioception and moves all extremities; no focal motor deficits Lymphatic: no cervical or axillary lymphadenopathy Results & Data Results & Data Vital Signs (Past 12 Hours) Vital Signs Temp Pulse Resp BP Pulse Ox O2 Del Method O2 Flow Rate 06/15/24 10:38 Nasal Cannula 2 06/15/24 10:34 36.8 C 81 16 173/83 H 94 Nasal Cannula 06/15/24 08:00 36.6 C 80 20 185/84 H 98 Nasal Cannula Laboratory Results Short CBC 06/15/24 Range/Units 06:40 WBC 11.83 H (4.8-10.8) K/ul Hgb 10.6 L (12.0-16.0) g/dl Hct 33.5 L (37.0-47.0) % Plt Count 312 (130-400) K/uL BMP 06/15/24 06:40 Sodium 141 Potassium 4.1 Chloride 107 Carbon Dioxide 29 BUN 33 H Creatinine 1.69 H D Glucose 98 Calcium 9.1 Medications Administered Current Inpatient Medications Acetaminophen (Acetaminophen 500 Mg Tab) 1,000 mg PO BID [facility] Stop: 07/06/24 20:59 Last Admin: 06/15/24 09:25 Dose: 1,000 mg Hydrocodone Bitart/Acetaminophen (Hydrocodone/Acetaminophen 10/325 Tab) 1 tab PO TID PRN PRN Reason: Moderate pain Stop: 06/20/24 12:39 Last Admin: 06/15/24 09:17 Dose: 1 tab Amlodipine Besylate (Amlodipine Besylate 5 Mg Tab) 5 mg PO QAM [facility] Stop: 07/15/24 08:59 Last Admin: 06/15/24 09:18 Dose: 5 mg Apixaban (Apixaban 2.5 Mg Tab) 2.5 mg PO BID [facility] Stop: 07/06/24 20:59 Last Admin: 06/15/24 09:20 Dose: 2.5 mg Atorvastatin Calcium (Atorvastatin 10 Mg Tab) 10 mg PO HS [facility] Stop: 07/06/24 20:59 Last Admin: 06/14/24 21:57 Dose: 10 mg Benzonatate (Benzonatate 100 Mg Capsule) 200 mg PO TID PRN PRN Reason: Cough Stop: 07/06/24 12:25 Last Admin: 06/15/24 09:17 Dose: 200 mg Buspirone HCl (Buspirone 7.5 Mg Tab) 7.5 mg PO TID [facility] Stop: 07/06/24 13:59 Last Admin: 06/15/24 09:19 Dose: 7.5 mg Calcium Carbonate (Calcium Carbonate 1250mg Tab) 1 tab PO TID PRN PRN Reason: stomach acid Stop: 07/06/24 12:37 Calcium Carbonate (Calcium Carbonate 500 Mg Chewable Tab) 1,000 mg PO Q8H PRN PRN Reason: Indigestion Stop: 07/07/24 17:25 Last Admin: 06/15/24 09:16 Dose: 1,000 mg Dextrose (Dextrose 50% 50 Ml Syringe) 25 - 50 ml IV UD PRN; Protocol PRN Reason: Hypoglycemia Protocol Stop: 07/06/24 19:39 Diclofenac Sodium (Diclofenac Sod 1% Gel 100 Gm Tube) 2 gm EXT Q6H PRN; Protocol PRN Reason: pain Stop: 07/11/24 08:14 Last Admin: 06/14/24 08:17 Dose: 2 gm Docusate Sodium (Docusate Sodium 100 Mg Cap) 100 mg PO DAILY [facility] Stop: 07/07/24 08:59 Last Admin: 06/15/24 09:17 Dose: 100 mg Folic Acid (Folic Acid 1 Mg Tab) 2 mg PO DAILY [facility] Stop: 07/07/24 08:59 Last Admin: 06/15/24 09:22 Dose: 2 mg Furosemide (Furosemide 40 Mg Tab) 40 mg PO DAILY [facility] Stop: 07/07/24 08:59 Last Admin: 06/07/24 09:49 Dose: 40 mg Gabapentin (Gabapentin 300 Mg Cap) 300 mg PO HS [facility] Stop: 07/06/24 20:59 Last Admin: 06/14/24 21:57 Dose: 300 mg Gabapentin (Gabapentin 100 Mg Cap) 100 mg PO DAILY [facility] Stop: 07/07/24 08:59 Last Admin: 06/15/24 09:21 Dose: 100 mg Glucagon (Glucagon For Inj 1 Mg Vial) 1 mg SQ UD PRN; Protocol PRN Reason: Hypoglycemia Protocol Stop: 07/06/24 19:39 Glucose (Glucose 40% Gel 15 Gm Tube) 15 - 30 gm PO UD PRN; Protocol PRN Reason: Hypoglycemia Protocol Stop: 07/06/24 19:39 Glucose (Glucose 10 Tab/Tube) 4 - 8 tab PO UD PRN; Protocol PRN Reason: Hypoglycemia Protocol Stop: 07/06/24 19:39 Insulin Aspart (Insulin Aspart Per Unit Charge) 0 units SC ACHS [facility] Stop: 07/06/24 12:25 Last Admin: 06/15/24 11:54 Dose: 8 units Insulin Glargine (Lantus Per Unit Charge) 25 units SQ QAM [facility] Stop: 07/07/24 08:59 Last Admin: 06/15/24 09:13 Dose: 25 units Labetalol HCl (Labetalol Hcl Iv 5 Mg/Ml 20ml) 5 mg IV Q4H PRN PRN Reason: HTN Stop: 07/07/24 17:40 Lactobacillus Acidophilus (Advanced Probiotic 625 Mg Capsule) 1,250 mg PO DAILY [facility] Stop: 07/08/24 11:44 Last Admin: 06/15/24 09:19 Dose: 1,250 mg Lidocaine (Lidocaine 5% 1 Patch) 1 patch TD DAILY PRN PRN Reason: Other Stop: 07/06/24 12:40 Last Admin: 06/07/24 13:56 Dose: 1 patch Lidocaine HCl (Lidocaine Viscous 2% 15 Ml Udc) 15 ml MT TID PRN PRN Reason: for sore mouth Stop: 07/09/24 17:41 Last Admin: 06/10/24 12:31 Dose: 15 ml Lorazepam (Lorazepam 1 Mg Tab) 1 mg PO DAILY PRN PRN Reason: Anxiety Stop: 07/06/24 12:25 Last Admin: 06/14/24 14:34 Dose: 1 mg Lorazepam (Lorazepam 1 Mg Tab) 1 mg PO BID [facility] Stop: 07/06/24 20:59 Last Admin: 06/15/24 09:25 Dose: 1 mg Metoprolol Succinate (Metoprolol Succ 50mg Ext Rel Tab) 200 mg PO DAILY [facility] Stop: 07/07/24 08:59 Last Admin: 06/15/24 09:20 Dose: 200 mg Miscellaneous (Carbohydrates For Hypoglycemia ) 15 - 30 gm PO UD PRN PRN Reason: Hypoglycemia Protocol Stop: 07/06/24 19:39 Montelukast Sodium (Montelukast Sodium 10 Mg Tablet) 10 mg PO QPM [facility] Stop: 07/06/24 20:59 Last Admin: 06/14/24 21:58 Dose: 10 mg Multivitamins/Minerals (Cerovite Adv Formula Tab) 1 tab PO BID [facility] Stop: 07/06/24 20:59 Last Admin: 06/15/24 09:19 Dose: 1 tab Ondansetron HCl (Ondansetron 4 Mg Od Tab) 4 mg PO DAILY PRN PRN Reason: Nausea And Vomiting Stop: 07/06/24 12:25 Pantoprazole Sodium (Pantoprazole 40 Mg Tab) 40 mg PO BID [facility] Stop: 07/06/24 20:59 Last Admin: 06/15/24 09:20 Dose: 40 mg Polyethylene Glycol (Polyethylene (Miralax) 17 Gm Pack) 17 gm PO DAILY [facility] Stop: 07/12/24 15:59 Last Admin: 06/15/24 09:17 Dose: 17 gm Prednisone (Prednisone 5 Mg Tab) 5 mg PO QAM [facility] Stop: 06/17/24 09:01 Last Admin: 06/15/24 09:22 Dose: 5 mg Quetiapine Fumarate (Quetiapine Fumarate 25 Mg Tablet) 25 mg PO HS [facility] Stop: 07/06/24 20:59 Last Admin: 06/14/24 21:57 Dose: 25 mg Simethicone (Simethicone 80 Mg Chew) 160 mg PO TIDM [facility] Stop: 07/06/24 13:59 Last Admin: 06/15/24 11:54 Dose: 160 mg Spironolactone (Spironolactone 12.5 Mg Tab) 12.5 mg PO DAILY [facility] Stop: 07/12/24 08:59 Last Admin: 06/15/24 09:23 Dose: 12.5 mg Venlafaxine HCl (Venlafaxine Hcl Xr 75 Mg Capxr) 75 mg PO HS [facility] Stop: 07/06/24 20:59 Last Admin: 06/14/24 21:57 Dose: 75 mg Vitamin B Complex (Vitamin B Complex Tab) 1 tab PO DAILY [facility] Stop: 07/07/24 08:59 Last Admin: 06/15/24 09:19 Dose: 1 tab Vitamin D (Cholecalciferol 25 Mcg (1000 Units) Tab) 25 mcg PO DAILY [facility] Stop: 07/07/24 08:59 Last Admin: 06/15/24 09:19 Dose: 25 mcg
[2024-06-16 08:04] LABS: Basophils # (auto) 0.09 K/uL (0.00-0.20); Basophils % (auto) 0.7 %; Eosinophils # (auto) 0.36 K/uL (0.00-0.50); Eosinophils % (auto) 2.9 %; Hematocrit (blood only) 33.6 % (37.0-47.0); Hemoglobin 10.7 g/dl (12.0-16.0); Immature Granulocytes # (auto) 0.43 K/uL (0.01-0.20); Immature Granulocytes % (auto) 3.5 %; Lymphocytes # (auto) 2.85 K/uL (1.20-3.40); Mean Corpuscular Hemoglobin 31.8 pg (25.0-34.0); Mean Corpuscular Hgb Conc 31.8 g/dL (32.0-36.0); Mean Platelet Volume 9.2 fL (9.4-12.4); Monocytes # (auto) 1.27 K/uL (0.11-0.59); Monocytes % (auto) 10.3 %; Neutrophils # (auto) 7.37 K/uL (1.40-6.50); Neutrophils % (auto) 59.6 %; Platelet Count 331 K/uL (130-400); RDW Coefficient of Variation 15.4 % (11.5-14.5); RDW Standard Deviation 56.1 fL (36.4-46.3); Red Blood Count 3.36 M/uL (4.20-5.40); White Blood Count 12.37 K/ul (4.8-10.8)
[2024-06-16] MEDS: hydrALAZINE HCL 20 MG/ML VIAL IV STA (09:00)
[2024-06-16] MEDS: ALUMINUM/MAGNESIUM/SIMETH (MAALOX MAX) 30 ML UDC ONE (11:20)
--- NOTE | 2024-06-16 14:25 | Cardiology Consultation ---
Date of Consultation June 16, 2024 Assessment & Plan (1) Atrial fibrillation: (2) Biventricular ICD (implantable cardioverter-defibrillator) in place: (3) Chronic systolic congestive heart failure: Plan 1. Atrial Fibrillation - Patient on Eliquis and Metoprolol. Rate and Rhythm Controlled. Continue Eliquis and Metoprolol - Recent EKG done on 06/07/2024: Atrial Sensed Ventricular Paced Rhythm, and Biventricular Pacemaker detected. 2. Biventricular ICD in place -Device was checked on 03/06/24 and was normal. 3. Chronic Systolic Heart Failure - Echocardiogram on 06/01/23 shows normal left ventricular size and systolic function. EF 60 to 65%. No regional wall motion abnormalities. Severe concentric left ventricular hypertrophy, Mild left atrial dilation , Sclerotic aortic valve without significant stenosis and Normal estimated right ventricular systolic pressure. - Patient states no shortness of breath, cough and palpitation -Lasix on hold due to MARY. - Continue Aldactone 12.5 mg PO Daily. Supervising Physician Co-Signing Physician Notes Patient seen and examined. Agree with assessment and plan as outlined by Dr. Villaseñor. Impression 1. Paroxysmal atrial fibrillation -Currently in sinus rhythm. -Continue rate control and long-term anticoagulation. 2. Chronic diastolic CHF -Well compensated at this time. 3. Biventricular ICD -Functioning normally when checked back in February. History of Present Illness Reason for Consultation: Atrial Fibrillation, CHF Attending Physician: Emely Valladares MD History of Present Illness 89 year old woman with history of Paroxysmal Afib on eliquis, CKD, DM2, Nonischemic cardiomyopathy (EF 20-25% subsequently improved to most recent value of 60-65%) s/p biventricular ICD, ANN intolerant to CPAP, rheumatoid arthritis, CKD, and chronic hypoxic respiratory failure requiring 2L of O2, lumbar degenerative disease who was sent in from [facility] for generalized pain and elevated blood pressure. Patient reported that she has chronic generalized body pains especially in hands, feet and low back due to her arthritis. She also reported peripheral neuropathy with paresthesia. Patient was admitted as she was experiencing increased body ache and was not feeling well overall. She also had elevated blood pressure on presentation. She reports no fever, chills, nausea, vomiting, abd pain, diarrhea. She uses oxygen at 2L/min chronically. She also has chronic leg swelling and uses wheel chair to ambulate Allergies Allergy/AdvReac Type Severity Reaction Status Date / Time amiodarone AdvReac Intermediate gi distress Verified 06/02/24 13:43 aspirin AdvReac Intermediate history of Verified 06/02/24 13:43 ulcers nortriptyline AdvReac Unknown DOESN'T Verified 06/02/24 13:43 REMEMBER Home Medications Medication Instructions Recorded Confirmed Type apixaban 2.5 mg tablet (Eliquis) 2.5 mg PO BID 05/30/23 06/06/24 History atorvastatin 10 mg tablet 10 mg PO HS 05/30/23 06/06/24 History benzonatate 200 mg capsule 200 mg PO TID PRN Cough 05/30/23 06/06/24 History cholecalciferol (vitamin D3) 50 2,000 unit PO DAILY 05/30/23 06/06/24 History mcg (2,000 unit) capsule (Vitamin D3) folic acid 1 mg tablet 2 mg PO DAILY 05/30/23 06/06/24 History loperamide 2 mg tablet 2 mg PO DIRECTED PRN Diarrhea 05/30/23 06/06/24 History methotrexate sodium 2.5 mg tablet 5 mg PO .Wednesday05/30/23 06/06/24 History metoprolol succinate 200 mg 200 mg PO DAILY 05/30/23 06/06/24 History tablet,extended release 24 hr montelukast 10 mg tablet 10 mg PO QPM 05/30/23 06/06/24 History pantoprazole 40 mg tablet,delayed 40 mg PO BID 05/30/23 06/06/24 History release spironolactone 25 mg tablet 25 mg PO 3XWK 05/30/23 06/06/24 History vitamin B complex 1 tab PO DAILY 05/30/23 06/06/24 History lidocaine 4 % topical patch 1 patch topical DAILY PRN Other 08/26/23 06/06/24 History (AsperFlex (lidocaine)) furosemide 40 mg tablet (Lasix) 40 mg PO DAILY 09/13/23 06/06/24 History calcium carbonate (Antacid Ext Str 300 mg PO TID PRN stomach acid 10/27/23 06/06/24 History (calcium carb)) quetiapine 25 mg tablet 25 mg PO HS 10/27/23 06/06/24 History gabapentin 300 mg capsule 300 mg PO HS 12/15/23 06/06/24 History insulin glargine 100 unit/mL (3 25 unit subcut QAM 12/15/23 06/06/24 History mL) subcutaneous pen (Lantus Solostar U-100 Insulin) acetaminophen 500 mg tablet 1,000 mg PO BID 03/09/24 06/06/24 History buspirone 7.5 mg tablet 7.5 mg PO TID 03/09/24 06/06/24 History hydrocodone 10 mg-acetaminophen 1 tab PO TID Moderate Pain (Scale 03/09/24 06/06/24 History 300 mg tablet Score 5-6) lorazepam 1 mg tablet 1 mg PO BID 03/09/24 06/06/24 History lorazepam 1 mg tablet 1 mg PO DAILY PRN Anxiety 03/09/24 06/06/24 History multivitamin (Daily-Kerry tablet) 1 tab PO DAILY 03/09/24 06/06/24 History venlafaxine 75 mg capsule,extended 75 mg PO HS 03/09/24 06/06/24 History release 24 hr vit C 250 mg-vit E 90 mg-zinc 40 1 tab PO BID 03/09/24 06/06/24 History mg-copper 1 [id number] capsule (PreserVision AREDS-2) docusate sodium 100 mg capsule 100 mg PO DAILY 04/05/24 06/06/24 History (Colace) ondansetron 4 mg disintegrating 4 mg PO .daily prn #30 tabs 04/05/24 06/06/24 Rx tablet polyethylene glycol 3350 17 gram 17 g PO DAILY PRN Constipation #30 04/05/24 06/06/24 Rx oral powder packet (Miralax) ea simethicone 180 mg capsule 180 mg PO TID 30 days #90 caps 04/05/24 06/06/24 Rx (Phazyme) gabapentin 100 mg capsule 100 mg PO DAILY 04/06/24 06/06/24 History sulfamethoxazole 800 1 tab PO BID 06/06/24 06/06/24 History mg-trimethoprim 160 mg tablet (Bactrim DS) Patient History Medical History Chronic diarrhea Degenerative disc disease Diabetes mellitus, type 2 Hx of squamous cell carcinoma CARRILLO (dyspnea on exertion) History of basal cell carcinoma GERD without esophagitis PAC (premature atrial contraction) Third degree AV block Surgical History History of anesthesia reaction CONFUSION WITH GALLBLADDER REMOVAL, AWARENESS DURING COLONOSCOPY History of esophagogastroduodenoscopy (EGD) History of colonoscopy History of tooth extraction History of cataract surgery RT/LEFT S/P tubal ligation S/P total knee arthroplasty RT/LEFT S/P cholecystectomy Family History Father Heart disease Mother Diabetes Heart disease Myocardial infarction Family history of diabetes mellitus Grandfather (Maternal) Prostate cancer Family history of diabetes mellitus Other Family history non-contributory No family history of adverse response to anesthesia Denies family history of Ovarian cancer Breast cancer Colorectal cancer Social History Smoking Status: Never smoker Second Hand Exposure: No; Do You Dip or Chew Tobacco: Yes; Hx Alcohol Use: No Hx Substance Use: No Preferred Language: Maltese Communication Ability: Effective Communication Ability Comment: pt does have earring aids Visual Impairment: No Limitations Hearing Ability: Use of Hearing Aid Roofing Technician Required: No Beliefs That Will Affect Care: None marital status: Single Current Living Situation: Personal Care Facility Current Living Situation Comment: [facility] current occupational status: retired Feels Safe at Home: Yes Childhood Exposure to Second-Hand Smoke: Yes Diet: regular Dental Care, Regularly: Yes Physical Activity Frequency: Does not Exercise Seatbelt Use: always Sunscreen Use: Yes Assistive Devices: Walker and Wheelchair Review of Systems Review of Systems: As per HPI Physical Exam Physical Exam: Lying in bed without any acute distress Constitutional: well developed, well nourished, + ill appearing and + obese Eyes: PERRL, conjunctivae normal, anicteric sclerae ENMT: external ear and nose normal, oropharynx normal Neck: trachea midline, no thyromegaly Respiratory: no respiratory distress Auscultation: lungs clear to auscultation bilaterally Cardiovascular: Rate/Rhythm: regular rate and regular rhythm; not tachycardic Heart Sounds: normal S1 and normal S2; no murmur Extremities: + edema ( trace edema bilaterally) Gastrointestinal (Abdomen): Inspection/Auscultation: normal bowel sounds; abdomen not distended Percussion/Palpation: abdomen soft; abdomen nontender Neurologic: normal touch/pain/proprioception and moves all extremities; no focal motor deficits Lymphatic: no cervical or axillary lymphadenopathy Results & Data Vital Signs (Past 12 Hours) Vital Signs Temp Pulse Resp BP Pulse Ox O2 Del Method O2 Flow Rate 06/16/24 11:11 Nasal Cannula 2 06/16/24 10:57 36.4 C L 84 18 135/80 97 Nasal Cannula 1 06/16/24 09:32 168/77 H 06/16/24 07:34 36.3 C L 80 18 199/101 H 98 Nasal Cannula 1 06/16/24 02:50 37 C 78 18 147/76 H 94 Nasal Cannula 1 PG Care Time/CCT Total # of Minutes Spent Total Time Spent with Patient: Total time spent is greater than 50% in coordination of care (as documented) at patient's floor/unit and/or counseling patient: Coding Level of Care Code 55640 INT INP/OBS CARE 375MIN Diagnoses Atrial fibrillation I48.91 Biventricular ICD (implantable cardioverter-defibrillator) in place Z95.810 Chronic systolic congestive heart failure I50.22
--- NOTE | 2024-06-16 15:57 | Hospitalist Progress Note ---
Date of Service June 16, 2024 Assessment & Plan (1) MARY (acute kidney injury): Plan 89-year-old lady with PMH of PAF on Eliquis, CKD, T2DM, nonischemic cardiomyopathy [EF of 20 to 25% subsequently improved to most recent value of 60 to 65%] status post biventricular ICD, ANN intolerant to CPAP, rheumatoid arthritis, lumbar degenerative disease, CKD and chronic hypoxic respiratory failure requiring 2 L of oxygen was sent in from [place] for generalized pain and elevated blood pressure. She is being managed for the following: Hypertensive urgency: BP was 183/103 on presentation. Got Metoprolol succinate in ER. BP has been stable thereafter. Continue with home antihypertensive and as needed blood pressure medication. BP is reasonably controlled with current medications on spironolactone 12.5 mg daily and amlodipine 2.5 mg daily on top follow-up metoprolol succinate 200 mg daily Blood pressure remains on the upper side at 179/84 and amlodipine has been increased to 5 mg once daily by the groover runner Will monitor Blood pressure remains on the upper side at 173/83 and will observe for now Her blood pressure remains stable on current medications and will continue that on discharge Acute worsening of stage 4 chronic kidney disease: Admitting creatinine of 2.55, baseline creatinine around 1.7-1.9. Secondary to dehydration and Bactrim therapy Lasix is on hold and Aldactone has been continued US renal w/ no obstruction. Cr improving, Nephrology onboard, appreciate recommendation. Aldactone resumed today, lasix still on hold. Avoid nephrotoxins Has been getting cautious amount of intravenous fluid for worsening creatinine Creatinine has improved to 2.09 from 2.35 Strongly advised to drink more fluid Kidney function has been improving creatinine is reduced to 1.69 today Kidney function has improved and will hold Lasix for now Smaller dose of low-dose Lasix can be restarted as an outpatient as per the groover runner UTI (urinary tract infection): Metabolic encephalopathy: patient appears confused in the setting of recent Bactrim use. Hold Bactrim. Continue to monitor. UCx from 05/29/24 grew Klebsiella pneumonia Per [facility] records, she has been on Bactrim since Patient still reported urinary freq at presentation, Admitting urine culture no growth Stopped bactrim as above and continue IV ceftriaxone 06/06 for now --> to diff atb, see below. Has been on intravenous Zosyn which will cover UTI and also possible aspiration pneumonia Antibiotic has been discontinued for UTI Aspiration pneumonia: Patient vomited in a.m. of 06/07, follow-up CXR with left lung base opacity. WBC peaked at 24.2K on 06/08. DC'd Rocephin and initiated Zosyn 06/08. Continue to monitor vitals and clinical status. Afebrile, wbc trending down. Pt feeling better. will complete 7-10 day antibiotic course. Chest x-ray did not show any evidence of pneumonia Zosyn has been discontinued ,no signs and or symptoms of infection Leukocytosis White count is minimally elevated at 12.37 No signs and or symptoms of infection The elevation is most likely secondary to prednisone use Will be rechecked tomorrow and if decreasing she will be discharged Other chronic medical conditions: Continue with/resume home meds as and when able. Chronic hypoxic respiratory failure, on home oxygen therapy: Continue home oxygen. Stable. Atrial fibrillation: Paroxysmal A-fib, rate controlled, continue home metoprolol And Eliquis. T2DM: A1c of 6.4 in 10/05. Continue sliding scale insulin. Rheumatoid arthritis: Pain control. Continue weekly methotrexate. She has chronic generalized body pains especially in hands, feet and low back due to her arthritis. Has been on very small dose of prednisone of 5 mg daily with improvement of the pain/arthralgia. Anxiety and depression: Continue home Ativan and Seroquel Nonischemic cardiomyopathy: Continue home Toprol-XL. Lasix and Aldactone on hold due to MARY over CKD. See above. Follows [facility] cardiology. Has chronic leg edema. DVT prophylaxis: Patient on Eliquis. CODE STATUS: DNR/DNI PT/OT, CM to assist with DC planning. Discussed with the family members Discussed with the family members likely transfer tomorrow Admission and Anticipated Discharge Date Admission Date: June 06, 2024 Subjective 06/13/2024 The patient was seen and examined in telemetry unit in presence of the family members She has been stable and making out less urine She is on intravenous fluid and denies any significant symptoms 06/14/2024 Patient was seen and examined in telemetry unit She has been feeling much better and denies any significant symptoms except weakness She has been waiting to be placed 06/15/2024 The patient was seen and examined in telemetry unit She has been much better today without any symptoms except weakness Noted to have minimally elevated white count of more than 11,000 The family members and daughter wanted to have the white count to be trending down before discharge 06/16/2024 The patient was seen and examined in clinic clinic in presence of the Patient remains stable denies any significant symptoms The daughter and the son wanted to have cardiology evaluation before discharge Review of Systems Review of Systems: All systems reviewed and are unremarkable except as noted below Physical Exam Physical Exam: Lying in bed without any acute distress Constitutional: well developed, well nourished, + ill appearing and + obese Eyes: PERRL, conjunctivae normal, anicteric sclerae ENMT: external ear and nose normal, oropharynx normal Neck: trachea midline, no thyromegaly Respiratory: no respiratory distress Auscultation: lungs clear to auscultation bilaterally Cardiovascular: Rate/Rhythm: regular rate and regular rhythm; not tachycardic Heart Sounds: normal S1 and normal S2; no murmur Extremities: + edema ( trace edema bilaterally) Gastrointestinal (Abdomen): Inspection/Auscultation: normal bowel sounds; abdomen not distended Percussion/Palpation: abdomen soft; abdomen nontender Neurologic: normal touch/pain/proprioception and moves all extremities; no focal motor deficits Lymphatic: no cervical or axillary lymphadenopathy Results & Data Results & Data Vital Signs (Past 12 Hours) Vital Signs Temp Pulse Resp BP Pulse Ox O2 Del Method O2 Flow Rate 06/16/24 14:58 36.4 C L 81 18 148/78 H 98 Nasal Cannula 1 06/16/24 11:11 Nasal Cannula 2 06/16/24 10:57 36.4 C L 84 18 135/80 97 Nasal Cannula 1 06/16/24 09:32 168/77 H 06/16/24 07:34 36.3 C L 80 18 199/101 H 98 Nasal Cannula 1 Laboratory Results Short CBC 06/16/24 Range/Units 06:48 WBC 12.37 H (4.8-10.8) K/ul Hgb 10.7 L (12.0-16.0) g/dl Hct 33.6 L (37.0-47.0) % Plt Count 331 (130-400) K/uL Medications Administered Current Inpatient Medications Acetaminophen (Acetaminophen 500 Mg Tab) 1,000 mg PO BID [facility]ARIKA Stop: 07/06/24 20:59 Last Admin: 06/16/24 09:01 Dose: 1,000 mg Hydrocodone Bitart/Acetaminophen (Hydrocodone/Acetaminophen 10/325 Tab) 1 tab PO TID PRN PRN Reason: Moderate pain Stop: 06/20/24 12:39 Last Admin: 06/16/24 13:47 Dose: 1 tab Amlodipine Besylate (Amlodipine Besylate 5 Mg Tab) 5 mg PO QAM [facility] Stop: 07/15/24 08:59 Last Admin: 06/16/24 08:50 Dose: 5 mg Apixaban (Apixaban 2.5 Mg Tab) 2.5 mg PO BID [facility] Stop: 07/06/24 20:59 Last Admin: 06/16/24 08:49 Dose: 2.5 mg Atorvastatin Calcium (Atorvastatin 10 Mg Tab) 10 mg PO HS [facility] Stop: 07/06/24 20:59 Last Admin: 06/15/24 20:56 Dose: 10 mg Benzonatate (Benzonatate 100 Mg Capsule) 200 mg PO TID PRN PRN Reason: Cough Stop: 07/06/24 12:25 Last Admin: 06/16/24 09:02 Dose: 200 mg Buspirone HCl (Buspirone 7.5 Mg Tab) 7.5 mg PO TID [facility] Stop: 07/06/24 13:59 Last Admin: 06/16/24 12:19 Dose: 7.5 mg Calcium Carbonate (Calcium Carbonate 1250mg Tab) 1 tab PO TID PRN PRN Reason: stomach acid Stop: 07/06/24 12:37 Calcium Carbonate (Calcium Carbonate 500 Mg Chewable Tab) 1,000 mg PO Q8H PRN PRN Reason: Indigestion Stop: 07/07/24 17:25 Last Admin: 06/16/24 09:00 Dose: 1,000 mg Dextrose (Dextrose 50% 50 Ml Syringe) 25 - 50 ml IV UD PRN; Protocol PRN Reason: Hypoglycemia Protocol Stop: 07/06/24 19:39 Diclofenac Sodium (Diclofenac Sod 1% Gel 100 Gm Tube) 2 gm EXT Q6H PRN; Protocol PRN Reason: pain Stop: 07/11/24 08:14 Last Admin: 06/14/24 08:17 Dose: 2 gm Docusate Sodium (Docusate Sodium 100 Mg Cap) 100 mg PO DAILY [facility]ARIKA Stop: 07/07/24 08:59 Last Admin: 06/16/24 09:01 Dose: 100 mg Folic Acid (Folic Acid 1 Mg Tab) 2 mg PO DAILY [facility] Stop: 07/07/24 08:59 Last Admin: 06/16/24 08:50 Dose: 2 mg Furosemide (Furosemide 40 Mg Tab) 40 mg PO DAILY [facility] Stop: 07/07/24 08:59 Last Admin: 06/07/24 09:49 Dose: 40 mg Gabapentin (Gabapentin 300 Mg Cap) 300 mg PO HS [facility] Stop: 07/06/24 20:59 Last Admin: 06/15/24 20:56 Dose: 300 mg Gabapentin (Gabapentin 100 Mg Cap) 100 mg PO DAILY [facility] Stop: 07/07/24 08:59 Last Admin: 06/16/24 08:49 Dose: 100 mg Glucagon (Glucagon For Inj 1 Mg Vial) 1 mg SQ UD PRN; Protocol PRN Reason: Hypoglycemia Protocol Stop: 07/06/24 19:39 Glucose (Glucose 40% Gel 15 Gm Tube) 15 - 30 gm PO UD PRN; Protocol PRN Reason: Hypoglycemia Protocol Stop: 07/06/24 19:39 Glucose (Glucose 10 Tab/Tube) 4 - 8 tab PO UD PRN; Protocol PRN Reason: Hypoglycemia Protocol Stop: 07/06/24 19:39 Insulin Aspart (Insulin Aspart Per Unit Charge) 0 units SC ACHS [facility] Stop: 07/06/24 12:25 Last Admin: 06/16/24 11:46 Dose: 7 units Insulin Glargine (Lantus Per Unit Charge) 25 units SQ QAM [facility] Stop: 07/07/24 08:59 Last Admin: 06/16/24 09:01 Dose: 25 units Labetalol HCl (Labetalol Hcl Iv 5 Mg/Ml 20ml) 5 mg IV Q4H PRN PRN Reason: HTN Stop: 07/07/24 17:40 Lactobacillus Acidophilus (Advanced Probiotic 625 Mg Capsule) 1,250 mg PO DAILY [facility] Stop: 07/08/24 11:44 Last Admin: 06/16/24 08:47 Dose: 1,250 mg Lidocaine (Lidocaine 5% 1 Patch) 1 patch TD DAILY PRN PRN Reason: Other Stop: 07/06/24 12:40 Last Admin: 06/07/24 13:56 Dose: 1 patch Lidocaine HCl (Lidocaine Viscous 2% 15 Ml Udc) 15 ml MT TID PRN PRN Reason: for sore mouth Stop: 07/09/24 17:41 Last Admin: 06/10/24 12:31 Dose: 15 ml Lorazepam (Lorazepam 1 Mg Tab) 1 mg PO DAILY PRN PRN Reason: Anxiety Stop: 07/06/24 12:25 Last Admin: 06/16/24 13:47 Dose: 1 mg Lorazepam (Lorazepam 1 Mg Tab) 1 mg PO BID [facility] Stop: 07/06/24 20:59 Last Admin: 06/16/24 09:02 Dose: 1 mg Metoprolol Succinate (Metoprolol Succ 50mg Ext Rel Tab) 200 mg PO DAILY [facility] Stop: 07/07/24 08:59 Last Admin: 06/16/24 08:48 Dose: 200 mg Miscellaneous (Carbohydrates For Hypoglycemia ) 15 - 30 gm PO UD PRN PRN Reason: Hypoglycemia Protocol Stop: 07/06/24 19:39 Montelukast Sodium (Montelukast Sodium 10 Mg Tablet) 10 mg PO QPM [facility] Stop: 07/06/24 20:59 Last Admin: 06/15/24 20:56 Dose: 10 mg Multivitamins/Minerals (Cerovite Adv Formula Tab) 1 tab PO BID [facility] Stop: 07/06/24 20:59 Last Admin: 06/16/24 08:48 Dose: 1 tab Ondansetron HCl (Ondansetron 4 Mg Od Tab) 4 mg PO DAILY PRN PRN Reason: Nausea And Vomiting Stop: 07/06/24 12:25 Pantoprazole Sodium (Pantoprazole 40 Mg Tab) 40 mg PO BID [facility] Stop: 07/06/24 20:59 Last Admin: 06/16/24 08:49 Dose: 40 mg Polyethylene Glycol (Polyethylene (Miralax) 17 Gm Pack) 17 gm PO DAILY [facility] Stop: 07/12/24 15:59 Last Admin: 06/16/24 09:00 Dose: 17 gm Prednisone (Prednisone 5 Mg Tab) 5 mg PO QAM [facility] Stop: 06/17/24 09:01 Last Admin: 06/16/24 08:50 Dose: 5 mg Quetiapine Fumarate (Quetiapine Fumarate 25 Mg Tablet) 25 mg PO HS [facility] Stop: 07/06/24 20:59 Last Admin: 06/15/24 20:57 Dose: 25 mg Simethicone (Simethicone 80 Mg Chew) 160 mg PO TIDM [facility] Stop: 07/06/24 13:59 Last Admin: 06/16/24 11:46 Dose: 160 mg Spironolactone (Spironolactone 12.5 Mg Tab) 12.5 mg PO DAILY [facility] Stop: 07/12/24 08:59 Last Admin: 06/16/24 08:48 Dose: 12.5 mg Venlafaxine HCl (Venlafaxine Hcl Xr 75 Mg Capxr) 75 mg PO HS [facility] Stop: 07/06/24 20:59 Last Admin: 06/15/24 20:57 Dose: 75 mg Vitamin B Complex (Vitamin B Complex Tab) 1 tab PO DAILY [facility] Stop: 07/07/24 08:59 Last Admin: 06/16/24 08:50 Dose: 1 tab Vitamin D (Cholecalciferol 25 Mcg (1000 Units) Tab) 25 mcg PO DAILY [facility] Stop: 07/07/24 08:59 Last Admin: 06/16/24 08:47 Dose: 25 mcg
[2024-06-17] MEDS: LABETALOL HCL IV 5 MG/ML 20ML IV PRN (06:19)
[2024-06-17 07:46] LABS: Basophils # (auto) 0.05 K/uL (0.00-0.20); Basophils % (auto) 0.4 %; Eosinophils # (auto) 0.31 K/uL (0.00-0.50); Eosinophils % (auto) 2.5 %; Hematocrit (blood only) 34.1 % (37.0-47.0); Immature Granulocytes # (auto) 0.19 K/uL (0.01-0.20); Immature Granulocytes % (auto) 1.6 %; Lymphocytes # (auto) 3.19 K/uL (1.20-3.40); Lymphocytes % (auto) 26.1 %; Mean Corpuscular Hemoglobin 31.8 pg (25.0-34.0); Mean Corpuscular Hgb Conc 32.3 g/dL (32.0-36.0); Mean Corpuscular Volume 98.6 fL (80.0-100.0); Mean Platelet Volume 9.1 fL (9.4-12.4); Monocytes # (auto) 1.06 K/uL (0.11-0.59); Monocytes % (auto) 8.7 %; Neutrophils # (auto) 7.42 K/uL (1.40-6.50); Neutrophils % (auto) 60.7 %; Platelet Count 321 K/uL (130-400); RDW Coefficient of Variation 15.3 % (11.5-14.5); RDW Standard Deviation 54.5 fL (36.4-46.3); Red Blood Count 3.46 M/uL (4.20-5.40); White Blood Count 12.22 K/ul (4.8-10.8)
[2024-06-17 09:30] LABS: BUN Creatinine Ratio 18.3 (10-20); Calcium 9.2 mg/dl (8.6-10.3); Creatinine Clr Calc Pharmacy 24.7 ml/min; Potassium 4.4 mmol/L (3.5-5.1)
--- NOTE | 2024-06-17 10:04 | Hospitalist Progress Note ---
Date of Service June 17, 2024 Assessment & Plan (1) MARY (acute kidney injury): Plan 89-year-old lady with PMH of PAF on Eliquis, CKD, T2DM, nonischemic cardiomyopathy [EF of 20 to 25% subsequently improved to most recent value of 60 to 65%] status post biventricular ICD, ANN intolerant to CPAP, rheumatoid arthritis, lumbar degenerative disease, CKD and chronic hypoxic respiratory failure requiring 2 L of oxygen was sent in from [place] for generalized pain and elevated blood pressure. She is being managed for the following: Hypertensive urgency: BP was 183/103 on presentation. Got Metoprolol succinate in ER. BP has been stable thereafter. Continue with home antihypertensive and as needed blood pressure medication. BP is reasonably controlled with current medications on spironolactone 12.5 mg daily and amlodipine 2.5 mg daily on top follow-up metoprolol succinate 200 mg daily Blood pressure remains on the upper side at 179/84 and amlodipine has been increased to 5 mg once daily by the beverage distiller Will monitor Blood pressure remains on the upper side at 173/83 and will observe for now Her blood pressure remains stable on current medications and will continue that on discharge Blood pressure is maintaining at around 150/73 Acute worsening of stage 4 chronic kidney disease: Admitting creatinine of 2.55, baseline creatinine around 1.7-1.9. Secondary to dehydration and Bactrim therapy Lasix is on hold and Aldactone has been continued US renal w/ no obstruction. Cr improving, Nephrology onboard, appreciate recommendation. Aldactone resumed today, lasix still on hold. Avoid nephrotoxins Has been getting cautious amount of intravenous fluid for worsening creatinine Creatinine has improved to 2.09 from 2.35 Strongly advised to drink more fluid Kidney function has been improving creatinine is reduced to 1.69 today Kidney function has improved and will hold Lasix for now Smaller dose of low-dose Lasix can be restarted as an outpatient as per the beverage distiller Creatinine is slightly up today at 1.80 and she was advised to drink more fluid Atrial fibrillation: Paroxysmal A-fib, rate controlled, continue home metoprolol And Eliquis. Appreciate cardiology input and recommendation No changes in her medications made She will have usual follow-up with a credit risk analyst as an outpatient UTI (urinary tract infection): Metabolic encephalopathy: patient appears confused in the setting of recent Bactrim use. Hold Bactrim. Continue to monitor. UCx from 05/29/24 grew Klebsiella pneumonia Per [facility] records, she has been on Bactrim since Patient still reported urinary freq at presentation, Admitting urine culture no growth Stopped bactrim as above and continue IV ceftriaxone 06/06 for now --> to diff atb, see below. Has been on intravenous Zosyn which will cover UTI and also possible aspiration pneumonia Antibiotic has been discontinued for UTI Denies any symptoms of cystitis Aspiration pneumonia: Patient vomited in a.m. of 06/07, follow-up CXR with left lung base opacity. WBC peaked at 24.2K on 06/08. DC'd Rocephin and initiated Zosyn 06/08. Continue to monitor vitals and clinical status. Afebrile, wbc trending down. Pt feeling better. will complete 7-10 day antibiotic course. Chest x-ray did not show any evidence of pneumonia Zosyn has been discontinued ,no signs and or symptoms of infection No cough and no shortness of breath Leukocytosis White count is minimally elevated at 12.37 No signs and or symptoms of infection The elevation is most likely secondary to prednisone use Will be rechecked tomorrow and if decreasing she will be discharged Her white count remains at around 12 and this is likely secondary to use of prednisone Other chronic medical conditions: Continue with/resume home meds as and when able. Chronic hypoxic respiratory failure, on home oxygen therapy: Continue home oxygen. Stable. Atrial fibrillation: Paroxysmal A-fib, rate controlled, continue home metoprolol And Eliquis. T2DM: A1c of 6.4 in 10/05. Continue sliding scale insulin. Rheumatoid arthritis: Pain control. Continue weekly methotrexate. She has chronic generalized body pains especially in hands, feet and low back due to her arthritis. Has been on very small dose of prednisone of 5 mg daily with improvement of the pain/arthralgia. Anxiety and depression: Continue home Ativan and Seroquel Nonischemic cardiomyopathy: Continue home Toprol-XL. Lasix and Aldactone on hold due to MARY over CKD. See above. Follows [facility] cardiology. Has chronic leg edema. DVT prophylaxis: Patient on Eliquis. CODE STATUS: DNR/DNI PT/OT, CM to assist with DC planning. Discussed with the family members Discussed with the family members likely transfer tomorrow Discussed with the son and she will be transferred to [facility] this afternoon Admission and Anticipated Discharge Date Admission Date: June 06, 2024 Subjective 06/13/2024 The patient was seen and examined in telemetry unit in presence of the family members She has been stable and making out less urine She is on intravenous fluid and denies any significant symptoms 06/14/2024 Patient was seen and examined in telemetry unit She has been feeling much better and denies any significant symptoms except weakness She has been waiting to be placed 06/15/2024 The patient was seen and examined in telemetry unit She has been much better today without any symptoms except weakness Noted to have minimally elevated white count of more than 11,000 The family members and daughter wanted to have the white count to be trending down before discharge 06/16/2024 The patient was seen and examined in Telemetry unit in presence of the son Patient remains stable denies any significant symptoms The daughter and the son wanted to have cardiology evaluation before discharge 06/17/2024 The patient was seen and examined in telemetry unit She has been stable and does not have any significant symptoms She will be transferred to [facility] this afternoon Review of Systems Review of Systems: All systems reviewed and are unremarkable except as noted below Physical Exam Physical Exam: Lying in bed without any acute distress Constitutional: well developed, well nourished, + ill appearing and + obese Eyes: PERRL, conjunctivae normal, anicteric sclerae ENMT: external ear and nose normal, oropharynx normal Neck: trachea midline, no thyromegaly Respiratory: no respiratory distress Auscultation: lungs clear to auscultation bilaterally Cardiovascular: Rate/Rhythm: regular rate and regular rhythm; not tachycardic Heart Sounds: normal S1 and normal S2; no murmur Extremities: + edema ( trace edema bilaterally) Gastrointestinal (Abdomen): Inspection/Auscultation: normal bowel sounds; abdomen not distended Percussion/Palpation: abdomen soft; abdomen nontender Neurologic: normal touch/pain/proprioception and moves all extremities; no focal motor deficits Lymphatic: no cervical or axillary lymphadenopathy Results & Data Results & Data Vital Signs (Past 12 Hours) Vital Signs Temp Pulse Pulse Resp BP BP Pulse Ox 06/17/24 08:39 36.3 C L 83 150/73 H 95 06/17/24 06:34 82 179/84 H 06/17/24 06:19 194/93 H 06/17/24 02:51 36.2 C L 77 15 176/79 H 98 06/16/24 23:44 80 06/16/24 23:35 06/16/24 22:46 36.4 C L 83 16 177/76 H 96 O2 Del Method O2 Flow Rate 06/17/24 08:39 Room Air 06/17/24 06:34 06/17/24 06:19 06/17/24 02:51 Nasal Cannula 1 06/16/24 23:44 06/16/24 23:35 Nasal Cannula 2 06/16/24 22:46 Nasal Cannula 2 Laboratory Results Short CBC 06/17/24 Range/Units 07:18 WBC 12.22 H (4.8-10.8) K/ul Hgb 11.0 L (12.0-16.0) g/dl Hct 34.1 L (37.0-47.0) % Plt Count 321 (130-400) K/uL BMP 06/17/24 09:01 Sodium 140 Potassium 4.4 Chloride 104 Carbon Dioxide 31 BUN 33 H Creatinine 1.80 H Glucose 160 H Calcium 9.2 Medications Administered Current Inpatient Medications Acetaminophen (Acetaminophen 500 Mg Tab) 1,000 mg PO BID NIHARIKA Stop: 07/06/24 20:59 Last Admin: 06/16/24 20:18 Dose: 1,000 mg Hydrocodone Bitart/Acetaminophen (Hydrocodone/Acetaminophen 10/325 Tab) 1 tab PO TID PRN PRN Reason: Moderate pain Stop: 06/20/24 12:39 Last Admin: 06/17/24 06:19 Dose: 1 tab Amlodipine Besylate (Amlodipine Besylate 5 Mg Tab) 5 mg PO QAM NIHARIKA Stop: 07/15/24 08:59 Last Admin: 06/16/24 08:50 Dose: 5 mg Apixaban (Apixaban 2.5 Mg Tab) 2.5 mg PO BID NIHARIKA Stop: 07/06/24 20:59 Last Admin: 06/16/24 20:18 Dose: 2.5 mg Atorvastatin Calcium (Atorvastatin 10 Mg Tab) 10 mg PO HS NIHARIKA Stop: 07/06/24 20:59 Last Admin: 06/16/24 20:18 Dose: 10 mg Benzonatate (Benzonatate 100 Mg Capsule) 200 mg PO TID PRN PRN Reason: Cough Stop: 07/06/24 12:25 Last Admin: 06/16/24 09:02 Dose: 200 mg Buspirone HCl (Buspirone 7.5 Mg Tab) 7.5 mg PO TID NIHARIKA Stop: 07/06/24 13:59 Last Admin: 06/16/24 20:18 Dose: 7.5 mg Calcium Carbonate (Calcium Carbonate 1250mg Tab) 1 tab PO TID PRN PRN Reason: stomach acid Stop: 07/06/24 12:37 Calcium Carbonate (Calcium Carbonate 500 Mg Chewable Tab) 1,000 mg PO Q8H PRN PRN Reason: Indigestion Stop: 07/07/24 17:25 Last Admin: 06/16/24 09:00 Dose: 1,000 mg Dextrose (Dextrose 50% 50 Ml Syringe) 25 - 50 ml IV UD PRN; Protocol PRN Reason: Hypoglycemia Protocol Stop: 07/06/24 19:39 Diclofenac Sodium (Diclofenac Sod 1% Gel 100 Gm Tube) 2 gm EXT Q6H PRN; Protocol PRN Reason: pain Stop: 07/11/24 08:14 Last Admin: 06/14/24 08:17 Dose: 2 gm Docusate Sodium (Docusate Sodium 100 Mg Cap) 100 mg PO DAILY NIHARIKA Stop: 07/07/24 08:59 Last Admin: 06/16/24 09:01 Dose: 100 mg Folic Acid (Folic Acid 1 Mg Tab) 2 mg PO DAILY NIHARIKA Stop: 07/07/24 08:59 Last Admin: 06/16/24 08:50 Dose: 2 mg Furosemide (Furosemide 40 Mg Tab) 40 mg PO DAILY NIHARIKA Stop: 07/07/24 08:59 Last Admin: 06/07/24 09:49 Dose: 40 mg Gabapentin (Gabapentin 300 Mg Cap) 300 mg PO HS NIHARIKA Stop: 07/06/24 20:59 Last Admin: 06/16/24 20:18 Dose: 300 mg Gabapentin (Gabapentin 100 Mg Cap) 100 mg PO DAILY NIHARIKA Stop: 07/07/24 08:59 Last Admin: 06/16/24 08:49 Dose: 100 mg Glucagon (Glucagon For Inj 1 Mg Vial) 1 mg SQ UD PRN; Protocol PRN Reason: Hypoglycemia Protocol Stop: 07/06/24 19:39 Glucose (Glucose 40% Gel 15 Gm Tube) 15 - 30 gm PO UD PRN; Protocol PRN Reason: Hypoglycemia Protocol Stop: 07/06/24 19:39 Glucose (Glucose 10 Tab/Tube) 4 - 8 tab PO UD PRN; Protocol PRN Reason: Hypoglycemia Protocol Stop: 07/06/24 19:39 Insulin Aspart (Insulin Aspart Per Unit Charge) 0 units SC ACHS [facility] Stop: 07/06/24 12:25 Last Admin: 06/17/24 09:59 Dose: Not Given Insulin Glargine (Lantus Per Unit Charge) 25 units SQ QAM NIHARIKA Stop: 07/07/24 08:59 Last Admin: 06/16/24 09:01 Dose: 25 units Labetalol HCl (Labetalol Hcl Iv 5 Mg/Ml 20ml) 5 mg IV Q4H PRN PRN Reason: HTN Stop: 07/07/24 17:40 Last Admin: 06/17/24 06:19 Dose: 5 mg Lactobacillus Acidophilus (Advanced Probiotic 625 Mg Capsule) 1,250 mg PO DAILY [facility] Stop: 07/08/24 11:44 Last Admin: 06/16/24 08:47 Dose: 1,250 mg Lidocaine (Lidocaine 5% 1 Patch) 1 patch TD DAILY PRN PRN Reason: Other Stop: 07/06/24 12:40 Last Admin: 06/07/24 13:56 Dose: 1 patch Lidocaine HCl (Lidocaine Viscous 2% 15 Ml Udc) 15 ml MT TID PRN PRN Reason: for sore mouth Stop: 07/09/24 17:41 Last Admin: 06/10/24 12:31 Dose: 15 ml Lorazepam (Lorazepam 1 Mg Tab) 1 mg PO DAILY PRN PRN Reason: Anxiety Stop: 07/06/24 12:25 Last Admin: 06/16/24 13:47 Dose: 1 mg Lorazepam (Lorazepam 1 Mg Tab) 1 mg PO BID [facility] Stop: 07/06/24 20:59 Last Admin: 06/16/24 20:19 Dose: 1 mg Metoprolol Succinate (Metoprolol Succ 50mg Ext Rel Tab) 200 mg PO DAILY [facility] Stop: 07/07/24 08:59 Last Admin: 06/16/24 08:48 Dose: 200 mg Miscellaneous (Carbohydrates For Hypoglycemia ) 15 - 30 gm PO UD PRN PRN Reason: Hypoglycemia Protocol Stop: 07/06/24 19:39 Montelukast Sodium (Montelukast Sodium 10 Mg Tablet) 10 mg PO QPM NIHARIKA Stop: 07/06/24 20:59 Last Admin: 06/16/24 20:19 Dose: 10 mg Multivitamins/Minerals (Cerovite Adv Formula Tab) 1 tab PO BID NIHARIKA Stop: 07/06/24 20:59 Last Admin: 06/16/24 20:19 Dose: 1 tab Ondansetron HCl (Ondansetron 4 Mg Od Tab) 4 mg PO DAILY PRN PRN Reason: Nausea And Vomiting Stop: 07/06/24 12:25 Pantoprazole Sodium (Pantoprazole 40 Mg Tab) 40 mg PO BID NIHARIKA Stop: 07/06/24 20:59 Last Admin: 06/16/24 20:20 Dose: 40 mg Polyethylene Glycol (Polyethylene (Miralax) 17 Gm Pack) 17 gm PO DAILY NIHARIKA Stop: 07/12/24 15:59 Last Admin: 06/16/24 09:00 Dose: 17 gm Quetiapine Fumarate (Quetiapine Fumarate 25 Mg Tablet) 25 mg PO HS NIHARIKA Stop: 07/06/24 20:59 Last Admin: 06/16/24 20:20 Dose: 25 mg Simethicone (Simethicone 80 Mg Chew) 160 mg PO TIDM NIHARIKA Stop: 07/06/24 13:59 Last Admin: 06/16/24 16:42 Dose: 160 mg Spironolactone (Spironolactone 12.5 Mg Tab) 12.5 mg PO DAILY NIHARIKA Stop: 07/12/24 08:59 Last Admin: 06/16/24 08:48 Dose: 12.5 mg Venlafaxine HCl (Venlafaxine Hcl Xr 75 Mg Capxr) 75 mg PO HS NIHARIKA Stop: 07/06/24 20:59 Last Admin: 06/16/24 20:20 Dose: 75 mg Vitamin B Complex (Vitamin B Complex Tab) 1 tab PO DAILY NIHARIKA Stop: 07/07/24 08:59 Last Admin: 06/16/24 08:50 Dose: 1 tab Vitamin D (Cholecalciferol 25 Mcg (1000 Units) Tab) 25 mcg PO DAILY NIHARIKA Stop: 07/07/24 08:59 Last Admin: 06/16/24 08:47 Dose: 25 mcg
--- NOTE | 2024-06-17 10:45 | Cardiology Progress Note ---
Date of Service June 17, 2024 Assessment & Plan (1) Atrial fibrillation: (2) Biventricular ICD (implantable cardioverter-defibrillator) in place: (3) Chronic systolic congestive heart failure: (4) HTN (hypertension): Plan 1. Atrial Fibrillation - Patient on Eliquis and Metoprolol. Rate and Rhythm Controlled. Continue Eliquis and Metoprolol Currently not in atrial fibrillation. 2. Biventricular ICD in place -Device was checked on 03/06/24 and was functioning normally, on telemetry it appears to be functioning normally this admission. 3. Chronic Systolic Heart Failure - Echocardiogram on 06/01/23 shows normal left ventricular size and systolic function. EF 60 to 65%. No regional wall motion abnormalities. Severe concentric left ventricular hypertrophy, Mild left atrial dilation , Sclerotic aortic valve without significant stenosis and Normal estimated right ventricular systolic pressure. - Patient states no shortness of breath, cough and palpitation -Lasix on hold due to MARY. 4. Hypertension: Her blood pressure is significantly elevated, agree with increased blood pressure medications. This may improve somewhat in a more normal setting. I believe she will be going to rehab today, from the cardiovascular standpoint that is acceptable. She has an appointment in our office in August with Dr. Buchanan, I believe that is acceptable as well. I do not think she needs a sooner appointment unless her cardiac condition changes. Admission and Anticipated Discharge Date Admission Date: June 06, 2024 Subjective Events during this hospitalization reviewed. She is well-known to me from the outpatient setting. She feels weak, but has no other specific complaints and has no cardiac complaints. No palpitations. Physical Exam Physical Exam: Constitutional: Alert, cooperative and in no distress. She is resting in bed. Pulmonary: Clear to auscultation bilaterally. Cardiac: Regular rhythm with no murmur, gallop or rub. Abdomen: Soft, nontender with normal bowel sounds. Extremities: No edema. Skin: No rash, ecchymoses or petechiae. Results & Data Vital Signs (Past 12 Hours) Vital Signs Temp Pulse Pulse Resp BP BP Pulse Ox 06/17/24 08:39 36.3 C L 83 150/73 H 95 06/17/24 06:34 82 179/84 H 06/17/24 06:19 194/93 H 06/17/24 02:51 36.2 C L 77 15 176/79 H 98 06/16/24 23:44 80 06/16/24 23:35 06/16/24 22:46 36.4 C L 83 16 177/76 H 96 O2 Del Method O2 Flow Rate 06/17/24 08:39 Room Air 06/17/24 06:34 06/17/24 06:19 06/17/24 02:51 Nasal Cannula 1 06/16/24 23:44 06/16/24 23:35 Nasal Cannula 2 06/16/24 22:46 Nasal Cannula 2 Laboratory Results CBC 06/17/24 Range/Units 07:18 WBC 12.22 H (4.8-10.8) K/ul RBC 3.46 L (4.20-5.40) M/uL Hgb 11.0 L (12.0-16.0) g/dl Hct 34.1 L (37.0-47.0) % Plt Count 321 (130-400) K/uL Neut # (Auto) 7.42 H (1.40-6.50) K/uL Lymph # (Auto) 3.19 (1.20-3.40) K/uL [place] # (Auto) 1.06 H (0.11-0.59) K/uL Eos # (Auto) 0.31 (0.00-0.50) K/uL Baso # (Auto) 0.05 (0.00-0.20) K/uL Comprehensive Metabolic Panel 06/17/24 Range/Units 09:01 Sodium 140 (136-145) mmol/L Potassium 4.4 (3.5-5.1) mmol/L Chloride 104 (98-107) mmol/L Carbon Dioxide 31 (21-32) mmol/L BUN 33 H (6-23) mg/dl Creatinine 1.80 H (0.6-1.2) mg/dl Glucose 160 H (70-99(Fasting)) mg/dl Calcium 9.2 (8.6-10.3) mg/dl Intake and Output 06/16/24 06/17/24 06/17/24 22:59 06:59 14:59 Intake Total 240 / 980 Output Total 0 1075 0 1075 Balance 0 / -95 240 / -95 Intake: Oral 240 / 980 Output: Urine 0 1075 # Bowel Movements 0 / 0 0 / 0 Other: # Unmeasured Voids 0 2 Weight 95.424 kg Weight Measurement Method Built in [facility] PG Care Time/CCT Total # of Minutes Spent Total Time Spent with Patient: Total time spent is greater than 50% in coordination of care (as documented) at patient's floor/unit and/or counseling patient: Coding Level of Care Code 08476 SUB INP/OBS CARE 2/35MIN Diagnoses Atrial fibrillation I48.91 Biventricular ICD (implantable cardioverter-defibrillator) in place Z95.810 Chronic systolic congestive heart failure I50.22 HTN (hypertension) I10 Hypertension type: unspecified (4) HTN (hypertension) Hypertension type: unspecified Qualified Code(s): I10 - Essential (primary) hypertension
[2024-06-17 12:40] VITALS: BP 128/81; PULSE 80; RESP 18; TEMP 97.7; O2SAT 94
--- NOTE | 2024-06-18 07:49 | Discharge Summary ---
Date of Service June 18, 2024 Admission HPI Per Admitting Provider 89 year old woman with history of Paroxysmal Afib on eliquis, CKD, DM2, Nonischemic cardiomyopathy (EF 20-25% subsequently improved to most recent value of 60-65%) s/p biventricular ICD, ANN intolerant to CPAP, rheumatoid arthritis, CKD, and chronic hypoxic respiratory failure requiring 2L of O2 Rheumatoid arthritis, lumbar degenerative disease who was sent in from [facility] for generalized pain and elevated blood pressure. Patient reported that she has chronic generalized body pains especially in hands, feet and low back due to her arthritis. She also reported peripheral neuropathy with paresthesia However last night, she had increased body pains and was not feeling well She stated the RN at the facility check her BP and it was elevated and sent her in. She reports no fever, chills, nausea, vomiting, abd pain, diarrhea She uses oxygen at 2L/min chronically Reports sinus congestion and occasional rhinorrhea which she thinks is due to allergy but denied sore throat, SOB at rest or chest pain Reports chronic leg swelling and uses wheel chair to ambulate Reports urinary frequency that is increased within the past week. Was diagnosed of UTI and has been on antibiotic but symptoms persist Denied dysuria, low abd pain or flank pain. Admission Exam Per Admitting Provider Constitutional: + well hydrated and + obese; no acute di stress Eyes: PERRL, conjunctivae normal, anicteric sclerae ENMT: external ear and nose normal, oropharynx normal Respiratory: normal respiratory effort; no respiratory distress Auscultation: lungs clear to auscultation bilaterally Cardiovascular: RRR S1 S2 Gastrointestinal (Abdomen): normal bowel sounds, soft, nontender, no hepatosplenomegaly Musculoskeletal: Bilateral pedal edema Neurologic: PERRL, EOMI, accommodation nl, no face palsy, no dysarthria Psychiatric: A+Ox3, euthymic affect Principal Diagnosis MARY on CKD, hypertensive urgency, controlled atrial fibrillation, chronic systolic heart failure Discharge Exam Lying in bed without any acute distress Constitutional well developed, well nourished, + ill appearing and + obese Eyes PERRL, conjunctivae normal, anicteric sclerae ENMT external ear and nose normal, oropharynx normal Neck trachea midline, no thyromegaly Respiratory no respiratory distress Auscultation: lungs clear to auscultation bilaterally Cardiovascular Rate/Rhythm: regular rate and regular rhythm; not tachycardic Heart Sounds: normal S1 and normal S2; no murmur Extremities: + edema ( trace edema bilaterally) Gastrointestinal (Abdomen) Inspection/Auscultation: normal bowel sounds; abdomen not distended Percussion/Palpation: abdomen soft; abdomen nontender Neurologic normal touch/pain/proprioception and moves all extremities; no focal motor deficits Lymphatic no cervical or axillary lymphadenopathy Discharge Data Allergies Allergy/AdvReac Type Severity Reaction Status Date / Time amiodarone AdvReac Intermediate gi distress Verified 06/02/24 13:43 aspirin AdvReac Intermediate history of Verified 06/02/24 13:43 ulcers nortriptyline AdvReac Unknown DOESN'T Verified 06/02/24 13:43 REMEMBER Consultations 06/06/24 09:22 ED Decision to Admit Stat 06/07/24 13:37 Consult Nephrology Routine 06/16/24 10:38 Consult Cardiology Routine Ordered Studies 06/09/24 11:33 US renal/blad retro comp Routine Hospital Course (1) MARY (acute kidney injury): Plan 89-year-old lady with PMH of PAF on Eliquis, CKD, T2DM, nonischemic cardiomyopathy [EF of 20 to 25% subsequently improved to most recent value of 60 to 65%] status post biventricular ICD, ANN intolerant to CPAP, rheumatoid arthritis, lumbar degenerative disease, CKD and chronic hypoxic respiratory failure requiring 2 L of oxygen was sent in from [place] for generalized pain and elevated blood pressure. She is being managed for the following: Hypertensive urgency: BP was 183/103 on presentation. Got Metoprolol succinate in ER. BP has been stable thereafter. Continue with home antihypertensive and as needed blood pressure medication. BP is reasonably controlled with current medications on spironolactone 12.5 mg daily and amlodipine 2.5 mg daily on top follow-up metoprolol succinate 200 mg daily Blood pressure remains on the upper side at 179/84 and amlodipine has been increased to 5 mg once daily by the [employer] operations staff officer Will monitor Blood pressure remains on the upper side at 173/83 and will observe for now Her blood pressure remains stable on current medications and will continue that on discharge Blood pressure is maintaining at around 150/73 Acute worsening of stage 4 chronic kidney disease: Admitting creatinine of 2.55, baseline creatinine around 1.7-1.9. Secondary to dehydration and Bactrim therapy Lasix is on hold and Aldactone has been continued US renal w/ no obstruction. Cr improving, Nephrology onboard, appreciate recommendation. Aldactone resumed today, lasix still on hold. Avoid nephrotoxins Has been getting cautious amount of intravenous fluid for worsening creatinine Creatinine has improved to 2.09 from 2.35 Strongly advised to drink more fluid Kidney function has been improving creatinine is reduced to 1.69 today Kidney function has improved and will hold Lasix for now Smaller dose of low-dose Lasix can be restarted as an outpatient as per the [employer] operations staff officer Creatinine is slightly up today at 1.80 and she was advised to drink more fluid Atrial fibrillation: Paroxysmal A-fib, rate controlled, continue home metoprolol And Eliquis. Appreciate cardiology input and recommendation No changes in her medications made She will have usual follow-up with a level vial marker as an outpatient UTI (urinary tract infection): Metabolic encephalopathy: patient appears confused in the setting of recent Bactrim use. Hold Bactrim. Continue to monitor. UCx from 05/29/24 grew Klebsiella pneumonia Per [facility] records, she has been on Bactrim since Patient still reported urinary freq at presentation, Admitting urine culture no growth Stopped bactrim as above and continue IV ceftriaxone 06/06 for now --> to diff atb, see below. Has been on intravenous Zosyn which will cover UTI and also possible aspiration pneumonia Antibiotic has been discontinued for UTI Denies any symptoms of cystitis Aspiration pneumonia: Patient vomited in a.m. of 06/07, follow-up CXR with left lung base opacity. WBC peaked at 24.2K on 06/08. DC'd Rocephin and initiated Zosyn 06/08. Continue to monitor vitals and clinical status. Afebrile, wbc trending down. Pt feeling better. will complete 7-10 day antibiotic course. Chest x-ray did not show any evidence of pneumonia Zosyn has been discontinued ,no signs and or symptoms of infection No cough and no shortness of breath Leukocytosis White count is minimally elevated at 12.37 No signs and or symptoms of infection The elevation is most likely secondary to prednisone use Will be rechecked tomorrow and if decreasing she will be discharged Her white count remains at around 12 and this is likely secondary to use of prednisone Other chronic medical conditions: Continue with/resume home meds as and when able. Chronic hypoxic respiratory failure, on home oxygen therapy: Continue home oxygen. Stable. Atrial fibrillation: Paroxysmal A-fib, rate controlled, continue home metoprolol And Eliquis. T2DM: A1c of 6.4 in 10/05. Continue sliding scale insulin. Rheumatoid arthritis: Pain control. Continue weekly methotrexate. She has c hronic generalized body pains especially in hands, feet and low back due to her arthritis. Has been on very small dose of prednisone of 5 mg daily with improvement of the pain/arthralgia. Anxiety and depression: Continue home Ativan and Seroquel Nonischemic cardiomyopathy: Continue home Toprol-XL. Lasix and Aldactone on hold due to MARY over CKD. See above. Follows [facility] cardiology. Has chronic leg edema. DVT prophylaxis: Patient on Eliquis. CODE STATUS: DNR/DNI PT/OT, CM to assist with DC planning. Discussed with the family members Discussed with the family members likely transfer tomorrow Discussed with the son and she will be transferred to [facility] this afternoon Total Time Total Time Spent Total Time Spent (In Minutes): 35 minutes Discharge Plan Discharge Items Patient Disposition: Transfer Inpatient Rehab Fac Reason For Visit: MARY ON CKD, HTN URG Discharge Diagnosis: MARY on CKD, hypertensive urgency, controlled atrial fibrillation, chronic systolic heart failure Condition on Discharge: Fair Activity: As commented below Activity Comment: Continue PT and OT Non-emergency contact: Primary Care Provider Call non-emergency contact if: you have any medication questions and your symptoms worsen Follow-up/Referrals: [facility] [Primary Care Provider] - (Carmita to schedule PCP follow up within 1 week) Diet: Heart Healthy Fluids: 1500ml (6 cups) Addtl Attending Provider Instructions: Please take precautions to avoid falls Take your medications as advised Your furosemide is on hold for now which can be restarted as an outpatient Please keep appointments with your healthcare providers Pending Studies at Discharge: No Stand-Alone Forms: My [facility] Skilled Items Patient informed of condition?: Yes DNR: Yes Discharge Level of Care: Acute rehab Communicable Disease: No Discharge Prognosis: Stable Lines: None Urinary Catheter: Yes Medications and DC Order Prescriptions: New amlodipine [Norvasc] 5 mg Tablet 5 mg PO QAM Qty: 30 0RF spironolactone 25 mg Tablet 12.5 mg PO DAILY Qty: 30 0RF diclofenac sodium [Voltaren Arthritis Pain] 1 % Gel 2 g EXT BID Qty: 30 0RF Continued Antacid Ext Str (calcium carb) 300 mg (750 mg) tablet,chewable 300 mg PO TID PRN (Reason: stomach acid) quetiapine 25 mg tablet 25 mg PO HS insulin glargine [Lantus Solostar U-100 Insulin] 100 unit/mL (3 mL) insulin pen 25 unit subcut QAM lidocaine [AsperFlex (lidocaine)] 4 % adhesive patch,medicated 1 patch topical DAILY PRN (Reason: Other) docusate sodium [Colace] 100 mg capsule 100 mg PO DAILY polyethylene glycol 3350 [Miralax] 17 gram powder in packet 17 g PO DAILY PRN (Reason: Constipation) Qty: 30 1RF simethicone [Phazyme] 180 mg capsule 180 mg PO TID 30 Days Qty: 90 0RF Rx Instructions: after meals ondansetron 4 mg tablet,disintegrating 4 mg PO .daily prn Qty: 30 0RF atorvastatin 10 mg Tablet 10 mg PO HS benzonatate 200 mg Capsule 200 mg PO TID PRN (Reason: Cough) metoprolol succinate 200 mg Tablet Extended Release 24 Hr 200 mg PO DAILY loperamide 2 mg Tablet 2 mg PO DIRECTED PRN (Reason: Diarrhea) Rx Instructions: administer after each loose stool until symptoms controlled; do not exceed 8 mg per 24 hrs methotrexate sodium 2.5 mg Tablet 5 mg PO .WEDNESDAY pantoprazole 40 mg Tablet,Delayed Release (Dr/Ec) 40 mg PO BID vitamin B complex Tablet 1 tab PO DAILY folic acid 1 mg Tablet 2 mg PO DAILY montelukast 10 mg Tablet 10 mg PO QPM cholecalciferol (vitamin D3) [Vitamin D3] 50 mcg (2,000 unit) Capsule 2,000 unit PO DAILY Eliquis 2.5 mg Tablet 2.5 mg PO BID gabapentin 300 mg capsule 300 mg PO HS gabapentin 100 mg capsule 100 mg PO DAILY venlafaxine 75 mg Capsule,Extended Release 24hr 75 mg PO HS multivitamin [Daily-Kerry] Tablet 1 tab PO DAILY acetaminophen 500 mg Tablet 1,000 mg PO BID buspirone 7.5 mg Tablet 7.5 mg PO TID hydrocodone-acetaminophen 10-300 mg Tablet 1 tab PO TID MDD 3g lorazepam 1 mg Tablet 1 mg PO BID lorazepam 1 mg Tablet 1 mg PO DAILY PRN (Reason: Anxiety) PreserVision AREDS-2 250-90-40-1 mg Capsule 1 tab PO BID Held furosemide [Lasix] 40 mg tablet 40 mg PO DAILY Hold Instructions: Resume on 06/28/24. Plan to restart as an out patient. The above date an approximation Discontinued spironolactone 25 mg Tablet 25 mg PO 3XWK Rx Instructions: MON, WED, FRI sulfamethoxazole-trimethoprim [Bactrim DS] 800-160 mg Tablet 1 tab PO BID Rx Instructions: 8 day course for UTI - started on 05/31 Discharge Orders: Discharge Order (Routine); Ordered 06/17/24 Ordered By: Emely Valladares Admission Data Admit Date/Time: 06/06/24 10:43 Attending Provider: Emely Valladares Admit Provider: Heather Ray I. Primary Care Provider: [facility] Other Providers: Heather Ray I.; Lawanda Peterson; [facility]; Naun Seals; Frank Rivas; Jordan Buchanan; Ottoniel Becerra; Freddy Macias; Heber Lees; Sina Shahid Jr; Nathan Gutierrez; Miriam Covarrubias; Thao Amezquita; Palomo Hernandez; Palomo Chacon; Gopi Connelly; Tomasa Tyson; Ry Waite; Janelle Downing; Benson Crabtree; Ry Patterson; Pierre Brennan; Ariel Graham Other Interventions: Discharge Summary Assessment (RN) Last Done: 06/17/24 13:29
== END 2024-06-17 15:19 | DRG 682 ==
LOC: ED 07:49 → 2S 10:43 → SUATTDRO 10:43 → 2S 12:02

== ENCOUNTER 2025-06-12 18:42 | Observation (INO) ==
--- NOTE | 2025-06-12 20:02 | Emergency Department Note ---
Impression & Plan Ingestion of button battery ED Provider Note NAME: SWETHA MCCLOUD AGE: 89 SEX: F : 1935 ARRIVES VIA: Walk-In INFORMANT: Patient ED PROVIDER(S): Jordan Peres MD CHIEF COMPLAINT: Accidental ingestion of hearing aid and battery PLAN: Disposition: Admit MEDICAL DECISION MAKING: The patient is a pleasant 89-year-old woman with a past medical history of CHF on home oxygen, status post AICD, lumbar spinal stenosis, nonambulatory, morbid obesity, type 2 diabetes, sensorineural hearing loss, paroxysmal atrial fibrillation on Eliquis who presents to the emergency department via walk-in accompanied by her son for evaluation of accidental ingested foreign body where the patient had mistaken her hearing aid for a hard candy and had bitten on it and swallowed a portion of the hearing aid and suspected battery. The incident occurred at 2 PM but the patient was too embarrassed to tell family until this evening after she had her full dinner tonight. Patient denies any nausea or abdominal pain. On evaluation the patient is in no acute distress, afebrile with stable vital signs. Abdomen is benign. There is no crepitus on palpation of the neck or chest. X-rays were obtained of the chest and abdomen and suspected button battery from the patient's hearing aid is appreciated overlying the region of the upper abdomen/stomach. Case was discussed with Dr. Cash, GI on-call and to further localize the battery with precision agrees with CT imaging to definitively localize the battery. Subsequently CT of the on pelvis without contrast confirms battery is present in the stomach. However, given the distention of the patient's stomach after her full dinner tonight isolating the battery under this condition is not likely. Moreover it is not entirely clear whether the housing of the battery remains somewhat intact or if the battery is completely exposed. Recommends admission for colonoscopy prep and repeat KUB in the morning and reassessment. Appreciate consultation recommendations. The patient and family are in agreement with plan for admission per above. Case was discussed with Dr. Olivarez, [facility] hospitalist, who will evaluate the patient for admission. Further management per admitting team. Triage Nursing notes reviewed and agree them. Prior/external medical records reviewed Vital Signs: reviewed Differential diagnosis: Esophageal foreign body, gastric foreign body, intestinal foreign body, perforation, ulceration, obstruction as well as other pathologies. ER treatment provided: See below. Imaging studies: See below Consultation(s): Dr. Cash, GI on-call Dr. Olivarez, [facility] hospitalist. HPI: Per MDM. ROS: See above HPI for pertinent positives & negatives. A total of 10 systems reviewed and were otherwise negative. VITALS:See Below PHYSICAL EXAMINATION: GENERAL: Awake, alert, in no distress, morbidly obese HENT: Normocephalic, atraumatic. Oropharynx unremarkable. EYES: Normal conjunctiva. Sclera non-icteric. NECK: Supple. No nuchal rigidity. FROM. No JVD. RESPIRATORY: Clear to auscultation. CARDIAC: Regular rate, normal rhythm. Extremities warm and well perfused. Pulses equal. ABDOMEN: Soft, non-distended. No tenderness to palpation. No rebound or guarding. No masses. MUSCULOSKELETAL: Chest examination reveals no tenderness. The back is symmetrical on inspection without obvious abnormality. There is no CVA tenderness to palpation. No joint edema. LOWER EXTREMITIES: Calves are equal size bilaterally and non-tender. No edema. No discoloration. NEURO: Normal sensorium. No sensory or motor deficits noted. SKIN: No rash or jaundice noted. Jordan Peres MD Past Med/Surg History Problem List (Updated 06/12/25 @ 21:12 by Jordan Peres MD) Ingestion of button battery (Acute) Surgical wound, non healing (Acute) Lower extremity edema (Chronic) Abnormal ankle brachial index (DARCI) (Acute) Cerumen impaction Chronic heart failure with preserved ejection fraction (HFpEF) Cystitis Hyperkalemia Weakness (Acute) MARY (acute kidney injury) (Acute) HTN (hypertension) (Acute) Acute worsening of stage 4 chronic kidney disease Hypertensive urgency Chronic constipation Skin tear of upper extremity (Acute) Closed compression fracture of L2 vertebra Osteoporotic compression fracture of spine Chronic hypoxic respiratory failure, on home oxygen therapy ICD (implantable cardioverter-defibrillator) battery depletion Abnormal CT scan, chest History of COVID-19 Morbid obesity COVID-19 in immunocompromised patient Lower extremity weakness Lumbar disc herniation with radiculopathy Lumbar spinal stenosis Atrial fibrillation Anxiety and depression Degenerative lumbar spinal stenosis Influenza A Ambulatory dysfunction (Acute) Callus of foot Hypoglycemia due to insulin Diabetic neuropathy (Chronic) Chronic kidney disease, stage IV (severe) GERD (gastroesophageal reflux disease) Rheumatoid arthritis DMII (diabetes mellitus, type 2) Hyponatremia Acute hypoxemic respiratory failure due to COVID-19 (Acute) COVID-19 (Acute ~03/2021) Abnormal CT of the abdomen GERD (gastroesophageal reflux disease) (Chronic) Secondary hyperparathyroidism (Chronic) SNHL (sensorineural hearing loss) Paroxysmal atrial fibrillation (Chronic) Degenerative joint disease (DJD) of lumbar spine (Chronic) Anticoagulant long-term use (Chronic) Diverticulosis of sigmoid colon (Chronic) Diabetic peripheral neuropathy associated with type 2 diabetes mellitus (Chronic) Diabetes mellitus (Chronic) Obstructive sleep apnea of adult Loss of protective sensation of skin of foot (Chronic) Dysesthesia (Chronic) Asymmetrical right sensorineural hearing loss Breast mass Lower back pain Frequent PVCs Ventricular bigeminy (Acute) Hypophosphatemia Chronic anticoagulation (Chronic) Abnormal CT of the abdomen Sensorineural hearing loss (SNHL) of both ears Chronic systolic congestive heart failure (Chronic) Non-ischemic cardiomyopathy (Chronic) Biventricular ICD (implantable cardioverter-defibrillator) in place (Chronic 2016) [facility]>GETS CHECKED BY DR. VARGAS Dyslipidemia (Chronic) Hypertension (Chronic) Rheumatoid arthritis (Chronic) Stage III chronic kidney disease (Chronic) Medical History Chronic diarrhea Degenerative disc disease Diabetes mellitus, type 2 Hx of squamous cell carcinoma CARRILLO (dyspnea on exertion) History of basal cell carcinoma GERD without esophagitis PAC (premature atrial contraction) Third degree AV block Surgical History H/O basal cell carcinoma excision History of anesthesia reaction CONFUSION WITH GALLBLADDER REMOVAL, AWARENESS DURING COLONOSCOPY History of esophagogastroduodenoscopy (EGD) History of colonoscopy History of tooth extraction History of cataract surgery RT/LEFT S/P tubal ligation S/P total knee arthroplasty RT/LEFT S/P cholecystectomy Family History Father Heart disease Mother Diabetes Heart disease Myocardial infarction Family history of diabetes mellitus Grandfather (Maternal) Prostate cancer Family history of diabetes mellitus Other Family history non-contributory No family history of adverse response to anesthesia Denies family history of Ovarian cancer Breast cancer Colorectal cancer Social History Smoking Status: Never smoker Second Hand Exposure: No; Do You Dip or Chew Tobacco: Yes; Hx Alcohol Use: No Hx Substance Use: No Preferred Language: [place] Verdean Communication Ability: Effective Communication Ability Comment: pt does have earring aids Visual Impairment: No Limitations Hearing Ability: Use of Hearing Aid Large 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 Required: No Beliefs That Will Affect Care: None marital status: Single Current Living Situation: Personal Care Facility Current Living Situation Comment: [facility] current occupational status: retired Feels Safe at Home: Yes Childhood Exposure to Second-Hand Smoke: Yes Diet: regular caffeine: No during the past year weight has: remained stable Dental Care, Regularly: Yes Physical Activity Frequency: Does not Exercise Seatbelt Use: always Sunscreen Use: Yes Assistive Devices: Glasses, Hearing Aid - Bilateral, Oxygen - Continuous, Walker and Wheelchair Allergies Allergies Allergy/AdvReac Type Severity Reaction Status Date / Time amiodarone AdvReac Intermediate gi distress Verified 06/01/25 11:04 aspirin AdvReac Intermediate history of Verified 06/01/25 11:04 ulcers nortriptyline AdvReac Unknown DOESN'T Verified 06/01/25 11:04 REMEMBER Home Meds Home Medications Medication Instructions Recorded Confirmed acetaminophen 500 mg tablet 1,000 mg PO BID 06/12/25 06/13/25 albuterol sulfate 90 mcg/actuation 2 inh inhalation QID PRN Shortness 06/12/25 06/12/25 breath activated powder inhaler Of Breath Or Wheezing amlodipine 5 mg tablet 5 mg PO DAILY 06/12/25 06/13/25 apixaban 2.5 mg tablet (Eliquis) 2.5 mg PO BID 06/12/25 06/13/25 atorvastatin 10 mg tablet 10 mg PO DAILY 06/12/25 06/13/25 buspirone 7.5 mg tablet 7.5 mg PO TID 06/12/25 06/13/25 calcium carbonate 300 mg PO TID PRN Heartburn 06/12/25 06/12/25 cholecalciferol (vitamin D3) 50 50 mcg PO DAILY 06/12/25 06/13/25 mcg (2,000 unit) capsule (Vitamin D3) docusate sodium 100 mg capsule 100 mg PO DAILY 06/12/25 06/13/25 (Colace) folic acid 1 mg tablet 1 mg PO DAILY 06/12/25 06/13/25 furosemide 40 mg tablet 40 mg PO DAILY 06/12/25 06/13/25 gabapentin 100 mg capsule 100 mg PO DAILY 06/12/25 06/13/25 gabapentin 300 mg capsule 300 mg PO HS 06/12/25 06/13/25 insulin glargine 100 unit/mL (3 18 unit subcut QAM 06/12/25 06/13/25 mL) subcutaneous pen (Lantus Solostar U-100 Insulin) lidocaine HCl 4 % topical patch 1 patch topical DAILY PRN Pain 06/12/25 06/12/25 loperamide 2 mg capsule 2 mg PO DAILY PRN Diarrhea 06/12/25 06/12/25 lorazepam 1 mg tablet 1 mg PO BID 06/12/25 06/13/25 lorazepam 1 mg tablet 1 mg PO DAILY PRN Anxiety 06/12/25 06/12/25 methotrexate sodium 2.5 mg tablet 5 mg PO WK 06/12/25 06/13/25 montelukast 10 mg tablet 10 mg PO HS 06/12/25 06/13/25 multivitamin (Daily-Kerry tablet) 1 tab PO DAILY 06/12/25 06/13/25 ondansetron 4 mg disintegrating 4 mg PO DAILY PRN Nausea And 06/12/25 06/12/25 tablet Vomiting pantoprazole 40 mg tablet,delayed 40 mg PO BID 06/12/25 06/13/25 release (Protonix) polyethylene glycol 3350 17 gram 17 g PO DAILY PRN Constipation 06/12/25 06/12/25 oral powder packet (Miralax) quetiapine 25 mg tablet 25 mg PO HS 06/12/25 06/12/25 simethicone 180 mg capsule 180 mg PO TID bloating 06/12/25 06/13/25 spironolactone 25 mg tablet 12.5 mg PO DAILY 06/12/25 06/13/25 venlafaxine 75 mg tablet,extended 75 mg PO HS 06/12/25 06/13/25 release 24 hr vit C 250 mg-vit E 90 mg-zinc 40 1 tab PO BID 06/12/25 06/13/25 mg-copper 1 [id number] capsule (PreserVision AREDS-2) vitamin B complex 1 tab PO DAILY 06/12/25 06/13/25 diclofenac sodium 1 % topical gel 2 g topical QID PRN ARTHRITIS 06/13/25 06/13/25 doxycycline hyclate 100 mg tablet 100 mg PO BID 06/13/25 06/13/25 hydrocodone 5 mg-acetaminophen 325 1 tab PO TID 06/13/25 06/13/25 mg tablet metoprolol succinate 200 mg 200 mg PO DAILY 06/13/25 06/13/25 tablet,extended release 24 hr (Toprol XL) nystatin 100,000 unit/gram topical 1 applic topical BID 06/13/25 06/13/25 cream tocilizumab-aazg 162 mg/0.9 mL 162 mg subcut Q7D 06/13/25 06/13/25 subcutaneous pen injector ([employer] Autoinjector) Results & Data (ED) Vital Signs Vital Signs - 24 hr 06/12/25 18:51 06/12/25 22:04 Temperature 36.5 C Temperature Source Temporal Artery Scan Pulse Rate 81 Pulse Rate [Finger] 82 Respiratory Rate 18 18 Respiratory Effort / Characteristics Non-Labored Spontaneous Respiratory Depth Normal Normal Blood Pressure 160/91 H Blood Pressure [Right Arm] 191/106 H Blood Pressure Mean 114 Blood Pressure Mean [Right Arm] 134 Blood Pressure Position [Right Arm] Semi-fowlers Pulse Oximetry 92 94 Oxygen Delivery Method Room Air Room Air Sepsis Recent Fever Within 48 Hours No Sepsis New/Unexplained Change in Mental Status No Sepsis Action Taken by Nursing No Action Required Administered Medications Lactated Ringer's (Lr) 1,000 mls @ 80 mls/hr IV .[id number] [facility] Stop: 06/16/25 01:31 Last Admin: 06/13/25 02:02 Dose: 80 mls/hr Documented By: HORACE Insulin Aspart (Insulin Aspart Per Unit Charge) 0 units SC Q6 NIHARIKA Stop: 07/13/25 01:31 Last Admin: 06/13/25 02:01 Dose: 3 units Documented By: HORACE Co-signed By: LAMONT Discontinued Medications Hydrocodone Bitart/Acetaminophen (Hydrocodone/Acetaminophen 10/325 Tab) 1 tab PO NOW STA Stop: 06/12/25 23:45 Last Admin: 06/13/25 00:33 Dose: 1 tab Documented By: DUNG Buspirone HCl (Buspirone 7.5 Mg Tab) 7.5 mg PO NOW STA Stop: 06/12/25 23:45 Last Admin: 06/13/25 00:31 Dose: 7.5 mg Documented By: DUNG Gabapentin (Gabapentin 300 Mg Cap) 300 mg PO NOW STA Stop: 06/12/25 23:45 Last Admin: 06/13/25 00:31 Dose: 300 mg Documented By: DUNG Pantoprazole Sodium (Protonix) 40 mg in 10 mls @ 5 mls/min IV NOW ONE Stop: 06/12/25 23:45 Last Admin: 06/13/25 00:33 Dose: 5 mls/min Documented By: DUNG Lorazepam (Lorazepam 1 Mg Tab) 1 mg PO NOW STA Stop: 06/12/25 23:45 Last Admin: 06/13/25 00:33 Dose: 1 mg Documented By: DUNG Polyethylene Glycol/Electrolytes (Lavage Solution 4000ml) 8 dose PO BID@0600,2100 STA Stop: 06/12/25 21:18 Last Admin: 06/12/25 22:11 Dose: 8 dose Documented By: MYRON Quetiapine Fumarate (Quetiapine Fumarate 25 Mg Tablet) 25 mg PO NOW STA Stop: 06/12/25 23:45 Last Admin: 06/13/25 00:31 Dose: 25 mg Documented By: DUNG Imaging Data Radiologist's Impression: Chest X-Ray 06/12/25 18:56 Exam: Chest one view portable. Reason for exam: Swallowed hearing aid battery. Previous studies: 12/09/2024. FINDINGS: Left-sided pacemaker is again noted. Heart remains enlarged without acute failure. Lungs show no active infiltrate or edema. Granuloma again seen in the right upper lobe. IMPRESSION: Stable cardiomegaly. Otherwise no acute disease seen at this time. Electronically signed by Abner Tabor 06-12-2025 8:32 PM KUB X-Ray 06/12/25 18:56 Exam: X-ray abdomen one view Reason for exam: Swallowed hearing aid battery. Previous studies: 04/10/2024 FINDINGS: An approximate 9 mm metallic density is seen in the left upper quadrant presumably representing the battery within the stomach. Bowel pattern is otherwise nonspecific. No bowel obstruction seen. Clips from previous cholecystectomy are noted. IMPRESSION: Confirmation of the foreign body in the left upper quadrant, presumably within the stomach. Electronically signed by Abner Tabor 06-12-2025 8:31 PM Abdomen/Pelvis CT 06/12/25 19:56 Exam(s): CT ABDOMEN + PELVIS Without Contrast EXAM: CT Abdomen and Pelvis Without Intravenous Contrast CLINICAL HISTORY: Reason for exam: Swallowed button battery. TECHNIQUE: Axial computed tomography images of the abdomen and pelvis without intravenous contrast. CTDI is 27.11 mGy and DLP is 1363.43 mGy-cm. Automated exposure control was utilized for the study. A dose lowering technique was utilized adhering to the principles of ALARA. COMPARISON: 10/03/2023 FINDINGS: ABDOMEN: Liver: Unremarkable. Gallbladder and bile ducts: Cholecystectomy. Pneumobilia secondary to prior sphincterotomy. Pancreas: Unremarkable. Spleen: Unremarkable. Adrenals: Unremarkable. Kidneys and ureters: Multiple cortical cysts in the kidneys bilaterally many of which are hyperdense likely representing hemorrhagic cysts. No hydronephrosis. Stomach and bowel: Button battery located within the stomach. Colonic diverticulosis without acute diverticulitis. PELVIS: Appendix: No findings to suggest acute appendicitis. Bladder: Unremarkable. Reproductive: Unremarkable as visualized. ABDOMEN and PELVIS: Intraperitoneal space: Unremarkable. No free air. No significant fluid collection. Bones/joints: Severe degenerative changes in the lumbar spine. Chronic appearing compression fracture at L2. Soft tissues: Unremarkable. Vasculature: Moderate aorto bi-iliac atherosclerotic calcifications. Lymph nodes: Unremarkable. IMPRESSION: Button battery located within the stomach. Electronically signed by: Ash Ceballos MD 06/12/25 20:35 PM Discharge Plan Visit Data Chief Complaint: Foreign Body Stated Complaint: POSSIBLE HAIRING AID INJESTION ED Provider: Jordan Peres Discharge Problem: Ingestion of button battery Patient Disposition: Admitted As Inpatient Condition: Fair Discharge Instructions Interventions: ED Discharge Assessment Last Done: 06/13/25 01:31 Discharge Problem: Ingestion of button battery Qualifiers: Encounter type: initial encounter Qualified Code(s): T18.9XXA - Foreign body of alimentary tract, part unspecified, initial encounter
--- NOTE | 2025-06-12 20:31 | XRay Report ---
Exam: X-ray abdomen one view Reason for exam: Swallowed hearing aid battery. Previous studies: 04/10/2024 FINDINGS: An approximate 9 mm metallic density is seen in the left upper quadrant presumably representing the battery within the stomach. Bowel pattern is otherwise nonspecific. No bowel obstruction seen. Clips from previous cholecystectomy are noted. IMPRESSION: Confirmation of the foreign body in the left upper quadrant, presumably within the stomach. Electronically signed by Abner Tabor 06-12-2025 8:31 PM
--- NOTE | 2025-06-12 20:33 | XRay Report ---
Exam: Chest one view portable. Reason for exam: Swallowed hearing aid battery. Previous studies: 12/09/2024. FINDINGS: Left-sided pacemaker is again noted. Heart remains enlarged without acute failure. Lungs show no active infiltrate or edema. Granuloma again seen in the right upper lobe. IMPRESSION: Stable cardiomegaly. Otherwise no acute disease seen at this time. Electronically signed by Abner Tabor 06-12-2025 8:32 PM
--- NOTE | 2025-06-12 20:36 | CT Scan Report ---
Exam(s): CT ABDOMEN + PELVIS Without Contrast EXAM: CT Abdomen and Pelvis Without Intravenous Contrast CLINICAL HISTORY: Reason for exam: Swallowed button battery. TECHNIQUE: Axial computed tomography images of the abdomen and pelvis without intravenous contrast. CTDI is 27.11 mGy and DLP is 1363.43 mGy-cm. Automated exposure control was utilized for the study. A dose lowering technique was utilized adhering to the principles of ALARA. COMPARISON: 10/03/2023 FINDINGS: ABDOMEN: Liver: Unremarkable. Gallbladder and bile ducts: Cholecystectomy. Pneumobilia secondary to prior sphincterotomy. Pancreas: Unremarkable. Spleen: Unremarkable. Adrenals: Unremarkable. Kidneys and ureters: Multiple cortical cysts in the kidneys bilaterally many of which are hyperdense likely representing hemorrhagic cysts. No hydronephrosis. Stomach and bowel: Button battery located within the stomach. Colonic diverticulosis without acute diverticulitis. PELVIS: Appendix: No findings to suggest acute appendicitis. Bladder: Unremarkable. Reproductive: Unremarkable as visualized. ABDOMEN and PELVIS: Intraperitoneal space: Unremarkable. No free air. No significant fluid collection. Bones/joints: Severe degenerative changes in the lumbar spine. Chronic appearing compression fracture at L2. Soft tissues: Unremarkable. Vasculature: Moderate aorto bi-iliac atherosclerotic calcifications. Lymph nodes: Unremarkable. IMPRESSION: Button battery located within the stomach. Electronically signed by: Ash Ceballos MD 06/12/25 20:35 PM
[2025-06-12] MEDS ORDERED: LAVAGE SOLUTION 4000ML PO STA (21:03)
[2025-06-12] MEDS: LAVAGE SOLUTION 4000ML PO STA (22:11)
--- NOTE | 2025-06-13 00:02 | History & Physical Report ---
Date of Service June 12, 2025 Assessment & Plan (1) Ingestion of button battery: Plan: 89-year-old female with past medical history significant for paroxysmal atrial fibrillation on Eliquis, chronic kidney disease stage IV, type 2 diabetes, nonischemic cardiomyopathy EF 20 to 25% subsequently improved to 60 to 65%, status post biventricular ICD, obstructive sleep apnea intolerant to CPAP, chronic hypoxic respiratory 24/7 oxygen, rheumatoid arthritis, degenerative disease who currently residing at [facility] was brought in by son because she ingested her hearing aids. Seems patient mistakenly thought her hearing aid for a hard candy chewed it and swallowed it. Son brought the remaining part of the hearing aid it looks like she chewed battery casing and swallowed the battery. Seems it happened around 2 PM but patient did not tell her family until this evening after she had a full dinner. Patient denies any abdominal pain. No nausea. No chest pain. Has chronic hip pain. No shortness of breath. No cough. No fevers. Patient is wheelchair-bound but can transfer to the wheelchair as per the son. ER discussed with GI on-call and CAT scan showed the battery in the stomach. Plan to give colonoscopy prep and repeat KUB in AM. If battery still in the stomach tomorrow GI will attempt to take it out. Currently patient resting comfortably and hemodynamically stable. Son gave a number to call if patient swallowed a battery. The number seems to be poison control number and is not working but advised to call a different number. Called the [facility] poison control and they said those numbers are for families to call if the patient is at home and once patients come to the hospital Poison control defers the management to GI but nonetheless they said they will follow the patient's outcome. Ingestion of hearing aid battery GI notified by surgery CAT scan shows battery in the stomach Plan to give colonoscopy prep tonight Repeat KUB in a.m. If still in stomach GI will attempt to take it out . Consult GI in a.m. for further recommendations N.p.o. for now Gentle fluids Diabetes Cut back on Lantus to 12 units daily as patient n.p.o. Sliding scale Will monitor Obstructive sleep apnea Nontolerant to CPAP Chronic hypoxic respiratory failure 24/7 oxygen Chronic heart failure with preserved ejection fraction History of nonischemic cardiopathy EF 20-25 subsequently improved to 60 to 65% Status post biventricular ICD Getting gentle fluids Monitor for volume overload Continue home Lasix and spironolactone Paroxysmal atrial fibrillation On Toprol-XL 200 mg daily Holding Eliquis for now CKD stage IV Creatinine around 2 Will follow labs Rheumatoid arthritis Will hold methotrexate for now Anxiety and depression Continue home medications Chronic pain Continue pain medications DVT prophylaxis SCDs for now Restart Eliquis when able to Ambulatory dysfunction Wheelchair-bound Can transfer to wheelchair CODE STATUS Full code if there is chance of recovery Disposition Telemetry History of Present Illness Chief Complaint: Foreign body ingestion Primary Care Provider: [facility] 89-year-old female with past medical history significant for paroxysmal atrial fibrillation on Eliquis, chronic kidney disease stage IV, type 2 diabetes, nonischemic cardiomyopathy EF 20 to 25% subsequently improved to 60 to 65%, status post biventricular ICD, obstructive sleep apnea intolerant to CPAP, chronic hypoxic respiratory 24/7 oxygen, rheumatoid arthritis, degenerative disease who currently residing at [facility] was brought in by son because she ingested her hearing aids. Seems patient mistakenly thought her hearing aid for a hard candy chewed it and swallowed it. Son brought the remaining part of the hearing aid it looks like she chewed battery casing and swallowed the battery. Seems it happened around 2 PM but patient did not tell her family until this evening after she had a full dinner. Patient denies any abdominal pain. No nausea. No chest pain. Has chronic hip pain. No shortness of breath. No cough. No fevers. Patient is wheelchair-bound but can transfer to the wheelchair as per the son. ER discussed with GI on-call and CAT scan showed the battery in the stomach. Plan to give colonoscopy prep and repeat KUB in AM. If battery still in the stomach tomorrow GI will attempt to take it out. Currently patient resting comfortably and hemodynamically stable. Son gave a number to call if patient swallowed a battery. The number seems to be poison control number and is not working but advised to call a different number. Called the [facility] poison control and they said those numbers are for f amilies to call if the patient is at home and once patients come to the hospital Poison control defers the management to GI but nonetheless they said they will follow the patient's outcome. Past medical history. As mentioned above. Past surgical history. EGD. Colonoscopy. Tooth extraction. Cataract surgery. Status post tubal ligation. Status post total knee arthroplasty .s/p cholecystectomy. Social history. No smoking. No alcohol use. No drug use. Family history. Father had heart disease. Mother had diabetes and heart disease. Maternal grandfather had prostate cancer. Allergies Allergy/AdvReac Type Severity Reaction Status Date / Time amiodarone AdvReac Intermediate gi distress Verified 06/01/25 11:04 aspirin AdvReac Intermediate history of Verified 06/01/25 11:04 ulcers nortriptyline AdvReac Unknown DOESN'T Verified 06/01/25 11:04 REMEMBER Home Medications Medication Instructions Recorded Confirmed Type acetaminophen 500 mg tablet 1,000 mg PO BID 06/12/25 06/13/25 History albuterol sulfate 90 mcg/actuation 2 inh inhalation QID PRN Shortness 06/12/25 06/12/25 History breath activated powder inhaler Of Breath Or Wheezing amlodipine 5 mg tablet 5 mg PO DAILY 06/12/25 06/13/25 History apixaban 2.5 mg tablet (Eliquis) 2.5 mg PO BID 06/12/25 06/13/25 History atorvastatin 10 mg tablet 10 mg PO DAILY 06/12/25 06/13/25 History buspirone 7.5 mg tablet 7.5 mg PO TID 06/12/25 06/13/25 History calcium carbonate 300 mg PO TID PRN Heartburn 06/12/25 06/12/25 History cholecalciferol (vitamin D3) 50 50 mcg PO DAILY 06/12/25 06/13/25 History mcg (2,000 unit) capsule (Vitamin D3) docusate sodium 100 mg capsule 100 mg PO DAILY 06/12/25 06/13/25 History (Colace) folic acid 1 mg tablet 1 mg PO DAILY 06/12/25 06/13/25 History furosemide 40 mg tablet 40 mg PO DAILY 06/12/25 06/13/25 History gabapentin 100 mg capsule 100 mg PO DAILY 06/12/25 06/13/25 History gabapentin 300 mg capsule 300 mg PO HS 06/12/25 06/13/25 History insulin glargine 100 unit/mL (3 18 unit subcut QAM 06/12/25 06/13/25 History mL) subcutaneous pen (Lantus Solostar U-100 Insulin) lidocaine HCl 4 % topical patch 1 patch topical DAILY PRN Pain 06/12/25 06/12/25 History loperamide 2 mg capsule 2 mg PO DAILY PRN Diarrhea 06/12/25 06/12/25 History lorazepam 1 mg tablet 1 mg PO BID 06/12/25 06/13/25 History lorazepam 1 mg tablet 1 mg PO DAILY PRN Anxiety 06/12/25 06/12/25 History methotrexate sodium 2.5 mg tablet 5 mg PO WK 06/12/25 06/13/25 History montelukast 10 mg tablet 10 mg PO HS 06/12/25 06/13/25 History multivitamin (Daily-Kerry tablet) 1 tab PO DAILY 06/12/25 06/13/25 History ondansetron 4 mg disintegrating 4 mg PO DAILY PRN Nausea And 06/12/25 06/12/25 History tablet Vomiting pantoprazole 40 mg tablet,delayed 40 mg PO BID 06/12/25 06/13/25 History release (Protonix) polyethylene glycol 3350 17 gram 17 g PO DAILY PRN Constipation 06/12/25 06/12/25 History oral powder packet (Miralax) quetiapine 25 mg tablet 25 mg PO HS 06/12/25 06/12/25 History simethicone 180 mg capsule 180 mg PO TID bloating 06/12/25 06/13/25 History spironolactone 25 mg tablet 12.5 mg PO DAILY 06/12/25 06/13/25 History venlafaxine 75 mg tablet,extended 75 mg PO HS 06/12/25 06/13/25 History release 24 hr vit C 250 mg-vit E 90 mg-zinc 40 1 tab PO BID 06/12/25 06/13/25 History mg-copper 1 [id number] capsule (PreserVision AREDS-2) vitamin B complex 1 tab PO DAILY 06/12/25 06/13/25 History diclofenac sodium 1 % topical gel 2 g topical QID PRN ARTHRITIS 06/13/25 06/13/25 History doxycycline hyclate 100 mg tablet 100 mg PO BID 06/13/25 06/13/25 History hydrocodone 5 mg-acetaminophen 325 1 tab PO TID 06/13/25 06/13/25 History mg tablet metoprolol succinate 200 mg 200 mg PO DAILY 06/13/25 06/13/25 History tablet,extended release 24 hr (Toprol XL) nystatin 100,000 unit/gram topical 1 applic topical BID 06/13/25 06/13/25 History cream tocilizumab-aazg 162 mg/0.9 mL 162 mg subcut Q7D 06/13/25 06/13/25 History subcutaneous pen injector (Nasir Autoinjector) Past Med/Surg History Problem List (Updated 06/12/25 @ 21:12 by Jordan Peres MD) Ingestion of button battery (Acute) Surgical wound, non healing (Acute) Lower extremity edema (Chronic) Abnormal ankle brachial index (DARCI) (Acute) Cerumen impaction Chronic heart failure with preserved ejection fraction (HFpEF) Cystitis Hyperkalemia Weakness (Acute) MARY (acute kidney injury) (Acute) HTN (hypertension) (Acute) Acute worsening of stage 4 chronic kidney disease Hypertensive urgency Chronic constipation Skin tear of upper extremity (Acute) Closed compression fracture of L2 vertebra Osteoporotic compression fracture of spine Chronic hypoxic respiratory failure, on home oxygen therapy ICD (implantable cardioverter-defibrillator) battery depletion Abnormal CT scan, chest History of COVID-19 Morbid obesity COVID-19 in immunocompromised patient Lower extremity weakness Lumbar disc herniation with radiculopathy Lumbar spinal stenosis Atrial fibrillation Anxiety and depression Degenerative lumbar spinal stenosis Influenza A Ambulatory dysfunction (Acute) Callus of foot Hypoglycemia due to insulin Diabetic neuropathy (Chronic) Chronic kidney disease, stage IV (severe) GERD (gastroesophageal reflux disease) Rheumatoid arthritis DMII (diabetes mellitus, type 2) Hyponatremia Acute hypoxemic respiratory failure due to COVID-19 (Acute) COVID-19 (Acute ~03/2021) Abnormal CT of the abdomen GERD (gastroesophageal reflux disease) (Chronic) Secondary hyperparathyroidism (Chronic) SNHL (sensorineural hearing loss) Paroxysmal atrial fibrillation (Chronic) Degenerative joint disease (DJD) of lumbar spine (Chronic) Anticoagulant long-term use (Chronic) Diverticulosis of sigmoid colon (Chronic) Diabetic peripheral neuropathy associated with type 2 diabetes mellitus (Chronic) Diabetes mellitus (Chronic) Obstructive sleep apnea of adult Loss of protective sensation of skin of foot (Chronic) Dysesthesia (Chronic) Asymmetrical right sensorineural hearing loss Breast mass Lower back pain Frequent PVCs Ventricular bigeminy (Acute) Hypophosphatemia Chronic anticoagulation (Chronic) Abnormal CT of the abdomen Sensorineural hearing loss (SNHL) of both ears Chronic systolic congestive heart failure (Chronic) Non-ischemic cardiomyopathy (Chronic) Biventricular ICD (implantable cardioverter-defibrillator) in place (Chronic 2016) [employer]>GETS CHECKED BY DR. VARGAS Dyslipidemia (Chronic) Hypertension (Chronic) Rheumatoid arthritis (Chronic) Stage III chronic kidney disease (Chronic) Medical History Chronic diarrhea Degenerative disc disease Diabetes mellitus, type 2 Hx of squamous cell carcinoma CARRILLO (dyspnea on exertion) History of basal cell carcinoma GERD without esophagitis PAC (premature atrial contraction) Third degree AV block Surgical History H/O basal cell carcinoma excision History of anesthesia reaction CONFUSION WITH GALLBLADDER REMOVAL, AWARENESS DURING COLONOSCOPY History of esophagogastroduodenoscopy (EGD) History of colonoscopy History of tooth extraction History of cataract surgery RT/LEFT S/P tubal ligation S/P total knee arthroplasty RT/LEFT S/P cholecystectomy Family History Father Heart disease Mother Diabetes Heart disease Myocardial infarction Family history of diabetes mellitus Grandfather (Maternal) Prostate cancer Family history of diabetes mellitus Other Family history non-contributory No family history of adverse response to anesthesia Denies family history of Ovarian cancer Breast cancer Colorectal cancer Social History Smoking Status: Never smoker Second Hand Exposure: No; Do You Dip or Chew Tobacco: Yes; Hx Alcohol Use: No Hx Substance Use: No Preferred Language: Montserratian Communication Ability: Effective Communication Ability Comment: pt does have earring aids Visual Impairment: No Limitations Hearing Ability: Use of Hearing Aid Anesthesiology Faculty Required: No Beliefs That Will Affect Care: None marital status: Single Current Living Situation: Personal Care Facility Current Living Situation Comment: [facility] current occupational status: retired Feels Safe at Home: Yes Childhood Exposure to Second-Hand Smoke: Yes Diet: regular caffeine: No during the past year weight has: remained stable Dental Care, Regularly: Yes Physical Activity Frequency: Does not Exercise Seatbelt Use: always Sunscreen Use: Yes Assistive Devices: Glasses, Hearing Aid - Bilateral, Oxygen - Continuous, Walker and Wheelchair Review of Systems Review of Systems: All systems reviewed & are unremarkable except as noted in HPI & below Physical Exam Physical Exam: General-Not in distress. Hard of hearing Head- atraumatic Eyes- PERRL. ENT- oropharynx clear Neck- supple, no JVD. Lungs- clear to auscultation no wheezing or crackles Heart- regular rhythm; no murmur, no gallop. Abdomen- normal bowel sounds, soft, nontender, no distension Extremities- b/l lower extremity edema present, no erythema seen Neuro- alert, oriented ; PERRL, no facial palsy; no dysarthria; moves extremities Results & Data Results & Data Vital Signs (Past 12 Hours) Vital Signs Temp Pulse Pulse Resp BP BP Pulse Ox 06/12/25 22:04 82 18 191/106 H 94 06/12/25 18:51 36.5 C 81 18 160/91 H 92 O2 Del Method 06/12/25 22:04 Room Air 06/12/25 18:51 Room Air Diagnostic Findings Impressions Chest X-Ray 06/12/25 18:56 Exam: Chest one view portable. Reason for exam: Swallowed hearing aid battery. Previous studies: 12/09/2024. FINDINGS: Left-sided pacemaker is again noted. Heart remains enlarged without acute failure. Lungs show no active infiltrate or edema. Granuloma again seen in the right upper lobe. IMPRESSION: Stable cardiomegaly. Otherwise no acute disease seen at this time. Electronically signed by Abner Tabor 06-12-2025 8:32 PM KUB X-Ray 06/12/25 18:56 Exam: X-ray abdomen one view Reason for exam: Swallowed hearing aid battery. Previous studies: 04/10/2024 FINDINGS: An approximate 9 mm metallic density is seen in the left upper quadrant presumably representing the battery within the stomach. Bowel pattern is otherwise nonspecific. No bowel obstruction seen. Clips from previous cholecystectomy are noted. IMPRESSION: Confirmation of the foreign body in the left upper quadrant, presumably within the stomach. Electronically signed by Abner Tabor 06-12-2025 8:31 PM Abdomen/Pelvis CT 06/12/25 19:56 Exam(s): CT ABDOMEN + PELVIS Without Contrast EXAM: CT Abdomen and Pelvis Without Intravenous Contrast CLINICAL HISTORY: Reason for exam: Swallowed button battery. TECHNIQUE: Axial computed tomography images of the abdomen and pelvis without intravenous contrast. CTDI is 27.11 mGy and DLP is 1363.43 mGy-cm. Automated exposure control was utilized for the study. A dose lowering technique was utilized adhering to the principles of ALARA. COMPARISON: 10/03/2023 FINDINGS: ABDOMEN: Liver: Unremarkable. Gallbladder and bile ducts: Cholecystectomy. Pneumobilia secondary to prior sphincterotomy. Pancreas: Unremarkable. Spleen: Unremarkable. Adrenals: Unremarkable. Kidneys and ureters: Multiple cortical cysts in the kidneys bilaterally many of which are hyperdense likely representing hemorrhagic cysts. No hydronephrosis. Stomach and bowel: Button battery located within the stomach. Colonic diverticulosis without acute diverticulitis. PELVIS: Appendix: No findings to suggest acute appendicitis. Bladder: Unremarkable. Reproductive: Unremarkable as visualized. ABDOMEN and PELVIS: Intraperitoneal space: Unremarkable. No free air. No significant fluid collection. Bones/joints: Severe degenerative changes in the lumbar spine. Chronic appearing compression fracture at L2. Soft tissues: Unremarkable. Vasculature: Moderate aorto bi-iliac atherosclerotic calcifications. Lymph nodes: Unremarkable. IMPRESSION: Button battery located within the stomach. Electronically signed by: Ash Ceballos MD 06/12/25 20:35 PM Code Status & VTE Plan VTE Prophylaxis Plan VTE Prophylaxis will be ordered: Yes (1) Ingestion of button battery Encounter type: initial encounter Qualified Code(s): T18.9XXA - Foreign body of alimentary tract, part unspecified, initial encounter; W44.A1XA - Button battery entering into or through a natural orifice, initial encounter
[2025-06-13] MEDS: GABAPENTIN 300 MG CAP PO STA (00:31)
[2025-06-13] MEDS: LORazepam 1 MG TAB PO STA (00:33)
[2025-06-13] MEDS: PANTOprazole 40 MG/10 ML SYR IV ONE (00:33)
[2025-06-13] MEDS ORDERED: GLUCAGON FOR INJ 1 MG VIAL SQ PRN (01:32)
[2025-06-13] MEDS ORDERED: NITROGLYCERIN SL 0.4 MG/TAB TAB SL PRN (01:32)
[2025-06-13] MEDS ORDERED: LORazepam 1 MG TAB PO PRN (01:32)
[2025-06-13] MEDS ORDERED: GLUCOSE 10 TAB/TUBE PO PRN (01:32)
[2025-06-13] MEDS ORDERED: GLUCOSE 40% GEL 15 GM TUBE PO PRN (01:32)
[2025-06-13] MEDS ORDERED: CARBOHYDRATES FOR HYPOGLYCEMIA PO PRN (01:32)
[2025-06-13] MEDS ORDERED: DEXTROSE 50% 50 ML SYRINGE IV PRN (01:32)
[2025-06-13] MEDS ORDERED: ALBUTEROL HFA 8 GM INHALER INH PRN (01:48)
[2025-06-13] MEDS ORDERED: LIDOCAINE 5% 1 PATCH TD PRN (01:49)
[2025-06-13] MEDS ORDERED: SIMETHICONE 80 MG CHEW PO PRN (01:51)
[2025-06-13] MEDS: INSULIN ASPART PER UNIT CHARGE SC SCH (02:01)
[2025-06-13] MEDS: LACTATED RINGER'S 1,000 ML IV SCH (02:02)
[2025-06-13 06:17] LABS: Hematocrit (blood only) 28.3 % (37.0-47.0); Hemoglobin 9.3 g/dL (12.0-16.0); Immature Granulocytes # (auto) 0.01 K/uL (0.01-0.20); Immature Granulocytes % (auto) 0.3 %; Mean Corpuscular Hemoglobin 33.1 pg (25.0-34.0); Mean Corpuscular Volume 100.7 fL (80.0-100.0); Platelet Count 157 K/uL (130-400); RDW Standard Deviation 56.2 fL (36.4-46.3); Red Blood Count 2.81 M/uL (4.20-5.40); White Blood Count 2.98 K/ul (4.8-10.8)
[2025-06-13 06:41] LABS: Anion Gap 10.0 (3-11); Blood Urea Nitrogen 54.0 mg/dl (6-23); Calcium 9.1 mg/dl (8.6-10.3); Carbon Dioxide 30.0 mmol/L (21-32); Chloride 102.0 mmol/L (98-107); Creatinine Clr Calc Pharmacy 20.3 ml/min; Glucose 137.0 mg/dl (70-99(Fasting)); Magnesium 1.6 mg/dl (1.7-2.4); Potassium 3.8 mmol/L (3.5-5.1); Sodium 142.0 mmol/L (136-145)
[2025-06-13 07:14] LABS: Hemoglobin A1C 6.8 % (4.5-5.6)
--- NOTE | 2025-06-13 08:29 | XRay Report ---
KUB HISTORY: foreign body COMPARISON STUDY: 06/12/2025 FINDINGS: Small rounded metallic foreign body is at the central abdomen, mildly progressed. There is mild retained stool. No bowel obstruction seen. IMPRESSION: Small metallic foreign body has progressed. Position is uncertain. It could be in the dis cesar stomach, proximal small bowel, more distal small bowel, or transverse colon. ACT 112: Negative or not required by law. The above report was generated using voice recognition software. It may contain grammatical, syntax o r spelling errors. Electronically signed by: Abner John M.D. 06/13/2025 8:27 AM
--- NOTE | 2025-06-13 09:38 | Communication Note ---
Date of Service: June 13, 2025 It looks like battery in transverse colon now. Will remove later today
[2025-06-13] MEDS: LANTUS PER UNIT CHARGE SQ SCH (09:59)
[2025-06-13] MEDS: GABAPENTIN 100 MG CAP PO SCH (09:59)
[2025-06-13] MEDS: MAGNESIUM SULFATE / D5W 1 GM/100 ML BAG IV ONE (09:59)
[2025-06-13] MEDS: PANTOprazole 40 MG/10 ML SYR IV SCH (09:59)
[2025-06-13] MEDS: FUROSEMIDE 40 MG TAB PO SCH (10:00)
[2025-06-13] MEDS: FOLIC ACID 1 MG TAB PO SCH (10:00)
[2025-06-13] MEDS: ATORVASTATIN 10 MG TAB PO SCH (10:00)
[2025-06-13] MEDS: SPIRONOLACTONE 12.5 MG TAB PO SCH (10:07)
[2025-06-13] MEDS: VITAMIN B COMPLEX TAB PO SCH (10:12)
[2025-06-13] MEDS: LORazepam 1 MG TAB PO SCH (10:12)
[2025-06-13] MEDS: CEROVITE ADV FORMULA TAB PO SCH (10:12)
[2025-06-13] MEDS: METOPROLOL SUCC 50MG EXT REL TAB PO SCH (10:12)
[2025-06-13 11:36] VITALS: TEMP 97.3
--- NOTE | 2025-06-13 11:57 | Anesthesiology Consultation ---
Date of Service June 13, 2025 Assessment & Plan Chart Review Chart Review: Acceptable Risk for Surgery Consults Requested none History Surgery Operation Date: 06/13/25 18:05 Proposed Procedures p Flexible Sigmoidoscopy Dr. Shreya Cash Jr, MD Height/Weight Height: 5 ft 6 in Weight: 103.1 kg Allergies Allergy/AdvReac Type Severity Reaction Status Date / Time amiodarone AdvReac Intermediate gi distress Verified 06/01/25 11:04 aspirin AdvReac Intermediate history of Verified 06/01/25 11:04 ulcers nortriptyline AdvReac Unknown DOESN'T Verified 06/01/25 11:04 REMEMBER Medications Home Medications Medication Instructions Recorded Confirmed Last Taken acetaminophen 500 mg tablet 1,000 mg PO BID 06/12/25 06/13/25 06/12/25 16:00 albuterol sulfate 90 mcg/actuation 2 inh inhalation QID PRN Shortness 06/12/25 06/12/25 Unknown breath activated powder inhaler Of Breath Or Wheezing amlodipine 5 mg tablet 5 mg PO DAILY 06/12/25 06/13/25 06/12/25 08:00 apixaban 2.5 mg tablet (Eliquis) 2.5 mg PO BID 06/12/25 06/13/25 06/12/25 08:00 atorvastatin 10 mg tablet 10 mg PO DAILY 06/12/25 06/13/25 06/11/25 20:00 buspirone 7.5 mg tablet 7.5 mg PO TID 06/12/25 06/13/25 06/12/25 16:00 calcium carbonate 300 mg PO TID PRN Heartburn 06/12/25 06/12/25 Unknown cholecalciferol (vitamin D3) 50 50 mcg PO DAILY 06/12/25 06/13/25 06/12/25 08:00 mcg (2,000 unit) capsule (Vitamin D3) docusate sodium 100 mg capsule 100 mg PO DAILY 06/12/25 06/13/25 06/12/25 08:00 (Colace) folic acid 1 mg tablet 1 mg PO DAILY 06/12/25 06/13/25 06/12/25 08:00 furosemide 40 mg tablet 40 mg PO DAILY 06/12/25 06/13/25 06/12/25 08:00 gabapentin 100 mg capsule 100 mg PO DAILY 06/12/25 06/13/25 06/12/25 08:00 gabapentin 300 mg capsule 300 mg PO HS 06/12/25 06/13/25 06/11/25 20:00 insulin glargine 100 unit/mL (3 18 unit subcut QAM 06/12/25 06/13/25 06/12/25 08:00 mL) subcutaneous pen (Lantus Solostar U-100 Insulin) lidocaine HCl 4 % topical patch 1 patch topical DAILY PRN Pain 06/12/25 06/12/25 Unknown loperamide 2 mg capsule 2 mg PO DAILY PRN Diarrhea 06/12/25 06/12/25 Unknown lorazepam 1 mg tablet 1 mg PO BID 06/12/25 06/13/25 06/12/25 08:00 lorazepam 1 mg tablet 1 mg PO DAILY PRN Anxiety 06/12/25 06/12/25 Unknown methotrexate sodium 2.5 mg tablet 5 mg PO WK 06/12/25 06/13/25 06/09/25 montelukast 10 mg tablet 10 mg PO HS 06/12/25 06/13/25 06/11/25 20:00 multivitamin (Daily-Kerry tablet) 1 tab PO DAILY 06/12/25 06/13/25 06/12/25 08:00 ondansetron 4 mg disintegrating 4 mg PO DAILY PRN Nausea And 06/12/25 06/12/25 Unknown tablet Vomiting pantoprazole 40 mg tablet,delayed 40 mg PO BID 06/12/25 06/13/25 06/12/25 16:00 release (Protonix) polyethylene glycol 3350 17 gram 17 g PO DAILY PRN Constipation 06/12/25 06/12/25 Unknown oral powder packet (Miralax) quetiapine 25 mg tablet 25 mg PO HS 06/12/25 06/12/25 Unknown simethicone 180 mg capsule 180 mg PO TID bloating 06/12/25 06/13/25 06/12/25 18:00 spironolactone 25 mg tablet 12.5 mg PO DAILY 06/12/25 06/13/25 06/12/25 08:00 venlafaxine 75 mg tablet,extended 75 mg PO HS 06/12/25 06/13/25 06/11/25 20:00 release 24 hr vit C 250 mg-vit E 90 mg-zinc 40 1 tab PO BID 06/12/25 06/13/25 06/12/25 08:00 mg-copper 1 [id number] capsule (PreserVision AREDS-2) vitamin B complex 1 tab PO DAILY 06/12/25 06/13/25 06/12/25 08:00 diclofenac sodium 1 % topical gel 2 g topical QID PRN ARTHRITIS 06/13/25 06/13/25 Unknown doxycycline hyclate 100 mg tablet 100 mg PO BID 06/13/25 06/13/25 06/12/25 08:00 hydrocodone 5 mg-acetaminophen 325 1 tab PO TID 06/13/25 06/13/25 06/12/25 15:00 mg tablet metoprolol succinate 200 mg 200 mg PO DAILY 06/13/25 06/13/25 06/12/25 08:00 tablet,extended release 24 hr (Toprol XL) nystatin 100,000 unit/gram topical 1 applic topical BID 06/13/25 06/13/25 06/12/25 08:00 cream tocilizumab-aazg 162 mg/0.9 mL 162 mg subcut Q7D 06/13/25 06/13/25 06/08/25 subcutaneous pen injector (Nasir Autoinjector) Active Medications Generic Name Dose Route Start Last Admin Trade Name Arcelia PRN Reason Stop Dose Admin Amlodipine Besylate 5 mg 06/13/25 09:00 06/13/25 10:00 Amlodipine Besylate 5 Mg Tab PO 07/13/25 08:59 5 mg DAILY NIHARIKA Administration Atorvastatin Calcium 10 mg 06/13/25 09:00 06/13/25 10:00 Atorvastatin 10 Mg Tab PO 07/13/25 08:59 10 mg DAILY NIHARIKA Administration Buspirone HCl 7.5 mg 06/13/25 09:00 06/13/25 10:00 Buspirone 7.5 Mg Tab PO 07/13/25 08:59 7.5 mg TID NIHARIKA Administration Folic Acid 1 mg 06/13/25 09:00 06/13/25 10:00 Folic Acid 1 Mg Tab PO 07/13/25 08:59 1 mg DAILY NIHARIKA Administration Furosemide 40 mg 06/13/25 09:00 06/13/25 10:00 Furosemide 40 Mg Tab PO 07/13/25 08:59 40 mg DAILY NIHARIKA Administration Gabapentin 100 mg 06/13/25 09:00 06/13/25 09:59 Gabapentin 100 Mg Cap PO 07/13/25 08:59 100 mg DAILY NIHARIKA Administration Lactated Ringer's 1,000 mls @ 80 mls/hr 06/13/25 01:32 06/13/25 02:02 Lr IV 06/16/25 01:31 80 mls/hr .[id number] NIHARIKA Administration Pantoprazole Sodium 40 mg in 10 mls @ 5 mls/min 06/13/25 09:00 06/13/25 09:59 Protonix IV 07/13/25 08:59 5 mls/min BID NIHARIKA Administration Insulin Aspart 0 units 06/13/25 01:32 06/13/25 06:20 Insulin Aspart Per Unit Charge SC 07/13/25 01:31 Not Given Q6 NIHARIKA Insulin Glargine 12 units 06/13/25 09:00 06/13/25 09:59 Lantus Per Unit Charge SQ 07/13/25 08:59 12 units DAILY NIHARIKA Administration Lorazepam 1 mg 06/13/25 09:00 06/13/25 10:12 Lorazepam 1 Mg Tab PO 07/13/25 08:59 1 mg BID NIHARIKA Administration Metoprolol Succinate 200 mg 06/13/25 09:00 06/13/25 10:12 Metoprolol Succ 50mg Ext Rel Tab PO 07/13/25 08:59 200 mg DAILY NIHARIKA Administration Multivitamins/Minerals 1 tab 06/13/25 09:00 06/13/25 10:12 Cerovite Adv Formula Tab PO 07/13/25 08:59 1 tab QAM NIHARIKA Administration Spironolactone 12.5 mg 06/13/25 09:00 06/13/25 10:07 Spironolactone 12.5 Mg Tab PO 07/13/25 08:59 12.5 mg DAILY NIHARIKA Administration Vitamin B Complex 1 tab 06/13/25 09:00 06/13/25 10:12 Vitamin B Complex Tab PO 07/13/25 08:59 1 tab DAILY NIHARIKA Administration NPO Date Last Intake of Fluids: 06/13/25 Time Last Intake of Fluids: 10:00 Date Last Intake of Solids: 06/12/25 Time Last Intake of Solids: 17:00 Past Medical History Medical History Chronic diarrhea Degenerative disc disease Diabetes mellitus, type 2 Hx of squamous cell carcinoma CARRILLO (dyspnea on exertion) History of basal cell carcinoma GERD without esophagitis PAC (premature atrial contraction) Third degree AV block Past Family History Family History Father Heart disease Mother Diabetes Heart disease Myocardial infarction Family history of diabetes mellitus Grandfather (Maternal) Prostate cancer Family history of diabetes mellitus Other Family history non-contributory No family history of adverse response to anesthesia Denies family history of Ovarian cancer Breast cancer Colorectal cancer Past Surgical History Surgical History H/O basal cell carcinoma excision History of anesthesia reaction CONFUSION WITH GALLBLADDER REMOVAL, AWARENESS DURING COLONOSCOPY History of esophagogastroduodenoscopy (EGD) History of colonoscopy History of tooth extraction History of cataract surgery RT/LEFT S/P tubal ligation S/P total knee arthroplasty RT/LEFT S/P cholecystectomy Social History Smoking Status: Never smoker Do You Dip or Chew Tobacco: Yes Hx Alcohol Use: No Alcohol type: wine alcohol intake frequency: holidays/special occasions only Hx Substance Use: No substance use type: does not use Physical Exam Vital Signs Last Vital Signs Temp 36.3 C L 06/13/25 11:34 Pulse 80 06/13/25 11:34 Resp 16 06/13/25 11:34 BP 171/83 H 06/13/25 11:34 Pulse Ox 95 06/13/25 11:34 O2 Del Method Room Air 06/13/25 11:34 O2 Flow Rate 4 06/13/25 11:10 Testing Laboratory Results 06/13/25 05:37 06/13/25 05:37 Hemoglobin A1c 6.8 % (4.5-5.6) H 06/13/25 05:37 06/13/25 06/13/25 06:04 01:43 POC Glucose 131 H 207 H
--- NOTE | 2025-06-13 12:02 | History & Physical Report ---
Date of Service June 13, 2025 Assessment & Plan (1) Encounter for pre-operative examination: Plan: Pleasant woman with ingested battery. Plan to remove with colonoscopy. Procedure and risks discussed. She agrees Admission and Anticipated Discharge Date Admission Date: June 12, 2025 History of Present Illness Chief Complaint: swallowed hearing aid Primary Care Provider: [facility] 89 year old female who accidentally swallowed her hearing aid yesterday afternoon. Presented to ER last night after she ate dinner. I was called and after reviewing CT the battery could be seen in the stomach in the center of a m ass of food. I did not feel that endoscopy would be successful. She was admitted, given colonoscopy prep and today the hearing aid/battery seems to be in her transverse colon Allergies Allergy/AdvReac Type Severity Reaction Status Date / Time amiodarone AdvReac Intermediate gi distress Verified 06/01/25 11:04 aspirin AdvReac Intermediate history of Verified 06/01/25 11:04 ulcers nortriptyline AdvReac Unknown DOESN'T Verified 06/01/25 11:04 REMEMBER Home Medications Medication Instructions Recorded Confirmed Type acetaminophen 500 mg tablet 1,000 mg PO BID 06/12/25 06/13/25 History albuterol sulfate 90 mcg/actuation 2 inh inhalation QID PRN Shortness 06/12/25 06/12/25 History breath activated powder inhaler Of Breath Or Wheezing amlodipine 5 mg tablet 5 mg PO DAILY 06/12/25 06/13/25 History apixaban 2.5 mg tablet (Eliquis) 2.5 mg PO BID 06/12/25 06/13/25 History atorvastatin 10 mg tablet 10 mg PO DAILY 06/12/25 06/13/25 History buspirone 7.5 mg tablet 7.5 mg PO TID 06/12/25 06/13/25 History calcium carbonate 300 mg PO TID PRN Heartburn 06/12/25 06/12/25 History cholecalciferol (vitamin D3) 50 50 mcg PO DAILY 06/12/25 06/13/25 History mcg (2,000 unit) capsule (Vitamin D3) docusate sodium 100 mg capsule 100 mg PO DAILY 06/12/25 06/13/25 History (Colace) folic acid 1 mg tablet 1 mg PO DAILY 06/12/25 06/13/25 History furosemide 40 mg tablet 40 mg PO DAILY 06/12/25 06/13/25 History gabapentin 100 mg capsule 100 mg PO DAILY 06/12/25 06/13/25 History gabapentin 300 mg capsule 300 mg PO HS 06/12/25 06/13/25 History insulin glargine 100 unit/mL (3 18 unit subcut QAM 06/12/25 06/13/25 History mL) subcutaneous pen (Lantus Solostar U-100 Insulin) lidocaine HCl 4 % topical patch 1 patch topical DAILY PRN Pain 06/12/25 06/12/25 History loperamide 2 mg capsule 2 mg PO DAILY PRN Diarrhea 06/12/25 06/12/25 History lorazepam 1 mg tablet 1 mg PO BID 06/12/25 06/13/25 History lorazepam 1 mg tablet 1 mg PO DAILY PRN Anxiety 06/12/25 06/12/25 History methotrexate sodium 2.5 mg tablet 5 mg PO WK 06/12/25 06/13/25 History montelukast 10 mg tablet 10 mg PO HS 06/12/25 06/13/25 History multivitamin (Daily-Kerry tablet) 1 tab PO DAILY 06/12/25 06/13/25 History ondansetron 4 mg disintegrating 4 mg PO DAILY PRN Nausea And 06/12/25 06/12/25 History tablet Vomiting pantoprazole 40 mg tablet,delayed 40 mg PO BID 06/12/25 06/13/25 History release (Protonix) polyethylene glycol 3350 17 gram 17 g PO DAILY PRN Constipation 06/12/25 06/12/25 History oral powder packet (Miralax) quetiapine 25 mg tablet 25 mg PO HS 06/12/25 06/12/25 History simethicone 180 mg capsule 180 mg PO TID bloating 06/12/25 06/13/25 History spironolactone 25 mg tablet 12.5 mg PO DAILY 06/12/25 06/13/25 History venlafaxine 75 mg tablet,extended 75 mg PO HS 06/12/25 06/13/25 History release 24 hr vit C 250 mg-vit E 90 mg-zinc 40 1 tab PO BID 06/12/25 06/13/25 History mg-copper 1 [id number] capsule (PreserVision AREDS-2) vitamin B complex 1 tab PO DAILY 06/12/25 06/13/25 History diclofenac sodium 1 % topical gel 2 g topical QID PRN ARTHRITIS 06/13/25 06/13/25 History doxycycline hyclate 100 mg tablet 100 mg PO BID 06/13/25 06/13/25 History hydrocodone 5 mg-acetaminophen 325 1 tab PO TID 06/13/25 06/13/25 History mg tablet metoprolol succinate 200 mg 200 mg PO DAILY 06/13/25 06/13/25 History tablet,extended release 24 hr (Toprol XL) nystatin 100,000 unit/gram topical 1 applic topical BID 06/13/25 06/13/25 History cream tocilizumab-aazg 162 mg/0.9 mL 162 mg subcut Q7D 06/13/25 06/13/25 History subcutaneous pen injector (Tyenne Autoinjector) Past Med/Surg History Problem List (Updated 06/13/25 @ 12:01 by Marlin Cash Jr, MD) Encounter for pre-operative examination Ingestion of button battery (Acute) Surgical wound, non healing (Acute) Lower extremity edema (Chronic) Abnormal ankle brachial index (DARCI) (Acute) Cerumen impaction Chronic heart failure with preserved ejection fraction (HFpEF) Cystitis Hyperkalemia Weakness (Acute) MARY (acute kidney injury) (Acute) HTN (hypertension) (Acute) Acute worsening of stage 4 chronic kidney disease Hypertensive urgency Chronic constipation Skin tear of upper extremity (Acute) Closed compression fracture of L2 vertebra Osteoporotic compression fracture of spine Chronic hypoxic respiratory failure, on home oxygen therapy ICD (implantable cardioverter-defibrillator) battery depletion Abnormal CT scan, chest History of COVID-19 Morbid obesity COVID-19 in immunocompromised patient Lower extremity weakness Lumbar disc herniation with radiculopathy Lumbar spinal stenosis Atrial fibrillation Anxiety and depression Degenerative lumbar spinal stenosis Influenza A Ambulatory dysfunction (Acute) Callus of foot Hypoglycemia due to insulin Diabetic neuropathy (Chronic) Chronic kidney disease, stage IV (severe) GERD (gastroesophageal reflux disease) Rheumatoid arthritis DMII (diabetes mellitus, type 2) Hyponatremia Acute hypoxemic respiratory failure due to COVID-19 (Acute) COVID-19 (Acute ~03/2021) Abnormal CT of the abdomen GERD (gastroesophageal reflux disease) (Chronic) Secondary hyperparathyroidism (Chronic) SNHL (sensorineural hearing loss) Paroxysmal atrial fibrillation (Chronic) Degenerative joint disease (DJD) of lumbar spine (Chronic) Anticoagulant long-term use (Chronic) Diverticulosis of sigmoid colon (Chronic) Diabetic peripheral neuropathy associated with type 2 diabetes mellitus (Chronic) Diabetes mellitus (Chronic) Obstructive sleep apnea of adult Loss of protective sensation of skin of foot (Chronic) Dysesthesia (Chronic) Asymmetrical right sensorineural hearing loss Breast mass Lower back pain Frequent PVCs Ventricular bigeminy (Acute) Hypophosphatemia Chronic anticoagulation (Chronic) Abnormal CT of the abdomen Sensorineural hearing loss (SNHL) of both ears Chronic systolic congestive heart failure (Chronic) Non-ischemic cardiomyopathy (Chronic) Biventricular ICD (implantable 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 VARGAS Dyslipidemia (Chronic) Hypertension (Chronic) Rheumatoid arthritis (Chronic) Stage III chronic kidney disease (Chronic) Medical History Chronic diarrhea Degenerative disc disease Diabetes mellitus, type 2 Hx of squamous cell carcinoma CARRILLO (dyspnea on exertion) History of basal cell carcinoma GERD without esophagitis PAC (premature atrial contraction) Third degree AV block Surgical History H/O basal cell carcinoma excision History of anesthesia reaction CONFUSION WITH GALLBLADDER REMOVAL, AWARENESS DURING COLONOSCOPY History of esophagogastroduodenoscopy (EGD) History of colonoscopy History of tooth extraction History of cataract surgery RT/LEFT S/P tubal ligation S/P total knee arthroplasty RT/LEFT S/P cholecystectomy Family History Father Heart disease Mother Diabetes Heart disease Myocardial infarction Family history of diabetes mellitus Grandfather (Maternal) Prostate cancer Family history of diabetes mellitus Other Family history non-contributory No family history of adverse response to anesthesia Denies family history of Ovarian cancer Breast cancer Colorectal cancer Social History Smoking Status: Never smoker Second Hand Exposure: No; Do You Dip or Chew Tobacco: Yes; Hx Alcohol Use: No Hx Substance Use: No Preferred Language: Albanian Communication Ability: Effective Communication Ability Comment: pt does have earring aids Visual Impairment: No Limitations Hearing Ability: Use of Hearing Aid Steward/Stewardess Deck Required: No Beliefs That Will Affect Care: None marital status: Single Current Living Situation: Personal Care Facility Current Living Situation Comment: [facility] current occupational status: retired Feels Safe at Home: Yes Childhood Exposure to Second-Hand Smoke: Yes Diet: regular caffeine: No during the past year weight has: remained stable Dental Care, Regularly: Yes Physical Activity Frequency: Does not Exercise Seatbelt Use: always Sunscreen Use: Yes Assistive Devices: Glasses, Hearing Aid - Bilateral, Oxygen - Continuous, Walker and Wheelchair Physical Exam Physical Exam: Pleasant elderly hard of hearing female in no distress Constitutional: WD/WN, vitals as above Neck: trachea midline, no thyromegaly Respiratory: normal respiratory effort, lungs clear to auscultation Cardiovascular: RRR, no murmur, no edema Gastrointestinal (Abdomen): normal bowel sounds, soft, nontender, no hepatospl enomegaly ASA Classification ASA ASA3 Results & Data Vital Signs (Past 12 Hours) Vital Signs Temp Pulse Resp BP BP Pulse Ox O2 Del Method 06/13/25 11:34 36.3 C L 80 16 171/83 H 95 Room Air 06/13/25 11:10 36.9 C 82 20 129/74 99 Nasal Cannula 06/13/25 07:45 Nasal Cannula 06/13/25 07:38 36.3 C L 94 H 23 148/77 H 93 Nasal Cannula 06/13/25 02:29 36.4 C L 83 18 144/82 H 98 Nasal Cannula 06/13/25 01:37 36.4 C L 89 20 167/88 H 96 Nasal Cannula 06/13/25 01:31 Nasal Cannula 06/13/25 01:25 Nasal Cannula 06/13/25 00:30 95 H 18 152/99 H 96 Room Air O2 Flow Rate 06/13/25 11:34 06/13/25 11:10 4 06/13/25 07:45 2.5 06/13/25 07:38 2 06/13/25 02:29 2.5 06/13/25 01:37 2.5 06/13/25 01:31 06/13/25 01:25 2.5 06/13/25 00:30 Code Status & VTE Plan VTE Prophylaxis Plan VTE Prophylaxis will be ordered: Yes
--- NOTE | 2025-06-13 12:55 | Communication Note ---
Date of Service: June 13, 2025 Complete colonoscopy performed. A couple of small pieces of plastic were seen but unable to locate battery. She has marked diverticular disease and I tried to look into each diverticulum I could see and did not see battery. At this point I think she could probably go home and she has either passed it already or it should pass on its own. Just needs to be advised to return for pain.
--- NOTE | 2025-06-13 13:28 | Communication Note ---
Date of Service: June 13, 2025 By CMS guidelines, a determination that the admission or continued stay is not medically necessary has been made by a member of the UR committee and trey gillette for this hospital stay, therefore a Code 44 will be completed and the Inpatient admission will be changed to outpatient.
--- NOTE | 2025-06-13 13:30 | Communication Note ---
By CMS guidelines, a determination that the admission or continued stay is not medically necessary has been made by a member of the UR committee and a physician for this hospital stay, therefore a Code 44 will be completed and the Inpatient admission will be changed to outpatient. Date of Service: June 13, 2025
--- NOTE | 2025-06-13 13:30 | GI REPORT ---
[facility] Patient: SWETHA MCCLOUD : 1935 Sex at : Female Age: 89 Years Procedure: Colonoscopy Date: 06/13/2025 Attending Physician: Marlin Cash MD Referring MD: Donald Shore MD Indications: - Foreign body in the colon Medications: - Monitored Anesthesia Care - See the Anesthesia note for documentation of the administered medications Complications: - No immediate complications. Estimated Blood Loss: - Estimated blood loss: None. Procedure: - ASA Grade Assessment: IV - A patient with severe systemic disease that is a constant threat to life. - The adult colonoscope was introduced through the anus and advanced to the cecum, identified by appendiceal orifice and ileocecal valve. - The colonoscopy was performed without difficulty. - The quality of the bowel preparation was evaluated using the BBPS ([place] Bowel Preparation Scale) with scores of: Right Colon = 3, Transverse Colon = 3 and Left Colon = 3 (entire mucosa seen well with no residual staining, small fragments of stool or opaque liquid). The total BBPS score equals 9. - The ileocecal valve, appendiceal orifice, and rectum were photographed. Findings: - Multiple medium-mouthed and large-mouthed diverticula were found in the sigmoid colon and descending colon. - The exam was otherwise without abnormality on direct and retroflexion views. Spent twenty minutes examining the colon. Some plastic parts of the hearing aid were found. No battery was found. I tried to look into as many diverticula as I could without seeing battery. Impression: - Diverticulosis in the sigmoid colon and in the descending colon. - The examination was otherwise normal on direct and retroflexion views. - No specimens collected. Recommendation: - Return patient to [facility] for ongoing care. Procedure Code(s): - 76696, Colonoscopy, flexible; diagnostic, including collection of specimen(s) by brushing or washing, when performed (separate procedure) Diagnosis Code(s): - T18.4XXA, Foreign body in colon, initial encounter - K57.30, Diverticulosis of large intestine without perforation or abscess without bleeding CPT(R) - 2024 copyright [employer]. All Rights Reserved. The CPT codes, CCI edits and ICD codes generated are intended as suggestions and were generated based on input data. These codes are preliminary and upon professional services specialist review may be revised to meet current compliance and payer requirements. The provider is responsible for the final determination of appropriate codes, and modifiers. Dr. Marlin Cash MD This document has been electronically signed. Note Initiated:06/13/2025 Note Completed:06/13/2025 1:29 PM \\[id number]
--- NOTE | 2025-06-13 14:10 | Anesthesiology Progress Note ---
Date of Service June 13, 2025 Anesthesia Post Procedure Vital Signs Vital Signs: Temp Pulse Pulse Resp BP BP BP 06/13/25 13:39 82 18 172/72 H 06/13/25 13:09 80 16 162/68 H 06/13/25 12:56 80 16 147/64 H 06/13/25 11:34 36.3 C L 80 16 171/83 H 06/13/25 11:10 36.9 C 82 20 129/74 06/13/25 07:45 06/13/25 07:38 36.3 C L 94 H 23 148/77 H 06/13/25 02:29 36.4 C L 83 18 144/82 H 06/13/25 01:37 36.4 C L 89 20 167/88 H 06/13/25 01:31 06/13/25 01:25 06/13/25 00:30 95 H 18 152/99 H 06/12/25 22:04 82 18 191/106 H 06/12/25 18:51 36.5 C 81 18 160/91 H Pulse Ox O2 Del Method O2 Flow Rate 06/13/25 13:39 98 Room Air 06/13/25 13:09 99 Room Air 06/13/25 12:56 99 Room Air 06/13/25 11:34 95 Room Air 06/13/25 11:10 99 Nasal Cannula 4 06/13/25 07:45 Nasal Cannula 2.5 06/13/25 07:38 93 Nasal Cannula 2 06/13/25 02:29 98 Nasal Cannula 2.5 06/13/25 01:37 96 Nasal Cannula 2.5 06/13/25 01:31 Nasal Cannula 06/13/25 01:25 Nasal Cannula 2.5 06/13/25 00:30 96 Room Air 06/12/25 22:04 94 Room Air 06/12/25 18:51 92 Room Air Transfer of Care Handoff Completed per policy Notes Mental Status: alert / awake / arousable and participated in evaluation Patient Amnestic to Procedure: Yes Nausea / Vomiting: adequately controlled Pain: adequately controlled Airway Patency, RR, SpO2: stable & adequate BP & HR: stable & adequate Hydration State: stable & adequate Anesthetic Complications: no major complications apparent
[2025-06-13] MEDS: LIDOCAINE 2% 2 ML VIAL/AMP(20MG/ML) INFIL ONE (15:16)
[2025-06-13] MEDS: PROPOFOL IV EMULSION 10 MG/ML 20 ML VIAL IV ONE (15:17)
[2025-06-13 15:42] VITALS: BP 130/72; RESP 17; O2SAT 93
--- NOTE | 2025-06-13 16:02 | Discharge Summary ---
Discharge Summary Date of Service June 13, 2025 Principal Dx & Hospital Course #1 = Principal Diagnosis (1) Ingestion of button battery: 89-year-old female with past medical history significant for paroxysmal atrial fibrillation on Eliquis, chronic kidney disease stage IV, type 2 diabetes, nonischemic cardiomyopathy EF 20 to 25% subsequently improved to 60 to 65%, status post biventricular ICD, obstructive sleep apnea intolerant to CPAP, chronic hypoxic respiratory 24/7 oxygen, rheumatoid arthritis, degenerative disease who currently residing at [facility] was brought in by son because she ingested her hearing aids. Seems patient mistakenly thought her hearing aid for a hard candy chewed it and swallowed it. Son brought the remaining part of the hearing aid it looks like she chewed battery casing and swallowed the battery. Seems it happened around 2 PM but patient did not tell her family until this evening after she had a full dinner. Patient denies any abdominal pain. No nausea. No chest pain. Has chronic hip pain. No shortness of breath. No cough. No fevers. Patient is wheelchair-bound but can transfer to the wheelchair as per the son. ER discussed with GI on-call and CAT scan showed the battery in the stomach. Plan to give colonoscopy prep and repeat KUB in AM. If battery still in the stomach tomorrow GI will attempt to take it out. Currently patient resting comfortably and hemodynamically stable. Son gave a number to call if patient swallowed a battery. The number seems to be poison control number and is not working but advised to call a different number. Called the [facility] poison control and they said those numbers are for families to call if the patient is at home and once patients come to the hospital Poison control defers the management to GI but nonetheless they said they will follow the patient's outcome. Ingestion of hearing aid battery GI notified by surgery CAT scan shows battery in the stomach Plan to give colonoscopy prep tonight Repeat KUB in a.m. If still in stomach GI will attempt to take it out . Consult GI in a.m. for further recommendations N.p.o. for now Gentle fluids Diabetes Cut back on Lantus to 12 units daily as patient n.p.o. Sliding scale Will monitor Obstructive sleep apnea Nontolerant to CPAP Chronic hypoxic respiratory failure 24/7 oxygen Chronic heart failure with preserved ejection fraction History of nonischemic cardiopathy EF 20-25 subsequently improved to 60 to 65% Status post biventricular ICD Getting gentle fluids Monitor for volume overload Continue home Lasix and spironolactone Paroxysmal atrial fibrillation On Toprol-XL 200 mg daily Holding Eliquis for now CKD stage IV Creatinine around 2 Will follow labs Rheumatoid arthritis Will hold methotrexate for now Anxiety and depression Continue home medications Chronic pain Continue pain medications DVT prophylaxis SCDs for now Restart Eliquis when able to Ambulatory dysfunction Wheelchair-bound Can transfer to wheelchair CODE STATUS Full code if there is chance of recovery Disposition Telemetry Notes For Next Care Provider 89 year old female who accidentally swallowed her hearing aid yesterday afternoon. Admitted for foreign body in stomach. Follow up KUB in morning showed progression of battery. GI consulted, colonoscopy performed without evidence of battery, consideration that it already passed and GI stating patient stable for discharge home. On 06/13/2025 patient medically stable for discharge home. To do: -Incidental Findings: chronic L2 fracture, renal cysts [ ] f/u with GI Medication Changes From Visit -see below Admission HPI Per Admitting Provider 89 year old female who accidentally swallowed her hearing aid yesterday afternoon. Presented to ER last night after she ate dinner. I was called and after reviewing CT the battery could be seen in the stomach in the center of a mass of food. I did not feel that endoscopy would be successful. She was admitted, given colonoscopy prep and today the hearing aid/battery seems to be in her transverse colon Discharge Exam Gen: A&O 3 NAD HEENT: NCAT, EOMI, not icteric. External ears normal. No rhinorrhea. Moist mucous membranes. Neck: Supple, full range of motion, no observable masses, No meningeal sign. Lungs: No Respiratory distress. CV: RRR, no edema, on chronic oxygen Abdomen: Soft, nondistended, No rebound tenderness. MSK: No joint swelling, no redness. Skin: No rashes, petechiae, lesions. Normal color per patient. Neuro: Normal Gait, Grossly intact. Psych: Appropriate for situation. Updated Medication List Medication Instructions Recorded Confirmed Type acetaminophen 500 mg tablet 1,000 mg PO BID 06/12/25 06/13/25 History albuterol sulfate 90 mcg/actuation 2 inh inhalation QID PRN Shortness 06/12/25 06/12/25 History breath activated powder inhaler Of Breath Or Wheezing amlodipine 5 mg tablet 5 mg PO DAILY 06/12/25 06/13/25 History apixaban 2.5 mg tablet (Eliquis) 2.5 mg PO BID 06/12/25 06/13/25 History atorvastatin 10 mg tablet 10 mg PO DAILY 06/12/25 06/13/25 History buspirone 7.5 mg tablet 7.5 mg PO TID 06/12/25 06/13/25 History calcium carbonate 300 mg PO TID PRN Heartburn 06/12/25 06/12/25 History cholecalciferol (vitamin D3) 50 50 mcg PO DAILY 06/12/25 06/13/25 History mcg (2,000 unit) capsule (Vitamin D3) docusate sodium 100 mg capsule 100 mg PO DAILY 06/12/25 06/13/25 History (Colace) folic acid 1 mg tablet 1 mg PO DAILY 06/12/25 06/13/25 History furosemide 40 mg tablet 40 mg PO DAILY 06/12/25 06/13/25 History gabapentin 100 mg capsule 100 mg PO DAILY 06/12/25 06/13/25 History gabapentin 300 mg capsule 300 mg PO HS 06/12/25 06/13/25 History insulin glargine 100 unit/mL (3 18 unit subcut QAM 06/12/25 06/13/25 History mL) subcutaneous pen (Lantus Solostar U-100 Insulin) lidocaine HCl 4 % topical patch 1 patch topical DAILY PRN Pain 06/12/25 06/12/25 History loperamide 2 mg capsule 2 mg PO DAILY PRN Diarrhea 06/12/25 06/12/25 History lorazepam 1 mg tablet 1 mg PO BID 06/12/25 06/13/25 History lorazepam 1 mg tablet 1 mg PO DAILY PRN Anxiety 06/12/25 06/12/25 History methotrexate sodium 2.5 mg tablet 5 mg PO WK 06/12/25 06/13/25 History montelukast 10 mg tablet 10 mg PO HS 06/12/25 06/13/25 History multivitamin (Daily-Kerry tablet) 1 tab PO DAILY 06/12/25 06/13/25 History ondansetron 4 mg disintegrating 4 mg PO DAILY PRN Nausea And 06/12/25 06/12/25 History tablet Vomiting pantoprazole 40 mg tablet,delayed 40 mg PO BID 06/12/25 06/13/25 History release (Protonix) polyethylene glycol 3350 17 gram 17 g PO DAILY PRN Constipation 06/12/25 06/12/25 History oral powder packet (Miralax) quetiapine 25 mg tablet 25 mg PO HS 06/12/25 06/12/25 History simethicone 180 mg capsule 180 mg PO TID bloating 06/12/25 06/13/25 History spironolactone 25 mg tablet 12.5 mg PO DAILY 06/12/25 06/13/25 History venlafaxine 75 mg tablet,extended 75 mg PO HS 06/12/25 06/13/25 History release 24 hr vit C 250 mg-vit E 90 mg-zinc 40 1 tab PO BID 06/12/25 06/13/25 History mg-copper 1 [id number] capsule (PreserVision AREDS-2) vitamin B complex 1 tab PO DAILY 06/12/25 06/13/25 History diclofenac sodium 1 % topical gel 2 g topical QID PRN ARTHRITIS 06/13/25 06/13/25 History hydrocodone 5 mg-acetaminophen 325 1 tab PO TID 06/13/25 06/13/25 History mg tablet metoprolol succinate 200 mg 200 mg PO DAILY 06/13/25 06/13/25 History tablet,extended release 24 hr (Toprol XL) nystatin 100,000 unit/gram topical 1 applic topical BID 06/13/25 06/13/25 History cream tocilizumab-aazg 162 mg/0.9 mL 162 mg subcut Q7D 06/13/25 06/13/25 History subcutaneous pen injector (Nasir Autoinjector) Hospital Stay Data Consultations 06/12/25 21:05 ED Decision to Admit Stat 06/13/25 08:00 Consult Gastroenterology Routine Procedures Performed Operation Date: 06/13/25 18:05 Actual Procedures p Colonoscopy - Marlin Cash Jr, MD Diagnostic Imagining Performed 06/12/25 19:56 CT abd pelvis wo con Stat Pending Results Patient Have Any Pending Studies at Discharge: No Discharge Instructions Given to Patient (Per Discharging Provider) Diagnosis: foreign body ingestion Incidental Findings: chronic L2 fracture, renal cysts Follow Ups: PCP, GI 1. Please follow up with PCP and GI. 2. Please keep regular bowel movements. 3. Stay hydrated! Total Time Total Time Spent Total Time Spent (In Minutes): I spent a total of 35 minutes in direct patient care, including [id number] time with the patient and/or family, reviewing medical records, ordering and reviewing diagnostic tests, and coordinating care with other healthcare providers. This time includes: history taking, physical examination, medical decision making, counseling, ECG interpretation, imaging interpretation, lab interpretation, orders, and education, excluding time spent in the performance of separately billed services.
[2025-06-13 18:10] VITALS: PULSE 74
[2025-06-13] MEDS ORDERED: GABAPENTIN 300 MG CAP PO SCH (21:00)
[2025-06-13] MEDS ORDERED: REMOVE LIDODERM PATCH SCH (21:00)
[2025-06-13] MEDS ORDERED: MONTELUKAST SODIUM 10 MG TABLET PO SCH (21:00)
[2025-06-13] MEDS ORDERED: VENLAFAXINE HCL XR 75 MG CAPXR PO SCH (21:00)
== END 2025-06-13 16:11 | disposition home or self-care (01) ==
LOC: ED 18:42 → INTOOBSV 23:53 → 4W 23:53 → SUATTDRO 23:53 → 4W 06-13 01:31